=== PATIENT | male | born 1960 | race Hispanic/Latino ===

== ENCOUNTER 2016-11-04 19:52 | Inpatient (IN) | payer MEDICARE, MEDICAID ==
[2016-11-04 19:52] VITALS: PULSE 90
[2016-11-04 20:15] VITALS: BMI 55.3
[2016-11-04] MEDS ORDERED: Morphine 4 mg/ml ISec IVP STA (20:30)
--- NOTE | 2016-11-04 20:41 | ED PDOC ---
Arrival/HPI - General Historian: Patient - General Time Seen by Provider: 11/04/16 20:09 - History of Present Illness Narrative History of Present Illness (Text): 11/04/16 20:38 [facility] w/ PMHx of HTN, DM, morbid obesity, COPD, CHF, urosepsis multiple times, chronic Montague and infections, reports one day h/o pain to the penile area, suprapubic area, chills, tactile fever with difficulty urinating despite having a montague catheter, states that his leg bag only had 25 ml of urine in it this morning and right now is empty. Patient also reports feeling SOB with no chest pain this afternoon around 1 pm, which lasted a few minutes and resolved. At this time, the patient denies any SOB, dyspnea or chest pain. Otherwise: (+) cough, (-) sore throat, (-) URI symptoms, (-) chest pain, (-) N/V/D, (-) flank pain, (-) other complaints. Uro : Rodney Ly PMD : Neela Colindres PA-C) Past Medical History - Provider Review Nursing Documentation Reviewed: Yes - Infectious Disease Hx of Infectious Diseases: None - Cardiac Hx Congestive Heart Failure: Yes Hx Hypertension: Yes - Pulmonary Hx Chronic Obstructive Pulmonary Disease (COPD): Yes - Neurological Other/Comment: Paraplegic / spinal tumor - HEENT Hx HEENT Disorder: No - Renal Hx Renal Disorder: No - Endocrine/Metabolic Hx Diabetes Mellitus Type 2: Yes - Hematological/Oncological Hx Anemia: Yes - Integumentary Hx Dermatological Disorder: No - Musculoskeletal/Rheumatological Hx Falls: No Other/Comment: paraplygia - Gastrointestinal Other/Comment: Morbid obesity, incontinent - Genitourinary/Gynecological Hx Genitourinary Disorders: Yes Hx Urinary Tract Infection: Yes - Psychiatric Hx Substance Use: No - Surgical History Other/Comment: laminectomy - Anesthesia Hx Anesthesia: Yes Hx Anesthesia Reactions: No Hx Malignant Hyperthermia: No Family/Social History - Physician Review Nursing Documentation Reviewed: Yes Family/Social History: No Known Family HX Smoking Status: Never Smoked Hx Alcohol Use: No Hx Substance Use: No Allergies/Home Meds Allergies/Adverse Reactions: Allergies Penicillins Allergy (Verified 11/04/16 19:57) ANAPHYLAXIS Home Medications: Home Meds Medication Instructions Recorded Confirmed Famotidine [Pepcid] 20 mg PO BID 09/17/15 11/04/16 Levalbuterol HCl [Xopenex] 1.25 mg IH Q6 PRN 09/17/15 11/04/16 Aspirin [Aspirin Chewable] 81 mg PO DAILY 07/11/16 11/04/16 Review of Systems - Review of Systems Constitutional: Normal, Fevers (tactile). absent: Fatigue, Weight Change Respiratory: Normal, SOB (this afternoon at 1pm, which has resolved), Cough. absent: Sputum, Wheezing Cardiovascular: Normal. absent: Chest Pain, Palpitations, Edema Gastrointestinal: Normal, Abdominal Pain. absent: Stool Changes, Appetite Changes Genitourinary Male: Normal, Dysuria, Urinary Output Changes (decrease in urine output). absent: Frequency, Hematuria Musculoskeletal: Normal. absent: Arthralgias, Back Pain, Neck Pain Skin: Normal. absent: Rash, Pruritis, Skin Lesions Neurological: Normal. absent: Headache, Dizziness, Focal Weakness Physical Exam - Physical Exam Narrative Physical Exam (Text): 11/04/16 20:43 GENERAL APPEARANCE: Patient is awake, alert, oriented x 3, in no mild painful distress. Patient is morbidly obese. SKIN: Warm, dry; (-) cyanosis, (-) rash. (-) Decubitus Ulcer EYES: (-) conjunctival pallor, (-) scleral icterus, (-) conjunctival hemorrhage. ENMT: Mucous membranes moist. Airway patent: (-) stridor. Pharynx: (-) erythema, (-) exudate. NECK: (-) tenderness, (-) stiffness, (-) meningismus, (-) lymphadenopathy. CHEST AND RESPIRATORY: (-) accessory muscle use. Lungs: (-) rales, (-) rhonchi, (-) wheezes, (-) rub; breath sounds equal bilaterally. HEART AND CARDIOVASCULAR: (-) irregularity; (-) murmur, (-) gallop, (-) rub. ABDOMEN AND GI: Soft; (+) suprapubic tenderness, (-) guarding; (-) organomegaly ; (-) mass; (-) CVA tenderness. : due to patient's body habitus, penis is not well visualized, (+) montague catheter with (+) yellow purulent discharge noted, (+) erythema to the scrotum with no tenderness and no edema. 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 EXTREMITIES: (-) deformity; (-) cellulitis, (-) lymphangitis; (-) subungual hemorrhage; (-) edema. NEURO AND PSYCH: Mental status as above; (-) focal findings. (Jorge KHAN, Neela Leggett) Vital Signs Temp Pulse Resp BP Pulse Ox 11/05/16 00:14 93 H 16 98 11/04/16 19:52 98.6 F 90 16 138/94 H 94 L Medical Decision Making ED Course and Treatment: I was available for consultation during PA evaluation. The chart was reviewed by me, and I agree with disposition. The documented history was done by the physician television tube inspector. The documented physical exam was done by the physician television tube inspector. The documented procedures were done by the physician television tube inspector. ( Riaz Tapia) 11/04/16 20:45 55 yo morbidly obese M presents with tactile fever, chills, cough, dysuria and decrease in urine output despite montague catheter. Plan: -- Labs -- IV fluids -- Urinalysis -- Wound, blood and urine culture -- CXR -- Morphine / Zofran -- Reassess and disposition Call placed to Dr. Rodney Ly. Case d/w Dr. Ly, recommends to flush and montague and not the remove at this time. CXR: NAD, as read by PA EKG: NSR at 100 bpm, (-) acute ST changes, as read by PA Labs reviewed, patient noted to have a WBC of 18, lactate wnl. Unable to obtain urine at this time. On reevaluation, patient is lying in bed comfortably in no acute distress, denies any shortness of breath, chest pain, nausea, abdominal pain, fever. Vital signs are stable physical exam is unchanged. Prior medical records reviewed. Patient has had a urine culture in the past 08/12 which showed gram (-) rods but no sensitivity was done due to colony count < 10K and another urine culture on 07/12/16 showed providencia stuatii, which is sensitive to rocephin. Of note, patient does not have a true pcn allergy, states that he "turns brown" in color when he takes pcn, denies any redness, rash, itchiness, facial / tongue / throat swelling or SOB when taking pcn. Rocephin 1 g IV ordered. Call placed to Dr. Rodney Ly and Dr. Frazier. Case d/w Dr. Frazier, arrangements made to admit the patient, she agrees with current plan of care. Case discussed with Dr. Ly and he recommends that the ER staff attempt to change the patient's Montague catheter. PATIENT AMBASSADOR and PA was able to successfully remove the old catheter and replace it with a new Montague catheter. The leg bag had drained of 350 mL of yellow purulent material mixed with urine from the new Montague catheter inserted by PATIENT AMBASSADOR. (Jorge KHAN,Neela Leggett) - Lab Interpretations Lab Results: 11/04/16 21:10 11/04/16 21:10 Lab Results 11/04/16 21:10: pO2 28 L, VBG pH 7.38, VBG pCO2 57.0, VBG HCO3 33.7 H, VBG Total CO2 35.4 H, VBG O2 Sat (Calc) 59.8, VBG Base Excess 6.8 H, VBG Potassium 4.6, Sodium 136.0, Chloride 98.0, Glucose 144 H, Lactate 1.8, FiO2 21.0, Venous Blood Potassium 4.6 11/04/16 21:10: Sodium 134, Chloride 97 L, Potassium 4.3, Carbon Dioxide 31, Anion Gap 10, BUN 24 H, Creatinine 1.2, Est GFR ( Amer) > 60, Est GFR ( Non-Af Amer) > 60, Random Glucose 136 H, Calcium 9.4, Total Bilirubin 0.5, AST 30, ALT 47, Alkaline Phosphatase 85, Total Protein 7.7, Albumin 3.9, Globulin 3.8, Albumin/Globulin Ratio 1.0 L 11/04/16 21:10: WBC 18.4 H D, RBC 6.11 H, Hgb 17.5, Hct 50.4, MCV 82.5, MCH 28.6 , MCHC 34.7, RDW 14.1, Plt Count 246, MPV 10.6, Neutrophils % (Manual) 83 H, Band Neutrophils % 4 H, Lymphocytes % (Manual) 8 L, Monocytes % (Manual) 4, Eosinophils % (Manual) 1, Platelet Evaluation Normal - RAD Interpretation Radiology Orders: 11/04/16 20:31 CHEST TWO VIEWS (PA/LAT) [RAD] Stat - Medication Orders Current Medication Orders: Discontinued Medications Ceftriaxone Sodium (Rocephin 1 Gram Ivpb) 1 gm in 100 mls @ 200 mls/hr IVPB STAT STA PRN Reason: Protocol Stop: 11/04/16 22:38 Last Admin: 11/04/16 23:04 Dose: 200 mls/hr Morphine Sulfate (Morphine) 4 mg IVP STAT STA Stop: 11/04/16 20:31 Last Admin: 11/04/16 21:08 Dose: 4 mg Ondansetron HCl (Zofran Inj) 4 mg IVP STAT STA Stop: 11/04/16 20:31 Last Admin: 11/04/16 21:08 Dose: 4 mg - PA / TELETYPE MECHANIC / Resident Statement /DO has reviewed & agrees with the documentation as recorded. Disposition/Present on Arrival - Present on Arrival Any Indicators Present on Arrival: Yes History of DVT/PE: No History of Uncontrolled Diabetes: No Urinary Catheter: Yes History of Decub. Ulcer: No History Surgical Site Infection Following: None - Disposition Have Diagnosis and Disposition been Completed?: Yes Disposition Time: 22:25 Patient Plan: Admission - Disposition Diagnosis: Urinary retention, Urinary catheter infection Disposition: HOSPITALIZED Patient Problems: Current Active Problems Problem Status Onset Urinary catheter infection Acute Urinary retention Acute Condition: STABLE
[2016-11-04 21:25] LABS: VENOUS BLOOD GAS BASE EXCESS 6.8 mmol/L (0.0-2.0); VENOUS BLOOD PH 7.38 (7.32-7.43)
[2016-11-04 21:30] LABS: ADD MANUAL DIFF? YES; HEMATOCRIT 50.4 % (42.0-52.0); MEAN CELL VOLUME 82.5 fL (80.0-105.0); MEAN CORPUSCULAR HEMOGLOBIN 28.6 pg (25.0-35.0); MEAN CORPUSCULAR HGB CONC 34.7 g/dl (31.0-37.0); MEAN PLATELET VOLUME 10.6 fl (7.0-11.0); PLATELET COUNT 246 10^3/uL (120.0-450.0); RED CELL DISTRIBUTION WIDTH 14.1 % (11.5-14.5); WHITE BLOOD COUNT 18.4 10^3/ul (4.5-11.0)
[2016-11-04 21:34] LABS: ALKALINE PHOSPHATASE 85 U/L (38-133); ALT/SGPT 47 U/L (7-56); AST/SGOT 30 U/L (15-59); BILIRUBIN,TOTAL 0.5 mg/dL (0.2-1.3); BLOOD UREA NITROGEN 24 mg/dL (7-21); CALCIUM 9.4 mg/dL (8.4-10.5); CARBON DIOXIDE 31 mmol/L (21-33); CHLORIDE 97 mmol/L (98-107); GFR AFRICAN-AMERICAN > 60; GLUCOSE,RANDOM 136 mg/dL (70-110); POTASSIUM 4.3 mmol/L (3.6-5.0); SODIUM 134 mmol/L (132-148); TOTAL PROTEIN 7.7 g/dL (5.8-8.3)
[2016-11-04] MEDS ORDERED: cefTRIAXone 1 gm 1 GM/100 ML BAG IVPB STA (22:09)
[2016-11-04 23:22] LABS: NEUTROPHIL 83 % (50.0-70.0)
[2016-11-04 23:23] LABS: BAND 4 % (0-2); EOSINOPHIL 1 % (0.0-3.0); PLATELET ESTIMATE NORMAL (NORMAL)
[2016-11-05 01:13] LABS: URINE BILIRUBIN NEGATIVE (NEGATIVE); URINE BLOOD LARGE (NEGATIVE); URINE GLUCOSE (UA) NEGATIVE (NEGATIVE); URINE KETONE NEGATIVE (NEGATIVE); URINE LEUKOCYTE ESTERASE MODERATE Leu/uL (NEGATIVE); URINE PROTEIN 100 mg/dL (<30 mg/dL); URINE UROBILINOGEN 0.2 E.U./dL (<1 E.U./dL)
[2016-11-05 01:15] LABS: URINE APPEARANCE TURBID (CLEAR); URINE COLOR YELLOW (YELLOW)
[2016-11-05 01:22] LABS: URINE WBC TNTC /hpf (0-6)
[2016-11-05] MEDS ORDERED: Oxycodone/Acetaminophen 10/325 mg Tab PO STA (05:48)
--- NOTE | 2016-11-05 05:49 | CP.PCM.PN ---
Subjective - Date & Time of Evaluation Date of Evaluation: 11/05/16 Time of Evaluation: 05:48 - Subjective Subjective: This 55 year old white male with history of DM, HTN, morbid obesity, CHF, COPD, urosepsis, chronic Ceron , and urinary infections, is admitted for urinary retention and urinary tract infection. He was seen at bedside because he complained of pain in lower back, right leg, pain is mild ,not associated with paraesthesia, weakness. Objective - Vital Signs/Intake and Output Vital Signs (last 24 hours): Temp Pulse Resp BP Pulse Ox 97.9 F 92 H 20 123/77 96 11/05/16 01:05 11/05/16 01:05 11/05/16 01:11/05/16 01:11/05/16 00:30 - Medications Medications: Current Medications Oxycodone/Acetaminophen (Percocet 10/325 Mg Tab) 1 tab PO STAT STA Stop: 11/05/16 05:49 - Constitutional Appears: Well, No Acute Distress - Head Exam Head Exam: ATRAUMATIC, NORMOCEPHALIC - Eye Exam Eye Exam: Normal appearance - ENT Exam ENT Exam: Normal External Ear Exam - Neck Exam Neck Exam: Normal Inspection - Respiratory Exam Respiratory Exam: NORMAL BREATHING PATTERN - Cardiovascular Exam Cardiovascular Exam: absent: JVD - GI/Abdominal Exam GI & Abdominal Exam: absent: Distended - Rectal Exam Rectal Exam: Deferred - Extremities Exam Extremities Exam: Normal Inspection - Back Exam Back Exam: NORMAL INSPECTION - Neurological Exam Neurological Exam: Alert, Oriented x3 - Psychiatric Exam Psychiatric exam: Normal Affect, Normal Mood - Skin Skin Exam: Normal Color Assessment and Plan - Assessment and Plan (Free Text) Assessment: Low back pain. Righ leg pain. Obesity. Urinary tract infection. Urinary retention. DM II. HTN. CHF. COPD. Plan: Percocet 325/10 one dose stat. Continue present management.
[2016-11-05] MEDS ORDERED: Levalbuterol 1.25 MG/3 ML Inhal Soln UD IH PRN (06:41)
[2016-11-05] MEDS: Insulin Reg-LOW-Coverage SC SCH ×4 (08:09→22:03)
[2016-11-05] MEDS: Nystatin 100,000 Units/gm Topical Pow(15 gm) TOP SCH ×2 (09:43→18:21)
--- NOTE | 2016-11-05 10:02 | RAD ---
HISTORY: cough COMPARISON: No prior. TECHNIQUE: Chest PA and lateral FINDINGS: LUNGS: No active pulmonary disease. PLEURA: No significant pleural effusion identified. No pneumothorax apparent. CARDIOVASCULAR: Normal. OSSEOUS STRUCTURES: No significant abnormalities. VISUALIZED UPPER ABDOMEN: Normal. OTHER FINDINGS: None. IMPRESSION: No active disease.
--- NOTE | 2016-11-05 15:49 | CARD ---
APPROVED REPORT EKG Measurement Heart [id number] <Conclusion> Normal sinus rhythm Possible Left atrial enlargement Borderline ECG
[2016-11-05] MEDS: Oxycodone/Acetaminophen 5/325 mg Tab PO PRN (20:06)
[2016-11-06] MEDS: Oxycodone/Acetaminophen 5/325 mg Tab PO PRN ×3 (02:47→23:21)
--- NOTE | 2016-11-06 08:05 | HP ---
The patient is a 55-year-old male. CHIEF COMPLAINT: Lower abdominal pain, burning. HISTORY OF PRESENT ILLNESS: The patient with past medical history of hypertension, diabetes mellitus, morbid obesity, COPD, congestive heart failure , urosepsis multiple times, chronic Ceron catheter and multiple infections. Complained about pain in the penile area, suprapubic area, chills, just started fever, difficulty urinating despite having Ceron catheter. States that his bag only had of urine in bag this morning and right now is empty. The patient also reports feeling shortness of breath with no chest pain in this afternoon around 1 p.m. Then actually, staff called me and I told them to transfer the patient to the Emergency Room. The patient was seen and examined in his room, looks comfortable, positive coughing. PAST MEDICAL HISTORY: Hypertension, diabetes mellitus, morbid obesity, COPD, congestive heart failure, urosepsis multiple times, chronic Ceron catheter and infection, anemia, paraplegia, penectomy, multiple times urinary tract infection, laminectomy, history of a back tumor. FAMILY HISTORY: Father and mother noncontributory. HABITS: Never smoking, no drugs, no ethanol. ALLERGIES: THE PATIENT IS ALLERGIC TO PENICILLIN. HOME MEDICATIONS: Pepcid, Xopenex, aspirin. REVIEW OF SYSTEMS: The patient seen and examined on the bedside, looks comfortable. No nausea, vomiting, diarrhea. No hematuria, no hematochezia. No swelling of the leg. No chest pain, no palpitation, but sometimes coughing, having shortness of breath. Pain during urination, penile area has irritation, has penectomy. PHYSICAL EXAMINATION: VITAL SIGNS: Temperature 98.6, pulse 60, respiratory rate 18, blood pressure 120/80. HEENT: Head normocephalic, atraumatic. Eyes: PERRLA. Extraocular muscles intact. Conjunctivae clear. Nose patent. Mucous membranes moist. NECK: Supple. No carotid bruit, no JVD, no thyromegaly. CHEST: Bilaterally symmetrical. HEART: S1, S2 positive. LUNGS: Clear to auscultation. ABDOMEN: Soft, no organomegaly. EXTREMITIES: No edema, no cyanosis. NEUROLOGIC: The patient is awake, alert, moving all 4 extremities. No focal deficits. LABORATORIES: White blood cells is 18.4, hemoglobin 17.5, hematocrit 50.4, platelets 246. Sodium 134, potassium 4.3, BUN 24, creatinine 1.2, glucose 136. ASSESSMENT AND PLAN: The patient is a 55-year-old male with leukocytosis, hyperglycemia, hypochloremia, increased BUN, has urinary tract infection, urinary retention. The patient is admitted. Consult called with Dr. Ly, urologist, and infectious disease, Dr. Madden. The patient failed treatment as outpatient, has history of hypertension, diabetes mellitus, morbid obesity, chronic obstructive pulmonary disease, congestive heart failure, urosepsis multiple times, chronic Ceron catheter. Started antibiotics. Now, he is complaining about constipation. Will give him MiraLax. We will follow up. Thalia Frazier MD cc: [id number] TT: 11/06/2016 08:05:06 en MTDD
[2016-11-06] MEDS: Insulin Reg-LOW-Coverage SC SCH ×3 (08:12→17:25)
[2016-11-06] MEDS: POLYETHYLENE GLYCOL 3350 17 GM/Dose PACKET PO SCH (09:53)
[2016-11-06] MEDS: Nystatin 100,000 Units/gm Topical Pow(15 gm) TOP SCH ×3 (09:57→18:45)
[2016-11-06] MEDS: Aztreonam 1 Gm in NS 100mL 100 ML IVPB SCH ×2 (17:33→21:42)
--- NOTE | 2016-11-06 18:12 | CON ---
DATE: 11/06/2016 REFERRING PHYSICIAN: Dr. Frazier. REASON FOR CONSULT: Chronic lung disease, paraplegic, obesity, may have sleep apnea syndrome. HISTORY OF PRESENT ILLNESS: This is a 55-year-old gentleman with multiple medical issues, he is a pa raplegic with hypertension, diabetes, chronic lung disease, heart failure, recurrent urosepsis, who s tarted having fever, chills, pain in the suprapubic area. Urine output was decreased, urine bag was empty when he came to ER. Ceron catheter was changed and placed new one with some relieving of the d iscomfort. Never had study for sleep apnea, mild shortness of breath with exertion. No hemoptysis o r hematemesis, no hematuria, no diarrhea. PAST MEDICAL HISTORY: Paraplegia, chronic lung disease, hypertension, diabetes, morbid obesity, hear t failure, catheter dependent for urination. FAMILY HISTORY: No significant cardiopulmonary disease reported. SOCIAL HISTORY: Nonsmoker, nondrinker. ALLERGIES: PENICILLIN. MEDICATIONS: He is on aspirin 81 mg daily, doxycycline 100 mg twice a day, heparin 5000 units subQ q . 8 hours, insulin coverage, metoprolol tartrate 25 mg twice a day, MiraLax 17 grams daily, nystatin 1 gram twice a day, Pepcid 20 mg twice a day, Percocet 5/325 one tab q. 4 hours p.r.n. and Xopenex 1 .25 mg q. 6 hours. REVIEW OF SYSTEMS: No headache, no rhinitis. Admits to have snoring, daytime sleepy and tired. No chest pain, no nausea, no vomiting. Short of breath with exertion. He feels better after replacing the Ceron catheter, trace leg swelling. PHYSICAL EXAMINATION: GENERAL: Lying in the bed in no acute distress. VITAL SIGNS: Temp is 98, heart rate is 65, respiratory rate is 20, blood pressure 149/97, pulse ox 9 6% on nasal cannula. HEENT: Moist mucous membranes. Crowded airway. Mallampati score is 4. NECK: Short, thick neck. LUNGS: Has a few scattered rhonchi. HEART: S1 and S2. ABDOMEN: Soft, nontender. No organomegaly. EXTREMITIES: Does have trace edema, does not have a penis, has a hole with catheter in. NEUROLOGIC: Awake, alert, follows simple commands. He is a paraplegic. LABORATORY DATA: Shows hemoglobin 17.5, hematocrit 50.4, WBC 18,000, platelet is 246. PTT is 55. V BG show pH 7.38, pCO2 of 57, O2 of 28. Blood sugar is 120. Sodium 134, potassium 4.3, chloride 97, bicarbonate 31, BUN 24, creatinine 1.2, glucose 136, calcium 9.4, AST 30, ALT 47, alkaline phosphatas e is 85, albumin is 3.9. Urine culture has gram-negative rods. Blood culture: There is no growth. IMPRESSION AND PLAN: Recurrent urinary tract infection, obstruction of Ceron catheter with urinary r etention, paraplegic, sleep apnea syndrome, diabetes, morbid obesity, chronic lung disease. We will discontinue doxycycline, place him on Zosyn 2 g IV q. 8 hours, pending urine culture report. Replac ement BiPAP 03/10 with 35% oxygen while sleeping. Gastric prophylaxis, deep venous thrombosis prophyl axis. Thank you and will follow with you. Yosef Dunbar MD cc: [id number] TT: 11/06/2016 18:11:22 Confirmation # [id number] Dictation # [id number] jn
--- NOTE | 2016-11-06 18:24 | PN ---
DATE: 11/06/2016 SUBJECTIVE: The patient was seen and examined on the bedside. Still complaining about lower abdominal pain. No nausea, vomiting, or diarrhea. No hematuria or hematochezia. No headache, no dizziness. No fever, no chills. No shortness of breath. PHYSICAL EXAMINATION: VITAL SIGNS: Temperature is 99.1, pulse 60, blood pressure 144/80, respiratory rate 19. HEENT: Head normocephalic, atraumatic. Eyes: PERRLA. Extraocular muscles intact. Conjunctivae clear. Nose patent. Mucous membranes moist. NECK: Supple. No carotid bruit or thyromegaly. CHEST: Bilaterally symmetrical. HEART: S1, S2 positive. LUNGS: Clear to auscultation. ABDOMEN: Soft. Bowel sounds present. No organomegaly. EXTREMITIES: No edema, no cyanosis. NEUROLOGIC: The patient is awake, alert, moving all 4 extremities. No focal deficits. MEDICATIONS: Aspirin, Azactam, heparin, insulin, Lopressor, MiraLax, Pepcid, oxycodone and Xopenex. LABORATORY DATA: White blood cells 18.4, hemoglobin 17.5, hematocrit 50.4, and platelets 246. Glucose 120, 112, 145, 144, 122 and 115. ASSESSMENT AND PLAN: The patient has a history of hypertension, diabetes mellitus, morbid obesity, chronic obstructive pulmonary disease, congestive heart failure, urosepsis multiple times, a chronic Ceron catheter and a genitourinary infection, anemia, paraplegia, penectomy, multiple times urinary tract infection, laminectomy, and history of a back tumor, who came with another type of a urinary tract infection. Has leukocytosis, hyperglycemia, hyperchloremia and came with urinary retention also. The patient was admitted Dr. Ankit Ly, Urologist and infectious disease, Dr. Madden consult was called. the antibiotics the patient is improving. We will continue aspirin, aztreonam, and heparin subcutaneously 5000 for DVT prophylaxis, metoprolol for blood pressure, MiraLax for constipation, Pepcid for GI prophylaxis, oxycodone once in a while for severe pain. The patient is on Xopenex will follow up. Thalia Frazier MD cc: [id number] TT: 11/06/2016 18:23:59 Confirmation # [id number] Dictation # [id number] UGARTE
[2016-11-06] MEDS ORDERED: Levalbuterol 1.25 MG/3 ML Inhal Soln UD IH PRN (18:33)
[2016-11-07] MEDS: Insulin Reg-MEDIUM-Coverage SC SCH ×4 (00:11→16:14)
[2016-11-07 07:37] LABS: HEMATOCRIT 42.2 % (42.0-52.0); MEAN CELL VOLUME 84.1 fL (80.0-105.0); MEAN CORPUSCULAR HEMOGLOBIN 27.9 pg (25.0-35.0); MEAN CORPUSCULAR HGB CONC 33.2 g/dl (31.0-37.0); MEAN PLATELET VOLUME 10.7 fl (7.0-11.0); RED CELL DISTRIBUTION WIDTH 14.3 % (11.5-14.5); WHITE BLOOD COUNT 8.8 10^3/ul (4.5-11.0)
[2016-11-07 07:52] LABS: ALKALINE PHOSPHATASE 68 U/L (38-133); ALT/SGPT 37 U/L (7-56); AST/SGOT 17 U/L (15-59); BILIRUBIN,TOTAL 0.6 mg/dL (0.2-1.3); BLOOD UREA NITROGEN 19 mg/dL (7-21); CALCIUM 8.4 mg/dL (8.4-10.5); CARBON DIOXIDE 31 mmol/L (21-33); CHLORIDE 100 mmol/L (98-107); GFR AFRICAN-AMERICAN > 60; GLUCOSE,RANDOM 102 mg/dL (70-110); SODIUM 135 mmol/L (132-148); TOTAL PROTEIN 6.9 g/dL (5.8-8.3)
[2016-11-07 08:21] LABS: CHOLESTEROL 191 mg/dL (130-200)
[2016-11-07 08:25] LABS: INR 2.41 (0.93-1.08)
--- NOTE | 2016-11-07 08:25 | PN ---
DATE: 11/07/2016 The patient is a 55-year-old male. The patient was seen and examined on the bedside, having BiPAP, l ooks relaxed. No fever, no chills. No nausea, vomiting, diarrhea. No hematuria, no hematochezia. No headache, no dizziness. PHYSICAL EXAMINATION: VITAL SIGNS: Temperature 99.1, pulse 80, blood pressure 144/80, respiratory rate 19. HEENT: Head normocephalic, atraumatic. Eyes closed. Nose patent. Mucous membranes moist. NECK: Supple. No carotid bruit, no JVD, no thyromegaly. CHEST: Bilaterally symmetrical. HEART: S1, S2 positive. LUNGS: Clear to auscultation. ABDOMEN: Soft. Bowel sounds positive. EXTREMITIES: No edema, no cyanosis. NEUROLOGIC: The patient is sleepy, arousable, moving all 4 extremities. MEDICATIONS: Aspirin, Coumadin, heparin, insulin, Lopressor, MiraLax, nystatin powder, famotidine, P ercocet, Xopenex. LABORATORIES: White blood cells 18.4, hemoglobin 17.5, hematocrit 50.4, platelets 246. Glucose 139, 110, 120, 112, 145, 144. ASSESSMENT AND PLAN: The patient is a 55-year-old male with leukocytosis, uncontrolled diabetes fabrizio itus, has proteinuria, hematuria, urinary tract infection, comorbid obesity, had splenectomy, in dwel ling Ceron catheter. Recurrent urinary tract infection, obstructive uropathy with Ceron catheter, ur inary retention, paraplegia, sleep apnea syndrome, history of benign tumor of the back, diabetes fabrizio itus, morbid obesity, chronic obstructive lung disease. Dr. Dunbar discontinued the doxycycline, put the patient on Zosyn, pending on the urine culture. Replacement BiPAP 10/ with 35 oxygen while slee ping. Gastric prophylaxis, deep venous thrombosis prophylaxis. Will repeat labs. The patient has h istory of atrial fibrillation with deep venous thrombosis, was on Coumadin. Restarted Coumadin and h eparin. Will follow up. Thalia Frazier MD cc: [id number] TT: 11/07/2016 08:24:50 Confirmation # [id number] Dictation # [id number]
[2016-11-07] MEDS: POLYETHYLENE GLYCOL 3350 17 GM/Dose PACKET PO SCH (09:11)
[2016-11-07] MEDS: Nystatin 100,000 Units/gm Topical Pow(15 gm) TOP SCH ×2 (09:13→17:31)
[2016-11-07] MEDS ORDERED: levoFLOXacin 500 MG TAB PO SCH (12:15)
[2016-11-07] MEDS: Oxycodone/Acetaminophen 5/325 mg Tab PO PRN (13:49)
[2016-11-07 17:08] VITALS: BP 170/94; PULSE 60; RESP 18; TEMP 98.4; O2SAT 94
--- NOTE | 2016-11-07 18:41 | CP.PCM.CON ---
History of Present Illness - History of Present Illness History of Present Illness: Infectious Disease Consultation: November 07, 2016 54 yo male with morbid obesity [place] [facility] [place], fevers, and chills. Upper thigh pain. Leukocytosis of 18.4 on admission. Patient appears awake and alert. Supportive care. No fevers documented during this hospitalization. Wood cultures taken. Patient with suprapubic site discomfort and difficulty urinating. PMHx: Congestive Heart Failure, Chronic Obstructive Pulmonary Disease, Morbid Obesity , Benign Neoplasm of Spine, Paraplegia, history of multiple UTIs, left eye blindness. PSHx: Laminectomy 03/2015, Catheter placement 02/2015 Allergies: PCN Social Hx: no tobacco, EtOH, or illicit drug use. [place] resident Active Medications Aspirin (Aspirin Chewable) 81 mg PO DAILY [facility] Last Admin: 11/07/16 09:09 Dose: 81 mg Famotidine (Pepcid) 20 mg PO 1000,2200 [facility] Last Admin: 11/07/16 09:11 Dose: 20 mg Heparin Sodium (Porcine) (Heparin) 5,000 units SC Q8 [facility] PRN Reason: Protocol Last Admin: 11/07/16 13:46 Dose: 5,000 units Insulin Human Regular (Humulin R Med) 0 units SC ACHS [facility] PRN Reason: Protocol Last Admin: 11/07/16 16:14 Dose: Not Given Levalbuterol HCl (Xopenex) 1.25 mg IH Q6 PRN PRN Reason: Shortness of Breath Levofloxacin (Levaquin) 500 mg PO DAILY [facility] Stop: 11/14/16 00:01 Last Admin: 11/07/16 12:21 Dose: 500 mg Metoprolol Tartrate (Lopressor) 25 mg PO BID [facility] Last Admin: 11/07/16 17:31 Dose: 25 mg Nystatin (Nystop Topical Powder) 1 gm TOP BID [facility] Last Admin: 11/07/16 17:31 Dose: 1 applic Oxycodone/Acetaminophen (Percocet 5/325 Mg Tab) 1 tab PO Q4 PRN PRN Reason: Pain, moderate (4-7) Stop: 11/09/16 18:34 Last Admin: 11/07/16 13:49 Dose: 1 tab Polyethylene Glycol (Miralax) 17 gm PO DAILY [facility] Last Admin: 11/07/16 09:11 Dose: 17 gm Warfarin Sodium (Coumadin) 2.5 mg PO 1800 [facility] PRN Reason: Protocol Last Admin: 11/07/16 17:30 Dose: 2.5 mg Family Hx: none given ROS: No fevers, chills, nausea, vomiting, diarrhea, headaches, dizziness, chest pain , melena, hematuria, hematemesis, hematochezia, depression, anxiety, vision loss , hearing loss, loss of consciousness, chest pain, abdominal pain. Past Patient History - Infectious Disease Hx of Infectious Diseases: None - Past Medical History & Family History Past Medical History?: Yes - Past Social History Smoking Status: Former Smoker - CARDIAC Hx Congestive Heart Failure: Yes Hx Hypertension: Yes - PULMONARY Hx Chronic Obstructive Pulmonary Disease (COPD): Yes - NEUROLOGICAL Other/Comment: Paraplegic / spinal tumor - HEENT Hx HEENT Problems: No - RENAL Hx Chronic Kidney Disease: No - ENDOCRINE/METABOLIC Hx Diabetes Mellitus Type 2: Yes - HEMATOLOGICAL/ONCOLOGICAL Hx Anemia: Yes - INTEGUMENTARY Hx Dermatological Problems: No - MUSCULOSKELETAL/RHEUMATOLOGICAL Hx Falls: No - GASTROINTESTINAL Other/Comment: Morbid obesity, incontinent - GENITOURINARY/GYNECOLOGICAL Hx Genitourinary Disorders: Yes Hx Urinary Tract Infection: Yes - PSYCHIATRIC Hx Substance Use: No - SURGICAL HISTORY Other/Comment: laminectomy - ANESTHESIA Hx Anesthesia: Yes Hx Anesthesia Reactions: No Hx Malignant Hyperthermia: No Meds Home Medications: Home Medication List Medication Instructions Recorded Confirmed Type Polyethylene Glycol 3350 [Miralax] 17 gm PO DAILY packet 11/07/16 Rx Warfarin [Coumadin] 2.5 mg PO 1800 tab 11/07/16 Rx levoFLOXacin [Levaquin] 500 mg PO DAILY tab 11/07/16 Rx Allergies/Adverse Reactions: Allergies Allergy/AdvReac Type Severity Reaction Status Date / Time Penicillins Allergy ANAPHYLAXIS Verified 11/04/16 19:57 - Medications Medications: Current Medications Aspirin (Aspirin Chewable) 81 mg PO DAILY [facility] Last Admin: 11/07/16 09:09 Dose: 81 mg Famotidine (Pepcid) 20 mg PO 1000,2200 [facility] Last Admin: 11/07/16 09:11 Dose: 20 mg Heparin Sodium (Porcine) (Heparin) 5,000 units SC Q8 [facility] PRN Reason: Protocol Last Admin: 11/07/16 13:46 Dose: 5,000 units Insulin Human Regular (Humulin R Med) 0 units SC ACHS [facility] PRN Reason: Protocol Last Admin: 11/07/16 16:14 Dose: Not Given Levalbuterol HCl (Xopenex) 1.25 mg IH Q6 PRN PRN Reason: Shortness of Breath Levofloxacin (Levaquin) 500 mg PO DAILY [facility] Stop: 11/14/16 00:01 Last Admin: 11/07/16 12:21 Dose: 500 mg Metoprolol Tartrate (Lopressor) 25 mg PO BID [facility] Last Admin: 11/07/16 17:31 Dose: 25 mg Nystatin (Nystop Topical Powder) 1 gm TOP BID [facility] Last Admin: 11/07/16 17:31 Dose: 1 applic Oxycodone/Acetaminophen (Percocet 5/325 Mg Tab) 1 tab PO Q4 PRN PRN Reason: Pain, moderate (4-7) Stop: 11/09/16 18:34 Last Admin: 11/07/16 13:49 Dose: 1 tab Polyethylene Glycol (Miralax) 17 gm PO DAILY [facility] Last Admin: 11/07/16 09:11 Dose: 17 gm Warfarin Sodium (Coumadin) 2.5 mg PO 1800 [facility] PRN Reason: Protocol Last Admin: 11/07/16 17:30 Dose: 2.5 mg Physical Exam - Constitutional Appears: Non-toxic, No Acute Distress, Chronically Ill Additional comments: morbidly obese - Head Exam Head Exam: ATRAUMATIC, NORMOCEPHALIC - Eye Exam Eye Exam: EOMI, PERRL Pupil Exam: NORMAL ACCOMODATION, PERRL - ENT Exam ENT Exam: Mucous Membranes Moist, Normal External Ear Exam, TM's Normal Bilaterally - Neck Exam Neck exam: Positive for: Full Rom, Normal Inspection - Respiratory Exam Respiratory Exam: Clear to Auscultation Bilateral, NORMAL BREATHING PATTERN. absent: Rales, Rhonchi, Wheezes - Cardiovascular Exam Cardiovascular Exam: REGULAR RHYTHM, RRR, +S1, +S2 - GI/Abdominal Exam GI & Abdominal Exam: Normal Bowel Sounds, Soft. absent: Distended, Tenderness - Extremities Exam Extremities exam: Positive for: joint swelling, pedal edema Additional comments: +1-2 edema of the lower extremities bilaterally. - Neurological Exam Neurological exam: Alert, CN II-XII Intact, Oriented x3 - Psychiatric Exam Psychiatric exam: Normal Affect, Normal Mood Results - Vital Signs Recent Vital Signs: Last Vital Signs Temp 98.4 F 06/05/17 16:00 Pulse 60 11/07/16 16:00 Resp 18 11/07/16 16:00 BP 170/94 H 11/07/16 17:31 Pulse Ox 94 L 11/07/16 16:00 - Labs Result Diagrams: 11/07/16 07:00 11/07/16 07:00 Labs: Laboratory Results - last 24 hr 11/06/16 11/06/16 11/07/16 16:31 21:46 07:00 WBC 8.8 D RBC 5.02 Hgb 14.0 Hct 42.2 MCV 84.1 MCH 27.9 MCHC 33.2 RDW 14.3 Plt Count 218 MPV 10.7 PT INR Sodium Potassium Chloride Carbon Dioxide Anion Gap BUN Creatinine Est GFR ( Amer) Est GFR (Non-Af Amer) POC Glucose (mg/dL) 110 139 H Random Glucose Hemoglobin A1c Calcium Total Bilirubin AST ALT Alkaline Phosphatase Total Protein Albumin Globulin Albumin/Globulin Ratio Triglycerides Cholesterol LDL Cholesterol Direct HDL Cholesterol TSH 3rd Generation 11/07/16 11/07/16 11/07/16 07:00 07:15 08:00 WBC RBC Hgb Hct MCV MCH MCHC RDW Plt Count MPV PT INR Sodium 135 Potassium 4.0 Chloride 100 Carbon Dioxide 31 Anion Gap 8 L BUN 19 Creatinine 0.8 Est GFR ( Amer) > 60 Est GFR (Non-Af Amer) > 60 POC Glucose (mg/dL) 103 Random Glucose 102 Hemoglobin A1c Calcium 8.4 Total Bilirubin 0.6 AST 17 ALT 37 Alkaline Phosphatase 68 Total Protein 6.9 Albumin 3.4 Globulin 3.5 Albumin/Globulin Ratio 1.0 L Triglycerides 192 H Cholesterol 191 LDL Cholesterol Direct 128 HDL Cholesterol 29 TSH 3rd Generation 11/07/16 11/07/16 11/07/16 08:00 08:00 10:50 WBC RBC Hgb Hct MCV MCH MCHC RDW Plt Count MPV PT 26.0 H INR 2.41 H Sodium Potassium Chloride Carbon Dioxide Anion Gap BUN Creatinine Est GFR ( Amer) Est GFR (Non-Af Amer) POC Glucose (mg/dL) Random Glucose Hemoglobin A1c 6.2 Calcium Total Bilirubin AST ALT Alkaline Phosphatase Total Protein Albumin Globulin Albumin/Globulin Ratio Triglycerides Cholesterol LDL Cholesterol Direct HDL Cholesterol TSH 3rd Generation 1.99 11/07/16 11/07/16 11:44 16:08 WBC RBC Hgb Hct MCV MCH MCHC RDW Plt Count MPV PT INR Sodium Potassium Chloride Carbon Dioxide Anion Gap BUN Creatinine Est GFR ( Amer) Est GFR (Non-Af Amer) POC Glucose (mg/dL) 170 H 117 H Random Glucose Hemoglobin A1c Calcium Total Bilirubin AST ALT Alkaline Phosphatase Total Protein Albumin Globulin Albumin/Globulin Ratio Triglycerides Cholesterol LDL Cholesterol Direct HDL Cholesterol TSH 3rd Generation Assessment & Plan - Assessment and Plan (Free Text) Assessment: 55 yo male who is morbidly obese presenting with groin pain, fevers, and chills. Proteus grew from wound cultures although urine cultures are still pending. The patient is on Levaquin now and was on Aztreonam for a day or so. The patient states that he feels better currently. Supportive care. Proteus growth sensitive to Aztreonam but the gram negative in the urine is still pending identification. Continue on Levaquin for now. Thank you for allowing me to participate in the care of the patient, we will follow with you.
--- NOTE | 2016-11-08 07:37 | PN ---
DATE: 11/07/2016 REFERRING PHYSICIAN: Dr. Frazier. SUBJECTIVE: He is lying in the bed, head at 45 degree, night was unremarkable. Tolerated BiPAP well . No headache, no rhinitis, no cough, no shortness of breath, no nausea, no vomiting, draining good urine in the Ceron in, no significant leg swelling. OBJECTIVE: GENERAL: No acute distress. VITAL SIGNS: Temperature is 98, heart rate is 60, respiratory rate is 18, blood pressure 170/94, pul se ox 94% on supplemental oxygen. HEENT: Moist mucous membranes. Crowded airway. Mallampati score is 4. NECK: Supple. No JVD. LUNGS: Has a fair airflow with few rhonchi. HEART: S1 and S2. ABDOMEN: Soft, obese, nontender. Ceron catheter is draining well. EXTREMITIES: There is not much edema. NEUROLOGIC: Awake, alert, follows simple commands. MEDICATIONS: He is on aspirin 81 mg daily, Coumadin 2.5 mg daily, heparin 5000 units subQ q. 8 hour s, insulin coverage, Levaquin 500 mg daily, metoprolol tartrate 25 mg twice a day, MiraLax 17 grams d aily, Pepcid 20 mg twice a day, Percocet 5/325 one tab q. 4 hours p.r.n., Xopenex inhaled q. 6 hours p.r.n. LABORATORY DATA: Shows hemoglobin 14.____, hematocrit 42.2, WBC 8.8, platelet count is 218. INR tod ay 2.41, blood sugar 117, ____ 192, TSH 1.9. Sodium 137, potassium 4.0, chloride 100, bicarbonate 31 , BUN 19, creatinine 0.8, glucose 102, calcium is 8.4. Total bili 0.6, AST 37, ALT 37, alkaline phos phatase is 68, albumin is 3.5. Microbiology: Urine culture has gram-negative cordell, penile area cultu re has proteus mirabilis, which is sensitive to aztreonam as well as Levaquin. The patient IS ALLERGIC TO PENICILLIN. IMPRESSION AND PLAN: Recurrent urinary tract infection, obstructive uropathy, paraplegic, sleep apne a syndrome, diabetes, morbid obesity, chronic lung disease. Continue antibiotics as per infectious d iseases. Continue BiPAP while sleeping. Careful with sedation. Gastric prophylaxis. Deep venous t hrombosis prophylaxis. We will discontinue subQ heparin. INR in the morning. Thank you and will f manuel with you. Yosef Dunbar MD cc: [id number] TT: 11/07/2016 20:21:12 Confirmation # [id number] Dictation # [id number] jn
--- NOTE | 2016-11-11 18:02 | PQF GENQUE ---
11/11/16 Dr. Frazier, Per data processing auditor, ED notes state patient had a urinary catheter infection. Was patient's UTI due to the catheter, or not? Thank you. YES Clarification of your documentation is requested to better reflect the severity of illness and intensity of treatment of your patient. Indicators present [] Specify: [] [] Specify: [] [] Specify: [] [] Specify: [] Location in the medical record that reflects the above clinical findings: [] Treatment Provided: [x] PHYSICIAN'S RESPONSE Based on your medical judgment of the clinical indicators outlined above please clarify the following: [] Practitioner response [] If unable to determine, please check the box, sign and date. Present On Admission (POA) Indicator: []x Present at the time of admission [] Not present at the time of admission [] Clinically Undetermined In responding to this query, please exercise your independent professional judgment. The fact that a question is asked does not imply that any particular answer is desired or expected. Thank you for your clarification on this documentation. If you have any questions please call:[ ] * Thank you, [ ] senior corporate recruiter TORITO
--- NOTE | 2016-12-21 08:19 | DS ---
DATE OF ADMISSION: 11/04/2016 DATE OF DISCHARGE and dictation summery : 11/07/2016 CHIEF COMPLAINT: Lower abdominal pain and burning. HISTORY OF PRESENT ILLNESS: The patient is a 55-year-old male with past medical history of hypertension, diabetes mellitus, morbid obesity, COPD, congestive heart failure, urosepsis, multiple times with a chronic Ceron catheter, multiple infections, came with pain in the penile area, suprapubic area, chills, fever and difficulty in urinating despite having Ceron catheter. Ceron catheter bag is empty. The patient had some obstruction, having pain. We admitted the patient, seen by Dr. Nci Vigil. Urology consult was called, antibiotics were given, got better, [place] back [place] PAST MEDICAL HISTORY: Hypertension, diabetes mellitus, morbid obesity, COPD, congestive heart failure, urosepsis, multiple times; chronic positive catheter and the infections, anemia, paraplegia, bunionectomy multiple times, urinary tract infections, laminectomy and history of back tumor. FAMILY HISTORY: Father, mother are noncontributory. HABITS: Never smoked. No drugs or ethanol as per the patient ALLERGIES: THE PATIENT IS ALLERGIC TO PENICILLIN. HOME MEDICATIONS: Reviewed by me. For more details, see my progress note of 11/07/2016. Thalia Frazier MD cc: [email or web address]
== END 2016-11-07 21:51 | DRG 699 ==
LOC: ED 19:52 → ERH 23:02 → 3RSO 11-05 00:43
PROVIDERS: ADMIT Internal Medicine; ATTEND Internal Medicine
DX: T83.518A Infection and inflammatory reaction due to other urinary catheter, initial encounter (principal); N39.0 Urinary tract infection, site not specified; I11.0 Hypertensive heart disease with heart failure; G82.20 Paraplegia, unspecified; E87.8 Other disorders of electrolyte and fluid balance, not elsewhere classified; I50.9 Heart failure, unspecified; Z68.43 Body mass index [BMI] 50.0-59.9, adult; N13.9 Obstructive and reflux uropathy, unspecified; E11.65 Type 2 diabetes mellitus with hyperglycemia; G47.30 Sleep apnea, unspecified; E66.01 Morbid (severe) obesity due to excess calories; R33.9 Retention of urine, unspecified; H54.42 Blindness, left eye, normal vision right eye; I48.91 Unspecified atrial fibrillation; J44.9 Chronic obstructive pulmonary disease, unspecified; K59.00 Constipation, unspecified; T83.091A Other mechanical complication of indwelling urethral catheter, initial encounter; Y73.2 Prosthetic and other implants, materials and accessory gastroenterology and urology devices associated with adverse incidents; Z79.01 Long term (current) use of anticoagulants; Z87.440 Personal history of urinary (tract) infections; Z87.891 Personal history of nicotine dependence; Z90.81 Acquired absence of spleen; D64.9 Anemia, unspecified; R32 Unspecified urinary incontinence; Z88.0 Allergy status to penicillin; Z87.892 Personal history of anaphylaxis; B96.4 Proteus (mirabilis) (morganii) as the cause of diseases classified elsewhere; M54.5 Low back pain; M79.604 Pain in right leg

== ENCOUNTER 2017-01-15 23:33 | Inpatient (IN) | payer MEDICARE, MEDICAID ==
[2017-01-15 23:33] VITALS: PULSE 90
[2017-01-15 23:40] VITALS: BMI 52.5
--- NOTE | 2017-01-16 00:20 | ED PDOC ---
Arrival/HPI - General Chief Complaint: Back Pain Time Seen by Provider: 01/16/17 00:14 Historian: Patient, Assisted - History of Present Illness Narrative History of Present Illness (Text): 01/16/17 00:20 Marcus Valdovinos is a 55 year old male, whose past medical history includes hypertension, diabetes, morbid obesity, urosepsis multiple times, chronic Montague , COPD, CHF, atrial fibrillation, and quadriplegia due to CVA, who presents to the Emergency department transferred from custodial for right flank pain. Patient states he began experiencing gradually worsening right flank pain since 12:00 yesterday. Patient also complaining of pain at Montague site for the past week. Patient denies any chest pain, shortness of breath, nausea, vomiting, diarrhea, neck pain, headache, dizziness, or any other complaints. PMD: Dr. Stephanie Frazier Symptom Onset: Gradual Symptom Course: Unchanged Activities at Onset: Rest, Light Context: Home ([facility]) Past Medical History - Provider Review Nursing Documentation Reviewed: Yes - Infectious Disease Hx of Infectious Diseases: None - Cardiac Hx Congestive Heart Failure: Yes Hx Hypertension: Yes - Pulmonary Hx Asthma: Yes Hx Chronic Obstructive Pulmonary Disease (COPD): Yes - Neurological Other/Comment: Paraplegic / spinal tumor - HEENT Hx HEENT Disorder: No Hx Blind: Yes (left eye) - Renal Hx Renal Disorder: No - Endocrine/Metabolic Hx Diabetes Mellitus Type 2: Yes - Hematological/Oncological Hx Anemia: Yes - Integumentary Hx Dermatological Disorder: No - Musculoskeletal/Rheumatological Hx Falls: No - Gastrointestinal Other/Comment: Morbid obesity, incontinent - Genitourinary/Gynecological Hx Genitourinary Disorders: Yes Hx Urinary Tract Infection: Yes - Psychiatric Hx Psychophysiologic Disorder: No Hx Substance Use: No - Surgical History Other/Comment: laminectomy - Anesthesia Hx Anesthesia: Yes Hx Anesthesia Reactions: No Hx Malignant Hyperthermia: No Family/Social History - Physician Review Nursing Documentation Reviewed: Yes Family/Social History: Unknown Family HX Smoking Status: Former Smoker Hx Alcohol Use: No Hx Substance Use: No Allergies/Home Meds Allergies/Adverse Reactions: Allergies Penicillins Allergy (Verified 01/15/17 23:50) ANAPHYLAXIS Home Medications: Home Meds Medication Instructions Recorded Confirmed Famotidine [Pepcid] 20 mg PO BID 09/17/15 11/04/16 Levalbuterol HCl [Xopenex] 1.25 mg IH Q6 PRN 09/17/15 11/04/16 Aspirin [Aspirin Chewable] 81 mg PO DAILY 07/11/16 11/04/16 Review of Systems - Physician Review All systems were reviewed & negative as marked: Yes - Review of Systems Constitutional: Normal. absent: Fevers Eyes: Normal ENT: Normal Respiratory: Normal. absent: SOB, Cough Cardiovascular: Normal. absent: Chest Pain Gastrointestinal: Normal. absent: Abdominal Pain, Diarrhea, Nausea, Vomiting Genitourinary Male: Other (+pain at Montague site) Musculoskeletal: Back Pain (+right flank pain). absent: Neck Pain Skin: Normal. absent: Rash Neurological: Normal. absent: Headache, Dizziness Endocrine: Normal Hemo/Lymphatic: Normal Psychiatric: Normal Physical Exam Vital Signs Reviewed: Yes Vital Signs Temp Pulse Resp BP Pulse Ox 01/16/17 03:37 115 H 16 163/103 H 96 01/16/17 02:32 114 H 16 151/75 H 94 L 01/16/17 01:41 135 H 16 129/88 92 L 01/15/17 23:45 98.8 F 128 H 16 139/66 95 Temperature: Afebrile Blood Pressure: Normal Pulse: Regular Respiratory Rate: Normal Appearance: Positive for: Well-Appearing, Non-Toxic, Other (Obese, bed-ridden) Pain Distress: None Mental Status: Positive for: Alert and Oriented X 3 - Systems Exam Head: Present: Atraumatic, Normocephalic Conjunctiva: Present: Normal Mouth: Present: Moist Mucous Membranes Neck: Present: Normal Range of Motion Respiratory/Chest: Present: Clear to Auscultation, Good Air Exchange. No: Respiratory Distress, Accessory Muscle Use Cardiovascular: Present: Regular Rate and Rhythm, Normal S1, S2. No: Murmurs Abdomen: Present: Normal Bowel Sounds. No: Tenderness, Distention, Peritoneal Signs Genitourinary Male: Present: Other (Purulent discharge around Montague catheter site) Upper Extremity: Present: Normal Inspection. No: Cyanosis, Edema Lower Extremity: Present: Normal Inspection. No: Edema Neurological: Present: GCS=15, CN II-XII Intact, Speech Normal Skin: Present: Warm, Dry, Normal Color. No: Rashes Psychiatric: Present: Alert, Oriented x 3, Normal Insight, Normal Concentration Medical Decision Making ED Course and Treatment: 01/16/17 00:20 Impression: 56 year old male complaining of right flank pain since 12:00 and pain at montague site for 1 week. Differential Diagnosis included but are not limited to: sepsis vs. UTI vs. urosepsis Plan: -- EKG -- Chest X-ray -- Labs, VBG, blood cultures -- Urinalysis, urine cultures -- IV fluids -- Reassess and disposition Prior Visits: Notes and results from previous visits were reviewed. On 11/04/2016, pt was seen in the Emergency department for suprapubic/penile pain, fever, chills, and difficulty urinating. Pt was admitted to the hospital for further evaluation. Progress Notes: Montague catheter placed by without complications. Draining urine. 01/16/17 01:42 reviewed radiology, Chest X-ray shows no acute processes. 01/16/17 01:50 Pt tachycardic with WBC: 25.6 and lactate: 2.8. Code Sepsis called. 01/16/17 03:[address] Andrade, ribbon hand, who agrees to evaluate pt. 01/16/17 04:[address] Andrade, states pt can go to Telemetry. 01/16/17 04:[address] Frazier, who is aware and agrees with plan. Accepts pt in to her service. Pt will be admitted to Telemetry for sepsis. Requests Dr. Vigil on consult. - Critical Care Critical Care Minutes: 30 minutes - Lab Interpretations Lab Results: 01/16/17 01:10 01/16/17 01:10 Lab Results 01/16/17 01:30: Urine Color Yellow, Urine Appearance Cloudy, Urine pH 6.0, Ur Specific [place] 1.020, Urine Protein 100 H, Urine Glucose (UA) Negative, Urine Ketones Negative, Urine Blood Large H, Urine Nitrate Negative, Urine Bilirubin Negative, Urine Urobilinogen 0.2, Ur Leukocyte Esterase Large H, Urine RBC 0 - 2 , Urine WBC Tntc, Ur Epithelial Cells 0 - 2, Urine Bacteria Many 01/16/17 01:10: Sodium 134, Chloride 94 L, Potassium 4.9, Carbon Dioxide 28, Anion Gap 17, BUN 22 H, Creatinine 1.6 H, Est GFR ( Amer) 54, Est GFR ( Non-Af Amer) 45, Random Glucose 172 H, Calcium 9.6, Total Bilirubin 0.8, AST 31 , ALT 54, Alkaline Phosphatase 98, Total Protein 8.2, Albumin 4.1, Globulin 4.1 , Albumin/Globulin Ratio 1.0 L 01/16/17 01:10: pO2 27 L, VBG pH 7.38, VBG pCO2 54.0, VBG HCO3 31.9 H, VBG Total CO2 33.6 H, VBG O2 Sat (Calc) 61.4, VBG Base Excess 5.3 H, VBG Potassium 5.3 H, Sodium 135.0, Chloride 94.0 L, Glucose 181 H, Lactate 2.8 H, FiO2 21.0, Venous Blood Potassium 5.3 H 01/16/17 01:10: PT 44.8 H*, INR 4.15 H*, APTT 49.2 H 01/16/17 01:10: WBC 25.6 H* D, RBC 6.14 H, Hgb 18.2 H*, Hct 51.8, MCV 84.4, MCH 29.6, MCHC 35.1, RDW 13.8, Plt Count 237, MPV 10.2, Neutrophils % (Manual) 81 H , Band Neutrophils % 6 H, Lymphocytes % (Manual) 3 L, Monocytes % (Manual) 9 H, Eosinophils % (Manual) 1, Platelet Evaluation Normal I have reviewed the lab results: Yes - RAD Interpretation Radiology Orders: 01/16/17 00:56 CHEST PORTABLE [RAD] Stat Supervisor Power Reactor: ED Physician - EKG Interpretation Interpreted by ED Physician: Yes Type: 12 lead EKG - Medication Orders Current Medication Orders: Sodium Chloride (Sodium Chloride 0.9%) 1,000 mls @ 150 mls/hr IV .Q6H40M [facility] Last Admin: 01/16/17 03:46 Dose: 150 mls/hr Discontinued Medications Sodium Chloride 3,000 ml/ IV (SUPPLIES) 3,000 mls @ 9,688.74 mls/hr IV ONCE ONE PRN Reason: 60 ML/KG/HR Stop: 01/16/17 01:55 Last Admin: 01/16/17 02:02 Dose: 9,688.74 mls/hr Aztreonam (Azactam 1 Gm) 100 mls @ 100 mls/hr IVPB STAT STA PRN Reason: Protocol Stop: 01/16/17 02:56 Last Admin: 01/16/17 02:30 Dose: 100 mls/hr Vancomycin HCl (Vancomycin 1gm) 1 gm in 250 mls @ 167 mls/hr IVPB STAT STA PRN Reason: Protocol Stop: 01/16/17 03:30 Last Admin: 01/16/17 03:42 Dose: 167 mls/hr Sodium Chloride (Sodium Chloride 0.9%) 1,000 mls @ 999 mls/hr IV .Q1H1M STA Stop: 01/16/17 04:11 Morphine Sulfate (Morphine) 4 mg IVP STAT STA Stop: 01/16/17 01:37 Last Admin: 01/16/17 01:42 Dose: Morphine Sulfate (Morphine) Confirm Administered Dose 4 mg .ROUTE .STK-MED ONE Stop: 01/16/17 01:39 Last Admin: 01/16/17 01:40 Dose: 4 mg Ondansetron HCl (Zofran Inj) 4 mg IVP ONCE ONE Stop: 01/16/17 01:37 Last Admin: 01/16/17 01:39 Dose: 4 mg - Scribe Statement The provider has reviewed the documentation as recorded by the Francois Nogueira Provider Scribe Attestation: All medical record entries made by the Francois were at my direction and personally dictated by me. I have reviewed the chart and agree that the record accurately reflects my personal performance of the history, physical exam, medical decision making, and the department course for this patient. I have also personally directed, reviewed, and agree with the discharge instructions and disposition. Disposition/Present on Arrival - Present on Arrival Any Indicators Present on Arrival: No History of DVT/PE: No History of Uncontrolled Diabetes: Yes Urinary Catheter: Yes History of Decub. Ulcer: Yes History Surgical Site Infection Following: None - Disposition Have Diagnosis and Disposition been Completed?: Yes Diagnosis: Sepsis, UTI (urinary tract infection) Disposition: HOSPITALIZED Disposition Time: 04:15 Patient Plan: Admission Condition: STABLE Discharge Instructions (ExitCare): Sepsis (ED) Forms: [employer] ([place]izen [place])
[2017-01-16 01:28] LABS: VENOUS BLOOD GAS BASE EXCESS 5.3 mmol/L (0.0-2.0); VENOUS BLOOD GAS PO2 27 mm/Hg (30-55); VENOUS BLOOD PH 7.38 (7.32-7.43)
[2017-01-16 01:32] LABS: MEAN CELL VOLUME 84.4 fl (80.0-105.0); MEAN CORPUSCULAR HEMOGLOBIN 29.6 pg (25.0-35.0); MEAN CORPUSCULAR HGB CONC 35.1 g/dl (31.0-37.0); MEAN PLATELET VOLUME 10.2 fl (7.0-11.0); PLATELET COUNT 237 10^3/uL (120.0-450.0); RBC 6.14 10^6/uL (3.5-6.1); RED CELL DISTRIBUTION WIDTH 13.8 % (11.5-14.5)
[2017-01-16 01:35] LABS: ALBUMIN 4.1 g/dL (3.0-4.8); CALCIUM 9.6 mg/dL (8.4-10.5)
[2017-01-16] MEDS ORDERED: Morphine 4 mg/ml ISec IVP STA (01:36)
[2017-01-16] MEDS ORDERED: Morphine 4 mg/ml ISec ONE (01:38)
[2017-01-16] MEDS: Sodium Chloride 0.9% 1,000 ML IV SCH ×3 (01:41→16:14)
[2017-01-16 01:43] LABS: PARTIAL THROMBOPLASTIN TIME 49.2 Seconds (23.7-30.8); PROTHROMBIN TIME 44.8 Seconds (9.9-11.8)
[2017-01-16 01:46] LABS: URINE BILIRUBIN NEGATIVE (NEGATIVE); URINE BLOOD LARGE (NEGATIVE); URINE GLUCOSE (UA) NEGATIVE (NEGATIVE); URINE LEUKOCYTE ESTERASE LARGE Leu/uL (NEGATIVE); URINE NITRATE NEGATIVE (NEGATIVE); URINE PROTEIN 100 mg/dL (<30 mg/dL); URINE UROBILINOGEN 0.2 E.U./dL (<1 E.U./dL)
[2017-01-16 01:47] LABS: INR 4.15 (0.93-1.08)
[2017-01-16 01:48] LABS: WHITE BLOOD COUNT 25.6 10^3/ul (4.5-11.0)
[2017-01-16 01:49] LABS: HEMOGLOBIN 18.2 g/dL (14.0-18.0)
[2017-01-16 01:50] LABS: URINE APPEARANCE CLOUDY (CLEAR); URINE COLOR YELLOW (YELLOW)
[2017-01-16] MEDS ORDERED: Aztreonam 1 Gm in NS 100mL 100 ML IVPB STA (01:57)
[2017-01-16 02:01] LABS: BAND 6 % (0-2); EOSINOPHIL 1 % (0.0-3.0); LYMPHOCYTE 3 % (22.0-35.0); MONOCYTE 9 % (1.0-6.0); NEUTROPHIL 81 % (50.0-70.0); PLATELET ESTIMATE NORMAL (NORMAL)
[2017-01-16] MEDS ORDERED: Vancomycin 1gm in NS 250ml 1 GM/250 ML BAG IVPB STA (02:01)
[2017-01-16 02:05] LABS: URINE BACTERIA MANY (NEG); URINE EPITHELIAL CELLS 0 - 2 /hpf (0-5); URINE RBC 0 - 2 /hpf (0-2); URINE WBC TNTC /hpf (0-6)
[2017-01-16] MEDS ORDERED: Sodium Chloride 0.9% 2,000 ML IV STA (03:08)
[2017-01-16] MEDS ORDERED: Sodium Chloride 0.9% 1,000 ML IV STA (03:11)
--- NOTE | 2017-01-16 04:28 | CP.PCM.CON ---
<Lee Chaves - Last Filed: 01/16/17 04:10> History of Present Illness - History of Present Illness History of Present Illness: CC: Back pain and pain with urination HPI: Patient is a 56 year old male with past medical history of hypertension, diabetes mellitus, morbid obesity, COPD, CHF, Atrial fibrillation, chronic montague catheter placement and history of multiple episodes of urinary tract infections who presents to the [facility] from [facility] complaining of 2 day history of lower back pain and 2 week history of pain with urination. Patient reports chronic indwelling catheter for urinary retention that is managed by his urologist Dr. Ly. Patient reports last time his montague was changed was 6 weeks prior to admission. He reports daily upkeep from his aids at the [facility] facility. In the past two weeks he denies noticing any hematuria, cloudiness, or foul odor of the urine. He reports receiving only Tylenol for the pain with minimal relief. He denies fever, chills, nausea, vomiting. Associated symptoms include mid-epigastric tenderness and diaphoresis for the past 24-48 hours. He denies chest pain, shortness of breath, diarrhea, nausea, and vomiting. PMH: As stated in HPI PSH: Tumor removal of lumbar spine, Right knee surgery, Carpal tunnel surgery bilateral FMH: Non-contributory SocHx: Tobacco: denies, ETOH: Denies, Drugs: Denies Allergies: PCN Meds: See AUG PMD: Dr. Campbell Review of Systems - Constitutional Constitutional: Excessive Sweating. absent: Chills, Fever, Night Sweats - EENT Eyes: absent: Blurred Vision, Change in Vision, Spots in Vision Nose/Mouth/Throat: absent: Nasal Congestion, Nasal Discharge, Post Nasal Drip - Cardiovascular Cardiovascular: absent: Chest Pain, Dyspnea, Edema, Irregular Heart Rhythm - Respiratory Respiratory: absent: Cough, Dyspnea, Hemoptysis - Gastrointestinal Gastrointestinal: Abdominal Pain (mid epigastric ). absent: Dysphagia, Heartburn, Nausea, Vomiting - Genitourinary Genitourinary: Dysuria, Other (chronic indwelling montague catheter ). absent: Hematuria, Pyuria, Urinary Incontinence - Musculoskeletal Musculoskeletal: Back Pain, Limited Range of Motion - Integumentary Integumentary: As Per HPI - Neurological Neurological: absent: Abnormal Movements, Focal Weakness, Syncope, Weakness - Psychiatric Psychiatric: absent: Anxiety, Depression - Endocrine Endocrine: Excessive Sweating (24-48 hour history) Past Patient History - Infectious Disease Hx of Infectious Diseases: None - Past Medical History & Family History Past Medical History?: Yes - Past Social History Smoking Status: Former Smoker Alcohol: None Drugs: Denies - CARDIAC Hx Congestive Heart Failure: Yes Hx Hypertension: Yes - PULMONARY Hx Asthma: Yes Hx Chronic Obstructive Pulmonary Disease (COPD): Yes - NEUROLOGICAL Other/Comment: Paraplegic / spinal tumor - HEENT Hx HEENT Problems: No Hx Blind: Yes (left eye) - RENAL Hx Chronic Kidney Disease: No - ENDOCRINE/METABOLIC Hx Diabetes Mellitus Type 2: Yes - HEMATOLOGICAL/ONCOLOGICAL Hx Anemia: Yes - INTEGUMENTARY Hx Dermatological Problems: No - MUSCULOSKELETAL/RHEUMATOLOGICAL Hx Falls: No - GASTROINTESTINAL Other/Comment: Morbid obesity, incontinent - GENITOURINARY/GYNECOLOGICAL Hx Genitourinary Disorders: Yes Hx Urinary Tract Infection: Yes - PSYCHIATRIC Hx Psychophysiologic Disorder: No Hx Substance Use: No - SURGICAL HISTORY Other/Comment: laminectomy - ANESTHESIA Hx Anesthesia: Yes Hx Anesthesia Reactions: No Hx Malignant Hyperthermia: No Meds Allergies/Adverse Reactions: Allergies Allergy/AdvReac Type Severity Reaction Status Date / Time Penicillins Allergy ANAPHYLAXIS Verified 01/15/17 23:50 - Medications Medications: Current Medications Sodium Chloride (Sodium Chloride 0.9%) 1,000 mls @ 150 mls/hr IV .Q6H40M [facility] Last Admin: 01/16/17 03:46 Dose: 150 mls/hr Sodium Chloride (Sodium Chloride 0.9%) 1,000 mls @ 999 mls/hr IV .Q1H1M STA Stop: 01/16/17 04:11 Physical Exam - Head Exam Head Exam: ATRAUMATIC, NORMAL INSPECTION, NORMOCEPHALIC - Eye Exam Eye Exam: EOMI, PERRL Additional comments: left eye deviation - ENT Exam ENT Exam: Mucous Membranes Dry - Neck Exam Neck exam: Positive for: Full Rom. Negative for: Lymphadenopathy - Respiratory Exam Respiratory Exam: Clear to Auscultation Bilateral, NORMAL BREATHING PATTERN - Cardiovascular Exam Cardiovascular Exam: Tachycardia, REGULAR RHYTHM, +S1, +S2 - GI/Abdominal Exam GI & Abdominal Exam: Normal Bowel Sounds, Soft, Tenderness (mid-epigastric) Additional comments: protuberant, morbid obesity making for challenging exam - Exam Exam: absent: Scrotal Swelling, Uretheral Discharge External exam: absent: Erythema Additional comments: indwelling montague catheter - Extremities Exam Additional comments: lower extremities noted to be primarily dorsiflexed with outward bow legging b/ l - Back Exam Back exam: paraspinal tenderness, tenderness (lumbar region) - Neurological Exam Neurological exam: Alert, CN II-XII Intact, Oriented x3, Reflexes Normal Additional comments: moving all four extremities, resting tremor of left upper extremity - Psychiatric Exam Psychiatric exam: Normal Affect, Normal Mood - Skin Skin Exam: Dry, Intact, Normal Color, Warm Additional comments: hemostasis noted on anterior lower extremities bilateral Results - Vital Signs Recent Vital Signs: Last Vital Signs Temp 98.8 F 01/15/17 23:45 Pulse 115 H 01/16/17 03:37 Resp 16 01/16/17 03:37 BP 163/103 H 01/16/17 03:37 Pulse Ox 96 01/16/17 03:37 - Labs Result Diagrams: 01/16/17 01:10 01/16/17 01:10 Labs: Laboratory Results - last 24 hr 01/16/17 01/16/17 01/16/17 01:10 01:10 01:10 WBC 25.6 H* D RBC 6.14 H Hgb 18.2 H* Hct 51.8 MCV 84.4 MCH 29.6 MCHC 35.1 RDW 13.8 Plt Count 237 MPV 10.2 Neutrophils % (Manual) 81 H Band Neutrophils % 6 H Lymphocytes % (Manual) 3 L Monocytes % (Manual) 9 H Eosinophils % (Manual) 1 Platelet Evaluation Normal PT 44.8 H* INR 4.15 H* APTT 49.2 H pO2 27 L VBG pH 7.38 VBG pCO2 54.0 VBG HCO3 31.9 H VBG Total CO2 33.6 H VBG O2 Sat (Calc) 61.4 VBG Base Excess 5.3 H VBG Potassium 5.3 H Sodium 135.0 Chloride 94.0 L Glucose 181 H Lactate 2.8 H FiO2 21.0 Potassium Carbon Dioxide Anion Gap BUN Creatinine Est GFR ( Amer) Est GFR (Non-Af Amer) Random Glucose Calcium Total Bilirubin AST ALT Alkaline Phosphatase Total Protein Albumin Globulin Albumin/Globulin Ratio Venous Blood Potassium 5.3 H Urine Color Urine Appearance Urine pH Ur Specific [place] Urine Protein Urine Glucose (UA) Urine Ketones Urine Blood Urine Nitrate Urine Bilirubin Urine Urobilinogen Ur Leukocyte Esterase Urine RBC Urine WBC Ur Epithelial Cells Urine Bacteria 01/16/17 01/16/17 01:10 01:30 WBC RBC Hgb Hct MCV MCH MCHC RDW Plt Count MPV Neutrophils % (Manual) Band Neutrophils % Lymphocytes % (Manual) Monocytes % (Manual) Eosinophils % (Manual) Platelet Evaluation PT INR APTT pO2 VBG pH VBG pCO2 VBG HCO3 VBG Total CO2 VBG O2 Sat (Calc) VBG Base Excess VBG Potassium Sodium 134 Chloride 94 L Glucose Lactate FiO2 Potassium 4.9 Carbon Dioxide 28 Anion Gap 17 BUN 22 H Creatinine 1.6 H Est GFR ( Amer) 54 Est GFR (Non-Af Amer) 45 Random Glucose 172 H Calcium 9.6 Total Bilirubin 0.8 AST 31 ALT 54 Alkaline Phosphatase 98 Total Protein 8.2 Albumin 4.1 Globulin 4.1 Albumin/Globulin Ratio 1.0 L Venous Blood Potassium Urine Color Yellow Urine Appearance Cloudy Urine pH 6.0 Ur Specific [place] 1.020 Urine Protein 100 H Urine Glucose (UA) Negative Urine Ketones Negative Urine Blood Large H Urine Nitrate Negative Urine Bilirubin Negative Urine Urobilinogen 0.2 Ur Leukocyte Esterase Large H Urine RBC 0 - 2 Urine WBC Tntc Ur Epithelial Cells 0 - 2 Urine Bacteria Many Assessment & Plan - Assessment and Plan (Free Text) Assessment: Mr. Marcus Valdovinos is a 56 year old male with past medical history of morbid obesity, HTN, DM, COPD, CHF, Afib, hx of back tumor, chronic indwelling montague catheter and history of multiple urinary tract infections who presents to emergency department from [facility] complaining of 1 day history of diaphoresis and 2 week history of dysuria. The patient was evaluated in ED and found to have acute cystitis with UA showing large leukocyte esterase, WBC of 25.6, Lactate of 2.8, Cr of 1.6, hypertensive and tachycardic. A code sepsis was called and patient was evaluated by ICU. The patient was found to be hemodynamically stable and will be admitted to the general medical floor of the hospital for treatment of acute cystitis with sepsis. - Date & Time Date: 01/16/17 Time: 04:00 <Vipin Andrade Q - Last Filed: 01/16/17 05:51> Meds - Medications Medications: Current Medications Sodium Chloride (Sodium Chloride 0.9%) 1,000 mls @ 150 mls/hr IV .Q6H40M [facility] Last Admin: 01/16/17 03:46 Dose: 150 mls/hr Results - Vital Signs Recent Vital Signs: Last Vital Signs Temp 98.8 F 01/15/17 23:45 Pulse 113 H 01/16/17 05:31 Resp 16 01/16/17 05:31 BP 148/81 01/16/17 05:31 Pulse Ox 97 01/16/17 05:31 - Labs Result Diagrams: 01/16/17 01:10 01/16/17 01:10 Labs: Laboratory Results - last 24 hr 01/16/17 04:45 pO2 224 H VBG pH 7.41 VBG pCO2 36.0 L VBG HCO3 22.8 VBG Total CO2 23.9 VBG O2 Sat (Calc) 99.6 H VBG Base Excess -1.4 L VBG Potassium 5.0 Sodium 135.0 Chloride 101.0 Glucose 180 H Lactate 3.6 H FiO2 21.0 Venous Blood Potassium 5.0 Attending/Attestation - Attestation I have personally seen and examined this patient.: Yes I have fully participated in the care of the patient.: Yes I have reviewed all pertinent clinical information: Yes Notes (Text): 01/16/17 05:47 I agree with the above note and exam by the resident with the addition/ exception of the followin56 y/o male with multiple comorbidities as listed above was evaluated in the ED by myself as well as the residents after a code sepsis was called. Patient presented from the snf with back pain, diaphoresis and tachycardia; appears likely to be acute on chronic cystitis with urosepsis. Medical record was reviewed and patient appears to have been admitted in the past for similar illness as well. Initially he only received 2L of IVF in the ED, I asked to give him an additional 2 liters and continue on IV maintenance fluid. Patient' s SBP is well, in fact hypertensive at times; still with sinus tachycardia, likely some level of dehydration along with pain at this time. The patient does not require aggressive ICU level care at this time and can be admitted to the telemetry floor. In the event that the patient's condition worsens or changes, he can be evaluated again for placement in the ICU.
[2017-01-16 05:11] LABS: VENOUS BLOOD GAS BASE EXCESS -1.4 mmol/L (0.0-2.0); VENOUS BLOOD GAS PO2 224 mm/Hg (30-55); VENOUS BLOOD PH 7.41 (7.32-7.43)
--- NOTE | 2017-01-16 08:01 | RAD ---
HISTORY: Sepsis Patient portable study 01:23. COMPARISON: 11/04/2016. FINDINGS: LUNGS: No active pulmonary disease. PLEURA: No significant pleural effusion identified, no pneumothorax apparent. CARDIOVASCULAR: Cardiomegaly. No evidence of acute, significant cardiovascular disease. OSSEOUS STRUCTURES: No significant abnormalities. VISUALIZED UPPER ABDOMEN: Normal. OTHER FINDINGS: None. IMPRESSION: No active disease. No significant interval change compared to the prior examination(s).
[2017-01-16] MEDS: HYDROmorphone 0.5 mg/0.5 ml ISec IVP PRN ×2 (10:16→21:21)
[2017-01-16] MEDS: Insulin Reg-LOW-Coverage SC SCH ×3 (12:51→21:09)
[2017-01-16] MEDS: Aztreonam 1 Gm in NS 100mL 100 ML IVPB SCH ×2 (13:15→21:20)
[2017-01-16] MEDS: Albuterol-Ipratrop 3 mg / 0.5 (3 ml) UD IH SCH ×2 (14:16→19:58)
--- NOTE | 2017-01-16 14:34 | CP.PCM.CON ---
History of Present Illness - History of Present Illness History of Present Illness: 56 year old male with PMH of HTN, DM, morbid obesity with BMI 53, chronic montague catheter use typically changed every month, chronic atrial fibrillation, S/P laminectomy in 2014 came in to [facility] because of subjective fever and chills associated with pain on urination and suprapubic pain since 2 days ago. The patient was also complaining of some low back pain which is better today. He denies nausea or vomiting, no chest pain, no SOB, no headache or dizziness, no blurring of vision, no diarrhea, no cough or colds. As per patient, the last time his Montague was changed was about 6 weeks ago. He noted his urine to be cloudy. Infectious Diseases consult is requested to further evaluate and manage. Review of Systems - Review of Systems All systems: reviewed and no additional remarkable complaints except (as per HPI ) Past Patient History - Infectious Disease Hx of Infectious Diseases: None - Past Medical History & Family History Past Medical History?: Yes - Past Social History Smoking Status: Former Smoker Alcohol: None Drugs: Denies - CARDIAC Hx Congestive Heart Failure: Yes Hx Hypertension: Yes - PULMONARY Hx Asthma: Yes Hx Chronic Obstructive Pulmonary Disease (COPD): Yes - NEUROLOGICAL Other/Comment: Paraplegic / spinal tumor - HEENT Hx HEENT Problems: No Hx Blind: Yes (left eye) - RENAL Hx Chronic Kidney Disease: No - ENDOCRINE/METABOLIC Hx Diabetes Mellitus Type 2: Yes - HEMATOLOGICAL/ONCOLOGICAL Hx Anemia: Yes - INTEGUMENTARY Hx Dermatological Problems: No - MUSCULOSKELETAL/RHEUMATOLOGICAL Hx Falls: No - GASTROINTESTINAL Other/Comment: Morbid obesity, incontinent - GENITOURINARY/GYNECOLOGICAL Hx Genitourinary Disorders: Yes Hx Urinary Tract Infection: Yes - PSYCHIATRIC Hx Psychophysiologic Disorder: No Hx Substance Use: No - SURGICAL HISTORY Other/Comment: laminectomy - ANESTHESIA Hx Anesthesia: Yes Hx Anesthesia Reactions: No Hx Malignant Hyperthermia: No Meds Allergies/Adverse Reactions: Allergies Allergy/AdvReac Type Severity Reaction Status Date / Time Penicillins Allergy ANAPHYLAXIS Verified 01/15/17 23:50 - Medications Medications: Current Medications Sodium Chloride (Sodium Chloride 0.9%) 1,000 mls @ 150 mls/hr IV .Q6H40M [facility] Last Admin: 01/16/17 03:46 Dose: 150 mls/hr Physical Exam - Constitutional Appears: Non-toxic, No Acute Distress - Head Exam Head Exam: NORMAL INSPECTION - ENT Exam ENT Exam: Mucous Membranes Moist - Neck Exam Neck exam: Negative for: Lymphadenopathy, Meningismus - Respiratory Exam Respiratory Exam: Decreased Breath Sounds - Cardiovascular Exam Cardiovascular Exam: +S1, +S2 - GI/Abdominal Exam GI & Abdominal Exam: Soft, Tenderness (some tenderness in the suprapubic area, no rebound tenderness, no rigidity, no guarding) Results - Vital Signs Recent Vital Signs: Last Vital Signs Temp 98.8 F 01/15/17 23:45 Pulse 113 H 01/16/17 05:31 Resp 16 01/16/17 05:31 BP 148/81 01/16/17 05:31 Pulse Ox 97 01/16/17 05:31 - Labs Result Diagrams: 01/16/17 01:10 01/16/17 01:10 Labs: Laboratory Results - last 24 hr 01/16/17 04:45 pO2 224 H VBG pH 7.41 VBG pCO2 36.0 L VBG HCO3 22.8 VBG Total CO2 23.9 VBG O2 Sat (Calc) 99.6 H VBG Base Excess -1.4 L VBG Potassium 5.0 Sodium 135.0 Chloride 101.0 Glucose 180 H Lactate 3.6 H FiO2 21.0 Venous Blood Potassium 5.0 Assessment & Plan - Assessment and Plan (Free Text) Plan: Assessment Severe sepsis with acute renal failure due to probable complicated UTI associated with indwelling montague catheter HTN DM morbid obesity with BMI 53 chronic montague catheter use typically changed every month chronic atrial fibrillation S/P laminectomy in 2014 Plan Started patient on Azactam pending blood and urine cx; follow up renal ultrasound Montague has been changed in the ED Trend WBC count and monitor for fever
--- NOTE | 2017-01-16 16:00 | CARD ---
APPROVED REPORT EKG Measurement Heart [id number] <Conclusion> Sinus tachycardia Possible Left atrial enlargement Borderline ECG
--- NOTE | 2017-01-16 19:09 | US ---
PROCEDURE: Ultrasound of the Kidneys HISTORY: rule out hydronephrosis COMPARISON: Ultrasound abdomen 07/31/2015. TECHNIQUE: Sonogram of the kidneys. FINDINGS: RIGHT KIDNEY: Measures: 14.8 cm. Unremarkable in echogenicity. No shadowing renal stone, cyst, or hydronephrosis is identified. LEFT KIDNEY: Measures: 13.5 cm. Unremarkable in echogenicity. No shadowing renal stone, cyst, or hydronephrosis is identified. OTHER FINDINGS: None IMPRESSION: Unremarkable renal sonogram.
--- NOTE | 2017-01-16 23:10 | CP.PCM.HP ---
History of Present Illness - History of Present Illness History of Present Illness: 01/16/17 Marcus Valdovinos is a 55 year old male, whose past medical history includes hypertension, diabetes, morbid obesity, urosepsis multiple times, chronic Montague , COPD, CHF, atrial fibrillation, and quadriplegia due to CVA, who [facility]. Patient states he began experiencing gradually worsening right flank pain since 12:00 yesterday. Patient also complaining of pain at Montague site for the past week. Patient denies any chest pain, shortness of breath, nausea, vomiting, diarrhea, neck pain, headache, dizziness, or any other complaints. Present on Admission - Present on Admission Any Indicators Present on Admission: No Urinary Catheter: Yes Review of Systems - Constitutional Constitutional: As Per HPI - EENT Eyes: As Per HPI Ears: As Per HPI Nose/Mouth/Throat: As Per HPI - Respiratory Respiratory: As Per HPI - Gastrointestinal Gastrointestinal: As Per HPI - Genitourinary Genitourinary: Difficulty Urinating, Dysuria, Freq UTI Additional comments: penectomy Past Patient History - Infectious Disease Hx of Infectious Diseases: None - Past Medical History & Family History Past Medical History?: Yes - Past Social History Smoking Status: Former Smoker Alcohol: None Drugs: Denies - CARDIAC Hx Congestive Heart Failure: Yes Hx Hypertension: Yes - PULMONARY Hx Asthma: Yes Hx Chronic Obstructive Pulmonary Disease (COPD): Yes - NEUROLOGICAL Other/Comment: Paraplegic / spinal tumor - HEENT Hx HEENT Problems: No Hx Blind: Yes (left eye) - RENAL Hx Chronic Kidney Disease: No - ENDOCRINE/METABOLIC Hx Diabetes Mellitus Type 2: Yes - HEMATOLOGICAL/ONCOLOGICAL Hx Anemia: Yes - INTEGUMENTARY Hx Dermatological Problems: No - MUSCULOSKELETAL/RHEUMATOLOGICAL Hx Falls: No - GASTROINTESTINAL Other/Comment: Morbid obesity, incontinent - GENITOURINARY/GYNECOLOGICAL Hx Genitourinary Disorders: Yes Hx Urinary Tract Infection: Yes - PSYCHIATRIC Hx Psychophysiologic Disorder: No Hx Substance Use: No - SURGICAL HISTORY Other/Comment: laminectomy - ANESTHESIA Hx Anesthesia: Yes Hx Anesthesia Reactions: No Hx Malignant Hyperthermia: No Meds Allergies/Adverse Reactions: Allergies Allergy/AdvReac Type Severity Reaction Status Date / Time Penicillins Allergy ANAPHYLAXIS Verified 01/15/17 23:50 Physical Exam - Constitutional Appears: Well - Head Exam Head Exam: ATRAUMATIC, NORMAL INSPECTION, NORMOCEPHALIC - Eye Exam Eye Exam: EOMI, Normal appearance, PERRL Pupil Exam: NORMAL ACCOMODATION, PERRL - ENT Exam ENT Exam: Mucous Membranes Moist, Normal Exam - Neck Exam Neck exam: Positive for: Normal Inspection - Respiratory Exam Respiratory Exam: Clear to Auscultation Bilateral, NORMAL BREATHING PATTERN - Cardiovascular Exam Cardiovascular Exam: REGULAR RHYTHM - GI/Abdominal Exam GI & Abdominal Exam: Normal Bowel Sounds, Soft. absent: Tenderness - Rectal Exam Rectal Exam: NORMAL INSPECTION - Exam Additional comments: penectomy - Extremities Exam Extremities exam: Positive for: normal inspection - Back Exam Back exam: NORMAL INSPECTION - Neurological Exam Neurological exam: Alert, CN II-XII Intact, Normal Gait, Oriented x3, Reflexes Normal - Psychiatric Exam Psychiatric exam: Normal Affect, Normal Mood - Skin Skin Exam: Dry, Intact, Normal Color, Warm Results - Vital Signs Recent Vital Signs: Last Vital Signs Temp 99 F 01/16/17 16:53 Pulse 89 01/16/17 18:00 Resp 19 01/16/17 16:53 BP 123/78 01/16/17 16:53 Pulse Ox 96 01/16/17 07:00 - Labs Result Diagrams: 01/16/17 01:10 01/16/17 01:10 Labs: Laboratory Results - last 24 hr 01/16/17 01/16/17 01/16/17 04:45 07:33 10:53 pO2 224 H VBG pH 7.41 VBG pCO2 36.0 L VBG HCO3 22.8 VBG Total CO2 23.9 VBG O2 Sat (Calc) 99.6 H VBG Base Excess -1.4 L VBG Potassium 5.0 Sodium 135.0 Chloride 101.0 Glucose 180 H Lactate 3.6 H FiO2 21.0 POC Glucose (mg/dL) 190 H 154 H Venous Blood Potassium 5.0 01/16/17 01/16/17 11:08 15:59 pO2 VBG pH VBG pCO2 VBG HCO3 VBG Total CO2 VBG O2 Sat (Calc) VBG Base Excess VBG Potassium Sodium Chloride Glucose Lactate FiO2 POC Glucose (mg/dL) 153 H 116 H Venous Blood Potassium Assessment & Plan - Assessment and Plan (Free Text) Assessment: 56 year old male with PMH of HTN, DM, morbid obesity with BMI 53, chronic montague catheter use typically changed every month, chronic atrial fibrillation, S/P laminectomy in 2014 came in to [facility] because of subjective fever and chills associated with pain on urination and suprapubic pain since 2 days ago. The patient was also complaining of some low back pain which is better today. He denies nausea or vomiting, no chest pain, no SOB, no headache or dizziness, no blurring of vision, no diarrhea, no cough or colds. As per patient, the last time his Montague was changed was about 6 weeks ago. He noted his urine to be cloudy. Infectious Diseases consult is requested to further evaluate and manage. Plan: Assessment Severe sepsis with acute renal failure due to probable complicated UTI associated with indwelling montague catheter HTN DM morbid obesity with BMI 53 chronic montague catheter use typically changed every month chronic atrial fibrillation S/P laminectomy in 2014 Plan Started patient on Azactam pending blood and urine cx; follow up renal ultrasound. that is unremarkable Montague has been changed in the ED Trend WBC count and monitor for fever
[2017-01-17] MEDS: Albuterol-Ipratrop 3 mg / 0.5 (3 ml) UD IH SCH ×4 (02:00→20:30)
[2017-01-17] MEDS: Aztreonam 1 Gm in NS 100mL 100 ML IVPB SCH ×3 (05:22→21:46)
[2017-01-17] MEDS: Sodium Chloride 0.9% 1,000 ML IV SCH (05:29)
--- NOTE | 2017-01-17 05:50 | CON ---
DATE: 01/16/2017 REFERRING PHYSICIAN: Dr. Frazier. REASON FOR CONSULTATION: Obesity, sleep apnea syndrome. HISTORY OF PRESENT ILLNESS: This is a 56 years old obese male who was basically bedridden with history of quadriplegia, hypertension, diabetes, morbid obesity, chronic lung disease, atrial fibrillation, indwelling Ceron catheter, recurrent UTI's comes in with increased back pain, dysuria. Last time, Ceron was changed about 6 weeks or so. Has short of breath with minimal exertion, does not have CPAP at assisted. No fever or chills. No hemoptysis or emesis. No hematuria. No diarrhea reported. PAST MEDICAL HISTORY: As per history of present illness. SOCIAL HISTORY: No history of smoking or alcohol use. FAMILY HISTORY: No significant cardiopulmonary disease reported. ALLERGIES: ALLERGIC TO PENICILLIN. MEDICATIONS: He is on Azactam 1 g IV q. 8 hours, Dilaudid 0.5 mg q. 4 hours p.r.n., DuoNeb q. 3 hours p.r.n., insulin coverage, Pepcid 40 mg daily and IV fluid normal saline 150 mL per hour. REVIEW OF SYSTEMS: No headache, no rhinitis. No cough or short of breath with exertion. No chest pain. Admits to have snoring, daytime sleepy and tired. Has a back pain, some pelvic area discomfort, trace leg swelling. PHYSICAL EXAMINATION: GENERAL: Lying in the bed. No acute distress. VITAL SIGNS: Temperature is 100, heart rate is 80, respiratory rate is 18, blood pressure 118/68 and pulse oximetry 96% on nasal cannula. HEENT: Moist mucous membrane. Crowded airway. NECK: Short and thick neck. LUNGS: Has fair airflow with few rhonchi. HEART: S1 and S2. ABDOMEN: Soft and nontender. No organomegaly. EXTREMITIES: Has a trace edema. NEUROLOGIC: Awake, alert and follows simple commands. LABORATORY DATA: Shows hemoglobin 18.2, hematocrit 51.8, WBC 25,000 and platelet count is 237. INR 4.15 and PTT is 49. Blood gases which is a VBG shows pH 7.41, pCO2 of 36, O2 of 224 that is on supplemental oxygen. Sodium 134, potassium 4.9, chloride 94, bicarbonate 28, BUN 22, creatinine 1.6, glucose 172, calcium 9.6, AST 31, ALT 54, alk phos is 98 and albumin is 4.1. Urinalysis shows WBCs too numerous to count, RBC 0 to 2. Chest x-ray shows no infiltrate or effusion reported. IMPRESSION AND PLAN: Recurrent urinary tract infection has indwelling catheter, quadriplegic, sleep apnea syndrome, diabetes, morbid obesity, chronic lung disease, bedridden. The patient has penicillin allergy, started on Azactam. Pulmonary point view doing okay. We will place her on continuous positive airway pressure 10 cm with 30% oxygen while sleeping. We will speak to Dr. Frazier if we able to get continuous positive airway pressure for him while he is in assisted. Thank you and we will follow with you. Yosef Dunbar MD
[2017-01-17 10:22] LABS: INR 2.3 (0.93-1.08); PROTHROMBIN TIME 24.8 Seconds (9.9-11.8)
[2017-01-17 10:23] LABS: ALT/SGPT 35 U/L (7-56); AST/SGOT 14 U/L (15-59); BLOOD UREA NITROGEN 18 mg/dL (7-21); CALCIUM 8.2 mg/dL (8.4-10.5); GFR AFRICAN-AMERICAN > 60; GFR NON-AFRICAN AMERICAN > 60
[2017-01-17] MEDS: Insulin Reg-LOW-Coverage SC SCH ×4 (11:53→21:42)
[2017-01-17 12:37] LABS: BASO # 0.01 K/mm3 (0.0-2.0); BASO % 0.1 % (0.0-3.0); EOS # 0.2 (0.0-0.7); EOS % 1.5 % (1.5-5.0); GRAN # 10.17 (1.4-6.5); GRAN % 82.6 % (50.0-68.0); HEMOGLOBIN 13.7 g/dL (14.0-18.0); LYMPH # 1.1 (1.2-3.4); LYMPH % 9.3 % (22.0-35.0); MEAN CELL VOLUME 88.7 fl (80.0-105.0); MEAN CORPUSCULAR HEMOGLOBIN 28.7 pg (25.0-35.0); MEAN CORPUSCULAR HGB CONC 32.4 g/dl (31.0-37.0); MEAN PLATELET VOLUME 9.7 fl (7.0-11.0); MONO # 0.8 (0.1-0.6); MONO % 6.5 % (1.0-6.0); PLATELET COUNT 170 10^3/uL (120.0-450.0); RBC 4.77 10^6/uL (3.5-6.1); RED CELL DISTRIBUTION WIDTH 14.3 % (11.5-14.5); WHITE BLOOD COUNT 12.3 10^3/ul (4.5-11.0)
[2017-01-17] MEDS: HYDROmorphone 0.5 mg/0.5 ml ISec IVP PRN ×2 (12:46→22:40)
--- NOTE | 2017-01-17 15:36 | CP.PCM.PN ---
Subjective - Date & Time of Evaluation Date of Evaluation: 01/17/17 Time of Evaluation: 10:30 - Subjective Subjective: Patient is feeling a little better, no fevers overnight (low grade temperatures but not outright fever). Objective - Vital Signs/Intake and Output Vital Signs (last 24 hours): Temp Pulse Resp BP Pulse Ox 98.7 F 90 22 135/76 98 01/17/17 06:00 01/17/17 06:00 01/17/17 00:01 01/17/17 06:00 01/17/17 06:00 Intake and Output: 01/17/17 01/17/17 06:59 18:59 Intake Total 2040 Output Total 1400 Balance 640 - Medications Medications: Current Medications Albuterol/Ipratropium (Duoneb 3 Mg/0.5 Mg (3 Ml) Ud) 3 ml IH [id number] GREG Last Admin: 01/17/17 07:55 Dose: 3 ml Famotidine (Pepcid) 40 mg PO HS GREG Last Admin: 01/16/17 21:20 Dose: 40 mg Hydromorphone HCl (Dilaudid) 0.5 mg IVP Q4H PRN PRN Reason: Pain, Mild (1-3) Last Admin: 01/16/17 21:21 Dose: 0.5 mg Sodium Chloride (Sodium Chloride 0.9%) 1,000 mls @ 150 mls/hr IV .Q6H40M GREG Last Admin: 01/17/17 05:29 Dose: 150 mls/hr Aztreonam (Azactam 1 Gm) 100 mls @ 100 mls/hr IVPB Q8 GREG PRN Reason: Protocol Stop: 01/23/17 14:01 Last Admin: 01/17/17 05:22 Dose: 100 mls/hr Insulin Human Regular (Humulin R Low) 0 units SC ACHS GREG PRN Reason: Protocol Last Admin: 01/16/17 21:09 Dose: Not Given - Labs Labs: PT 44.8 Seconds (9.9-11.8) H* 01/16/17 01:10 INR 4.15 (0.93-1.08) H* 01/16/17 01:10 APTT 49.2 Seconds (23.7-30.8) H 01/16/17 01:10 - Constitutional Appears: Non-toxic, No Acute Distress - Head Exam Head Exam: NORMAL INSPECTION - Respiratory Exam Respiratory Exam: Decreased Breath Sounds - Cardiovascular Exam Cardiovascular Exam: +S1, +S2 - GI/Abdominal Exam GI & Abdominal Exam: Soft. absent: Tenderness Assessment and Plan - Assessment and Plan (Free Text) Plan: Assessment Severe sepsis with acute renal failure due to probable complicated UTI associated with indwelling montague catheter, growing gram negative bacilli HTN DM morbid obesity with BMI 53 chronic montague catheter use typically changed every month chronic atrial fibrillation S/P laminectomy in 2014 Plan continue Azactam day 2 pending identification and sensitvities of the gram negative bacilli in the urine cx; renal ultrasound does not show hydronephrosis Montague has been changed in the ED continue to trend WBC count and monitor for fever
[2017-01-17] MEDS ORDERED: Levalbuterol 1.25 MG/3 ML Inhal Soln UD IH PRN (22:59)
--- NOTE | 2017-01-17 22:59 | CP.PCM.PN ---
Subjective - Date & Time of Evaluation Date of Evaluation: 01/17/17 Time of Evaluation: 09:00 - Subjective Subjective: Patient is feeling a little better, no fevers overnight (low grade temperatures but not outright fever).c/o feet pain . no n.v.d . no che . dizzynaess , no chest pain or sob Objective - Vital Signs/Intake and Output Vital Signs (last 24 hours): Temp Pulse Resp BP Pulse Ox 97.8 F 93 H 20 142/76 98 01/17/17 17:32 01/17/17 18:00 01/17/17 17:32 01/17/17 17:32 01/17/17 06:00 Intake and Output: 01/17/17 01/18/17 18:59 06:59 Intake Total 480 360 Output Total 900 700 Balance -420 -340 - Medications Medications: Current Medications Albuterol/Ipratropium (Duoneb 3 Mg/0.5 Mg (3 Ml) Ud) 3 ml IH [id number] GREG Last Admin: 01/17/17 20:30 Dose: 3 ml Famotidine (Pepcid) 40 mg PO HS GREG Last Admin: 01/17/17 21:46 Dose: 40 mg Hydromorphone HCl (Dilaudid) 0.5 mg IVP Q4H PRN PRN Reason: Pain, Mild (1-3) Last Admin: 01/17/17 22:40 Dose: 0.5 mg Sodium Chloride (Sodium Chloride 0.9%) 1,000 mls @ 150 mls/hr IV .Q6H40M GREG Last Admin: 01/17/17 05:29 Dose: 150 mls/hr Aztreonam (Azactam 1 Gm) 100 mls @ 100 mls/hr IVPB Q8 GREG PRN Reason: Protocol Stop: 01/23/17 14:01 Last Admin: 01/17/17 21:46 Dose: 100 mls/hr Insulin Human Regular (Humulin R Low) 0 units SC ACHS GREG PRN Reason: Protocol Last Admin: 01/17/17 21:42 Dose: Not Given - Labs Labs: 01/17/17 12:29 01/17/17 08:46 PT 24.8 Seconds (9.9-11.8) H 01/17/17 10:00 INR 2.30 (0.93-1.08) H 01/17/17 10:00 APTT 49.2 Seconds (23.7-30.8) H 01/16/17 01:10 - Constitutional Appears: Well - Head Exam Head Exam: ATRAUMATIC, NORMAL INSPECTION, NORMOCEPHALIC - Eye Exam Eye Exam: EOMI, Normal appearance, PERRL Pupil Exam: NORMAL ACCOMODATION, PERRL - ENT Exam ENT Exam: Mucous Membranes Moist, Normal Exam - Neck Exam Neck Exam: Full ROM, Normal Inspection. absent: Lymphadenopathy - Respiratory Exam Respiratory Exam: Decreased Breath Sounds, Prolonged Expiratory Phase, Wheezes - Cardiovascular Exam Cardiovascular Exam: REGULAR RHYTHM, +S1, +S2. absent: Murmur - GI/Abdominal Exam GI & Abdominal Exam: Soft, Normal Bowel Sounds. absent: Tenderness - Rectal Exam Rectal Exam: NORMAL INSPECTION - Exam Exam: Circumcision, NORMAL INSPECTION External exam: NORMAL EXTERNAL EXAM Speculum exam: NORMAL SPECULUM EXAM Bimanual exam: NORMAL BIMANUAL EXAM - Extremities Exam Extremities Exam: Full ROM, Normal Capillary Refill, Normal Inspection. absent : Joint Swelling, Pedal Edema - Back Exam Back Exam: NORMAL INSPECTION - Neurological Exam Neurological Exam: Alert, Awake, CN II-XII Intact, Normal Gait, Oriented x3 - Psychiatric Exam Psychiatric exam: Normal Affect, Normal Mood - Skin Skin Exam: Dry, Intact, Normal Color, Warm Assessment and Plan - Assessment and Plan (Free Text) Assessment: Severe sepsis with acute renal failure due to probable complicated UTI associated with indwelling montague catheter, growing gram negative bacilli HTN DM morbid obesity with BMI 53 chronic montague catheter use typically changed every month chronic atrial fibrillation S/P laminectomy in 2014 Plan continue Azactam day 2 pending identification and sensitvities of the gram negative bacilli in the urine cx; renal ultrasound does not show hydronephrosis Montague has been changed in the ED continue to trend WBC count and monitor for fever podietry consultcalled
[2017-01-18] MEDS: Sodium Chloride 0.9% 1,000 ML IV SCH ×2 (01:42→21:39)
--- NOTE | 2017-01-18 01:52 | PN ---
DATE: 01/17/2017 PULMONARY PROGRESS NOTE REFERRING PHYSICIAN: Dr. Frazier. SUBJECTIVE: He is lying in the bed, head at 45 degrees. Night was unremarkable, tolerated the CPAP well. No headache, no rhinitis, no nausea, no vomiting, no abdominal pain and no dysuria. Has a Ceron catheter. OBJECTIVE GENERAL: No acute distress. VITAL SIGNS: Temp is 98, heart rate 83, respiratory rate is 20, blood pressure 142/76 and pulse ox 98% on 2 L nasal cannula. HEENT: Moist mucous membrane. Crowded airway. NECK: Short, thick neck. LUNGS: Fair airflow with few rhonchi. HEART: S1 and S2. ABDOMEN: Soft and nontender. No organomegaly. He has a Ceron catheter. EXTREMITIES: Trace edema. NEUROLOGIC: Awake, alert and follows simple commands. LABORATORY DATA: Show hemoglobin 13.7, hematocrit 42.3, WBC 12.3 and platelets are 170. INR 2.30. Sodium 135, potassium 4.3, chloride 102, bicarbonate 26, BUN 18, creatinine 0.8, glucose 148, lactic acid 0.9, calcium is 8.2, phosphorus 2.4, magnesium 2.0, AST 14, ALT 35, alk phos is 15 and albumin is 3.0. Urine culture has gram negative and blood culture has been negative. MEDICATIONS: He is on aspirin 81 mg daily, Azactam 1 g IV q. 8 hours, Coumadin 3 mg daily, Dilaudid 0.5 mg IV q. 4 hours p.r.n., DuoNeb q. 6 hours, insulin coverage, metoprolol tartrate 25 mg twice a day, MiraLax 17 g daily, Pepcid 20 mg daily, IV fluid normal saline 150 mL per hour and Xopenex 1.25 mg q. 6 hours p.r.n. IMPRESSION AND PLAN: Recurrent urinary tract infection, has indwelling catheter, quadriplegic, sleep apnea syndrome, diabetes, morbid obesity, chronic lung disease and bedridden. Encourage BiPAP use, keep head at 45 degrees Continue antibiotics. Gastric prophylaxis, anticoagulation. Thank you for this follow up. Yosef Dunbar MD [facility] # [id number]
[2017-01-18] MEDS: Albuterol-Ipratrop 3 mg / 0.5 (3 ml) UD IH SCH ×4 (02:35→20:15)
[2017-01-18] MEDS: Aztreonam 1 Gm in NS 100mL 100 ML IVPB SCH (05:15)
[2017-01-18 06:00] VITALS: O2SAT 99
[2017-01-18] MEDS: Insulin Reg-LOW-Coverage SC SCH ×4 (08:34→21:56)
[2017-01-18] MEDS: POLYETHYLENE GLYCOL 3350 17 GM/Dose PACKET PO SCH (09:33)
[2017-01-18] MEDS: HYDROmorphone 0.5 mg/0.5 ml ISec IVP PRN ×3 (09:33→23:00)
[2017-01-18] MEDS: Nystatin 100,000 Units/gm Topical Pow(15 gm) TOP SCH ×2 (09:38→18:28)
[2017-01-18 10:09] LABS: BASO # 0.01 K/mm3 (0.0-2.0); BASO % 0.1 % (0.0-3.0); EOS # 0.2 (0.0-0.7); EOS % 2.9 % (1.5-5.0); GRAN # 5.42 (1.4-6.5); GRAN % 75.6 % (50.0-68.0); HEMOGLOBIN 12.7 g/dL (14.0-18.0); LYMPH # 0.9 (1.2-3.4); LYMPH % 11.8 % (22.0-35.0); MEAN CELL VOLUME 88.3 fl (80.0-105.0); MEAN CORPUSCULAR HEMOGLOBIN 28.5 pg (25.0-35.0); MEAN CORPUSCULAR HGB CONC 32.2 g/dl (31.0-37.0); MEAN PLATELET VOLUME 9.9 fl (7.0-11.0); MONO # 0.7 (0.1-0.6); MONO % 9.6 % (1.0-6.0); PLATELET COUNT 159 10^3/uL (120.0-450.0); RBC 4.46 10^6/uL (3.5-6.1); WHITE BLOOD COUNT 7.2 10^3/ul (4.5-11.0)
[2017-01-18 10:16] LABS: BLOOD UREA NITROGEN 12 mg/dL (7-21); CALCIUM 8.2 mg/dL (8.4-10.5); GFR AFRICAN-AMERICAN > 60; GFR NON-AFRICAN AMERICAN > 60
[2017-01-18 10:28] LABS: INR 1.56 (0.93-1.08); PROTHROMBIN TIME 16.8 Seconds (9.9-11.8)
[2017-01-18] MEDS: AMIKACIN IVPB SCH ×2 (10:41→21:59)
[2017-01-18] MEDS: WATER IVPB SCH ×2 (10:41→21:59)
[2017-01-18] MEDS: DEXTROSE 5% IVPB SCH ×2 (10:41→21:59)
--- NOTE | 2017-01-18 15:45 | CP.PCM.PN ---
Subjective - Date & Time of Evaluation Date of Evaluation: 01/18/17 Time of Evaluation: 10:20 - Subjective Subjective: Comfortable, still having low grade temperatures, not in distress. Objective - Vital Signs/Intake and Output Vital Signs (last 24 hours): Temp Pulse Resp BP Pulse Ox 99.0 F 81 20 155/91 H 99 01/18/17 05:58 01/18/17 05:58 01/18/17 05:58 01/18/17 05:58 01/18/17 05:58 Intake and Output: 01/18/17 01/18/17 06:59 18:59 Intake Total 2600 Output Total 1700 Balance 900 - Medications Medications: Current Medications Albuterol/Ipratropium (Duoneb 3 Mg/0.5 Mg (3 Ml) Ud) 3 ml IH [id number] [facility] Last Admin: 01/18/17 07:38 Dose: 3 ml Aspirin (Aspirin Chewable) 81 mg PO DAILY GREG Famotidine (Pepcid) 40 mg PO HS [facility] Last Admin: 01/17/17 21:46 Dose: 40 mg Famotidine (Pepcid) 20 mg PO BID GREG Hydromorphone HCl (Dilaudid) 0.5 mg IVP Q4H PRN PRN Reason: Pain, Mild (1-3) Last Admin: 01/17/17 22:40 Dose: 0.5 mg Sodium Chloride (Sodium Chloride 0.9%) 1,000 mls @ 150 mls/hr IV .Q6H40M [facility] Last Admin: 01/18/17 01:42 Dose: 150 mls/hr Amikacin Sulfate 250 mg/ (Dextrose) 101 mls @ 204 mls/hr IVPB Q12 GREG PRN Reason: Protocol Insulin Human Regular (Humulin R Low) 0 units SC ACHS GREG PRN Reason: Protocol Last Admin: 01/18/17 08:34 Dose: Not Given Levalbuterol HCl (Xopenex) 1.25 mg IH Q6 PRN PRN Reason: Shortness of Breath Metoprolol Tartrate (Lopressor) 25 mg PO BID GREG Nystatin (Nystop Topical Powder) 0 gm TOP BID GREG Polyethylene Glycol (Miralax) 17 gm PO DAILY GREG Warfarin Sodium (Coumadin) 3 mg PO 1800 GREG PRN Reason: Protocol - Labs Labs: 01/17/17 12:29 01/17/17 08:46 PT 24.8 Seconds (9.9-11.8) H 01/17/17 10:00 INR 2.30 (0.93-1.08) H 01/17/17 10:00 APTT 49.2 Seconds (23.7-30.8) H 01/16/17 01:10 - Constitutional Appears: Non-toxic, No Acute Distress - Head Exam Head Exam: NORMAL INSPECTION - ENT Exam ENT Exam: Mucous Membranes Moist - Neck Exam Neck Exam: absent: Meningismus - Respiratory Exam Respiratory Exam: Decreased Breath Sounds - Cardiovascular Exam Cardiovascular Exam: +S1, +S2 - GI/Abdominal Exam GI & Abdominal Exam: Soft. absent: Tenderness Assessment and Plan - Assessment and Plan (Free Text) Plan: Assessment Severe sepsis with acute renal failure due to probable complicated UTI associated with indwelling montague catheter, growing ESBL-producing E. coli HTN DM morbid obesity with BMI 53 chronic montague catheter use typically changed every month chronic atrial fibrillation S/P laminectomy in 2014 Plan change Azactam to Amikacin (reluctant to use Merrem because of PCN allergy with lip and neck swelling); renal ultrasound does not show hydronephrosis - should target about 7 days of antibiotics Montague has been changed in the ED continue to trend WBC count and monitor for fever
--- NOTE | 2017-01-18 18:24 | PCM.URO ---
Urology Progress Note - Subjective Abdominal Pain: Yes (retention) - Objective Lab Studies: Reviewed Lab Results Last 24 Hours: Laboratory Results - last 24 hr 01/17/17 01/18/17 01/18/17 21:32 09:55 09:55 WBC 7.2 D RBC 4.46 Hgb 12.7 L Hct 39.4 L MCV 88.3 MCH 28.5 MCHC 32.2 RDW 14.0 Plt Count 159 MPV 9.9 Gran % 75.6 H Lymph % (Auto) 11.8 L [place] % (Auto) 9.6 H Eos % (Auto) 2.9 Baso % (Auto) 0.1 Gran # 5.42 Lymph # 0.9 L [place] # 0.7 H Eos # 0.2 Baso # 0.01 PT 16.8 H INR 1.56 H Sodium Potassium Chloride Carbon Dioxide Anion Gap BUN Creatinine Est GFR ( Amer) Est GFR (Non-Af Amer) POC Glucose (mg/dL) 165 H Random Glucose Calcium 01/18/17 01/18/17 09:55 12:19 WBC RBC Hgb Hct MCV MCH MCHC RDW Plt Count MPV Gran % Lymph % (Auto) [place] % (Auto) Eos % (Auto) Baso % (Auto) Gran # Lymph # [place] # Eos # Baso # PT INR Sodium 137 Potassium 4.4 Chloride 100 Carbon Dioxide 31 Anion Gap 10 BUN 12 Creatinine 0.8 Est GFR ( Amer) > 60 Est GFR (Non-Af Amer) > 60 POC Glucose (mg/dL) 117 H Random Glucose 146 H Calcium 8.2 L Intake & Output: Intake & Output 01/17/17 01/18/17 01/18/17 18:59 06:59 18:59 Intake Total 480 2600 960 Output Total 900 1700 1800 Balance -420 900 -840 Weight 414 lb 7.504 oz Intake: IV 2000 Right Antecubital 2000 Oral 480 600 960 Output: Urine 900 1700 1800 Urine, Voided 900 1700 1800 Other: # Bowel Movements 0 1 0 Vital Signs: Vital Signs - 24 hr 01/17/17 01/17/17 01/18/17 22:00 23:00 00:01 Temperature 99.8 F H Pulse Rate 100 H 83 103 H Respiratory 20 Rate Blood Pressure 133/70 O2 Sat by Pulse Oximetry 01/18/17 01/18/1717 02:00 05:58 09:33 Temperature 99.0 F Pulse Rate 83 66 77 Respiratory 20 Rate Blood Pressure 155/91 H 163/87 H O2 Sat by Pulse 99 Oximetry 01/18/17 01/18/17 10:00 17:03 Temperature 97.9 F Pulse Rate 77 71 Respiratory 19 Rate Blood Pressure 146/71 O2 Sat by Pulse Oximetry
--- NOTE | 2017-01-18 19:17 | PN ---
DATE: 01/18/2017 REFERRING PHYSICIAN: Dr. Frazier. SUBJECTIVE: The patient is lying in the bed, head at 45 degrees, status post PICC line. No headache, no rhinitis, tolerated the BiPAP well, no nausea, no vomiting. Has a Ceron catheter. Trace leg swelling. OBJECTIVE: GENERAL: No acute distress. VITAL SIGNS: Temp is 99, heart rate is 66, respiratory rate is 20, blood pressure 163/87, pulse ox 99% on nasal cannula. HEENT: Moist mucous membrane. Crowded airway. Mallampati class 4. NECK: Supple. No JVD. LUNGS: Fair airflow with few rhonchi. HEART: S1 and S2. ABDOMEN: Obese, soft. EXTREMITIES: There is a chronic changes of the lower extremity. NEUROLOGIC: Awake, alert and follows simple commands. MEDICATIONS: He is on amikacin 250 mg q. 12 hours; aspirin 81 mg daily, Coumadin 3 mg, mainly given tonight; Dilaudid 0.5 mg q. 4 hours p.r.n., DuoNeb q. 6 hours, insulin coverage, metoprolol tartrate 25 mg twice a day, MiraLax 17 g daily, nystatin to affected area twice a day, Pepcid 40 mg at bedtime, Pepcid 20 mg b.i.d., and Xopenex inhaler q. 6 hours p.r.n. LABORATORY DATA: Show hemoglobin 12.7, hematocrit 39.4, WBC is 7.2, platelet count is 159, INR 1.56. Sodium 137, potassium 4.4, chloride 100, bicarbonate 31, BUN is 12, creatinine 0.8, glucose 146, calcium is 8.2. Microbiology; blood culture has been negative. Urine culture has E. coli. IMPRESSION AND PLAN: Recurrent urinary tract infection, has indwelling catheter; also has some area of cellulitis, quadriplegia, sleep apnea syndrome, diabetes, morbid obesity, chronic lung disease. He is bedridden. *------*. Continue bronchodilator, BiPAP while sleeping, antibiotics, gastric prophylaxis, high risk for pressure ulcer. Thank you and we will follow with you. Yosef Dunbar MD
--- NOTE | 2017-01-19 01:36 | CP.PCM.PN ---
Subjective - Date & Time of Evaluation Date of Evaluation: 01/18/17 Time of Evaluation: 10:00 - Subjective Subjective: Comfortable, still having low grade temperatures, not in distress.getting anb . seen by urologist Objective - Vital Signs/Intake and Output Vital Signs (last 24 hours): Temp Pulse Resp BP Pulse Ox 98.9 F 74 20 143/76 99 01/19/17 00:01 01/19/17 00:01 01/19/17 00:01 01/19/17 00:01 01/18/17 05:58 Intake and Output: 01/18/17 01/19/17 18:59 06:59 Intake Total 960 Output Total 1800 Balance -840 - Medications Medications: Current Medications Albuterol/Ipratropium (Duoneb 3 Mg/0.5 Mg (3 Ml) Ud) 3 ml IH [id number] [facility] Last Admin: 01/18/17 20:15 Dose: 3 ml Aspirin (Aspirin Chewable) 81 mg PO DAILY [facility] Last Admin: 01/18/17 09:33 Dose: 81 mg Famotidine (Pepcid) 40 mg PO HS [facility] Last Admin: 01/18/17 23:31 Dose: Not Given Famotidine (Pepcid) 20 mg PO BID [facility] Last Admin: 01/18/17 18:28 Dose: 20 mg Hydromorphone HCl (Dilaudid) 0.5 mg IVP Q4H PRN PRN Reason: Pain, Mild (1-3) Last Admin: 01/18/17 23:00 Dose: 0.5 mg Amikacin Sulfate 250 mg/ (Dextrose) 101 mls @ 204 mls/hr IVPB Q12 GREG PRN Reason: Protocol Last Admin: 01/18/17 21:59 Dose: 204 mls/hr Insulin Human Regular (Humulin R Low) 0 units SC ACHS GREG PRN Reason: Protocol Last Admin: 01/18/17 21:56 Dose: Not Given Levalbuterol HCl (Xopenex) 1.25 mg IH Q6 PRN PRN Reason: Shortness of Breath Metoprolol Tartrate (Lopressor) 25 mg PO BID [facility] Last Admin: 01/18/17 18:27 Dose: 25 mg Nystatin (Nystop Topical Powder) 0 gm TOP BID [facility] Last Admin: 01/18/17 18:28 Dose: 1 applic Polyethylene Glycol (Miralax) 17 gm PO DAILY [facility] Last Admin: 01/18/17 09:33 Dose: 17 gm Warfarin Sodium (Coumadin) 3 mg PO 1800 GREG PRN Reason: Protocol Last Admin: 01/18/17 18:27 Dose: 3 mg - Labs Labs: 01/18/17 09:55 01/18/17 09:55 PT 16.8 Seconds (9.9-11.8) H 01/18/17 09:55 INR 1.56 (0.93-1.08) H 01/18/17 09:55 APTT 49.2 Seconds (23.7-30.8) H 01/16/17 01:10 - Constitutional Appears: Well - Head Exam Head Exam: ATRAUMATIC, NORMAL INSPECTION, NORMOCEPHALIC - Eye Exam Eye Exam: EOMI, Normal appearance, PERRL Pupil Exam: NORMAL ACCOMODATION, PERRL - ENT Exam ENT Exam: Mucous Membranes Moist, Normal Exam - Neck Exam Neck Exam: Full ROM, Normal Inspection. absent: Lymphadenopathy - Respiratory Exam Respiratory Exam: Clear to Ausculation Bilateral, NORMAL BREATHING PATTERN - Cardiovascular Exam Cardiovascular Exam: REGULAR RHYTHM, +S1, +S2. absent: Murmur - GI/Abdominal Exam GI & Abdominal Exam: Soft, Normal Bowel Sounds. absent: Tenderness - Rectal Exam Rectal Exam: NORMAL INSPECTION - Exam Exam: Circumcision, NORMAL INSPECTION External exam: NORMAL EXTERNAL EXAM Speculum exam: NORMAL SPECULUM EXAM Bimanual exam: NORMAL BIMANUAL EXAM - Extremities Exam Extremities Exam: Full ROM, Normal Capillary Refill, Normal Inspection. absent : Joint Swelling, Pedal Edema - Back Exam Back Exam: NORMAL INSPECTION - Neurological Exam Neurological Exam: Alert, Awake, CN II-XII Intact, Normal Gait, Oriented x3 - Psychiatric Exam Psychiatric exam: Normal Affect, Normal Mood - Skin Skin Exam: Dry, Intact, Normal Color, Warm Assessment and Plan - Assessment and Plan (Free Text) Assessment: Severe sepsis with acute renal failure due to probable complicated UTI associated with indwelling mont[place] catheter, growing ESBL-producing E. coli HTN DM morbid obesity with BMI 53 chronic montague catheter use typically changed every month chronic atrial fibrillation S/P laminectomy in 2014 Plan change Azactam to Amikacin (reluctant to use Merrem because of PCN allergy with lip and neck swelling); renal ultrasound does not show hydronephrosis - should target about 7 days of antibiotics Montague has been changed in the ED continue to trend WBC count and monitor for fever
[2017-01-19] MEDS: Albuterol-Ipratrop 3 mg / 0.5 (3 ml) UD IH SCH ×4 (02:35→19:52)
[2017-01-19] MEDS: DEXTROSE 5% IVPB SCH ×2 (09:40→21:06)
[2017-01-19] MEDS: AMIKACIN IVPB SCH ×2 (09:40→21:06)
[2017-01-19] MEDS: WATER IVPB SCH ×2 (09:40→21:06)
[2017-01-19] MEDS: POLYETHYLENE GLYCOL 3350 17 GM/Dose PACKET PO SCH (09:41)
[2017-01-19] MEDS: Nystatin 100,000 Units/gm Topical Pow(15 gm) TOP SCH ×2 (09:51→18:26)
[2017-01-19] MEDS: HYDROmorphone 0.5 mg/0.5 ml ISec IVP PRN (12:18)
--- NOTE | 2017-01-19 15:31 | CP.PCM.PN ---
Subjective - Date & Time of Evaluation Date of Evaluation: 01/19/17 Time of Evaluation: 09:50 - Subjective Subjective: Still with some suprapubic pain but better compared to during admission, no fevers overnight, no nausea, no diarrhea. Objective - Vital Signs/Intake and Output Vital Signs (last 24 hours): Temp Pulse Resp BP Pulse Ox 98.9 F 69 20 135/72 99 01/19/17 05:37 01/19/17 05:37 01/19/17 05:37 01/19/17 05:37 01/19/17 05:37 Intake and Output: 01/18/17 01/19/17 18:59 06:59 Intake Total 960 340 Output Total 1800 3800 Balance -840 -3460 - Medications Medications: Current Medications Albuterol/Ipratropium (Duoneb 3 Mg/0.5 Mg (3 Ml) Ud) 3 ml IH [id number] [facility] Last Admin: 01/19/17 02:35 Dose: 3 ml Aspirin (Aspirin Chewable) 81 mg PO DAILY [facility] Last Admin: 01/18/17 09:33 Dose: 81 mg Famotidine (Pepcid) 40 mg PO HS [facility] Last Admin: 01/18/17 23:31 Dose: Not Given Famotidine (Pepcid) 20 mg PO BID [facility] Last Admin: 01/18/17 18:28 Dose: 20 mg Hydromorphone HCl (Dilaudid) 0.5 mg IVP Q4H PRN PRN Reason: Pain, Mild (1-3) Last Admin: 01/18/17 23:00 Dose: 0.5 mg Amikacin Sulfate 250 mg/ (Dextrose) 101 mls @ 204 mls/hr IVPB Q12 GREG PRN Reason: Protocol Last Admin: 01/18/17 21:59 Dose: 204 mls/hr Insulin Human Regular (Humulin R Low) 0 units SC ACHS GREG PRN Reason: Protocol Last Admin: 01/18/17 21:56 Dose: Not Given Levalbuterol HCl (Xopenex) 1.25 mg IH Q6 PRN PRN Reason: Shortness of Breath Metoprolol Tartrate (Lopressor) 25 mg PO BID [facility] Last Admin: 01/18/17 18:27 Dose: 25 mg Nystatin (Nystop Topical Powder) 0 gm TOP BID [facility] Last Admin: 01/18/17 18:28 Dose: 1 applic Polyethylene Glycol (Miralax) 17 gm PO DAILY [facility] Last Admin: 01/18/17 09:33 Dose: 17 gm Warfarin Sodium (Coumadin) 3 mg PO 1800 GREG PRN Reason: Protocol Last Admin: 01/18/17 18:27 Dose: 3 mg - Labs Labs: 01/18/17 09:55 01/18/17 09:55 PT 16.8 Seconds (9.9-11.8) H 01/18/17 09:55 INR 1.56 (0.93-1.08) H 01/18/17 09:55 APTT 49.2 Seconds (23.7-30.8) H 01/16/17 01:10 - Constitutional Appears: Non-toxic, No Acute Distress - Head Exam Head Exam: NORMAL INSPECTION - ENT Exam ENT Exam: Mucous Membranes Moist - Neck Exam Neck Exam: absent: Lymphadenopathy, Meningismus - Respiratory Exam Respiratory Exam: Decreased Breath Sounds - Cardiovascular Exam Cardiovascular Exam: +S1, +S2 - GI/Abdominal Exam GI & Abdominal Exam: Soft. absent: Tenderness Assessment and Plan - Assessment and Plan (Free Text) Plan: Assessment Severe sepsis with acute renal failure due to probable complicated UTI associated with indwelling [place] catheter, growing ESBL-producing E. coli HTN DM morbid obesity with BMI 53 chronic montague catheter use typically changed every month chronic atrial fibrillation S/P laminectomy in 2014 Plan continue Amikacin day 2 (reluctant to use Merrem because of PCN allergy with lip and neck swelling); renal ultrasound does not show hydronephrosis - should target about 7 days of antibiotics Montague has been changed in the ED continue to trend WBC count and monitor for fever follow up repeat urine cx results
[2017-01-19] MEDS: Insulin Reg-LOW-Coverage SC SCH ×2 (18:25→22:32)
--- NOTE | 2017-01-19 20:51 | PN ---
DATE: 01/19/2017 REFERRING PHYSICIAN: Dr. Frazier. SUBJECTIVE: The patient is lying in the bed, head at 45 degrees. Night was unremarkable. Tolerated BiPAP well. No nausea, no vomiting, no diarrhea. Had Ceron catheter. No leg pain or leg swelling. The neck pain has improved. OBJECTIVE: GENERAL: In no acute distress. VITAL SIGNS: Temperature is 98, heart rate is 64, respiratory rate is 18, blood pressure 141/71, and pulse ox 99% on nasal cannula. HEENT: Moist mucous membranes. Crowded airway. Mallampati score is IV. NECK: Supple. No JVD. LUNGS: Had a fair airflow with few rhonchi. HEART: S1 and S2. ABDOMEN: Soft, nontender, no organomegaly. EXTREMITIES: There is not much edema. NEUROLOGICAL: Awake and alert, follows simple commands. MEDICATIONS: He is on amikacin 250 mg q.12 hour, aspirin 81 mg daily, Coumadin 3 mg at bedtime, Dilaudid 0.5 mg q.4 hour p.r.n., DuoNeb q.6 hour, insulin coverage, metoprolol tartrate 25 mg twice a day, Miralax 17 g daily, Pepcid 40 mg at bedtime, Xopenex inhale q.6 hour p.r.n. LABORATORY DATA: Hemoglobin 12.7, hematocrit 39.4 that is from yesterday. Blood sugar is 102. Urine has E. coli. Blood culture has been negative. IMPRESSION AND PLAN: Recurrent urinary tract infection, indwelling catheter is in place; quadriplegic; sleep apnea syndrome; diabetes; morbid obesity; chronic lung disease; bedridden. Continue bronchodilator. Keep head at 45 degrees. Continue BiPAP while sleeping, antibiotics. The patient was seen by urology. Thank you and we will follow with you. Yosef Dunbar MD
[2017-01-20] MEDS: Albuterol-Ipratrop 3 mg / 0.5 (3 ml) UD IH SCH ×2 (01:13→08:04)
[2017-01-20] MEDS: Insulin Reg-LOW-Coverage SC SCH ×2 (07:55→11:56)
--- NOTE | 2017-01-20 09:43 | PN ---
DATE: SUBJECTIVE: The patient is a 56-year-old male. The patient is seen and examined at the bedside, looking comfortable. No nausea, vomiting, or diarrhea. No hematuria or hematochezia. No swelling of the leg. No chest pain. No palpitations. No headache or dizziness. PHYSICAL EXAMINATION: VITAL SIGNS: Temperature 98, heart rate 64, respiratory rate 18, blood pressure 140/70, and pulse oximetry 99% on nasal cannula. HEENT: Head is normocephalic and atraumatic. Eyes; PERRLA. Extraocular muscles intact. Conjunctivae clear. Nose is patent. Mucous membrane moist. NECK: Supple. No carotid bruits or thyromegaly. CHEST: Bilaterally symmetrical. HEART: S1 and S2 positive. LUNGS: Clear to auscultation. ABDOMEN: Soft and nontender. No organomegaly. EXTREMITIES: No edema. No cyanosis. NEUROLOGICAL: The patient is awake, alert, and follows simple commands. MEDICATIONS: Amikacin, aspirin, Coumadin, Dilaudid, DuoNeb, metoprolol, MiraLax, Pepcid, and Xopenex. LABORATORY DATA: Hemoglobin 12.7, hematocrit 39.4, and sugar 102. Blood cultures have been negative. ASSESSMENT AND PLAN: Mr. Marcus Valdovinos is a 56-year-old male with repeated urinary tract infection, indwelling catheter replaced, venectomy with an accident, quadriplegia, sleep apnea syndrome, diabetes mellitus, morbid obesity, chronic obstructive lung disease, bedridden, obstructive sleep apnea syndrome, getting antibiotics, and put peripherally inserted central catheter line. Urologist and Infectious Disease is on the case. According to Dr. Talib Cisneros, severe sepsis with acute renal failure due to probably complicated urinary tract infection associated with indwelling Ceron catheter; growing extended-spectrum beta-lactamases producing Escherichia coli; hypertension; chronic atrial fibrillation, he is on Coumadin; had laminectomy in 2015; and amikacin day 2. His ultrasound is reviewed by me. The patient needs at least 7 days of antibiotics. Ceron has been changed. Continue trending the temperature and white blood cell. Follow up with repeat urine culture test and we will follow up. Thalia Frazier MD
[2017-01-20 09:51] LABS: HEMOGLOBIN 13.4 g/dL (14.0-18.0); MEAN CORPUSCULAR HEMOGLOBIN 28.8 pg (25.0-35.0); MEAN CORPUSCULAR HGB CONC 32.8 g/dl (31.0-37.0); MEAN PLATELET VOLUME 9.5 fl (7.0-11.0); RBC 4.65 10^6/uL (3.5-6.1); RED CELL DISTRIBUTION WIDTH 13.5 % (11.5-14.5); WHITE BLOOD COUNT 6.9 10^3/ul (4.5-11.0)
[2017-01-20 10:00] LABS: BLOOD UREA NITROGEN 11 mg/dL (7-21); CALCIUM 8.6 mg/dL (8.4-10.5); GFR AFRICAN-AMERICAN > 60; GFR NON-AFRICAN AMERICAN > 60; INR 1.22 (0.93-1.08); PROTHROMBIN TIME 13.2 Seconds (9.9-11.8)
[2017-01-20] MEDS: DEXTROSE 5% IVPB SCH (10:19)
[2017-01-20] MEDS: AMIKACIN IVPB SCH (10:19)
[2017-01-20] MEDS: POLYETHYLENE GLYCOL 3350 17 GM/Dose PACKET PO SCH (10:19)
[2017-01-20] MEDS: WATER IVPB SCH (10:19)
[2017-01-20] MEDS: Nystatin 100,000 Units/gm Topical Pow(15 gm) TOP SCH (10:26)
[2017-01-20 12:29] VITALS: BP 169/86; RESP 16; TEMP 98
[2017-01-20 12:32] VITALS: PULSE 72
--- NOTE | 2017-01-20 17:56 | CP.PCM.PN ---
Subjective - Date & Time of Evaluation Date of Evaluation: 01/20/17 Time of Evaluation: 09:55 - Subjective Subjective: Comfortable, less suprapubic pain, no fevers overnight. Objective - Vital Signs/Intake and Output Vital Signs (last 24 hours): Temp Pulse Resp BP Pulse Ox 98.8 F 63 20 173/93 H 99 01/20/17 00:01 01/20/17 02:00 01/20/17 00:01 01/20/17 00:01 01/20/17 00:01 Intake and Output: 01/19/17 01/20/17 18:59 06:59 Intake Total 420 Output Total 1900 Balance -1480 - Medications Medications: Current Medications Albuterol/Ipratropium (Duoneb 3 Mg/0.5 Mg (3 Ml) Ud) 3 ml IH [id number] [facility] Last Admin: 01/20/17 01:13 Dose: 3 ml Aspirin (Aspirin Chewable) 81 mg PO DAILY [facility] Last Admin: 01/19/17 09:41 Dose: 81 mg Famotidine (Pepcid) 40 mg PO HS [facility] Last Admin: 01/19/17 22:33 Dose: Not Given Famotidine (Pepcid) 20 mg PO BID [facility] Last Admin: 01/19/17 18:23 Dose: 20 mg Hydromorphone HCl (Dilaudid) 0.5 mg IVP Q4H PRN PRN Reason: Pain, Mild (1-3) Last Admin: 01/19/17 12:18 Dose: 0.5 mg Amikacin Sulfate 250 mg/ (Dextrose) 101 mls @ 204 mls/hr IVPB Q12 GREG PRN Reason: Protocol Last Admin: 01/19/17 21:06 Dose: 204 mls/hr Insulin Human Regular (Humulin R Low) 0 units SC ACHS [facility] PRN Reason: Protocol Last Admin: 01/19/17 22:32 Dose: Not Given Levalbuterol HCl (Xopenex) 1.25 mg IH Q6 PRN PRN Reason: Shortness of Breath Metoprolol Tartrate (Lopressor) 25 mg PO BID [facility] Last Admin: 01/19/17 18:23 Dose: 25 mg Nystatin (Nystop Topical Powder) 0 gm TOP BID [facility] Last Admin: 01/19/17 18:26 Dose: 1 applic Polyethylene Glycol (Miralax) 17 gm PO DAILY GREG Last Admin: 01/19/17 09:41 Dose: 17 gm Warfarin Sodium (Coumadin) 3 mg PO 1800 GREG PRN Reason: Protocol Last Admin: 01/19/17 18:23 Dose: 3 mg - Labs Labs: 01/18/17 09:55 01/18/17 09:55 PT 16.8 Seconds (9.9-11.8) H 01/18/17 09:55 INR 1.56 (0.93-1.08) H 01/18/17 09:55 APTT 49.2 Seconds (23.7-30.8) H 01/16/17 01:10 - Constitutional Appears: Non-toxic, No Acute Distress - Head Exam Head Exam: NORMAL INSPECTION - Neck Exam Neck Exam: absent: Meningismus - Respiratory Exam Respiratory Exam: Decreased Breath Sounds - Cardiovascular Exam Cardiovascular Exam: +S1, +S2 - GI/Abdominal Exam GI & Abdominal Exam: Soft. absent: Tenderness Assessment and Plan - Assessment and Plan (Free Text) Plan: Assessment Severe sepsis with acute renal failure due to probable complicated UTI associated with indwelling mont[place] catheter, growing ESBL-producing E. coli HTN DM morbid obesity with BMI 53 chronic montague catheter use typically changed every month chronic atrial fibrillation S/P laminectomy in 2014 Plan continue Amikacin day 3 (reluctant to use Merrem because of PCN allergy with lip and neck swelling); renal ultrasound does not show hydronephrosis - should target about 7 days of antibiotics Montague has been changed in the ED
--- NOTE | 2017-01-21 10:48 | CP.PCM.DIS ---
Provider - Provider Date of Admission: 01/16/17 04:08 Attending physician: Thalia Frazier MD Primary care physician: olimpia sanders dc of 01/20/17 Consults: Marcus Valdovinos is a 55 year old male, whose past medical history includes hypertension, diabetes, morbid obesity, urosepsis multiple times, chronic [place] , COPD, CHF, atrial fibrillation, and quadriplegia due to CVA, who presents to the Emergency department transferred from residential for right flank pain. Patient states he began experiencing gradually worsening right flank pain since 12:00 yesterday. Patient also complaining of pain at [place] site for the past week. Patient denies any chest pain, shortness of breath, nausea, vomiting, diarrhea, neck pain, headache, dizziness, or any other complaints Time Spent in preparation of Discharge (in minutes): 60 Hospital Course - Lab Results Lab Results: Micro Results 01/18/17 16:25 Urine,[place] Urine Culture - Final No Growth (<1,000 CFU/ML) Most Recent Lab Values WBC 6.9 10^3/ul (4.5-11.0) 01/20/17 09:47 RBC 4.65 10^6/uL (3.5-6.1) 01/20/17 09:47 Hgb 13.4 g/dL (14.0-18.0) L 01/20/17 09:47 Hct 40.9 % (42.0-52.0) L 01/20/17 09:47 MCV 88.0 fl (80.0-105.0) 01/20/17 09:47 MCH 28.8 pg (25.0-35.0) 01/20/17 09:47 MCHC 32.8 g/dl (31.0-37.0) 01/20/17 09:47 RDW 13.5 % (11.5-14.5) 01/20/17 09:47 Plt Count 179 10^3/uL (120.0-450.0) 01/20/17 09:47 MPV 9.5 fl (7.0-11.0) 01/20/17 09:47 Gran % 75.6 % (50.0-68.0) H 01/18/17 09:55 Lymph % (Auto) 11.8 % (22.0-35.0) L 01/18/17 09:55 [place] % (Auto) 9.6 % (1.0-6.0) H 01/18/17 09:55 Eos % (Auto) 2.9 % (1.5-5.0) 01/18/17 09:55 Baso % (Auto) 0.1 % (0.0-3.0) 01/18/17 09:55 Gran # 5.42 (1.4-6.5) 01/18/17 09:55 Lymph # 0.9 (1.2-3.4) L 01/18/17 09:55 [place] # 0.7 (0.1-0.6) H 01/18/17 09:55 Eos # 0.2 (0.0-0.7) 01/18/17 09:55 Baso # 0.01 K/mm3 (0.0-2.0) 01/18/17 09:55 Neutrophils % (Manual) 81 % (50.0-70.0) H 01/16/17 01:10 Band Neutrophils % 6 % (0-2) H 01/16/17 01:10 Lymphocytes % (Manual) 3 % (22.0-35.0) L 01/16/17 01:10 Monocytes % (Manual) 9 % (1.0-6.0) H 01/16/17 01:10 Eosinophils % (Manual) 1 % (0.0-3.0) 01/16/17 01:10 Platelet Evaluation Normal (NORMAL) 01/16/17 01:10 PT 13.2 Seconds (9.9-11.8) H 01/20/17 09:47 INR 1.22 (0.93-1.08) H 01/20/17 09:47 APTT 49.2 Seconds (23.7-30.8) H 01/16/17 01:10 pO2 224 mm/Hg (30-55) H 01/16/17 04:45 VBG pH 7.41 (7.32-7.43) 01/16/17 04:45 VBG pCO2 36.0 (40-60) L 01/16/17 04:45 VBG HCO3 22.8 mmol/l (21-28) 01/16/17 04:45 VBG Total CO2 23.9 mmol.L (22-28) 01/16/17 04:45 VBG O2 Sat (Calc) 99.6 % (40-65) H 01/16/17 04:45 VBG Base Excess -1.4 mmol/L (0.0-2.0) L 01/16/17 04:45 VBG Potassium 5.0 mmol/L (3.6-5.2) 01/16/17 04:45 Sodium 135.0 mmol/L (132-148) 01/16/17 04:45 Chloride 101.0 mmol/L (98-107) 01/16/17 04:45 Glucose 180 mg/dl (75-110) H 01/16/17 04:45 Lactate 3.6 mmol/L (0.7-2.1) H 01/16/17 04:45 FiO2 21.0 % 01/16/17 04:45 Sodium 136 mmol/L (132-148) 01/20/17 09:47 Potassium 4.2 mmol/L (3.6-5.0) 01/20/17 09:47 Chloride 95 mmol/L (95-110) 01/20/17 09:47 Carbon Dioxide 34 mmol/L (21-33) H 01/20/17 09:47 Anion Gap 11 (10-20) 01/20/17 09:47 BUN 11 mg/dL (7-21) 01/20/17 09:47 Creatinine 0.7 mg/dL (0.5-1.4) 01/20/17 09:47 Est GFR ( Amer) > 60 01/20/17 09:47 Est GFR (Non-Af Amer) > 60 01/20/17 09:47 POC Glucose (mg/dL) 133 mg/dL (65-110) H 01/20/17 11:24 Random Glucose 162 mg/dL (70-110) H 01/20/17 09:47 Lactic Acid 0.9 mmol/L (0.7-2.1) 01/17/17 10:00 Calcium 8.6 mg/dL (8.4-10.5) 01/20/17 09:47 Phosphorus 2.4 mg/dL (2.5-4.5) L 01/17/17 08:46 Magnesium 2.0 mg/dL (1.7-2.2) 01/17/17 08:46 Total Bilirubin 0.7 mg/dL (0.2-1.3) 01/17/17 08:46 AST 14 U/L (15-59) L 01/17/17 08:46 ALT 35 U/L (7-56) 01/17/17 08:46 Alkaline Phosphatase 59 U/L (38-133) 01/17/17 08:46 Total Protein 6.0 g/dL (5.8-8.3) 01/17/17 08:46 Albumin 3.0 g/dL (3.0-4.8) 01/17/17 08:46 Globulin 3.0 gm/dL 01/17/17 08:46 Albumin/Globulin Ratio 1.0 (1.1-1.8) L 01/17/17 08:46 Venous Blood Potassium 5.0 mmol/L (3.6-5.2) 01/16/17 04:45 Urine Color Yellow (YELLOW) 01/16/17 01:30 Urine Appearance Cloudy (CLEAR) 01/16/17 01:30 Urine pH 6.0 (4.7-8.0) 01/16/17 01:30 Ur Specific [place] 1.020 (1.005-1.035) 01/16/17 01:30 Urine Protein 100 mg/dL (<30 mg/dL) H 01/16/17 01:30 Urine Glucose (UA) Negative mg/dL (NEGATIVE) 01/16/17 01:30 Urine Ketones Negative mg/dL (NEGATIVE) 01/16/17 01:30 Urine Blood Large (NEGATIVE) H 01/16/17 01:30 Urine Nitrate Negative (NEGATIVE) 01/16/17 01:30 Urine Bilirubin Negative (NEGATIVE) 01/16/17 01:30 Urine Urobilinogen 0.2 E.U./dL (<1 E.U./dL) 01/16/17 01:30 Ur Leukocyte Esterase Large [place]/uL (NEGATIVE) H 01/16/17 01:30 Urine RBC 0 - 2 /hpf (0-2) 01/16/17 01:30 Urine WBC Tntc /hpf (0-6) 01/16/17 01:30 Ur Epithelial Cells 0 - 2 /hpf (0-5) 01/16/17 01:30 Urine Bacteria Many (NEG) 01/16/17 01:30 - Hospital Course Hospital Course: Marcus Valdovinos is a 55 year old male, whose past medical history includes hypertension, diabetes, morbid obesity, urosepsis multiple times, chronic [place] , COPD, CHF, atrial fibrillation, and quadriplegia due to CVA, who presents to the Emergency department transferred from residential for right flank pain. Patient states he began experiencing gradually worsening right flank pain since 12:00 yesterday. Patient also complaining of pain at [place] site for the past week. Patient denies any chest pain, shortness of breath, nausea, vomiting, diarrhea, neck pain, headache, dizziness, or any other complaints.admitted pt in the hospital . id consult called, Severe sepsis with acute renal failure due to probable complicated UTI associated with indwelling mont[place] catheter, growing ESBL-producing E. coli HTN DM morbid obesity with BMI 53 chronic mont[place] catheter use typically changed every month chronic atrial fibrillation S/P laminectomy in 2014 Plan continue Amikacin day 3 (reluctant to use Merrem because of PCN allergy with lip and neck swelling); renal ultrasound does not show hydronephrosis - should target about 7 days of antibiotics Mont[place] has been changed in the ED, dc to rehab after id and urology cl. Discharge Exam - Head Exam Head Exam: NORMAL INSPECTION - Eye Exam Eye Exam: EOMI, Normal appearance, PERRL Pupil Exam: NORMAL ACCOMODATION, PERRL - GI/Abdominal Exam GI & Abdominal Exam: Normal Bowel Sounds - Rectal Exam Rectal Exam: NORMAL INSPECTION - Exam Exam: Circumcision, NORMAL INSPECTION External exam: NORMAL EXTERNAL EXAM Speculum exam: NORMAL SPECULUM EXAM Bimanual exam: NORMAL BIMANUAL EXAM - Neurological Exam Neurological exam: Alert, CN II-XII Intact, Normal Gait, Oriented x3, Reflexes Normal - Psychiatric Exam Psychiatric exam: Normal Affect, Normal Mood - Skin Skin Exam: Dry, Intact, Normal Color, Warm Discharge Plan - Follow Up Plan Condition: STABLE Disposition: TRANSF TO SNF Instructions: Sepsis (GEN) Additional Instructions: Pt is to continue Amikacin q12h x7days, d/c on 01/26. needs a food trades assistants consult. for bmp 2ce weekly x2.
== END 2017-01-20 13:33 | DRG 698 ==
LOC: ED 23:33 → ERH 01-16 04:08 → 2RSO 01-16 06:34
PROVIDERS: ADMIT Internal Medicine; ATTEND Internal Medicine
PROC: 5A09357 Assistance with Respiratory Ventilation, Less than 24 Consecutive Hours, Continuous Positive Airway Pressure (ICD-10-PCS; principal; 2017-01-16)
PROC: 0T2BX0Z Change Drainage Device in Bladder, External Approach (ICD-10-PCS; 2017-01-16)
DX: T83.511A Infection and inflammatory reaction due to indwelling urethral catheter, initial encounter (principal); A41.9 Sepsis, unspecified organism; R65.20 Severe sepsis without septic shock; G82.50 Quadriplegia, unspecified; N30.00 Acute cystitis without hematuria; N17.9 Acute kidney failure, unspecified; Z68.43 Body mass index [BMI] 50.0-59.9, adult; I11.0 Hypertensive heart disease with heart failure; I50.9 Heart failure, unspecified; E66.01 Morbid (severe) obesity due to excess calories; I48.2 Chronic atrial fibrillation; J44.9 Chronic obstructive pulmonary disease, unspecified; E11.9 Type 2 diabetes mellitus without complications; Y84.6 Urinary catheterization as the cause of abnormal reaction of the patient, or of later complication, without mention of misadventure at the time of the procedure; R33.9 Retention of urine, unspecified; B96.20 Unspecified Escherichia coli [E. coli] as the cause of diseases classified elsewhere; G47.33 Obstructive sleep apnea (adult) (pediatric); Z16.12 Extended spectrum beta lactamase (ESBL) resistance; Z87.891 Personal history of nicotine dependence; Z74.01 Bed confinement status; I69.365 Other paralytic syndrome following cerebral infarction, bilateral; Z88.0 Allergy status to penicillin; Z79.82 Long term (current) use of aspirin; Z79.4 Long term (current) use of insulin; Z79.01 Long term (current) use of anticoagulants

== ENCOUNTER 2017-03-17 13:49 | Inpatient (IN) | payer MEDICARE, MEDICAID ==
[2017-03-17 13:49] VITALS: PULSE 90
[2017-03-17] MEDS ORDERED: Sodium Chloride 0.9% 500 ML IV STA (14:09)
--- NOTE | 2017-03-17 14:12 | ED PDOC ---
Arrival/HPI - General Chief Complaint: Male Genitourinary Time Seen by Provider: 03/17/17 13:51 - History of Present Illness Narrative History of Present Illness (Text): 03/17/17 14:10 Patient is a 56 y/o M with hx of hypertension, diabetes, morbid obesity, urosepsis multiple times, chronic [place], COPD, CHF, atrial fibrillation, and quadriplegia due to CVA, who presents to the Emergency department transferred from long term for hematuria. Montague last changed February 15. Patient was admitted in 01/2017 for severe sepsis with acute renal failure due to probable complicated UTI associated with indwelling montague catheter, growing ESBL-producing E. coli. Renal ultrasound was negative. Started on amikacin. PMD: Freddie Past Medical History - Infectious Disease Hx of Infectious Diseases: None - Cardiac Hx Cardiac Disorders: Yes Hx Congestive Heart Failure: Yes Hx Hypertension: Yes - Pulmonary Hx Respiratory Disorders: Yes Hx Asthma: Yes Hx Chronic Obstructive Pulmonary Disease (COPD): Yes - Neurological Other/Comment: Paraplegia/ spinal tumor - HEENT Hx HEENT Disorder: Yes Hx Blind: Yes (left eye) - Renal Hx Renal Disorder: No - Endocrine/Metabolic Hx Endocrine Disorders: Yes Hx Diabetes Mellitus Type 2: Yes - Hematological/Oncological Hx Blood Disorders: Yes Hx Anemia: Yes - Integumentary Hx Dermatological Disorder: No - Musculoskeletal/Rheumatological Hx Musculoskeletal Disorders: No Hx Falls: No - Gastrointestinal Hx Gastrointestinal Disorders: Yes Other/Comment: Morbid obesity, incontinent - Genitourinary/Gynecological Hx Genitourinary Disorders: Yes Hx Urinary Tract Infection: Yes - Psychiatric Hx Psychophysiologic Disorder: No Hx Substance Use: No - Surgical History Other/Comment: laminectomy - Anesthesia Hx Anesthesia: Yes Hx Anesthesia Reactions: No Hx Malignant Hyperthermia: No Family/Social History Family/Social History: No Known Family HX Smoking Status: Former Smoker Hx Alcohol Use: No Hx Substance Use: No Allergies/Home Meds Allergies/Adverse Reactions: Allergies Penicillins Allergy (Verified 03/17/17 13:51) ANAPHYLAXIS Home Medications: Home Meds Medication Instructions Recorded Confirmed Famotidine [Pepcid] 20 mg PO BID 09/17/15 03/17/17 Levalbuterol HCl [Xopenex] 1.25 mg IH Q6 PRN 09/17/15 03/17/17 Aspirin [Aspirin Chewable] 81 mg PO DAILY 07/11/16 03/17/17 Insulin Aspart, Recombinant 0 units SC BID 03/17/17 03/17/17 [Novolog] Insulin Detemir [Levemir] 10 units SC HS 03/17/17 03/17/17 Melatonin [Melatonin] 5 mg PO DAILY 03/17/17 03/17/17 Warfarin [Coumadin] 6 mg PO 1800 03/17/17 03/17/17 Review of Systems - Review of Systems Constitutional: absent: Fatigue, Weight Change, Fevers Respiratory: absent: SOB, Cough, Sputum, Wheezing Cardiovascular: absent: Chest Pain, Palpitations, Edema, Calf Pain, ARREOLA, Orthopnea Gastrointestinal: absent: Abdominal Pain, Constipation, Diarrhea, Nausea, Vomiting Genitourinary Male: Hematuria. absent: Urinary Output Changes Skin: absent: Rash Physical Exam Vital Signs Temp Pulse Resp BP Pulse Ox 03/17/17 13:50 99.2 F 67 18 165/96 H 96 Temperature: Afebrile Blood Pressure: Normal Pulse: Regular Respiratory Rate: Normal Appearance: Positive for: Well-Appearing, Non-Toxic, Comfortable Pain Distress: None Mental Status: Positive for: Alert and Oriented X 3 - Systems Exam Head: Present: Atraumatic, Normocephalic Pupils: Present: PERRL Extroacular Muscles: Present: EOMI Conjunctiva: Present: Normal Mouth: Present: Moist Mucous Membranes Neck: Present: Normal Range of Motion Respiratory/Chest: Present: Clear to Auscultation, Good Air Exchange. No: Respiratory Distress Cardiovascular: Present: Regular Rate and Rhythm, Normal S1, S2. No: Murmurs Abdomen: Present: Other (mont[place] catheter with scant blood around meatus, draining blood tinged urine). No: Tenderness, Distention Neurological: Present: GCS=15 Medical Decision Making ED Course and Treatment: 03/17/17 14:38 -labs, ivf, ua and blood and urine cultures -consult Dr. Ly 03/17/17 14:47 Patient has uti with hx of MDR uti's. WBC elevated. Will need admission with urology and ID consult. 03/17/17 14:[address] Ly and he agrees with changing catheter. 03/17/17 14:[address] Frazier and requesting ID consult with Dr. Vigil, as well as Dr. Ly consult, with antibiotic coverage as previously (amikacin) until ID evaluate. - Lab Interpretations Lab Results: 03/17/17 14:20 03/17/17 14:20 Lab Results 03/17/17 14:20: PT 23.3 H, INR 2.16 H, APTT 39.0 H 03/17/17 14:20: Sodium 136, Potassium 4.1, Chloride 99, Carbon Dioxide 29, Anion Gap 12, BUN 15, Creatinine 0.7 L, Est GFR ( Amer) > 60, Est GFR ( Non-Af Amer) > 60, Random Glucose 167 H, Calcium 8.8, Total Bilirubin 0.5, AST 22, ALT 42, Alkaline Phosphatase 81, Total Protein 7.0, Albumin 3.7, Globulin 3.4, Albumin/Globulin Ratio 1.1 03/17/17 14:20: Urine Color Yellow, Urine Appearance Turbid, Urine pH 6.5, Ur Specific [place] 1.020, Urine Protein 100 H, Urine Glucose (UA) Negative, Urine Ketones Negative, Urine Blood Large H, Urine Nitrate Positive H, Urine Bilirubin Negative, Urine Urobilinogen 0.2, Ur Leukocyte Esterase Large H, Urine RBC Tntc, Urine WBC Tntc, Urine Bacteria Many 03/17/17 14:20: WBC 11.8 H D, RBC 5.78, Hgb 16.7 D, Hct 49.1, MCV 84.9 D, MCH 28.9, MCHC 34.0, RDW 13.6, Plt Count 210, MPV 10.2, Gran % 76.3 H, Lymph % (Auto ) 14.7 L, [place] % (Auto) 6.3 H, Eos % (Auto) 2.5, Baso % (Auto) 0.2, Gran # 9.03 H, Lymph # 1.7, [place] # 0.7 H, Eos # 0.3, Baso # 0.02 - Medication Orders Current Medication Orders: Amikacin Sulfate 500 mg/ (Sodium Chloride) 102 mls @ 204 mls/hr IVPB STAT STA PRN Reason: Protocol Stop: 03/17/17 15:27 Discontinued Medications Sodium Chloride (Sodium Chloride 0.9%) 500 mls @ 999 mls/hr IV .Q31M STA Stop: 03/17/17 14:39 Last Admin: 03/17/17 14:36 Dose: 999 mls/hr eMAR Start Stop Document 03/17/17 14:36 AD (Rec: 03/17/17 14:36 AD [facility] [id number]) Intravenous Solution Start Date 03/17/17 Start Time 14:36 Disposition/Present on Arrival - Present on Arrival Any Indicators Present on Arrival: No History of DVT/PE: No History of Uncontrolled Diabetes: No Urinary Catheter: Yes History of Decub. Ulcer: Yes History Surgical Site Infection Following: None - Disposition Have Diagnosis and Disposition been Completed?: Yes Diagnosis: Urinary catheter infection Disposition: HOSPITALIZED Disposition Time: 14:47 Patient Plan: Admission Patient Problems: Current Active Problems Problem Status Onset Urinary catheter infection Acute Condition: FAIR
[2017-03-17 14:42] LABS: BASO # 0.02 K/mm3 (0.0-2.0); BASO % 0.2 % (0.0-3.0); EOS # 0.3 (0.0-0.7); EOS % 2.5 % (1.5-5.0); GRAN # 9.03 (1.4-6.5); GRAN % 76.3 % (50.0-68.0); HEMATOCRIT 49.1 % (42.0-52.0); LYMPH # 1.7 (1.2-3.4); LYMPH % 14.7 % (22.0-35.0); MEAN CELL VOLUME 84.9 fl (80.0-105.0); MEAN CORPUSCULAR HEMOGLOBIN 28.9 pg (25.0-35.0); MEAN PLATELET VOLUME 10.2 fl (7.0-11.0); MONO # 0.7 (0.1-0.6); MONO % 6.3 % (1.0-6.0); PH,URINE 6.5 (4.7-8.0); RED CELL DISTRIBUTION WIDTH 13.6 % (11.5-14.5); URINE BILIRUBIN NEGATIVE (NEGATIVE); URINE BLOOD LARGE (NEGATIVE); URINE GLUCOSE (UA) NEGATIVE (NEGATIVE); URINE KETONE NEGATIVE (NEGATIVE); URINE LEUKOCYTE ESTERASE LARGE Leu/uL (NEGATIVE); URINE PROTEIN 100 mg/dL (<30 mg/dL); URINE UROBILINOGEN 0.2 E.U./dL (<1 E.U./dL); WHITE BLOOD COUNT 11.8 10^3/ul (4.5-11.0)
[2017-03-17 14:44] LABS: URINE APPEARANCE TURBID (CLEAR); URINE COLOR YELLOW (YELLOW)
[2017-03-17 14:45] LABS: URINE BACTERIA MANY (NEG); URINE RBC TNTC /hpf (0-2); URINE WBC TNTC /hpf (0-6)
[2017-03-17 14:50] LABS: ALB/GLOB RATIO 1.1 (1.1-1.8); ALKALINE PHOSPHATASE 81 U/L (38-126); ALT/SGPT 42 U/L (7-56); AST/SGOT 22 U/L (17-59); BILIRUBIN,TOTAL 0.5 mg/dL (0.2-1.3); BLOOD UREA NITROGEN 15 mg/dL (7-21); CALCIUM 8.8 mg/dL (8.4-10.5); CARBON DIOXIDE 29 mmol/L (21-33); CHLORIDE 99 mmol/L (98-107); GFR AFRICAN-AMERICAN > 60; GLUCOSE,RANDOM 167 mg/dL (70-110); POTASSIUM 4.1 mmol/L (3.6-5.0); SODIUM 136 mmol/L (132-148)
[2017-03-17 15:11] LABS: INR 2.16 (0.93-1.08)
[2017-03-17] MEDS ORDERED: Levalbuterol 1.25 MG/3 ML Inhal Soln UD IH PRN (16:53)
--- NOTE | 2017-03-17 17:22 | CP.PCM.CON ---
History of Present Illness - History of Present Illness History of Present Illness: Infectious Disease Consultation: March 17, 2017 56 yo male with morbid obesity [place] [facility] [place] seen several times in the detention over the course of 24 hours. The patient denies fevers, chills, nausea, vomiting, diarrhea, headaches, dizziness, chest pain, abdominal pain, melena, hematuria, hematemesis, hematochezia. The patient was admitted in January for sepsis at that time. PMHx: Congestive Heart Failure, Chronic Obstructive Pulmonary Disease, Morbid Obesity , Benign Neoplasm of Spine, Paraplegia, history of multiple UTIs, left eye blindness. PSHx: Laminectomy 03/2015, Catheter placement 02/2015 Allergies: PCN Social Hx: no tobacco, EtOH, or illicit drug use. [place] resident Active Medications Aspirin (Aspirin Chewable) 81 mg PO DAILY [facility] Famotidine (Pepcid) 20 mg PO BID [facility] Azithromycin (Zithromax 500mg In Ns) 500 mg in 250 mls @ 167 mls/hr IVPB DAILY [facility] Insulin Detemir (Levemir) 10 unit SC HS [facility] Levalbuterol HCl (Xopenex) 1.25 mg IH Q6 PRN PRN Reason: Shortness of Breath Metoprolol Tartrate (Lopressor) 25 mg PO BID [facility] Non-Formulary Medication (Melatonin [Melatonin]) 5 mg PO HS [facility] Warfarin Sodium (Coumadin) 6 mg PO 1800 [facility] PRN Reason: Protocol Family Hx: none given ROS: No fevers, chills, nausea, vomiting, diarrhea, headaches, dizziness, chest pain , melena, hematuria, hematemesis, hematochezia, depression, anxiety, vision loss , hearing loss, loss of consciousness, chest pain, abdominal pain. Past Patient History - Infectious Disease Hx of Infectious Diseases: None - Past Medical History & Family History Past Medical History?: Yes - Past Social History Smoking Status: Former Smoker - CARDIAC Hx Cardiac Disorders: Yes Hx Congestive Heart Failure: Yes Hx Hypertension: Yes - PULMONARY Hx Respiratory Disorders: Yes Hx Asthma: Yes Hx Chronic Obstructive Pulmonary Disease (COPD): Yes - NEUROLOGICAL Other/Comment: Paraplegia/ spinal tumor - HEENT Hx HEENT Problems: Yes Hx Blind: Yes (left eye) - RENAL Hx Chronic Kidney Disease: No - ENDOCRINE/METABOLIC Hx Endocrine Disorders: Yes Hx Diabetes Mellitus Type 2: Yes - HEMATOLOGICAL/ONCOLOGICAL Hx Blood Disorders: Yes Hx Anemia: Yes - INTEGUMENTARY Hx Dermatological Problems: No - MUSCULOSKELETAL/RHEUMATOLOGICAL Hx Musculoskeletal Disorders: No Hx Falls: No - GASTROINTESTINAL Hx Gastrointestinal Disorders: Yes Other/Comment: Morbid obesity, incontinent - GENITOURINARY/GYNECOLOGICAL Hx Genitourinary Disorders: Yes Hx Urinary Tract Infection: Yes - PSYCHIATRIC Hx Psychophysiologic Disorder: No Hx Substance Use: No - SURGICAL HISTORY Other/Comment: laminectomy - ANESTHESIA Hx Anesthesia: Yes Hx Anesthesia Reactions: No Hx Malignant Hyperthermia: No Meds Allergies/Adverse Reactions: Allergies Allergy/AdvReac Type Severity Reaction Status Date / Time Penicillins Allergy ANAPHYLAXIS Verified 03/17/17 13:51 - Medications Medications: Current Medications Aspirin (Aspirin Chewable) 81 mg PO DAILY [facility] Famotidine (Pepcid) 20 mg PO BID [facility] Insulin Detemir (Levemir) 10 unit SC HS [facility] Levalbuterol HCl (Xopenex) 1.25 mg IH Q6 PRN PRN Reason: Shortness of Breath Metoprolol Tartrate (Lopressor) 25 mg PO BID [facility] Non-Formulary Medication (Melatonin [Melatonin]) 5 mg PO HS [facility] Warfarin Sodium (Coumadin) 6 mg PO 1800 [facility] PRN Reason: Protocol Physical Exam - Constitutional Appears: Non-toxic, No Acute Distress, Chronically Ill - Head Exam Head Exam: ATRAUMATIC, NORMOCEPHALIC - Eye Exam Eye Exam: EOMI, PERRL Pupil Exam: NORMAL ACCOMODATION, PERRL - ENT Exam ENT Exam: Mucous Membranes Moist, Normal External Ear Exam, TM's Normal Bilaterally - Neck Exam Neck exam: Positive for: Full Rom, Normal Inspection - Respiratory Exam Respiratory Exam: Clear to Auscultation Bilateral, NORMAL BREATHING PATTERN. absent: Rales, Rhonchi, Wheezes - Cardiovascular Exam Cardiovascular Exam: REGULAR RHYTHM, RRR, +S1, +S2 - GI/Abdominal Exam GI & Abdominal Exam: Normal Bowel Sounds, Soft. absent: Distended, Tenderness - Extremities Exam Extremities exam: Positive for: joint swelling, pedal edema - Neurological Exam Neurological exam: Alert, CN II-XII Intact, Oriented x3 - Psychiatric Exam Psychiatric exam: Normal Affect, Normal Mood - Skin Skin Exam: Intact, Normal Color Results - Vital Signs Recent Vital Signs: Last Vital Signs Temp 99.2 F 03/17/17 13:50 Pulse 67 03/17/17 13:50 Resp 18 10/13/17 13:50 BP 165/96 H 03/17/17 13:50 Pulse Ox 96 03/17/17 13:50 - Labs Result Diagrams: 03/17/17 14:20 03/17/17 14:20 Assessment & Plan - Assessment and Plan (Free Text) Assessment: 56 yo male with morbid obesity, COPD, CHF, history of UTIs, left eye blindness, Paraplegia, and Benign Neoplasm of the spine presented with blood in the urine. The patient has mild leukocytosis. The patient's urine was turbid appearing with positive nitrates and large leukocyte esterase. Last hospitalization, the patient grew E. coli that was ESBL+. The patient also have a severe allergy to PCN. Supportive care. Give one dose of Gentamicin and start nitrofuratoin. Await final culture results. Thank you for allowing me to participate in the care of the patient, we will follow with you.
[2017-03-17 20:04] VITALS: BMI 60.8
[2017-03-17] MEDS ORDERED: Influenza Vaccine 60 mcg/0.5 mL SYR (4YR UP) IM ONE (20:04)
[2017-03-17] MEDS ORDERED: Pneumococcal 23-Valent Vaccine IM ONE (20:04)
[2017-03-17] MEDS: Insulin Reg-LOW-Coverage SC SCH (21:20)
[2017-03-17] MEDS: Insulin Detemir 100 units/ml Vial (Levemir) SC SCH (21:36)
[2017-03-18] MEDS: Insulin Reg-LOW-Coverage SC SCH ×4 (08:18→22:04)
[2017-03-18] MEDS ORDERED: Azithromycin 500 MG in Sodium Chloride 0.9% 250 ML IVPB SCH (10:00)
[2017-03-18] MEDS ORDERED: Azithromycin 500MG/NS 250ml 500 MG/250 ML BAG IVPB SCH (10:00)
--- NOTE | 2017-03-18 16:53 | HP ---
CHIEF COMPLAINT: Bleeding from the genitalia, painful area. HISTORY OF PRESENT ILLNESS: The patient is 56 years old, my private patient, resident of [facility], history of hypertension, diabetes mellitus, morbid obesity, urosepsis multiple times with chronic Ceron catheter, COPD, congestive heart failure, atrial fibrillation, paraplegia due to CVA, came to the emergency department for hematuria, Ceron was last changed in 02/[address] Ankit Ly. The patient was admitted 2 months ago for severe sepsis with acute renal failure due to probably complicated UTI associated with indwelling Ceron catheter, E. coli. Renal ultrasound was negative that moment. Now, readmitted the patient, IV antibiotics started, IV consult called. PAST MEDICAL HISTORY: Congestive heart failure, hypertension, asthma, COPD, left eye blindness, diabetes mellitus type 2, anemia, obesity, laminectomy. FAMILY HISTORY: Father and mother noncontributory. HABITS: Former smoker, no smoking, no drugs, no ethanol. ALLERGIES: THE PATIENT IS ALLERGIC TO PENICILLIN. HOME MEDICATIONS: Pepcid, Xopenex, aspirin, NovoLog, Levemir, melatonin, and Coumadin. REVIEW OF SYSTEMS: The patient was seen and examined at the bedside, looking comfortable. No nausea, vomiting, or diarrhea. No headache, no dizziness. No swelling of the legs. No abdominal pain. No constipation. Actually urinary output change. No rash. No fatigue. No weight change. No fever. PHYSICAL EXAMINATION: VITAL SIGNS: Temperature is 99.2, pulse 67, respiratory rate 18, blood pressure 165/96, and pulse oximetry 96%. HEENT: Head normocephalic and atraumatic. Eyes: PERRLA. Extraocular muscles are intact. Conjunctivae clear. Nose is patent. Mucous membrane is moist. NECK: Supple. No carotid bruit, JVD or thyromegaly. CHEST: Bilaterally symmetrical. HEART: S1 and S2 positive. LUNGS: Clear to auscultation. ABDOMEN: Soft. Bowel sounds positive. No organomegaly. EXTREMITIES: No edema. No cyanosis. NEUROLOGIC: The patient is awake and alert. Moving all 4 extremities. No focal deficit. LABORATORY DATA: White blood cells 11.8, hemoglobin 16.7, hematocrit 49.1, and platelets 210. Sodium 136, potassium 4.1, BUN 16, creatinine 0.7, and glucose 157. 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 The patient had penectomy, now Ceron catheter is from the hole. The patient is going once a month in Dr. Ly's office for changing of the Ceron catheter. We called again Dr. Ly, ID, and we will continue further treatment. Thalia Frazier MD MTDD
--- NOTE | 2017-03-18 17:57 | CP.PCM.PN ---
Subjective - Date & Time of Evaluation Date of Evaluation: 03/18/17 Time of Evaluation: 17:00 - Subjective Subjective: Infectious Disease Follow Up: March 18, 2017 56 yo male with morbid obesity sent to [facility] [place] for blood in urine seen several times in the shelter over the course of 24 hours. The patient denies fevers, chills, nausea, vomiting, diarrhea, headaches, dizziness, chest pain, abdominal pain, melena, hematuria, hematemesis, hematochezia. The patient was admitted in January for sepsis at that time. Urine culture is showing gram negative rods and Staph Aureus. Sensitivities pending. Objective - Vital Signs/Intake and Output Vital Signs (last 24 hours): Temp Pulse Resp BP Pulse Ox 97.5 F L 58 L 20 159/85 H 96 03/18/17 16:00 03/18/17 16:00 03/18/17 16:00 03/18/17 17:16 03/18/17 16:00 Intake and Output: 03/18/17 03/18/17 06:59 18:59 Intake Total 780 480 Output Total 850 Balance -70 480 - Medications Medications: Current Medications Aspirin (Aspirin Chewable) 81 mg PO DAILY [facility] Last Admin: 03/18/17 09:11 Dose: 81 mg Diphenhydramine HCl (Benadryl) 25 mg PO BID [facility] Last Admin: 03/18/17 17:17 Dose: 25 mg Famotidine (Pepcid) 20 mg PO BID [facility] Last Admin: 03/18/17 17:17 Dose: 20 mg Insulin Detemir (Levemir) 10 unit SC HS [facility] Last Admin: 03/17/17 21:36 Dose: Not Given Insulin Human Regular (Humulin R Low) 0 units SC ACHS [facility] PRN Reason: Protocol Last Admin: 03/18/17 16:46 Dose: Not Given Levalbuterol HCl (Xopenex) 1.25 mg IH Q6 PRN PRN Reason: Shortness of Breath Lisinopril (Zestril) 20 mg PO BID [facility] Last Admin: 03/18/17 17:15 Dose: 20 mg Metoprolol Tartrate (Lopressor) 25 mg PO BID [facility] Last Admin: 03/18/17 17:16 Dose: 25 mg Montelukast Sodium (Singulair) 10 mg PO DAILY [facility] Last Admin: 03/18/17 15:46 Dose: 10 mg Nitrofurantoin Macrocrystals (Macrobid) 100 mg PO Q12 [facility] Last Admin: 03/18/17 09:11 Dose: 100 mg Non-Formulary Medication (Melatonin [Melatonin]) 5 mg PO HS [facility] Warfarin Sodium (Coumadin) 6 mg PO 1800 [facility] PRN Reason: Protocol Last Admin: 03/18/17 17:16 Dose: 6 mg - Labs Labs: PT 23.3 Seconds (9.9-11.8) H 03/17/17 14:20 INR 2.16 (0.93-1.08) H 03/17/17 14:20 APTT 39.0 Seconds (23.7-30.8) H 03/17/17 14:20 - Constitutional Appears: Non-toxic, No Acute Distress, Chronically Ill - Head Exam Head Exam: ATRAUMATIC, NORMOCEPHALIC - Eye Exam Eye Exam: EOMI, PERRL Pupil Exam: NORMAL ACCOMODATION, PERRL - ENT Exam ENT Exam: Mucous Membranes Moist, Normal Exam - Neck Exam Neck Exam: Full ROM, Normal Inspection - Respiratory Exam Respiratory Exam: Clear to Ausculation Bilateral, NORMAL BREATHING PATTERN. absent: Rales, Rhonchi, Wheezes - Cardiovascular Exam Cardiovascular Exam: REGULAR RHYTHM, RRR, +S1, +S2 - GI/Abdominal Exam GI & Abdominal Exam: Soft, Normal Bowel Sounds. absent: Distended, Tenderness - Extremities Exam Extremities Exam: Full ROM, Normal Inspection - Neurological Exam Neurological Exam: Alert, Awake, CN II-XII Intact, Oriented x3 - Psychiatric Exam Psychiatric exam: Normal Affect, Normal Mood - Skin Skin Exam: Rash, Urticaria Additional comments: diffuse rash on entire body and facial flushing Assessment and Plan - Assessment and Plan (Free Text) Assessment: 56 yo male with morbid obesity, COPD, CHF, history of UTIs, left eye blindness, Paraplegia, and Benign Neoplasm of the spine presented with blood in the urine. The patient has mild leukocytosis. The patient's urine was turbid appearing with positive nitrates and large leukocyte esterase. Last hospitalization, the patient grew E. coli that was ESBL+. The patient also have a severe allergy to PCN. Supportive care. The patient with diffuse rash on the body with facial flushing (facial flushing was around on 03/17/2017). Azithromycin and Gentamicin stopped. Possible allergic reaction to Azithromycin? On nitrofuratoin. Urine cultures showing Staph Aureus and Gram negative rods. Await final culture results. Thank you for allowing me to participate in the care of the patient, we will follow with you.
[2017-03-18 18:28] LABS: URINE BILIRUBIN NEGATIVE (NEGATIVE); URINE BLOOD MODERATE (NEGATIVE); URINE GLUCOSE (UA) NEGATIVE (NEGATIVE); URINE KETONE NEGATIVE (NEGATIVE); URINE LEUKOCYTE ESTERASE LARGE Leu/uL (NEGATIVE); URINE PROTEIN NEGATIVE mg/dL (<30 mg/dL); URINE UROBILINOGEN 0.2 E.U./dL (<1 E.U./dL)
[2017-03-18 18:31] LABS: URINE APPEARANCE CLOUDY (CLEAR); URINE COLOR YELLOW (YELLOW)
[2017-03-18] MEDS: Vancomycin 1gm in NS 250ml 1 GM/250 ML BAG IVPB SCH (18:47)
[2017-03-18 19:08] LABS: URINE BACTERIA MOD (NEG); URINE EPITHELIAL CELLS 0 - 2 /hpf (0-5)
--- NOTE | 2017-03-18 20:16 | PN ---
SUBJECTIVE: The patient was seen and examined by the bedside, looking comfortable, having some petechial rash on the body. No nausea or vomiting. Fatigue is getting better. Cough is better. Shortness of breath is better. No headache. No dizziness. PHYSICAL EXAMINATION: VITAL SIGNS: Temperature 97.4, pulse 63, blood pressure 136/80 and respiratory rate 20. HEENT: Head is normocephalic and atraumatic. Eyes: PERRLA. Extraocular muscles are intact. Conjunctivae are clear. Nose is patent. Mucous membranes are moist. NECK: Supple. No carotid bruits. No JVD. No thyromegaly. CHEST: Bilaterally symmetrical. HEART: S1 and S2 positive. LUNGS: Clear to auscultation. ABDOMEN: Soft. Bowel sounds positive. No organomegaly. EXTREMITIES: No edema. No cyanosis. NEUROLOGIC: The patient is awake and alert, moving all 4 extremities. No focal deficit. MEDICATIONS: Amikacin, aspirin, Benadryl, Coumadin, insulin Levemir, Lopressor, Macrobid, melatonin, Singulair, Xopenex, Zestril, azithromycin. LABORATORY DATA: White blood cells is 11.8, hemoglobin 15.7, hematocrit 49.1, platelets 210. Sodium 136, potassium 4.1, BUN 15, and creatinine 0.7, glucose 142, 133, and 157. ASSESSMENT AND PLAN: The patient is 56 years old male with leukocytosis and urinary tract infection, antibiotics given. Today, looks like he has allergic reaction. We will hold antibiotics and we will call ID for that. Singulair and Benadryl given. Insulin-dependent diabetes mellitus, proteinuria, hematuria, morbid obesity, history of paraplegia, history of accident back tumor and surgery, severe congestive heart failure, chronic obstructive pulmonary disease, and benign neoplasm of the spine. We will continue antibiotics. 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 We will follow. Thalia Frazier MD [facility]ITAL[facility]ima
[2017-03-18] MEDS: Insulin Detemir 100 units/ml Vial (Levemir) SC SCH (22:06)
--- NOTE | 2017-03-18 22:49 | CP.PCM.PN ---
Subjective - Date & Time of Evaluation Date of Evaluation: 03/18/17 Time of Evaluation: 22:47 - Subjective Subjective: S:Requests something for sleep. Has no other complaints now. Medical record was reviewed. O: Last Vital Signs 3 Temp 97.5 F L 03/18/17 16:00 Pulse 58 L 03/18/17 16:00 Resp 20 03/18/17 16:00 BP 159/85 H 03/18/17 17:16 Pulse Ox 96 03/18/17 16:00 Awake ,alert , not in distress. LUNGS:Normal breathing pattern. A:Adjustment insomnia. P: Benadryl 25 mg PO stat. Objective - Vital Signs/Intake and Output Vital Signs (last 24 hours): Temp Pulse Resp BP Pulse Ox 97.5 F L 58 L 20 159/85 H 96 03/18/17 16:00 03/18/17 16:00 03/18/17 16:00 03/18/17 17:16 03/18/17 16:00 Intake and Output: 03/18/17 03/19/17 18:59 06:59 Intake Total 1200 Balance 1200 - Medications Medications: Current Medications Aspirin (Aspirin Chewable) 81 mg PO DAILY [facility] Last Admin: 03/18/17 09:11 Dose: 81 mg Diphenhydramine HCl (Benadryl) 25 mg PO BID [facility] Last Admin: 03/18/17 17:17 Dose: 25 mg Diphenhydramine HCl (Benadryl) 25 mg PO STAT [facility] Stop: 03/18/17 22:46 Famotidine (Pepcid) 20 mg PO BID [facility] Last Admin: 03/18/17 17:17 Dose: 20 mg Vancomycin HCl (Vancomycin 1gm) 1 gm in 250 mls @ 167 mls/hr IVPB Q12H [facility] PRN Reason: Protocol Last Admin: 03/18/17 18:47 Dose: 167 mls/hr Insulin Detemir (Levemir) 10 unit SC HS [facility] Last Admin: 03/18/17 22:06 Dose: Not Given Insulin Human Regular (Humulin R Low) 0 units SC ACHS [facility] PRN Reason: Protocol Last Admin: 03/18/17 22:04 Dose: Not Given Levalbuterol HCl (Xopenex) 1.25 mg IH Q6 PRN PRN Reason: Shortness of Breath Lisinopril (Zestril) 20 mg PO BID [facility] Last Admin: 03/18/17 17:15 Dose: 20 mg Metoprolol Tartrate (Lopressor) 25 mg PO BID [facility] Last Admin: 03/18/17 17:16 Dose: 25 mg Montelukast Sodium (Singulair) 10 mg PO DAILY [facility] Last Admin: 03/18/17 15:46 Dose: 10 mg Nitrofurantoin Macrocrystals (Macrobid) 100 mg PO Q12 [facility] Last Admin: 03/18/17 22:03 Dose: 100 mg Non-Formulary Medication (Melatonin [Melatonin]) 5 mg PO HS [facility] Warfarin Sodium (Coumadin) 6 mg PO 1800 [facility] PRN Reason: Protocol Last Admin: 03/18/17 17:16 Dose: 6 mg - Labs Labs: PT 23.3 Seconds (9.9-11.8) H 03/17/17 14:20 INR 2.16 (0.93-1.08) H 03/17/17 14:20 APTT 39.0 Seconds (23.7-30.8) H 03/17/17 14:20
--- NOTE | 2017-03-19 04:33 | CON ---
DATE: 03/18/2017 PULMONARY CONSULTATION REFERRING PHYSICIAN: Dr. Frazier. REASON FOR CONSULTATION: Chronic lung disease, may have obstructive sleep apnea syndrome, paraplegic. HISTORY OF PRESENT ILLNESS: This is a 56-year-old gentleman with past medical history significant for hypertension, chronic obstructive lung disease, diabetes, anemia, obesity, history of laminectomy, indwelling catheter, apparently has urethral bleed. In the emergency room, his Ceron catheter was changed by, I believe, Dr. Ankit Ly. In the past, he had recurrent UTI, last time had ESBL E. coli, presently admitted to the medical/surgical floor, lying on the bed, feels better, has a loud snoring, daytime sleepy and tired. No cough. No sputum production. No hemoptysis. PAST MEDICAL HISTORY: As per history of present illness. FAMILY HISTORY: No significant cardiopulmonary disease is reported. SOCIAL HISTORY: Stopped smoking many years ago. Denies any alcohol use. ALLERGIES: PENICILLIN. MEDICATIONS: He is on aspirin 81 mg daily, Benadryl 25 mg twice a day, Coumadin 6 mg will be given tonight, insulin coverage, Levemir 10 unit subcu at bedtime, metoprolol titrate 25 mg twice a day, nitrofurantoin 100 mg twice a day, melatonin 5 mg daily, Pepcid 20 mg twice a day, Singulair 10 mg daily, Xopenex inhaled q. 6 hours p.r.n., Zestril 20 mg twice a day, also received Amikacin 500 mg. REVIEW OF SYSTEMS: No headache. No rhinitis. Admitted to have snoring, daytime sleepy, and tired. No chest pain. No abdominal pain. He has hematuria. No leg pain. No leg swelling. PHYSICAL EXAMINATION: GENERAL: Lying on the bed, no acute distress. VITAL SIGNS: Temperature 98, heart rate is 58, respiratory rate is 20, blood pressure 159/85, pulse oximetry 96% on room air. HEENT: Moist mucous membrane. Crowed airway. Mallampati score is IV. NECK: Short and thick. LUNGS: Fair airflow with a few rhonchi. HEART: S1 and S2. ABDOMEN: Soft and nontender. No organomegaly. EXTREMITIES: There is no edema. Has a Ceron catheter. NEUROLOGIC: Awake, alert, and follows simple commands. LABORATORY DATA: Shows hemoglobin 16.7, hematocrit 49.1, WBC 11.8, platelet is 210. INR is 2.16, PTT 39. Sodium 136, potassium 4.1, chloride 99, bicarbonate 29, BUN 15, creatinine 0.7, glucose 167, calcium 8.8. AST 22, ALT 42, alkaline phosphatase 81, albumin is 3.7. Microbiology, blood cultures negative. Urine has gram-negative and gram-positive organisms. IMPRESSION AND PLAN: Chronic obstructive lung disease, may have sleep apnea syndrome, obesity, paraplegic, bladder outlet obstruction, has indwelling catheter, recurrent urinary tract infections, last infection was extended-spectrum beta-lactamases Escherichia coli, hypertension, congestive heart failure, diabetes, anemia, obesity. Agree with Dr. Frazier with present management. Continue bronchodilators. Keep head at [address] him on BiPAP 12/8 with 30% oxygen while sleeping. Careful with sedation. Gastric prophylaxis, anticoagulation. Thank you and we will follow with you. Yosef Dunbar MD
[2017-03-19] MEDS: Vancomycin 1gm in NS 250ml 1 GM/250 ML BAG IVPB SCH ×2 (06:02→17:30)
[2017-03-19 07:49] LABS: BASO # 0.03 K/mm3 (0.0-2.0); BASO % 0.3 % (0.0-3.0); EOS # 0.4 (0.0-0.7); EOS % 3.3 % (1.5-5.0); GRAN # 8.31 (1.4-6.5); GRAN % 71.7 % (50.0-68.0); HEMATOCRIT 47.3 % (42.0-52.0); LYMPH % 17.4 % (22.0-35.0); MEAN CELL VOLUME 86.3 fl (80.0-105.0); MEAN CORPUSCULAR HEMOGLOBIN 27.7 pg (25.0-35.0); MEAN CORPUSCULAR HGB CONC 32.1 g/dl (31.0-37.0); MEAN PLATELET VOLUME 10.8 fl (7.0-11.0); MONO # 0.8 (0.1-0.6); MONO % 7.3 % (1.0-6.0); RED CELL DISTRIBUTION WIDTH 13.6 % (11.5-14.5); WHITE BLOOD COUNT 11.6 10^3/ul (4.5-11.0)
[2017-03-19 07:59] LABS: INR 2.17 (0.93-1.08)
[2017-03-19 08:06] LABS: ALB/GLOB RATIO 1.1 (1.1-1.8); ALKALINE PHOSPHATASE 80 U/L (38-126); ALT/SGPT 41 U/L (7-56); AST/SGOT 30 U/L (17-59); BILIRUBIN,TOTAL 0.7 mg/dL (0.2-1.3); BLOOD UREA NITROGEN 14 mg/dL (7-21); CALCIUM 8.6 mg/dL (8.4-10.5); CARBON DIOXIDE 30 mmol/L (21-33); CHLORIDE 99 mmol/L (98-107); GFR AFRICAN-AMERICAN > 60; GLUCOSE,RANDOM 110 mg/dL (70-110); POTASSIUM 3.8 mmol/L (3.6-5.0); SODIUM 138 mmol/L (132-148); TOTAL PROTEIN 6.8 g/dL (5.8-8.3)
[2017-03-19] MEDS: Insulin Reg-LOW-Coverage SC SCH ×4 (08:46→21:18)
--- NOTE | 2017-03-19 17:35 | CP.PCM.PN ---
Subjective - Date & Time of Evaluation Date of Evaluation: 03/19/17 Time of Evaluation: 15:00 - Subjective Subjective: Infectious Disease Follow Up: March 19, 2017 56 yo male with morbid obesity sent to [facility] [place] for blood in urine seen several times in the [facility] over the course of 24 hours. The patient denies fevers, chills, nausea, vomiting, diarrhea, headaches, dizziness, chest pain, abdominal pain, melena, hematuria, hematemesis, hematochezia. The patient was admitted in January for sepsis at that time. Urine culture is showing gram negative rods and Staph Aureus. Sensitivities pending. Rash has resolved in the body... still present to a lesser degree on the face. Reaction to Azithromycin? The facial skin is now peeling as the facial rash is improving. Patient with no complaints at this time. Objective - Vital Signs/Intake and Output Vital Signs (last 24 hours): Temp Pulse Resp BP Pulse Ox 97.8 F 64 18 163/97 H 96 03/19/17 16:00 03/19/17 16:00 03/19/17 16:00 03/19/17 16:00 03/19/17 16:00 Intake and Output: 03/19/17 03/19/17 06:59 18:59 Intake Total 860 660 Output Total 1500 900 Balance -640 -240 - Medications Medications: Current Medications Aspirin (Aspirin Chewable) 81 mg PO DAILY [facility] Last Admin: 03/19/17 09:34 Dose: 81 mg Diphenhydramine HCl (Benadryl) 25 mg PO BID [facility] Last Admin: 03/19/17 09:34 Dose: Not Given Famotidine (Pepcid) 20 mg PO BID [facility] Last Admin: 03/19/17 09:33 Dose: 20 mg Vancomycin HCl (Vancomycin 1gm) 1 gm in 250 mls @ 167 mls/hr IVPB Q12H [facility] PRN Reason: Protocol Last Admin: 03/19/17 06:02 Dose: 167 mls/hr Insulin Detemir (Levemir) 10 unit SC HS [facility] Last Admin: 03/18/17 22:06 Dose: Not Given Insulin Human Regular (Humulin R Low) 0 units SC ACHS [facility] PRN Reason: Protocol Last Admin: 03/19/17 16:14 Dose: Not Given Levalbuterol HCl (Xopenex) 1.25 mg IH Q6 PRN PRN Reason: Shortness of Breath Lisinopril (Zestril) 20 mg PO BID [facility] Last Admin: 03/19/17 09:33 Dose: 20 mg Metoprolol Tartrate (Lopressor) 25 mg PO BID [facility] Last Admin: 03/19/17 09:33 Dose: 25 mg Montelukast Sodium (Singulair) 10 mg PO DAILY [facility] Last Admin: 03/19/17 09:33 Dose: 10 mg Nitrofurantoin Macrocrystals (Macrobid) 100 mg PO Q12 [facility] Last Admin: 03/19/17 09:34 Dose: 100 mg Non-Formulary Medication (Melatonin [Melatonin]) 5 mg PO HS [facility] Last Admin: 03/18/17 22:00 Dose: Not Given Warfarin Sodium (Coumadin) 6 mg PO 1800 [facility] PRN Reason: Protocol Last Admin: 03/18/17 17:16 Dose: 6 mg - Labs Labs: 03/19/17 07:41 03/19/17 07:41 PT 23.4 Seconds (9.9-11.8) H 03/19/17 07:41 INR 2.17 (0.93-1.08) H 03/19/17 07:41 APTT 39.0 Seconds (23.7-30.8) H 03/17/17 14:20 - Constitutional Appears: Non-toxic, No Acute Distress, Chronically Ill - Head Exam Head Exam: ATRAUMATIC, NORMOCEPHALIC Additional comments: facial erythema improving... skin peeling on face. - Eye Exam Eye Exam: EOMI, PERRL Pupil Exam: NORMAL ACCOMODATION, PERRL - ENT Exam ENT Exam: Mucous Membranes Moist, Normal External Ear Exam, TM's Normal Bilaterally - Neck Exam Neck Exam: Full ROM, Normal Inspection - Respiratory Exam Respiratory Exam: Clear to Ausculation Bilateral, NORMAL BREATHING PATTERN. absent: Rales, Rhonchi, Wheezes - Cardiovascular Exam Cardiovascular Exam: REGULAR RHYTHM, RRR, +S1, +S2 - GI/Abdominal Exam GI & Abdominal Exam: Soft, Normal Bowel Sounds. absent: Distended, Tenderness - Extremities Exam Extremities Exam: Full ROM, Normal Inspection - Neurological Exam Neurological Exam: Alert, Awake, CN II-XII Intact, Oriented x3 - Psychiatric Exam Psychiatric exam: Normal Affect, Normal Mood - Skin Skin Exam: Intact, Normal Color Assessment and Plan - Assessment and Plan (Free Text) Assessment: 56 yo male with morbid obesity, COPD, CHF, history of UTIs, left eye blindness, Paraplegia, and Benign Neoplasm of the spine presented with blood in the urine. The patient has mild leukocytosis. The patient's urine was turbid appearing with positive nitrates and large leukocyte esterase. Last hospitalization, the patient grew E. coli that was ESBL+. The patient also have a severe allergy to PCN. Supportive care. The patient with diffuse rash on the body with facial flushing (facial flushing was around on 03/17/2017). Azithromycin and Gentamicin stopped. Possible allergic reaction to Azithromycin? On nitrofuratoin. Urine cultures showing Staph Aureus and Gram negative rods. Full identification showing MRSA and Proteus. On Vancomycin IV and will start Cipro. Stop Nitrofuratoin. Thank you for allowing me to participate in the care of the patient, we will follow with you.
--- NOTE | 2017-03-19 19:33 | PN ---
SUBJECTIVE: The patient seen and examined at the bedside, looking comfortable. No nausea, vomiting, or diarrhea. No hematuria or hematochezia. No swelling of the legs. No chest pain or palpitation. No headache. No dizziness. No shortness of breath. PHYSICAL EXAMINATION: VITAL SIGNS: Temperature 97.6, pulse 81, blood pressure 151/81, and respiratory rate 18. HEENT: Head: Normocephalic and atraumatic. Eyes: PERRLA. Extraocular muscles are intact. Conjunctivae are clear. Nose is patent. Mucous membranes are moist. NECK: Supple. No carotid bruits. No JVD or thyromegaly. CHEST: Bilaterally symmetrical. HEART: S1 and S2 positive. LUNGS: Clear to auscultation. ABDOMEN: Soft. Bowel sounds are positive. No organomegaly. EXTREMITIES: No edema. No cyanosis. NEUROLOGIC: The patient is awake and alert. Moving all 4 extremities. No focal deficits. MEDICATIONS: Aspirin, Benadryl, Coumadin, insulin Levemir, Lopressor, Cardizem, melatonin, Pepcid, Singulair, vancomycin, Xopenex, Zestril. LABORATORY DATA: White blood 11.6, hemoglobin 15.2, hematocrit 47.3, platelets 212. Sodium 138, potassium 3.8, BUN 14, creatinine 0.9, glucose 115 and 108. ASSESSMENT AND PLAN: The patient is a 56-year-old male with leukocytosis, hyperglycemia, history of hypertension, chronic obstructive lung disease, diabetes mellitus, obesity, history of laminectomy, indwelling catheter, came for urethral bleed. Ceron catheter was changed in the ER. ID is on the case, giving antibiotics, bladder outlet obstruction, recurrent urinary tract infection, continue bronchodilators, that is why I put the patient on BiPAP 05/12 with 30% oxygen while sleeping. GI prophylaxis, repeat labs. We will follow. Thalia Frazier MD
[2017-03-19] MEDS: Ciprofloxacin 400mg/200ml D5W 400 MG/200 ML BAG IVPB SCH (21:15)
[2017-03-19] MEDS: Insulin Detemir 100 units/ml Vial (Levemir) SC SCH (21:22)
--- NOTE | 2017-03-19 22:56 | CP.PCM.PN ---
Subjective - Date & Time of Evaluation Date of Evaluation: 03/19/17 Time of Evaluation: 22:55 - Subjective Subjective: S:Patient had complained of itching around IV site. He requested benadry. Benadryl was ordered. When I went to see patient he was sleeping. O: Last Vital Signs 3 Temp 97.8 F 03/19/17 16:00 Pulse 62 03/19/17 23:00 Resp 18 03/19/17 16:00 BP 151/85 H 03/19/17 17:29 Pulse Ox 96 03/19/17 16:00 Asleep. LUNGS:Normal breathing pattern. A:Itching. P:Benadryl 25 mg PO x 1. Objective - Vital Signs/Intake and Output Vital Signs (last 24 hours): Temp Pulse Resp BP Pulse Ox 97.8 F 64 18 151/85 H 96 03/19/17 16:00 03/19/17 16:00 03/19/17 16:00 03/19/17 17:29 03/19/17 16:00 Intake and Output: 03/19/17 03/20/17 18:59 06:59 Intake Total 660 Output Total 900 Balance -240 - Medications Medications: Current Medications Aspirin (Aspirin Chewable) 81 mg PO DAILY [facility] Last Admin: 03/19/17 09:34 Dose: 81 mg Diphenhydramine HCl (Benadryl) 25 mg PO BID [facility] Last Admin: 03/19/17 17:29 Dose: 25 mg Famotidine (Pepcid) 20 mg PO BID [facility] Last Admin: 03/19/17 17:28 Dose: 20 mg Vancomycin HCl (Vancomycin 1gm) 1 gm in 250 mls @ 167 mls/hr IVPB Q12H [facility] PRN Reason: Protocol Last Admin: 03/19/17 17:30 Dose: 167 mls/hr Ciprofloxacin (Cipro 400mg/200ml Dsw) 400 mg in 200 mls @ 133.3 mls/hr IVPB Q12 [facility] PRN Reason: Protocol Last Admin: 03/19/17 21:15 Dose: 133.3 mls/hr Insulin Detemir (Levemir) 10 unit SC HS [facility] Last Admin: 03/19/17 21:22 Dose: 10 unit Insulin Human Regular (Humulin R Low) 0 units SC ACHS [facility] PRN Reason: Protocol Last Admin: 03/19/17 21:18 Dose: Not Given Levalbuterol HCl (Xopenex) 1.25 mg IH Q6 PRN PRN Reason: Shortness of Breath Lisinopril (Zestril) 20 mg PO BID [facility] Last Admin: 03/19/17 17:29 Dose: 20 mg Metoprolol Tartrate (Lopressor) 25 mg PO BID [facility] Last Admin: 03/19/17 17:29 Dose: 25 mg Montelukast Sodium (Singulair) 10 mg PO DAILY [facility] Last Admin: 03/19/17 09:33 Dose: 10 mg Non-Formulary Medication (Melatonin [Melatonin]) 5 mg PO HS [facility] Last Admin: 03/19/17 21:15 Dose: Not Given Warfarin Sodium (Coumadin) 6 mg PO 1800 [facility] PRN Reason: Protocol Last Admin: 03/19/17 17:29 Dose: 6 mg - Labs Labs: 03/19/17 07:41 03/19/17 07:41 PT 23.4 Seconds (9.9-11.8) H 03/19/17 07:41 INR 2.17 (0.93-1.08) H 03/19/17 07:41 APTT 39.0 Seconds (23.7-30.8) H 03/17/17 14:20
--- NOTE | 2017-03-19 23:19 | PN ---
PULMONARY PROGRESS NOTE REFERRING PHYSICIAN: Dr. Frazier. SUBJECTIVE: The patient is lying in the bed, head at 45 degrees. Night was unremarkable. Tolerated BIPAP well. No headache, no rhinitis. No nausea, no vomiting, no diarrhea, no more hematuria. No leg swelling. OBJECTIVE: GENERAL: In no acute distress. VITAL SIGNS: Temperature is 98, heart rate is 64, respiratory rate is 18, blood pressure 151/85, and pulse ox 96% on room air. HEENT: Moist mucous membrane. Crowded airway. Mallampati score is IV. NECK: Supple. No JVD. LUNGS: Fair airflow with few rhonchi. HEART: S1 and S2. ABDOMEN: Soft, nontender. No organomegaly. He has a Ceron catheter draining clear urine. EXTREMITIES: There is no edema. NEUROLOGIC: Awake and alert. Follow simple commands. MEDICATIONS: He is on aspirin 81 mg daily, Benadryl 25 mg twice a day, Cipro 400 mg IV twice a day, Coumadin 6 mg was given today, insulin coverage, Levemir 10 units subcu at bedtime, metoprolol tartrate 25 mg twice a day, melatonin 5 mg at bedtime, Pepcid 20 mg twice a day, Singulair 10 mg daily, vancomycin 1 g IV q.12 hours, Xopenex inhaled q.6 hours and Zestril 20 mg twice a day. LABORATORY DATA: Hemoglobin is 15.2, hematocrit 47.3, WBC 11.6, platelet is 212. INR is 2.17. Sodium 138, potassium 3.8, chloride 99, bicarbonate 30, BUN 14, creatinine 0.9, glucose 110, calcium 8.6. AST 30, ALT 41, alkaline phosphatase is 80, albumin is 3.5. Urine has Proteus mirabilis and MRSA. Blood culture, there is no growth. IMPRESSION AND PLAN: Chronic obstructive lung disease, may have sleep apnea syndrome; obesity; paraplegic; bladder outlet obstruction, has an indwelling catheter; urinary tract infections, status post hematuria; hypertension; congestive heart failure; diabetes and anemia. From pulmonary point of view, doing okay. Keep head at 45 degrees. Aspiration precaution, sleep apnea precaution. Encourage BiPAP use. Careful with sedation. Gastric prophylaxis, anticoagulation. Thank you and we will follow with you. Yosef Dunbar MD
[2017-03-20] MEDS: Vancomycin 1gm in NS 250ml 1 GM/250 ML BAG IVPB SCH ×2 (05:34→18:07)
[2017-03-20 07:04] LABS: INR 2.36 (0.93-1.08)
[2017-03-20] MEDS: Insulin Reg-LOW-Coverage SC SCH ×4 (08:18→21:46)
[2017-03-20 08:21] VITALS: RESP 20
[2017-03-20 10:44] LABS: MEAN CORPUSCULAR HEMOGLOBIN 28.5 pg (25.0-35.0); MEAN CORPUSCULAR HGB CONC 32.8 g/dl (31.0-37.0); MEAN PLATELET VOLUME 11.2 fl (7.0-11.0); RED CELL DISTRIBUTION WIDTH 13.7 % (11.5-14.5); WHITE BLOOD COUNT 12.1 10^3/ul (4.5-11.0)
[2017-03-20] MEDS: Ciprofloxacin 400mg/200ml D5W 400 MG/200 ML BAG IVPB SCH ×2 (11:02→21:46)
--- NOTE | 2017-03-20 18:15 | CP.PCM.PN ---
Subjective - Date & Time of Evaluation Date of Evaluation: 03/20/17 Time of Evaluation: 17:00 - Subjective Subjective: Infectious Disease Follow Up: March 20, 2017 56 yo male with morbid obesity sent [place] [facility] [place] for blood in urine seen several times in the skilled nursing over the course of 24 hours. The patient denies fevers, chills, nausea, vomiting, diarrhea, headaches, dizziness, chest pain, abdominal pain, melena, hematuria, hematemesis, hematochezia. The patient was admitted in January for sepsis at that time. Urine culture is showing gram negative rods and Staph Aureus. Sensitivities pending. Rash has resolved in the body... still present to a lesser degree on the face. Reaction to Azithromycin? The facial skin is now peeling as the facial rash is improving. The patient did have itching at the IV site last night. Patient with no other complaints at this time. Objective - Vital Signs/Intake and Output Vital Signs (last 24 hours): Temp Pulse Resp BP Pulse Ox 98.7 F 70 20 132/81 98 03/20/17 16:00 03/20/17 17:56 03/20/17 16:00 03/20/17 17:56 03/20/17 16:00 Intake and Output: 03/20/17 03/20/17 06:59 18:59 Intake Total 790 Output Total 700 Balance 90 - Medications Medications: Current Medications Aspirin (Aspirin Chewable) 81 mg PO DAILY [facility] Last Admin: 03/20/17 09:06 Dose: 81 mg Diphenhydramine HCl (Benadryl) 25 mg PO BID [facility] Last Admin: 03/20/17 17:55 Dose: 25 mg Famotidine (Pepcid) 20 mg PO BID [facility] Last Admin: 03/20/17 17:55 Dose: 20 mg Vancomycin HCl (Vancomycin 1gm) 1 gm in 250 mls @ 167 mls/hr IVPB Q12H [facility] PRN Reason: Protocol Last Admin: 03/20/17 05:34 Dose: 167 mls/hr Ciprofloxacin (Cipro 400mg/200ml Dsw) 400 mg in 200 mls @ 133.3 mls/hr IVPB Q12 [facility] PRN Reason: Protocol Last Admin: 03/20/17 11:02 Dose: 133.3 mls/hr Insulin Detemir (Levemir) 10 unit SC HS [facility] Last Admin: 03/19/17 21:22 Dose: 10 unit Insulin Human Regular (Humulin R Low) 0 units SC ACHS [facility] PRN Reason: Protocol Last Admin: 03/20/17 17:47 Dose: Not Given Levalbuterol HCl (Xopenex) 1.25 mg IH Q6 PRN PRN Reason: Shortness of Breath Lisinopril (Zestril) 20 mg PO BID [facility] Last Admin: 03/20/17 17:55 Dose: 20 mg Metoprolol Tartrate (Lopressor) 25 mg PO BID [facility] Last Admin: 03/20/17 17:56 Dose: 25 mg Montelukast Sodium (Singulair) 10 mg PO DAILY [facility] Last Admin: 03/20/17 09:06 Dose: 10 mg Non-Formulary Medication (Melatonin [Melatonin]) 5 mg PO HS [facility] Last Admin: 03/19/17 21:15 Dose: Not Given Warfarin Sodium (Coumadin) 6 mg PO 1800 [facility] PRN Reason: Protocol Last Admin: 03/20/17 17:55 Dose: 6 mg - Labs Labs: 03/20/17 10:15 03/19/17 07:41 PT 25.5 Seconds (9.9-11.8) H 03/20/17 06:51 INR 2.36 (0.93-1.08) H 03/20/17 06:51 APTT 39.0 Seconds (23.7-30.8) H 03/17/17 14:20 - Constitutional Appears: Non-toxic, No Acute Distress, Chronically Ill - Head Exam Head Exam: ATRAUMATIC, NORMOCEPHALIC Additional comments: facial erythema improving... skin peeling on face. - Eye Exam Eye Exam: EOMI, PERRL Pupil Exam: NORMAL ACCOMODATION, PERRL - ENT Exam ENT Exam: Mucous Membranes Moist, Normal External Ear Exam, TM's Normal Bilaterally - Neck Exam Neck Exam: Full ROM, Normal Inspection - Respiratory Exam Respiratory Exam: Clear to Ausculation Bilateral, NORMAL BREATHING PATTERN. absent: Rales, Rhonchi, Wheezes - Cardiovascular Exam Cardiovascular Exam: REGULAR RHYTHM, RRR, +S1, +S2 - GI/Abdominal Exam GI & Abdominal Exam: Soft, Normal Bowel Sounds. absent: Distended, Tenderness - Extremities Exam Extremities Exam: Full ROM, Normal Inspection - Neurological Exam Neurological Exam: Alert, Awake, CN II-XII Intact, Oriented x3 - Psychiatric Exam Psychiatric exam: Normal Affect, Normal Mood - Skin Skin Exam: Intact, Normal Color Assessment and Plan - Assessment and Plan (Free Text) Assessment: 56 yo male with morbid obesity, COPD, CHF, history of UTIs, left eye blindness, Paraplegia, and Benign Neoplasm of the spine presented with blood in the urine. The patient has mild leukocytosis. The patient's urine was turbid appearing with positive nitrates and large leukocyte esterase. Last hospitalization, the patient grew E. coli that was ESBL+. The patient also have a severe allergy to PCN. Supportive care. The patient with diffuse rash on the body with facial flushing (facial flushing was around on 03/17/2017). Azithromycin and Gentamicin stopped. Possible allergic reaction to Azithromycin? On nitrofuratoin. Urine cultures showing Staph Aureus and Gram negative rods. Full identification showing MRSA and Proteus. On Vancomycin IV and Cipro at this time for the UTI with MSSA and Proteus infection. Consider 7-10 day course of treatment. Thank you for allowing me to participate in the care of the patient, we will follow with you.
[2017-03-20] MEDS: Insulin Detemir 100 units/ml Vial (Levemir) SC SCH (21:47)
--- NOTE | 2017-03-20 21:55 | PCM.URO ---
Urology Progress Note - Subjective Abdominal Pain: Yes Hematuria: Yes (uti) - Objective Lab Studies: Reviewed (gu plans: antibiotics will discuss possible cystoscopy / / full note dictated #[id number]) Lab Results Last 24 Hours: Laboratory Results - last 24 hr 03/20/17 03/20/17 03/20/17 06:51 07:21 10:15 WBC 12.1 H RBC 5.29 Hgb 15.1 Hct 46.0 MCV 87.0 MCH 28.5 MCHC 32.8 RDW 13.7 Plt Count 194 MPV 11.2 H PT 25.5 H INR 2.36 H POC Glucose (mg/dL) 110 03/20/17 03/20/17 03/20/17 11:17 17:30 21:02 WBC RBC Hgb Hct MCV MCH MCHC RDW Plt Count MPV PT INR POC Glucose (mg/dL) 181 H 98 132 H Intake & Output: Intake & Output 03/20/17 03/20/17 03/21/17 06:59 18:59 06:59 Intake Total 790 720 Output Total 700 1100 Balance 90 -380 Intake: IV 550 Right Hand 550 Oral 240 720 Output: Urine 700 1100 Urethral (Ceron) 700 1100 Other: # Bowel Movements 1 1 Vital Signs: Vital Signs - 24 hr 03/19/17 03/20/17 03/20/17 23:00 08:21 09:05 Temperature 97.4 F L Pulse Rate 62 66 86 Respiratory 20 Rate Blood Pressure 152/86 H 152/86 H O2 Sat by Pulse 96 Oximetry 03/20/17 03/20/17 03/20/17 16:00 17:55 17:56 Temperature 98.7 F Pulse Rate 70 70 70 Respiratory 20 Rate Blood Pressure 134/81 132/81 132/81 O2 Sat by Pulse 98 Oximetry
--- NOTE | 2017-03-21 00:33 | PN ---
PULMONARY PROGRESS NOTE REFERRING PHYSICIAN: Thalia Frazier MD SUBJECTIVE: The patient is lying in the bed, head at 45 degrees. Night was unremarkable. Tolerated BIPAP well. No headache, no rhinitis. No nausea, no vomiting, no diarrhea, no leg swelling reported. OBJECTIVE: GENERAL: In no acute distress. VITAL SIGNS: Temperature is 98, heart rate is 70, respiratory rate is 20, blood pressure 132/81, and pulse ox 98% on room air. HEENT: Moist mucous membrane. Crowded airway. Mallampati score is IV. NECK: Supple. No JVD. LUNGS: Fair airflow with few rhonchi. HEART: S1 and S2. ABDOMEN: Soft, nontender. No organomegaly. EXTREMITIES: No edema. NEUROLOGIC: Awake and alert. Follow simple commands. MEDICATIONS: He is on aspirin 81 mg daily, Benadryl 25 mg twice a day, Cipro 400 mg IV twice a day, Coumadin 6 mg will be given tonight, insulin coverage, Levemir 10 units subcu at bedtime, metoprolol tartrate 25 mg twice a day, melatonin 5 mg at bedtime, Pepcid 20 mg twice a day, Singulair 10 mg daily, vancomycin 1 g IV q. 12 hours, Xopenex inhaled q. 6 hours p.r.n. and Zestril 20 mg twice a day. LABORATORY DATA: Shows hemoglobin is 15.1, hematocrit 46.0, WBC 12.1, platelet count is 194. INR is 2.36. Blood sugar is 98. IMPRESSION AND PLAN: Chronic obstructive lung disease, may have sleep apnea syndrome; obesity; paraplegic; bladder outlet obstruction, has an indwelling catheter, admitted with urinary tract infections, hematuria, seen by urology; hypertension; congestive heart failure; diabetes and anemia. We will continue CPAP while sleeping, keep head at 45 degrees. Careful with sedation. Antibiotic as per infectious disease. If possible get him out of bed to chair. Thank you and we will follow with you. Yosef Dunbar MD
--- NOTE | 2017-03-21 02:58 | PN ---
DATE: SUBJECTIVE: The patient is a 56-year-old male. The patient was seen and examined on the bedside, looking comfortable. No nausea, vomiting, or diarrhea. No hematuria or hematochezia. No swelling of the legs. No chest pain. No palpitation. No headache, no dizziness. PHYSICAL EXAMINATION VITAL SIGNS: Temperature 98.7, pulse 70, blood pressure 132/81 and respiratory rate 20. HEENT: Head is normocephalic and atraumatic. Eyes; PERRLA. Extraocular muscles intact. Conjunctivae are clear. Nose patent. Mucous membrane moist. NECK: Supple. No carotid bruit. No JVD or thyromegaly. CHEST: Bilaterally symmetrical. CARDIOPULMONARY: S1, S2 positive. LUNGS: Clear to auscultation. ABDOMEN: Soft. Bowel sounds present. No organomegaly. EXTREMITIES: No edema, no cyanosis. NEUROLOGIC: The patient is awake, alert. MEDICATIONS: Aspirin, Benadryl, Cipro, Coumadin, insulin, Levemir, Lopressor, melatonin, Pepcid, Singulair, vancomycin, Xopenex, and Zestril. LABORATORY DATA: White blood cell is 12.1, hemoglobin 15.1, hematocrit 46.0, platelets 194. Sugar 132 and 98. ASSESSMENT AND PLAN: Mr. Marcus Valdovinos is a 56-year-old male with urinary tract infection. Antibiotics given. Started rash, now rash is resolved, still present lesser degree on the face. Reaction to the erythromycin. The facial skin is now peeling, facial rash is improving. Getting Benadryl, Singulair. The patient has history of comorbid obesity, chronic obstructive pulmonary disease, congestive heart failure, left eye blindness, paraplegia, history of neoplasm of the spine. The patient also has severe ALLERGY TO PENICILLIN, now on nitrofurantoin. Urine culture shows staphylococcus aureus and gram-negative rods. Full identification showing methicillin-resistant Staphylococcus aureus and Proteus, on vancomycin and Cipro at this time for urinary tract infection with methicillin-resistant Staphylococcus aureus and Proteus infection. Consider 7 days of treatment. Gastrointestinal and deep venous thrombosis prophylaxis, repeat labs. We will follow up. Thalia Frazier MD [facility] # [id number]
--- NOTE | 2017-03-21 05:47 | CON ---
UROLOGY CONSULTATION DATE: 03/20/2017 REASON FOR CONSULTATION: Urinary retention. HISTORY OF PRESENT ILLNESS: This is a pleasant gentleman, 56-year-old lives in a shelter at [facility], I know the patient quite well. Periodically, he comes to the office and we changed his catheter on a monthly basis. I got a phone call on 03/17/2017 and advised the shelter if that the catheter was not working well, we sent the patient to emergency room. I then spoke to emergency room doctor who then inserted Ceron catheter. This urology consult regarding further recommendations. See the plans listed below. All on the chart, we note the presence of the Infectious Disease consultation, he is also under the care Dr. Frazier. PAST MEDICAL AND SURGICAL HISTORY: As listed on the chart. Otherwise unremarkable, nothing changed from the urology standpoint. MEDICATIONS: See chart. ALLERGIES: HE IS ALLERGIC PENICILLIN. PHYSICAL EXAMINATION GENERAL: A well-nourished male, he is currently resting comfortably. VITAL SIGNS: Within normal limits, . ABDOMEN: Soft. Catheter is in place, draining. LABORATORY DATA: Noted. DIAGNOSES: Urinary retention, voiding dysfunction, recurrent urinary tract infection. PLAN: For now maintain this Ceron catheter, it is a new Ceron catheter. We will discuss with and Dr. Frazier, possibility for cystoscopy and further evaluation and then further plans will follow. So in the meantime, maintain Ceron catheter. Continue the antibiotic regimen and then further plans will follow Thank you for the urology consultation. Ankit Ly MD
[2017-03-21] MEDS: Vancomycin 1gm in NS 250ml 1 GM/250 ML BAG IVPB SCH (06:18)
[2017-03-21 07:33] LABS: MEAN CELL VOLUME 86.3 fl (80.0-105.0); MEAN CORPUSCULAR HGB CONC 32.4 g/dl (31.0-37.0); MEAN PLATELET VOLUME 10.4 fl (7.0-11.0); RED CELL DISTRIBUTION WIDTH 13.6 % (11.5-14.5); WHITE BLOOD COUNT 9.9 10^3/ul (4.5-11.0)
[2017-03-21 07:42] LABS: INR 2.42 (0.93-1.08)
[2017-03-21 07:47] LABS: BLOOD UREA NITROGEN 14 mg/dL (7-21); CALCIUM 8.5 mg/dL (8.4-10.5); CARBON DIOXIDE 32 mmol/L (21-33); CHLORIDE 100 mmol/L (95-110); GFR AFRICAN-AMERICAN > 60; GLUCOSE,RANDOM 105 mg/dL (70-110); POTASSIUM 3.8 mmol/L (3.6-5.0); SODIUM 137 mmol/L (132-148)
[2017-03-21 08:06] VITALS: PULSE 82; TEMP 97.9; O2SAT 96
[2017-03-21] MEDS: Insulin Reg-LOW-Coverage SC SCH ×2 (08:15→12:11)
[2017-03-21] MEDS: Ciprofloxacin 400mg/200ml D5W 400 MG/200 ML BAG IVPB SCH (10:22)
[2017-03-21 10:23] VITALS: BP 148/84
--- NOTE | 2017-03-21 15:32 | CP.PCM.PN ---
Subjective - Date & Time of Evaluation Date of Evaluation: 03/21/17 Time of Evaluation: 14:00 - Subjective Subjective: Infectious Disease Follow Up: March 21, 2017 56 yo male with morbid obesity sent to [facility] for blood in urine seen several times in the snf over the course of 24 hours. The patient denies fevers, chills, nausea, vomiting, diarrhea, headaches, dizziness, chest pain, abdominal pain, melena, hematuria, hematemesis, hematochezia. The patient was admitted in January for sepsis at that time. Urine culture is showing Proteus and MRSA. Rash has resolved in the body... still present to a lesser degree on the face. Reaction to Azithromycin? The facial skin is now peeling as the facial rash is improving. The patient did have itching at the IV site a few nights ago. On Vancomycin and Cipro. Patient with no other complaints at this time. Objective - Vital Signs/Intake and Output Vital Signs (last 24 hours): Temp Pulse Resp BP Pulse Ox 97.9 F 82 20 148/84 96 03/21/17 08:05 03/21/17 10:20 03/21/17 08:05 03/21/17 10:20 03/21/17 08:05 Intake and Output: 03/21/17 03/21/17 06:59 18:59 Intake Total 1080 Output Total 1700 Balance -620 - Medications Medications: Current Medications Aspirin (Aspirin Chewable) 81 mg PO DAILY [facility] Last Admin: 03/21/17 12:11 Dose: 81 mg Diphenhydramine HCl (Benadryl) 25 mg PO BID [facility] Last Admin: 03/21/17 10:19 Dose: 25 mg Famotidine (Pepcid) 20 mg PO BID [facility] Last Admin: 03/21/17 10:19 Dose: 20 mg Vancomycin HCl (Vancomycin 1gm) 1 gm in 250 mls @ 167 mls/hr IVPB Q12H GREG PRN Reason: Protocol Last Admin: 03/21/17 06:18 Dose: 167 mls/hr Ciprofloxacin (Cipro 400mg/200ml Dsw) 400 mg in 200 mls @ 133.3 mls/hr IVPB Q12 GREG PRN Reason: Protocol Last Admin: 03/21/17 10:22 Dose: 133.3 mls/hr Insulin Detemir (Levemir) 10 unit SC HS [facility] Last Admin: 03/20/17 21:47 Dose: 10 unit Insulin Human Regular (Humulin R Low) 0 units SC ACHS [facility] PRN Reason: Protocol Last Admin: 03/21/17 12:11 Dose: 1 units Levalbuterol HCl (Xopenex) 1.25 mg IH Q6 PRN PRN Reason: Shortness of Breath Lisinopril (Zestril) 20 mg PO BID [facility] Last Admin: 03/21/17 10:19 Dose: 20 mg Metoprolol Tartrate (Lopressor) 25 mg PO BID [facility] Last Admin: 03/21/17 10:20 Dose: 25 mg Montelukast Sodium (Singulair) 10 mg PO DAILY [facility] Last Admin: 03/21/17 10:19 Dose: 10 mg Non-Formulary Medication (Melatonin [Melatonin]) 5 mg PO HS [facility] Last Admin: 03/19/17 21:15 Dose: Not Given Warfarin Sodium (Coumadin) 6 mg PO 1800 [facility] PRN Reason: Protocol Last Admin: 03/20/17 17:55 Dose: 6 mg - Labs Labs: 03/21/17 07:27 03/21/17 07:27 PT 26.1 Seconds (9.9-11.8) H 03/21/17 07:27 INR 2.42 (0.93-1.08) H 03/21/17 07:27 APTT 39.0 Seconds (23.7-30.8) H 03/17/17 14:20 - Constitutional Appears: Non-toxic, No Acute Distress, Chronically Ill - Head Exam Head Exam: ATRAUMATIC, NORMOCEPHALIC Additional comments: facial erythema improving... skin peeling on face. - Eye Exam Eye Exam: EOMI, PERRL Pupil Exam: NORMAL ACCOMODATION, PERRL - ENT Exam ENT Exam: Mucous Membranes Moist, Normal External Ear Exam, TM's Normal Bilaterally - Neck Exam Neck Exam: Full ROM, Normal Inspection - Respiratory Exam Respiratory Exam: Clear to Ausculation Bilateral, NORMAL BREATHING PATTERN. absent: Rales, Rhonchi, Wheezes - Cardiovascular Exam Cardiovascular Exam: REGULAR RHYTHM, RRR, +S1, +S2 - GI/Abdominal Exam GI & Abdominal Exam: Soft, Normal Bowel Sounds. absent: Distended, Tenderness - Neurological Exam Neurological Exam: Alert, Awake, CN II-XII Intact, Oriented x3 - Psychiatric Exam Psychiatric exam: Normal Affect, Normal Mood - Skin Skin Exam: Intact, Normal Color Assessment and Plan - Assessment and Plan (Free Text) Assessment: 56 yo male with morbid obesity, COPD, CHF, history of UTIs, left eye blindness, Paraplegia, and Benign Neoplasm of the spine presented with blood in the urine. The patient has mild leukocytosis. The patient's urine was turbid appearing with positive nitrates and large leukocyte esterase. Last hospitalization, the patient grew E. coli that was ESBL+. The patient also have a severe allergy to PCN. Supportive care. The patient with diffuse rash on the body with facial flushing (facial flushing was around on 03/17/2017). Azithromycin and Gentamicin stopped. Possible allergic reaction to Azithromycin? On nitrofuratoin. Urine cultures showing Staph Aureus and Gram negative rods. Full identification showing MRSA and Proteus. On Vancomycin IV and Cipro at this time for the UTI with MRSA and Proteus infection. Consider 10 day course of treatment. Thank you for allowing me to participate in the care of the patient, we will follow with you.
--- NOTE | 2017-03-22 13:40 | PQF GENQUE ---
This form is a permanent part of the medical record DR. LIMA, For coding purposes and accuracy. Please document if the patient's UTI due to his chronic montague catheter. Clarification of your documentation is requested to better reflect the severity of illness and intensity of treatment of your patient. Indicators present CALL ID PL? [] Specify: [] [] Specify: [] [] Specify: [] [] Specify: [] Location in the medical record that reflects the above clinical findings: [] Treatment Provided: [] PHYSICIAN'S RESPONSE Based on your medical judgment of the clinical indicators outlined above please clarify the following: [] Practitioner response [] If unable to determine, please check the box, sign and date. Present On Admission (POA) Indicator: [] Present at the time of admission [] Not present at the time of admission [] Clinically Undetermined In responding to this query, please exercise your independent professional judgment. The fact that a question is asked does not imply that any particular answer is desired or expected. Thank you for your clarification on this documentation. If you have any questions please call:[ ] * Thank you, [ X ] CHELSEA clinical exercise physiologist TORITO
--- NOTE | 2017-03-22 21:55 | DS ---
CHIEF COMPLAINT: Bleeding from the genitalia, painful area. HISTORY OF PRESENT ILLNESS: Mr. Marcus Valdovinos is a 56-year-old male. He is resident of [facility]. He has history of hypertension, diabetes mellitus, morbid obesity, urosepsis multiple times, has UTI, has indwelling Ceron catheter, COPD, congestive heart failure, atrial fibrillation, came to [facility] Room because of genitalia bleeding and in Emergency Room Ceron was changed by Dr. Bill Ly. The patient was admitted. Antibiotics were started. Consult called with Dr. Vigil, GI; Dr. Ly, urologist; and Dr. Dunbar. The patient felt better, discharged back to [facility] with IV antibiotics. To complete with that course, Dr. Vigil will see the patient in [place]. PAST MEDICAL HISTORY: As above. Congestive heart failure, hypertension, asthma, COPD, left eye blindness, diabetes mellitus type 2, obesity, and laminectomy. FAMILY HISTORY: Father and mother noncontributory. HABITS: Former smoker. No smoking. No drugs. No ethanol now. ALLERGIES; THE PATIENT IS ALLERGIC TO PENICILLIN. HOME MEDICATIONS: Reviewed by me. REVIEW OF SYSTEMS: The patient was seen and examined at the bedside, looking comfortable. No nausea, vomiting, or diarrhea. No hematuria or hematochezia. No headache or dizziness. No fever. No chills. PHYSICAL EXAMINATION: VITAL SIGNS: Temperature 97.9, pulse 52, blood pressure 114/84, and respiratory rate 20. HEENT: Head is normocephalic, atraumatic. Eyes; PERRLA. Extraocular muscles intact. Conjunctivae clear. Nose patent. NECK: Supple. No carotid bruits, JVD, or thyromegaly. CHEST: Bilaterally symmetrical. HEART: S1 and S2 positive. LUNGS: Clear to auscultation. ABDOMEN: Soft. Bowel sounds present. No organomegaly. EXTREMITIES: No edema. No cyanosis. NEUROLOGICAL: The patient is awake and alert, doing conversation. MEDICATIONS: Aspirin, Benadryl, Cipro, Coumadin, insulin, Levemir, Lopressor, melatonin, Pepcid, Singulair, vancomycin, Xopenex, and Zestril. LABORATORY DATA: White blood cell 9.9, on admission it was 11.8; hemoglobin 14.9; hematocrit 46.0; and platelets 185. Sodium 137, potassium 3.8, BUN 14, creatinine 0.8, and glucose 155. ASSESSMENT AND PLAN: Mr. Marcus Valdovinos is a 56-year-old male with proteinuria, hematuria, urinary tract infection, uncontrolled diabetes mellitus, history of leukocytosis that is now improved, urosepsis, history of obesity, chronic obstructive pulmonary disease, congestive heart failure, repeated urinary tract infection, left eye blindness, paraplegia, benign neoplasm of the spine. He presented with hematuria. The patient was given antibiotics. He is allergic to penicillin and he has rash on the body with facial flushing around 03/17/2017. Azithromycin and vancomycin stopped, possibly allergic to azithromycin. Urine culture shows Staphylococcus aureus and gram-negative rods. shows MRSA and Proteus. Now on vancomycin and Cipro IV; with MRSA and Proteus infection, I will consider 10 days of course. The patient was doing better, transferred to [facility], midline given. We will finish antibiotics there and repeat labs there. Thalia Frazier MD [place]
--- NOTE | 2017-03-24 10:23 | PQF GENQUE ---
This form is a permanent part of the medical record DR. DALLAS, For coding purposes and accuracy. Please verify if the patient's UTI is due to his chronic montague catheter. Clarification of your documentation is requested to better reflect the severity of illness and intensity of treatment of your patient. Indicators present [X] Specify: [blood in urine] [X] Specify: [positive urine cultures for proteus and MRSA] [] Specify: [] [] Specify: [] Location in the medical record that reflects the above clinical findings: [] Treatment Provided: [IV antibiotics] PHYSICIAN'S RESPONSE Based on your medical judgment of the clinical indicators outlined above please clarify the following: [X] Practitioner response [] If unable to determine, please check the box, sign and date. Present On Admission (POA) Indicator: [X] Present at the time of admission [] Not present at the time of admission [] Clinically Undetermined In responding to this query, please exercise your independent professional judgment. The fact that a question is asked does not imply that any particular answer is desired or expected. Thank you for your clarification on this documentation. If you have any questions please call:[ ] * Thank you, [X ] CHELSEA research chemical engineer TORITO
== END 2017-03-21 15:57 | DRG 690 ==
LOC: ED 13:49 → ERH 14:57 → 5RNO 16:32
PROVIDERS: ADMIT Internal Medicine; ATTEND Internal Medicine
DX: N39.0 Urinary tract infection, site not specified (principal); I11.0 Hypertensive heart disease with heart failure; I50.9 Heart failure, unspecified; G82.20 Paraplegia, unspecified; B95.62 Methicillin resistant Staphylococcus aureus infection as the cause of diseases classified elsewhere; B96.4 Proteus (mirabilis) (morganii) as the cause of diseases classified elsewhere; J44.9 Chronic obstructive pulmonary disease, unspecified; I48.91 Unspecified atrial fibrillation; E66.01 Morbid (severe) obesity due to excess calories; E11.65 Type 2 diabetes mellitus with hyperglycemia; R31.9 Hematuria, unspecified; H54.62 Unqualified visual loss, left eye, normal vision right eye; D64.9 Anemia, unspecified; N32.0 Bladder-neck obstruction; R80.9 Proteinuria, unspecified; F51.02 Adjustment insomnia; L29.9 Pruritus, unspecified; R21 Rash and other nonspecific skin eruption; Z79.4 Long term (current) use of insulin; Z87.440 Personal history of urinary (tract) infections; Z79.01 Long term (current) use of anticoagulants; Z87.891 Personal history of nicotine dependence; Z88.0 Allergy status to penicillin

== ENCOUNTER 2017-05-26 14:08 | Inpatient (IN) | payer MEDICARE, MEDICAID ==
[2017-05-26 14:08] VITALS: PULSE 90
[2017-05-26 14:12] VITALS: BMI 55.3
[2017-05-26] MEDS ORDERED: Ciprofloxacin 400mg/200ml D5W 400 MG/200 ML BAG IVPB STA (16:27)
[2017-05-26 16:29] LABS: VENOUS BLOOD GAS BASE EXCESS 5.8 mmol/L (0.0-2.0); VENOUS BLOOD GAS PO2 100 mm/Hg (30-55); VENOUS BLOOD PH 7.43 (7.32-7.43)
[2017-05-26 16:31] LABS: BASO # 0.02 K/mm3 (0.0-2.0); BASO % 0.1 % (0.0-3.0); EOS # 0.3 (0.0-0.7); EOS % 2.2 % (1.5-5.0); GRAN # 11.47 (1.4-6.5); GRAN % 77.9 % (50.0-68.0); HEMOGLOBIN 16.6 g/dL (14.0-18.0); LYMPH # 1.9 (1.2-3.4); MEAN CELL VOLUME 85.5 fl (80.0-105.0); MEAN CORPUSCULAR HEMOGLOBIN 28.7 pg (25.0-35.0); MEAN CORPUSCULAR HGB CONC 33.5 g/dl (31.0-37.0); MEAN PLATELET VOLUME 11.2 fl (7.0-11.0); MONO % 6.8 % (1.0-6.0); RBC 5.79 10^6/uL (3.5-6.1); RED CELL DISTRIBUTION WIDTH 13.9 % (11.5-14.5); URINE BILIRUBIN NEGATIVE (NEGATIVE); URINE BLOOD LARGE (NEGATIVE); URINE GLUCOSE (UA) NEGATIVE (NEGATIVE); URINE LEUKOCYTE ESTERASE LARGE Leu/uL (NEGATIVE); URINE NITRATE POSITIVE (NEGATIVE); URINE PROTEIN NEGATIVE mg/dL (<30 mg/dL); URINE UROBILINOGEN 0.2 E.U./dL (<1 E.U./dL); WHITE BLOOD COUNT 14.8 10^3/ul (4.5-11.0)
--- NOTE | 2017-05-26 16:33 | ED PDOC ---
Arrival/HPI - General Chief Complaint: Male Genitourinary Time Seen by Provider: 05/26/17 15:26 Historian: Patient - History of Present Illness Narrative History of Present Illness (Text): 05/26/17 16:30 Patient is a 56 yo male, from [facility], hx of paraplegia, hx of copd , hx of chf, hx of chronic indwelling mccauley, hx of UTI in past, presents to ED for evaluation for mccauley catheter change as well as for pain around perineum. Patient also reports that during the past week they have been noting blood in his bowel movements. He denies chest pain or shortness of breath. Denies nausea. Denies abdominal pain. Time/Duration: Prior to Arrival Symptom Onset: Gradual Past Medical History - Infectious Disease Hx of Infectious Diseases: None - Cardiac Hx Pacemaker: No - Pulmonary Hx Respiratory Disorders: Yes (USED TO SMOKE CIGARETTES 1 PK LASTS 3 WEEKS.) Hx Asthma: Yes Hx Chronic Obstructive Pulmonary Disease (COPD): Yes - Neurological Hx Neurological Disorder: Yes (SYNCOPE) HX Cerebrovascular Accident: Yes Other/Comment: Paraplegia/ spinal tumor-WITH SX - HEENT Hx HEENT Disorder: Yes Hx Blind: Yes (left eye) - Renal Hx Renal Disorder: Yes (UROSEPSIS MULTIPLE TIMES. MCCAULEY CATH. NEUROPATHIC BLADDER) - Endocrine/Metabolic Hx Endocrine Disorders: Yes Hx Diabetes Mellitus Type 2: Yes - Hematological/Oncological Hx Cancer: No - Integumentary Hx Dermatological Disorder: Yes Other/Comment: ABDOMINAL FOLDS MASD,BILATERAL LE SKIN DRYNESS,LARGE THIN FLAKES, LIGHT BROWN SKIN DISCOLORATION,RIGHT BIG TOE WITH FLUSHED SKIN,SWELLING.STATES NAIL WAS CLIPPED AND NEVER HEALED. - Musculoskeletal/Rheumatological Hx Falls: No - Gastrointestinal Hx Gastrointestinal Disorders: Yes Other/Comment: Morbid obesity, incONTINENT - Genitourinary/Gynecological Hx Genitourinary Disorders: Yes Hx Incontinence: Yes Hx Urinary Tract Infection: Yes Other/Comment: chronic Urinary catheter - Psychiatric Hx Psychophysiologic Disorder: No Hx Substance Use: No - Surgical History Hx Mastectomy: No - Anesthesia Hx Anesthesia: Yes Hx Anesthesia Reactions: No Hx Malignant Hyperthermia: No Family/Social History Family/Social History: Unknown Family HX Smoking Status: Former Smoker Hx Alcohol Use: Yes (OCCASIONALLY) Hx Substance Use: No Allergies/Home Meds Allergies/Adverse Reactions: Allergies Penicillins Allergy (Verified 03/17/17 17:15) ANAPHYLAXIS Home Medications: Home Meds Medication Instructions Recorded Confirmed Famotidine [Pepcid] 20 mg PO BID 09/17/15 05/26/17 Levalbuterol HCl [Xopenex] 1.25 mg IH Q6 PRN 09/17/15 05/26/17 Aspirin [Aspirin Chewable] 81 mg PO DAILY 07/11/16 05/26/17 Insulin Detemir [Levemir] 10 units SC HS 03/17/17 05/26/17 Melatonin 5 mg PO DAILY 03/17/17 05/26/17 Warfarin [Coumadin] 6 mg PO 1800 03/17/17 05/26/17 Acetaminophen [Tylenol 325mg tab] 650 mg PO Q4H PRN 05/26/17 05/26/17 Review of Systems - Review of Systems Constitutional: Fatigue. absent: Fevers Eyes: Vision Changes (chronic) ENT: absent: Hearing Changes Respiratory: absent: SOB Cardiovascular: absent: Chest Pain Gastrointestinal: Abdominal Pain Genitourinary Male: Urinary Output Changes, Other (has pain around catheter site , has chronic mccauley) Musculoskeletal: Back Pain. absent: Neck Pain Skin: absent: Rash Neurological: absent: Headache, Dizziness Endocrine: absent: Polyuria Psychiatric: absent: Depression Physical Exam Vital Signs Reviewed: Yes Vital Signs Temp Pulse Resp BP Pulse Ox 05/26/17 16:25 99.0 F 67 18 128/89 95 05/26/17 14:08 98.8 F 69 18 130/91 H 94 L Temperature: Afebrile Appearance: Positive for: Uncomfortable Pain Distress: Mild Mental Status: Positive for: Alert and Oriented X 3 Finger Stick Blood Glucose: 116 - Systems Exam Head: Present: Atraumatic Pupils: Present: Other (blind left eye) Conjunctiva: No: Injected Mouth: Present: Moist Mucous Membranes Pharnyx: No: ERYTHEMA Neck: Present: Normal Range of Motion. No: Meningeal Signs Respiratory/Chest: Present: Clear to Auscultation. No: Respiratory Distress Cardiovascular: Present: Regular Rate and Rhythm, Murmurs Abdomen: Present: Distention (obese). No: Tenderness, Peritoneal Signs Rectal: No: Gross Blood Genitourinary Male: Present: Other (patient with mccauley catheter in place that is draining with couldy urine, unable to visualize head of penis there is edema surrounding perimeum and testicle, but no testicular pain) Upper Extremity: No: Cyanosis Lower Extremity: Present: Edema Neurological: Present: Other (paraplegia) Skin: Present: Warm Psychiatric: Present: Alert, Normal Concentration Medical Decision Making ED Course and Treatment: Patient's prior visits were assessed and reviewed. Patient's case reviewed with Олег Mcclain. Patient with indwelling mccauley which is draining, although unable to visualized the patient's meatus, there is some edema around mccauley insertion site although no pus or erythema noted. Patient on Coumadin, there is hx of rectal bleeding for past week. No active bleeding noted on exam, CT ordered for lower abdominal pain noted on re-exam. 05/26/17 18:12 CT of Abdomen/Pelvis reviewed by radiologist, shows: FINDINGS: LOWER THORAX: Cardiomegaly. Bibasilar dependent atelectasis. 4 millimeter left lower lobe pulmonary nodule (series 3, image 21). LIVER: Unremarkable. No gross lesion or ductal dilatation. GALLBLADDER AND BILE DUCTS: Unremarkable. PANCREAS: Unremarkable. No gross lesion or ductal dilatation. SPLEEN: Unremarkable. ADRENALS: Unremarkable. No mass. KIDNEYS AND URETERS: Ptosis of the right kidney. No hydronephrosis. No solid mass. VASCULATURE: Unremarkable. No aortic aneurysm. BOWEL: Markedly limited evaluation due to suboptimal technique. Questionable hazy change surrounding the sigmoid colon. APPENDIX: Unremarkable. Normal appendix. PERITONEUM: Markedly limited evaluation due to suboptimal technique. Bilateral fat containing inguinal hernias. No free fluid. No free air. LYMPH NODES: No enlarged lymph nodes. A few nonspecific prominent pericolonic lymph nodes are (series 3, images 154 and 165). BLADDER: Unremarkable. REPRODUCTIVE: Unremarkable. BONES: Spinal and pelvic degenerative changes. OTHER FINDINGS: None. IMPRESSION: Markedly limited evaluation due to suboptimal technique. Questionable hazy change surrounding the sigmoid colon raises the possibility of sigmoid colitis. 05/26/17 18:20 Patient will be admitted for hx of gi bleeding on Coumadin. Currently no active bleeding, and cv stable, will admit to remote tele. Patient placed on abx. Will consult Dr. Ly to assess mccauley. Case d/w Dr. Frazier in ED at 1800, accepts admission. - Lab Interpretations Lab Results: 05/26/17 16:11 05/26/17 16:11 Lab Results 05/26/17 16:40: Blood Type Confirm A POSITIVE 05/26/17 16:11: Blood Type A POSITIVE, Antibody Screen Negative, BBK History Checked No verified bt 05/26/17 16:11: pO2 100 H, VBG pH 7.43, VBG pCO2 47.0, VBG HCO3 31.2 H, VBG Total CO2 32.6 H, VBG O2 Sat (Calc) 98.8 H, VBG Base Excess 5.8 H, VBG Potassium 4.1, Sodium 134.0, Chloride 100.0, Glucose 127 H, Lactate 1.1, FiO2 21.0, Venous Blood Potassium 4.1 05/26/17 16:11: Urine Color Yellow, Urine Appearance Sl cloudy, Urine pH 6.0, Ur Specific [place] <= 1.005, Urine Protein Negative, Urine Glucose (UA) Negative, Urine Ketones Negative, Urine Blood Large H, Urine Nitrate Positive H , Urine Bilirubin Negative, Urine Urobilinogen 0.2, Ur Leukocyte Esterase Large H, Urine RBC 1 - 3, Urine WBC 20 - 25, Ur Epithelial Cells 0 - 2, Urine Bacteria Mod 05/26/17 16:11: Sodium 135, Chloride 100, Potassium 4.0, Carbon Dioxide 27, Anion Gap 12, BUN 14, Creatinine 0.8, Est GFR ( Amer) > 60, Est GFR (Non- Af Amer) > 60, Random Glucose 124 H, Calcium 8.6, Total Bilirubin 0.4, AST 20, ALT 27, Alkaline Phosphatase 78, Total Protein 6.9, Albumin 3.5, Globulin 3.5, Albumin/Globulin Ratio 1.0 L 05/26/17 16:11: PT 36.4 H, INR 3.26 H, APTT 45.2 H 05/26/17 16:11: WBC 14.8 H D, RBC 5.79, Hgb 16.6, Hct 49.5, MCV 85.5, MCH 28.7, MCHC 33.5, RDW 13.9, Plt Count 191, MPV 11.2 H, Gran % 77.9 H, Lymph % (Auto) 13.0 L, [place] % (Auto) 6.8 H, Eos % (Auto) 2.2, Baso % (Auto) 0.1, Gran # 11.47 H , Lymph # 1.9, [place] # 1.0 H, Eos # 0.3, Baso # 0.02 05/26/17 16:06: POC Glucose (mg/dL) 116 H - RAD Interpretation Radiology Orders: 05/26/17 15:41 ABD & PELVIS W/O PO OR IV CONT [CT] Stat - Medication Orders Current Medication Orders: Metronidazole (Flagyl) 500 mg in 100 mls @ 100 mls/hr IVPB STAT STA PRN Reason: Protocol Stop: 05/26/17 19:06 Discontinued Medications Ciprofloxacin (Cipro 400mg/200ml Dsw) 400 mg in 200 mls @ 133.3 mls/hr IVPB STAT STA PRN Reason: Protocol Stop: 05/26/17 17:57 Last Admin: 05/26/17 17:11 Dose: 133.3 mls/hr eMAR Start Stop Document 05/26/17 17:11 [email or web address] (Rec: 05/26/17 17:11 [email or web address] [id number] Intravenous Solution Start Date 05/26/17 Start Time 17:11 End Date 05/26/17 Disposition/Present on Arrival - Present on Arrival Any Indicators Present on Arrival: Yes History of DVT/PE: No History of Uncontrolled Diabetes: No Urinary Catheter: Yes History of Decub. Ulcer: No History Surgical Site Infection Following: None - Disposition Have Diagnosis and Disposition been Completed?: Yes Diagnosis: UTI (urinary tract infection), Elevated INR, Colitis, GI bleeding Disposition: HOSPITALIZED Disposition Time: 18:28 Patient Plan: Admission Patient Problems: Current Active Problems Problem Status Onset Colitis Acute Elevated INR Acute GI bleeding Acute UTI (urinary tract infection) Acute Condition: FAIR Forms: [employer] (Belizean)
[2017-05-26 16:39] LABS: ALBUMIN 3.5 g/dL (3.0-4.8); ALT/SGPT 27 U/L (7-56); AST/SGOT 20 U/L (17-59); BLOOD UREA NITROGEN 14 mg/dL (7-21); CALCIUM 8.6 mg/dL (8.4-10.5); GFR AFRICAN-AMERICAN > 60; GFR NON-AFRICAN AMERICAN > 60; INR 3.26 (0.93-1.08); PARTIAL THROMBOPLASTIN TIME 45.2 Seconds (25.1-36.5); PROTHROMBIN TIME 36.4 SECONDS (9.4-12.5)
[2017-05-26 16:41] LABS: URINE APPEARANCE SL CLOUDY (CLEAR); URINE COLOR YELLOW (YELLOW)
[2017-05-26 16:44] LABS: URINE BACTERIA MOD (NEG); URINE EPITHELIAL CELLS 0 - 2 /hpf (0-5); URINE WBC 20 - 25 /hpf (0-6)
--- NOTE | 2017-05-26 17:03 | CT ---
PROCEDURE: CT Abdomen and Pelvis without intravenous contrast HISTORY: pelvic/rectal pain, abdominal wall erythema and pa COMPARISON: None. TECHNIQUE: Contiguous images were obtained from the domes of the diaphragms to upper thighs without the administration intravenous contrast. Oral contrast was not administered. Radiation dose: Total exam DLP = 1749.7 mGy-cm. This CT exam was performed using one or more of the following dose reduction techniques: Automated exposure control, adjustment of the mA and/or kV according to patient size, and/or use of iterative reconstruction technique. FINDINGS: LOWER THORAX: Cardiomegaly. Bibasilar dependent atelectasis. 4 millimeter left lower lobe pulmonary nodule (series 3, image 21). LIVER: Unremarkable. No gross lesion or ductal dilatation. GALLBLADDER AND BILE DUCTS: Unremarkable. PANCREAS: Unremarkable. No gross lesion or ductal dilatation. SPLEEN: Unremarkable. ADRENALS: Unremarkable. No mass. KIDNEYS AND URETERS: Ptosis of the right kidney. No hydronephrosis. No solid mass. VASCULATURE: Unremarkable. No aortic aneurysm. BOWEL: Markedly limited evaluation due to suboptimal technique. Questionable hazy change surrounding the sigmoid colon. APPENDIX: Unremarkable. Normal appendix. PERITONEUM: Markedly limited evaluation due to suboptimal technique. Bilateral fat containing inguinal hernias. No free fluid. No free air. LYMPH NODES: No enlarged lymph nodes. A few nonspecific prominent pericolonic lymph nodes are (series 3, images 154 and 165). BLADDER: Unremarkable. REPRODUCTIVE: Unremarkable. BONES: Spinal and pelvic degenerative changes. OTHER FINDINGS: None. IMPRESSION: Markedly limited evaluation due to suboptimal technique. Questionable hazy change surrounding the sigmoid colon raises the possibility of sigmoid colitis.
[2017-05-26] MEDS ORDERED: metroNIDAZOLE IV 500 mg/100 ml 500 MG/100 ML BAG IVPB STA (18:07)
[2017-05-26] MEDS: Insulin Detemir 100 units/ml Vial (Levemir) SC SCH (22:30)
[2017-05-26 23:07] LABS: INR 3.01 (0.93-1.08); PROTHROMBIN TIME 33.6 SECONDS (9.4-12.5)
[2017-05-27] MEDS: Albuterol-Ipratrop 3 mg / 0.5 (3 ml) UD IH SCH ×4 (01:37→20:05)
--- NOTE | 2017-05-27 03:58 | HP ---
CHIEF COMPLAINT: GI bleeding. HISTORY OF PRESENT ILLNESS: Mr. Marcus Valdovinos is a 56-year-old male from [facility], history of paraplegia, history of COPD, congestive heart failure, chronic indwelling Ceron catheter, history of bunionectomy, and history of UTI in the past, came to the Emergency Room for evaluation of Ceron catheter change as well as pain around the perineum and blood from the rectum as per [facility]. Actually, [facility] called me for blood in the rectum then I told them to stat PT/INR, but meanwhile, the patient came to the Emergency Room. Denies chest pain. No nausea, vomiting, or diarrhea. No abdominal pain. PAST MEDICAL HISTORY: Asthma, COPD, syncope, paraplegia, spinal tumor, blind from the left eye, multiple times urosepsis, Ceron catheter, neuropathic bladder, diabetes mellitus type 2, history of urinary incontinence. FAMILY HISTORY: Father, mother noncontributory. HABITS: Former smoker, now no smoking. Alcohol;yes occasionally, substance abuse, no. ALLERGIES: THE PATIENT IS ALLERGIC WITH PENICILLIN. HOME MEDICATIONS: Pepcid, Xopenex, aspirin, Levemir, melatonin, Coumadin, acetaminophen. REVIEW OF SYSTEMS: The patient seen and examined at the bedside in ER, looking comfortable, complaining about pain in the genitalia. No nausea, vomiting. No headache. No dizziness. No fever. No chills. History of GI bleeding and . No vision change. No hearing change. Complaining of shortness of breath. No chest pain. No abdominal pain. No back pain, neck pain. No rash. No depression or polyuria. PHYSICAL EXAMINATION VITAL SIGNS: Temperature 99, pulse 67, respiratory rate 18, blood pressure 128/89; and pulse oximetry 95%. HEENT: Head is normocephalic and atraumatic. Eyes; PERRLA. Extraocular muscles are intact. Conjunctivae clear. Nose patent. NECK: Supple. No carotid bruit, JVD or thyromegaly. CHEST: Bilaterally symmetrical. HEART: S1 and S2 positive. LUNGS: Clear to auscultation. ABDOMEN: Soft. Bowel sounds present. No organomegaly. EXTREMITIES: No edema. No cyanosis. NEUROLOGIC: The patient is awake and alert. Moving all 4 extremities. No focal deficits. LABORATORY DATA: White blood cells 14.8, hemoglobin 16.6, hematocrit 49.5, and platelets 191. Sodium 135, potassium 4.0, BUN 14, creatinine 1.8, and glucose 124. ASSESSMENT AND PLAN: Mr. Marcus Valdovinos is a 56-year-old male with leukocytosis, hyperglycemia, came with gastrointestinal bleeding, history of bunionectomy, urinary tract infection, elevated INR, coagulopathy, colitis. CAT scan shows gastrointestinal bleeding. We will call and consult with ALBINA Plummer. We will start antibiotics. Hold Coumadin. The patient has history of paraplegia, chronic obstructive pulmonary disease, congestive heart failure, chronic indwelling Ceron catheter. Urology consult called with Dr. Ly. He will change the Ceron. We will followup. Thalia Frazier MD
[2017-05-27] MEDS: metroNIDAZOLE IV 500 mg/100 ml 500 MG/100 ML BAG IVPB SCH ×3 (05:41→22:11)
[2017-05-27 07:25] LABS: HEMOGLOBIN 15.6 g/dL (14.0-18.0); MEAN CELL VOLUME 85.7 fl (80.0-105.0); MEAN CORPUSCULAR HEMOGLOBIN 27.9 pg (25.0-35.0); MEAN CORPUSCULAR HGB CONC 32.5 g/dl (31.0-37.0); MEAN PLATELET VOLUME 11.4 fl (7.0-11.0); RBC 5.6 10^6/uL (3.5-6.1); WHITE BLOOD COUNT 12.9 10^3/ul (4.5-11.0)
[2017-05-27 07:36] LABS: BLOOD UREA NITROGEN 13 mg/dL (7-21); CALCIUM 8.6 mg/dL (8.4-10.5); GFR AFRICAN-AMERICAN > 60; GFR NON-AFRICAN AMERICAN > 60
[2017-05-27] MEDS: Insulin Reg-LOW-Coverage SC SCH ×4 (08:25→22:00)
--- NOTE | 2017-05-27 09:29 | CARD ---
APPROVED REPORT EKG Measurement Heart [id number] <Conclusion> Normal sinus rhythm PRWP V 1 - 6, could be lead placement. Artifact present.
[2017-05-27] MEDS ORDERED: Ciprofloxacin 200mg/100ml D5W 100 ML IVPB SCH (10:00)
[2017-05-27] MEDS: Insulin Detemir 100 units/ml Vial (Levemir) SC SCH (22:11)
--- NOTE | 2017-05-27 23:58 | PN ---
DATE: SUBJECTIVE: Patient is examined at the bedside, looking comfortable, no more blood in the stool. No headache, still complaining about pain, generalized abdomen. No headache, no dizziness, no fever, no chills. PHYSICAL EXAMINATION: VITAL SIGNS: Temperature 98.8, pulse 96, blood pressure 110/82, respiratory rate 19. HEENT: Head is normocephalic and atraumatic. Eyes; PERRLA. Extraocular muscles intact. Conjunctivae clear. Nose patent. NECK: Supple. No carotid bruits, JVD or thyromegaly. CHEST: Bilaterally symmetrical. HEART: S1 and S2 positive. LUNGS: Clear to auscultation. ABDOMEN: Soft. Bowel sounds positive. No organomegaly. EXTREMITIES: No edema. No cyanosis. NEUROLOGICAL: The patient is awake and alert. Moving all 4 extremities. No focal deficit. MEDICATIONS: Albuterol, Flagyl, insulin, Levemir, Lopressor, melatonin, Pepcid, Singulair, Tylenol, Zestril. LABORATORY DATA: White blood cell 12.9, on admission it was 14.8, hemoglobin 15.6, hematocrit 48.0 and platelets 206. Sodium 137, potassium 3.6, BUN 13, creatinine 0.8 and glucose 154, calcium 8.6. ASSESSMENT AND PLAN: Mr. Bonifacio Velazquez is a 56-year-old male with leucocytosis, diabetes mellitus, uncontrolled, hematuria, UTI, came with a lower GI bleeding. CAT scan of abdomen and pelvis was done showed marked limited evaluation due to suboptimal technique, questionable hazy changes on the sigmoid colon which raises the possibility of sigmoid hiatus. Patient is getting antibiotics, GI is on the case, urologist is on the case and waiting for the input of GI and urologist. Patient has comorbid obesity,COPD, obstructive sleep apnea syndrome, history of bunionectomy, getting change of Ceron catheter every month by Dr. Ly, has a chronic indwelling Ceron catheter, multiple UTIs, history of syncope, history paraplegia, spinal tumor status post accident. Continue antibiotic. Gastrointestinal and deep venous thrombosis prophylaxis, repeat labs. We will follow up. Thalia Frazier MD [facility] # [id number] MTDD
[2017-05-28] MEDS: Albuterol-Ipratrop 3 mg / 0.5 (3 ml) UD IH SCH ×4 (01:29→20:57)
--- NOTE | 2017-05-28 01:58 | CON ---
DATE: 05/27/2017 REASON FOR CONSULTATION: Bleeding per rectum. HISTORY OF PRESENT ILLNESS: This is a 56-year-old patient with paraplegia, snf resident with a history of COPD, congestive heart failure, urinary incontinence and has chronic indwelling catheter, has recurrent UTIs, has noticed one-week history of bleeding per rectum and slightly loose bowel movements. The patient is also complaining of some lower abdominal discomfort. The patient has been on Coumadin, INR level on admission was 3.26. Denies any similar problems in the past. Never had colonoscopies done in the past. PAST MEDICAL HISTORY: His other past medical history significant for asthma, COPD, syncope, history of spinal tumor removed, left eye blindness, and diabetes mellitus. FAMILY HISTORY: Noncontributory except father has history of prostate cancer. SOCIAL HISTORY: Ex-smoker. Alcohol socially and occasionally. ALLERGIES: ALLERGIC TO PENICILLIN. REVIEW OF SYSTEMS: Positive as above. Other systems reviewed. PHYSICAL EXAMINATION GENERAL: The patient is lying on the bed, not in acute distress. VITAL SIGNS: Temperature is afebrile, blood pressure 132/92, pulse 95, and respirations 18. HEENT: Atraumatic, anicteric. NECK: Supple. HEART: S1 and S2 heard. LUNGS: Bilateral air entry present. ABDOMEN: Soft. Mild tenderness on deep palpation in the left lower quadrant. No rebound or guarding. EXTREMITIES: No cyanosis. No clubbing. NEUROLOGIC: The patient has weakness of the lower extremity. LABORATORY DATA: Hemoglobin 15.6, hematocrit 48, WBC 12.9, and platelets 206. Chemistry is essentially unremarkable except blood glucose 124. Repeat INR is 3.[address] scan of the abdomen and pelvis done was reviewed. Limited evaluation, the patient has some thickening of the sigmoid colon and some haziness noticed, it is extending up to the rectum clinically. IMPRESSION: This 56-year-old patient with a paraplegia, recurrent urinary tract infection admitted with bleeding per rectum. CT showed some thickening of the sigmoid with some haziness. Suggestive of proctosigmoiditis. Rule out Clostridium difficile. Rule out infectious or inflammatory colitis. The patient is presently on Cipro and Flagyl, antibiotics. RECOMMENDATIONS: Would recommend: 1. Stool culture and also Clostridium difficile. 2. The patient may benefit from flexible sigmoidoscopic evaluation if he continues remain symptomatic. His other comorbidities include asthma, COPD, diabetes mellitus, and neuropathic bladder. Thank you very much for allowing us to participate in the care of the patient. We will continue to closely follow up with his care and suggest further management based on the clinical course. Bandar Bateman MD [facility]
--- NOTE | 2017-05-28 03:39 | CON ---
DATE: 05/27/2017 PULMONARY PROGRESS NOTE REFERRING PHYSICIAN: Thalia Frazier MD REASON FOR CONSULTATION: Chronic obstructive lung disease, sleep apnea syndrome. HISTORY OF PRESENT ILLNESS: This is a 56-year-old gentleman with known history of quadriplegia, chronic obstructive lung disease, history of spinal cord tumor, obstructive uropathy requiring Ceron catheter, diabetes, and recurrent UTI, came in because of the rectal bleed. Presently lying in the bed. No headache, no rhinitis, no nausea. There is no bowel movement this morning. PAST MEDICAL HISTORY: As per history of present illness. FAMILY HISTORY: No significant cardiopulmonary disease reported. ALLERGIES: PENICILLIN. SOCIAL HISTORY: Former smoker. Denies any alcohol use. MEDICATIONS: He is on DuoNeb q.6 hours, Flagyl 500 mg q.8 hours, insulin coverage, Levemir 10 units subcu at bedtime, metoprolol tartrate 25 mg twice a day, melatonin 5 mg daily, Pepcid 20 mg twice a day, Singulair 10 mg at bedtime, Tylenol p.r.n., and Zestril 20 mg twice a day. REVIEW OF SYSTEMS: No headache, no rhinitis. Mild short of breath with exertion and cough. No nausea, no vomiting. No diarrhea. Mild abdominal discomfort, has rectal bleed, Ceron catheter. No leg swelling. PHYSICAL EXAMINATION: GENERAL: Lying in the bed, no acute distress. VITAL SIGNS: Temperature is 98, heart rate 92, respiratory rate is 18, blood pressure /95, pulse of 95% on nasal cannula. HEENT: Moist mucous membranes. Crowded airway. Short thick neck. LUNGS: Have fair airflow with rhonchi. HEART: S1 and S2. ABDOMEN: Obese, soft, nontender. EXTREMITIES: There is no edema. Has a Ceron catheter. NEUROLOGIC: Awake and alert, follows simple commands. LABORATORY DATA: Shows hemoglobin 15.6, hematocrit 48.0, WBC 12.9, and platelet is 206. INR today is 3.01. VBG showed pH 7.43, pCO2 of 47, O2 of 100, this is on room air. Sodium 137, potassium 3.6, chloride 100, bicarbonate 28, BUN 13, creatinine 0.8, glucose 126, calcium 8.6. Urinalysis shows nitrites positive, large blood, wbc's 1-3. Urine has a gram-negative cordell. Blood culture has been negative. Had a CT scan of the abdomen and pelvis done in ER, which shows marked limited evaluation due to suboptimal technique, questionable hazy changes surrounding the sigmoid colon, raises the possibility of colitis. IMPRESSION: Lower gastrointestinal bleed, on anticoagulation. History of chronic obstructive lung disease, may have sleep apnea syndrome, obesity, paraplegic, bladder outlet obstruction indwelling catheter, recurrent urinary tract infection, history of hematuria in the past, hypertension, congestive heart failure, diabetes, and anemia. PLAN: Agree with the present management. Continue Flagyl. Send stool for C. diff. We will place him on CPAP, bronchodilator. High risk for pressure ulcers. Thank you, and we will follow with you. Yosef Dunbar MD
[2017-05-28] MEDS: metroNIDAZOLE IV 500 mg/100 ml 500 MG/100 ML BAG IVPB SCH ×3 (05:24→21:20)
[2017-05-28 07:49] LABS: HEMOGLOBIN 15.4 g/dL (14.0-18.0); MEAN CELL VOLUME 85.5 fl (80.0-105.0); MEAN CORPUSCULAR HEMOGLOBIN 27.5 pg (25.0-35.0); MEAN CORPUSCULAR HGB CONC 32.2 g/dl (31.0-37.0); MEAN PLATELET VOLUME 11.4 fl (7.0-11.0); RBC 5.6 10^6/uL (3.5-6.1); RED CELL DISTRIBUTION WIDTH 14.2 % (11.5-14.5); WHITE BLOOD COUNT 12.2 10^3/ul (4.5-11.0)
[2017-05-28 07:55] LABS: INR 2.93 (0.93-1.08); PROTHROMBIN TIME 32.9 SECONDS (9.4-12.5)
[2017-05-28] MEDS: Insulin Reg-LOW-Coverage SC SCH ×4 (08:00→21:23)
[2017-05-28] MEDS: Insulin Detemir 100 units/ml Vial (Levemir) SC SCH (21:21)
--- NOTE | 2017-05-28 22:50 | PN ---
DATE: 05/28/2017 PULMONARY PROGRESS NOTE REFERRING PHYSICIAN: Thalia Frazier MD SUBJECTIVE: He is lying in the bed, head at 45 degrees. The night was unremarkable. Tolerated CPAP well. No cough, no sputum production. No nausea. No vomiting. Has had one bowel movement, no blood reported. No leg swelling. OBJECTIVE: GENERAL: In no acute distress. VITAL SIGNS: Temperature is 99, heart rate is 89, respiratory rate is 20, and blood pressure is 133/76, pulse ox 94% on room air. HEENT: Moist mucous membranes. Crowded airway. NECK: Short thick neck. LUNGS: Has a fair airflow with rhonchi. HEART: S1 and S2. ABDOMEN: Soft and nontender. No organomegaly. EXTREMITIES: No edema. NEUROLOGIC: Awake, alert, and follow simple commands. LABORATORY DATA: Hemoglobin 15.4, hematocrit 47.9, WBC 12.2, platelet is 223, INR is 2.93, blood sugar 143. Urine has E. coli and Enterococcus faecalis. Blood culture has been negative. MEDICATIONS: He is on DuoNeb q.6 hours, Flagyl 500 mg q. 8 hours, insulin coverage, Levemir 10 units subcutaneously at bedtime, metoprolol tartarate 25 mg twice a day, melatonin 5 mg daily, Pepcid 20 mg twice a day, Singulair 10 mg daily, Tylenol p.r.n., Zestril 20 mg twice a day. IMPRESSION AND PLAN: GI bleeding, on anticoagulation; chronic obstructive lung disease; sleep apnea syndrome; obesity; paraplegic; bladder outlet obstruction, recurrent urinary tract infection in the past, extended spectrum beta-lactamase urinary tract infection, had been treated, probably colonized at this level; hypertension, congestive heart failure; diabetes; anemia; high risk for pressure ulcer. Continue present care. Encourage CPAP use, bronchodilator. Keep head at 45 degrees. Follow up H and [facility]. Care for high risk pressure ulcer. Thank you and we will follow with you. Yosef Dunbar MD
--- NOTE | 2017-05-29 01:19 | PN ---
DATE: SUBJECTIVE: The patient is a 56-year-old male. The patient is seen and examined at bedside, complains about diarrhea, soft stool, but no blood. No headache. No dizziness. No chest pain. No palpitation. No fever. No chills. No nausea or vomiting. PHYSICAL EXAMINATION: VITAL SIGNS: Temperature 99.5, pulse 87, blood pressure 130/76, and respiratory rate 20. HEENT: Head normocephalic and atraumatic. Eyes: PERRLA. Extraocular muscles intact. Conjunctivae clear. Nose patent. Mucous membranes moist. NECK: Supple. No carotid bruits or thyromegaly. CHEST: Bilaterally symmetrical. HEART: S1 and S2 positive. LUNGS: Clear to auscultation. ABDOMEN: Soft. Bowel sounds positive. No organomegaly. EXTREMITIES: No edema. No cyanosis. NEUROLOGICAL: The patient is awake and alert. Moving all four extremities. No focal deficit. LABORATORY DATA: White blood cell 12.2, hemoglobin 15.4, hematocrit 37.5, platelets 223,000. Glucose 143, 150, 119. MEDICATIONS: DuoNeb, Flagyl, insulin, Levemir, Lopressor, melatonin, Pepcid, Singulair, Tylenol, Zestril. ASSESSMENT AND PLAN: The patient is a 56-year-old male with multiple medical problems, history of paraplegia, chronic obstructive lung disease, history of spinal cord tumor, obstructive uropathy, had Ceron catheter, diabetes mellitus uncontrolled, recurrent urinary tract infection. This time, came for rectal bleeding, now he has diarrhea, rule out colitis. Anticoagulation is on hold. Sleep apnea syndrome, comorbid obesity, history of hypertension, congestive heart failure. We will continue Flagyl and antibiotics. Placed the patient on continuous positive airway pressure as per Dr. Dunbar, bronchodilator. Gastrointestinal is on the case. Seen by Dr. Bandar Bateman, rule out Clostridium difficile, rule infectious/inflammatory colitis. Stool culture sent, waiting for the result. According to Gastrointestinal, the patient will get benefit of flexible sigmoidoscopy evaluation if continue to remain symptomatic. The patient has neuropathic bladder, asthma, gastrointestinal and deep venous thrombosis prophylaxis. Repeat labs. Thalia Frazier MD
--- NOTE | 2017-05-29 01:35 | PN ---
DATE: 05/28/2017 SUBJECTIVE: This patient was seen and evaluated earlier. Patient has no further episodes of bleeding. No complaints of any abdominal pain. PHYSICAL EXAMINATION VITAL SIGNS: Temperature 99.5, pulse 89, blood pressure 133/76, respirations 20, and O2 saturation 94%. HEENT: Atraumatic. Anicteric. NECK: Supple. HEART: S1 and S2 heard. LUNGS: Bilateral air entry present. ABDOMEN: Soft. There is no tenderness now. EXTREMITIES: No cyanosis. No clubbing. NEUROLOGIC: Alert and oriented. Patient has paraparesis/paraplegia. LABORATORY DATA: WBC is 12.2, hemoglobin 15.4, hematocrit 47.9, platelets 223. Coagulation, INR is 2.93. IMPRESSION: 1. This 56-year-old patient with paraplegia, recurrent urinary tract infections, senior care resident, patient has a chronic indwelling catheter. 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 No further episodes of bleeding. Waiting for the stool studies. 2. Continue the antibiotics. Followup of the hemoglobin and hematocrit. If the patient has active recurrence of the bleeding or abdominal worsening of the symptoms, then we will consider flexible sigmoidoscopy evaluation; otherwise, the patient would benefit from elective colonoscopic evaluation after switching over to Lovenox bridge. Thank you very much for allowing us to participate in the care of the patient. Bandar Bateman MD MTDD
[2017-05-29] MEDS: Albuterol-Ipratrop 3 mg / 0.5 (3 ml) UD IH SCH ×4 (03:00→21:30)
[2017-05-29] MEDS: metroNIDAZOLE IV 500 mg/100 ml 500 MG/100 ML BAG IVPB SCH ×3 (05:21→21:38)
[2017-05-29 06:55] LABS: HEMOGLOBIN 15.3 g/dL (14.0-18.0); MEAN CORPUSCULAR HEMOGLOBIN 27.5 pg (25.0-35.0); MEAN CORPUSCULAR HGB CONC 31.9 g/dl (31.0-37.0); MEAN PLATELET VOLUME 11.4 fl (7.0-11.0); RBC 5.57 10^6/uL (3.5-6.1); RED CELL DISTRIBUTION WIDTH 14.1 % (11.5-14.5); WHITE BLOOD COUNT 11.2 10^3/ul (4.5-11.0)
[2017-05-29 06:57] LABS: INR 2.16 (0.93-1.08); PROTHROMBIN TIME 24.1 SECONDS (9.4-12.5)
[2017-05-29 07:37] LABS: ALBUMIN 3.4 g/dL (3.0-4.8); ALT/SGPT 35 U/L (7-56); AST/SGOT 24 U/L (17-59); BLOOD UREA NITROGEN 12 mg/dL (7-21); CALCIUM 8.8 mg/dL (8.4-10.5); GFR AFRICAN-AMERICAN > 60; GFR NON-AFRICAN AMERICAN > 60
[2017-05-29] MEDS: Insulin Reg-LOW-Coverage SC SCH ×4 (07:58→21:39)
[2017-05-29] MEDS ORDERED: Nystatin 100,000 Units/gm Topical Pow(15 gm) TOP PRN (11:51)
--- NOTE | 2017-05-29 19:29 | PN ---
DATE:05/29/2017 SUBJECTIVE: This patient was seen and evaluated today. Urine culture shows ESBL and also E. Coli. The patient is only on ceftriaxone now. No bleeding per rectum. Had some loose bowel movement. PHYSICAL EXAMINATION VITAL SIGNS: Temperature is 98.6, pulse 90 and blood pressure 168/92. HEENT: Atraumatic. Anicteric. NECK: Supple. HEART: S1 and S2 heard. LUNGS: Bilateral air entry present. ABDOMEN: Soft. There is no tenderness. LABORATORY DATA: Hemoglobin 15.3, hematocrit 47.9, WBC 11.2, and platelets 212. BUN 12 and creatinine 0.8. IMPRESSION: This 56-year-old patient morbidly obese, paraplegic, has long-term indwelling Ceron catheter, presented with diarrhea and bleeding per rectum. The patient has been on Coumadin. Now, no further episode of bleeding; however, the urine cultures grow extended-spectrum beta-lactamase and Escherichia coli. RECOMMENDATIONS: Would recommend: 1. Follow up of the stool for C. diff. 2. ID evaluation in view of the ESBL and urine culture and E. coli. The patient was on Cipro; at the present time, only on Flagyl. Would need to restart the patient on antibiotics, which would be based on the ID recommendations. I will discuss with Dr. Frazier regarding this. Thank you very much for allowing me to participate in the care of this patient. Bandar Bateman MD [facility]
--- NOTE | 2017-05-29 20:44 | PN ---
DATE: SUBJECTIVE: The patient is a 56-year-old male. The patient is seen and examined at bedside, looking comfortable. No nausea, vomiting, diarrhea. No hematuria or hematochezia. No swelling of the legs. No chest pain. No palpitation. Skin has rash in the groin area and in the back. PHYSICAL EXAMINATION: VITAL SIGNS: Temperature 98.9, pulse 90, blood pressure 168/92, and respiratory rate 20. HEENT: Head normocephalic and atraumatic. Eyes: PERRLA. Extraocular muscles intact. Conjunctivae clear. Nose patent. Mucous membranes moist. NECK: Supple. No carotid bruits or thyromegaly. CHEST: Bilaterally symmetrical. HEART: S1 and S2 positive. LUNGS: Clear to auscultation. ABDOMEN: Soft. Bowel sounds positive. No organomegaly. EXTREMITIES: No edema. No cyanosis. NEUROLOGICAL: The patient is awake and alert. Moving upper 2 extremities. Obeying some more orders. SKIN: Has rash in the groin area and the back. MEDICATIONS: DuoNeb, Flagyl, insulin, Levemir, Lopressor, melatonin, Nystop topical powder, famotidine, Singulair, Tylenol, and Zestril. LABORATORY DATA: White blood cell 11.2, hemoglobin 15.3, hematocrit 47.9 and platelets 212. Sodium 137, potassium 3.9, BUN 12, creatinine 0.8 and glucose 157. ASSESSMENT AND PLAN: Mr. Marcus Valdovinos is a 56-year-old male with leukocytosis improving, insulin-dependent diabetes mellitus uncontrolled, tinea groin, hematuria, and urinary tract infection, sigmoid colitis, getting antibiotics, history of paraplegia, recurrent urinary tract infection, has pannectomy, chronic indwelling Ceron catheter, came with gastrointestinal bleeding. No further episodes of bleeding, waiting for stool studies. Continue antibiotics. Give nystatin powder for the groin area and the back. May be the patient will need flexible sigmoidoscopy as per gastrointestinal. The patient was on Coumadin, Dr. Bateman changed into Lovenox for bridge. Gastrointestinal and deep vein thrombosis prophylaxis. Repeat labs. We will follow up. Thalia Frazier MD
[2017-05-29] MEDS: Insulin Detemir 100 units/ml Vial (Levemir) SC SCH (21:40)
--- NOTE | 2017-05-29 23:15 | PN ---
PULMONARY PROGRESS NOTE DATE: 05/29/2017 REFERRING PHYSICIAN: Thalia Frazier MD SUBJECTIVE: The patient is lying in the bed, head at 45 degree, watching TV. Night was unremarkable. Tolerating CPAP well. Not much cough or sputum production. He does have some abdominal discomfort. No more melena or hematochezia. No GI bleed. No leg swelling. OBJECTIVE: GENERAL: In no acute distress. VITAL SIGNS: Temperature is 98.9, heart rate is 96, respiratory rate is 20, blood pressure 150/81 and pulse ox is 95% on nasal cannula. HEENT: Moist mucous membranes. Crowded airway. Mallampati score is IV. NECK: Supple. No JVD. LUNGS: Have fair airflow with few rhonchi. HEART: S1 and S2. ABDOMEN: Soft, nontender and nondistended. EXTREMITIES: No edema. NEUROLOGICALLY: Awake and alert. Follow simple commands. MEDICATIONS: He is on DuoNeb q. 6 hours round clock, Flagyl 500 mg q. 8 hours, insulin coverage, Levemir 10 units subcutaneously at bedtime, metoprolol tartarate 25 mg twice a day, melatonin 5 mg daily at bedtime, nystatin powder to affected area q. 4 hours, Pepcid 20 mg twice a day, Singulair 10 mg daily, Tylenol p.r.n. and Zestril 20 gm twice a day. LABORATORY DATA: Shows hemoglobin 15.3, hematocrit 47.9, WBC 11.2 and platelets 212. Blood sugar is 166. Sodium 137, potassium 3.9, chloride 100, bicarbonate 27, BUN 12, and creatinine 0.8 and calcium 8.8. AST 24, ALT 35, alkaline phosphatase is 87, and albumin is 3.4. Urine has E. coli and Enterococcus faecalis. IMPRESSION AND PLAN: Admitted with gastrointestinal bleed, been on anticoagulation; chronic obstructive lung disease; may have sleep apnea syndrome; obesity; paraplegic; bladder outlet obstruction requiring Ceron catheter; recurrent urinary tract infection colonized with extended-spectrum beta-lactamase, gram-negative organism. Pulmonary point of view, doing okay. Continue bronchodilator. Keep head at 45 degree. Encourage bilevel positive airway pressure use at night time. Other issue he has is hypertension and congestive heart failure with diabetes. Thank you and we will follow with you. Yosef Dunbar MD [facility] # [id number]
[2017-05-30] MEDS: Albuterol-Ipratrop 3 mg / 0.5 (3 ml) UD IH SCH ×4 (03:00→19:16)
[2017-05-30] MEDS: metroNIDAZOLE IV 500 mg/100 ml 500 MG/100 ML BAG IVPB SCH ×3 (05:34→21:24)
[2017-05-30 07:11] LABS: HEMOGLOBIN 14.9 g/dL (14.0-18.0); MEAN CELL VOLUME 86.1 fl (80.0-105.0); MEAN CORPUSCULAR HEMOGLOBIN 27.6 pg (25.0-35.0); MEAN CORPUSCULAR HGB CONC 32.1 g/dl (31.0-37.0); RBC 5.39 10^6/uL (3.5-6.1); RED CELL DISTRIBUTION WIDTH 14.2 % (11.5-14.5); WHITE BLOOD COUNT 9.4 10^3/ul (4.5-11.0)
[2017-05-30 07:26] LABS: INR 1.81 (0.93-1.08); PROTHROMBIN TIME 20.2 SECONDS (9.4-12.5)
[2017-05-30] MEDS: Insulin Reg-LOW-Coverage SC SCH ×4 (08:51→21:17)
--- NOTE | 2017-05-30 17:21 | CP.PCM.CON ---
History of Present Illness - History of Present Illness History of Present Illness: Infectious Disease Consultation: May 30, 2017 56 yo male with morbid obesity sent to [facility] for change of montague catheter and pain around catheter site. The patient is also claiming blood in his bowel movements. The patient denies fevers, chills, nausea, vomiting, diarrhea, headaches, dizziness, chest pain, abdominal pain, melena, hematuria, hematemesis, hematochezia. Patient was originally admitted for possible GI bleed. The patient was found to have positive urine cultures for ESBL+ E. Coli and Enterococcus. PMHx: Congestive Heart Failure, Chronic Obstructive Pulmonary Disease, Morbid Obesity , Benign Neoplasm of Spine, Paraplegia, history of multiple UTIs, left eye blindness. PSHx: Laminectomy 03/2015, Catheter placement 02/2015 Allergies: PCN - facial rash and lip swelling. Social Hx: no tobacco, EtOH, or illicit drug use. [place] resident Active Medications Acetaminophen (Tylenol 325mg Tab) 650 mg PO Q4H PRN PRN Reason: Temperature Last Admin: 05/29/17 17:50 Dose: 650 mg Albuterol/Ipratropium (Duoneb 3 Mg/0.5 Mg (3 Ml) Ud) 3 ml IH [id number] [facility] Last Admin: 05/30/17 14:45 Dose: 3 ml Famotidine (Pepcid) 20 mg PO BID [facility] Last Admin: 05/30/17 11:06 Dose: 20 mg Metronidazole (Flagyl) 500 mg in 100 mls @ 100 mls/hr IVPB Q8 [facility] PRN Reason: Protocol Last Admin: 05/30/17 14:24 Dose: 100 mls/hr Insulin Detemir (Levemir) 10 unit SC [facility] Last Admin: 05/29/17 21:40 Dose: 10 unit Insulin Human Regular (Humulin R Low) 0 units SC ACHS [facility] PRN Reason: Protocol Last Admin: 05/30/17 12:56 Dose: 1 units Lisinopril (Zestril) 20 mg PO BID [facility] Last Admin: 05/30/17 11:05 Dose: 20 mg Metoprolol Tartrate (Lopressor) 25 mg PO BID [facility] Last Admin: 05/30/17 11:05 Dose: 25 mg Montelukast Sodium (Singulair) 10 mg PO [facility] Last Admin: 05/29/17 21:40 Dose: 10 mg Non-Formulary Medication (Melatonin [Melatonin]) 5 mg PO DAILY [facility] Last Admin: 05/30/17 11:01 Dose: Not Given Nystatin (Nystop Topical Powder) 1 gm TOP Q4H PRN PRN Reason: Rash Family Hx: none given ROS: No fevers, chills, nausea, vomiting, diarrhea, headaches, dizziness, chest pain , melena, hematuria, hematemesis, hematochezia, depression, anxiety, vision loss , hearing loss, loss of consciousness, chest pain, abdominal pain. Past Patient History - Infectious Disease Hx of Infectious Diseases: None - Past Medical History & Family History Past Medical History?: Yes - Past Social History Smoking Status: Former Smoker - CARDIAC Hx Pacemaker: No - PULMONARY Hx Respiratory Disorders: Yes (USED TO SMOKE CIGARETTES 1 PK LASTS 3 WEEKS.) Hx Asthma: Yes Hx Chronic Obstructive Pulmonary Disease (COPD): Yes - NEUROLOGICAL Hx Neurological Disorder: Yes (SYNCOPE) HX Cerebrovascular Accident: Yes Other/Comment: Paraplegia/ spinal tumor-WITH SX - HEENT Hx HEENT Problems: Yes Hx Blind: Yes (left eye) - RENAL Hx Chronic Kidney Disease: Yes (UROSEPSIS MULTIPLE TIMES. MONTAGUE CATH. NEUROPATHIC BLADDER) - ENDOCRINE/METABOLIC Hx Endocrine Disorders: Yes Hx Diabetes Mellitus Type 2: Yes - HEMATOLOGICAL/ONCOLOGICAL Hx Cancer: No - INTEGUMENTARY Hx Dermatological Problems: Yes Other/Comment: ABDOMINAL FOLDS MASD,BILATERAL LE SKIN DRYNESS,LARGE THIN FLAKES, LIGHT BROWN SKIN DISCOLORATION,RIGHT BIG TOE WITH FLUSHED SKIN,SWELLING.STATES NAIL WAS CLIPPED AND NEVER HEALED. - MUSCULOSKELETAL/RHEUMATOLOGICAL Hx Falls: No - GASTROINTESTINAL Hx Gastrointestinal Disorders: Yes Other/Comment: Morbid obesity, incONTINENT - GENITOURINARY/GYNECOLOGICAL Hx Genitourinary Disorders: Yes Hx Incontinence: Yes Hx Urinary Tract Infection: Yes Other/Comment: chronic Urinary catheter - PSYCHIATRIC Hx Psychophysiologic Disorder: No Hx Substance Use: No - SURGICAL HISTORY Hx Mastectomy: No - ANESTHESIA Hx Anesthesia: Yes Hx Anesthesia Reactions: No Hx Malignant Hyperthermia: No Meds Allergies/Adverse Reactions: Allergies Allergy/AdvReac Type Severity Reaction Status Date / Time Penicillins Allergy ANAPHYLAXIS Verified 03/17/17 17:15 - Medications Medications: Current Medications Acetaminophen (Tylenol 325mg Tab) 650 mg PO Q4H PRN PRN Reason: Temperature Last Admin: 05/29/17 17:50 Dose: 650 mg Albuterol/Ipratropium (Duoneb 3 Mg/0.5 Mg (3 Ml) Ud) 3 ml IH [id number] [facility] Last Admin: 05/30/17 14:45 Dose: 3 ml Famotidine (Pepcid) 20 mg PO BID [facility] Last Admin: 05/30/17 11:06 Dose: 20 mg Metronidazole (Flagyl) 500 mg in 100 mls @ 100 mls/hr IVPB Q8 [facility] PRN Reason: Protocol Last Admin: 05/30/17 14:24 Dose: 100 mls/hr Insulin Detemir (Levemir) 10 unit SC HS [facility] Last Admin: 05/29/17 21:40 Dose: 10 unit Insulin Human Regular (Humulin R Low) 0 units SC ACHS [facility] PRN Reason: Protocol Last Admin: 05/30/17 12:56 Dose: 1 units Lisinopril (Zestril) 20 mg PO BID [facility] Last Admin: 05/30/17 11:05 Dose: 20 mg Metoprolol Tartrate (Lopressor) 25 mg PO BID [facility] Last Admin: 05/30/17 11:05 Dose: 25 mg Montelukast Sodium (Singulair) 10 mg PO HS [facility] Last Admin: 05/29/17 21:40 Dose: 10 mg Non-Formulary Medication (Melatonin [Melatonin]) 5 mg PO DAILY [facility] Last Admin: 05/30/17 11:01 Dose: Not Given Nystatin (Nystop Topical Powder) 1 gm TOP Q4H PRN PRN Reason: Rash Physical Exam - Constitutional Appears: Non-toxic, No Acute Distress, Chronically Ill - Head Exam Head Exam: ATRAUMATIC, NORMOCEPHALIC Additional comments: dryness of facial skin. - Eye Exam Eye Exam: EOMI, PERRL Pupil Exam: NORMAL ACCOMODATION, PERRL - ENT Exam ENT Exam: Mucous Membranes Moist, Normal External Ear Exam, TM's Normal Bilaterally - Neck Exam Neck exam: Positive for: Full Rom, Normal Inspection - Respiratory Exam Respiratory Exam: Clear to Auscultation Bilateral, NORMAL BREATHING PATTERN. absent: Rales, Rhonchi, Wheezes - Cardiovascular Exam Cardiovascular Exam: REGULAR RHYTHM, RRR, +S1, +S2 - GI/Abdominal Exam GI & Abdominal Exam: Normal Bowel Sounds, Soft. absent: Distended, Tenderness Additional comments: patient is morbidly obese - Extremities Exam Additional comments: paraplegic. - Neurological Exam Neurological exam: Alert, CN II-XII Intact, Oriented x3 - Psychiatric Exam Psychiatric exam: Normal Affect, Normal Mood - Skin Skin Exam: Intact, Normal Color Results - Vital Signs Recent Vital Signs: Last Vital Signs Temp 98.8 F 05/30/17 08:12 Pulse 77 05/30/17 08:12 Resp 17 05/30/17 08:12 BP 154/101 H 05/30/17 08:12 Pulse Ox 94 L 05/30/17 08:12 - Labs Result Diagrams: 05/30/17 06:45 05/29/17 06:00 Labs: Laboratory Results - last 24 hr 05/29/17 05/29/17 05/30/17 16:54 21:15 06:45 WBC RBC Hgb Hct MCV MCH MCHC RDW Plt Count MPV PT 20.2 H INR 1.81 H POC Glucose (mg/dL) 166 H 163 H Stool Occult Blood 05/30/17 05/30/17 05/30/17 06:45 07:33 11:13 WBC 9.4 RBC 5.39 Hgb 14.9 Hct 46.4 MCV 86.1 MCH 27.6 MCHC 32.1 RDW 14.2 Plt Count 211 MPV 11.0 PT INR POC Glucose (mg/dL) 114 H 167 H Stool Occult Blood 05/30/17 05/30/17 14:00 15:52 WBC RBC Hgb Hct MCV MCH MCHC RDW Plt Count MPV PT INR POC Glucose (mg/dL) 153 H Stool Occult Blood Negative Assessment & Plan - Assessment and Plan (Free Text) Assessment: 56 yo male with reports of blood in stool. The patient has multiple medical issues including obesity, paraplegia, CHF, COPD, blindness in left eye, and history of multiple UTIs. The patient has PCN allergies where he develops facial swelling and lip swelling. The patient was found to have positive urine cultures with ESBL + E. coli and Enterococcus. Start Vancomycin and Aminoglycoside for antibiotic treatment while monitoring renal function. Supportive care. Thank you for allowing me to participate in the care of the patient, we will follow with you.
[2017-05-30] MEDS ORDERED: Gentamicin 80 mg/2mL Inj. IVPB SCH ×2 (17:30→22:00)
[2017-05-30] MEDS ORDERED: Vancomycin 1gm in NS 250ml 1 GM/250 ML BAG IVPB SCH (17:30)
[2017-05-30] MEDS ORDERED: Gentamicin 180 MG in Sodium Chloride 0.9% 100 ML IVPB SCH (18:00)
[2017-05-30] MEDS: Insulin Detemir 100 units/ml Vial (Levemir) SC SCH (21:24)
--- NOTE | 2017-05-30 21:40 | PN ---
PULMONARY PROGRESS NOTE DATE: 05/30/2017 REFERRING PHYSICIAN: Thalia Frazier MD SUBJECTIVE: He is lying in the bed, head at 45 degrees. Tolerating the BiPAP well. No headaches. No rhinitis. No nausea. Abdominal pain is better. No leg pain or leg swelling. OBJECTIVE: GENERAL: In no acute distress. VITAL SIGNS: Temperature is 98, heart rate is 85, respiratory rate is 18, blood pressure is 130/75, and pulse oximetry is 95% on room air. HEENT: Moist mucous membranes. Crowded airway. Mallampati score is IV. NECK: Short thick neck. LUNGS: Has a fair airflow with rhonchi. HEART: S1 and S2. ABDOMEN: Soft and nontender. No organomegaly. EXTREMITIES: There is not much edema. NEUROLOGIC: Awake and alert. Follow simple commands. LABORATORY DATA: Shows hemoglobin 14.9, hematocrit 46.4, WBC 9.4, and platelet is 211. INR 1.81. Blood sugar 153. MEDICATIONS: He is on DuoNeb q.6 hours,Flagyl 500 mg q.8 hours, gentamicin 180 mg q.8 hours, insulin coverage, Levemir 10 units subcutaneously at bedtime, metoprolol tartarate 25 mg twice a day, melatonin 5 mg daily, Pepcid 20 mg twice a day, Singulair 10 mg daily, Tylenol p.r.n. basis, vancomycin 1 g IV q.12 hours, and Zestril 20 mg twice a day. IMPRESSION AND PLAN: Status post gastrointestinal bleed, urinary tract infection, chronic obstructive lung disease, sleep apnea syndrome, obesity, paraplegia, and bladder outlet obstruction, requiring Ceron catheter. Pulmonary point of view, doing okay. Keep head at 45 degrees. Bronchodilator. Encourage CPAP use, antibiotics as per infectious disease, being followed by GI and Infectious Disease, and follow up labs in the morning. Thank you and we will follow with you. Yosef Dunbar MD
--- NOTE | 2017-05-30 21:44 | CP.PCM.PN ---
<Nataliia Gold - Last Filed: 05/30/17 22:51> Subjective - Date & Time of Evaluation Date of Evaluation: 05/30/17 Time of Evaluation: 09:40 - Subjective Subjective: 56yr male w/ history of morbid obesity, paraplegia, COPD, CHF, chronic indwelling montague catheter, spinal tumor, laminectomy in 2015, L eye blindness, urosepsis, DM II, HTN, and neuropathic bladder. He is comfortable in bed and denies any discomfort with his newly changed montague catheter. Reports an occasional cough. Denies any headaches, SOB, N/V, fevers, constipation, diarrhea , urinary changes or distress. Objective - Vital Signs/Intake and Output Vital Signs (last 24 hours): Temp Pulse Resp BP Pulse Ox 98.5 F 85 18 130/75 95 05/30/17 16:00 05/30/17 16:00 05/30/17 16:00 05/30/17 16:00 05/30/17 16:00 Intake and Output: 05/30/17 05/31/17 18:59 06:59 Intake Total 720 360 Output Total 1250 475 Balance -530 -115 - Medications Medications: Current Medications Acetaminophen (Tylenol 325mg Tab) 650 mg PO Q4H PRN PRN Reason: Temperature Last Admin: 05/29/17 17:50 Dose: 650 mg Albuterol/Ipratropium (Duoneb 3 Mg/0.5 Mg (3 Ml) Ud) 3 ml IH [id number] [facility] Last Admin: 05/30/17 19:16 Dose: 3 ml Famotidine (Pepcid) 20 mg PO BID [facility] Last Admin: 05/30/17 17:56 Dose: 20 mg Metronidazole (Flagyl) 500 mg in 100 mls @ 100 mls/hr IVPB Q8 [facility] PRN Reason: Protocol Last Admin: 05/30/17 21:24 Dose: 100 mls/hr Vancomycin HCl (Vancomycin 1gm) 1 gm in 250 mls @ 167 mls/hr IVPB 1000,2200 [facility] PRN Reason: Protocol Gentamicin Sulfate 180 mg/ (Sodium Chloride) 104.5 mls @ 100 mls/hr IVPB Q8 [facility] Insulin Detemir (Levemir) 10 unit SC HS [facility] Last Admin: 05/30/17 21:24 Dose: 10 unit Insulin Human Regular (Humulin R Low) 0 units SC ACHS [facility] PRN Reason: Protocol Last Admin: 05/30/17 21:17 Dose: Not Given Lisinopril (Zestril) 20 mg PO BID [facility] Last Admin: 05/30/17 17:56 Dose: 20 mg Metoprolol Tartrate (Lopressor) 25 mg PO BID [facility] Last Admin: 05/30/17 17:56 Dose: 25 mg Montelukast Sodium (Singulair) 10 mg PO HS [facility] Last Admin: 05/30/17 21:24 Dose: 10 mg Non-Formulary Medication (Melatonin [Melatonin]) 5 mg PO DAILY [facility] Last Admin: 05/30/17 11:01 Dose: Not Given Nystatin (Nystop Topical Powder) 1 gm TOP Q4H PRN PRN Reason: Rash - Labs Labs: 05/30/17 06:45 05/29/17 06:00 PT 20.2 SECONDS (9.4-12.5) H 05/30/17 06:45 INR 1.81 (0.93-1.08) H 05/30/17 06:45 APTT 45.2 Seconds (25.1-36.5) H 05/26/17 16:11 - Constitutional Appears: Well, No Acute Distress - Head Exam Head Exam: ATRAUMATIC, NORMAL INSPECTION, NORMOCEPHALIC - Eye Exam Eye Exam: Normal appearance Pupil Exam: NORMAL ACCOMODATION - ENT Exam ENT Exam: Mucous Membranes Moist, Normal Exam - Neck Exam Neck Exam: Full ROM, Normal Inspection. absent: Lymphadenopathy - Respiratory Exam Respiratory Exam: Clear to Ausculation Bilateral, NORMAL BREATHING PATTERN - Cardiovascular Exam Cardiovascular Exam: +S1, +S2. absent: Murmur - GI/Abdominal Exam GI & Abdominal Exam: Soft, Normal Bowel Sounds. absent: Tenderness Additional comments: morbidly obese - Exam Exam: NORMAL INSPECTION (montague catheter draining clear yellow urine ) - Extremities Exam Extremities Exam: Full ROM, Normal Capillary Refill, Normal Inspection. absent : Joint Swelling, Pedal Edema Additional comments: paraplegia - Back Exam Back Exam: NORMAL INSPECTION - Neurological Exam Neurological Exam: Alert, Awake, Oriented x3 - Psychiatric Exam Psychiatric exam: Normal Affect, Normal Mood - Skin Skin Exam: Dry, Intact, Normal Color, Warm Assessment and Plan (1) GI bleeding Status: Acute (2) UTI (urinary tract infection) Status: Acute (3) Leukocytosis Status: Acute (4) Hyperglycemia Status: Acute (5) Colitis Status: Acute (6) Elevated INR Status: Acute - Assessment and Plan (Free Text) Plan: IV vanco/gentamicin/metronidazole. Cpap. Agree with current plan of care. Consults: Pulmonary - = continue brochodilator, HOB 45 degress, Cpap I.D. - Dr. Vigil = ESBL/E. coli (+) urine tx vancomycin & amnioglycoside, monitor renal function GI - Dr. Bateman = C. diff stool culture ordered, ID for abx Urology - Dr. Ly = ? Reviewed: CT abd & pelvis - Cardiomegaly, atelectasis, spinal/pelvic DJD, possible sigmoid colitis ECG = NSR, PRWP v1-v6, artifact present. <Thalia Frazier - Last Filed: 05/31/17 17:18> Objective - Vital Signs/Intake and Output Vital Signs (last 24 hours): Temp Pulse Resp BP Pulse Ox 98.7 F 94 H 20 151/95 H 97 05/31/17 07:46 05/31/17 07:46 05/31/17 07:46 05/31/17 07:46 05/31/17 07:46 Intake and Output: 05/31/17 05/31/17 06:59 18:59 Intake Total 360 Output Total 875 Balance -515 - Medications Medications: Current Medications Acetaminophen (Tylenol 325mg Tab) 650 mg PO Q4H PRN PRN Reason: Temperature Last Admin: 05/29/17 17:50 Dose: 650 mg Albuterol/Ipratropium (Duoneb 3 Mg/0.5 Mg (3 Ml) Ud) 3 ml IH [id number] Last Admin: 05/31/17 13:55 Dose: 3 ml Famotidine (Pepcid) 20 mg PO BID [facility] Last Admin: 05/31/17 11:09 Dose: 20 mg Vancomycin HCl (Vancomycin 1gm) 1 gm in 250 mls @ 167 mls/hr IVPB 1000,2200 [facility] PRN Reason: Protocol Last Admin: 05/31/17 11:13 Dose: 167 mls/hr Gentamicin Sulfate 180 mg/ (Sodium Chloride) 104.5 mls @ 100 mls/hr IVPB Q8 [facility] Last Admin: 05/31/17 13:58 Dose: 100 mls/hr Insulin Detemir (Levemir) 10 unit SC [facility] Last Admin: 05/30/17 21:24 Dose: 10 unit Insulin Human Regular (Humulin R Low) 0 units SC ACHS [facility] PRN Reason: Protocol Last Admin: 05/31/17 12:40 Dose: 1 units Lisinopril (Zestril) 20 mg PO BID [facility] Last Admin: 05/31/17 11:08 Dose: 20 mg Metoprolol Tartrate (Lopressor) 25 mg PO BID [facility] Last Admin: 05/31/17 11:09 Dose: 25 mg Metronidazole (Flagyl) 500 mg PO Q8 [facility] Last Admin: 05/31/17 15:53 Dose: 500 mg Montelukast Sodium (Singulair) 10 mg PO HS [facility] Last Admin: 05/30/17 21:24 Dose: 10 mg Non-Formulary Medication (Melatonin [Melatonin]) 5 mg PO DAILY [facility] Last Admin: 05/31/17 11:15 Dose: Not Given Nystatin (Nystop Topical Powder) 1 gm TOP Q4H PRN PRN Reason: Rash - Labs Labs: 05/30/17 06:45 05/30/17 23:50 PT 19.7 SECONDS (9.4-12.5) H 05/31/17 06:50 INR 1.77 (0.93-1.08) H 05/31/17 06:50 APTT 45.2 Seconds (25.1-36.5) H 05/26/17 16:11 Assessment and Plan - Assessment and Plan (Free Text) Plan: pt is seen and examined at bed side , looking comfortable , no change of status . chart , meds and labs noted , no n,v,d , che or chest pain , sob and abdominal pain cont. same treatment , will f/u . agreed all above .
[2017-05-30] MEDS: Gentamicin 180 MG in Sodium Chloride 0.9% 100 ML IVPB SCH (22:40)
[2017-05-31] MEDS: Vancomycin 1gm in NS 250ml 1 GM/250 ML BAG IVPB SCH ×3 (00:01→23:36)
[2017-05-31 00:42] LABS: ALBUMIN 3.3 g/dL (3.0-4.8); ALT/SGPT 37 U/L (7-56); AST/SGOT 26 U/L (17-59); BLOOD UREA NITROGEN 11 mg/dL (7-21); CALCIUM 8.5 mg/dL (8.4-10.5); GFR AFRICAN-AMERICAN > 60; GFR NON-AFRICAN AMERICAN > 60
[2017-05-31] MEDS: Albuterol-Ipratrop 3 mg / 0.5 (3 ml) UD IH SCH ×4 (01:04→19:50)
[2017-05-31] MEDS: metroNIDAZOLE IV 500 mg/100 ml 500 MG/100 ML BAG IVPB SCH (05:08)
[2017-05-31] MEDS: Gentamicin 180 MG in Sodium Chloride 0.9% 100 ML IVPB SCH ×3 (06:24→22:16)
[2017-05-31 07:24] LABS: INR 1.77 (0.93-1.08); PROTHROMBIN TIME 19.7 SECONDS (9.4-12.5)
[2017-05-31] MEDS: Insulin Reg-LOW-Coverage SC SCH ×4 (07:47→22:17)
--- NOTE | 2017-05-31 08:40 | PQF GENQUE ---
This form is a permanent part of the medical record Clarification of your documentation is requested to better reflect the severity of illness and intensity of treatment of your patient. Indicators present Pt w/ chronic montague , presents w/ + UTI- Escherichia Coli, Enterococcus Faecalis. Please make correlation of UTI dt indwelling catheter in your documentation [] Specify: [] + urine culture [] Specify: [] [] Specify: [] [] Specify: [] Location in the medical record that reflects the above clinical findings: [x] ID consult Treatment Provided: []IV Abx PHYSICIAN'S RESPONSE Based on your medical judgment of the clinical indicators outlined above please clarify the following: [] Practitioner response [] If unable to determine, please check the box, sign and date. Present On Admission (POA) Indicator: [] Present at the time of admission [] Not present at the time of admission [] Clinically Undetermined In responding to this query, please exercise your independent professional judgment. The fact that a question is asked does not imply that any particular answer is desired or expected. Thank you for your clarification on this documentation. If you have any questions please call:[ ][phone] * Thank you, [ ]Lydia Vyas RN CDS scientologist [facility]
--- NOTE | 2017-05-31 11:10 | PCM.URO ---
Urology Progress Note - Objective Lab Studies: Reviewed (from a gu standpoint , pt clear for discharge on antibiotics to cover infection) Lab Results Last 24 Hours: Laboratory Results - last 24 hr 05/30/17 05/30/17 05/30/17 11:13 14:00 15:52 PT INR Sodium Potassium Chloride Carbon Dioxide Anion Gap BUN Creatinine Est GFR ( Amer) Est GFR (Non-Af Amer) POC Glucose (mg/dL) 167 H 153 H Random Glucose Calcium Total Bilirubin AST ALT Alkaline Phosphatase Total Protein Albumin Globulin Albumin/Globulin Ratio Stool Occult Blood Negative 05/30/17 05/30/17 05/31/17 21:14 23:50 06:50 PT 19.7 H INR 1.77 H Sodium 136 Potassium 3.7 Chloride 101 Carbon Dioxide 28 Anion Gap 12 BUN 11 Creatinine 0.8 Est GFR ( Amer) > 60 Est GFR (Non-Af Amer) > 60 POC Glucose (mg/dL) 142 H Random Glucose 135 H Calcium 8.5 Total Bilirubin 0.4 AST 26 ALT 37 Alkaline Phosphatase 64 Total Protein 6.7 Albumin 3.3 Globulin 3.3 Albumin/Globulin Ratio 1.0 L Stool Occult Blood 05/31/17 07:19 PT INR Sodium Potassium Chloride Carbon Dioxide Anion Gap BUN Creatinine Est GFR ( Amer) Est GFR (Non-Af Amer) POC Glucose (mg/dL) 114 H Random Glucose Calcium Total Bilirubin AST ALT Alkaline Phosphatase Total Protein Albumin Globulin Albumin/Globulin Ratio Stool Occult Blood Intake & Output: Intake & Output 05/30/17 05/31/17 05/31/17 18:59 06:59 18:59 Intake Total 720 360 Output Total 1250 875 Balance -530 -515 Intake: Oral 720 360 Output: Urine 1250 875 Urethral (Ceron) 1250 875 Other: # Bowel Movements 2 1 Vital Signs: Vital Signs - 24 hr 05/30/17 05/31/17 05/31/17 16:00 01:52 07:46 Temperature 98.5 F 98.7 F Pulse Rate 85 85 94 H Respiratory 18 20 Rate Blood Pressure 130/75 151/95 H O2 Sat by Pulse 95 97 Oximetry
--- NOTE | 2017-05-31 15:34 | CP.PCM.PN ---
Subjective - Date & Time of Evaluation Date of Evaluation: 05/31/17 Time of Evaluation: 14:30 - Subjective Subjective: Infectious Disease Follow Up: May 31, 2017 56 yo male with morbid obesity sent to [facility] for change of montague catheter and pain around catheter site. The patient is also claiming blood in his bowel movements. The patient denies fevers, chills, nausea, vomiting, diarrhea, headaches, dizziness, chest pain, abdominal pain, melena, hematuria, hematemesis, hematochezia. Patient was originally admitted for possible GI bleed. The patient was found to have positive urine cultures for ESBL+ E. Coli and Enterococcus. Started on IV Vancomycin and Gentamicin for antibiotic coverage. Looking for 7 days of coverage. No significant complaints. Objective - Vital Signs/Intake and Output Vital Signs (last 24 hours): Temp Pulse Resp BP Pulse Ox 98.7 F 94 H 20 151/95 H 97 05/31/17 07:46 05/31/17 07:46 05/31/17 07:46 05/31/17 07:46 05/31/17 07:46 Intake and Output: 05/31/17 05/31/17 06:59 18:59 Intake Total 360 Output Total 875 Balance -515 - Medications Medications: Current Medications Acetaminophen (Tylenol 325mg Tab) 650 mg PO Q4H PRN PRN Reason: Temperature Last Admin: 05/29/17 17:50 Dose: 650 mg Albuterol/Ipratropium (Duoneb 3 Mg/0.5 Mg (3 Ml) Ud) 3 ml IH [id number] [facility] Last Admin: 05/31/17 13:55 Dose: 3 ml Famotidine (Pepcid) 20 mg PO BID [facility] Last Admin: 05/31/17 11:09 Dose: 20 mg Vancomycin HCl (Vancomycin 1gm) 1 gm in 250 mls @ 167 mls/hr IVPB 1000,2200 GREG PRN Reason: Protocol Last Admin: 05/31/17 11:13 Dose: 167 mls/hr Gentamicin Sulfate 180 mg/ (Sodium Chloride) 104.5 mls @ 100 mls/hr IVPB Q8 [facility] Last Admin: 05/31/17 13:58 Dose: 100 mls/hr Insulin Detemir (Levemir) 10 unit SC HS [facility] Last Admin: 05/30/17 21:24 Dose: 10 unit Insulin Human Regular (Humulin R Low) 0 units SC ACHS [facility] PRN Reason: Protocol Last Admin: 05/31/17 12:40 Dose: 1 units Lisinopril (Zestril) 20 mg PO BID [facility] Last Admin: 05/31/17 11:08 Dose: 20 mg Metoprolol Tartrate (Lopressor) 25 mg PO BID [facility] Last Admin: 05/31/17 11:09 Dose: 25 mg Metronidazole (Flagyl) 500 mg PO Q8 [facility] Montelukast Sodium (Singulair) 10 mg PO HS [facility] Last Admin: 05/30/17 21:24 Dose: 10 mg Non-Formulary Medication (Melatonin [Melatonin]) 5 mg PO DAILY [facility] Last Admin: 05/31/17 11:15 Dose: Not Given Nystatin (Nystop Topical Powder) 1 gm TOP Q4H PRN PRN Reason: Rash - Labs Labs: 05/30/17 06:45 05/30/17 23:50 PT 19.7 SECONDS (9.4-12.5) H 05/31/17 06:50 INR 1.77 (0.93-1.08) H 05/31/17 06:50 APTT 45.2 Seconds (25.1-36.5) H 05/26/17 16:11 - Constitutional Appears: Non-toxic, No Acute Distress, Chronically Ill - Head Exam Head Exam: ATRAUMATIC, NORMOCEPHALIC Additional comments: dryness of facial skin - Eye Exam Eye Exam: EOMI, PERRL Pupil Exam: NORMAL ACCOMODATION, PERRL - ENT Exam ENT Exam: Mucous Membranes Moist, Normal External Ear Exam, TM's Normal Bilaterally - Neck Exam Neck Exam: Full ROM, Normal Inspection - Respiratory Exam Respiratory Exam: Clear to Ausculation Bilateral, NORMAL BREATHING PATTERN. absent: Rales, Rhonchi, Wheezes - Cardiovascular Exam Cardiovascular Exam: REGULAR RHYTHM, RRR, +S1, +S2 - GI/Abdominal Exam GI & Abdominal Exam: Soft, Normal Bowel Sounds. absent: Distended, Tenderness Additional comments: patient is morbidly obese - Extremities Exam Additional comments: paraplegic - Neurological Exam Neurological Exam: Alert, Awake, CN II-XII Intact, Oriented x3 - Psychiatric Exam Psychiatric exam: Normal Affect, Normal Mood - Skin Skin Exam: Intact, Normal Color Assessment and Plan - Assessment and Plan (Free Text) Assessment: 56 yo male with reports of blood in stool. The patient has multiple medical issues including obesity, paraplegia, CHF, COPD, blindness in left eye, and history of multiple UTIs. The patient has PCN allergies where he develops facial swelling and lip swelling. The patient was found to have positive urine cultures with ESBL + E. coli and Enterococcus. Start Vancomycin and Aminoglycoside for antibiotic treatment while monitoring renal function. Supportive care. He will need 7 days of care. Thank you for allowing me to participate in the care of the patient, we will follow with you.
--- NOTE | 2017-05-31 20:14 | PN ---
DATE: SUBJECTIVE: The patient is a 56-year-old male. The patient is seen and examined early in the morning at the bedside, looking comfortable. Seen by urologist cleared for discharge. Seen by the ID, need IV antibiotics for 7 to 10 days or putting peripheral line, midline. No nausea, vomiting, or diarrhea. No hematuria or hematochezia. Abdominal pain is better. No headache or dizziness. No fever. No chills. PHYSICAL EXAMINATION: VITAL SIGNS: Temperature 98.7, pulse 94, blood pressure 150/95, and respiratory rate 20. HEENT: Head normocephalic and atraumatic. Eyes: PERRLA. Extraocular muscles intact. Conjunctivae clear. Nose patent. Mucous membranes moist. NECK: Supple. No carotid bruits, no JVD, or thyromegaly. CHEST: Bilaterally symmetrical. HEART: S1 and S2 positive. LUNGS: Clear to auscultation. ABDOMEN: Soft. Bowel sounds positive. No organomegaly. EXTREMITIES: No edema. No cyanosis. NEUROLOGICAL: The patient is awake and alert. Moving all 4 extremities. No focal deficits. MEDICATIONS: DuoNeb, Flagyl, gentamicin, insulin, Levemir, Lopressor, nystatin topical powder, Pepcid, Singulair, Tylenol, vancomycin and Zestril. LABORATORY DATA: White blood cell 9.4, hemoglobin 14.9, hematocrit 46.4 and platelets 211. Sodium 136, potassium 3.7, BUN 11, creatinine 0.8, and glucose 145. ASSESSMENT AND PLAN: Mr. Marcus Valdovinos is a 56-year-old male with leukocytosis improved, hyperglycemia, hematuria, urinary tract infection, stool occult is negative, comorbid obesity, pannectomy, having chronic Ceron catheter, repeat urinary tract infection, came with lower gastrointestinal bleeding, paraplegia, congestive heart failure, chronic obstructive pulmonary disease, blindness in the left eye. THE PATIENT IS ALLERGIC WITH PENICILLIN. The patient was found to have positive urine culture with extended-spectrum beta-lactamases plus Escherichia coli and Enterococcus. Getting vancomycin, aminoglycoside for antibiotic treatment while monitoring renal function, supportive care. We will need 7 days of more care. Put midline. We will send back to for the completion of antibiotics. Dr. Vigil will see the patient there. GI/DVT prophylaxis. Repeat labs. We will follow. Thalia Frazier MD [facility] # [id number] [place]
--- NOTE | 2017-05-31 20:32 | PN ---
DATE: 05/31/2017 SUBJECTIVE: This patient was seen and evaluated earlier today. Patient has been on antibiotics as per ID for ESBL and E. coli in the urine. Has loose bowel movements. No bleeding. PHYSICAL EXAMINATION VITAL SIGNS: Temperature is 98.7, blood pressure is 151/95, pulse 94. HEENT: Atraumatic. Anicteric. NECK: Supple. HEART: S1 and S2 heard. LUNGS: Bilateral air entry present. ABDOMEN: Soft. No tenderness. Patient has indwelling Ceron catheter. LABORATORY DATA: Hemoglobin is stable 14.9, done yesterday. IMPRESSION: This 56-year-old patient initially admitted with bleeding per rectum. CAT scan shows questionable thickening/possible inflammatory changes of the sigmoid and rectal area,, but patient has no further episodes of bleeding and no pain or tenderness. Patient has an extended-spectrum beta-lactamases in the urine and the patient has been on antibiotics. Patient has loose bowel movements. Clostridium difficile done in the past was negative. We would continue to followup. Continue antibiotics as per Infectious Disease. Patient would benefit from elective colonoscopic evaluation. At the present time, we will defer it in view of this antibiotic therapy and hemoglobin has been stable and with no further episodes of bleeding. Bandar Bateman MD [facility]
[2017-05-31] MEDS: Insulin Detemir 100 units/ml Vial (Levemir) SC SCH (22:18)
[2017-06-01] MEDS: Albuterol-Ipratrop 3 mg / 0.5 (3 ml) UD IH SCH ×3 (02:05→13:37)
[2017-06-01] MEDS: Gentamicin 180 MG in Sodium Chloride 0.9% 100 ML IVPB SCH (05:56)
[2017-06-01 07:53] VITALS: BP 163/90; PULSE 73; RESP 19; TEMP 99.1; O2SAT 94
[2017-06-01] MEDS: Insulin Reg-LOW-Coverage SC SCH ×2 (08:13→12:22)
--- NOTE | 2017-06-01 08:20 | PN ---
DATE: 05/31/2017 REFERRING PHYSICIAN: Thalia Frazier MD. SUBJECTIVE: The patient is lying in the bed, head at 45 degrees. Night was unremarkable. Tolerates CPAP/BiPAP well. No headache. No rhinitis. No cough. No nausea. Still has a vague abdominal discomfort. No leg swelling. OBJECTIVE: GENERAL: In no acute distress. VITAL SIGNS: Temperature is 98, heart rate 74, respiratory rate is 20, blood pressure 151/95, pulse ox 95% on 35% oxygen. HEENT: Moist mucous membranes. Crowded airway. NECK: Supple. No JVD. LUNGS: Fair airflow with rhonchi. HEART: S1 and S2. ABDOMEN: Positive bowel sounds. Mild tenderness. EXTREMITIES: There is no edema. NEUROLOGIC: Awake, alert, follows simple commands. MEDICATIONS: He is on DuoNeb q. 6 hours, Flagyl 500 mg q. 8 hours, gentamicin 180 mg q. 8 hours, Levemir 10 units subcutaneously at bedtime, metoprolol tartrate 25 mg twice a day. He is on melatonin 5 mg daily. Pepcid 20 mg twice a day, Singulair 10 mg daily, Tylenol p.r.n. basis, vancomycin 1 g IV q. 12 hours, and Zestril 20 mg twice a day. LABORATORY DATA: Shows INR 1.77. Blood sugar 181. Stool occult blood yesterday was negative. Urine has E. coli. IMPRESSION AND PLAN: Bladder outlet obstruction with recurrent urinary tract infection, has extended-spectrum beta-lactamases; chronic obstructive lung disease; obstructive sleep apnea syndrome; obesity; paraplegia. Pulmonary point of view, doing okay. Keep head at 45 degrees. Continue bronchodilator, BiPAP while sleeping, being followed by GI, on antibiotics, and we will follow with you. Yosef Dunbar MD
[2017-06-01] MEDS: Vancomycin 1gm in NS 250ml 1 GM/250 ML BAG IVPB SCH (09:34)
--- NOTE | 2017-06-01 16:57 | CP.PCM.PN ---
Subjective - Date & Time of Evaluation Date of Evaluation: 06/01/17 Time of Evaluation: 13:45 - Subjective Subjective: Infectious Disease Follow Up: June 01, 2017 56 yo male with morbid obesity sent to [facility] for change of montague catheter and pain around catheter site. The patient is also claiming blood in his bowel movements. The patient denies fevers, chills, nausea, vomiting, diarrhea, headaches, dizziness, chest pain, abdominal pain, melena, hematuria, hematemesis, hematochezia. Patient was originally admitted for possible GI bleed. The patient was found to have positive urine cultures for ESBL+ E. Coli and Enterococcus. Continued on IV Vancomycin and Gentamicin for antibiotic coverage. Looking for 7 days of coverage. No significant complaints. Objective - Vital Signs/Intake and Output Vital Signs (last 24 hours): Temp Pulse Resp BP Pulse Ox 99.1 F 73 19 163/90 H 94 L 06/01/17 07:53 06/01/17 09:33 06/01/17 07:53 06/01/17 09:33 06/01/17 07:53 Intake and Output: 06/01/17 06/01/17 06:59 18:59 Intake Total 840 Output Total 1450 Balance -610 - Labs Labs: 05/30/17 06:45 05/30/17 23:50 PT 19.7 SECONDS (9.4-12.5) H 05/31/17 06:50 INR 1.77 (0.93-1.08) H 05/31/17 06:50 APTT 45.2 Seconds (25.1-36.5) H 05/26/17 16:11 - Constitutional Appears: Non-toxic, No Acute Distress, Chronically Ill - Head Exam Head Exam: ATRAUMATIC, NORMOCEPHALIC Additional comments: dryness of facial skin - Eye Exam Eye Exam: EOMI, PERRL Pupil Exam: NORMAL ACCOMODATION, PERRL - ENT Exam ENT Exam: Mucous Membranes Moist, Normal External Ear Exam, TM's Normal Bilaterally - Neck Exam Neck Exam: Full ROM, Normal Inspection - Respiratory Exam Respiratory Exam: Clear to Ausculation Bilateral, NORMAL BREATHING PATTERN. absent: Rales, Rhonchi, Wheezes - Cardiovascular Exam Cardiovascular Exam: REGULAR RHYTHM, RRR, +S1, +S2 - GI/Abdominal Exam GI & Abdominal Exam: Soft, Normal Bowel Sounds. absent: Distended, Tenderness - Extremities Exam Additional comments: paraplegia - Neurological Exam Neurological Exam: Alert, Awake, CN II-XII Intact, Oriented x3 - Psychiatric Exam Psychiatric exam: Normal Affect, Normal Mood - Skin Skin Exam: Intact (p), Normal Color Assessment and Plan - Assessment and Plan (Free Text) Assessment: 56 yo male with reports of blood in stool. The patient has multiple medical issues including obesity, paraplegia, CHF, COPD, blindness in left eye, and history of multiple UTIs. The patient has PCN allergies where he develops facial swelling and lip swelling. The patient was found to have positive urine cultures with ESBL + E. coli and Enterococcus. Start Vancomycin and Aminoglycoside for antibiotic treatment while monitoring renal function. Supportive care. He will need 7 days of antibiotic care. Vancomycin 1gm q12hrs and Gentamicin 180 mg q8hrs. Thank you for allowing me to participate in the care of the patient, we will follow with you.
--- NOTE | 2017-06-01 21:16 | PN ---
DATE: 05/31/2017 See the previously dictated consultation note. SUBJECTIVE: The patient is now here, resting comfortably, and being treated with his antibiotics. PAST MEDICAL AND SURGICAL HISTORY: No other changes. REVIEW OF SYSTEM: As listed above. PHYSICAL EXAMINATION GENERAL: The Ceron catheter is draining well. DIAGNOSES: 1. Recurrent urinary tract infections. 2. Urinary retention. 3. Difficult catheter change. PLAN: As follows, Ceron catheter drainage and antibiotic therapy here or in the [facility] as per medical team. Urology outpatient followup. Ankit Ly MD
--- NOTE | 2017-06-02 01:37 | OP ---
PROCEDURE DATE: BEDSIDE PROCEDURE PROCEDURE: A complicated removal and insertion of Ceron catheter. DESCRIPTION OF PROCEDURE: Under sterile technique, the Ceron catheter was removed with difficulty and with skilled nursing case manager. I could not do it by myself. I prepped the patient in sterile fashion. I inserted Ceron catheter. It took a tremendous effort to grab the shaft of the penis to provide catheter traction mode. But with some difficulty, we were able to do so, may be somewhat uncomfortable for the patient, but we able to it. When we tried just to insert the catheter, this was too difficult, that would be expected. Overall, the patient tolerated the procedure well without complications. Ankit Ly MD
--- NOTE | 2017-06-02 06:19 | PN ---
DATE: 06/01/2017 SUBJECTIVE: This patient was seen and evaluated earlier today. No bleeding per rectum. No abdominal pain, had some loose bowel movements before, now he is improving. PHYSICAL EXAMINATION: VITAL SIGNS: Temperature 99.1, blood pressure 163/90, pulse 73, respirations 19, and O2 saturations 94%. HEENT: Atraumatic, anicteric. NECK: Supple. HEART: S1 and S2 heard. LUNGS: Bilateral air entry present. ABDOMEN: Soft. There is no tenderness. EXTREMITIES: Bilateral edema present. LABORATORY DATA: Blood sugar 139.. IMPRESSION: This is a 56-year-old patient with paraplegia, has an indwelling Ceron catheter, admitted with bleeding per rectum. The CAT scan done showed questionable hazy changes surrounding the sigmoid colon suggestive of possible sigmoid colitis. Clinically, no further episodes of bleeding noticed. The patient is being on anticoagulation. Stool for Clostridium difficile is negative. The patient has ESBL and also enterococcus in the urine. On antibiotics as per Infectious Disease. Planned to be discharged home. I would strongly recommend the elective colonoscopic evaluation. Thank you very much for allowing us to participate in the care of the patient. Bandar Bateman MD MTDD
--- NOTE | 2017-06-02 06:59 | CON ---
DATE: 05/26/2017 UROLOGY CONSULTATION REASON FOR CONSULTATION: Urinary retention and difficult catheter change. HISTORY OF PRESENT ILLNESS: This is a very pleasant gentlemen who is currently in [facility] under the care of Dr. Frazier. He lives in a [place]. Catheter has stopped working and he is here now and Urology is consulted. See below plans. PAST MEDICAL AND SURGICAL HISTORY: As listed on the chart. The patient is essentially bed bound and lives in [place]. REVIEW OF SYSTEMS: As listed above, otherwise, noncontributory. MEDICATIONS: See chart. ALLERGIES: SEE CHART. PHYSICAL EXAMINATION GENERAL: A well-nourished male, he is resting comfortably in his bed. VITAL SIGNS: Within normal limits. ABDOMEN: Soft. Relatively difficulty to evaluate for distention. Ceron catheter is in place and now draining better after irrigation. DIAGNOSES: Urinary retention and faulty catheter. PLAN: It is time to change the catheter. See the physical exam as described. Because of the patient's hidden penis, nobody was very comfortable to changing the catheter. See my separate procedure note, it was done at the bedside procedure note, even I had tremendous difficulty inserting a Ceron catheter, but a new catheter has been inserted and the Ceron is draining clear yellow urine. FINAL DIAGNOSES: Urinary retention, voiding dysfunction, and a positive urine culture with a resistant bacteria, as mentioned above. PLAN: As follows; the antibiotic therapy as per the medical team. From a Urology standpoint, the patient will have a new Ceron. Ankit Ly MD
--- NOTE | 2017-06-02 18:30 | DS ---
CHIEF COMPLAINT: Gastrointestinal bleeding. HISTORY OF PRESENT ILLNESS: Mr. Marcus Valdovinos is a 56-year-old male, resident of [facility], history of paraplegia, COPD, congestive heart failure, chronic indwelling Ceron catheter, history of bunionectomy, and history of UTI in the past, came to the emergency room for evaluation of Ceron catheter change and having bleeding with the stool. Actually, rehab called me, we were trying to do stat PT/INR because the patient has been on Coumadin, meanwhile the patient decided to go to the hospital, called 911 and came to the hospital. We did CAT scan of abdomen and pelvis. Seen by Dr. Ankit Ly, urologist and he changed the catheter, seen by Dr. Nic Vigil for UTI. saw the patient for GI bleeding. The patient improved, no more GI bleeding. According to Dr. Vigil, we have to keep IV antibiotics, put midline and sent the patient home with IV antibiotics. 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 FAMILY HISTORY: Father and mother, noncontributory. HABITS: Former smoker. No smoking, no drug, no ethanol now. ALLERGIES: THE PATIENT IS ALLERGIC TO PENICILLIN. HOME MEDICATIONS: Reviewed by me. REVIEW OF SYSTEMS: The patient seen and examined at the bedside, looking comfortable. No nausea, vomiting or diarrhea. No hematuria or hematochezia. No swelling of the legs. No chest pain, no palpitation, no headache, no dizziness. No fever, no chills. PHYSICAL EXAMINATION: VITAL SIGNS: Temperature 99.9, pulse is 72, blood pressure 163/90, respiratory rate 19. HEENT: Head normocephalic and atraumatic. Eyes, PERRLA. Extraocular movements are intact. Conjunctivae clear. Nose patent. Mucous membranes moist. NECK: Supple. No carotid bruit or thyromegaly. CHEST: Bilaterally symmetrical. HEART: S1 and S2 positive. LUNGS: Clear to auscultation. ABDOMEN: Soft. Bowel sounds present. No organomegaly. EXTREMITIES: Witnessed edema. NEUROLOGIC: The patient is awake and alert, obeying simple orders. LABORATORY DATA: White blood cell 9.4, on admission it was 14.8; hemoglobin 14.9; hematocrit 46.4; platelets 211,000. Sodium 136, potassium 3.4, BUN 11, creatinine 0.8; glucose 176, 145 and 135. ASSESSMENT AND PLAN: Mr. Marcus Valdovinos is a 56-year-old male with leukocytosis, diabetes mellitus, hematuria, urinary tract infection, came with gastrointestinal bleeding and change of Ceron catheter, Dr. Ankit Ly changed the Ceron catheter. The patient had multiple medical issues including obesity, paraplegia, congestive heart failure, chronic obstructive pulmonary disease, blindness of the left eye, history of multiple urinary tract infections. THE PATIENT IS ALLERGIC TO PENICILLIN. The patient has positive urine culture with extended-spectrum beta-lactamase plus Escherichia coli and Enterococcus, started vancomycin and aminoglycoside for antibiotic treatment while monitoring the renal function. He will need 7 days antibiotics, vancomycin 1 g q. 12 hours and gentamicin 180 mg q. 8 hours. Today, we put the midline and sent the patient back to [facility] with the continuity of antibiotics 7 more days. We will follow up there. Thalia Frazier MD MTDFátima
== END 2017-06-01 14:54 | DRG 699 ==
LOC: ED 14:08 → ERH 18:19 → 3RNO 21:22
PROVIDERS: ADMIT Internal Medicine; ATTEND Internal Medicine
DX: T83.511A Infection and inflammatory reaction due to indwelling urethral catheter, initial encounter (principal); I13.0 Hypertensive heart and chronic kidney disease with heart failure and stage 1 through stage 4 chronic kidney disease, or unspecified chronic kidney disease; E11.22 Type 2 diabetes mellitus with diabetic chronic kidney disease; N31.9 Neuromuscular dysfunction of bladder, unspecified; E11.65 Type 2 diabetes mellitus with hyperglycemia; I50.9 Heart failure, unspecified; B35.9 Dermatophytosis, unspecified; Z68.43 Body mass index [BMI] 50.0-59.9, adult; N39.0 Urinary tract infection, site not specified; N32.0 Bladder-neck obstruction; R79.1 Abnormal coagulation profile; Z16.12 Extended spectrum beta lactamase (ESBL) resistance; B96.20 Unspecified Escherichia coli [E. coli] as the cause of diseases classified elsewhere; E66.01 Morbid (severe) obesity due to excess calories; G47.33 Obstructive sleep apnea (adult) (pediatric); H54.62 Unqualified visual loss, left eye, normal vision right eye; J44.9 Chronic obstructive pulmonary disease, unspecified; K52.9 Noninfective gastroenteritis and colitis, unspecified; N18.9 Chronic kidney disease, unspecified; Z79.01 Long term (current) use of anticoagulants; Z79.4 Long term (current) use of insulin; Z86.73 Personal history of transient ischemic attack (TIA), and cerebral infarction without residual deficits; Z87.440 Personal history of urinary (tract) infections; Z87.891 Personal history of nicotine dependence; Z88.0 Allergy status to penicillin; Z87.892 Personal history of anaphylaxis; R32 Unspecified urinary incontinence; Z86.69 Personal history of other diseases of the nervous system and sense organs

== ENCOUNTER 2017-07-09 21:22 | Inpatient (IN) | payer MEDICARE, MEDICAID ==
[2017-07-09 21:23] VITALS: PULSE 90; BMI 55.3
--- NOTE | 2017-07-09 21:38 | ED PDOC ---
Arrival/HPI - General Chief Complaint: Male Genitourinary Time Seen by Provider: 07/09/17 21:31 Historian: Patient, [facility] - History of Present Illness Narrative History of Present Illness (Text): 07/09/17 21:38 Marcus Valdovinos is a 56 year old male, whose past medical history includes paraplegia, COPD, CHF, chronic indwelling Mccauley catheter, multiple UTIs, asthma , spinal tumor, and diabetes, who presents to the Emergency department sent from [facility] complaining of pain at Mccauley catheter site today. Patient also complaining of diarrhea. Patient denies any fever, chest pain, shortness of breath, nausea, vomiting, neck pain, headache, dizziness, or any other complaints. Symptom Onset: Gradual Symptom Course: Unchanged Activities at Onset: Light Context: Home Past Medical History - Provider Review Nursing Documentation Reviewed: Yes - Infectious Disease Hx of Infectious Diseases: None - Cardiac Hx Pacemaker: No - Pulmonary Hx Respiratory Disorders: Yes (USED TO SMOKE CIGARETTES 1 PK LASTS 3 WEEKS.) Hx Asthma: Yes Hx Chronic Obstructive Pulmonary Disease (COPD): Yes - Neurological Hx Neurological Disorder: Yes (SYNCOPE) HX Cerebrovascular Accident: Yes Other/Comment: Paraplegia/ spinal tumor-WITH SX - HEENT Hx HEENT Disorder: Yes Hx Blind: Yes (left eye) - Renal Hx Renal Disorder: Yes (UROSEPSIS MULTIPLE TIMES. MCCAULEY CATH. NEUROPATHIC BLADDER) - Endocrine/Metabolic Hx Endocrine Disorders: Yes Hx Diabetes Mellitus Type 2: Yes - Hematological/Oncological Hx Cancer: No - Integumentary Hx Dermatological Disorder: Yes Other/Comment: ABDOMINAL FOLDS MASD,BILATERAL LE SKIN DRYNESS,LARGE THIN FLAKES, LIGHT BROWN SKIN DISCOLORATION,RIGHT BIG TOE WITH FLUSHED SKIN,SWELLING.STATES NAIL WAS CLIPPED AND NEVER HEALED. - Musculoskeletal/Rheumatological Hx Falls: No - Gastrointestinal Hx Gastrointestinal Disorders: Yes Other/Comment: Morbid obesity, incONTINENT - Genitourinary/Gynecological Hx Genitourinary Disorders: Yes Hx Incontinence: Yes Hx Urinary Tract Infection: Yes Other/Comment: chronic Urinary catheter - Psychiatric Hx Psychophysiologic Disorder: No Hx Substance Use: No - Surgical History Hx Mastectomy: No - Anesthesia Hx Anesthesia: Yes Hx Anesthesia Reactions: No Hx Malignant Hyperthermia: No Family/Social History - Physician Review Nursing Documentation Reviewed: Yes Family/Social History: Unknown Family HX Smoking Status: Former Smoker Hx Alcohol Use: Yes (OCCASIONALLY) Hx Substance Use: No Allergies/Home Meds Allergies/Adverse Reactions: Allergies Penicillins Allergy (Verified 03/17/17 17:15) ANAPHYLAXIS Home Medications: Home Meds Medication Instructions Recorded Confirmed Aspirin [Ecotrin] 81 mg PO DAILY 07/10/17 07/10/17 Famotidine [Pepcid] 20 mg PO HS 07/10/17 07/10/17 Insulin Detemir [Levemir] 10 units SC HS 07/10/17 07/10/17 Levalbuterol [Xopenex] 1.25 ml NEB Q6 07/10/17 07/10/17 Lisinopril [Zestril] 20 mg PO BID 07/10/17 07/10/17 Metoprolol Tartrate [Lopressor] 25 mg PO BID 07/10/17 07/10/17 Singulair 10 mg PO HS 07/10/17 07/10/17 Warfarin [Coumadin] 6 mg PO QD5 07/10/17 07/10/17 Warfarin [Coumadin] 7 mg PO SUN 07/10/17 07/10/17 Review of Systems - Physician Review All systems were reviewed & negative as marked: Yes - Review of Systems Constitutional: Normal. absent: Fevers Eyes: Normal ENT: Normal Respiratory: Normal. absent: SOB, Cough Cardiovascular: Normal. absent: Chest Pain Gastrointestinal: Diarrhea. absent: Abdominal Pain, Vomiting Genitourinary Male: Other (+pain at Mccauley site) Musculoskeletal: Normal. absent: Back Pain Skin: Normal. absent: Rash Neurological: Normal Endocrine: Normal Hemo/Lymphatic: Normal Psychiatric: Normal Physical Exam Vital Signs Reviewed: Yes Vital Signs Temp Pulse Resp BP Pulse Ox 07/10/17 00:45 104 H 20 143/71 95 07/09/17 22:57 107 H 18 117/98 H 95 07/09/17 21:44 97.6 F 112 H 18 121/76 95 Temperature: Afebrile Blood Pressure: Normal Pulse: Tachycardic Respiratory Rate: Normal Appearance: Positive for: Well-Appearing, Non-Toxic, Comfortable Pain Distress: None Mental Status: Positive for: Alert and Oriented X 3 - Systems Exam Head: Present: Atraumatic, Normocephalic Pupils: Present: PERRL Extroacular Muscles: Present: EOMI Conjunctiva: Present: Normal Mouth: Present: Moist Mucous Membranes Neck: Present: Normal Range of Motion Respiratory/Chest: Present: Clear to Auscultation, Good Air Exchange. No: Respiratory Distress, Accessory Muscle Use Cardiovascular: Present: Regular Rate and Rhythm, Normal S1, S2. No: Murmurs Abdomen: Present: Normal Bowel Sounds. No: Tenderness, Distention, Peritoneal Signs Genitourinary Male: Present: Other (Mccauley catheter in place) Back: Present: Normal Inspection Upper Extremity: Present: Normal Inspection. No: Cyanosis, Edema Lower Extremity: No: Edema Neurological: Present: GCS=15, CN II-XII Intact, Speech Normal Skin: Present: Warm, Dry, Normal Color. No: Rashes Psychiatric: Present: Alert, Oriented x 3, Normal Insight, Normal Concentration Medical Decision Making ED Course and Treatment: 07/09/17 21:38 Impression: 56 year old male complaining of pain at Mccauley catheter site and diarrhea. Differential Diagnosis included but are not limited to: UTI Plan: -- Labs, blood cultures -- Urinalysis, urine cultures -- Reassess and disposition Prior Visits: Notes and results from previous visits were reviewed. On 05/26/2017, pt was seen in the Emergency department for mccauley catheter change , pain around perineum, and hematochezia. Pt was admitted to the hospital for further evaluation. Progress Notes: Bladder Scan performed by RN. 220 cc of urine noted in bladder. 07/09/17 23:[address] Frazier, who is aware and agrees with plan. Accepts pt in to her service. Pt admitted to [facility] for UTI. 07/10/17 00:46 Chest X-ray reviewed, shows no acute processes. - Lab Interpretations Lab Results: 07/09/17 22:20 07/09/17 22:20 Lab Results 07/09/17 23:00: Urine Color Light yellow, Urine Appearance Turbid, Urine pH 7.0 , Ur Specific [place] 1.015, Urine Protein 30 H, Urine Glucose (UA) Negative, Urine Ketones Negative, Urine Blood Large H, Urine Nitrate Positive H, Urine Bilirubin Negative, Urine Urobilinogen 0.2, Ur Leukocyte Esterase Large H, Urine RBC Tntc, Urine WBC Tntc, Urine Bacteria Many 07/09/17 22:20: Sodium 136, Potassium 5.1 H, Chloride 97 L, Carbon Dioxide 26, Anion Gap 18, BUN 26 H, Creatinine 1.1, Est GFR ( Amer) > 60, Est GFR ( Non-Af Amer) > 60, Random Glucose 196 H, Calcium 9.8, Total Bilirubin 0.8, AST 40, ALT 31, Alkaline Phosphatase 73, Total Protein 7.9, Albumin 3.8, Globulin 4.1, Albumin/Globulin Ratio 0.9 L 07/09/17 22:20: WBC 22.6 H D, RBC 6.26 H, Hgb 17.6 D, Hct 52.6 H, MCV 84.0, MCH 28.1, MCHC 33.5, RDW 14.4, Plt Count 303, MPV 11.3 H, Gran % 85.4 H, Lymph % (Auto) 6.2 L, [place] % (Auto) 7.8 H, Eos % (Auto) 0.5 L, Baso % (Auto) 0.1, Gran # 19.25 H, Lymph # (Auto) 1.4, [place] # (Auto) 1.8 H, Eos # (Auto) 0.1, Baso # (Auto) 0.03 I have reviewed the lab results: Yes - RAD Interpretation Doctor Of Osteopathy: ED Physician - Medication Orders Current Medication Orders: Acetaminophen (Tylenol 325mg Tab) 650 mg PO Q4H PRN PRN Reason: Fever >100.5 F Aspirin (Ecotrin) 81 mg PO DAILY GREG Famotidine (Pepcid) 20 mg PO HS GREG Hydromorphone HCl (Dilaudid) 0.5 mg IVP Q6H PRN PRN Reason: Pain, moderate (4-7) Last Admin: 07/10/17 15:54 Dose: 0.5 mg LAYO Pain Assessment Document 07/10/17 15:54 SD (Rec: 07/10/17 15:55 SD [id number] Pain Reassessment Is this a pain reassessment? No Presence of Pain Presence of Pain Yes Pain Scale Used Pain Scale Used Numeric Location Left, Right or Bilateral Left Upper or Lower Lower Pain Location Body Site Back Lumbar Description Description Intermittent Intensity of Pain at present 7 IVP Administration Document 07/10/17 15:54 SD (Rec: 07/10/17 15:55 SD [id number] Charges for Administration # of IVP Administrations 1 Re-Assess: LAYO Pain Assessment Document 07/10/17 16:54 SD (Rec: 07/10/17 17:10 SD [id number]) Pain Reassessment Is this a pain reassessment? Yes Sleep Is patient sleeping during reassessment? Yes Aztreonam (Azactam 1 Gm) 100 mls @ 100 mls/hr IVPB Q8 GREG PRN Reason: Protocol Stop: 07/17/17 06:31 Last Admin: 07/10/17 13:12 Dose: 100 mls/hr eMAR Start Stop Document 07/10/17 13:12 SD (Rec: 07/10/17 13:13 SD [id number]) Intravenous Solution Start Date 07/10/17 Start Time 13:12 End Date 07/10/17 End time 14:13 Total Infusion Time 61 Insulin Detemir (Levemir) 10 unit SC HS [facility] Insulin Human Lispro (Humalog Low) 0 units SC ACHS GREG PRN Reason: Protocol Last Admin: 07/10/17 17:10 Dose: Not Given Non-Admin Reason: Blood Sugar Parameter Levalbuterol HCl (Xopenex) 1.25 mg IH [id number] PRN PRN Reason: Shortness of Breath Lisinopril (Zestril) 20 mg PO BID [facility] Last Admin: 07/10/17 17:20 Dose: 20 mg [facility] Pulse and Blood Pressure Document 07/10/17 17:20 SD (Rec: 07/10/17 17:20 SD [id number]) Pulse Pulse Rate (60-90) 82 Blood Pressure Blood Pressure (100/60-150/90) 121/77 Metoprolol Tartrate (Lopressor) 25 mg PO BRKDIN [facility] Last Admin: 07/10/17 17:20 Dose: 25 mg MAR Pulse and Blood Pressure Document 07/10/17 17:20 SD (Rec: 07/10/17 17:20 SD [id number]) Pulse Pulse Rate (60-90) 82 Blood Pressure Blood Pressure (100/60-150/90) 121/77 Montelukast Sodium (Singulair) 10 mg PO HS GREG Discontinued Medications Aztreonam (Azactam 1 Gm) 100 mls @ 100 mls/hr IVPB STAT STA PRN Reason: Protocol Stop: 07/10/17 00:09 Last Admin: 07/10/17 00:11 Dose: 100 mls/hr eMAR Start Stop Document 07/10/17 00:11 AD (Rec: 07/10/17 00:12 AD [id number]) Intravenous Solution Start Date 07/10/17 Start Time 00:12 Vancomycin HCl (Vancomycin 1gm) 1 gm in 250 mls @ 167 mls/hr IVPB STAT STA PRN Reason: Protocol Stop: 07/10/17 00:39 Last Admin: 07/10/17 01:15 Dose: 167 mls/hr eMAR Start Stop Document 07/10/17 01:15 CNR (Rec: 07/10/17 01:16 CNR [id number]) Intravenous Solution Start Date 07/10/17 Start Time 01:15 Sodium Chloride (Sodium Chloride 0.9%) 1,000 mls @ 100 mls/hr IV .Q10H STA Stop: 07/10/17 09:45 Last Admin: 07/10/17 00:12 Dose: 100 mls/hr eMAR Start Stop Document 07/10/17 00:12 AD (Rec: 07/10/17 00:12 AD [id number]) Intravenous Solution Start Date 07/10/17 Start Time 00:12 - Scribe Statement The provider has reviewed the documentation as recorded by the Francois Nogueira Provider Scribe Attestation: All medical record entries made by the Scribe were at my direction and personally dictated by me. I have reviewed the chart and agree that the record accurately reflects my personal performance of the history, physical exam, medical decision making, and the department course for this patient. I have also personally directed, reviewed, and agree with the discharge instructions and disposition. Disposition/Present on Arrival - Present on Arrival Any Indicators Present on Arrival: No History of DVT/PE: No History of Uncontrolled Diabetes: Yes Urinary Catheter: Yes History of Decub. Ulcer: No History Surgical Site Infection Following: None - Disposition Have Diagnosis and Disposition been Completed?: Yes Diagnosis: UTI (urinary tract infection) Disposition: HOSPITALIZED Disposition Time: 23:10 Patient Problems: Current Active Problems Problem Status Onset Coagulopathy Acute Hematuria Acute Hyperkalemia Acute Proteinuria Acute Condition: FAIR
[2017-07-09 22:38] LABS: BASO # 0.03 K/mm3 (0.0-2.0); BASO % 0.1 % (0.0-3.0); EOS # 0.1 (0.0-0.7); EOS % 0.5 % (1.5-5.0); GRAN # 19.25 (1.4-6.5); GRAN % 85.4 % (50.0-68.0); HEMOGLOBIN 17.6 g/dL (14.0-18.0); LYMPH # 1.4 (1.2-3.4); LYMPH % 6.2 % (22.0-35.0); MEAN CORPUSCULAR HEMOGLOBIN 28.1 pg (25.0-35.0); MEAN CORPUSCULAR HGB CONC 33.5 g/dl (31.0-37.0); MEAN PLATELET VOLUME 11.3 fl (7.0-11.0); MONO # 1.8 (0.1-0.6); MONO % 7.8 % (1.0-6.0); RBC 6.26 10^6/uL (3.5-6.1); RED CELL DISTRIBUTION WIDTH 14.4 % (11.5-14.5); WHITE BLOOD COUNT 22.6 10^3/ul (4.5-11.0)
[2017-07-09 22:44] LABS: CALCIUM 9.8 mg/dL (8.4-10.5); GFR AFRICAN-AMERICAN > 60; GFR NON-AFRICAN AMERICAN > 60
[2017-07-09 23:05] LABS: ALB/GLOB RATIO 0.9 (1.1-1.8); ALBUMIN 3.8 g/dL (3.0-4.8); ALT/SGPT 31 U/L (7-56); AST/SGOT 40 U/L (17-59); BLOOD UREA NITROGEN 26 mg/dL (7-21)
[2017-07-09] MEDS ORDERED: Aztreonam 1 Gm in NS 100mL 100 ML IVPB STA (23:10)
[2017-07-09] MEDS ORDERED: Vancomycin 1gm in NS 250ml 1 GM/250 ML BAG IVPB STA (23:10)
[2017-07-09 23:39] LABS: URINE BILIRUBIN NEGATIVE (NEGATIVE); URINE BLOOD LARGE (NEGATIVE); URINE GLUCOSE (UA) NEGATIVE (NEGATIVE); URINE LEUKOCYTE ESTERASE LARGE Leu/uL (NEGATIVE); URINE NITRATE POSITIVE (NEGATIVE); URINE PROTEIN 30 mg/dL (<30 mg/dL); URINE UROBILINOGEN 0.2 E.U./dL (<1 E.U./dL)
[2017-07-09 23:43] LABS: URINE APPEARANCE TURBID (CLEAR); URINE COLOR LIGHT YELLOW (YELLOW)
[2017-07-09] MEDS ORDERED: Sodium Chloride 0.9% 1,000 ML IV STA (23:46)
[2017-07-09 23:57] LABS: URINE BACTERIA MANY (NEG); URINE RBC TNTC /hpf (0-2); URINE WBC TNTC /hpf (0-6)
[2017-07-10] MEDS: Aztreonam 1 Gm in NS 100mL 100 ML IVPB SCH ×3 (07:08→21:52)
--- NOTE | 2017-07-10 10:18 | RAD ---
HISTORY: cp COMPARISON: 01/16/2017 FINDINGS: LUNGS: No active pulmonary disease. PLEURA: No significant pleural effusion identified, no pneumothorax apparent. CARDIOVASCULAR: Mild cardiomegaly and mild vascular congestion OSSEOUS STRUCTURES: No significant abnormalities. VISUALIZED UPPER ABDOMEN: Normal. OTHER FINDINGS: None. IMPRESSION: No active disease.
[2017-07-10] MEDS ORDERED: Levalbuterol 1.25 MG/3 ML Inhal Soln UD IH PRN (12:38)
[2017-07-10 13:40] LABS: PARTIAL THROMBOPLASTIN TIME 43.5 Seconds (25.1-36.5)
--- NOTE | 2017-07-10 13:51 | CP.PCM.CON ---
History of Present Illness - History of Present Illness History of Present Illness: 56 year old male with PMH of HTN, DM, morbid obesity with BMI 53, chronic montague catheter use typically changed every month, chronic atrial fibrillation, S/P laminectomy in 2015, morbid obesity with BMI [address] [facility] from the senior living because he was complaining of pain along the Montague catheter. The patient denies abdominal pain, no flank pain, on hematuria, no fevers or chills, no nausea or vomiting, no chest pain, no SOB, no headache or dizziness, no cough or colds, no sore throat, no rhinorrhea, no chest pain. Urinalysis showed pyuria. Infectious diseases consult is requested to further evaluate and manage. Review of Systems - Review of Systems All systems: reviewed and no additional remarkable complaints except (as per HPI ) Past Patient History - Infectious Disease Hx of Infectious Diseases: None - Past Medical History & Family History Past Medical History?: Yes - Past Social History Smoking Status: Smoker Currrent Status Unknown - CARDIAC Hx Cardiac Disorders: Yes Hx Cardia Arrhythmia: Yes (Afib) Hx Congestive Heart Failure: Yes Hx Pacemaker: No - PULMONARY Hx Respiratory Disorders: Yes (USED TO SMOKE CIGARETTES 1 PK LASTS 3 WEEKS.) Hx Asthma: Yes Hx Chronic Obstructive Pulmonary Disease (COPD): Yes - NEUROLOGICAL Hx Neurological Disorder: Yes (SYNCOPE) HX Cerebrovascular Accident: Yes Other/Comment: Paraplegia/ spinal tumor-WITH SX - HEENT Hx HEENT Problems: Yes Hx Blind: Yes (left eye) - RENAL Hx Chronic Kidney Disease: Yes (UROSEPSIS MULTIPLE TIMES. MONTAGUE CATH. NEUROPATHIC BLADDER) - ENDOCRINE/METABOLIC Hx Endocrine Disorders: Yes Hx Adrenal Cancer: No Hx Diabetes Mellitus Type 2: Yes - HEMATOLOGICAL/ONCOLOGICAL Hx Cancer: No - INTEGUMENTARY Hx Dermatological Problems: Yes Other/Comment: ABDOMINAL FOLDS MASD,BILATERAL LE SKIN DRYNESS,LARGE THIN FLAKES, LIGHT BROWN SKIN DISCOLORATION,RIGHT BIG TOE WITH FLUSHED SKIN,SWELLING.STATES NAIL WAS CLIPPED AND NEVER HEALED. - MUSCULOSKELETAL/RHEUMATOLOGICAL Hx Falls: No - GASTROINTESTINAL Hx Gastrointestinal Disorders: Yes Other/Comment: Morbid obesity, incontinent - GENITOURINARY/GYNECOLOGICAL Hx Genitourinary Disorders: Yes Hx Incontinence: Yes Hx Urinary Tract Infection: Yes Other/Comment: chronic Urinary catheter - PSYCHIATRIC Hx Psychophysiologic Disorder: No Hx Substance Use: No - SURGICAL HISTORY Hx Surgeries: Yes - ANESTHESIA Hx Anesthesia: Yes Hx Anesthesia Reactions: No Hx Malignant Hyperthermia: No Meds Allergies/Adverse Reactions: Allergies Allergy/AdvReac Type Severity Reaction Status Date / Time Penicillins Allergy ANAPHYLAXIS Verified 03/17/17 17:15 - Medications Medications: Current Medications Acetaminophen (Tylenol 325mg Tab) 650 mg PO Q4H PRN PRN Reason: Fever >100.5 F Sodium Chloride (Sodium Chloride 0.9%) 1,000 mls @ 100 mls/hr IV .Q10H STA Stop: 07/10/17 09:45 Last Admin: 07/10/17 00:12 Dose: 100 mls/hr Physical Exam - Constitutional Appears: Non-toxic, Chronically Ill - Head Exam Head Exam: NORMAL INSPECTION - ENT Exam ENT Exam: Mucous Membranes Moist - Neck Exam Neck exam: Negative for: Lymphadenopathy, Meningismus - Respiratory Exam Respiratory Exam: Decreased Breath Sounds - Cardiovascular Exam Cardiovascular Exam: +S1, +S2 - GI/Abdominal Exam GI & Abdominal Exam: Soft. absent: Tenderness Additional comments: montague catheter changed, draining clear yellow urine Results - Vital Signs Recent Vital Signs: Last Vital Signs Temp 98.2 F 07/10/17 03:01 Pulse 99 H 07/10/17 03:01 Resp 18 07/10/17 03:01 BP 118/71 07/10/17 03:01 Pulse Ox 95 07/10/17 00:45 - Labs Result Diagrams: 07/09/17 22:20 07/10/17 13:20 Labs: Laboratory Results - last 24 hr 07/10/17 02:14 POC Glucose (mg/dL) 247 H Assessment & Plan - Assessment and Plan (Free Text) Plan: Assessment consider sepsis due to complicated UTI associated with indwelling montague catheter history of severe sepsis with acute renal failure due to probable complicated UTI associated with indwelling montague catheter, grew ESBL-producing E. coli HTN DM morbid obesity with BMI 53 chronic montague catheter use typically changed every month chronic atrial fibrillation S/P laminectomy in 2014 Plan gave a dose of IV Vancomycin and started Azactam pending urine and blood cx; Montague catheter should be changed will monitor clinically
[2017-07-10 14:07] LABS: PROTHROMBIN TIME 45.6 SECONDS (9.4-12.5)
[2017-07-10 14:09] LABS: INR 3.86 (0.93-1.08)
[2017-07-10] MEDS: HYDROmorphone 0.5 mg/0.5 ml ISec IVP PRN (15:54)
[2017-07-10] MEDS: Insulin Lispro (humaLOG) LOW Coverage SC SCH ×2 (17:10→22:09)
--- NOTE | 2017-07-10 17:34 | CP.PCM.HP ---
<Nataliia Gold - Last Filed: 07/10/17 17:31> History of Present Illness - History of Present Illness History of Present Illness: Chief complaint: Hematuria, Catheter pain 56 yr male resident of [facility] w/ history paraplegia, COPD, CHF, chronic indwelling mccauley catheter, multiple UTIs, asthma , spinal tumor, DM, morbid obesity, & L eye blindness. Pt was c/o hematuria and indwelling catheter pain. He states that he had very little relief of pain with senior living interventions and decided to call 911 himself. He was brought into [facility] where his catheter was changed by hospital staff. Pt denies any fever, chills, nausea, vomiting, abdominal pain, shortness of breath, weakness, numbness, tingling, diarrhea, constipation or urinary changes. Present on Admission - Present on Admission Any Indicators Present on Admission: No History of DVT/PE: No History of Uncontrolled Diabetes: No Urinary Catheter: Yes Decubitus Ulcer Present: No Review of Systems - Constitutional Constitutional: As Per HPI - EENT Eyes: As Per HPI Ears: As Per HPI Nose/Mouth/Throat: As Per HPI - Cardiovascular Cardiovascular: As Per HPI - Respiratory Respiratory: As Per HPI - Gastrointestinal Gastrointestinal: As Per HPI - Genitourinary Genitourinary: As Per HPI - Reproductive: Male Reproductive:Male: As Per HPI - Musculoskeletal Musculoskeletal: As Per HPI - Integumentary Integumentary: As Per HPI - Neurological Neurological: As Per HPI - Psychiatric Psychiatric: As Per HPI - Endocrine Endocrine: As Per HPI - Hematologic/Lymphatic Hematologic: As Per HPI Past Patient History - Infectious Disease Hx of Infectious Diseases: None - Past Medical History & Family History Past Medical History?: Yes - Past Social History Smoking Status: Smoker Currrent Status Unknown - CARDIAC Hx Cardiac Disorders: Yes Hx Cardia Arrhythmia: Yes (Afib) Hx Congestive Heart Failure: Yes Hx Pacemaker: No - PULMONARY Hx Respiratory Disorders: Yes (USED TO SMOKE CIGARETTES 1 PK LASTS 3 WEEKS.) Hx Asthma: Yes Hx Chronic Obstructive Pulmonary Disease (COPD): Yes - NEUROLOGICAL Hx Neurological Disorder: Yes (SYNCOPE) HX Cerebrovascular Accident: Yes Other/Comment: Paraplegia/ spinal tumor-WITH SX - HEENT Hx HEENT Problems: Yes Hx Blind: Yes (left eye) - RENAL Hx Chronic Kidney Disease: Yes (UROSEPSIS MULTIPLE TIMES. MCCAULEY CATH. NEUROPATHIC BLADDER) - ENDOCRINE/METABOLIC Hx Endocrine Disorders: Yes Hx Adrenal Cancer: No Hx Diabetes Mellitus Type 2: Yes - HEMATOLOGICAL/ONCOLOGICAL Hx Cancer: No - INTEGUMENTARY Hx Dermatological Problems: Yes Other/Comment: ABDOMINAL FOLDS MASD,BILATERAL LE SKIN DRYNESS,LARGE THIN FLAKES, LIGHT BROWN SKIN DISCOLORATION,RIGHT BIG TOE WITH FLUSHED SKIN,SWELLING.STATES NAIL WAS CLIPPED AND NEVER HEALED. - MUSCULOSKELETAL/RHEUMATOLOGICAL Hx Falls: No - GASTROINTESTINAL Hx Gastrointestinal Disorders: Yes Other/Comment: Morbid obesity, incontinent - GENITOURINARY/GYNECOLOGICAL Hx Genitourinary Disorders: Yes Hx Incontinence: Yes Hx Urinary Tract Infection: Yes Other/Comment: chronic Urinary catheter - PSYCHIATRIC Hx Psychophysiologic Disorder: No Hx Substance Use: No - SURGICAL HISTORY Hx Surgeries: Yes - ANESTHESIA Hx Anesthesia: Yes Hx Anesthesia Reactions: No Hx Malignant Hyperthermia: No Meds Allergies/Adverse Reactions: Allergies Allergy/AdvReac Type Severity Reaction Status Date / Time Penicillins Allergy ANAPHYLAXIS Verified 03/17/17 17:15 Physical Exam - Constitutional Appears: Chronically Ill - Head Exam Head Exam: ATRAUMATIC, NORMAL INSPECTION, NORMOCEPHALIC - Eye Exam Eye Exam: EOMI, Normal appearance, PERRL Pupil Exam: NORMAL ACCOMODATION, PERRL - ENT Exam ENT Exam: Mucous Membranes Moist, Normal Exam - Neck Exam Neck exam: Positive for: Normal Inspection - Respiratory Exam Respiratory Exam: Clear to Auscultation Bilateral, NORMAL BREATHING PATTERN - Cardiovascular Exam Cardiovascular Exam: REGULAR RHYTHM - GI/Abdominal Exam GI & Abdominal Exam: Normal Bowel Sounds, Soft. absent: Tenderness - Exam Additional comments: mccauley catheter draining, cloudy yellow urine - Extremities Exam Additional comments: discolored BLE - Neurological Exam Neurological exam: Alert, Oriented x3 - Psychiatric Exam Psychiatric exam: Normal Affect, Normal Mood - Skin Skin Exam: Dry, Normal Color, Rash, Warm Results - Vital Signs Recent Vital Signs: Last Vital Signs Temp 97.4 F L 07/10/17 17:15 Pulse 82 07/10/17 17:20 Resp 18 07/10/17 17:15 BP 121/77 07/10/17 17:20 Pulse Ox 95 07/10/17 17:15 - Labs Result Diagrams: 07/09/17 22:20 07/10/17 13:20 Labs: Laboratory Results - last 24 hr 07/10/17 07/10/17 07/10/17 02:14 07:16 11:42 PT INR APTT Potassium POC Glucose (mg/dL) 247 H 219 H 156 H 07/10/17 07/10/17 07/10/17 13:20 13:20 16:48 PT 45.6 H INR 3.86 H* APTT 43.5 H Potassium 4.3 POC Glucose (mg/dL) 129 H Assessment & Plan (1) Coagulopathy Status: Acute (2) Proteinuria Status: Acute (3) Hematuria Status: Acute (4) Hyperkalemia Status: Acute (5) Elevated INR Status: Acute (6) Leukocytosis Status: Acute (7) UTI (urinary tract infection) Status: Acute (8) Urinary catheter infection Status: Acute - Assessment and Plan (Free Text) Plan: Labs ordered. Urine culture/ blood cultures pending. IV vanco & azactam. Bipap HS. GI/VTE prophylaxis. Consult: ID - Dr. Madden Urology - Dr. Ly GI - Dr. Bateman Reviewed: CXR = WNL - Date & Time Date: 07/10/17 Time: 10:40 <Thalia Frazier - Last Filed: 07/10/17 18:58> Results - Vital Signs Recent Vital Signs: Last Vital Signs Temp 97.4 F L 07/10/17 17:15 Pulse 82 07/10/17 17:20 Resp 18 07/10/17 17:15 BP 121/77 07/10/17 17:20 Pulse Ox 95 07/10/17 17:15 - Labs Result Diagrams: 07/09/17 22:20 07/10/17 13:20 Labs: Laboratory Results - last 24 hr 07/10/17 07/10/17 07/10/17 02:14 07:16 11:42 PT INR APTT Potassium POC Glucose (mg/dL) 247 H 219 H 156 H 07/10/17 07/10/17 07/10/17 13:20 13:20 16:48 PT 45.6 H INR 3.86 H* APTT 43.5 H Potassium 4.3 POC Glucose (mg/dL) 129 H Assessment & Plan - Assessment and Plan (Free Text) Plan: 56 yr male resident of [facility] w/ history paraplegia, COPD, CHF, chronic indwelling mccauley catheter, multiple UTIs, asthma , spinal tumor, DM, morbid obesity, & L eye blindness. Pt was c/o hematuria and indwelling catheter pain. He states that he had very little relief of pain with senior living interventions and decided to call 911 himself. He was brought into [facility] where his catheter was changed by hospital staff. Pt denies any fever, chills, nausea, vomiting, abdominal pain, shortness of breath, weakness, numbness, tingling, diarrhea, constipation or urinary changes.pt is seen and examined at bed side , looking comfortable , no change of status , will f/u , agreed all above . will f/u
[2017-07-10] MEDS: Insulin Detemir 100 units/ml Vial (Levemir) SC SCH (21:53)
[2017-07-11] MEDS: Aztreonam 1 Gm in NS 100mL 100 ML IVPB SCH ×3 (06:13→21:39)
[2017-07-11 06:41] LABS: BASO # 0.02 K/mm3 (0.0-2.0); BASO % 0.2 % (0.0-3.0); EOS # 0.4 (0.0-0.7); EOS % 3.7 % (1.5-5.0); GRAN # 7.25 (1.4-6.5); LYMPH # 2.3 (1.2-3.4); LYMPH % 21.2 % (22.0-35.0); MEAN CELL VOLUME 85.6 fl (80.0-105.0); MEAN CORPUSCULAR HEMOGLOBIN 27.6 pg (25.0-35.0); MEAN CORPUSCULAR HGB CONC 32.2 g/dl (31.0-37.0); MEAN PLATELET VOLUME 10.9 fl (7.0-11.0); MONO % 8.9 % (1.0-6.0); RBC 5.08 10^6/uL (3.5-6.1); RED CELL DISTRIBUTION WIDTH 14.8 % (11.5-14.5)
[2017-07-11 07:06] LABS: ALB/GLOB RATIO 0.9 (1.1-1.8); ALBUMIN 2.9 g/dL (3.0-4.8); ALT/SGPT 33 U/L (7-56); AST/SGOT 16 U/L (17-59); BLOOD UREA NITROGEN 23 mg/dL (7-21); CALCIUM 9.1 mg/dL (8.4-10.5); GFR AFRICAN-AMERICAN > 60; GFR NON-AFRICAN AMERICAN > 60
[2017-07-11 07:30] LABS: INR 3.03 (0.93-1.08); PROTHROMBIN TIME 35.7 SECONDS (9.4-12.5)
[2017-07-11 07:41] VITALS: RESP 20
[2017-07-11] MEDS: Insulin Lispro (humaLOG) LOW Coverage SC SCH ×4 (07:50→23:06)
--- NOTE | 2017-07-11 09:43 | CON ---
DATE: REASON FOR CONSULTATION: GI bleeding, mucus in stool. HISTORY OF PRESENT ILLNESS: This is a 56-year-old patient with past medical history of hypertension, diabetes mellitus, morbid obesity, had chronic Ceron catheter placement, history of atrial fibrillation, status post laminectomy in 2014, was recently discharged from the hospital following the treatment for multidrug resistant ESBL UTI, and Enterococcus infection. The patient also was found to have a small amount of blood-tinged mucus on cleaning noticed today. GI consult was requested to evaluate. The patient has a history of bleeding per rectum during the last admission also. The CAT scan showed possible sigmoid thickening. The patient subsequently improved, to have an elective colonoscopy as an outpatient. The patient has been on Coumadin for atrial fibrillation, other past medical history. The patient denies any abdominal pain. No vomiting of blood. No significant large amount of blood. The patient noticed to have only a small amount of blood in the tissue. The patient has history of paraplegia and status post laminectomy. OTHER PAST MEDICAL HISTORY: Significant as above, prison resident, morbid obesity. FAMILY HISTORY: Noncontributory except father has history of prostate cancer. SOCIAL HISTORY: Ex-smoker. Alcohol socially. ALLERGIES: ALLERGIC TO PENICILLIN. REVIEW OF SYSTEMS: Positive as above. Other systems reviewed and negative. PHYSICAL EXAMINATION VITAL SIGNS: Temperature is 97.4, pulse 75, blood pressure is 130/66, respirations 18, O2 saturation is 95%. HEENT: Atraumatic. Anicteric. NECK: Supple. HEART: S1 and S2 heard. LUNGS: Bilateral air entry present. ABDOMEN: Soft. No obvious tenderness. EXTREMITIES: Mild edema bilaterally present. The patient has a chronic indwelling Ceron catheter. NEUROLOGIC: Alert and oriented. Moves all extremities. Morbidly obese. The patient has paraplegia. LABORATORY DATA: WBC count is 22.7, hemoglobin 17.6, hematocrit 52.6, and platelets 303,000. BUN is 26 and creatinine 1.1. IMPRESSION: This 56-year-old morbidly obese patient, prison resident with indwelling Ceron catheter, recurrent urinary tract infection, recently has been treated for extended-spectrum beta-lactamase urinary tract infection, and Enterococcus infection, admitted with and pain along the Ceron catheter. That is the reason for the admission. The patient also noticed to have small amount of blood with mucus per rectal area. The previous CT scan reviewed showed some thickening of the sigmoid colon, some perisigmoid haziness. CT scan was not repeated this admission. Clinically, the patient has leukocytosis, possibility of Clostridium difficile also to be considered. Would recommend; 1. Repeat stool for Clostridium difficile. 2. The patient is on antibiotics, Azactam. We will continue that as per the ID. 3. Other comorbidities include diabetes mellitus. The patient had stool for Clostridium difficile. Continue the antibiotics as per ID, Azactam. We will wait for the repeat stools for Clostridium difficile, then consider repeating the CAT scan. Thank you very much for allowing us to participate in the care of the patient. Bandar Bateman MD
[2017-07-11] MEDS ORDERED: Barium Sulfate Susp 2.1% w/v, 2.0% w/w 450 mL Bottle PO ONE (11:10)
--- NOTE | 2017-07-11 12:17 | CP.PCM.PN ---
<Melissa Cuellar - Last Filed: 07/11/17 12:16> Subjective - Date & Time of Evaluation Date of Evaluation: 07/11/17 Time of Evaluation: 10:45 - Subjective Subjective: Seen and examined at the bedside earlier today, chart review. Patient has had no further episodes of diarrhea or mucoid bloody stool. Patient denies nausea, vomiting, or abdominal pain. No acute overnight events reported. Denies any fever or chills. Objective - Vital Signs/Intake and Output Vital Signs (last 24 hours): Temp Pulse Resp BP Pulse Ox 97.7 F 78 20 133/70 97 07/11/17 07:30 07/11/17 10:24 07/11/17 07:30 07/11/17 10:24 07/11/17 07:30 Intake and Output: 07/11/17 07/11/17 06:59 18:59 Intake Total 690 Output Total 1500 Balance -810 - Medications Medications: Current Medications Acetaminophen (Tylenol 325mg Tab) 650 mg PO Q4H PRN PRN Reason: Fever >100.5 F Aspirin (Ecotrin) 81 mg PO DAILY [facility] Last Admin: 07/11/17 10:24 Dose: 81 mg Famotidine (Pepcid) 20 mg PO HS [facility] Last Admin: 07/10/17 21:52 Dose: 20 mg Hydromorphone HCl (Dilaudid) 0.5 mg IVP Q6H PRN PRN Reason: Pain, moderate (4-7) Last Admin: 07/10/17 15:54 Dose: 0.5 mg Aztreonam (Azactam 1 Gm) 100 mls @ 100 mls/hr IVPB Q8 [facility] PRN Reason: Protocol Stop: 07/17/17 06:31 Last Admin: 07/11/17 06:13 Dose: 100 mls/hr Insulin Detemir (Levemir) 10 unit SC HS [facility] Last Admin: 07/10/17 21:53 Dose: 10 unit Insulin Human Lispro (Humalog Low) 0 units SC ACHS [facility] PRN Reason: Protocol Last Admin: 07/11/17 07:50 Dose: Not Given Levalbuterol HCl (Xopenex) 1.25 mg IH [id number] PRN PRN Reason: Shortness of Breath Lisinopril (Zestril) 20 mg PO BID [facility] Last Admin: 07/11/17 10:24 Dose: 20 mg Metoprolol Tartrate (Lopressor) 25 mg PO BRKDIN [facility] Last Admin: 07/11/17 08:22 Dose: 25 mg Montelukast Sodium (Singulair) 10 mg PO HS [facility] Last Admin: 07/10/17 21:52 Dose: 10 mg - Labs Labs: 07/11/17 06:15 07/11/17 06:15 PT 35.7 SECONDS (9.4-12.5) H 07/11/17 06:15 INR 3.03 (0.93-1.08) H 07/11/17 06:15 APTT 43.5 Seconds (25.1-36.5) H 07/10/17 13:20 - Constitutional Appears: No Acute Distress - Eye Exam Eye Exam: Normal appearance. absent: Scleral icterus - ENT Exam ENT Exam: Mucous Membranes Moist - Respiratory Exam Respiratory Exam: Decreased Breath Sounds, NORMAL BREATHING PATTERN. absent: Respiratory Distress - Cardiovascular Exam Cardiovascular Exam: +S1, +S2 - GI/Abdominal Exam GI & Abdominal Exam: Soft, Normal Bowel Sounds. absent: Guarding, Tenderness, Rebound Additional comments: obese - Rectal Exam Rectal Exam: Hemorrhoids. absent: Black Stool, Bloody Stool - Extremities Exam Extremities Exam: absent: Calf Tenderness - Neurological Exam Neurological Exam: Alert, Awake, Oriented x3 Assessment and Plan - Assessment and Plan (Free Text) Assessment: Assessment: UTI GI Bleed: bldy mucoid stool Morbid Obesity DM H/O thickening of colon previous ct scan. PLAN: Stool for C. difficile Request CT scan of abdomen and pelvis with only oral contrast On IV antibiotics Diet as tolerated monitor H/H and for overt GIB Seen and discussed with Dr. Bateman <Bandar Bateman V - Last Filed: 07/11/17 20:05> Objective - Vital Signs/Intake and Output Vital Signs (last 24 hours): Temp Pulse Resp BP Pulse Ox 97.6 F 69 20 156/78 H 94 L 07/11/17 16:00 07/11/17 16:59 07/11/17 16:00 07/11/17 16:59 07/11/17 16:00 Intake and Output: 07/11/17 07/12/17 18:59 06:59 Intake Total 600 Balance 600 - Medications Medications: Current Medications Acetaminophen (Tylenol 325mg Tab) 650 mg PO Q4H PRN PRN Reason: Fever >100.5 F Aspirin (Ecotrin) 81 mg PO DAILY [facility] Last Admin: 07/11/17 10:24 Dose: 81 mg Famotidine (Pepcid) 20 mg PO [facility] Last Admin: 07/10/17 21:52 Dose: 20 mg Hydromorphone HCl (Dilaudid) 0.5 mg IVP Q6H PRN PRN Reason: Pain, moderate (4-7) Last Admin: 07/11/17 16:59 Dose: 0.5 mg Aztreonam (Azactam 1 Gm) 100 mls @ 100 mls/hr IVPB Q8 [facility] PRN Reason: Protocol Stop: 07/17/17 06:31 Last Admin: 07/11/17 13:50 Dose: 100 mls/hr Insulin Detemir (Levemir) 10 unit SC [facility] Last Admin: 07/10/17 21:53 Dose: 10 unit Insulin Human Lispro (Humalog Low) 0 units SC [facility] PRN Reason: Protocol Last Admin: 07/11/17 16:17 Dose: Not Given Levalbuterol HCl (Xopenex) 1.25 mg IH [id number] PRN PRN Reason: Shortness of Breath Lisinopril (Zestril) 20 mg PO BID [facility] Last Admin: 07/11/17 16:59 Dose: 20 mg Metoprolol Tartrate (Lopressor) 25 mg PO BRKDIN [facility] Last Admin: 07/11/17 16:59 Dose: 25 mg Montelukast Sodium (Singulair) 10 mg PO [facility] Last Admin: 07/10/17 21:52 Dose: 10 mg - Labs Labs: 07/11/17 06:15 07/11/17 06:15 PT 35.7 SECONDS (9.4-12.5) H 07/11/17 06:15 INR 3.03 (0.93-1.08) H 07/11/17 06:15 APTT 43.5 Seconds (25.1-36.5) H 07/10/17 13:20 Attending/Attestation - Attestation I have personally seen and examined this patient.: Yes I have fully participated in the care of the patient.: Yes I have reviewed all pertinent clinical information, including history, physical exam and plan: Yes Notes (Text): This is an addendum to GI progress report dictated by Melissa Cuellar APN.The patient was seen and examined earlier. Medical records, lab studies, imagings were reviewed. Last 24 hours events reviewed. Agreed with the above treatment plan as outlined in Melissa Cuellar APN's notes the with the addition of the following abdomen soft Follow up of the hemoglobin and hematocrit Stool for C. difficile consider flexible sigmoidoscopy to fair bleeding per rectum continues after review of CT Continue antibiotics as per ID 07/11/17 20:01 07/11/17 20:04
--- NOTE | 2017-07-11 14:57 | CT ---
PROCEDURE: CT Abdomen and Pelvis without intravenous contrast HISTORY: diarrhea/bldy mucoid stool, h/o sigmoid inlfammati COMPARISON: None. TECHNIQUE: Without contrast. Contrast Dose: Radiation dose: Total exam DLP = 1073 mGy-cm. This CT exam was performed using one or more of the following dose reduction techniques: Automated exposure control, adjustment of the mA and/or kV according to patient size, and/or use of iterative reconstruction technique. FINDINGS: LOWER THORAX: Unremarkable. LIVER: Unremarkable. No gross lesion or ductal dilatation. GALLBLADDER AND BILE DUCTS: Unremarkable. PANCREAS: Unremarkable. No gross lesion or ductal dilatation. SPLEEN: Unremarkable. ADRENALS: Unremarkable. No mass. KIDNEYS AND URETERS: Unremarkable. No hydronephrosis. No solid mass. VASCULATURE: Unremarkable. No aortic aneurysm. BOWEL: Unremarkable. No obstruction. No gross mural thickening. APPENDIX: Unremarkable. Normal appendix. PERITONEUM: Unremarkable. No free fluid. No free air. LYMPH NODES: Unremarkable. No enlarged lymph nodes. BLADDER: There is dense material in the bladder suspicious for hematuria. A Ceron catheter is seen in place REPRODUCTIVE: Unremarkable. BONES: No acute fracture. OTHER FINDINGS: None. IMPRESSION: No acute intra-abdominal findings. No evidence of colitis or diverticulitis
[2017-07-11 16:42] VITALS: TEMP 97.6
[2017-07-11] MEDS: HYDROmorphone 0.5 mg/0.5 ml ISec IVP PRN (16:59)
--- NOTE | 2017-07-11 17:09 | CP.PCM.PN ---
Subjective - Date & Time of Evaluation Date of Evaluation: 07/11/17 Time of Evaluation: 12:15 - Subjective Subjective: Comfortable in bed, no fevers. Objective - Vital Signs/Intake and Output Vital Signs (last 24 hours): Temp Pulse Resp BP Pulse Ox 97.7 F 78 20 133/70 97 07/11/17 07:30 07/11/17 08:22 07/11/17 07:30 07/11/17 08:22 07/11/17 07:30 Intake and Output: 07/11/17 07/11/17 06:59 18:59 Intake Total 690 Output Total 1500 Balance -810 - Medications Medications: Current Medications Acetaminophen (Tylenol 325mg Tab) 650 mg PO Q4H PRN PRN Reason: Fever >100.5 F Aspirin (Ecotrin) 81 mg PO DAILY [facility] Famotidine (Pepcid) 20 mg PO [facility] Last Admin: 07/10/17 21:52 Dose: 20 mg Hydromorphone HCl (Dilaudid) 0.5 mg IVP Q6H PRN PRN Reason: Pain, moderate (4-7) Last Admin: 07/10/17 15:54 Dose: 0.5 mg Aztreonam (Azactam 1 Gm) 100 mls @ 100 mls/hr IVPB Q8 [facility] PRN Reason: Protocol Stop: 07/17/17 06:31 Last Admin: 07/11/17 06:13 Dose: 100 mls/hr Insulin Detemir (Levemir) 10 unit SC [facility] Last Admin: 07/10/17 21:53 Dose: 10 unit Insulin Human Lispro (Humalog Low) 0 units SC [facility] PRN Reason: Protocol Last Admin: 07/11/17 07:50 Dose: Not Given Levalbuterol HCl (Xopenex) 1.25 mg IH [id number] PRN PRN Reason: Shortness of Breath Lisinopril (Zestril) 20 mg PO BID [facility] Last Admin: 07/10/17 17:20 Dose: 20 mg Metoprolol Tartrate (Lopressor) 25 mg PO BRKDIN [facility] Last Admin: 07/11/17 08:22 Dose: 25 mg Montelukast Sodium (Singulair) 10 mg PO [facility] Last Admin: 07/10/17 21:52 Dose: 10 mg - Labs Labs: 07/11/17 06:15 07/11/17 06:15 PT 35.7 SECONDS (9.4-12.5) H 07/11/17 06:15 INR 3.03 (0.93-1.08) H 07/11/17 06:15 APTT 43.5 Seconds (25.1-36.5) H 07/10/17 13:20 - Constitutional Appears: Chronically Ill - Head Exam Head Exam: NORMAL INSPECTION - ENT Exam ENT Exam: Mucous Membranes Moist - Neck Exam Neck Exam: absent: Meningismus - Respiratory Exam Respiratory Exam: Decreased Breath Sounds - Cardiovascular Exam Cardiovascular Exam: +S1, +S2 - GI/Abdominal Exam GI & Abdominal Exam: Soft. absent: Tenderness Assessment and Plan - Assessment and Plan (Free Text) Plan: Assessment consider sepsis due to complicated UTI associated with indwelling montague catheter , with urine growing gram negative bacilli history of severe sepsis with acute renal failure due to probable complicated UTI associated with indwelling montague catheter, grew ESBL-producing E. coli HTN DM morbid obesity with BMI 53 chronic montague catheter use typically changed every month chronic atrial fibrillation S/P laminectomy in 2014 Plan continue Azactam day 2 pending identification and sensitivities of the gram negative bacilli in the urine; Montague should be changed will continue to monitor clinically
[2017-07-11] MEDS: Insulin Detemir 100 units/ml Vial (Levemir) SC SCH (21:40)
[2017-07-12] MEDS: Aztreonam 1 Gm in NS 100mL 100 ML IVPB SCH ×2 (06:38→14:30)
[2017-07-12] MEDS: Insulin Lispro (humaLOG) LOW Coverage SC SCH ×3 (07:53→16:59)
[2017-07-12 08:16] VITALS: O2SAT 95
--- NOTE | 2017-07-12 09:19 | PN ---
DATE: 07/11/2017 SUBJECTIVE: Patient is a 56-year-old male. Patient was seen and examined on the bedside, looking comfortable, still having pain in his perineal area, but according to him, pain is getting better. No nausea, vomiting, or diarrhea. No hematuria or hematochezia. No headache, no dizziness. No fever. No chills. As per patient, he has blood in his bowel movement; we called GI consult, they are on the case. CAT scan of the abdomen and pelvis reviewed by me. PHYSICAL EXAMINATION: VITAL SIGNS: Temperature is 97.7, pulse 78, respiratory rate 20, blood pressure 133/90, pulse oximetry 97. HEENT: Head normocephalic, atraumatic. Eyes, PERRLA. Extraocular muscles intact. Conjunctivae clear. Nose patent. NECK: Supple. No carotid bruit. No JVD or thyromegaly. CHEST: Bilaterally symmetrical. HEART: S1 and S2 positive. LUNGS: Clear to auscultation. ABDOMEN: Soft. Bowel sounds positive. No organomegaly. EXTREMITIES: No edema. No cyanosis. NEUROLOGIC: The patient is awake and alert. Moving all 4 extremities. No focal deficits. MEDICATIONS: Ecotrin, Pepcid, Dilaudid, Azactam, Levemir insulin, Xopenex, Zestril, Lopressor, Singulair. LABORATORY DATA: White blood cells 11.0, hemoglobin 14.0, hematocrit 43.5, platelets 257. Sodium 138, potassium 4.1, BUN 23, creatinine 0.9, glucose 132. ASSESSMENT AND PLAN: The patient with hyperglycemia, has sepsis due to complicated urinary tract infection, associated with indwelling Ceron catheter with urine growing Gram-negative bacilli; history of severe sepsis with acute renal failure due to probably complicated urinary tract infection associated with indwelling catheters, grew extended spectrum [id number] Escherichia coli; hypertension, diabetes mellitus, morbid obesity, BMI is 53, chronic Ceron catheter use, typically changed every month by Dr. Ly. Patient had a history of penectomy, chronic atrial fibrillation, he is on Coumadin, continue Azactam. Ceron's will be changed, we will consult with Dr. Ly. History of gastrointestinal bleeding, seen by Dr. Fransico Dos Santos's nurse practitioner. Patient is a resident of [facility]. History of thickening of the colon on previous CAT scan, history of bloody mucoid stool as per patient; stable hemoglobin and hematocrit. GI and deep venous thrombosis prophylaxis. Repeat labs. We will follow. Thalia Frazier MD [place]
[2017-07-12 09:43] LABS: BLOOD UREA NITROGEN 15 mg/dL (7-21); GFR AFRICAN-AMERICAN > 60; GFR NON-AFRICAN AMERICAN > 60
[2017-07-12 09:57] LABS: HEMOGLOBIN 14.9 g/dL (14.0-18.0); MEAN CELL VOLUME 85.4 fl (80.0-105.0); MEAN CORPUSCULAR HEMOGLOBIN 27.5 pg (25.0-35.0); MEAN CORPUSCULAR HGB CONC 32.2 g/dl (31.0-37.0); RBC 5.42 10^6/uL (3.5-6.1); RED CELL DISTRIBUTION WIDTH 14.3 % (11.5-14.5); WHITE BLOOD COUNT 9.9 10^3/ul (4.5-11.0)
[2017-07-12 10:06] LABS: INR 1.94 (0.93-1.08); PROTHROMBIN TIME 22.6 SECONDS (9.4-12.5)
[2017-07-12] MEDS: HYDROmorphone 0.5 mg/0.5 ml ISec IVP PRN (10:58)
--- NOTE | 2017-07-12 11:53 | CP.PCM.PN ---
<Melissa Cuellar - Last Filed: 07/12/17 11:50> Subjective - Date & Time of Evaluation Date of Evaluation: 07/12/17 Time of Evaluation: 10:35 - Subjective Subjective: Seen and examined at the bedside earlier today, chart review. No acute overnight events reported. Patient reported to have BM with streaks of mucus, no blood was seen. The patient denies nausea, vomiting, or abdominal pain. Appetite still remains decrease. Patient sent for CT scan of abdomen and pelvis , no acute intra-abdominal findings noted [facility] for full report. Objective - Vital Signs/Intake and Output Vital Signs (last 24 hours): Temp Pulse Resp BP Pulse Ox 97.6 F 68 20 153/82 H 95 07/12/17 08:15 07/12/17 10:38 07/12/17 08:15 07/12/17 10:38 07/12/17 08:15 Intake and Output: 07/12/17 07/12/17 06:59 18:59 Intake Total 1120 Output Total 2900 Balance -1780 - Medications Medications: Current Medications Acetaminophen (Tylenol 325mg Tab) 650 mg PO Q4H PRN PRN Reason: Fever >100.5 F Aspirin (Ecotrin) 81 mg PO DAILY [facility] Last Admin: 07/12/17 10:38 Dose: 81 mg Famotidine (Pepcid) 20 mg PO HS [facility] Last Admin: 07/11/17 21:40 Dose: 20 mg Hydromorphone HCl (Dilaudid) 0.5 mg IVP Q6H PRN PRN Reason: Pain, moderate (4-7) Last Admin: 07/12/17 10:58 Dose: 0.5 mg Aztreonam (Azactam 1 Gm) 100 mls @ 100 mls/hr IVPB Q8 [facility] PRN Reason: Protocol Stop: 07/17/17 06:31 Last Admin: 07/12/17 06:38 Dose: 100 mls/hr Insulin Detemir (Levemir) 10 unit SC HS [facility] Last Admin: 07/11/17 21:40 Dose: 10 unit Insulin Human Lispro (Humalog Low) 0 units SC ACHS [facility] PRN Reason: Protocol Last Admin: 07/11/17 23:06 Dose: Not Given Levalbuterol HCl (Xopenex) 1.25 mg IH [id number] PRN PRN Reason: Shortness of Breath Lisinopril (Zestril) 20 mg PO BID [facility] Last Admin: 07/12/17 10:38 Dose: 20 mg Metoprolol Tartrate (Lopressor) 25 mg PO BRKDIN [facility] Last Admin: 07/12/17 08:28 Dose: 25 mg Montelukast Sodium (Singulair) 10 mg PO HS [facility] Last Admin: 07/11/17 21:40 Dose: 10 mg - Labs Labs: 07/12/17 09:20 07/12/17 09:20 PT 22.6 SECONDS (9.4-12.5) H 07/12/17 09:20 INR 1.94 (0.93-1.08) H 07/12/17 09:20 APTT 43.5 Seconds (25.1-36.5) H 07/10/17 13:20 - Constitutional Appears: No Acute Distress - Eye Exam Eye Exam: Normal appearance. absent: Scleral icterus - ENT Exam ENT Exam: Mucous Membranes Moist - Neck Exam Neck Exam: Normal Inspection - Respiratory Exam Respiratory Exam: NORMAL BREATHING PATTERN. absent: Respiratory Distress - Cardiovascular Exam Cardiovascular Exam: +S1, +S2 - GI/Abdominal Exam GI & Abdominal Exam: Soft, Normal Bowel Sounds. absent: Guarding, Tenderness, Rebound Additional comments: obese abdomen - Extremities Exam Extremities Exam: absent: Calf Tenderness - Neurological Exam Neurological Exam: Alert, Awake, Oriented x3 - Skin Skin Exam: Dry, Warm Assessment and Plan - Assessment and Plan (Free Text) Assessment: Assessment: UTI,(+) E coli GI Bleed: bldy mucoid stool Morbid Obesity DM H/O thickening of colon previous ct scan., repeat ct scan no acute intrabdominal findings PLAN: Stool for C. difficile, results pending On IV antibiotics Diet as tolerated monitor H/H and for overt GIB discussed w/ patient he would benefit from colonoscopy, consider after urosepsis has resolved and follow-up stool for C. difficile. Consider flexsig if continue diarrhea and bleeding. Will continue to monitor. Seen and discussed with Dr. Bateman <Bandar Bateman V - Last Filed: 07/12/17 23:59> Objective - Vital Signs/Intake and Output Vital Signs (last 24 hours): Temp Pulse Resp BP Pulse Ox 97.6 F 64 20 148/75 95 02/07/18 08:15 07/12/17 17:31 07/12/17 08:15 07/12/17 17:31 07/12/17 08:15 - Labs Labs: 07/12/17 09:20 07/12/17 09:20 PT 22.6 SECONDS (9.4-12.5) H 07/12/17 09:20 INR 1.94 (0.93-1.08) H 07/12/17 09:20 APTT 43.5 Seconds (25.1-36.5) H 07/10/17 13:20 Attending/Attestation - Attestation Notes (Text): This is an addendum to GI progress report dictated by Melissa Cuellar APN.The patient was seen and examined earlier. Medical records, lab studies, imagings were reviewed. Last 24 hours events reviewed. Agreed with the above treatment plan as outlined in Melissa Cuellar APN's notes the with the addition of the following On examination abdomen soft minimal tenderness suprapubic. After oriented area on deep palpation No melena no bright red BRPR Patient would benefit from elective colonoscopic evaluation Complete antibiotics as per ID 07/12/17 23:58 07/12/17 23:59
--- NOTE | 2017-07-12 12:27 | CP.PCM.PN ---
Subjective - Date & Time of Evaluation Date of Evaluation: 07/12/17 Time of Evaluation: 11:45 - Subjective Subjective: Comfortable in bed, no fevers. Objective - Vital Signs/Intake and Output Vital Signs (last 24 hours): Temp Pulse Resp BP Pulse Ox 97.6 F 76 20 171/99 H 95 07/12/17 08:15 07/12/17 08:28 07/12/17 08:15 07/12/17 08:28 07/12/17 08:15 Intake and Output: 07/12/17 07/12/17 06:59 18:59 Intake Total 1120 Output Total 2900 Balance -1780 - Medications Medications: Current Medications Acetaminophen (Tylenol 325mg Tab) 650 mg PO Q4H PRN PRN Reason: Fever >100.5 F Aspirin (Ecotrin) 81 mg PO DAILY [facility] Last Admin: 07/11/17 10:24 Dose: 81 mg Famotidine (Pepcid) 20 mg PO [facility] Last Admin: 07/11/17 21:40 Dose: 20 mg Hydromorphone HCl (Dilaudid) 0.5 mg IVP Q6H PRN PRN Reason: Pain, moderate (4-7) Last Admin: 07/11/17 16:59 Dose: 0.5 mg Aztreonam (Azactam 1 Gm) 100 mls @ 100 mls/hr IVPB Q8 [facility] PRN Reason: Protocol Stop: 07/17/17 06:31 Last Admin: 07/12/17 06:38 Dose: 100 mls/hr Insulin Detemir (Levemir) 10 unit SC [facility] Last Admin: 07/11/17 21:40 Dose: 10 unit Insulin Human Lispro (Humalog Low) 0 units SC [facility] PRN Reason: Protocol Last Admin: 07/11/17 23:06 Dose: Not Given Levalbuterol HCl (Xopenex) 1.25 mg IH [id number] PRN PRN Reason: Shortness of Breath Lisinopril (Zestril) 20 mg PO BID [facility] Last Admin: 07/11/17 16:59 Dose: 20 mg Metoprolol Tartrate (Lopressor) 25 mg PO BRKDIN [facility] Last Admin: 07/12/17 08:28 Dose: 25 mg Montelukast Sodium (Singulair) 10 mg PO [facility] Last Admin: 07/11/17 21:40 Dose: 10 mg - Labs Labs: 07/11/17 06:15 07/11/17 06:15 PT 35.7 SECONDS (9.4-12.5) H 07/11/17 06:15 INR 3.03 (0.93-1.08) H 07/11/17 06:15 APTT 43.5 Seconds (25.1-36.5) H 07/10/17 13:20 - Constitutional Appears: Non-toxic, Chronically Ill - Head Exam Head Exam: NORMAL INSPECTION - Neck Exam Neck Exam: absent: Meningismus - Respiratory Exam Respiratory Exam: Decreased Breath Sounds - Cardiovascular Exam Cardiovascular Exam: +S1, +S2 - GI/Abdominal Exam GI & Abdominal Exam: Soft. absent: Tenderness Assessment and Plan - Assessment and Plan (Free Text) Plan: Assessment consider sepsis due to complicated UTI associated with indwelling montague catheter , with urine growing E. coli history of severe sepsis with acute renal failure due to probable complicated UTI associated with indwelling montague catheter, grew ESBL-producing E. coli HTN DM morbid obesity with BMI 53 chronic montague catheter use typically changed every month chronic atrial fibrillation S/P laminectomy in 2014 Plan continue Azactam day 3 pending susceptibility pattern; Montague should be changed will continue to monitor clinically
--- NOTE | 2017-07-12 13:34 | CP.PCM.PN ---
<Nataliia Gold - Last Filed: 07/12/17 13:31> Subjective - Date & Time of Evaluation Date of Evaluation: 07/12/17 Time of Evaluation: 10:40 - Subjective Subjective: Chief complaint: Catheter pain 56 yr male resident of [facility] w/ history paraplegia, COPD, CHF, chronic indwelling montague catheter, multiple UTIs, asthma , spinal tumor, DM, morbid obesity, & L eye blindness. Pt was c/o hematuria and indwelling catheter pain. He states that he had very little relief of pain with [facility] interventions and decided to call 911 himself. He was brought into [facility] ED where his catheter was changed by hospital staff. Today, pt feels 6/10 pain in his catheter area only mildly relieved by dilaudid. Pt denies any headache, fever, chills, nausea, vomiting, abdominal pain, shortness of breath, chest pain, weakness, numbness, tingling, diarrhea, constipation or urinary changes. Objective - Vital Signs/Intake and Output Vital Signs (last 24 hours): Temp Pulse Resp BP Pulse Ox 97.6 F 68 20 153/82 H 95 07/12/17 08:15 07/12/17 10:38 07/12/17 08:15 07/12/17 10:38 07/12/17 08:15 Intake and Output: 07/12/17 07/12/17 06:59 18:59 Intake Total 1120 Output Total 2900 Balance -1780 - Medications Medications: Current Medications Acetaminophen (Tylenol 325mg Tab) 650 mg PO Q4H PRN PRN Reason: Fever >100.5 F Aspirin (Ecotrin) 81 mg PO DAILY [facility] Last Admin: 07/12/17 10:38 Dose: 81 mg Famotidine (Pepcid) 20 mg PO HS [facility] Last Admin: 07/11/17 21:40 Dose: 20 mg Hydromorphone HCl (Dilaudid) 0.5 mg IVP Q6H PRN PRN Reason: Pain, moderate (4-7) Last Admin: 07/12/17 10:58 Dose: 0.5 mg Aztreonam (Azactam 1 Gm) 100 mls @ 100 mls/hr IVPB Q8 GREG PRN Reason: Protocol Stop: 07/17/17 06:31 Last Admin: 07/12/17 06:38 Dose: 100 mls/hr Insulin Detemir (Levemir) 10 unit SC [facility] Last Admin: 07/11/17 21:40 Dose: 10 unit Insulin Human Lispro (Humalog Low) 0 units SC [facility] PRN Reason: Protocol Last Admin: 07/12/17 11:52 Dose: 1 units Levalbuterol HCl (Xopenex) 1.25 mg IH [id number] PRN PRN Reason: Shortness of Breath Lisinopril (Zestril) 20 mg PO BID [facility] Last Admin: 07/12/17 10:38 Dose: 20 mg Metoprolol Tartrate (Lopressor) 25 mg PO BRKDIN [facility] Last Admin: 07/12/17 08:28 Dose: 25 mg Montelukast Sodium (Singulair) 10 mg PO [facility] Last Admin: 07/11/17 21:40 Dose: 10 mg - Labs Labs: 07/12/17 09:20 07/12/17 09:20 PT 22.6 SECONDS (9.4-12.5) H 07/12/17 09:20 INR 1.94 (0.93-1.08) H 07/12/17 09:20 APTT 43.5 Seconds (25.1-36.5) H 07/10/17 13:20 - Constitutional Appears: No Acute Distress - Head Exam Head Exam: ATRAUMATIC, NORMAL INSPECTION, NORMOCEPHALIC - Eye Exam Eye Exam: EOMI, Normal appearance, PERRL Pupil Exam: NORMAL ACCOMODATION, PERRL - ENT Exam ENT Exam: Mucous Membranes Moist, Normal Exam - Neck Exam Neck Exam: Full ROM, Normal Inspection. absent: Lymphadenopathy - Respiratory Exam Respiratory Exam: Clear to Ausculation Bilateral, NORMAL BREATHING PATTERN - Cardiovascular Exam Cardiovascular Exam: REGULAR RHYTHM, +S1, +S2. absent: Murmur - GI/Abdominal Exam GI & Abdominal Exam: Soft, Normal Bowel Sounds. absent: Tenderness - Exam Additional comments: montague catheter draining, cloudy yellow urine - Extremities Exam Extremities Exam: Normal Capillary Refill Additional comments: discolored BLE - Neurological Exam Neurological Exam: Alert, Awake Additional comments: non-ambulatory - Psychiatric Exam Psychiatric exam: Normal Affect, Normal Mood - Skin Skin Exam: Dry, Normal Color, Warm Assessment and Plan (1) Coagulopathy Status: Acute (2) Proteinuria Status: Acute (3) Hematuria Status: Acute (4) Hyperkalemia Status: Acute (5) Elevated INR Status: Acute (6) Leukocytosis Status: Acute (7) UTI (urinary tract infection) Status: Acute (8) Urinary catheter infection Status: Acute - Assessment and Plan (Free Text) Plan: Hold Coumadin. PICC line insertion pending. IV azactam. Urine culture (+) e.coli. Blood cultures NEGATIVE. Labs ordered. Bipap HS. GI/VTE prophylaxis. Possible colonscopy/flexsig after urosepsis resolves per GI. Pain management for catheter site pain per Urology. Pain management plan: tylenol, dilaudid Consult: ID - Dr. Madden Urology - Dr. Ly GI - Dr. Bateman Reviewed: CT abd/pelvis = WNL CXR = WNL <Thalia Frazier - Last Filed: 07/12/17 15:39> Objective - Vital Signs/Intake and Output Vital Signs (last 24 hours): Temp Pulse Resp BP Pulse Ox 97.6 F 68 20 153/82 H 95 07/12/17 08:15 07/12/17 10:38 07/12/17 08:15 07/12/17 10:38 07/12/17 08:15 Intake and Output: 07/12/17 07/12/17 06:59 18:59 Intake Total 1120 Output Total 2900 Balance -1780 - Medications Medications: Current Medications Acetaminophen (Tylenol 325mg Tab) 650 mg PO Q4H PRN PRN Reason: Fever >100.5 F Aspirin (Ecotrin) 81 mg PO DAILY [facility] Last Admin: 07/12/17 10:38 Dose: 81 mg Famotidine (Pepcid) 20 mg PO HS [facility] Last Admin: 07/11/17 21:40 Dose: 20 mg Hydromorphone HCl (Dilaudid) 0.5 mg IVP Q6H PRN PRN Reason: Pain, moderate (4-7) Last Admin: 07/12/17 10:58 Dose: 0.5 mg Aztreonam (Azactam 1 Gm) 100 mls @ 100 mls/hr IVPB Q8 GREG PRN Reason: Protocol Stop: 07/17/17 06:31 Last Admin: 07/12/17 14:30 Dose: Not Given Insulin Detemir (Levemir) 10 unit SC [facility] Last Admin: 07/11/17 21:40 Dose: 10 unit Insulin Human Lispro (Humalog Low) 0 units SC [facility] PRN Reason: Protocol Last Admin: 07/12/17 11:52 Dose: 1 units Levalbuterol HCl (Xopenex) 1.25 mg IH [id number] PRN PRN Reason: Shortness of Breath Lisinopril (Zestril) 20 mg PO BID [facility] Last Admin: 07/12/17 10:38 Dose: 20 mg Metoprolol Tartrate (Lopressor) 25 mg PO BRKDIN [facility] Last Admin: 07/12/17 08:28 Dose: 25 mg Montelukast Sodium (Singulair) 10 mg PO [facility] Last Admin: 07/11/17 21:40 Dose: 10 mg - Labs Labs: 07/12/17 09:20 07/12/17 09:20 PT 22.6 SECONDS (9.4-12.5) H 07/12/17 09:20 INR 1.94 (0.93-1.08) H 07/12/17 09:20 APTT 43.5 Seconds (25.1-36.5) H 07/10/17 13:20 Assessment and Plan - Assessment and Plan (Free Text) Plan: 56 yr male resident of [facility] w/ history paraplegia, COPD, CHF, chronic indwelling montague catheter, multiple UTIs, asthma , spinal tumor, DM, morbid obesity, & L eye blindness. Pt was c/o hematuria and indwelling catheter pain. He states that he had very little relief of pain with [facility] interventions and decided to call 911 himself. He was brought into [facility] ED where his catheter was changed by hospital staff. Today, pt feels 6/10 pain in his catheter area only mildly relieved by dilaudid. Pt denies any headache, fever, chills, nausea, vomiting, abdominal pain, shortness of breath, chest pain, weakness, numbness, tingling, diarrhea, constipation or urinary changes.pt is seen and examined at bed side , looking comfortable , agreed all above . chart ,meds and labs noted . will f/u
[2017-07-12 17:33] VITALS: BP 148/75; PULSE 64
== END 2017-07-12 20:35 | DRG 699 ==
LOC: ED 21:22 → ERH 23:43 → 5RNO 07-10 01:42
PROVIDERS: ADMIT Internal Medicine; ATTEND Internal Medicine
PROC: 05HY33Z Insertion of Infusion Device into Upper Vein, Percutaneous Approach (ICD-10-PCS; principal; 2017-07-12)
DX: T83.511A Infection and inflammatory reaction due to indwelling urethral catheter, initial encounter (principal); N39.0 Urinary tract infection, site not specified; G82.20 Paraplegia, unspecified; I50.9 Heart failure, unspecified; I11.0 Hypertensive heart disease with heart failure; E11.65 Type 2 diabetes mellitus with hyperglycemia; Z68.43 Body mass index [BMI] 50.0-59.9, adult; E66.01 Morbid (severe) obesity due to excess calories; J44.9 Chronic obstructive pulmonary disease, unspecified; E87.5 Hyperkalemia; R80.9 Proteinuria, unspecified; I48.2 Chronic atrial fibrillation; Z79.01 Long term (current) use of anticoagulants; B96.20 Unspecified Escherichia coli [E. coli] as the cause of diseases classified elsewhere; N31.9 Neuromuscular dysfunction of bladder, unspecified; H54.62 Unqualified visual loss, left eye, normal vision right eye; Y84.6 Urinary catheterization as the cause of abnormal reaction of the patient, or of later complication, without mention of misadventure at the time of the procedure; Z87.440 Personal history of urinary (tract) infections; Z87.891 Personal history of nicotine dependence; Z88.0 Allergy status to penicillin

== ENCOUNTER 2017-10-20 08:34 | Inpatient (IN) | payer MEDICARE, MEDICAID ==
[2017-10-20 08:34] VITALS: PULSE 90
[2017-10-20] MEDS ORDERED: Sodium Chloride 0.9% 1,000 ML IV STA ×2 (09:00→18:36)
[2017-10-20] MEDS ORDERED: Morphine 4 mg/ml ISec IVP STA ×2 (09:00→17:26)
--- NOTE | 2017-10-20 09:03 | ED PDOC ---
Arrival/HPI - General Chief Complaint: Male Genitourinary Time Seen by Provider: 10/20/17 08:58 Historian: Patient, Snf - History of Present Illness Narrative History of Present Illness (Text): 10/20/17 09:00 56 year old male, whose PMH includes CHF, COPD, diabetes, and paralysis, who presents to the emergency department complaining of inability to pass urine through catheter since yesterday. He is a resident at [facility]. Patient states he has has the catheter since July 2017, and is not sure why it was not changed monthly. Patient complains of progressive lower abdominal pain and cramping with subjective fever, nausea, and sweats x few days, worse over the last 24hours. pt states the catheter malfunctioned and was not producing any urine since 1 day ago. Patient denies shortness of breath, chest pain, vomiting, or other complaints. He is bed bound and not mobile. pt denied fall/trauma/sick contact, no traveling freight agent is here for further eval. PMD: Dr. Campbell urology: Dr. Ly Time/Duration: 24 hours Symptom Onset: Sudden Symptom Course: Unchanged Activities at Onset: Rest Context: Home (intermediate) Past Medical History - Provider Review Nursing Documentation Reviewed: Yes - Travel History Have you recently traveled outside [place] w/in the past 3 mons?: No - Past History Past History: No Previous - Infectious Disease Hx of Infectious Diseases: None - Cardiac Hx Cardiac Disorders: No Hx Congestive Heart Failure: Yes - Pulmonary Hx Respiratory Disorders: Yes (USED TO SMOKE CIGARETTES 1 PK LASTS 3 WEEKS.) Hx Asthma: Yes Hx Chronic Obstructive Pulmonary Disease (COPD): Yes - Neurological Hx Paralysis: Yes - HEENT Hx HEENT Disorder: Yes Hx Blind: Yes (left eye) - Renal Hx Renal Disorder: Yes (UROSEPSIS MULTIPLE TIMES. MCCAULEY CATH. NEUROPATHIC BLADDER) - Endocrine/Metabolic Hx Endocrine Disorders: Yes Hx Diabetes Mellitus Type 2: Yes - Hematological/Oncological Hx Blood Transfusions: No - Integumentary Hx Dermatological Disorder: Yes Other/Comment: ABDOMINAL FOLDS MASD,BILATERAL LE SKIN DRYNESS,LARGE THIN FLAKES, LIGHT BROWN SKIN DISCOLORATION,RIGHT BIG TOE WITH FLUSHED SKIN,SWELLING.STATES NAIL WAS CLIPPED AND NEVER HEALED. - Musculoskeletal/Rheumatological Hx Musculoskeletal Disorders: Yes (CARPAL TUNNEL; ARTHRITIS BACK & LEGS) - Gastrointestinal Hx Gastrointestinal Disorders: Yes Other/Comment: Morbid obesity, incONTINENT - Genitourinary/Gynecological Hx Genitourinary Disorders: Yes Hx Incontinence: Yes Hx Urinary Tract Infection: Yes Other/Comment: chronic Urinary catheter - Psychiatric Hx Psychophysiologic Disorder: No Hx Substance Use: No - Surgical History Hx Mastectomy: No - Anesthesia Hx Anesthesia Reactions: No Hx Malignant Hyperthermia: No - Suicidal Assessment Feels Threatened In Home Enviroment: No Family/Social History - Physician Review Nursing Documentation Reviewed: Yes Family/Social History: Unknown Family HX Smoking Status: Former Smoker Hx Alcohol Use: Yes (OCCASIONALLY) Hx Substance Use: No Hx Substance Use Treatment: No Allergies/Home Meds Allergies/Adverse Reactions: Allergies Penicillins Allergy (Severe, Verified 10/20/17 08:50) ANAPHYLAXIS Home Medications: Home Meds Medication Instructions Recorded Confirmed Aspirin [Ecotrin] 81 mg PO DAILY 07/10/17 10/20/17 Insulin Detemir [Levemir] 10 units SC HS 07/10/17 10/20/17 Warfarin [Coumadin] 6 mg PO DAILY 07/10/17 10/20/17 Cholecalciferol (Vitamin D3) 50,000 unit PO SUN 09/12/17 10/20/17 [Vitamin D3] Insulin Lispro-LOW [humALOG LOW] 2 - 8 units SC ACHS 09/12/17 10/20/17 Melatonin 3 mg PO HS 09/12/17 10/20/17 Acetaminophen [Non-Aspirin Pain 2 tab PO PRN PRN 10/20/17 10/20/17 Relief] Metoprolol Tartrate [Lopressor] 25 mg PO BID 10/20/17 10/20/17 Review of Systems - Physician Review All systems were reviewed & negative as marked: Yes - Review of Systems Constitutional: Fevers Eyes: Normal ENT: Normal Respiratory: absent: SOB Cardiovascular: absent: Chest Pain Gastrointestinal: Abdominal Pain (lower abdominal pain ) Genitourinary Male: Urinary Output Changes Musculoskeletal: Normal Skin: Normal Neurological: Dizziness. absent: Headache Endocrine: Normal Hemo/Lymphatic: Normal Psychiatric: Normal Physical Exam - Physical Exam Narrative Physical Exam (Text): 10/20/17 General: alert/awake, GCS = 15, oriented x 3, resting in bed, uncomfortable, cooperative, interactive Head: NC/AT EYE: PERRLA, EOMI, sclera anicteric, no nystagmus, no photophobia Facial: WNL Oral: uvula/tongue are midline, no exudate/lesions, no drooling/stridor, no dysphonia; dry oral mucosa, poor dentitions NECK: intact ROM, no midline tenderness, no nuchal rigidity, no meningeal signs Chest: CTA b/l, no w/r/r; no tachypenia, no accessory muscle use noted Cardiac: +S1, +S2, no m/r/r; + tachy Abdominal: +BS, soft/nd, well nourished/morbid obese patient; no masses/rebound/ guarding/rigidity; no capellan's sign, no mcburney's point tenderness, + diffuse lower mid abd tenderness, no gross distentions noted : + mccauley cath noted from penile site, + malodorous, no expressible discharge noted ext: decr ROM to b/l lower ext, strength 4-/5 grossly intact b/l lower limbs, neurovasc intact b/l; strength 5/5 grossly intact upper ext b/l SKIN: cap refill ~ 1 sec, no ulcerations, no petechiae, no rashes NEURO: CNII-XII WNL, no facial asymmetries, no slurr speech, oriented x 3 Psych: normal insight, normal affect Vital Signs Reviewed: Yes Vital Signs Temp Pulse Resp BP Pulse Ox 10/20/17 10:34 100 H 18 153/96 H 99 10/20/17 08:42 97.7 F 103 H 22 156/126 H 94 L Temperature: Afebrile Blood Pressure: Hypertensive Pulse: Tachycardic Respiratory Rate: Normal Appearance: Positive for: Well-Appearing, Non-Toxic, Uncomfortable Pain Distress: Mild Mental Status: Positive for: Alert and Oriented X 3 - Systems Exam Head: Present: Atraumatic, Normocephalic Medical Decision Making ED Course and Treatment: 10/20/17 Impression: urinary retention, r/o infection 56 year old male, with lower abdominal pain and urinary output changes since yesterday. Plan: -- Labs -- Morphine and Sodium Chloride -- Urinalysis -- Reassess and disposition Progress Notes: pt currently awaiting Dr Ly's arrival pt is uncomfortable 10/20/[address] Ly is currently at bedside; placing mccauley catheter 10/20/17 09:10 Dr. Ly was able to placed catheter for the patient, and noted cloudy/ malodorous urine, concern for infection; Dr Ly will continue to monitor patient 10/20/17 09:[address] Campbell who is aware of case and would like to consult Dr. Vigil and Dr. Ly. 10/20/17 09:58 CODE SEPSIS WAS CALLED AT 09:58. pt is currently comfortable pt is not in acute distress pt is made aware of his medical results agrees with admission Re-evaluation Time: 09:15 Reassessment Condition: Improved - Critical Care Critical Care Minutes: 45 minutes Critical Care Time: Excluding Proc Time Narrative Critical Care (Text): 10/20/17 18:34 critical care time: 45min, excluding procedure time, excluding time teaching residents/students/mid-level providers; including initial eval/diagnosis, diagnostic interpretation, re-eval, consultations, final disposition - Lab Interpretations Lab Results: 10/20/17 08:30 10/20/17 08:30 Lab Results 10/20/17 09:24: POC Glucose (mg/dL) 151 H 10/20/17 08:30: Sodium 138, Chloride 100, Potassium 4.5, Carbon Dioxide 25, Anion Gap 18, BUN 22 H, Creatinine 1.1, Est GFR ( Amer) > 60, Est GFR ( Non-Af Amer) > 60, Random Glucose 304 H* D, Calcium 9.4, Magnesium 2.0, Total Bilirubin 0.7, AST 24, ALT 27, Alkaline Phosphatase 110, Total Protein 8.0, Albumin 4.1, Globulin 3.9, Albumin/Globulin Ratio 1.1, Lipase 38 10/20/17 08:30: pO2 96 H, VBG pH 7.39, VBG pCO2 44.0, VBG HCO3 26.6, VBG Total CO2 28.0, VBG O2 Sat (Calc) 98.2 H, VBG Base Excess 1.2, VBG Potassium 4.5, Sodium 132.0, Chloride 96.0 L, Glucose 312 H, Lactate 2.2 H, FiO2 21.0, Venous Blood Potassium 4.5 10/20/17 08:30: Urine Color Yellow, Urine Appearance Turbid, Urine pH 8.5, Ur Specific [place] 1.015, Urine Protein >=300 H, Urine Glucose (UA) 250 H, Urine Ketones Negative, Urine Blood Small H, Urine Nitrate Positive H, Urine Bilirubin Negative, Urine Urobilinogen 0.2, Ur Leukocyte Esterase Small H, Urine RBC 5 - 10, Urine WBC Tntc, Urine Bacteria Many 10/20/17 08:30: PT 25.7 H, INR 2.20 H, APTT 40.2 H 10/20/17 08:30: WBC 26.8 H* D, RBC 6.69 H, Hgb 18.1 H* D, Hct 53.7 H, MCV 80.3 D, MCH 27.1, MCHC 33.7, RDW 14.2, Plt Count 267, MPV 10.9, Gran % 90.8 H, Lymph % (Auto) 3.5 L, Gilliam % (Auto) 5.6, Eos % (Auto) 0.0 L, Baso % (Auto) 0.1, Gran # 24.35 H, Lymph # (Auto) 0.9 L, Gilliam # (Auto) 1.5 H, Eos # (Auto) 0.0, Baso # ( Auto) 0.02, Neutrophils % (Manual) 93 H, Lymphocytes % (Manual) 5 L, Monocytes % (Manual) 2, Platelet Evaluation Normal I have reviewed the lab results: Yes Interpretation: Abnormal lab values (elevated WBCs; elevated GLUC, elevated lactic acid, ABNL U/A) - EKG Interpretation EKG Interpretation (Text): 10/20/17 18:33 NSR at 95 bpm, normal axis, no ectopy, diffuse low voltage inf leads, poor baseline, non specific st-t changes, ABNL EKG; unchanged compare with old ekg Interpreted by ED Physician: Yes Type: 12 lead EKG Comparison: Similar to previous EKG - Medication Orders Current Medication Orders: Acetaminophen (Tylenol 325mg Tab) 2 mg PO PRN PRN PRN Reason: Pain, Mild (1-3) Aspirin (Ecotrin) 81 mg PO DAILY GREG Ergocalciferol (Drisdol 50,000 Intl Units Cap) 1 cap PO SUN GREG Famotidine (Pepcid) 20 mg PO HS [facility] Sodium Chloride (Sodium Chloride 0.9%) 1,000 mls @ 100 mls/hr IV .Q10H STA Stop: 10/20/17 18:59 Last Admin: 10/20/17 09:44 Dose: 100 mls/hr eMAR Start Stop Document 10/20/17 09:44 [facility] (Rec: 10/20/17 09:44 [facility]-[id number]) Intravenous Solution Start Date 10/20/17 Start Time 09:44 Aztreonam (Azactam 1 Gm) 100 mls @ 100 mls/hr IVPB Q8 GREG PRN Reason: Protocol Last Admin: 10/20/17 18:26 Dose: 100 mls/hr eMAR Start Stop Document 10/20/17 18:26 MDU (Rec: 10/20/17 18:27 MDU [id number]) Intravenous Solution Start Date 10/20/17 Start Time 18:27 End Date 10/20/17 End time 19:27 Total Infusion Time 60 Insulin Detemir (Levemir) 10 unit SC HS [facility] Insulin Human Regular (Humulin R Low) 0 units SC ACHS GREG PRN Reason: Protocol Levalbuterol HCl (Xopenex) 1.25 mg IH [id number] PRN PRN Reason: Shortness of Breath Lisinopril (Zestril) 20 mg PO BID [facility] Last Admin: 10/20/17 17:34 Dose: 20 mg MAR Pulse and Blood Pressure Document 10/20/17 17:34 MDU (Rec: 10/20/17 17:35 MDU [id number]) Pulse Pulse Rate (60-90) 115 Blood Pressure Blood Pressure (100/60-150/90) 171/110 Metoprolol Tartrate (Lopressor) 25 mg PO BID [facility] Last Admin: 10/20/17 17:35 Dose: 25 mg MAR Pulse and Blood Pressure Document 10/20/17 17:35 MDU (Rec: 10/20/17 17:35 MDU [id number]) Pulse Pulse Rate (60-90) 111 Blood Pressure Blood Pressure (100/60-150/90) 171/110 Montelukast Sodium (Singulair) 10 mg PO HS [facility] Non-Formulary Medication (Melatonin [Melatonin]) 3 mg PO HS [facility] Discontinued Medications Gentamicin Sulfate 570 mg/ (Sodium Chloride) 264.25 mls @ 132.125 mls/hr IVPB ONCE ONE Stop: 10/20/17 11:29 Last Admin: 10/20/17 09:43 Dose: 132.125 mls/hr eMAR Start Stop Document 10/20/17 09:43 [facility] (Rec: 10/20/17 09:44 [id number] Intravenous Solution Start Date 10/20/17 Start Time 09:44 End Date 10/20/17 End time 11:44 Total Infusion Time 120 Linezolid (Zyvox 600mg/300ml D5w) 600 mg in 300 mls @ 200 mls/hr IVPB ONCE ONE PRN Reason: Protocol Stop: 10/20/17 12:16 Last Admin: 10/20/17 14:44 Dose: 200 mls/hr eMAR Start Stop Document 10/20/17 14:44 MDU (Rec: 10/20/17 14:44 MDU [id number]) Intravenous Solution Start Date 10/20/17 Start Time 14:44 End Date 10/20/17 End time 16:14 Total Infusion Time 90 Morphine Sulfate (Morphine) 4 mg IVP STAT STA Stop: 10/20/17 09:01 Last Admin: 10/20/17 09:43 Dose: 4 mg MAR Pain Assessment Document 10/20/17 09:43 [facility] (Rec: 10/20/17 09:43 [id number] Pain Reassessment Is this a pain reassessment? No Sleep Is patient sleeping during reassessment? Yes Pain Scale Used Pain Scale Used Numeric Location Upper or Lower Lower Pain Location Body Site Abdomen Description Description Pressure Intensity of Pain at present 7 Pain Behavior Guarding IVP Administration Document 10/20/17 09:43 [facility] (Rec: 10/20/17 09:43 [facility]-[id number]) Charges for Administration # of IVP Administrations 1 Morphine Sulfate (Morphine) 2 mg IVP STAT STA Stop: 10/20/17 17:27 Last Admin: 10/20/17 17:34 Dose: 2 mg MAR Pain Assessment Document 10/20/17 17:34 MDU (Rec: 10/20/17 17:34 MDU [id number]) Pain Reassessment Is this a pain reassessment? No Sleep Is patient sleeping during reassessment? No Presence of Pain Presence of Pain Yes Pain Scale Used Pain Scale Used Numeric Location Pain Location Body Site Groin Description Description Constant Intensity of Pain at present 10 Acceptable Level of Pain 0 Pain Behavior Restlessness Facial Grimacing Aggravating Factors None Alleviating Factors/Management Medication Techniques IVP Administration Document 10/20/17 17:34 MDU (Rec: 10/20/17 17:34 MDU [id number]) Charges for Administration # of IVP Administrations 1 Ondansetron HCl (Zofran Inj) 4 mg IVP STAT STA Stop: 10/20/17 09:54 Last Admin: 10/20/17 10:04 Dose: - Scribe Statement The provider has reviewed the documentation as recorded by the Scribe Nadya Foster Provider Scribe Attestation: All medical record entries made by the Scribe were at my direction and personally dictated by me. I have reviewed the chart and agree that the record accurately reflects my personal performance of the history, physical exam, medical decision making, and the department course for this patient. I have also personally directed, reviewed, and agree with the discharge instructions and disposition. Disposition/Present on Arrival - Present on Arrival Any Indicators Present on Arrival: No History of DVT/PE: No History of Uncontrolled Diabetes: Yes Urinary Catheter: Yes History of Decub. Ulcer: No History Surgical Site Infection Following: None - Disposition Have Diagnosis and Disposition been Completed?: Yes Diagnosis: UTI (urinary tract infection), Sepsis, Malfunction of Mccauley catheter, Elevated blood pressure reading Disposition: HOSPITALIZED Disposition Time: 10:00 Patient Plan: Admission, Telemetry Condition: STABLE
[2017-10-20] MEDS ORDERED: Gentamicin 80 mg/2mL Inj. IVPB ONE (09:15)
[2017-10-20] MEDS ORDERED: GENTAMICIN IVPB ONE (09:30)
[2017-10-20] MEDS ORDERED: SODIUM CHLORIDE 0.9% IVPB ONE (09:30)
[2017-10-20 09:46] LABS: BASO # 0.02 K/mm3 (0.0-2.0); BASO % 0.1 % (0.0-3.0); GRAN # 24.35 (1.4-6.5); GRAN % 90.8 % (50.0-68.0); LYMPH # 0.9 (1.2-3.4); LYMPH % 3.5 % (22.0-35.0); MEAN CELL VOLUME 80.3 fl (80.0-105.0); MEAN CORPUSCULAR HEMOGLOBIN 27.1 pg (25.0-35.0); MEAN CORPUSCULAR HGB CONC 33.7 g/dl (31.0-37.0); MEAN PLATELET VOLUME 10.9 fl (7.0-11.0); MONO # 1.5 (0.1-0.6); MONO % 5.6 % (1.0-6.0); PLATELET COUNT 267 10^3/uL (120.0-450.0); RBC 6.69 10^6/uL (3.5-6.1); RED CELL DISTRIBUTION WIDTH 14.2 % (11.5-14.5)
[2017-10-20 09:47] LABS: VENOUS BLOOD GAS BASE EXCESS 1.2 mmol/L (0.0-2.0); VENOUS BLOOD GAS PO2 96 mm/Hg (30-55); VENOUS BLOOD PH 7.39 (7.32-7.43)
[2017-10-20 09:48] LABS: PH,URINE 8.5 (4.7-8.0); URINE BILIRUBIN NEGATIVE (NEGATIVE); URINE BLOOD SMALL (NEGATIVE); URINE GLUCOSE (UA) 250 mg/dL (NEGATIVE); URINE LEUKOCYTE ESTERASE SMALL Leu/uL (NEGATIVE); URINE PROTEIN >=300 mg/dL (<30 mg/dL); URINE UROBILINOGEN 0.2 E.U./dL (<1 E.U./dL)
[2017-10-20 09:49] LABS: URINE APPEARANCE TURBID (CLEAR); URINE COLOR YELLOW (YELLOW)
[2017-10-20 09:51] LABS: HEMOGLOBIN 18.1 g/dL (14.0-18.0); WHITE BLOOD COUNT 26.8 10^3/ul (4.5-11.0)
[2017-10-20 09:58] LABS: URINE BACTERIA MANY (NEG); URINE WBC TNTC /hpf (0-6)
[2017-10-20 10:05] LABS: ALB/GLOB RATIO 1.1 (1.1-1.8); ALBUMIN 4.1 g/dL (3.0-4.8); ALT/SGPT 27 U/L (7-56); AST/SGOT 24 U/L (17-59); BLOOD UREA NITROGEN 22 mg/dL (7-21); CALCIUM 9.4 mg/dL (8.4-10.5); GFR AFRICAN-AMERICAN > 60; GFR NON-AFRICAN AMERICAN > 60; LIPASE 38 U/L (23-300)
[2017-10-20 10:06] LABS: INR 2.2 (0.93-1.08); PARTIAL THROMBOPLASTIN TIME 40.2 Seconds (25.1-36.5); PROTHROMBIN TIME 25.7 SECONDS (9.4-12.5)
[2017-10-20 10:30] LABS: LYMPHOCYTE 5 % (22.0-35.0); MONOCYTE 2 % (1.0-6.0); NEUTROPHIL 93 % (50.0-70.0)
[2017-10-20 10:31] LABS: PLATELET ESTIMATE NORMAL (NORMAL)
[2017-10-20] MEDS ORDERED: Linezolid 600 mg in D5W 300 ml 600 MG/300 ML BAG IVPB ONE (10:47)
[2017-10-20 12:22] LABS: VENOUS BLOOD GAS BASE EXCESS 1.7 mmol/L (0.0-2.0); VENOUS BLOOD GAS PO2 103 mm/Hg (30-55); VENOUS BLOOD PH 7.35 (7.32-7.43)
[2017-10-20 14:29] VITALS: BMI 58.7
[2017-10-20] MEDS ORDERED: Pneumococcal 23-Valent Vaccine IM ONE (14:31)
--- NOTE | 2017-10-20 16:52 | CARD ---
APPROVED REPORT EKG Measurement Heart [id number] <Conclusion> Normal sinus rhythm Possible Left atrial enlargement Borderline ECG
[2017-10-20] MEDS ORDERED: Morphine 2 mg/ml ISec IVP STA (17:16)
--- NOTE | 2017-10-20 17:36 | PCM.URO ---
Urology Progress Note - Objective Lab Studies: Reviewed (gu dx: montague catheter failure gu plans: today i inserted a new montague catheter thanks for consult full note dictated) Lab Results Last 24 Hours: Laboratory Results - last 24 hr 10/20/17 12:10 pO2 103 H VBG pH 7.35 VBG pCO2 51.0 VBG HCO3 28.2 H VBG Total CO2 29.8 H VBG O2 Sat (Calc) 98.7 H VBG Base Excess 1.7 VBG Potassium 4.5 Sodium 131.0 L Chloride 98.0 Glucose 297 H Lactate 1.9 FiO2 21.0 Venous Blood Potassium 4.5 Intake & Output: Intake & Output 10/19/17 10/20/17 10/20/17 18:59 06:59 18:59 Weight 398 lb Other: Voiding Method Indwelling Catheter Vital Signs: Vital Signs - 24 hr 10/20/17 10/20/17 10/20/17 10:34 12:15 13:59 Temperature 98.6 F 97.7 F Pulse Rate 100 H 102 H 103 H Pulse Rate [ 103 H Apical] Respiratory 18 18 22 Rate Blood Pressure 153/96 H 160/97 H 156/126 H O2 Sat by Pulse 99 96 Oximetry
--- NOTE | 2017-10-20 17:47 | CP.PCM.CON ---
History of Present Illness - History of Present Illness History of Present Illness: Infectious Disease Consultation: October 20, 2017 56 yo male with morbid obesity sent to [facility] from [facility] for change of montague catheter and pain around catheter site. The patient states abdominal pain and subjective fevers and chills. Urinalysis suggestive of UTI. The patient also has leukocytosis of 26.8. Urine cultures pending. On prior hospitalizations, the patient had Enterococcus and E. coli PMHx: Congestive Heart Failure, Chronic Obstructive Pulmonary Disease, Morbid Obesity , Benign Neoplasm of Spine, Paraplegia, history of multiple UTIs, left eye blindness. PSHx: Laminectomy 03/2015, Catheter placement 02/2015 Allergies: PCN - facial rash and lip swelling. Social Hx: no tobacco, EtOH, or illicit drug use. [place] resident Active Medications Sodium Chloride (Sodium Chloride 0.9%) 1,000 mls @ 100 mls/hr IV .Q10H STA Stop: 10/20/17 18:59 Last Admin: 10/20/17 09:44 Dose: 100 mls/hr Aztreonam (Azactam 1 Gm) 100 mls @ 100 mls/hr IVPB Q8 GREG PRN Reason: Protocol Lisinopril (Zestril) 20 mg PO BID GREG Metoprolol Tartrate (Lopressor) 25 mg PO BID [facility] Family Hx: none given ROS: No nausea, vomiting, diarrhea, headaches, dizziness, chest pain, melena, hematuria, hematemesis, hematochezia, depression, anxiety, vision loss, hearing loss, loss of consciousness, chest pain. Complains of subjective fevers, chills, and abdominal pain. Past Patient History - Infectious Disease Hx of Infectious Diseases: None - Past Medical History & Family History Past Medical History?: Yes - Past Social History Smoking Status: Former Smoker - CARDIAC Hx Congestive Heart Failure: Yes Hx Hypertension: Yes - PULMONARY Hx Respiratory Disorders: Yes (USED TO SMOKE CIGARETTES 1 PK LASTS 3 WEEKS.) Hx Asthma: Yes Hx Chronic Obstructive Pulmonary Disease (COPD): Yes - NEUROLOGICAL Hx Neurological Disorder: Yes (SYNCOPE) HX Cerebrovascular Accident: (pt denies cva) Other/Comment: Paraplegia/ spinal tumor-WITH SX 2014 unable to ambulated since , weakness ble and weak hand grasps, cold b/l ankles and feet - HEENT Hx HEENT Problems: Yes Hx Blind: Yes (left eye) - RENAL Hx Chronic Kidney Disease: Yes (UROSEPSIS MULTIPLE TIMES. MONTAGUE CATH. NEUROPATHIC BLADDER) - ENDOCRINE/METABOLIC Hx Endocrine Disorders: Yes Hx Diabetes Mellitus Type 2: Yes - HEMATOLOGICAL/ONCOLOGICAL Hx Blood Disorders: Yes (sepsis) Hx Anemia: Yes - INTEGUMENTARY Hx Dermatological Problems: Yes Other/Comment: ble dry skin and light brown skin discolorations, long thick toenails both feet,, right great toe dry reddis brown wound nail clipped never healed, facial flushing, red rash to chest shoulders denies pain/itch, - MUSCULOSKELETAL/RHEUMATOLOGICAL Hx Falls: Yes (past) - GASTROINTESTINAL Hx Gastrointestinal Disorders: Yes (mobidly obese) Other/Comment: incontinent, gi bleed - GENITOURINARY/GYNECOLOGICAL Hx Genitourinary Disorders: Yes Hx Incontinence: Yes Hx Urinary Tract Infection: Yes (multiple) Other/Comment: indwelling catheter, neuropathic bladder - PSYCHIATRIC Hx Substance Use: No - SURGICAL HISTORY Hx Surgeries: Yes (b/l carpal shayna sx) Hx Mastectomy: No Hx Open Heart Surgery: Yes (r knee sx "bone on bone") Other/Comment: 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, "nicked spinal cord" pt stated has not been able to ambulate since - ANESTHESIA Hx Anesthesia Reactions: No Hx Malignant Hyperthermia: No Meds Allergies/Adverse Reactions: Allergies Allergy/AdvReac Type Severity Reaction Status Date / Time Penicillins Allergy Severe ANAPHYLAXIS Verified 10/20/17 08:50 - Medications Medications: Current Medications Sodium Chloride (Sodium Chloride 0.9%) 1,000 mls @ 100 mls/hr IV .Q10H STA Stop: 10/20/17 18:59 Last Admin: 10/20/17 09:44 Dose: 100 mls/hr Aztreonam (Azactam 1 Gm) 100 mls @ 100 mls/hr IVPB Q8 GREG PRN Reason: Protocol Lisinopril (Zestril) 20 mg PO BID GREG Metoprolol Tartrate (Lopressor) 25 mg PO BID GREG Morphine Sulfate (Morphine) 2 mg IVP STAT STA Stop: 10/20/17 17:27 Physical Exam - Constitutional Appears: Non-toxic, No Acute Distress, Chronically Ill Additional comments: Morbidly Obese - Head Exam Head Exam: ATRAUMATIC, NORMOCEPHALIC - Eye Exam Eye Exam: EOMI, PERRL Pupil Exam: NORMAL ACCOMODATION, PERRL - ENT Exam ENT Exam: Mucous Membranes Moist, Normal External Ear Exam, TM's Normal Bilaterally - Neck Exam Neck exam: Positive for: Full Rom, Normal Inspection - Respiratory Exam Respiratory Exam: Clear to Auscultation Bilateral, NORMAL BREATHING PATTERN. absent: Rales, Rhonchi, Wheezes - Cardiovascular Exam Cardiovascular Exam: REGULAR RHYTHM, RRR, +S1, +S2 - GI/Abdominal Exam GI & Abdominal Exam: Normal Bowel Sounds, Soft. absent: Distended, Tenderness - Extremities Exam Extremities exam: Positive for: full ROM, normal inspection - Neurological Exam Neurological exam: Alert, CN II-XII Intact, Oriented x3 Additional comments: bedridden - Psychiatric Exam Psychiatric exam: Normal Affect, Normal Mood - Skin Skin Exam: Intact, Normal Color Results - Vital Signs Recent Vital Signs: Last Vital Signs Temp 97.7 F 10/20/17 13:59 Pulse 103 H 10/20/17 13:59 Resp 22 10/20/17 13:59 BP 156/126 H 10/20/17 13:59 Pulse Ox 96 10/20/17 12:15 - Labs Result Diagrams: 10/20/17 08:30 10/20/17 08:30 Labs: Laboratory Results - last 24 hr 10/20/17 12:10 pO2 103 H VBG pH 7.35 VBG pCO2 51.0 VBG HCO3 28.2 H VBG Total CO2 29.8 H VBG O2 Sat (Calc) 98.7 H VBG Base Excess 1.7 VBG Potassium 4.5 Sodium 131.0 L Chloride 98.0 Glucose 297 H Lactate 1.9 FiO2 21.0 Venous Blood Potassium 4.5 Assessment & Plan - Assessment and Plan (Free Text) Assessment: 56 yo male with abdominal pain and complaints of subjective fevers and chills. The patient was found to have leukocytosis. Given Gentamicin and Zyvox in the ER. History of E. coli and Enterococcus in the past hospitalizations. Supportive care. Continue with Aztreonam for now. Awaiting urine cultures. For suprapubic catheter exchange. Thank you for allowing me to participate in the care of the patient, we will follow with you.
[2017-10-20] MEDS: Aztreonam 1 Gm in NS 100mL 100 ML IVPB SCH ×2 (18:26→23:23)
[2017-10-20] MEDS: Insulin Reg-LOW-Coverage SC SCH (23:15)
[2017-10-20] MEDS: Insulin Detemir 100 units/ml Vial (Levemir) SC SCH (23:23)
[2017-10-21 02:30] LABS: PH,URINE 6.5 (4.7-8.0); URINE BILIRUBIN NEGATIVE (NEGATIVE); URINE BLOOD LARGE (NEGATIVE); URINE GLUCOSE (UA) 250 mg/dL (NEGATIVE); URINE LEUKOCYTE ESTERASE MODERATE Leu/uL (NEGATIVE); URINE PROTEIN 100 mg/dL (<30 mg/dL); URINE UROBILINOGEN 0.2 E.U./dL (<1 E.U./dL)
[2017-10-21 02:42] LABS: URINE COLOR YELLOW (YELLOW)
[2017-10-21 02:43] LABS: URINE APPEARANCE TURBID (CLEAR)
[2017-10-21 03:06] LABS: URINE BACTERIA MANY (NEG); URINE EPITHELIAL CELLS 0 - 2 /hpf (0-5)
[2017-10-21 03:10] LABS: URINE RBC TNTC /hpf (0-2); URINE WBC TNTC /hpf (0-6)
--- NOTE | 2017-10-21 05:32 | HP ---
DATE OF EXAM: 10/20/2017 CHIEF COMPLAINT: Urinary problem. HISTORY OF PRESENT ILLNESS: Mr. Marcus Valdovinos is a 56-year-old male, resident of [facility], with past medical history of congestive heart failure, COPD, diabetes mellitus, came to the emergency department complaining of inability to pass the urine though catheter was there since yesterday, he is a resident at [facility]. The patient said he has the catheter since 07/2017, and is not sure why it was not changed monthly, actually it should be changed monthly but mainly appointment problem and it was not done. The patient is complaining of progressive lower abdominal pain and complaining of subjective fever, nausea and sweats for few days, worse in the last 24 hours. The patient states the catheter malfunctioned and were not producing any urine since one day ago. The patient denies shortness of breath. No nausea, vomiting or diarrhea. No hematuria or hematochezia. No headache. No dizziness. No sick contact. No travel. PAST MEDICAL HISTORY: As above. History of smoking, asthma, COPD, history of paralysis, left eye blind, urosepsis multiple times, penectomy, diabetes mellitus, morbid obesity, and urinary incontinence. FAMILY HISTORY: Father and mother noncontributory. HABITS: Alcohol use, yes. History of substance abuse, no. Smoking, former smoker, not smoking now. ALLERGIES: THE PATIENT IS ALLERGIC TO PENICILLIN. HOME MEDICATIONS: Aspirin, Levemir, Coumadin, vitamin D, insulin, melatonin, Lopressor. REVIEW OF SYSTEMS: The patient seen and examined at the bedside in the room, looking comfortable. No nausea, vomiting or diarrhea. No hematuria or hematochezia. No swelling of the legs. No chest pain. No palpitation. No headache. No dizziness. PHYSICAL EXAMINATION: VITAL SIGNS: Temperature 97.7, pulse 103, respiratory 22, blood pressure and repeat is 153/96. HEENT: Head is normocephalic, atraumatic. Eyes, PERRLA. Extraocular muscles intact. Conjunctivae clear. Nose patent. Mucous membranes moist. NECK: Supple. No carotid bruits. No JVD or thyromegaly. CHEST: Bilaterally symmetrical. HEART: S1 and S2 positive. LUNGS: Clear to auscultation. ABDOMEN: Soft. Bowel sounds present. No organomegaly. EXTREMITIES: No edema. No cyanosis. NEUROLOGICAL: The patient is awake and alert, moving all four extremities. No focal deficits. LABORATORY DATA: White blood cell 26.8, hemoglobin 18.1, hematocrit 53.7, platelets 267. Sodium 138, potassium 4.5, BUN 22, creatinine 1.1, glucose 304. ASSESSMENT PLAN: Mr. Marcus Valdovinos is a 56-year-old male with leukocytosis, anemia, hyperglycemia, uncontrolled diabetes mellitus, has urosepsis, malfunctioning Ceron catheter, elevated blood sugar reading, history of comorbid obesity, congestive heart failure, chronic obstructive pulmonary disease, paralysis, penectomy, has chronic Ceron catheter, now seen by Dr. Nic Vigil for sepsis. Dr. Ankit Ly changed the Ceron catheter, now urine is flowing. Waiting for Dr. Dunbar's input for chronic obstructive pulmonary and asthma. The patient is feeling subjective fevers and chills. Given gentamicin and Zyvox in the ER. History of Escherichia coli and Enterococcal in the past hospitalization, supportive care, continue aztreonam for now. Awaiting for urine culture from suprapubic catheter exchange. History of chronic obstructive pulmonary disease and asthma, obstructive sleep apnea. Repeat labs. We will follow up. Thalia Frazier MD
[2017-10-21] MEDS: Aztreonam 1 Gm in NS 100mL 100 ML IVPB SCH ×3 (05:45→22:06)
[2017-10-21 07:02] LABS: HEMOGLOBIN 14.9 g/dL (14.0-18.0); MEAN CELL VOLUME 81.9 fl (80.0-105.0); MEAN CORPUSCULAR HEMOGLOBIN 26.5 pg (25.0-35.0); MEAN CORPUSCULAR HGB CONC 32.4 g/dl (31.0-37.0); MEAN PLATELET VOLUME 10.8 fl (7.0-11.0); RBC 5.62 10^6/uL (3.5-6.1); RED CELL DISTRIBUTION WIDTH 14.7 % (11.5-14.5)
[2017-10-21 07:17] LABS: TOTAL IRON BINDING CAPACITY 244 ug/dL (261-462)
[2017-10-21 07:23] LABS: % IRON SATURATION 17 % (20-55); BLOOD UREA NITROGEN 29 mg/dL (7-21); CALCIUM 8.5 mg/dL (8.4-10.5); GFR AFRICAN-AMERICAN > 60; GFR NON-AFRICAN AMERICAN > 60; IRON 43 ug/dL (45-180)
[2017-10-21] MEDS: Insulin Reg-LOW-Coverage SC SCH ×4 (08:10→22:07)
[2017-10-21 10:08] LABS: HDL CHOLESTEROL 26 mg/dL (29-60)
[2017-10-21 10:19] LABS: LDL CHOLESTEROL 132 mg/dL (0-129)
--- NOTE | 2017-10-21 17:32 | CP.PCM.PN ---
Subjective - Date & Time of Evaluation Date of Evaluation: 10/21/17 Time of Evaluation: 15:00 - Subjective Subjective: Infectious Disease Follow Up: October 21, 2017 56 yo male with morbid obesity sent to [facility] from [facility] for change of montague catheter and pain around catheter site. The patient states abdominal pain and subjective fevers and chills. Urinalysis suggestive of UTI. The patient also has leukocytosis of 26.8 on admission and now at 19.0. Urine cultures pending. Blood cultures showing coagulase negative staph... likely contamination. On prior hospitalizations, the patient had Enterococcus and E. coli. Objective - Vital Signs/Intake and Output Vital Signs (last 24 hours): Temp Pulse Resp BP Pulse Ox 98.4 F 77 20 129/74 95 10/21/17 16:59 10/21/17 17:22 10/21/17 16:59 10/21/17 17:22 10/21/17 06:00 Intake and Output: 10/21/17 10/21/17 06:59 18:59 Intake Total 1200 Balance 1200 - Medications Medications: Current Medications Acetaminophen (Tylenol 325mg Tab) 2 mg PO PRN PRN PRN Reason: Pain, Mild (1-3) Acetaminophen (Tylenol 325mg Tab) 650 mg PO Q4H PRN PRN Reason: Pain, moderate (4-7) Last Admin: 10/21/17 16:14 Dose: 650 mg Aspirin (Ecotrin) 81 mg PO DAILY [facility] Last Admin: 10/21/17 09:31 Dose: 81 mg Ergocalciferol (Drisdol 50,000 Intl Units Cap) 1 cap PO [facility] Famotidine (Pepcid) 20 mg PO [facility] Last Admin: 10/20/17 23:22 Dose: 20 mg Aztreonam (Azactam 1 Gm) 100 mls @ 100 mls/hr IVPB Q8 GREG PRN Reason: Protocol Last Admin: 10/21/17 13:23 Dose: 100 mls/hr Insulin Detemir (Levemir) 10 unit SC [facility] Last Admin: 10/20/17 23:23 Dose: 10 unit Insulin Human Regular (Humulin R Low) 0 units SC ACHS [facility] PRN Reason: Protocol Last Admin: 10/21/17 17:23 Dose: 2 units Levalbuterol HCl (Xopenex) 1.25 mg IH [id number] PRN PRN Reason: Shortness of Breath Lisinopril (Zestril) 20 mg PO BID [facility] Last Admin: 10/21/17 17:23 Dose: 20 mg Metoprolol Tartrate (Lopressor) 25 mg PO BID [facility] Last Admin: 10/21/17 17:22 Dose: 25 mg Montelukast Sodium (Singulair) 10 mg PO HS [facility] Last Admin: 10/20/17 23:23 Dose: 10 mg Non-Formulary Medication (Melatonin [Melatonin]) 3 mg PO HS [facility] Warfarin Sodium (Coumadin) 6 mg PO 1800 [facility] PRN Reason: Protocol Last Admin: 10/21/17 17:22 Dose: 6 mg - Labs Labs: 10/21/17 06:00 10/21/17 06:00 PT 25.7 SECONDS (9.4-12.5) H 10/20/17 08:30 INR 2.20 (0.93-1.08) H 10/20/17 08:30 APTT 40.2 Seconds (25.1-36.5) H 10/20/17 08:30 - Constitutional Appears: Non-toxic, No Acute Distress - Head Exam Head Exam: ATRAUMATIC, NORMOCEPHALIC - Eye Exam Eye Exam: EOMI, PERRL Pupil Exam: NORMAL ACCOMODATION, PERRL - ENT Exam ENT Exam: Mucous Membranes Moist, Normal External Ear Exam, TM's Normal Bilaterally - Neck Exam Neck Exam: Full ROM, Normal Inspection - Respiratory Exam Respiratory Exam: Clear to Ausculation Bilateral, NORMAL BREATHING PATTERN. absent: Rales, Rhonchi, Wheezes - Cardiovascular Exam Cardiovascular Exam: REGULAR RHYTHM, RRR, +S1, +S2 - GI/Abdominal Exam GI & Abdominal Exam: Soft, Normal Bowel Sounds. absent: Distended, Tenderness - Extremities Exam Extremities Exam: Full ROM, Normal Inspection - Neurological Exam Neurological Exam: Alert, Awake, CN II-XII Intact, Oriented x3 Additional comments: bedridden - Psychiatric Exam Psychiatric exam: Normal Affect, Normal Mood - Skin Skin Exam: Intact, Normal Color Assessment and Plan - Assessment and Plan (Free Text) Assessment: 56 yo male with abdominal pain and complaints of subjective fevers and chills. The patient was found to have leukocytosis. Given Gentamicin and Zyvox in the ER. History of E. coli and Enterococcus in the past hospitalizations. Supportive care. Continue with Aztreonam for now. Awaiting urine cultures. Blood cultures with coagulase negative staph. Suprapubic catheter exchange done yesterday. Thank you for allowing me to participate in the care of the patient, we will follow with you.
[2017-10-21] MEDS: Insulin Detemir 100 units/ml Vial (Levemir) SC SCH (22:06)
[2017-10-21] MEDS: MELATONIN 3 MG PO SCH (22:20)
--- NOTE | 2017-10-21 23:24 | PN ---
DATE: 10/21/2017 SUBJECTIVE: Patient is a 56-year-old male. Patient was seen and examined at the bedside, still complaining about lower abdominal pain. No nausea, vomiting, or diarrhea. No headache or dizziness. No chest pain, no palpitation. Urine culture is pending. Blood culture is showing coagulase-negative Staph, likely contamination as per Dr. Vigil. PHYSICAL EXAMINATION: VITAL SIGNS: Temperature 98.4, pulse 77, respiratory rate 20, blood pressure 120/74, pulse oximetry 95. HEENT: Head is normocephalic, atraumatic. Eyes, PERRLA. Nose patent. Mucous membranes moist. NECK: Supple. No carotid bruits. No JVD or thyromegaly. CHEST: Bilaterally symmetrical. HEART: S1 and S2 positive. LUNGS: Clear to auscultation. ABDOMEN: Soft. Bowel sounds present. No organomegaly. EXTREMITIES: No edema. No cyanosis. NEUROLOGICAL: Patient is awake and alert, moving all four extremities. No focal deficits. MEDICATIONS: Tylenol, acetaminophen, Ecotrin, vitamin D, Pepcid, Azactam, Levemir insulin, Xopenex, Zestril, Lopressor, Singulair, Coumadin. LABORATORY DATA: White blood cell is 19, hemoglobin 14.9, hematocrit 46, platelets 270. Sodium 137, potassium 4.3, BUN noted , creatinine 1.1, glucose 209. ASSESSMENT AND PLAN: Mr. Marcus Valdovinos is a 56-year-old male with leukocytosis, hyperglycemia, came with abdominal pain, subjective fever and chills. The patient was found to have leukocytosis, given gentamicin, Zyvox in the emergency room. History of Escherichia coli and Enterococcus in the past hospitalization. Continue aztreonam. Waiting for urine culture. Blood culture is with coagulase-negative Staphylococcus. Suprapubic catheter exchange done yesterday. I appreciate Dr. Vigil's input for antibiotics. Patient has history of comorbid obesity, chronic obstructive pulmonary disease, asthma, history of paralysis, left eye blind, history of multiple times urosepsis, penectomy. We will continue present treatment. Gastrointestinal and deep vein thrombosis prophylaxis. Repeat labs. We will follow up. Thalia Frazier MD MTDD
[2017-10-21] MEDS: Levalbuterol 1.25 MG/3 ML Inhal Soln UD IH PRN (23:34)
[2017-10-22] MEDS: Albuterol-Ipratrop 3 mg / 0.5 (3 ml) UD IH SCH ×4 (01:32→20:00)
--- NOTE | 2017-10-22 02:31 | CON ---
DATE: 10/21/2017 REFFERRING PHYSICIAN: Dr. Thalia Frazier. REASON FOR CONSULT: Quadriparesis, sleep apnea syndrome, cough with blood-tinged sputum. HISTORY OF PRESENT ILLNESS: This is a 56-year gentleman known to me from previous admission, history of some cervical surgery with laminectomy, quadriparesis, bedridden, bladder outlet obstruction, had indwelling catheter, suspected sleep apnea syndrome, history of decubiti ulcer, brought into emergency room with abdominal pain, found to have leukocytosis with UTI, was admitted. Ceron catheter was changed, had some bloody secretion, seen by Infectious Disease, started on antibiotics, chcf, usually does not use CPAP. This morning had some cough with blood-tinged sputum production. No nausea, no vomiting. No diarrhea reported. PAST MEDICAL HISTORY: Quadriparesis, history of laminectomy, chronic obstructive lung disease, morbid obesity, recurrent UTI, bladder outlet obstruction requiring Ceron catheter. ALLERGIES: ALLERGIC TO PENICILLIN. SOCIAL HISTORY Nonsmoker, nondrinker. FAMILY HISTORY No significant cardiopulmonary disease reported. MEDICATIONS: He is on Azactam 1 g IV every 8 hours, Coumadin 6 mg will be given, vitamin D 50,000 units weekly, Ecotrin 81 mg daily, Levemir 10 units at bedtime, metoprolol tartrate 25 mg b.i.d., melatonin 3 mg at bedtime, Pepcid 20 mg at bedtime, Singulair 10 mg daily, Tylenol p.r.n., Xopenex inhaler every 6 hours., Zestril 20 mg twice a day. REVIEW OF SYSTEMS: No headache, no rhinitis, cough with blood-tinged sputum. No chest pain, nausea, no vomiting. No diarrhea. No leg pain, has decubiti ulcer. PHYSICAL EXAMINATION: GENERAL: Lying in the bed, no acute distress. VITAL SIGNS: Temperature is 98, heart rate 77, respiratory rate is 20, blood pressure 129/74, pulse ox is 95% on room air. HEENT: Moist mucous membranes. Crowded airway. Mallampati score is 4. NECK: Supple. No JVD. LUNGS: Has fair airflow with few rhonchi. HEART: S1, S2. ABDOMEN: Soft, nontender, no organomegaly, has a Ceron catheter. EXTREMITIES: No edema. NEUROLOGIC: Awake, alert, follows simple commands. LABORATORY DATA: Shows hemoglobin is 14.9, hematocrit 46, WBC 19,000, platelet is 270. INR 2.20. Has a VBG done which showed pH 7.35, pCO2 of 51, O2 of 103, that is on supplemental oxygen. Sodium 137, potassium 4.3, chloride 100, bicarbonate 27, BUN 29, creatinine 1.1, glucose 209, calcium is 8.5. Iron is 43, TIBC 244, triglyceride is 126. Cholesterol is 191. Vitamin B12 of 540. Folate 9. TSH 0.87. Urinalysis shows WBC too numerous to count, RBC too numerous to count. Microbiology, blood culture has gram-positive cocci, 1/2 and urine culture has gram-negative rods. IMPRESSION AND PLAN: Recurrent urinary tract infection, bladder outlet obstruction requiring Ceron catheter. May also have a bacteremia, hemoptysis, chronic obstructive lung disease, may have sleep apnea syndrome, has quadriparesis. We will add inhaled bronchodilator, get chest x-ray. If bleeding does not stop, may need CT. We will place on BiPaP 03/11 with 30% oxygen while sleeping. The patient is already on antibiotics. Thank you and we will follow with you. Yosef Dunbar MD
[2017-10-22] MEDS: Aztreonam 1 Gm in NS 100mL 100 ML IVPB SCH ×3 (05:50→21:42)
[2017-10-22] MEDS: Acetylcysteine 20% Inhal Soln (4ml) IH SCH ×2 (07:50→20:00)
[2017-10-22] MEDS: Budesonide 0.5 mg/2 ml Inhal Susp UD IH SCH ×2 (07:50→20:00)
[2017-10-22] MEDS: Insulin Reg-LOW-Coverage SC SCH ×4 (08:25→21:13)
--- NOTE | 2017-10-22 09:28 | RAD ---
HISTORY: Hemoptysis COMPARISON: 07/10/2017 FINDINGS: LUNGS: No active pulmonary disease. PLEURA: No significant pleural effusion identified, no pneumothorax apparent. CARDIOVASCULAR: Cardiomegaly. No evidence of acute, significant cardiovascular disease. OSSEOUS STRUCTURES: No significant abnormalities. VISUALIZED UPPER ABDOMEN: Normal. OTHER FINDINGS: None. IMPRESSION: No active disease.
[2017-10-22] MEDS ORDERED: Ergocalciferol 50,000 Intl Units Cap PO SCH (10:00)
[2017-10-22] MEDS ORDERED: Non Formulary Medication (Cholecalciferol (Vitamin D3) [Vitamin D3] 50,000 UNIT) PO SCH (10:00)
--- NOTE | 2017-10-22 16:08 | PN ---
DATE: 10/22/2017 PULMONARY PROGRESS NOTE REFERRING PHYSICIAN: Thalia Frazier MD SUBJECTIVE: He is lying in the bed, head at 45 degrees. Night was unremarkable, tolerated CPAP well. No more hemoptysis. Still have some cough. No nausea. No vomiting. No diarrhea. There is Ceron catheter. No leg pain or leg swelling. OBJECTIVE: GENERAL: In no acute distress. VITAL SIGNS: Temperature is 98, heart rate is 105, respiratory rate is 20, blood pressure 119/59, pulse ox 91% on room air. HEENT: Moist mucous membrane. Crowded airway. NECK: Supple. No JVD. LUNGS: Has a scattered rhonchi, overall fair airflow. HEART: S1 and S2. ABDOMEN: Soft, nontender. No organomegaly. EXTREMITIES: No edema. NEUROLOGICAL: Awake and alert. Follows simple command. MEDICATIONS: He is on Mucomyst 20% inhaled twice a day, Azactam 100 mg every 8 hours, Coumadin 6 mg will be given tonight, vitamin D 1 capsule weekly, DuoNeb every 6 hours, Ecotrin 81 mg daily, insulin coverage, Levemir 10 units subcu at bedtime, metoprolol tartrate 25 mg twice a day, Pepcid 20 mg at bedtime, Pulmicort 0.5 mg inhaled twice a day, Tylenol p.r.n., Xopenex inhaled every 6 hours, Zestril 20 mg twice a day. LABORATORY DATA: Reviewed. No new lab is available. Blood culture has Staphylococcus coagulase-negative. Urine culture has Proteus mirabilis and E. coli. Chest x-ray done today show there is no infiltrate or effusion reported. IMPRESSION AND PLAN: Sepsis with bacteremia, recurrent urinary tract infection, bladder outlet obstruction with indwelling catheter, chronic obstructive lung disease with hemoptysis, sleep apnea syndrome, quadriparesis, decubiti ulcer. Feels better. No more hemoptysis. Still have a cough. Source of bacteremia (?). Is this from decubiti ulcer (?). Continue antibiotics as per Infectious Diseases. Keep head at 45 degrees. Encourage CPAP use. Bronchodilator. Thank you and we will follow with you. Yosef Dunbar MD
[2017-10-22] MEDS ORDERED: Gentamicin 80 mg/2mL Inj. IVPB SCH (17:30)
--- NOTE | 2017-10-22 17:32 | CP.PCM.PN ---
Subjective - Date & Time of Evaluation Date of Evaluation: 10/22/17 Time of Evaluation: 15:00 - Subjective Subjective: Infectious Disease Follow Up: October 22, 2017 56 yo male with morbid obesity [place] [facility] [place] [facility] for change of montague catheter and pain around catheter site. The patient states abdominal pain and subjective fevers and chills. Urinalysis suggestive of UTI. The patient also has leukocytosis of 26.8 on admission and now at 19.0. Urine cultures pending. Blood cultures showing coagulase negative staph... likely contamination. On prior hospitalizations, the patient had Enterococcus and E. coli. For this hospitalization, the patient has Proteus and ESBL+ E. coli. Will give Gentamicin for antibiotic treatment. Objective - Vital Signs/Intake and Output Vital Signs (last 24 hours): Temp Pulse Resp BP Pulse Ox 98 F 105 H 91 H 119/59 L 96 10/22/17 12:00 10/22/17 12:00 10/22/17 12:00 10/22/17 12:00 10/22/17 06:00 Intake and Output: 10/22/17 10/22/17 06:59 18:59 Intake Total 620 Output Total 1200 Balance -580 - Medications Medications: Current Medications Acetaminophen (Tylenol 325mg Tab) 2 mg PO PRN PRN PRN Reason: Pain, Mild (1-3) Acetaminophen (Tylenol 325mg Tab) 650 mg PO Q4H PRN PRN Reason: Pain, moderate (4-7) Last Admin: 10/22/17 15:28 Dose: 650 mg Acetylcysteine (Acetylcysteine 20%) 3 ml IH BID [facility] Last Admin: 10/22/17 07:50 Dose: Not Given Albuterol/Ipratropium (Duoneb 3 Mg/0.5 Mg (3 Ml) Ud) 3 ml IH [id number] [facility] Last Admin: 10/22/17 14:20 Dose: 3 ml Aspirin (Ecotrin) 81 mg PO DAILY [facility] Last Admin: 10/22/17 10:22 Dose: 81 mg Budesonide (Pulmicort Respules) 0.5 mg IH [id number] [facility] Last Admin: 10/22/17 07:50 Dose: 0.5 mg Ergocalciferol (Drisdol 50,000 Intl Units Cap) 1 cap PO SUN [facility] Last Admin: 10/22/17 10:22 Dose: 1 cap Famotidine (Pepcid) 20 mg PO [facility] Last Admin: 10/21/17 22:07 Dose: 20 mg Gentamicin Sulfate (Gentamicin) 720 mg 4 mg/kg (720 mg) IVPB Q24H [facility] PRN Reason: Protocol Stop: 10/24/17 23:59 Aztreonam (Azactam 1 Gm) 100 mls @ 100 mls/hr IVPB Q8 [facility] PRN Reason: Protocol Last Admin: 10/22/17 15:24 Dose: 100 mls/hr Insulin Detemir (Levemir) 10 unit SC [facility] Last Admin: 10/21/17 22:06 Dose: 10 unit Insulin Human Regular (Humulin R Low) 0 units SC [facility] PRN Reason: Protocol Last Admin: 10/22/17 12:34 Dose: 2 units Levalbuterol HCl (Xopenex) 1.25 mg IH [id number] PRN PRN Reason: Shortness of Breath Last Admin: 10/21/17 23:34 Dose: 1.25 mg Lisinopril (Zestril) 20 mg PO BID [facility] Last Admin: 10/22/17 10:22 Dose: 20 mg Metoprolol Tartrate (Lopressor) 25 mg PO BID [facility] Last Admin: 10/22/17 10:22 Dose: 25 mg Montelukast Sodium (Singulair) 10 mg PO [facility] Last Admin: 10/21/17 22:07 Dose: 10 mg Melatonin [Melatonin (] 3 Mg (Home Med)) 3 mg PO [facility] Warfarin Sodium (Coumadin) 6 mg PO 1800 [facility] PRN Reason: Protocol Last Admin: 10/21/17 17:22 Dose: 6 mg - Labs Labs: 10/21/17 06:00 10/21/17 06:00 PT 25.7 SECONDS (9.4-12.5) H 10/20/17 08:30 INR 2.20 (0.93-1.08) H 10/20/17 08:30 APTT 40.2 Seconds (25.1-36.5) H 10/20/17 08:30 - Constitutional Appears: Non-toxic, No Acute Distress, Chronically Ill - Head Exam Head Exam: ATRAUMATIC, NORMOCEPHALIC - Eye Exam Eye Exam: EOMI, PERRL Pupil Exam: NORMAL ACCOMODATION, PERRL - ENT Exam ENT Exam: Mucous Membranes Moist, Normal External Ear Exam, TM's Normal Bilaterally - Neck Exam Neck Exam: Full ROM, Normal Inspection - Respiratory Exam Respiratory Exam: Clear to Ausculation Bilateral, NORMAL BREATHING PATTERN. absent: Rales, Rhonchi, Wheezes - Cardiovascular Exam Cardiovascular Exam: REGULAR RHYTHM, RRR, +S1, +S2 - GI/Abdominal Exam GI & Abdominal Exam: Soft, Normal Bowel Sounds. absent: Distended, Tenderness - Extremities Exam Extremities Exam: Full ROM, Normal Inspection - Neurological Exam Neurological Exam: Alert, Awake, CN II-XII Intact, Oriented x3 Additional comments: bedridden. legally blind. - Psychiatric Exam Psychiatric exam: Normal Affect, Normal Mood - Skin Skin Exam: Intact, Normal Color Assessment and Plan - Assessment and Plan (Free Text) Assessment: 56 yo male with abdominal pain and complaints of subjective fevers and chills. The patient was found to have leukocytosis. Given Gentamicin and Zyvox in the ER. History of E. coli and Enterococcus in the past hospitalizations. Supportive care. Continue with Aztreonam. Awaiting urine cultures. Blood cultures with coagulase negative staph. Urine cultures showing Proteus and ESBL+ E. Coli. Will add 3 days of daily Gentamicin at 4 mg/kg/day. (approximately 720 mg for this patient). Suprapubic catheter exchange done. Thank you for allowing me to participate in the care of the patient, we will follow with you.
[2017-10-22] MEDS: Gentamicin 500 MG in Sodium Chloride 0.9% 250 ML IVPB SCH (19:19)
[2017-10-22] MEDS: MELATONIN 3 MG PO SCH ×2 (21:14→21:42)
[2017-10-22] MEDS: Insulin Detemir 100 units/ml Vial (Levemir) SC SCH (21:42)
[2017-10-23] MEDS: Levalbuterol 1.25 MG/3 ML Inhal Soln UD IH PRN (00:26)
[2017-10-23] MEDS: Albuterol-Ipratrop 3 mg / 0.5 (3 ml) UD IH SCH ×4 (01:47→19:50)
--- NOTE | 2017-10-23 02:59 | PN ---
DATE: 10/22/2017 SUBJECTIVE: Patient is a 56-year-old male. Patient was seen and examined on 10/22/2017 at the bedside, looking comfortable, still complaining about lower abdominal pain. No nausea, vomiting, or diarrhea. No hematuria or hematochezia. No headache or dizziness. No fever. No chills. There is a Ceron catheter. Getting IV antibiotics. PHYSICAL EXAMINATION: VITAL SIGNS: Temperature 98, heart rate 105, respiratory rate 20, blood pressure 119/59, pulse oximetry 91% on room air. HEENT: Head is normocephalic, atraumatic. Eyes, PERRLA. Extraocular muscles intact. Conjunctivae clear. Nose patent. Mucous membranes moist. NECK: Supple. No carotid bruits. No JVD or thyromegaly. CHEST: Bilaterally symmetrical. HEART: S1 and S2 positive. LUNGS: Clear to auscultation. ABDOMEN: Soft. Bowel sounds present. No organomegaly. EXTREMITIES: No edema. No cyanosis. NEUROLOGICAL: Patient is awake and alert, follows simple commands. MEDICATIONS: Mucomyst, Azactam, Coumadin, vitamin B1, DuoNeb, insulin coverage, Levemir, metoprolol, Pepcid, Pulmicort, Tylenol, Xopenex, Zestril. LABORATORY DATA: We do not have recent labs today, but I reviewed old labs. ASSESSMENT AND PLAN: Mr. Marcus Valdovinos is a 56-year-old male came with sepsis with bacteremia, recurrent urinary tract infection, bladder outlet obstruction with indwelling catheter, chronic obstructive lung disease with hemoptysis, sleep apnea syndrome, quadriparesis, decubitus ulcer. No more hemoptysis, still have cough. Source of bacteremia looks like urinary tract infection. Continue antibiotics as per Infectious Disease. Keep head elevated at about 45 degrees. Encourage CPAP. The patient has comorbid obesity, has history of paraplegia. Gastrointestinal and deep vein thrombosis prophylaxis. Repeat labs. We will follow up. Thalia Frazier MD
[2017-10-23] MEDS: Aztreonam 1 Gm in NS 100mL 100 ML IVPB SCH ×3 (05:00→22:05)
[2017-10-23] MEDS: Acetylcysteine 20% Inhal Soln (4ml) IH SCH ×2 (08:45→19:50)
[2017-10-23] MEDS: Budesonide 0.5 mg/2 ml Inhal Susp UD IH SCH ×2 (08:45→19:50)
[2017-10-23 08:58] LABS: INR 2.17 (0.93-1.08); PROTHROMBIN TIME 25.4 SECONDS (9.4-12.5)
[2017-10-23 10:03] LABS: HEMOGLOBIN 14.7 g/dL (14.0-18.0); MEAN CELL VOLUME 82.4 fl (80.0-105.0); MEAN CORPUSCULAR HEMOGLOBIN 26.7 pg (25.0-35.0); MEAN CORPUSCULAR HGB CONC 32.5 g/dl (31.0-37.0); MEAN PLATELET VOLUME 11.5 fl (7.0-11.0); RBC 5.5 10^6/uL (3.5-6.1); RED CELL DISTRIBUTION WIDTH 14.7 % (11.5-14.5); WHITE BLOOD COUNT 10.5 10^3/ul (4.5-11.0)
[2017-10-23] MEDS: Insulin Reg-LOW-Coverage SC SCH ×4 (10:04→22:06)
--- NOTE | 2017-10-23 16:29 | CP.PCM.PN ---
Subjective - Date & Time of Evaluation Date of Evaluation: 10/23/17 Time of Evaluation: 13:00 - Subjective Subjective: Infectious Disease Follow Up: October 23, 2017 56 yo male with morbid obesity [place] [facility] [place] [facility] for change of montague catheter and pain around catheter site. The patient states abdominal pain and subjective fevers and chills. Urinalysis suggestive of UTI. The patient also has leukocytosis of 26.8 on admission and now at 19.0. Urine cultures pending. Blood cultures showing coagulase negative staph... likely contamination. On prior hospitalizations, the patient had Enterococcus and E. coli. For this hospitalization, the patient has Proteus and ESBL+ E. coli. Will give Gentamicin for antibiotic treatment for 3 days. On day 2 of Gentamicin today. Objective - Vital Signs/Intake and Output Vital Signs (last 24 hours): Temp Pulse Resp BP Pulse Ox 98.4 F 76 20 146/92 H 94 L 10/23/17 12:00 10/23/17 12:00 10/23/17 12:00 10/23/17 12:00 10/23/17 05:28 Intake and Output: 10/23/17 10/23/17 06:59 18:59 Intake Total 1230 Output Total 1300 Balance -70 - Medications Medications: Current Medications Acetaminophen (Tylenol 325mg Tab) 2 mg PO PRN PRN PRN Reason: Pain, Mild (1-3) Acetaminophen (Tylenol 325mg Tab) 650 mg PO Q4H PRN PRN Reason: Pain, moderate (4-7) Last Admin: 10/23/17 11:30 Dose: 650 mg Acetylcysteine (Acetylcysteine 20%) 3 ml IH BID [facility] Last Admin: 10/23/17 08:45 Dose: 3 ml Albuterol/Ipratropium (Duoneb 3 Mg/0.5 Mg (3 Ml) Ud) 3 ml IH [id number] [facility] Last Admin: 10/23/17 14:14 Dose: 3 ml Aspirin (Ecotrin) 81 mg PO DAILY [facility] Last Admin: 10/23/17 10:04 Dose: 81 mg Budesonide (Pulmicort Respules) 0.5 mg IH [id number] [facility] Last Admin: 10/23/17 08:45 Dose: 0.5 mg Ergocalciferol (Drisdol 50,000 Intl Units Cap) 1 cap PO SUN [facility] Last Admin: 10/22/17 10:22 Dose: 1 cap Famotidine (Pepcid) 20 mg PO [facility] Last Admin: 10/22/17 21:42 Dose: 20 mg Aztreonam (Azactam 1 Gm) 100 mls @ 100 mls/hr IVPB Q8 [facility] PRN Reason: Protocol Last Admin: 10/23/17 13:12 Dose: 100 mls/hr Gentamicin Sulfate 500 mg/ (Sodium Chloride) 262.5 mls @ 100 mls/hr IVPB Q24H [facility] Last Admin: 10/22/17 19:19 Dose: 100 mls/hr Insulin Detemir (Levemir) 10 unit SC [facility] Last Admin: 10/22/17 21:42 Dose: 10 unit Insulin Human Regular (Humulin R Low) 0 units SC [facility] PRN Reason: Protocol Last Admin: 10/23/17 13:12 Dose: 2 units Levalbuterol HCl (Xopenex) 1.25 mg IH [id number] PRN PRN Reason: Shortness of Breath Last Admin: 10/23/17 00:26 Dose: 1.25 mg Lisinopril (Zestril) 20 mg PO BID [facility] Last Admin: 10/23/17 10:05 Dose: 20 mg Metoprolol Tartrate (Lopressor) 25 mg PO BID [facility] Last Admin: 10/23/17 10:05 Dose: 25 mg Montelukast Sodium (Singulair) 10 mg PO [facility] Last Admin: 10/22/17 21:42 Dose: 10 mg Melatonin [Melatonin (] 3 Mg (Home Med)) 3 mg PO [facility] Last Admin: 10/22/17 21:42 Dose: Not Given Warfarin Sodium (Coumadin) 6 mg PO 1800 [facility] PRN Reason: Protocol Last Admin: 10/22/17 19:18 Dose: 6 mg - Labs Labs: 10/23/17 08:30 10/21/17 06:00 PT 25.4 SECONDS (9.4-12.5) H 10/23/17 08:30 INR 2.17 (0.93-1.08) H 10/23/17 08:30 APTT 40.2 Seconds (25.1-36.5) H 10/20/17 08:30 - Constitutional Appears: Non-toxic, No Acute Distress, Chronically Ill - Head Exam Head Exam: ATRAUMATIC, NORMOCEPHALIC - Eye Exam Eye Exam: EOMI, PERRL Pupil Exam: NORMAL ACCOMODATION, PERRL - ENT Exam ENT Exam: Mucous Membranes Moist, Normal External Ear Exam, TM's Normal Bilaterally - Neck Exam Neck Exam: Full ROM, Normal Inspection - Respiratory Exam Respiratory Exam: Clear to Ausculation Bilateral, NORMAL BREATHING PATTERN. absent: Rales, Rhonchi, Wheezes - Cardiovascular Exam Cardiovascular Exam: REGULAR RHYTHM, RRR, +S1, +S2 - GI/Abdominal Exam GI & Abdominal Exam: Soft, Normal Bowel Sounds. absent: Distended, Tenderness - Extremities Exam Extremities Exam: Full ROM, Normal Inspection - Neurological Exam Neurological Exam: Alert, Awake, Oriented x3 Additional comments: bedridden. legally blind. - Psychiatric Exam Psychiatric exam: Normal Affect, Normal Mood - Skin Skin Exam: Intact, Normal Color Assessment and Plan - Assessment and Plan (Free Text) Assessment: 56 yo male with abdominal pain and complaints of subjective fevers and chills. The patient was found to have leukocytosis. Given Gentamicin and Zyvox in the ER. History of E. coli and Enterococcus in the past hospitalizations. Supportive care. Continue with Aztreonam. Awaiting urine cultures. Blood cultures with coagulase negative staph. Urine cultures showing Proteus and ESBL+ E. Coli. Will add 3 days of daily Gentamicin at 4 mg/kg/day. (approximately 500 mg for this patient at ideal body weight). On day 2 of Gentamicin. Suprapubic catheter exchange done. Thank you for allowing me to participate in the care of the patient, we will follow with you.
[2017-10-23] MEDS: Gentamicin 500 MG in Sodium Chloride 0.9% 250 ML IVPB SCH (17:24)
[2017-10-23] MEDS: Insulin Detemir 100 units/ml Vial (Levemir) SC SCH (22:06)
--- NOTE | 2017-10-23 22:29 | PCM.URO ---
Urology Progress Note - Objective Lab Studies: Reviewed (gu dx:nonworking catheter now working gu plans: montague to sd and antibiotics) Lab Results Last 24 Hours: Laboratory Results - last 24 hr 10/20/17 10/21/17 10/21/17 23:14 07:27 11:34 WBC RBC Hgb Hct MCV MCH MCHC RDW Plt Count MPV PT INR POC Glucose (mg/dL) 246 H 176 H 257 H 10/21/17 10/21/17 10/22/17 16:22 21:29 08:03 WBC RBC Hgb Hct MCV MCH MCHC RDW Plt Count MPV PT INR POC Glucose (mg/dL) 217 H 222 H 171 H 10/22/17 10/22/17 10/22/17 12:01 17:16 21:08 WBC RBC Hgb Hct MCV MCH MCHC RDW Plt Count MPV PT INR POC Glucose (mg/dL) 207 H 211 H 220 H 10/23/17 10/23/17 10/23/17 07:12 08:30 08:30 WBC 10.5 D RBC 5.50 Hgb 14.7 Hct 45.3 MCV 82.4 MCH 26.7 MCHC 32.5 RDW 14.7 H Plt Count 232 MPV 11.5 H PT 25.4 H INR 2.17 H POC Glucose (mg/dL) 163 H 10/23/17 10/23/17 10/23/17 11:36 16:23 21:25 WBC RBC Hgb Hct MCV MCH MCHC RDW Plt Count MPV PT INR POC Glucose (mg/dL) 232 H 213 H 186 H Intake & Output: Intake & Output 10/23/17 10/23/17 10/24/17 06:59 18:59 06:59 Intake Total 1230 Output Total 1300 Balance -70 Weight 393 lb Intake: IV 450 Left Hand 450 Oral 780 Output: Urine 1300 Urethral (Montague) 1300 Other: # Bowel Movements 0 Vital Signs: Vital Signs - 24 hr 10/23/17 10/23/17 10/23/17 00:01 00:27 01:49 Temperature 99.5 F Pulse Rate 71 71 75 Respiratory 20 Rate Blood Pressure 126/68 O2 Sat by Pulse 96 Oximetry 10/23/17 10/23/17 10/23/17 05:28 10:05 12:00 Temperature 98.0 F 98.4 F Pulse Rate 68 81 76 Respiratory 20 20 Rate Blood Pressure 155/95 H 142/77 146/92 H O2 Sat by Pulse 94 L Oximetry 10/23/17 17:25 Temperature 98 F Pulse Rate 72 Respiratory 18 Rate Blood Pressure 176/97 H O2 Sat by Pulse Oximetry
[2017-10-24] MEDS: MELATONIN 3 MG PO SCH (00:52)
[2017-10-24] MEDS: Albuterol-Ipratrop 3 mg / 0.5 (3 ml) UD IH SCH ×3 (02:08→13:25)
--- NOTE | 2017-10-24 02:24 | PN ---
DATE: 10/23/2017 SUBJECTIVE: Patient is a 56-year-old male. Patient was seen and examined on the bedside, looking comfortable. No nausea, vomiting, or diarrhea. No hematuria or hematochezia. No swelling of the legs. No chest pain. No palpitation. No headache or dizziness. Lower abdominal pain is getting better. No fever. No chills. PHYSICAL EXAMINATION: VITAL SIGNS: Temperature 98.4, pulse 76, respiratory rate 20, blood pressure , pulse oximetry 94%. HEENT: Head is normocephalic, atraumatic. Eyes, PERRLA. Extraocular muscles intact. Conjunctivae clear. Nose patent. Mucous membranes moist. NECK: Supple. No carotid bruits. No JVD or thyromegaly. CHEST: Bilaterally symmetrical. HEART: S1 and S2 positive. LUNGS: Clear to auscultation. ABDOMEN: Soft. Bowel sounds present. No organomegaly. EXTREMITIES: No edema. No cyanosis. NEUROLOGICAL: Patient is awake and alert. Moving all four extremities. No focal deficits. MEDICATIONS: Tylenol, acetaminophen, DuoNeb, Ecotrin, Pulmicort, vitamin D, Pepcid, Azactam, gentamicin, Levemir, insulin, Xopenex, Zestril, Lopressor, Singulair, melatonin, Coumadin. LABORATORY DATA: White blood cell 10.5, hemoglobin 14.7, hematocrit 45.3, platelets 232. Sodium 137, potassium 4.3, BUN 13, creatinine 1.1. Glucose 209. ASSESSMENT AND PLAN: Mr. Marcus Valdovinos is a 56-year-old male with multiple medical problems, came with feverish and chills feeling; the patient was found to have leukocytosis, given acetaminophen and Zosyn in the ER; history of Escherichia coli and Enterococcus in the past hospitalization. Continue Azactam, waiting for urine cultures. Blood cultures with coagulase-negative Staph. Urine cultures are showing proteus and extended-spectrum beta-lactamase plus Escherichia coli. We will add three days of daily gentamicin for 4 mg per kg per day, approximately 500 of this patient at ideal body weight, on day #2 of gentamicin. History of obesity, chronic obstructive pulmonary disease, obstructive sleep apnea syndrome, pannectomy, has indwelling Ceron catheter, decubitus ulcer. We will continue antibiotics, repeat labs. We will follow up. Thalia Frazier MD
[2017-10-24] MEDS: Aztreonam 1 Gm in NS 100mL 100 ML IVPB SCH ×2 (07:14→13:34)
[2017-10-24 07:22] LABS: HEMOGLOBIN 14.4 g/dL (14.0-18.0); MEAN CORPUSCULAR HEMOGLOBIN 26.7 pg (25.0-35.0); MEAN CORPUSCULAR HGB CONC 32.5 g/dl (31.0-37.0); MEAN PLATELET VOLUME 10.5 fl (7.0-11.0); RBC 5.4 10^6/uL (3.5-6.1); RED CELL DISTRIBUTION WIDTH 14.6 % (11.5-14.5); WHITE BLOOD COUNT 11.2 10^3/ul (4.5-11.0)
[2017-10-24] MEDS: Acetylcysteine 20% Inhal Soln (4ml) IH SCH (07:25)
[2017-10-24] MEDS: Budesonide 0.5 mg/2 ml Inhal Susp UD IH SCH (07:25)
[2017-10-24 07:40] LABS: BLOOD UREA NITROGEN 11 mg/dL (7-21); CALCIUM 8.7 mg/dL (8.4-10.5); GFR AFRICAN-AMERICAN > 60; GFR NON-AFRICAN AMERICAN > 60
[2017-10-24] MEDS: Insulin Reg-LOW-Coverage SC SCH ×3 (07:55→16:53)
[2017-10-24 08:28] VITALS: BP 104/89; PULSE 74; RESP 19; TEMP 98.1; O2SAT 97
--- NOTE | 2017-10-24 08:47 | PN ---
DATE: 10/23/2017 PULMONARY PROGRESS NOTE REFERRING PHYSICIAN: Thalia Frazier MD. SUBJECTIVE: Patient is lying in the bed, head at 45 degrees. Night was unremarkable. Tolerated CPAP well. Still has some cough. No hemoptysis. No chest pain. No nausea, no vomiting, no diarrhea. Great toe has some pain. OBJECTIVE GENERAL: In no acute distress. VITAL SIGNS: Temp is 98, heart rate is 81, respiratory rate is 20, blood pressure 146/92, pulse ox 94% on room air. HEENT: Moist mucous membrane. Crowded airway. NECK: Supple. No JVD. LUNGS: Scattered rhonchi. HEART: S1 and S2. ABDOMEN: Soft and nontender. No organomegaly. EXTREMITIES: No edema. NEUROLOGICAL: Awake and alert. Follows simple command. MEDICATIONS: He is on Mucomyst inhaled twice a day, Azactam 1 g IV every 8 hours, Coumadin 6 mg daily, vitamin D 50,000 units weekly, DuoNeb every 6 hours, Ecotrin 81 mg daily, gentamicin 500 mg every 24 hours, insulin coverage, Levemir 10 units subcu at bedtime, metoprolol tartrate 25 mg twice a day, Pepcid 20 mg daily, inhaled twice a day, Singulair 10 mg daily, Tylenol p.r.n., Xopenex inhaled every 6 hours p.r.n., Zestril 20 mg twice a day. LABORATORY DATA: Shows hemoglobin 14.7, hematocrit 45.3, WBC 10.5, platelet count is 232. INR 2.17. Blood sugar 232. Microbiology: Blood culture has staph coag negative, and urine has Proteus mirabilis and E. coli. IMPRESSION AND PLAN: Sepsis and bacteremia, also has recurrent urinary tract infection, bladder outlet obstruction requiring indwelling catheter, chronic obstructive lung disease status post hemoptysis, sleep apnea syndrome, paresis, decubitus ulcer, has ulcer on the great toe. Spoke to nursing staff. Will get Podiatry to see the patient. Continue bronchodilator. Keep head at 45 degrees, continuous positive airway pressure, also being followed by Infectious Diseases. Thank you and we will follow with you. Yosef Dunbar MD [facility] # [id number]
--- NOTE | 2017-10-24 12:29 | PN ---
DATE: 10/23/2017 SUBJECTIVE: See the previously dictated note and procedure note from 10/20/2017. At that time, we inserted a new Ceron catheter. On 10/23/2017, the patient has , catheter is draining well. No new urinary complaints. Physical examination is unchanged. Urine is relatively clear. The diagnoses are urinary retention, voiding dysfunction and Ceron catheter. At this point, we have the catheter that is working improving clinically. ID notes were noted. Previous Urology notes and the medical notes were noted. The patient remained stable. The plan will be to maintain a Ceron catheter and then, further plans to follow. We are going to make arrangements for followup of removal and insertion of the Ceron on a more regular basis. Ankit Ly MD
--- NOTE | 2017-10-24 16:01 | PN ---
DATE: 10/24/2017 UROLOGY PROGRESS NOTE SUBJECTIVE: The patient is resting comfortably. . He is currently resting comfortably. Eating, no problems. Ceron catheter is in place, draining well. So, diagnoses are catheter, urinary retention, voiding dysfunction. Plans as follows, we may change his Ceron catheter and we will make sure we . I explained to the patient the importance of routine followup. . We spoke to the long term previously. We will try to emphasize the importance to the catheter care, irrigation and routine maintenance and changes. Ankit Ly MD
[2017-10-24] MEDS: Gentamicin 500 MG in Sodium Chloride 0.9% 250 ML IVPB SCH (17:00)
--- NOTE | 2017-10-24 19:25 | CP.PCM.PN ---
Subjective - Date & Time of Evaluation Date of Evaluation: 10/24/17 Time of Evaluation: 13:30 - Subjective Subjective: Infectious Disease Follow Up: October 24, 2017 56 yo male with morbid obesity [place] [facility] [place] [facility] for change of montague catheter and pain around catheter site. The patient states abdominal pain and subjective fevers and chills. Urinalysis suggestive of UTI. The patient also has leukocytosis of 26.8 on admission and now at 19.0. Urine cultures pending. Blood cultures showing coagulase negative staph... likely contamination. On prior hospitalizations, the patient had Enterococcus and E. coli. For this hospitalization, the patient has Proteus and ESBL+ E. coli. Will give Gentamicin for antibiotic treatment for 3 days. On day 3 of Gentamicin today. Patient having no new complaints. Objective - Vital Signs/Intake and Output Vital Signs (last 24 hours): Temp Pulse Resp BP Pulse Ox 98.1 F 74 19 104/89 97 10/24/17 08:28 10/24/17 08:28 10/24/17 08:28 10/24/17 08:28 10/24/17 08:28 Intake and Output: 10/24/17 10/25/17 18:59 06:59 Intake Total 600 Balance 600 - Labs Labs: 10/24/17 06:45 10/24/17 06:45 PT 25.4 SECONDS (9.4-12.5) H 10/23/17 08:30 INR 2.17 (0.93-1.08) H 10/23/17 08:30 APTT 40.2 Seconds (25.1-36.5) H 10/20/17 08:30 - Constitutional Appears: Non-toxic, No Acute Distress, Chronically Ill - Head Exam Head Exam: ATRAUMATIC, NORMOCEPHALIC - Eye Exam Eye Exam: EOMI, PERRL Pupil Exam: NORMAL ACCOMODATION, PERRL - ENT Exam ENT Exam: Mucous Membranes Moist, Normal External Ear Exam, TM's Normal Bilaterally - Neck Exam Neck Exam: Full ROM, Normal Inspection - Respiratory Exam Respiratory Exam: Clear to Ausculation Bilateral, NORMAL BREATHING PATTERN. absent: Rales, Rhonchi - Cardiovascular Exam Cardiovascular Exam: REGULAR RHYTHM, RRR, +S1, +S2 - GI/Abdominal Exam GI & Abdominal Exam: Soft, Normal Bowel Sounds. absent: Distended, Tenderness - Extremities Exam Extremities Exam: Full ROM, Normal Inspection - Neurological Exam Neurological Exam: Alert, Awake, CN II-XII Intact, Oriented x3 Additional comments: bedridden. legally blind. - Psychiatric Exam Psychiatric exam: Normal Affect, Normal Mood - Skin Skin Exam: Intact, Normal Color Assessment and Plan - Assessment and Plan (Free Text) Assessment: 56 yo male with abdominal pain and complaints of subjective fevers and chills. The patient was found to have leukocytosis. Given Gentamicin and Zyvox in the ER. History of E. coli and Enterococcus in the past hospitalizations. Supportive care. Continue with Aztreonam. Awaiting urine cultures. Blood cultures with coagulase negative staph. Urine cultures showing Proteus and ESBL+ E. Coli. Will add 3 days of daily Gentamicin at 4 mg/kg/day. (approximately 500 mg for this patient at ideal body weight). On day 3 of Gentamicin. Suprapubic catheter exchange done. Overall, the patient is feeling much better. Thank you for allowing me to participate in the care of the patient, we will follow with you.
--- NOTE | 2017-10-24 19:43 | CON ---
DATE: 10/20/2017 UROLOGY CONSULTATION REASON FOR CONSULTATION: Nonfunctioning catheter. HISTORY OF PRESENT ILLNESS: This is a 56-year-old gentleman quite well. went to the office. We initially changed his catheter in the office on a 4-6 week basis. Apparently, there have been no followup appointment. Looking in the computer actually and investigating, there is no appointment. I will cancel today although he tells that looking in my office records, he comes and usually gets the catheter changed and then leaves the . I think the long term is not able to . Right now, he comes in because he has not good urine output for the last couple of days and needs the catheter changed. He is in the emergency room. See the below procedure note and the assessment and plan. PAST MEDICAL AND SURGICAL HISTORY: As listed on the chart. The patient long term on a social note. REVIEW OF SYSTEMS: As above. MEDICATIONS: As listed on the chart. ALLERGIES: As listed on the chart. PHYSICAL EXAMINATION: GENERAL: A well-nourished male, and body habitus is noted. The Ceron catheter is there, but it is not draining well. on the outside . Subsequently, we took out the catheter and put a new one, a separately dictated procedure note, and it drained a lot of cloudy purulent urine. See the plan listed below. DIAGNOSES: Urinary tract infection and voiding dysfunction. We changed the catheter today and inserted a new one. PLAN: Antibiotics and Ceron catheter and then more routine changes. Thank you for the urology consult. ADDENDUM: See the procedure note. catheter has to be changed on a regular basis and routine catheter care is what would be important. Ankit Ly MD
--- NOTE | 2017-10-25 11:30 | PROCN ---
PROCEDURE DATE: 10/20/2017 PREOPERATIVE DIAGNOSES: The catheter is not working, faulty catheter, urinary retention. POSTOPERATIVE DIAGNOSES: The catheter is not working, faulty catheter, urinary retention. PROCEDURE: Removal and insertion of new catheter under sterile technique. SURGEON: Ankit Ly MD BLOOD LOSS: There is no blood loss. COMPLICATIONS: There are no complications. new catheter. Of note, the catheter that we removed is still encrusted. Explaining the patient general symptoms. DESCRIPTION OF PROCEDURE: After explaining to the patient, what I was going to do, he agreed in the consent. We removed the old catheter and inserted a new one without difficulty. We gained fury of urine in the order of greater than 400-500 mL. There were no complications. ADDENDUM: We just need routine followups to change the catheter on a regular basis. Ankit Ly MD
== END 2017-10-24 18:37 | DRG 698 ==
LOC: ED 08:34 → ERH 09:54 → 2RNO 12:20 → 5RSO 10-23 23:33
PROVIDERS: ADMIT Internal Medicine; ATTEND Internal Medicine
PROC: 0T2BX0Z Change Drainage Device in Bladder, External Approach (ICD-10-PCS; principal; 2017-10-20)
PROC: 5A09357 Assistance with Respiratory Ventilation, Less than 24 Consecutive Hours, Continuous Positive Airway Pressure (ICD-10-PCS; 2017-10-21)
PROC: 05H633Z Insertion of Infusion Device into Left Subclavian Vein, Percutaneous Approach (ICD-10-PCS; 2017-10-24)
PROC: B54NZZA Ultrasonography of Left Upper Extremity Veins, Guidance (ICD-10-PCS; 2017-10-24)
DX: T83.091A Other mechanical complication of indwelling urethral catheter, initial encounter (principal); A41.9 Sepsis, unspecified organism; G82.50 Quadriplegia, unspecified; T83.84XA Pain due to genitourinary prosthetic devices, implants and grafts, initial encounter; N39.0 Urinary tract infection, site not specified; I13.0 Hypertensive heart and chronic kidney disease with heart failure and stage 1 through stage 4 chronic kidney disease, or unspecified chronic kidney disease; R04.2 Hemoptysis; Z68.43 Body mass index [BMI] 50.0-59.9, adult; E11.65 Type 2 diabetes mellitus with hyperglycemia; I50.9 Heart failure, unspecified; H54.62 Unqualified visual loss, left eye, normal vision right eye; B96.20 Unspecified Escherichia coli [E. coli] as the cause of diseases classified elsewhere; B96.4 Proteus (mirabilis) (morganii) as the cause of diseases classified elsewhere; J44.9 Chronic obstructive pulmonary disease, unspecified; N32.0 Bladder-neck obstruction; E66.01 Morbid (severe) obesity due to excess calories; G47.33 Obstructive sleep apnea (adult) (pediatric); L89.899 Pressure ulcer of other site, unspecified stage; E11.22 Type 2 diabetes mellitus with diabetic chronic kidney disease; N18.9 Chronic kidney disease, unspecified; N31.9 Neuromuscular dysfunction of bladder, unspecified; D64.9 Anemia, unspecified; Y84.6 Urinary catheterization as the cause of abnormal reaction of the patient, or of later complication, without mention of misadventure at the time of the procedure; Z74.01 Bed confinement status; Z87.891 Personal history of nicotine dependence; Z79.01 Long term (current) use of anticoagulants; Z79.4 Long term (current) use of insulin; Z79.82 Long term (current) use of aspirin; Z88.0 Allergy status to penicillin; Z86.018 Personal history of other benign neoplasm

== ENCOUNTER 2017-12-06 17:04 | Observation (INO) | payer MEDICARE, MEDICAID ==
[2017-12-06 17:05] VITALS: PULSE 90
[2017-12-06 17:25] VITALS: BMI 55.2
--- NOTE | 2017-12-06 19:05 | ED PDOC ---
Arrival/HPI - General Chief Complaint: Male Genitourinary Time Seen by Provider: 12/06/17 17:22 Historian: Patient - History of Present Illness Narrative History of Present Illness (Text): 12/06/17 19:00 Pt is a 57 yr old male with PMH of DMII, and indwelling Mccauley catheter that presents with leaking at the site x 5 days. Pt says he had the Mccauley placed by Dr Ly on Monday which then began to leak over the course of 5 days. Pt called urology office who instructed him to go to the ED to have it replaced. Denies shortness of breath, chest pain, fever, chills, nausea, vomiting, diarrhea or any other complaints. Urethral/bladder pain rated 6/10. PMD: Dr Frazier Pt is on Coumadin 6mg every other day tapering to 5mg Time/Duration: 1 week Symptom Onset: Gradual Symptom Course: Worsening Quality: Pressure Severity Level: 5 Activities at Onset: Rest Context: Home Past Medical History - Provider Review Nursing Documentation Reviewed: Yes - Travel History Have you recently traveled outside [place] w/in the past 3 mons?: No - Past History Past History: No Previous - Infectious Disease Hx of Infectious Diseases: None - Cardiac Hx Pacemaker: No - Pulmonary Hx Respiratory Disorders: Yes (USED TO SMOKE CIGARETTES 1 PK LASTS 3 WEEKS.) Hx Asthma: Yes Hx Chronic Obstructive Pulmonary Disease (COPD): Yes - Neurological Hx Paralysis: Yes - HEENT Hx HEENT Disorder: Yes Hx Blind: Yes (left eye) - Renal Hx Renal Disorder: Yes (UROSEPSIS MULTIPLE TIMES. MCCAULEY CATH. NEUROPATHIC BLADDER) - Endocrine/Metabolic Hx Endocrine Disorders: Yes Hx Diabetes Mellitus Type 2: Yes - Hematological/Oncological Hx Cancer: No - Integumentary Hx Dermatological Disorder: Yes Other/Comment: ABDOMINAL FOLDS MASD,BILATERAL LE SKIN DRYNESS,LARGE THIN FLAKES, LIGHT BROWN SKIN DISCOLORATION,RIGHT BIG TOE WITH FLUSHED SKIN,SWELLING.STATES NAIL WAS CLIPPED AND NEVER HEALED. - Musculoskeletal/Rheumatological Hx Musculoskeletal Disorders: Yes (CARPAL TUNNEL; ARTHRITIS BACK & LEGS) - Gastrointestinal Hx Gastrointestinal Disorders: Yes Other/Comment: Morbid obesity, incONTINENT - Genitourinary/Gynecological Hx Genitourinary Disorders: Yes Hx Incontinence: Yes Hx Urinary Tract Infection: Yes Other/Comment: chronic Urinary catheter - Psychiatric Hx Psychophysiologic Disorder: No Hx Substance Use: No - Surgical History Hx Mastectomy: No - Anesthesia Hx Anesthesia Reactions: No Hx Malignant Hyperthermia: No - Suicidal Assessment Feels Threatened In Home Enviroment: No Family/Social History - Physician Review Nursing Documentation Reviewed: Yes Family/Social History: Unknown Family HX Smoking Status: Former Smoker Hx Alcohol Use: Yes (OCCASIONALLY) Hx Substance Use: No Hx Substance Use Treatment: No Allergies/Home Meds Allergies/Adverse Reactions: Allergies Penicillins Allergy (Severe, Verified 10/20/17 08:50) ANAPHYLAXIS Home Medications: Home Meds Medication Instructions Recorded Confirmed Aspirin [Ecotrin] 81 mg PO DAILY 07/10/17 10/20/17 Insulin Detemir [Levemir] 10 units SC HS 07/10/17 10/20/17 Warfarin [Coumadin] 6 mg PO DAILY 07/10/17 10/20/17 Cholecalciferol (Vitamin D3) 50,000 unit PO SUN 09/12/17 10/20/17 [Vitamin D3] Melatonin 3 mg PO HS 09/12/17 10/20/17 Acetaminophen [Non-Aspirin Pain 2 tab PO PRN PRN 10/20/17 10/20/17 Relief] Metoprolol Tartrate [Lopressor] 25 mg PO BID 10/20/17 10/20/17 Review of Systems - Review of Systems Constitutional: Normal. absent: Fatigue, Fevers Eyes: Normal. absent: Vision Changes ENT: Normal Respiratory: Normal. absent: SOB, Cough Cardiovascular: Normal. absent: Chest Pain, Palpitations Gastrointestinal: Normal. absent: Abdominal Pain, Stool Changes, Constipation, Diarrhea, Nausea, Vomiting, Appetite Changes Genitourinary Male: Normal, Dysuria, Urinary Output Changes, Other (suprapubic mccauley site leaking ). absent: Hematuria Musculoskeletal: Normal. absent: Arthralgias, Back Pain Skin: Normal. absent: Rash, Pruritis Neurological: Normal. absent: Headache Endocrine: Normal. absent: Diaphoresis Hemo/Lymphatic: Normal Psychiatric: Normal Physical Exam Vital Signs Reviewed: Yes Vital Signs Temp Pulse Resp BP Pulse Ox 12/06/17 17:33 98.1 F 74 18 165/100 H 95 Temperature: Afebrile Blood Pressure: Hypertensive Pulse: Regular Respiratory Rate: Normal Appearance: Positive for: Non-Toxic, Unkept, Uncomfortable Pain Distress: Moderate Mental Status: Positive for: Alert and Oriented X 3 - Systems Exam Head: Present: Atraumatic, Normocephalic Pupils: Present: PERRL Extroacular Muscles: Present: EOMI Conjunctiva: Present: Normal Mouth: Present: Moist Mucous Membranes Neck: Present: Normal Range of Motion Respiratory/Chest: Present: Clear to Auscultation, Good Air Exchange. No: Respiratory Distress, Accessory Muscle Use Cardiovascular: Present: Regular Rate and Rhythm, Normal S1, S2. No: Murmurs Abdomen: Present: Normal Bowel Sounds. No: Tenderness, Distention, Peritoneal Signs Genitourinary Male: Present: Normal External Genitalia, Other (indwelling Mccauley catheter 16 guage). No: Circumcised Penis, Penile Discharge, Testicle Tenderness, Penile Swelling, Erythema, Testicle Swelling Back: Present: Normal Inspection. No: CVA Tenderness Upper Extremity: Present: Normal Inspection. No: Cyanosis, Edema Lower Extremity: Present: Normal Inspection. No: Edema Neurological: Present: GCS=15, CN II-XII Intact, Speech Normal, Motor Func Grossly Intact Skin: Present: Warm, Dry, Normal Color. No: Rashes Psychiatric: Present: Alert, Oriented x 3, Normal Insight, Normal Concentration , Agitated Medical Decision Making ED Course and Treatment: 12/06/17 19:05 Impression Pt is a 57 yr old male with PMH of DMII, and Indwelling Mccauley catheter that presents with leaking at the Mccauley site x 5 days. Plan Replace Mccauley Pain management assess and dispo Progress note Mccauley site assessed by Dr Valencia; will replace with 16 mccauley bedside New Mccauley placed but continues to drain UA positive for UTI with leuk esterase, nitrate and WBC positive Serum WBC: 13.[address] Ly contacted-->advised to admit to med/surg for indwelling mccauley catheter leakage and UTI; admitted under Dr Frazier's service 12/06/17 21:19 pts pain was monitored; morphine 4mg with zofran 4 mg given Pt hemodynamically stable - Lab Interpretations Lab Results: 12/06/17 19:50 12/06/17 19:50 Lab Results 12/06/17 20:20: Urine Color Yellow, Urine Appearance Cloudy, Urine pH 6.0, Ur Specific [place] >= 1.030, Urine Protein >=300 H, Urine Glucose (UA) 250 H, Urine Ketones Trace H, Urine Blood Large H, Urine Nitrate Positive H, Urine Bilirubin Negative, Urine Urobilinogen 1.0 H, Ur Leukocyte Esterase Moderate H, Urine RBC Tntc, Urine WBC Tntc, Ur Epithelial Cells 3 - 4, Urine Bacteria Many 12/06/17 19:50: Sodium 135, Potassium 4.3, Chloride 97 L, Carbon Dioxide 28, Anion Gap 14, BUN 13, Creatinine 0.6 L, Est GFR ( Amer) > 60, Est GFR ( Non-Af Amer) > 60, Random Glucose 276 H, Calcium 8.8, Total Bilirubin 0.3, AST 19, ALT 28, Alkaline Phosphatase 79, Total Protein 7.1, Albumin 3.6, Globulin 3.5, Albumin/Globulin Ratio 1.0 L 12/06/17 19:50: WBC 13.8 H D, RBC 5.98, Hgb 16.2, Hct 48.0, MCV 80.3, MCH 27.1, MCHC 33.8, RDW 14.3, Plt Count 232, MPV 11.3 H, Gran % 74.5 H, Lymph % (Auto) 14.7 L, [place] % (Auto) 8.1 H, Eos % (Auto) 2.5, Baso % (Auto) 0.2, Gran # 10.25 H , Lymph # (Auto) 2.0, [place] # (Auto) 1.1 H, Eos # (Auto) 0.3, Baso # (Auto) 0.03 Interpretation: Abnormal lab values - Medication Orders Current Medication Orders: Acetaminophen (Tylenol 325mg Tab) 650 mg PO Q6H PRN PRN Reason: Pain, Mild (1-3) Last Admin: 12/07/17 11:42 Dose: 650 mg MAR Pain/Vitals Document 12/07/17 11:42 SOUSV (Rec: 12/07/17 11:43 SOUSV [id number]) Pain Reassessment Is This A Pain ReAssessment? No Presence of Pain Presence of Pain Yes Pain Scale Used Pain Scale Used Numeric Location Pain Location Body Site groin Description Intermittent Scale Used Numeric Pain Behavior Irritability Alleviating Factors Medication Albuterol/Ipratropium (Duoneb 3 Mg/0.5 Mg (3 Ml) Ud) 3 ml IH [id number] [facility] Aspirin (Ecotrin) 81 mg PO DAILY [facility] Last Admin: 12/07/17 10:04 Dose: 81 mg Budesonide (Pulmicort Respules) 0.5 mg IH [id number] [facility] Famotidine (Pepcid) 20 mg PO HS [facility] Heparin Sodium (Porcine) (Heparin) 5,000 units SC Q12 [facility] PRN Reason: Protocol Last Admin: 12/07/17 10:04 Dose: 5,000 units Subcutaneous Administrations Document 12/07/17 10:04 SOUSV (Rec: 12/07/17 10:04 SOUSV [id number]) Injection Site MAR Injection Site Left Arm Charges for Administration # of Subcutaneous Administrations 1 Aztreonam (Azactam 1 Gm) 100 mls @ 100 mls/hr IVPB Q8 [facility] PRN Reason: Protocol Stop: 12/07/17 22:59 Insulin Detemir (Levemir) 10 unit SC HS [facility] Insulin Human Regular (Humulin R Low) 0 units SC ACHS [facility] PRN Reason: Protocol Last Admin: 12/07/17 08:35 Dose: 2 units MAR Blood Glucose Document 12/07/17 08:35 SOUSV (Rec: 12/07/17 08:35 SOUSV [id number]) Blood Glucose Finger Stick Blood Glucose (70-120) 217 Subcutaneous Administrations Document 12/07/17 08:35 SOUSV (Rec: 12/07/17 08:35 SOUSV [id number]) Injection Site MAR Injection Site Left Arm Charges for Administration # of Subcutaneous Administrations 1 Lisinopril (Zestril) 20 mg PO BID [facility] Last Admin: 12/07/17 10:03 Dose: 20 mg MAR Pulse and Blood Pressure Document 12/07/17 10:03 SOUSV (Rec: 12/07/17 10:04 SOUSV [id number]) Pulse Pulse Rate (60-90) 83 Blood Pressure Blood Pressure (100/60-150/90) 133/94 Metoprolol Tartrate (Lopressor) 25 mg PO BID [facility] Last Admin: 12/07/17 10:04 Dose: 25 mg MAR Pulse and Blood Pressure Document 12/07/17 10:04 SOUSV (Rec: 12/07/17 10:04 SOUSV [id number]) Pulse Pulse Rate (60-90) 83 Blood Pressure Blood Pressure (100/60-150/90) 133/94 Montelukast Sodium (Singulair) 10 mg PO HS GREG Non-Formulary Medication (Melatonin [Melatonin]) 3 mg PO HS GREG Ondansetron HCl (Zofran Inj) 4 mg IVP Q6H PRN PRN Reason: Nausea/Vomiting Warfarin Sodium (Coumadin) 5 mg PO 1800 GREG PRN Reason: Protocol Discontinued Medications Acetaminophen (Tylenol 325mg Tab) 650 mg PO STAT STA Stop: 12/06/17 19:11 Last Admin: 12/06/17 19:50 Dose: 650 mg MAR Pain/Vitals Document 12/06/17 19:50 AD (Rec: 12/06/17 19:50 AD [id number] Pain Reassessment Is This A Pain ReAssessment? No Presence of Pain Presence of Pain Yes Location Intensity 5 Sodium Chloride (Sodium Chloride 0.9%) 1,000 mls @ 100 mls/hr IV .Q10H STA Stop: 12/07/17 08:16 Last Admin: 12/06/17 22:55 Dose: 100 mls/hr eMAR Start Stop Document 12/06/17 22:55 AD (Rec: 12/06/17 22:55 AD [id number] Intravenous Solution Start Date 12/06/17 Start Time 22:55 Morphine Sulfate (Morphine) 4 mg IM STAT STA Stop: 12/06/17 21:26 Last Admin: 12/06/17 22:15 Dose: 4 mg MAR Pain Assessment Document 12/06/17 22:15 AD (Rec: 12/06/17 22:27 AD [id number] Pain Reassessment Is this a pain reassessment? No Presence of Pain Presence of Pain Yes Pain Scale Used Pain Scale Used Numeric IM Administration Charges Document 12/06/17 22:15 AD (Rec: 12/06/17 22:27 AD [id number] Injection Site MAR Injection Site Right Deltoid Charges for Administration # of IM Administrations 1 Ondansetron HCl (Zofran Tab) 4 mg PO STAT STA Stop: 12/06/17 21:27 Last Admin: 12/06/17 22:26 Dose: 4 mg Disposition/Present on Arrival - Present on Arrival Any Indicators Present on Arrival: Yes History of DVT/PE: No History of Uncontrolled Diabetes: Yes Urinary Catheter: Yes History of Decub. Ulcer: No History Surgical Site Infection Following: None - Disposition Have Diagnosis and Disposition been Completed?: Yes Diagnosis: UTI (urinary tract infection) due to urinary indwelling Mccauley catheter, Leakage of indwelling urinary catheter Disposition: HOSPITALIZED Disposition Time: 21:21 Patient Plan: Admission Patient Problems: Current Active Problems Problem Status Onset UTI (urinary tract infection) due to urinary indwelling Mccauley catheter Acute Leakage of indwelling urinary catheter Acute Condition: STABLE
[2017-12-06 19:55] LABS: BASO # 0.03 K/mm3 (0.0-2.0); BASO % 0.2 % (0.0-3.0); EOS # 0.3 (0.0-0.7); EOS % 2.5 % (1.5-5.0); GRAN # 10.25 (1.4-6.5); GRAN % 74.5 % (50.0-68.0); HEMOGLOBIN 16.2 g/dL (14.0-18.0); LYMPH % 14.7 % (22.0-35.0); MEAN CELL VOLUME 80.3 fl (80.0-105.0); MEAN CORPUSCULAR HEMOGLOBIN 27.1 pg (25.0-35.0); MEAN CORPUSCULAR HGB CONC 33.8 g/dl (31.0-37.0); MEAN PLATELET VOLUME 11.3 fl (7.0-11.0); MONO # 1.1 (0.1-0.6); MONO % 8.1 % (1.0-6.0); RBC 5.98 10^6/uL (3.5-6.1); RED CELL DISTRIBUTION WIDTH 14.3 % (11.5-14.5); WHITE BLOOD COUNT 13.8 10^3/ul (4.5-11.0)
[2017-12-06 20:07] LABS: ALBUMIN 3.6 g/dL (3.0-4.8); ALT/SGPT 28 U/L (7-56); AST/SGOT 19 U/L (17-59); BLOOD UREA NITROGEN 13 mg/dL (7-21); CALCIUM 8.8 mg/dL (8.4-10.5); GFR AFRICAN-AMERICAN > 60; GFR NON-AFRICAN AMERICAN > 60
[2017-12-06 20:30] LABS: URINE APPEARANCE CLOUDY (CLEAR); URINE BILIRUBIN NEGATIVE (NEGATIVE); URINE BLOOD LARGE (NEGATIVE); URINE COLOR YELLOW (YELLOW); URINE GLUCOSE (UA) 250 mg/dL (NEGATIVE); URINE LEUKOCYTE ESTERASE MODERATE Leu/uL (NEGATIVE); URINE PROTEIN >=300 mg/dL (<30 mg/dL)
[2017-12-06 20:35] LABS: URINE RBC TNTC /hpf (0-2); URINE WBC TNTC /hpf (0-6)
[2017-12-06 20:36] LABS: URINE BACTERIA MANY (NEG)
[2017-12-06] MEDS ORDERED: Morphine 4 mg/ml ISec IM STA (21:25)
[2017-12-06] MEDS ORDERED: Sodium Chloride 0.9% 1,000 ML IV STA (22:17)
[2017-12-07 00:27] VITALS: RESP 20
[2017-12-07] MEDS: Insulin Reg-LOW-Coverage SC SCH ×3 (08:35→17:23)
--- NOTE | 2017-12-07 09:02 | CP.PCM.HP ---
<Brien Rico - Last Filed: 12/07/17 12:02> History of Present Illness - History of Present Illness History of Present Illness: Medicine H&P for Dr. Jimena Rico PGY3 HPI: Patient is a 57-year old male with past medical history of hypertension, diabetes mellitus type 2, morbid obesity, COPD, CHF, paroxysmal atrial fibrillation on coumadin, chronic mccauley catheter placement and history of multiple episodes of urinary tract infections who presents from [facility] with c /o mccauley catheter leaking and suprapubic pain. He reports that he had his mccauley replaced on Monday by Dr. Ly and the day prior to presentation it began to leak at the time. He was instructed to come to the emergency room to have it replaced however it continued to leak post replacement and he was noted to have suprapubic pain with a positive urinalysis. He denied chest pain, palpitations, SOB, abdominal pain, nausea, vomiting, fever, chills, cough. 12point ROS as per above otherwise negative PMH: as stated above PSH: Tumor removal of lumbar spine, Right knee surgery, Carpal tunnel surgery bilateral Allergies: Penicillin Family Hx: Non-contributory Social Hx: Denies tobacco, alcohol and illicit drug use PMD: Dr. Campbell Present on Admission - Present on Admission Any Indicators Present on Admission: No Past Patient History - Infectious Disease Hx of Infectious Diseases: None - Past Medical History & Family History Past Medical History?: Yes - Past Social History Smoking Status: Never Smoked - CARDIAC Hx Cardiac Disorders: Yes Hx Hypertension: Yes Hx Pacemaker: No Hx Peripheral Edema: Yes - PULMONARY Hx Respiratory Disorders: Yes (USED TO SMOKE CIGARETTES 1 PK LASTS 3 WEEKS.) Hx Asthma: Yes Hx Chronic Obstructive Pulmonary Disease (COPD): Yes - NEUROLOGICAL Hx Neurological Disorder: Yes HX Cerebrovascular Accident: Yes Other/Comment: Paraplegia/ spinal tumor-WITH SX 2015 unable to ambulated since , weakness ble and weak hand grasps, cold b/l ankles and feet - HEENT Hx HEENT Problems: Yes Hx Blind: Yes (left eye) - RENAL Hx Chronic Kidney Disease: Yes (UROSEPSIS MULTIPLE TIMES.CHRONIC MCCAULEY CATH. NEUROPATHIC BLADDER) - ENDOCRINE/METABOLIC Hx Endocrine Disorders: Yes Hx Diabetes Mellitus Type 2: Yes - HEMATOLOGICAL/ONCOLOGICAL Hx Blood Disorders: No Hx Cancer: No - INTEGUMENTARY Hx Dermatological Problems: Yes Other/Comment: ABDOMINAL FOLDS MASD,BILATERAL LE SKIN DRYNESS,LARGE THIN FLAKES, LIGHT BROWN SKIN DISCOLORATION,RIGHT BIG TOE WITH FLUSHED SKIN,SWELLING.STATES NAIL WAS CLIPPED AND NEVER HEALED. - MUSCULOSKELETAL/RHEUMATOLOGICAL Hx Musculoskeletal Disorders: Yes (CARPAL TUNNEL; ARTHRITIS BACK & LEGS) - GASTROINTESTINAL Hx Gastrointestinal Disorders: Yes Other/Comment: Morbid obesity, incONTINENT - GENITOURINARY/GYNECOLOGICAL Hx Genitourinary Disorders: Yes Hx Incontinence: Yes Hx Urinary Tract Infection: Yes Other/Comment: chronic Urinary catheter - PSYCHIATRIC Hx Psychophysiologic Disorder: No - SURGICAL HISTORY Hx Surgeries: Yes (SPINAL SURGERY) Hx Cardiac Catheterization: No Hx Coronary Stent: No Hx Mastectomy: No Hx Musculoskeletal Surgery: Yes (RIGHT KNEE) Hx Orthopedic Surgery: Yes (BILATERAL WRIST CARPAL TUNNEL REPAIR) - ANESTHESIA Hx Anesthesia Reactions: No Hx Malignant Hyperthermia: No Meds Allergies/Adverse Reactions: Allergies Allergy/AdvReac Type Severity Reaction Status Date / Time Penicillins Allergy Severe ANAPHYLAXIS Verified 10/20/17 08:50 Physical Exam - Constitutional Appears: No Acute Distress, Chronically Ill - Head Exam Head Exam: ATRAUMATIC, NORMOCEPHALIC - Eye Exam Additional comments: Left eye blindness - ENT Exam ENT Exam: Mucous Membranes Moist - Neck Exam Neck exam: Positive for: Normal Inspection - Respiratory Exam Respiratory Exam: Decreased Breath Sounds. absent: Rales, Rhonchi, Wheezes - Cardiovascular Exam Cardiovascular Exam: +S1, +S2. absent: Gallop, JVD, Rubs - GI/Abdominal Exam GI & Abdominal Exam: Soft. absent: Firm, Guarding, Rigid Additional comments: suprapubic tenderness - Extremities Exam Extremities exam: Positive for: pedal pulses present. Negative for: calf tenderness - Neurological Exam Neurological exam: Alert, Oriented x3 - Psychiatric Exam Psychiatric exam: Normal Affect, Normal Mood - Skin Skin Exam: Dry, Intact, Normal Color, Warm Results - Vital Signs Recent Vital Signs: Last Vital Signs Temp 98 F 12/07/17 08:10 Pulse 83 12/07/17 08:10 Resp 20 12/07/17 08:10 BP 133/94 H 12/07/17 08:10 Pulse Ox 93 L 12/07/17 08:10 - Labs Result Diagrams: 12/06/17 19:50 12/06/17 19:50 Labs: Laboratory Results - last 24 hr 12/07/17 08:09 POC Glucose (mg/dL) 217 H Assessment & Plan - Assessment and Plan (Free Text) Plan: 57yo male with history of hypertension, diabetes mellitus type 2, morbid obesity , COPD, CHF, paroxysmal atrial fibrillation on coumadin, chronic mccauley catheter placement and history of multiple episodes of urinary tract infections who presents from [facility] with c/o mccauley catheter leaking and suprapubic pain 1. Indwelling mccauley malfunction 2. UTI 3. Hypertension 4. Diabetes mellitus type 2 5. Hx of paroxysmal afib on coumadin 6. Morbid obesity 7. CHF, compensated 8. Hx of COPD -Mccauley catheter was exchanged in the ED however continues to leak, urology consulted for evaluation (Dr. Ly) -Urinalysis notable for moderate leukocyte esterase, bacteria and nitrates with history of ESBL; will start patient on Azactam pending ID recommendations -Consistent carb diet for his diabetes with insulin coverage as ordered -He is on duoneb, pulmicort and singulair for his COPD -He is on lisinopril and metoprolol for CHF and for hypertension -Cultures are pending at this time -DVT prophylaxis with heparin Patient seen and case discussed/reviewed with attending, Dr. Hess <Tirso Hess S - Last Filed: 12/07/17 21:11> Results - Vital Signs Recent Vital Signs: Last Vital Signs Temp 98.8 F 12/07/17 18:00 Pulse 75 12/07/17 18:00 Resp 20 12/07/17 18:00 BP 173/91 H 12/07/17 18:00 Pulse Ox 94 L 12/07/17 18:00 - Labs Result Diagrams: 12/07/17 18:13 12/06/17 19:50 Labs: Laboratory Results - last 24 hr 12/07/17 12/07/17 12/07/17 08:09 11:34 12:20 WBC RBC Hgb Hct MCV MCH MCHC RDW Plt Count MPV PT 25.1 H INR 2.15 H POC Glucose (mg/dL) 217 H 265 H Urine Color Urine Appearance Urine pH Ur Specific [place] Urine Protein Urine Glucose (UA) Urine Ketones Urine Blood Urine Nitrate Urine Bilirubin Urine Urobilinogen Ur Leukocyte Esterase Urine RBC Urine WBC Urine Bacteria 12/07/17 12/07/1712/07/18 16:11 17:00 18:13 WBC 13.2 H RBC 5.78 Hgb 15.7 Hct 47.1 MCV 81.5 MCH 27.2 MCHC 33.3 RDW 14.7 H Plt Count 243 MPV 11.0 PT INR POC Glucose (mg/dL) 307 H Urine Color Yellow Urine Appearance Turbid Urine pH 5.5 Ur Specific [place] 1.025 Urine Protein 30 H Urine Glucose (UA) >=1000 Urine Ketones Negative Urine Blood Large H Urine Nitrate Positive H Urine Bilirubin Negative Urine Urobilinogen 0.2 Ur Leukocyte Esterase Small H Urine RBC 15 - 20 Urine WBC Tntc Urine Bacteria Few Assessment & Plan - Assessment and Plan (Free Text) Plan: Pt seen and examined. I have reviewed the note of the medical records analyst and agree with it. I have discussed the assessment and plan with the resident. I have reviewed the patient's labs and medications. His mccauley was changed. Urologist cleared pt for discharge. No pain. [facility] Most likely not a UTI as mccauley was changed.
[2017-12-07 12:47] LABS: INR 2.15 (0.93-1.08); PROTHROMBIN TIME 25.1 SECONDS (9.4-12.5)
[2017-12-07] MEDS: Albuterol-Ipratrop 3 mg / 0.5 (3 ml) UD IH SCH ×2 (13:19→19:41)
[2017-12-07] MEDS ORDERED: Aztreonam 1 Gm in NS 100mL 100 ML IVPB SCH (14:00)
[2017-12-07] MEDS ORDERED: Meropenem IV 1 gm in NS 50 ML IVPB SCH (16:56)
[2017-12-07 17:25] VITALS: BP 173/91; PULSE 75
[2017-12-07 18:02] LABS: PH,URINE 5.5 (4.7-8.0); URINE BILIRUBIN NEGATIVE (NEGATIVE); URINE BLOOD LARGE (NEGATIVE); URINE GLUCOSE (UA) >=1000 mg/dL (NEGATIVE); URINE LEUKOCYTE ESTERASE SMALL Leu/uL (NEGATIVE); URINE PROTEIN 30 mg/dL (<30 mg/dL); URINE UROBILINOGEN 0.2 E.U./dL (<1 E.U./dL)
[2017-12-07 18:04] LABS: URINE APPEARANCE TURBID (CLEAR); URINE COLOR YELLOW (YELLOW)
[2017-12-07 18:06] LABS: URINE BACTERIA FEW (NEG); URINE RBC 15 - 20 /hpf (0-2); URINE WBC TNTC /hpf (0-6)
[2017-12-07 18:28] LABS: HEMOGLOBIN 15.7 g/dL (14.0-18.0); MEAN CELL VOLUME 81.5 fl (80.0-105.0); MEAN CORPUSCULAR HEMOGLOBIN 27.2 pg (25.0-35.0); MEAN CORPUSCULAR HGB CONC 33.3 g/dl (31.0-37.0); RBC 5.78 10^6/uL (3.5-6.1); RED CELL DISTRIBUTION WIDTH 14.7 % (11.5-14.5); WHITE BLOOD COUNT 13.2 10^3/ul (4.5-11.0)
[2017-12-07 19:31] VITALS: TEMP 98.8; O2SAT 94
[2017-12-07] MEDS ORDERED: Budesonide 0.5 mg/2 ml Inhal Susp UD IH SCH (20:00)
[2017-12-07] MEDS ORDERED: MELATONIN 3 MG PO SCH (22:00)
[2017-12-07] MEDS ORDERED: Insulin Detemir 100 units/ml Vial (Levemir) SC SCH (22:00)
--- NOTE | 2017-12-08 03:36 | CON ---
DATE: 12/07/2017 LOCATION: The patient is seen in bed 364, bed 2 earlier today. CHIEF COMPLAINT: leaking urinary and questionable dysuria. 00:22HISTORY OF PRESENT ILLNESS: This is a 57-year-old with super morbid obesity, BMI of 55; diabetes; hypertension; chronic Ceron catheter; atrial fibrillation; chronic obstructive lung disease; laminectomy in 2014; allergy to penicillin; who was admitted now with a leaking Ceron catheter. He states that he had some pain with the Ceron catheter also. He denies any fevers, any chills. No nausea or vomiting. REVIEW OF SYSTEMS: Reveals a 12-point review of systems is performed. No abdominal pain, diarrhea or constipation. PAST MEDICAL HISTORY: Significant for diabetes; hypertension; super morbid obesity, BMI of 55; chronic Ceron catheter; atrial fibrillation; chronic obstructive lung disease. PAST SURGICAL HISTORY: Significant for laminectomy in 2014. ALLERGIES: THE PATIENT IS ALLERGIC TO PENICILLIN. MEDICATIONS AT HOME: Reveals Coumadin, Singulair, Lopressor, melatonin, Zestril, insulin. PHYSICAL EXAMINATION: GENERAL: The patient is in bed, answering questions. VITAL SIGNS: Temperature of 98, blood pressure is 130/90, respiratory rate of 20, heart rate of 71. HEENT: Examination of HEENT is unremarkable. NECK: Supple. LUNGS: Have decreased breath sounds. HEART: Normal S1 and S2. ABDOMEN: Soft, nontender. LABORATORY DATA: Laboratory examination reveals the patient's urinalysis is significant for too numerous to count wbc's and bacteria. Ceron catheter was changed. The patient has a history of ESBL E. coli. The patient's white count is reported to be 13,800, hemoglobin of 16, platelets of 232. Chemistries reveals the creatinine is normal, glucose is elevated. Urinalysis is noted. Repeat urinalysis shows too numerous to count wbc's, bacteria. History and physical examination is reviewed. ER chart is reviewed. ASSESSMENT AND PLAN: This is a 57-year-old male with super morbid obesity with body mass index of 53, chronic, Ceron catheter, atrial fibrillation, chronic obstructive lung disease, diabetes, hypertension. Admitted with leukocytosis, malfunctioning Ceron catheter, significant urinalysis, history of extended-spectrum beta-lactamase Escherichia coli. #1 is symptomatic urinary tract infection with leukocytosis. We will treat with meropenem 1 g IV every 8, 5 days. Waiting for blood culture, urine culture and empirically start meropenem with a history of extended-spectrum beta-lactamase. Noam Madden MD [facility] # [id number]
== END 2017-12-07 21:33 ==
LOC: ED 17:04 → INTOOBSV 21:15 → ERH 21:15 → 3RNO 12-07 02:53
PROVIDERS: ADMIT Internal Medicine; ATTEND Internal Medicine
DX: T83.511A Infection and inflammatory reaction due to indwelling urethral catheter, initial encounter (principal); T83.031A Leakage of indwelling urethral catheter, initial encounter; Y84.6 Urinary catheterization as the cause of abnormal reaction of the patient, or of later complication, without mention of misadventure at the time of the procedure; J44.9 Chronic obstructive pulmonary disease, unspecified; I48.0 Paroxysmal atrial fibrillation; I50.9 Heart failure, unspecified; I11.0 Hypertensive heart disease with heart failure; E11.22 Type 2 diabetes mellitus with diabetic chronic kidney disease; N39.0 Urinary tract infection, site not specified; E66.01 Morbid (severe) obesity due to excess calories; Z68.43 Body mass index [BMI] 50.0-59.9, adult; Z79.01 Long term (current) use of anticoagulants; Z87.891 Personal history of nicotine dependence; Z88.0 Allergy status to penicillin
CPT/HCPCS: 36415; 80053; 81001; 82948; 85025; 85027; 85610; 87040; 87086; 87181; 94640; 94760; 96365; 96367; 96372; 99285; G0378; J1644; J2185; J2270; J7030

== ENCOUNTER 2018-02-01 18:46 | Inpatient (IN) | payer MEDICARE, MEDICAID ==
[2018-02-01 18:46] VITALS: PULSE 90
[2018-02-01 18:48] VITALS: BMI 55.3
[2018-02-01] MEDS ORDERED: Morphine 4 mg/ml ISec IVP STA (19:51)
--- NOTE | 2018-02-01 19:59 | ED PDOC ---
Arrival/HPI - General Chief Complaint: Male Genitourinary Time Seen by Provider: 02/01/18 19:11 Historian: Patient - History of Present Illness Narrative History of Present Illness (Text): 02/01/18 19:47 A 57 year old male, whose past medical history includes diabetes type 2 and indwelling mccauley catheter, presents to the emergency department complaining of lower abdominal pain and blood in mccauley catheter. Patient reports pain is severe and feels as though bladder is full. Patient denies palpitations, fever, flank pain, or any other complaints at this time. PMD: Dr. Frazier Urologist: Dr. Ly Past Medical History - Provider Review Nursing Documentation Reviewed: Yes - Past History Past History: No Previous - Infectious Disease Hx of Infectious Diseases: None - Cardiac Hx Pacemaker: No - Pulmonary Hx Respiratory Disorders: Yes (USED TO SMOKE CIGARETTES 1 PK LASTS 3 WEEKS.) Hx Asthma: Yes Hx Chronic Obstructive Pulmonary Disease (COPD): Yes - Neurological Hx Paralysis: Yes - HEENT Hx HEENT Disorder: Yes Hx Blind: Yes (left eye) - Renal Hx Renal Disorder: Yes (UROSEPSIS MULTIPLE TIMES. MCCAULEY CATH. NEUROPATHIC BLADDER) - Endocrine/Metabolic Hx Endocrine Disorders: Yes Hx Diabetes Mellitus Type 2: Yes - Hematological/Oncological Hx Cancer: No - Integumentary Hx Dermatological Disorder: Yes Other/Comment: ABDOMINAL FOLDS MASD,BILATERAL LE SKIN DRYNESS,LARGE THIN FLAKES, LIGHT BROWN SKIN DISCOLORATION,RIGHT BIG TOE WITH FLUSHED SKIN,SWELLING.STATES NAIL WAS CLIPPED AND NEVER HEALED. - Musculoskeletal/Rheumatological Hx Musculoskeletal Disorders: Yes (CARPAL TUNNEL; ARTHRITIS BACK & LEGS) - Gastrointestinal Hx Gastrointestinal Disorders: Yes Other/Comment: Morbid obesity, incONTINENT - Genitourinary/Gynecological Hx Genitourinary Disorders: Yes Hx Incontinence: Yes Hx Urinary Tract Infection: Yes Other/Comment: chronic Urinary catheter - Psychiatric Hx Psychophysiologic Disorder: No Hx Substance Use: No - Surgical History Hx Mastectomy: No - Anesthesia Hx Anesthesia: Yes Hx Anesthesia Reactions: No Hx Malignant Hyperthermia: No - Suicidal Assessment Feels Threatened In Home Enviroment: No Family/Social History - Physician Review Nursing Documentation Reviewed: Yes Family/Social History: No Known Family HX Smoking Status: Former Smoker Hx Alcohol Use: Yes (OCCASIONALLY) Hx Substance Use: No Hx Substance Use Treatment: No Allergies/Home Meds Allergies/Adverse Reactions: Allergies Penicillins Allergy (Severe, Verified 02/01/18 19:11) ANAPHYLAXIS Home Medications: Home Meds Medication Instructions Recorded Confirmed Aspirin [Ecotrin] 81 mg PO DAILY 07/10/17 02/01/18 Insulin Detemir [Levemir] 10 units SC HS 07/10/17 02/01/18 Warfarin [Coumadin] 6 mg PO DAILY 07/10/17 02/01/18 Cholecalciferol (Vitamin D3) 50,000 unit PO SUN 09/12/17 02/01/18 [Vitamin D3] Melatonin 3 mg PO HS 09/12/17 02/01/18 Acetaminophen [Non-Aspirin Pain 2 tab PO PRN PRN 10/20/17 02/01/18 Relief] Metoprolol Tartrate [Lopressor] 25 mg PO BID 10/20/17 02/01/18 Insulin Glargine,Hum.rec.anlog 10 unit SC HS 02/01/18 02/01/18 [Basaglar Kwikpen U-100] Magnesium Hydroxide [Milk Of 30 ml PO HS PRN 02/01/18 02/01/18 Magnesia] Review of Systems - Physician Review All systems were reviewed & negative as marked: Yes - Review of Systems Constitutional: absent: Fevers Cardiovascular: absent: Palpitations Gastrointestinal: Abdominal Pain (lower region) Musculoskeletal: absent: Back Pain (no flank pain) Physical Exam - Physical Exam Narrative Physical Exam (Text): Gen: VS reviewed, alert, well developed, well nourished, nontoxic, mild distress. ENT: normal pharynx Eye: EOMI, PERRL Neck: no JVD, supple, no adenopathy CV: regular rate, tachycardic, no rubs, no murmur, no gallops, S1, S2, pulses equal and strong Pulm: no distress, clear to auscultation, no wheeze, no rhonchi, breath sounds equal, no rales Abd: mild to moderate lower abdominal tenderness, no guarding, no rebound, no rigidity, normal bowel sounds Ext: lower extremity bilateral edema Skin: good color, no rash, no cyanosis Psych: responds appropriately to questions, normal affect Neuro: oriented x 3, CN2-12 intact grossly, motor intact, sensation intact Genitourinary: mccauley catheter in place with dry blood in the tubing Vital Signs Reviewed: Yes Vital Signs Temp Pulse Resp BP Pulse Ox 02/01/18 23:37 98.5 F 123 H 18 130/84 94 L 02/01/18 22:28 98.5 F 125 H 20 158/97 H 93 L 02/01/18 19:43 125 H 22 154/110 H 94 L 02/01/18 19:01 98.4 F 120 H 20 131/105 H 95 Temperature: Afebrile Blood Pressure: Normal Pulse: Regular Respiratory Rate: Normal Appearance: Positive for: Well-Appearing, Non-Toxic, Comfortable Pain Distress: None Mental Status: Positive for: Alert and Oriented X 3 Finger Stick Blood Glucose: 352 Medical Decision Making ED Course and Treatment: 02/01/18 19:50 Impression: 57 year old male with lower abdominal pain and blood in mccauley catheter. Physical exam shows mild to moderate lower abdominal tenderness; heart regular rate, however is tachycardic; mccauley catheter in place with dry blood in the tubing; bilateral lower extremity edema. Plan: -- EKG -- Chest X-ray -- Labs -- Venous Blood Gas -- Morphine -- Urine Culture -- Urinalysis -- Reassess and disposition Prior Visits: Notes and results from previous visits were reviewed. Patient was last seen here in the emergency department on 12/06/2017 for leaking at the site mccauley catheter. Patient was admitted. Progress Notes: 02/01/18 23:05 admit accepted by , patient to be admitted for clot hematuria with retention, suprapubic catheter that was in place was removed and replaced with 18g three way catheter hooked to CBI. patient has been comfortable, hematuria has cleared and continued. consult to dr. bro and dr. ly. - Lab Interpretations Lab Results: 02/01/18 20:05 02/01/18 20:05 Lab Results 02/01/18 20:50: Blood Type A POSITIVE, Antibody Screen Negative, BBK History Checked Patient has bt 02/01/18 20:10: pO2 42, VBG pH 7.36, VBG pCO2 46.0, VBG HCO3 26.0, VBG Total CO2 27.4, VBG O2 Sat (Calc) 87.9 H, VBG Base Excess 0.1, VBG Potassium 4.7, Glucose 455 H* D, Lactate 2.6 H, FiO2 21.0, Sodium 136.0, Chloride 95.0 L, Venous Blood Potassium 4.7 02/01/18 20:05: Sodium 136, Potassium 4.5, Chloride 99, Carbon Dioxide 24, Anion Gap 18, BUN 17, Creatinine 1.1, Est GFR ( Amer) > 60, Est GFR (Non- Af Amer) > 60, Random Glucose 446 H* D, Calcium 9.2, Total Bilirubin 0.7, AST 27 , ALT 26, Alkaline Phosphatase 107, NT-Pro-B Natriuret Pep 458 H, Total Protein 7.9, Albumin 4.0, Globulin 3.9, Albumin/Globulin Ratio 1.0 L 02/01/18 20:05: PT 26.4 H, INR 2.28, APTT 41.0 H 02/01/18 20:05: WBC 29.7 H* D, RBC 6.85 H, Hgb 18.9 H* D, Hct 54.5 H, MCV 79.6 L , MCH 27.6, MCHC 34.7, RDW 14.0, Plt Count 267, MPV 11.3 H, Gran % 87.8 H, Lymph % (Auto) 5.6 L, Granite % (Auto) 6.3 H, Eos % (Auto) 0.2 L, Baso % (Auto) 0.1 , Gran # 26.99 H, Lymph # (Auto) 1.7, Granite # (Auto) 1.9 H, Eos # (Auto) 0.1, Baso # (Auto) 0.02 02/01/18 19:36: POC Glucose (mg/dL) 352 H - RAD Interpretation Radiology Orders: 02/01/18 19:50 CHEST PORTABLE [RAD] Stat - EKG Interpretation EKG Interpretation (Text): 02/01/18 23:09 4: sinus tach at 126 bpm, nml qrs, nml axis, nonspecific lateral t wave abn Interpreted by ED Physician: Yes - Medication Orders Current Medication Orders: Acetaminophen (Tylenol 325mg Tab) 650 mg PO Q6H PRN PRN Reason: Pain, Mild (1-3) Last Admin: 02/02/18 18:29 Dose: 650 mg MAR Pain/Vitals Document 02/02/18 18:29 (Rec: 02/02/18 18:29 [id number]) Pain Reassessment Is This A Pain ReAssessment? Yes Presence of Pain Presence of Pain Yes Pain Scale Used Pain Scale Used Numeric Location Left, Right or Bilateral Right Pain Location Body Site Knee Albuterol/Ipratropium (Duoneb 3 Mg/0.5 Mg (3 Ml) Ud) 3 ml IH [id number] [facility] Last Admin: 02/02/18 21:00 Dose: 3 ml Aspirin (Ecotrin) 81 mg PO DAILY [facility] Last Admin: 02/02/18 09:00 Dose: 81 mg Budesonide (Pulmicort Respules) 0.5 mg IH [id number] [facility] Last Admin: 02/02/18 21:00 Dose: 0.5 mg Famotidine (Pepcid) 20 mg PO [facility] Last Admin: 02/02/18 22:06 Dose: 20 mg Sodium Chloride (Sodium Chloride 0.9%) 1,000 mls @ 100 mls/hr IV .Q10H [facility] Last Admin: 02/02/18 22:06 Dose: 100 mls/hr eMAR Start Stop Document 02/02/18 22:06 LOPEMAR (Rec: 02/02/18 22:06 LOPEMAR [id number]) Intravenous Solution Start Date 02/02/18 Start Time 22:06 Aztreonam (Azactam 1 Gm) 100 mls @ 100 mls/hr IVPB Q8 [facility] PRN Reason: Protocol Last Admin: 02/02/18 22:22 Dose: 100 mls/hr eMAR Start Stop Document 02/02/18 22:22 LOPEMAR (Rec: 02/02/18 22:23 LOPEMAR [id number]) Intravenous Solution Start Date 02/02/18 Start Time 22:23 Insulin Detemir (Levemir) 10 unit SC [facility] Last Admin: 02/02/18 22:06 Dose: 10 units MAR Blood Glucose Document 02/02/18 22:06 LOPEMAR (Rec: 02/02/18 22:07 LOPEMAR [id number]) Blood Glucose Finger Stick Blood Glucose (70-120) 255 Subcutaneous Administrations Document 02/02/18 22:06 LOPEMAR (Rec: 02/02/18 22:07 LOPEMAR [id number]) Injection Site MAR Injection Site Left Gluteus Clifford Charges for Administration # of Subcutaneous Administrations 1 Insulin Human Regular (Humulin R High) 0 units SC ACHS [facility] PRN Reason: Protocol Last Admin: 02/02/18 22:29 Dose: Not Given Non-Admin Reason: Blood Sugar Parameter MAR Blood Glucose Document 02/02/18 22:29 LOPEMAR (Rec: 02/02/18 22:29 LOPEMAR [id number]) Blood Glucose Finger Stick Blood Glucose (70-120) 255 Levalbuterol HCl (Xopenex) 1.25 mg IH [id number] PRN PRN Reason: Shortness of Breath Lisinopril (Zestril) 20 mg PO BID [facility] Last Admin: 02/02/18 17:45 Dose: 20 mg [facility] Pulse and Blood Pressure Document 02/02/18 17:45 VM (Rec: 02/02/18 17:45 [id number]) Pulse Pulse Rate (60-90) 81 Blood Pressure Blood Pressure (100/60-150/90) 148/73 Magnesium Hydroxide (Milk Of Magnesia) 30 ml PO PRN PRN Reason: Constipation Metoprolol Tartrate (Lopressor) 25 mg PO BID [facility] Last Admin: 02/02/18 17:45 Dose: 25 mg [facility] Pulse and Blood Pressure Document 02/02/18 17:45 VM (Rec: 02/02/18 17:[address] [id number] Pulse Pulse Rate (60-90) 81 Blood Pressure Blood Pressure (100/60-150/90) 148/73 Montelukast Sodium (Singulair) 10 mg PO [facility] Last Admin: 02/02/18 22:06 Dose: 10 mg Non-Formulary Medication (Cholecalciferol (Vitamin D3) [Vitamin D3]) 50,000 unit PO SUN [facility] Melatonin [Melatonin (] 3 Mg (Home Med)) 3 mg PO [facility] Last Admin: 02/02/18 22:30 Dose: Warfarin Sodium (Coumadin) 6 mg PO DAILY [facility] PRN Reason: Protocol Last Admin: 02/02/18 09:08 Dose: 6 mg Discontinued Medications Aztreonam (Azactam 1 Gm) 100 mls @ 100 mls/hr IVPB STAT STA PRN Reason: Protocol Stop: 02/01/18 21:50 Last Admin: 02/01/18 21:03 Dose: 100 mls/hr eMAR Start Stop Document 02/01/18 21:03 RG (Rec: 02/01/18 21:03 RG [id number]) Intravenous Solution Start Date 02/01/18 Start Time 21:03 Aztreonam (Azactam 2 Gm) 100 mls @ 100 mls/hr IVPB Q8 [facility] PRN Reason: Protocol Stop: 02/02/18 14:59 Last Admin: 02/02/18 13:06 Dose: 100 mls/hr eMAR Start Stop Document 02/02/18 13:06 (Rec: 02/02/18 13:06 [id number]) Intravenous Solution Start Date 02/02/18 Start Time 13:06 End Date 02/02/18 End time 14:06 Total Infusion Time 60 Insulin Human Regular (Humulin R) 10 units IVP STAT STA Stop: 02/01/18 20:52 Last Admin: 02/01/18 21:00 Dose: 10 u MAR Blood Glucose Document 02/01/18 21:00 RG (Rec: 02/01/18 21:02 RG [id number]) Blood Glucose Finger Stick Blood Glucose (70-120) 352 IVP Administration Document 02/01/18 21:00 RG (Rec: 02/01/18 21:02 RG [id number]) Charges for Administration # of IVP Administrations 1 Insulin Human Regular (Humulin R Low) 0 units SC ACHS [facility] PRN Reason: Protocol Insulin Human Regular (Humulin R Low) 0 units SC ACHS [facility] PRN Reason: Protocol Last Admin: 02/02/18 02:13 Dose: 4 unit MAR Blood Glucose Document 02/02/18 02:13 IVY (Rec: 02/02/18 02:13 IVY [id number]) Blood Glucose Finger Stick Blood Glucose (70-120) 442 Subcutaneous Administrations Document 02/02/18 02:13 IVY (Rec: 02/02/18 02:13 IVY [id number]) Charges for Administration # of Subcutaneous Administrations 1 Insulin Human Regular (Humulin R High) 0 units SC ACHS ONE PRN Reason: Protocol Stop: 02/02/18 03:14 Insulin Human Regular (Humulin R High) 0 units SC STAT STA PRN Reason: Protocol Stop: 02/02/18 03:24 Insulin Human Regular (Humulin R High) 15 units SC STAT STA PRN Reason: Protocol Stop: 02/02/18 03:26 Last Admin: 02/02/18 03:36 Dose: 15 unit MAR Blood Glucose Document 02/02/18 03:36 BK (Rec: 02/02/18 03:36 BK [id number]) Blood Glucose Finger Stick Blood Glucose (70-120) 462 Subcutaneous Administrations Document 02/02/18 03:36 BK (Rec: 02/02/18 03:36 BK [id number]) Charges for Administration # of Subcutaneous Administrations 1 Morphine Sulfate (Morphine) 6 mg IVP STAT STA Stop: 02/01/18 19:52 Last Admin: 02/01/18 20:11 Dose: 6 mg MAR Pain Assessment Document 02/01/18 20:11 RG (Rec: 02/01/18 20:12 RG [id number]) Pain Reassessment Is this a pain reassessment? Yes IVP Administration Document 02/01/18 20:11 RG (Rec: 02/01/18 20:12 RG [id number]) Charges for Administration # of IVP Administrations 1 - Scribe Statement The provider has reviewed the documentation as recorded by the Francois Cool Provider Scribe Provider Scribe Attestation: All medical record entries made by the Scribe were at my direction and personally dictated by me. I have reviewed the chart and agree that the record accurately reflects my personal performance of the history, physical exam, medical decision making, and the department course for this patient. I have also personally directed, reviewed, and agree with the discharge instructions and disposition. Disposition/Present on Arrival - Present on Arrival Any Indicators Present on Arrival: No History of DVT/PE: No History of Uncontrolled Diabetes: Yes Urinary Catheter: Yes History of Decub. Ulcer: No History Surgical Site Infection Following: None - Disposition Have Diagnosis and Disposition been Completed?: Yes Diagnosis: Sepsis, Hematuria Disposition: HOSPITALIZED Disposition Time: 23:08 Patient Plan: Admission Patient Problems: Current Active Problems Problem Status Onset Hematuria Acute Sepsis Acute Condition: STABLE
[2018-02-01 20:15] LABS: VENOUS BLOOD GAS BASE EXCESS 0.1 mmol/L (0.0-2.0); VENOUS BLOOD GAS PO2 42 mm/Hg (30-55); VENOUS BLOOD PH 7.36 (7.32-7.43)
[2018-02-01 20:26] LABS: BASO # 0.02 K/mm3 (0.0-2.0); BASO % 0.1 % (0.0-3.0); EOS # 0.1 (0.0-0.7); EOS % 0.2 % (1.5-5.0); GRAN # 26.99 (1.4-6.5); GRAN % 87.8 % (50.0-68.0); LYMPH # 1.7 (1.2-3.4); LYMPH % 5.6 % (22.0-35.0); MEAN CELL VOLUME 79.6 fl (80.0-105.0); MEAN CORPUSCULAR HEMOGLOBIN 27.6 pg (25.0-35.0); MEAN CORPUSCULAR HGB CONC 34.7 g/dl (31.0-37.0); MEAN PLATELET VOLUME 11.3 fl (7.0-11.0); MONO # 1.9 (0.1-0.6); MONO % 6.3 % (1.0-6.0); RBC 6.85 10^6/uL (3.5-6.1)
[2018-02-01 20:27] LABS: HEMOGLOBIN 18.9 g/dL (14.0-18.0)
[2018-02-01 20:28] LABS: INR 2.28; PROTHROMBIN TIME 26.4 SECONDS (9.4-12.5)
[2018-02-01 20:29] LABS: WHITE BLOOD COUNT 29.7 10^3/ul (4.5-11.0)
[2018-02-01] MEDS: Sodium Chloride 0.9% 1,000 ML IV SCH (20:46)
[2018-02-01 20:48] LABS: B-TYPE NATRIURETIC PEPTIDE 458 pg/mL (0-450)
[2018-02-01 20:49] LABS: ALT/SGPT 26 U/L (7-56); AST/SGOT 27 U/L (17-59); BLOOD UREA NITROGEN 17 mg/dL (7-21); CALCIUM 9.2 mg/dL (8.4-10.5); GFR NON-AFRICAN AMERICAN > 60
[2018-02-01] MEDS ORDERED: Insulin Regular 1 UNITS/0.01 ML ML IVP STA (20:51)
[2018-02-01] MEDS ORDERED: Aztreonam 1 Gm in NS 100mL 100 ML IVPB STA (20:51)
[2018-02-01 23:33] LABS: VENOUS BLOOD GAS BASE EXCESS -1.1 mmol/L (0.0-2.0); VENOUS BLOOD GAS PO2 72 mm/Hg (30-55); VENOUS BLOOD PH 7.35 (7.32-7.43)
[2018-02-02] MEDS ORDERED: Levalbuterol 1.25 MG/3 ML Inhal Soln UD IH PRN (00:25)
[2018-02-02] MEDS ORDERED: Magnesium Hydroxide Susp 30 ml UD PO PRN (00:25)
[2018-02-02] MEDS: Albuterol-Ipratrop 3 mg / 0.5 (3 ml) UD IH SCH ×4 (02:00→21:00)
[2018-02-02] MEDS ORDERED: Insulin Reg-LOW-Coverage SC SCH ×2 (02:15→07:30)
[2018-02-02] MEDS ORDERED: Insulin Reg-HIGH-Coverage SC ONE (03:13)
[2018-02-02] MEDS ORDERED: Insulin Reg-HIGH-Coverage SC STA ×2 (03:23→03:25)
[2018-02-02] MEDS: Aztreonam 2 Gm in NS 100mL 100 ML IVPB SCH ×2 (05:12→13:06)
[2018-02-02 07:41] LABS: URINE BILIRUBIN NEGATIVE (NEGATIVE); URINE BLOOD LARGE (NEGATIVE); URINE GLUCOSE (UA) >=1000 mg/dL (NEGATIVE); URINE LEUKOCYTE ESTERASE MODERATE Leu/uL (NEGATIVE); URINE PROTEIN NEGATIVE mg/dL (<30 mg/dL); URINE UROBILINOGEN 0.2 E.U./dL (<1 E.U./dL)
[2018-02-02 07:50] LABS: URINE APPEARANCE CLEAR (CLEAR); URINE COLOR YELLOW (YELLOW)
[2018-02-02 08:07] LABS: URINE AMORPHOUS SEDIMENT FEW; URINE BACTERIA MANY (NEG); URINE EPITHELIAL CELLS 0 - 2 /hpf (0-5); URINE RBC 25 - 30 /hpf (0-2); URINE WBC 20 - 25 /hpf (0-6)
[2018-02-02] MEDS: Budesonide 0.5 mg/2 ml Inhal Susp UD IH SCH ×2 (08:26→21:00)
[2018-02-02] MEDS: Insulin Reg-HIGH-Coverage SC SCH ×4 (08:30→22:29)
--- NOTE | 2018-02-02 09:19 | RAD ---
Date of service: 02/01/2018 HISTORY: chf COMPARISON: 10/22/2017 FINDINGS: LUNGS: No active pulmonary disease. PLEURA: No significant pleural effusion identified, no pneumothorax apparent. CARDIOVASCULAR: Normal. OSSEOUS STRUCTURES: No significant abnormalities. VISUALIZED UPPER ABDOMEN: Normal. OTHER FINDINGS: None. IMPRESSION: No active disease.
--- NOTE | 2018-02-02 09:46 | CARD ---
APPROVED REPORT Date of service: 02/01/2018 EKG Measurement Heart [id number] <Conclusion> Sinus tachycardia Possible Left atrial enlargement PRWP ST and T wave abnormality, new
[2018-02-02] MEDS ORDERED: Insulin Detemir 100 units/ml Vial (Levemir) SC SCH (10:00)
--- NOTE | 2018-02-02 10:27 | PCM.URO ---
Urology Progress Note - Objective Lab Studies: Reviewed (gu plans: cystoscopy next week if urine remains clear , from gu standpoint pt can be managed as an out pt) Lab Results Last 24 Hours: Laboratory Results - last 24 hr 02/01/18 02/01/18 02/02/18 23:15 23:25 01:34 pO2 72 H VBG pH 7.35 VBG pCO2 45.0 VBG HCO3 24.8 VBG Total CO2 26.2 VBG O2 Sat (Calc) 96.7 H VBG Base Excess -1.1 L VBG Potassium 4.5 Sodium 134.0 Chloride 97.0 L Glucose 458 H* Lactate 2.8 H FiO2 21.0 POC Glucose (mg/dL) 423 H* 442 H* Venous Blood Potassium 4.5 Urine Color Urine Appearance Urine pH Ur Specific [place] Urine Protein Urine Glucose (UA) Urine Ketones Urine Blood Urine Nitrate Urine Bilirubin Urine Urobilinogen Ur Leukocyte Esterase Urine RBC Urine WBC Ur Epithelial Cells Amorphous Sediment Urine Bacteria 02/02/18 02/02/18 02/02/18 02:54 05:14 07:19 pO2 VBG pH VBG pCO2 VBG HCO3 VBG Total CO2 VBG O2 Sat (Calc) VBG Base Excess VBG Potassium Sodium Chloride Glucose Lactate FiO2 POC Glucose (mg/dL) 462 H* 445 H* 392 H Venous Blood Potassium Urine Color Urine Appearance Urine pH Ur Specific [place] Urine Protein Urine Glucose (UA) Urine Ketones Urine Blood Urine Nitrate Urine Bilirubin Urine Urobilinogen Ur Leukocyte Esterase Urine RBC Urine WBC Ur Epithelial Cells Amorphous Sediment Urine Bacteria 02/02/18 07:30 pO2 VBG pH VBG pCO2 VBG HCO3 VBG Total CO2 VBG O2 Sat (Calc) VBG Base Excess VBG Potassium Sodium Chloride Glucose Lactate FiO2 POC Glucose (mg/dL) Venous Blood Potassium Urine Color Yellow Urine Appearance Clear Urine pH 6.0 Ur Specific [place] 1.010 Urine Protein Negative Urine Glucose (UA) >=1000 Urine Ketones Negative Urine Blood Large H Urine Nitrate Negative Urine Bilirubin Negative Urine Urobilinogen 0.2 Ur Leukocyte Esterase Moderate H Urine RBC 25 - 30 Urine WBC 20 - 25 Ur Epithelial Cells 0 - 2 Amorphous Sediment Few Urine Bacteria Many Intake & Output: Intake & Output 02/01/18 02/02/18 02/02/18 18:59 06:59 18:59 Intake Total 8015 Output Total 9000 Balance -985 Weight 392 lb Intake: IV 600 Left Hand 600 Oral 540 Other 6875 Output: Urine 9000 3-way Urethral 9000 Other: Voiding Method 3-way Ceron with CBI Vital Signs: Vital Signs - 24 hr 02/01/18 02/02/18 02/02/18 23:37 03:52 06:00 Temperature 98.5 F 97.8 F 98.0 F Pulse Rate 123 H 113 H 97 H Respiratory 18 20 20 Rate Blood Pressure 130/84 121/85 130/90 O2 Sat by Pulse 94 L 96 Oximetry 02/02/18 02/02/18 09:01 09:07 Temperature Pulse Rate 98 H 98 H Respiratory Rate Blood Pressure 132/79 132/79 O2 Sat by Pulse Oximetry
[2018-02-02] MEDS: Sodium Chloride 0.9% 1,000 ML IV SCH ×2 (11:10→22:06)
--- NOTE | 2018-02-02 14:41 | CP.PCM.CON ---
History of Present Illness - History of Present Illness History of Present Illness: Infectious Disease Consultation: February 02, 2018 57 yo male with morbid obesity sent [place] [facility] for pain around catheter site and blood in the urine. The patient states abdominal pain and subjective fevers and chills. Urinalysis suggestive of UTI. The patient also has leukocytosis of 29.7. Urine cultures pending. On prior hospitalizations, the patient had Enterococcus and E. coli. PCN allergies. PMHx: Congestive Heart Failure, Chronic Obstructive Pulmonary Disease, Morbid Obesity , Benign Neoplasm of Spine, Paraplegia, history of multiple UTIs, left eye blindness. PSHx: Laminectomy 03/2015, Catheter placement 02/2015 Allergies: PCN - facial rash and lip swelling. Social Hx: no tobacco, EtOH, or illicit drug use. [place] resident Active Medications Acetaminophen (Tylenol 325mg Tab) 2 mg PO PRN PRN PRN Reason: Pain, Mild (1-3) Albuterol/Ipratropium (Duoneb 3 Mg/0.5 Mg (3 Ml) Ud) 3 ml IH [id number] [facility] Last Admin: 02/02/18 13:48 Dose: 3 ml Aspirin (Ecotrin) 81 mg PO DAILY [facility] Last Admin: 02/02/18 09:00 Dose: 81 mg Budesonide (Pulmicort Respules) 0.5 mg IH [id number] [facility] Last Admin: 02/02/18 08:26 Dose: 0.5 mg Famotidine (Pepcid) 20 mg PO HS [facility] Sodium Chloride (Sodium Chloride 0.9%) 1,000 mls @ 100 mls/hr IV .Q10H [facility] Last Admin: 02/02/18 11:10 Dose: 100 mls/hr Aztreonam (Azactam 1 Gm) 100 mls @ 100 mls/hr IVPB Q8 [facility] PRN Reason: Protocol Insulin Detemir (Levemir) 10 unit SC HS [facility] Insulin Human Regular (Humulin R High) 0 units SC ACHS [facility] PRN Reason: Protocol Last Admin: 02/02/18 12:45 Dose: 12 u Levalbuterol HCl (Xopenex) 1.25 mg IH [id number] PRN PRN Reason: Shortness of Breath Lisinopril (Zestril) 20 mg PO BID [facility] Last Admin: 02/02/18 09:01 Dose: 20 mg Magnesium Hydroxide (Milk Of Magnesia) 30 ml PO HS PRN PRN Reason: Constipation Metoprolol Tartrate (Lopressor) 25 mg PO BID [facility] Last Admin: 02/02/18 09:07 Dose: 25 mg Montelukast Sodium (Singulair) 10 mg PO HS [facility] Non-Formulary Medication (Cholecalciferol (Vitamin D3) [Vitamin D3]) 50,000 unit PO SUN [facility] Melatonin [Melatonin (] 3 Mg (Home Med)) 3 mg PO HS [facility] Warfarin Sodium (Coumadin) 6 mg PO DAILY [facility] PRN Reason: Protocol Last Admin: 02/02/18 09:08 Dose: 6 mg Family Hx: none given ROS: No nausea, vomiting, diarrhea, headaches, dizziness, chest pain, melena, hematuria, hematemesis, hematochezia, depression, anxiety, vision loss, hearing loss, loss of consciousness, chest pain. Complains of subjective fevers, chills, and abdominal pain. Past Patient History - Infectious Disease Hx of Infectious Diseases: None - Past Medical History & Family History Past Medical History?: Yes - Past Social History Smoking Status: Former Smoker - CARDIAC Hx Cardiac Disorders: Yes Hx Congestive Heart Failure: Yes Hx Hypercholesterolemia: Yes Hx Hypertension: Yes - PULMONARY Hx Respiratory Disorders: Yes Hx Asthma: Yes Hx Chronic Obstructive Pulmonary Disease (COPD): Yes - NEUROLOGICAL Hx Neurological Disorder: No - HEENT Hx HEENT Problems: No - RENAL Hx Chronic Kidney Disease: No - ENDOCRINE/METABOLIC Hx Endocrine Disorders: Yes Hx Diabetes Mellitus Type 2: Yes - HEMATOLOGICAL/ONCOLOGICAL Hx Blood Disorders: No - INTEGUMENTARY Hx Dermatological Problems: No - MUSCULOSKELETAL/RHEUMATOLOGICAL Hx Musculoskeletal Disorders: Yes Hx Arthritis: Yes Hx Back Pain: Yes Hx Falls: No - GASTROINTESTINAL Hx Gastrointestinal Disorders: No - GENITOURINARY/GYNECOLOGICAL Hx Genitourinary Disorders: Yes - PSYCHIATRIC Hx Psychophysiologic Disorder: No Hx Substance Use: No - SURGICAL HISTORY Hx Surgeries: Yes Other/Comment: spinal sx - ANESTHESIA Hx Anesthesia: Yes Hx Anesthesia Reactions: No Hx Malignant Hyperthermia: No Meds Allergies/Adverse Reactions: Allergies Allergy/AdvReac Type Severity Reaction Status Date / Time Penicillins Allergy Severe ANAPHYLAXIS Verified 02/01/18 19:11 - Medications Medications: Current Medications Acetaminophen (Tylenol 325mg Tab) 2 mg PO PRN PRN PRN Reason: Pain, Mild (1-3) Albuterol/Ipratropium (Duoneb 3 Mg/0.5 Mg (3 Ml) Ud) 3 ml IH [id number] [facility] Last Admin: 02/02/18 13:48 Dose: 3 ml Aspirin (Ecotrin) 81 mg PO DAILY [facility] Last Admin: 02/02/18 09:00 Dose: 81 mg Budesonide (Pulmicort Respules) 0.5 mg IH [id number] [facility] Last Admin: 02/02/18 08:26 Dose: 0.5 mg Famotidine (Pepcid) 20 mg PO HS [facility] Sodium Chloride (Sodium Chloride 0.9%) 1,000 mls @ 100 mls/hr IV .Q10H [facility] Last Admin: 02/02/18 11:10 Dose: 100 mls/hr Aztreonam (Azactam 1 Gm) 100 mls @ 100 mls/hr IVPB Q8 [facility] PRN Reason: Protocol Insulin Detemir (Levemir) 10 unit SC HS [facility] Insulin Human Regular (Humulin R High) 0 units SC ACHS [facility] PRN Reason: Protocol Last Admin: 02/02/18 12:45 Dose: 12 u Levalbuterol HCl (Xopenex) 1.25 mg IH [id number] PRN PRN Reason: Shortness of Breath Lisinopril (Zestril) 20 mg PO BID [facility] Last Admin: 02/02/18 09:01 Dose: 20 mg Magnesium Hydroxide (Milk Of Magnesia) 30 ml PO HS PRN PRN Reason: Constipation Metoprolol Tartrate (Lopressor) 25 mg PO BID [facility] Last Admin: 02/02/18 09:07 Dose: 25 mg Montelukast Sodium (Singulair) 10 mg PO [facility] Non-Formulary Medication (Cholecalciferol (Vitamin D3) [Vitamin D3]) 50,000 unit PO SUN [facility] Melatonin [Melatonin (] 3 Mg (Home Med)) 3 mg PO [facility] Warfarin Sodium (Coumadin) 6 mg PO DAILY [facility] PRN Reason: Protocol Last Admin: 02/02/18 09:08 Dose: 6 mg Physical Exam - Constitutional Appears: Non-toxic, Chronically Ill Additional comments: Obesity - Head Exam Head Exam: ATRAUMATIC, NORMOCEPHALIC - Eye Exam Eye Exam: EOMI, PERRL Pupil Exam: NORMAL ACCOMODATION, PERRL - ENT Exam ENT Exam: Mucous Membranes Moist, Normal External Ear Exam, TM's Normal Bilaterally - Neck Exam Neck exam: Positive for: Full Rom, Normal Inspection - Respiratory Exam Respiratory Exam: Clear to Auscultation Bilateral, NORMAL BREATHING PATTERN. absent: Rales, Rhonchi, Wheezes - Cardiovascular Exam Cardiovascular Exam: REGULAR RHYTHM, RRR, +S1, +S2 - GI/Abdominal Exam GI & Abdominal Exam: Normal Bowel Sounds, Soft. absent: Distended, Tenderness - Extremities Exam Extremities exam: Negative for: joint swelling, pedal edema - Neurological Exam Neurological exam: Alert, CN II-XII Intact, Oriented x3 - Psychiatric Exam Psychiatric exam: Normal Affect, Normal Mood - Skin Skin Exam: Intact, Normal Color Results - Vital Signs Recent Vital Signs: Last Vital Signs Temp 97.8 F 02/02/18 12:00 Pulse 78 02/02/18 12:00 Resp 18 02/02/18 12:00 BP 135/88 02/02/18 12:00 Pulse Ox 96 02/02/18 06:00 - Labs Result Diagrams: 02/01/18 20:05 02/01/18 20:05 Labs: Laboratory Results - last 24 hr 02/01/18 02/01/18 02/02/18 23:15 23:25 01:34 pO2 72 H VBG pH 7.35 VBG pCO2 45.0 VBG HCO3 24.8 VBG Total CO2 26.2 VBG O2 Sat (Calc) 96.7 H VBG Base Excess -1.1 L VBG Potassium 4.5 Sodium 134.0 Chloride 97.0 L Glucose 458 H* Lactate 2.8 H FiO2 21.0 POC Glucose (mg/dL) 423 H* 442 H* Venous Blood Potassium 4.5 Urine Color Urine Appearance Urine pH Ur Specific [place] Urine Protein Urine Glucose (UA) Urine Ketones Urine Blood Urine Nitrate Urine Bilirubin Urine Urobilinogen Ur Leukocyte Esterase Urine RBC Urine WBC Ur Epithelial Cells Amorphous Sediment Urine Bacteria 02/02/18 02/02/18 02/02/18 02:54 05:14 07:19 pO2 VBG pH VBG pCO2 VBG HCO3 VBG Total CO2 VBG O2 Sat (Calc) VBG Base Excess VBG Potassium Sodium Chloride Glucose Lactate FiO2 POC Glucose (mg/dL) 462 H* 445 H* 392 H Venous Blood Potassium Urine Color Urine Appearance Urine pH Ur Specific [place] Urine Protein Urine Glucose (UA) Urine Ketones Urine Blood Urine Nitrate Urine Bilirubin Urine Urobilinogen Ur Leukocyte Esterase Urine RBC Urine WBC Ur Epithelial Cells Amorphous Sediment Urine Bacteria 02/02/18 02/02/18 07:30 11:37 pO2 VBG pH VBG pCO2 VBG HCO3 VBG Total CO2 VBG O2 Sat (Calc) VBG Base Excess VBG Potassium Sodium Chloride Glucose Lactate FiO2 POC Glucose (mg/dL) 381 H Venous Blood Potassium Urine Color Yellow Urine Appearance Clear Urine pH 6.0 Ur Specific [place] 1.010 Urine Protein Negative Urine Glucose (UA) >=1000 Urine Ketones Negative Urine Blood Large H Urine Nitrate Negative Urine Bilirubin Negative Urine Urobilinogen 0.2 Ur Leukocyte Esterase Moderate H Urine RBC 25 - 30 Urine WBC 20 - 25 Ur Epithelial Cells 0 - 2 Amorphous Sediment Few Urine Bacteria Many Assessment & Plan - Assessment and Plan (Free Text) Assessment: The patient with groin pain and blood in the urine. The patient with PCN allergy. Started patient on Aztreonam. Supportive care. Urine cultures pending. Leukocytosis. Monitor WBC. Thank you for allowing me to participate in the care of this patient, we will follow with you.
[2018-02-02] MEDS: Insulin Detemir 100 units/ml Vial (Levemir) SC SCH (22:06)
[2018-02-02] MEDS: Aztreonam 1 Gm in NS 100mL 100 ML IVPB SCH (22:22)
[2018-02-02] MEDS: MELATONIN 3 MG PO SCH (22:30)
--- NOTE | 2018-02-03 00:07 | HP ---
02/02/18 Copied To: Thalia Frazier MD Attending MD: Thalia Frazier MD CHIEF COMPLAINTS: Pain in the perineal area and blood in the urine. HISTORY OF PRESENT ILLNESS: Mr. Marcus Valdvoinos, 57-year-old male, who has past medical history of diabetes mellitus type 2, indwelling Ceron catheter, obesity. Came to the emergency room complaining of lower abdominal pain and blood in the Ceron catheter. The patient reports that pain is severe and feels as though bladder is full. The patient denies palpitation, fever, back pain, chills. The patient is feeling shortness of breath also. The patient is bedridden. PAST MEDICAL HISTORY: As above, history of asthma, COPD, obstructive sleep apnea syndrome, history of paralysis, left eye blindness, urosepsis multiple time, history of penectomy, diabetes mellitus type 2, carpal tunnel syndrome, urine incontinent, has chronic urinary indwelling catheter. FAMILY HISTORY: Father and mother, noncontributory. HABITS: Has history of smoking. No alcohol. No substance abuse. ALLERGIES: THE PATIENT IS ALLERGIC WITH PENICILLIN. HOME MEDICATIONS: Aspirin, insulin, Coumadin, multivitamin, melatonin, acetaminophen, Lopressor, insulin. REVIEW OF SYSTEMS: The patient is seen and examined on the bedside, looking comfortable. At this moment, no fever. No chills. No headache. No dizziness. No palpitation. Still complaining lower abdominal pain. PHYSICAL EXAMINATION: VITAL SIGNS: Temperature 98.5, pulse 125, respiratory rate 20, blood pressure 158/97. HEENT: Head normocephalic, atraumatic. Eyes PERRLA. Extraocular muscles intact. Conjunctivae clear. Nose patent. Mucous membrane moist. NECK: Supple. No carotid bruit. No JVD or thyromegaly. CHEST: Bilaterally symmetrical. HEART: S1 and S2 positive. LUNGS: Clear to auscultation. ABDOMEN: Soft. Bowel sounds positive. No organomegaly. EXTREMITIES: No edema. No cyanosis. NEUROLOGICAL: The patient is awake and alert. Follows simple commands. EXTREMITIES: No edema. No cyanosis. LABORATORY DATA: White blood cells 29.7, hemoglobin 18.9, hematocrit 54.5, platelets 267. Glucose 284, 381. Sodium 136, potassium 4.5, BUN 17, creatinine 1.1, BNP 458. ASSESSMENT AND PLAN: Mr. Marcus Valdovinos, 57-year-old male with leukocytosis, polycythemia, looks like dehydrated, hemoconcentration, glucose 442, BNP 458, hematuria. Came with urinary obstruction. Ceron was changed, irrigation was done. Seen by Dr. Ankit Ly. Removed clots. The patient has history of congestive heart failure, chronic obstructive pulmonary disease, morbid obesity, benign neoplasm of the spine, paraplegia, penectomy, history of multiple urinary tract infections, left eye blindness. Seen by Infectious Disease and Urology. Repeat labs. We will follow up. Thalia Frazier MD MTDD
[2018-02-03] MEDS: Albuterol-Ipratrop 3 mg / 0.5 (3 ml) UD IH SCH ×4 (02:35→20:08)
[2018-02-03 07:27] LABS: HEMOGLOBIN 14.2 g/dL (14.0-18.0); MEAN CELL VOLUME 82.6 fl (80.0-105.0); MEAN CORPUSCULAR HEMOGLOBIN 26.6 pg (25.0-35.0); MEAN CORPUSCULAR HGB CONC 32.2 g/dl (31.0-37.0); MEAN PLATELET VOLUME 10.9 fl (7.0-11.0); RBC 5.34 10^6/uL (3.5-6.1); RED CELL DISTRIBUTION WIDTH 14.6 % (11.5-14.5); WHITE BLOOD COUNT 12.3 10^3/ul (4.5-11.0)
[2018-02-03 07:49] LABS: IRON 53 ug/dL (45-180)
[2018-02-03] MEDS: Budesonide 0.5 mg/2 ml Inhal Susp UD IH SCH ×2 (07:49→20:08)
[2018-02-03 07:50] LABS: BLOOD UREA NITROGEN 24 mg/dL (7-21); GFR NON-AFRICAN AMERICAN > 60
[2018-02-03 07:51] LABS: ALBUMIN 3.2 g/dL (3.0-4.8); ALT/SGPT 17 U/L (7-56); AST/SGOT 12 U/L (17-59); CALCIUM 8.5 mg/dL (8.4-10.5); HDL CHOLESTEROL 27 mg/dL (29-60)
[2018-02-03 07:54] LABS: LDL CHOLESTEROL 120 mg/dL (0-129)
[2018-02-03 07:56] LABS: TOTAL IRON BINDING CAPACITY 225 ug/dL (261-462)
[2018-02-03] MEDS: Insulin Reg-HIGH-Coverage SC SCH ×4 (07:57→21:47)
[2018-02-03 07:58] LABS: % IRON SATURATION 23 % (20-55)
[2018-02-03 11:40] LABS: FOLATE 9.4 ng/mL
[2018-02-03] MEDS: Aztreonam 1 Gm in NS 100mL 100 ML IVPB SCH ×2 (13:36→21:45)
--- NOTE | 2018-02-03 16:22 | CON ---
Copied To: Yosef Dunbar MD Attending MD: Yosef Dunbar MD DATE: 02/03/2018 PULMONARY CONSULT REFERRING PHYSICIAN: Thalia Frazier MD. REASON FOR CONSULT: Chronic lung disease, may have sleep apnea syndrome, mild cough. HISTORY OF PRESENT ILLNESS: This is a 57-year-old gentleman, known to me from previous admission, morbidly obese, paraplegia, history of spinal tumor removed in the remote past, diabetes, left eye blindness, has an indwelling catheter with recurrent urosepsis. Does not have a penis, just has a stoma. Comes in with pelvic pain with obstructive uropathy, apparently has some hematuria. Seen by Urology. Ceron catheter was changed, irrigation had been done. Some of the clots were removed. Presently, feels better. Also yesterday morning had some episode of vomiting. Has some cough related to it at present. No nausea. No abdominal pain. No dysuria. Has a decubitus ulcer. PAST MEDICAL HISTORY: As per history of present illness. ALLERGIES: TO PENICILLIN. SOCIAL HISTORY: Nonsmoker, nondrinker. FAMILY HISTORY: No significant cardiopulmonary disease reported. MEDICATIONS: He is on Azactam 1 g IV every 8 hours, getting vitamin D3 of 50,000 units weekly, Coumadin is 6 mg daily, DuoNeb every 6 hours, Ecotrin 81 mg daily, insulin coverage, Levemir 10 units subcu at bedtime, metoprolol tartrate 25 mg twice a day, melatonin 3 mg at bedtime, Pepcid 20 mg at bedtime, Pulmicort inhaled twice a day, Singulair 10 mg daily, Tylenol p.r.n., Xopenex inhaled every 6 hours p.r.n., Zestril 20 mg twice a day. REVIEW OF SYSTEMS: No headache. No rhinitis. Mild cough, short of breath with exertion. Admits to have snoring, daytime sleepy and tired. No chest pain. No abdominal pain. Had a pelvic discomfort, which is better since the change of Ceron catheter. Not much leg swelling. Has a decubitus ulcer. PHYSICAL EXAMINATION: GENERAL: No acute distress. VITAL SIGNS: Temp is 98, heart rate is 83, respiratory rate is 20, blood pressure 127/73, pulse ox 98% on nasal cannula. HEENT: Moist mucous membranes. Crowded airway. Mallampati score is 4. NECK: Short thick neck. LUNGS: Have a fair airflow with rhonchi. HEART: S1 and S2. ABDOMEN: Soft, nontender, nondistended. Has some inguinal area from the rash. EXTREMITIES: Not much edema. NEUROLOGICAL: Awake and alert. Follows simple command. LABORATORY DATA: Shows hemoglobin 14.2, hematocrit 44.1, WBC 12.3, platelet count is 192. INR 2 days ago 2.28, PTT 41. VBG on admission showed pH 7.35, pCO2 is 45, O2 is 72. Sodium 135, potassium 4.4, chloride 98, bicarbonate 29, BUN 24, creatinine 0.9, glucose 263, calcium is 8.5, iron is 53, AST 12, ALT 17, alk phos is 72, albumin 3.2, cholesterol 181, TSH 0.78. Urinalysis shows wbc 20-25. Microbiology: Urine culture has gram-negative rods. Had a chest x-ray done on admission, which shows no infiltrate or effusion. IMPRESSION AND PLAN: Obstructive uropathy with probably bladder bleeding probably secondary to chronic indwelling catheter, also on anticoagulation though. Seen by Urology. Irrigation of bladder is being done. Presently had a clear urine in the Ceron. 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 I agree with the present management. Continue antibiotics until the sensitivity organism is back. We will place him on continuous positive airway pressure 8 cm with 30% oxygen while sleeping. Continue nebulizer treatment. Infectious diseases and urology followup. Thank you and we will follow with you. Yosef Dunbar MD
--- NOTE | 2018-02-03 16:27 | CP.PCM.PN ---
Subjective - Date & Time of Evaluation Date of Evaluation: 02/03/18 Time of Evaluation: 14:00 - Subjective Subjective: Infectious Disease Follow Up: February 03, 2018 57 yo male with morbid obesity sent [place] [facility] for pain around catheter site and blood in the urine. The patient states abdominal pain and subjective fevers and chills. Urinalysis suggestive of UTI. The patient also has leukocytosis of 29.7. WBC down to 12.3 now. Urine cultures pending. On prior hospitalizations, the patient had Enterococcus and E. coli. PCN allergies. Objective - Vital Signs/Intake and Output Vital Signs (last 24 hours): Temp Pulse Resp BP Pulse Ox 97.8 F 74 20 127/73 98 02/03/18 12:00 02/03/18 14:00 02/03/18 12:00 02/03/18 12:00 02/03/18 06:00 Intake and Output: 02/03/18 02/03/18 06:59 18:59 Intake Total 2100 Output Total 24167 Balance -8150 - Medications Medications: Current Medications Acetaminophen (Tylenol 325mg Tab) 650 mg PO Q6H PRN PRN Reason: Pain, Mild (1-3) Last Admin: 02/02/18 18:29 Dose: 650 mg Albuterol/Ipratropium (Duoneb 3 Mg/0.5 Mg (3 Ml) Ud) [id number] [facility] Last Admin: 02/03/18 14:23 Dose: 3 ml Aspirin (Ecotrin) [address] [facility] Last Admin: 02/03/18 09:56 Dose: 81 mg Budesonide (Pulmicort Respules) 0.[id number] [facility] Last Admin: 02/03/18 07:49 Dose: 0.5 mg Famotidine (Pepcid) [address] [facility] Last Admin: 02/02/18 22:06 Dose: 20 mg Aztreonam (Azactam 1 Gm) 100 mls @ 100 mls/hr IVPB Q8 [facility] PRN Reason: Protocol Last Admin: 02/03/18 13:36 Dose: 100 mls/hr Insulin Detemir (Levemir) [address] [facility] Last Admin: 02/02/18 22:06 Dose: 10 units Insulin Human Regular (Humulin R High) [address] [facility] PRN Reason: Protocol Last Admin: 02/03/18 12:16 Dose: 7 u Levalbuterol HCl (Xopenex) 1.25 mg IH [id number] PRN PRN Reason: Shortness of Breath Lisinopril (Zestril) [address] [facility] Last Admin: 02/03/18 09:59 Dose: 20 mg Magnesium Hydroxide (Milk Of Magnesia) 30 ml PO HS PRN PRN Reason: Constipation Metoprolol Tartrate (Lopressor) [address] [facility] Last Admin: 02/03/18 09:56 Dose: 25 mg Montelukast Sodium (Singulair) [address] [facility] Last Admin: 02/02/18 22:06 Dose: 10 mg Non-Formulary Medication (Cholecalciferol (Vitamin D3) [Vitamin D3]) 50,[address] [facility] Melatonin [Melatonin (] 3 Mg (Home Med)) 3 mg PO [facility] Last Admin: 02/02/18 22:30 Dose: Not Given Warfarin Sodium (Coumadin) [address] [facility] PRN Reason: Protocol Last Admin: 02/03/18 09:56 Dose: 6 mg - Labs Labs: 02/03/18 06:30 02/03/18 06:30 PT 26.4 SECONDS (9.4-12.5) H 02/01/18 20:05 INR 2.28 02/01/18 20:05 APTT 41.0 Seconds (25.1-36.5) H 02/01/18 20:05 - Constitutional Appears: Non-toxic, No Acute Distress, Chronically Ill - Head Exam Head Exam: ATRAUMATIC, NORMOCEPHALIC - Eye Exam Eye Exam: EOMI, PERRL Pupil Exam: NORMAL ACCOMODATION, PERRL - ENT Exam ENT Exam: Mucous Membranes Moist, Normal External Ear Exam, TM's Normal Bilaterally - Neck Exam Neck Exam: Full ROM, Normal Inspection - Respiratory Exam Respiratory Exam: Clear to Ausculation Bilateral, NORMAL BREATHING PATTERN. absent: Rales, Rhonchi, Wheezes - Cardiovascular Exam Cardiovascular Exam: REGULAR RHYTHM, RRR, +S1, +S2 - GI/Abdominal Exam GI & Abdominal Exam: Soft, Normal Bowel Sounds. absent: Distended, Tenderness - Extremities Exam Extremities Exam: Full ROM, Normal Inspection - Neurological Exam Neurological Exam: Alert, Awake, CN II-XII Intact, Oriented x3 - Psychiatric Exam Psychiatric exam: Normal Affect, Normal Mood - Skin Skin Exam: Intact, Normal Color Assessment and Plan - Assessment and Plan (Free Text) Assessment: The patient with groin pain and blood in the urine. The patient with PCN allergy. Started patient on Aztreonam. Supportive care. Urine cultures pending but showing gram negative rods. Leukocytosis that has downtrended significantly. Monitor WBC. Awaiting identification and sensitivities from urine cultures. Thank you for allowing me to participate in the care of this patient, we will follow with you.
[2018-02-03] MEDS: Insulin Detemir 100 units/ml Vial (Levemir) SC SCH (21:46)
[2018-02-03] MEDS: MELATONIN 3 MG PO SCH (22:32)
[2018-02-04] MEDS: Albuterol-Ipratrop 3 mg / 0.5 (3 ml) UD IH SCH ×4 (01:27→20:20)
[2018-02-04] MEDS: Budesonide 0.5 mg/2 ml Inhal Susp UD IH SCH ×2 (08:24→20:20)
[2018-02-04 08:36] LABS: INR 2.41; PROTHROMBIN TIME 28.2 SECONDS (9.4-12.5)
[2018-02-04] MEDS: Insulin Reg-HIGH-Coverage SC SCH ×4 (08:36→23:07)
[2018-02-04] MEDS ORDERED: Non Formulary Medication (Cholecalciferol (Vitamin D3) [Vitamin D3] 50,000 UNIT) PO SCH (10:00)
[2018-02-04] MEDS: Aztreonam 1 Gm in NS 100mL 100 ML IVPB SCH ×2 (13:00→21:46)
--- NOTE | 2018-02-04 16:29 | CP.PCM.PN ---
Subjective - Date & Time of Evaluation Date of Evaluation: 02/04/18 Time of Evaluation: 15:15 - Subjective Subjective: Infectious Disease Follow Up: February 04, 2018 57 yo male with morbid obesity sent to [facility] from [facility] for pain around catheter site and blood in the urine. The patient states abdominal pain and subjective fevers and chills. Urinalysis suggestive of UTI. The patient also has leukocytosis of 29.7. WBC down to 12.3 now. Urine cultures pending. On prior hospitalizations, the patient had Enterococcus and E. coli. PCN allergies. ESBL+ E. Coli on urine cultures now. Objective - Vital Signs/Intake and Output Vital Signs (last 24 hours): Temp Pulse Resp BP Pulse Ox 97.9 F 74 20 143/83 99 02/04/18 12:00 02/04/18 14:00 02/04/18 12:00 02/04/18 12:00 02/04/18 06:00 Intake and Output: 02/04/18 02/04/18 06:59 18:59 Intake Total 1900 Output Total 2600 Balance -700 - Medications Medications: Current Medications Acetaminophen (Tylenol 325mg Tab) 650 mg PO Q6H PRN PRN Reason: Pain, Mild (1-3) Last Admin: 02/04/18 13:00 Dose: 650 mg Albuterol/Ipratropium (Duoneb 3 Mg/0.5 Mg (3 Ml) Ud) 3 ml IH [id number] [facility] Last Admin: 02/04/18 14:07 Dose: 3 ml Aspirin (Ecotrin) 81 mg PO DAILY [facility] Last Admin: 02/04/18 09:55 Dose: 81 mg Budesonide (Pulmicort Respules) 0.5 mg IH [id number] [facility] Last Admin: 02/04/18 08:24 Dose: 0.5 mg Famotidine (Pepcid) 20 mg PO HS [facility] Last Admin: 02/03/18 21:46 Dose: 20 mg Gentamicin Sulfate (Gentamicin) 150 mg IVPB Q8H GREG PRN Reason: Protocol Stop: 02/07/18 16:31 Aztreonam (Azactam 1 Gm) 100 mls @ 100 mls/hr IVPB Q8 GREG PRN Reason: Protocol Last Admin: 02/04/18 13:00 Dose: 100 mls/hr Insulin Detemir (Levemir) 10 unit SC [facility] Last Admin: 02/03/18 21:46 Dose: 10 units Insulin Human Regular (Humulin R High) 0 units SC [facility] PRN Reason: Protocol Last Admin: 02/04/18 12:11 Dose: 7 u Levalbuterol HCl (Xopenex) 1.25 mg IH [id number] PRN PRN Reason: Shortness of Breath Last Admin: 02/03/18 20:08 Dose: 1.25 mg Lisinopril (Zestril) 20 mg PO BID [facility] Last Admin: 02/04/18 09:54 Dose: 20 mg Magnesium Hydroxide (Milk Of Magnesia) 30 ml PO HS PRN PRN Reason: Constipation Metoprolol Tartrate (Lopressor) 25 mg PO BID [facility] Last Admin: 02/04/18 09:55 Dose: 25 mg Montelukast Sodium (Singulair) 10 mg PO [facility] Last Admin: 02/03/18 21:46 Dose: 10 mg Non-Formulary Medication (Cholecalciferol (Vitamin D3) [Vitamin D3]) 50,000 unit PO [facility] Melatonin [Melatonin (] 3 Mg (Home Med)) 3 mg PO [facility] Last Admin: 02/03/18 22:32 Dose: Not Given Warfarin Sodium (Coumadin) 6 mg PO DAILY [facility] PRN Reason: Protocol Last Admin: 02/04/18 09:55 Dose: 6 mg - Labs Labs: 02/03/18 06:30 02/03/18 06:30 PT 28.2 SECONDS (9.4-12.5) H 02/04/18 08:00 INR 2.41 02/04/18 08:00 APTT 41.0 Seconds (25.1-36.5) H 02/01/18 20:05 - Constitutional Appears: Non-toxic, No Acute Distress, Chronically Ill - Head Exam Head Exam: ATRAUMATIC, NORMOCEPHALIC - Eye Exam Eye Exam: EOMI, PERRL Pupil Exam: NORMAL ACCOMODATION, PERRL - ENT Exam ENT Exam: Mucous Membranes Moist, Normal External Ear Exam, TM's Normal Bilaterally - Neck Exam Neck Exam: Full ROM, Normal Inspection - Respiratory Exam Respiratory Exam: Clear to Ausculation Bilateral, NORMAL BREATHING PATTERN. absent: Rales, Rhonchi, Wheezes - Cardiovascular Exam Cardiovascular Exam: REGULAR RHYTHM, RRR, +S1, +S2 - GI/Abdominal Exam GI & Abdominal Exam: Soft, Normal Bowel Sounds. absent: Distended, Tenderness - Extremities Exam Extremities Exam: Full ROM, Normal Inspection - Neurological Exam Neurological Exam: Alert, Awake, CN II-XII Intact, Oriented x3 - Psychiatric Exam Psychiatric exam: Normal Affect, Normal Mood - Skin Skin Exam: Intact, Normal Color Assessment and Plan - Assessment and Plan (Free Text) Assessment: The patient with groin pain and blood in the urine. The patient with PCN allergy. Started patient on Aztreonam. Supportive care. Urine cultures pending but showing gram negative rods. Leukocytosis that has downtrended significantly. Monitor WBC. Awaiting identification and sensitivities from urine cultures. ESBL+ E. coli from urine cultures. Add Gentamicin 150mg IV q8hrs for 3 days of treatment. Thank you for allowing me to participate in the care of this patient, we will follow with you.
[2018-02-04] MEDS ORDERED: Gentamicin 80 mg/2mL Inj. IVPB SCH (16:30)
[2018-02-04] MEDS: Insulin Detemir 100 units/ml Vial (Levemir) SC SCH (21:45)
[2018-02-04] MEDS: MELATONIN 3 MG PO SCH (22:30)
--- NOTE | 2018-02-04 23:22 | PN ---
Copied To: Yosef Dunbar MD Attending MD: Yosef Dunbar MD DATE: 02/04/2018 PULMONARY PROGRESS NOTE REFERRING PHYSICIAN: Thalia Frazier MD SUBJECTIVE: The patient is lying in the bed. Night was unremarkable. Feels okay. Mild nausea. Also, complaining some constipation. Pelvic pain is better. Has a clear urine. OBJECTIVE: GENERAL: In no acute distress. VITAL SIGNS: Temperature is 98, heart rate is 74, respiratory rate is 20, blood pressure 143/83, pulse ox 97% on 2 liters nasal cannula. HEENT: Moist mucous membrane. Crowded airway. Mallampati score is 4. NECK: Supple. No JVD. LUNGS: Have a fair airflow with rhonchi. HEART: S1 and S2. ABDOMEN: Soft, nontender, and nondistended. EXTREMITIES: No edema. NEUROLOGICAL: Awake and alert. Follows simple command. MEDICATIONS: He is on Azactam 1 g IV every 8 hours, vitamin D3 50,000 units weekly, Coumadin 6 mg daily, DuoNeb every 6 hours, Ecotrin 81 mg daily, gentamicin 150 mg IV daily, insulin coverage, Levemir 10 units subcu at bedtime, metoprolol tartrate 25 mg twice a day, melatonin 3 mg at bedtime, milk of magnesia p.r.n. basis, Pepcid 20 mg at bedtime, Pulmicort inhaled twice a day, Singulair 10 mg daily, Tylenol p.r.n., Xopenex inhaled every 6 hours, and Zestril 20 mg twice a day. LABORATORY DATA: Shows INR today 2.41. Microbiology has E. coli in the urine, which is ESBL. IMPRESSION AND PLAN: Recurrent urinary tract infection with extended-spectrum beta-lactamases organism. THE PATIENT IS ALLERGIC TO PENICILLIN. Gentamicin is being given the rectum. Other issue is chronic obstructive lung disease, obstructive sleep apnea syndrome, paraplegia, history of spine tumor, decubiti ulcer. We will continue bronchodilator. Keep head at 45 degrees. Stool softener. Gastric prophylaxis. Anticoagulation. Thank you and we will follow with you. Yosef Dunbar MD
[2018-02-05] MEDS: Albuterol-Ipratrop 3 mg / 0.5 (3 ml) UD IH SCH ×4 (02:00→19:55)
[2018-02-05] MEDS: Aztreonam 1 Gm in NS 100mL 100 ML IVPB SCH ×3 (05:16→22:00)
[2018-02-05] MEDS: Budesonide 0.5 mg/2 ml Inhal Susp UD IH SCH ×2 (07:24→19:55)
[2018-02-05 07:25] LABS: HEMOGLOBIN 13.3 g/dL (14.0-18.0); MEAN CELL VOLUME 81.7 fl (80.0-105.0); MEAN CORPUSCULAR HEMOGLOBIN 26.7 pg (25.0-35.0); MEAN CORPUSCULAR HGB CONC 32.7 g/dl (31.0-37.0); MEAN PLATELET VOLUME 11.1 fl (7.0-11.0); RBC 4.98 10^6/uL (3.5-6.1); RED CELL DISTRIBUTION WIDTH 14.2 % (11.5-14.5); WHITE BLOOD COUNT 8.4 10^3/ul (4.5-11.0)
[2018-02-05 08:07] LABS: BLOOD UREA NITROGEN 11 mg/dL (7-21); CALCIUM 8.5 mg/dL (8.4-10.5); GFR NON-AFRICAN AMERICAN > 60
[2018-02-05] MEDS: Insulin Reg-HIGH-Coverage SC SCH ×4 (08:14→23:38)
[2018-02-05] MEDS ORDERED: Ergocalciferol 50,000 Intl Units Cap PO ONE (12:45)
--- NOTE | 2018-02-05 15:48 | CP.PCM.PN ---
Subjective - Date & Time of Evaluation Date of Evaluation: 02/05/18 Time of Evaluation: 14:30 - Subjective Subjective: Infectious Disease Follow Up: February 05, 2018 57 yo male with morbid obesity sent to [facility] from [facility] for pain around catheter site and blood in the urine. The patient states abdominal pain and subjective fevers and chills. Urinalysis suggestive of UTI. The patient also has leukocytosis of 29.7. WBC down to 12.3 now. Urine cultures pending. On prior hospitalizations, the patient had Enterococcus and E. coli. PCN allergies. ESBL+ E. Coli on urine cultures now. Currently on Aztreonam and Gentamicin. Objective - Vital Signs/Intake and Output Vital Signs (last 24 hours): Temp Pulse Resp BP Pulse Ox 98 F 71 18 164/85 H 100 02/05/18 12:00 02/05/18 12:00 02/05/18 12:00 02/05/18 12:00 02/05/18 05:44 Intake and Output: 02/05/18 02/05/18 06:59 18:59 Intake Total 2340 Output Total 5350 Balance -3010 - Medications Medications: Current Medications Acetaminophen (Tylenol 325mg Tab) 650 mg PO Q6H PRN PRN Reason: Pain, Mild (1-3) Last Admin: 02/04/18 13:00 Dose: 650 mg Albuterol/Ipratropium (Duoneb 3 Mg/0.5 Mg (3 Ml) Ud) 3 ml IH [id number] [facility] Last Admin: 02/05/18 13:13 Dose: 3 ml Aspirin (Ecotrin) 81 mg PO DAILY [facility] Last Admin: 02/05/18 09:28 Dose: 81 mg Budesonide (Pulmicort Respules) 0.5 mg IH [id number] [facility] Last Admin: 02/05/18 07:24 Dose: 0.5 mg Ergocalciferol (Drisdol 50,000 Intl Units Cap) 1 cap PO SUN [facility] Famotidine (Pepcid) 20 mg PO [facility] Last Admin: 02/04/18 21:45 Dose: 20 mg Aztreonam (Azactam 1 Gm) 100 mls @ 100 mls/hr IVPB Q8 GREG PRN Reason: Protocol Last Admin: 02/05/18 14:42 Dose: 100 mls/hr Gentamicin Sulfate 150 mg/ (Sodium Chloride) 103.75 mls @ 100 mls/hr IVPB Q8H [facility] Last Admin: 02/05/18 12:16 Dose: 100 mls/hr Insulin Detemir (Levemir) 10 unit SC [facility] Last Admin: 02/04/18 21:45 Dose: 10 units Insulin Human Regular (Humulin R High) 0 units SC [facility] PRN Reason: Protocol Last Admin: 02/05/18 12:16 Dose: 7 u Levalbuterol HCl (Xopenex) 1.25 mg IH [id number] PRN PRN Reason: Shortness of Breath Last Admin: 02/03/18 20:08 Dose: 1.25 mg Lisinopril (Zestril) 20 mg PO BID [facility] Last Admin: 02/05/18 09:28 Dose: 20 mg Magnesium Hydroxide (Milk Of Magnesia) 30 ml PO HS PRN PRN Reason: Constipation Metoprolol Tartrate (Lopressor) 25 mg PO BID [facility] Last Admin: 02/05/18 09:28 Dose: 25 mg Montelukast Sodium (Singulair) 10 mg PO [facility] Last Admin: 02/04/18 21:45 Dose: 10 mg Melatonin [Melatonin (] 3 Mg (Home Med)) 3 mg PO [facility] Last Admin: 02/03/18 22:32 Dose: Not Given Warfarin Sodium (Coumadin) 6 mg PO DAILY [facility] PRN Reason: Protocol Last Admin: 02/05/18 09:28 Dose: 6 mg - Labs Labs: 02/05/18 06:45 02/05/18 06:45 PT 28.2 SECONDS (9.4-12.5) H 02/04/18 08:00 INR 2.41 02/04/18 08:00 APTT 41.0 Seconds (25.1-36.5) H 02/01/18 20:05 - Constitutional Appears: Non-toxic, No Acute Distress, Chronically Ill - Head Exam Head Exam: ATRAUMATIC, NORMOCEPHALIC - Eye Exam Eye Exam: EOMI, PERRL Pupil Exam: NORMAL ACCOMODATION, PERRL - ENT Exam ENT Exam: Mucous Membranes Moist, Normal External Ear Exam, TM's Normal Bilaterally - Neck Exam Neck Exam: Full ROM, Normal Inspection - Respiratory Exam Respiratory Exam: Clear to Ausculation Bilateral, NORMAL BREATHING PATTERN. absent: Rales, Rhonchi, Wheezes - Cardiovascular Exam Cardiovascular Exam: REGULAR RHYTHM, RRR, +S1, +S2 - GI/Abdominal Exam GI & Abdominal Exam: Soft, Normal Bowel Sounds. absent: Distended, Tenderness - Extremities Exam Extremities Exam: Full ROM, Normal Inspection - Neurological Exam Neurological Exam: Alert, Awake, CN II-XII Intact, Oriented x3 - Psychiatric Exam Psychiatric exam: Normal Affect, Normal Mood - Skin Skin Exam: Intact, Normal Color Assessment and Plan - Assessment and Plan (Free Text) Assessment: The patient with groin pain and blood in the urine. The patient with PCN allergy. Started patient on Aztreonam. Supportive care. Urine cultures pending but showing gram negative rods. Leukocytosis that has downtrended significantly. Monitor WBC. Awaiting identification and sensitivities from urine cultures. ESBL+ E. coli from urine cultures. Add Gentamicin 150mg IV q8hrs for 3 days of treatment. Patient feeling better. Thank you for allowing me to participate in the care of this patient, we will follow with you.
--- NOTE | 2018-02-05 21:06 | PN ---
Copied To: Yosef Dunbar MD Attending MD: Yosef Dunbar MD DATE: 02/05/2018 PULMONARY PROGRESS NOTE REFERRING PHYSICIAN: Thalia Frazier MD. SUBJECTIVE: He is lying in the bed, watching TV. Feels okay. No cough. No sputum production. No vomiting, diarrhea. No abdominal pain. Still have some pelvic area discomfort, has a decubiti ulcer. OBJECTIVE: GENERAL: In no acute distress. VITAL SIGNS: Temperature is 98, heart 65, respiratory rate is 18, blood pressure 160/82, pulse ox 97% on 2 liters nasal cannula. HEENT: Moist mucous membrane. Crowded airway. NECK: Supple. No JVD. LUNGS: Have fair airflow with rhonchi. HEART: S1 and S2. ABDOMEN: Soft, nontender, no organomegaly. EXTREMITIES: Not much edema. NEUROLOGIC: Awake and alert, follows simple command. MEDICATIONS: He is on Azactam 1 g IV every 8 hours, Coumadin 6 mg will be given, vitamin D 50,000 units weekly, DuoNeb every 6 hours [id number], Ecotrin 81 mg daily, gentamicin 150 mg every 8 hours, Levemir 10 units subcu at bedtime, metoprolol tartrate 25 mg twice a day, melatonin 3 mg at bedtime, Pepcid 20 mg at bedtime, Pulmicort inhaled twice a day, Singulair 10 mg daily, Tylenol p.r.n., Xopenex 1.25 mg every 6 hours p.r.n., Zestril 20 mg twice a day. LABORATORY DATA: Shows hemoglobin 13.3, hematocrit 40.7, WBC 8.4, platelet is 222. Sodium 137, potassium 4, chloride 98, bicarbonate 32, BUN 11, creatinine 0.6, glucose 249, calcium is 8.5. IMPRESSION AND PLAN: Recurrent urinary tract infection with extended-spectrum beta-lactamase organisms, has an indwelling catheter, on Azactam and gentamicin, chronic obstructive lung disease, obstructive sleep apnea syndrome, paraplegia secondary to spine surgery, benign tumor, decubiti ulcer, morbid obesity. Pulmonary point of view, doing okay. Keep head at 45 degrees. Bronchodilator. Gastric prophylaxis. Anticoagulation. Follow up INR in the morning. Thank you and we will follow with you. Yosef Dunbar MD [facility] # [id number]
[2018-02-05] MEDS: Insulin Detemir 100 units/ml Vial (Levemir) SC SCH (22:00)
[2018-02-05] MEDS: MELATONIN 3 MG PO SCH (22:01)
--- NOTE | 2018-02-06 00:31 | PN ---
Copied To: Thalia Frazier MD Attending MD: Thalia Frazier MD DATE: 02/05/2018 SUBJECTIVE: The patient is a 57-year-old male. The patient is seen and examined on the bedside. Looking comfortable. Pelvic pain is better. No fever. No chills. No hematuria. No hematochezia. No swelling of the legs. No chest pain. No palpitation. PHYSICAL EXAMINATION: VITAL SIGNS: Temperature 98, pulse 79, respiratory rate 18, blood pressure 164/85. HEENT: Head: Normocephalic and atraumatic. Eyes: PERRLA. Extraocular muscles intact. Conjunctivae clear. Nose patent. Mucous membrane moist. NECK: Supple. No carotid bruit. No JVD or thyromegaly. CHEST: Bilaterally symmetrical. HEART S1, S2 positive. LUNGS: Clear to auscultation. ABDOMEN: Soft. Bowel sounds present. No organomegaly. EXTREMITIES: No edema, no cyanosis. NEUROLOGIC: The patient is awake and alert. Follows simple commands. Oriented x3. MEDICATIONS: Tylenol, DuoNeb, Ecotrin, Pulmicort, vitamin D, Azactam, gentamicin, insulin, Xopenex, Zestril, milk of magnesia, Lopressor, Singulair, Coumadin. LABORATORY DATA: White blood cells 8.4, hemoglobin 13.3, hematocrit 40.7, platelets 225. Sodium 137, potassium 4, BUN 11, creatinine 0.6. Glucose 249. ASSESSMENT AND PLAN: Mr. Marcus Valdovinos is a 57-year-old male with anemia, hyperglycemia, came with groin pain, blood in the urine, started on Azactam. Urine culture is pending, but seemed gram-negative rods. Leukocytosis , urine cultures, extended-spectrum beta-lactamase plus Escherichia coli from urine cultures. Dr. Vigil added gentamicin for three days. Patient is feeling better. Patient is having history of tumor of the spine, cervical surgery long time ago. The patient is paraplegic, has chronic obstructive pulmonary disease, obstructive sleep apnea, comorbid obesity, history of decubitus ulcer. Continue bronchodilators. Gastrointestinal and deep venous thrombosis prophylaxes. Repeat labs. We will follow up. Thalia Frazier MD [facility] # [id number] MTDFátima
[2018-02-06 07:21] LABS: INR 2.6; PROTHROMBIN TIME 30.5 SECONDS (9.4-12.5)
[2018-02-06] MEDS: Budesonide 0.5 mg/2 ml Inhal Susp UD IH SCH ×2 (07:28→20:12)
[2018-02-06] MEDS: Albuterol-Ipratrop 3 mg / 0.5 (3 ml) UD IH SCH ×3 (07:28→20:13)
[2018-02-06] MEDS: Insulin Reg-HIGH-Coverage SC SCH ×4 (08:51→22:00)
--- NOTE | 2018-02-06 09:04 | PN ---
Copied To: Thalia Frazier MD Attending MD: Thalia Frazier MD DATE: 02/04/2018 SUBJECTIVE: The patient is 57 years old male. The patient is seen and examined at bedside, having breakfast. Still having pelvic area pain especially in the perineal area. No nausea, vomiting, or diarrhea. No hematuria or hematochezia. No headache, no dizziness, no chest pain, no palpitation. PHYSICAL EXAMINATION VITAL SIGNS: Temperature 98.8, pulse 80, blood pressure 132/71, and respiratory rate 20. HEENT: Head: Normocephalic, atraumatic. Eyes: PERRLA. Extraocular muscles intact. Conjunctivae clear. Nose: Patent. Mucous membranes are moist. NECK: Supple. No carotid bruits, JVD, or thyromegaly. CHEST: Bilaterally symmetrical. HEART: S1 and S2 positive. LUNGS: Clear to auscultation. ABDOMEN: Soft. Bowel sounds present. No organomegaly. EXTREMITIES: No edema. No cyanosis. NEUROLOGIC: Patient is awake, alert, following simple commands, oriented x3. MEDICATIONS: Azactam, vitamin D, Coumadin, Ecotrin, insulin, Levemir, Lopressor, magnesium, Milk of Magnesia, Pepcid. LABORATORY DATA: While blood cell is 12.3, hemoglobin 14.2, hematocrit 44.1, and platelets 192. Glucose is 252. ASSESSMENT AND PLAN: 57 years old male with leukocytosis, improved; diabetes mellitus; comorbid obesity; paraplegia; history of spinal tumor, removed in the remote past; history of accident with left eye blindness; has indwelling catheter with recurrent urosepsis. The patient has h/o accident. Continue antibiotics until sensitivity of organism is that as per Dr. Vigil. GI and DVT prophylaxes. Repeat labs. We will follow up. Thalia Frazier MD MTDD
--- NOTE | 2018-02-06 09:07 | PN ---
Copied To: Thalia Frazier MD Attending MD: Thalia Frazier MD DATE: 02/03/2018 SUBJECTIVE: Patient is 57 years old male. Patient was seen and examined on the bedside. Looking comfortable. Sometimes coughing, shortness of breath, complaining about pain in the groin area. No chest pain. No abdominal pain. Ceron catheter is changed. PHYSICAL EXAMINATION: VITAL SIGNS: Temperature 98, heart rate 83, respiratory rate 20, blood pressure 127/70, pulse oximetry 98% on nasal cannula. HEENT: Head: Normocephalic, atraumatic. Eyes: PERRLA. Extraocular muscles intact. Conjunctivae clear. Nose patent. Mucous membrane moist. NECK: Supple. No carotid bruit. No JVD or thyromegaly. CHEST: Bilaterally symmetrical. HEART: S1 and S2 positive. LUNGS: Have fair airflow with rhonchi. ABDOMEN: Soft, nontender. No organomegaly. EXTREMITIES: No edema. No cyanosis. NEUROLOGIC: Patient is awake and alert. Follows simple commands. LABORATORY DATA: Hemoglobin 14.2, hematocrit 44.1, white blood cells 12.3, platelets 192. Sodium 135, potassium 4.4, BUN 24, glucose 263, AST 12, ALT 17. MEDICATIONS: Azactam, Coumadin, Ecotrin, insulin coverage, Levemir, metoprolol, melatonin, Pepcid, Pulmicort. ASSESSMENT AND PLAN: Mr. Valdovinos is a 57-year-old male with obstructive uropathy with probably bladder bleeding, probably secondary to chronic indwelling catheter. There was obstruction with the clot, was flushed by the urologist. Seen by Dr. Ankit Ly, irrigation of the bladder was done, here with urinary tract infection, paraplegia secondary to spinal cord tumor removed in the remote past, history of accident, morbid obesity, chronic obstructive lung disease, sleep apnea syndrome. Continue antibiotics. Gastrointestinal and deep vein thrombosis prophylaxes. Repeat labs. Reviewed Dr. Dunbar's notes. Appreciated Dr. Vigil's notes also. We will follow up. Thalia Frazier MD [facility] # [id number]
--- NOTE | 2018-02-06 18:10 | CP.PCM.PN ---
Subjective - Date & Time of Evaluation Date of Evaluation: 02/06/18 Time of Evaluation: 16:45 - Subjective Subjective: Infectious Disease Follow Up: February 06, 2018 57 yo male with morbid obesity sent to [facility] from [facility] for pain around catheter site and blood in the urine. The patient states abdominal pain and subjective fevers and chills. Urinalysis suggestive of UTI. The patient also has leukocytosis of 29.7. WBC down to 12.3 now. Urine cultures pending. On prior hospitalizations, the patient had Enterococcus and E. coli. PCN allergies. ESBL+ E. Coli on urine cultures now. Currently on Gentamicin. Objective - Vital Signs/Intake and Output Vital Signs (last 24 hours): Temp Pulse Resp BP Pulse Ox 98.7 F 61 18 145/84 97 02/06/18 11:49 02/06/18 14:06 02/06/18 11:49 02/06/18 11:49 02/06/18 06:00 Intake and Output: 02/06/18 02/06/18 06:59 18:59 Intake Total 350 Output Total 1300 Balance -950 - Medications Medications: Current Medications Acetaminophen (Tylenol 325mg Tab) 650 mg PO Q6H PRN PRN Reason: Pain, Mild (1-3) Last Admin: 02/04/18 13:00 Dose: 650 mg Albuterol/Ipratropium (Duoneb 3 Mg/0.5 Mg (3 Ml) Ud) 3 ml IH [id number] [facility] Last Admin: 02/06/18 13:21 Dose: 3 ml Aspirin (Ecotrin) 81 mg PO DAILY [facility] Last Admin: 02/06/18 09:45 Dose: 81 mg Budesonide (Pulmicort Respules) 0.5 mg IH [id number] [facility] Last Admin: 02/06/18 07:28 Dose: 0.5 mg Ergocalciferol (Drisdol 50,000 Intl Units Cap) 1 cap PO [facility] Famotidine (Pepcid) 20 mg PO [facility] Last Admin: 02/05/18 22:00 Dose: 20 mg Gentamicin Sulfate 150 mg/ (Sodium Chloride) 103.75 mls @ 100 mls/hr IVPB Q8H [facility] Last Admin: 02/06/18 16:17 Dose: 100 mls/hr Insulin Detemir (Levemir) 10 unit SC HS [facility] Last Admin: 02/05/18 22:00 Dose: 10 units Insulin Human Regular (Humulin R High) 0 units SC [facility] PRN Reason: Protocol Last Admin: 02/06/18 12:06 Dose: Not Given Levalbuterol HCl (Xopenex) 1.25 mg IH [id number] PRN PRN Reason: Shortness of Breath Last Admin: 02/03/18 20:08 Dose: 1.25 mg Lisinopril (Zestril) 20 mg PO BID [facility] Last Admin: 02/06/18 09:44 Dose: 20 mg Magnesium Hydroxide (Milk Of Magnesia) 30 ml PO HS PRN PRN Reason: Constipation Metoprolol Tartrate (Lopressor) 25 mg PO BID [facility] Last Admin: 02/06/18 09:45 Dose: 25 mg Montelukast Sodium (Singulair) 10 mg PO [facility] Last Admin: 02/05/18 22:00 Dose: 10 mg Melatonin [Melatonin (] 3 Mg (Home Med)) 3 mg PO [facility] Last Admin: 02/05/18 22:01 Dose: Not Given Warfarin Sodium (Coumadin) 6 mg PO DAILY [facility] PRN Reason: Protocol Last Admin: 02/06/18 09:56 Dose: Not Given - Labs Labs: 02/05/18 06:45 02/05/18 06:45 PT 30.5 SECONDS (9.4-12.5) H 02/06/18 07:00 INR 2.60 02/06/18 07:00 APTT 41.0 Seconds (25.1-36.5) H 02/01/18 20:05 - Constitutional Appears: Non-toxic, No Acute Distress, Chronically Ill - Head Exam Head Exam: ATRAUMATIC, NORMOCEPHALIC - Eye Exam Eye Exam: EOMI, PERRL Pupil Exam: NORMAL ACCOMODATION, PERRL - ENT Exam ENT Exam: Mucous Membranes Moist, Normal External Ear Exam, TM's Normal Bilaterally - Neck Exam Neck Exam: Full ROM, Normal Inspection - Respiratory Exam Respiratory Exam: Clear to Ausculation Bilateral, NORMAL BREATHING PATTERN. absent: Rales, Rhonchi, Wheezes - Cardiovascular Exam Cardiovascular Exam: REGULAR RHYTHM, RRR, +S1, +S2 - GI/Abdominal Exam GI & Abdominal Exam: Soft, Normal Bowel Sounds. absent: Distended, Tenderness - Extremities Exam Extremities Exam: Full ROM, Normal Inspection - Neurological Exam Neurological Exam: Alert, Awake, CN II-XII Intact, Oriented x3 - Psychiatric Exam Psychiatric exam: Normal Affect, Normal Mood - Skin Skin Exam: Intact, Normal Color Assessment and Plan - Assessment and Plan (Free Text) Assessment: The patient with groin pain and blood in the urine. The patient with PCN allergy. Started patient on Aztreonam. Supportive care. Urine cultures pending but showing gram negative rods. Leukocytosis that has downtrended significantly. Monitor WBC. Awaiting identification and sensitivities from urine cultures. ESBL+ E. coli from urine cultures. Added Gentamicin 150mg IV q8hrs for 3 days of treatment. On day 2 of antibiotic treatment with Gentamicin. Patient feeling better. Still complaining of right knee soreness/pain. Thank you for allowing me to participate in the care of this patient, we will follow with you.
[2018-02-06] MEDS: Insulin Detemir 100 units/ml Vial (Levemir) SC SCH (21:50)
[2018-02-06] MEDS: MELATONIN 3 MG PO SCH (22:30)
--- NOTE | 2018-02-06 23:55 | PN ---
Copied To: Thalia Frazier MD Attending MD: Thalia Frazier MD DATE: 02/06/2018 The patient is a 57-year-old male. SUBJECTIVE: The patient is looking comfortable. No nausea, vomiting, or diarrhea. Still having pelvic pain around 3/10 as per the patient. No fever. No chills. White blood cells trending down. Tomorrow, Dr. Ly will do cystoscopy. PHYSICAL EXAMINATION: VITAL SIGNS: Temperature 98.7, pulse 61, respiratory rate 18, blood pressure 144/84, pulse oximetry 97. HEENT: Head is normocephalic and atraumatic. Eyes: PERRLA. Extraocular muscles are intact. Conjunctivae are clear. Nose is patent. Mucous membranes are moist. NECK: Supple. No carotid bruits. No JVD or thyromegaly. CHEST: Bilaterally symmetrical. HEART: S1 and S2 positive. LUNGS: Clear to auscultation. ABDOMEN: Soft. Bowel sounds positive. No organomegaly. EXTREMITIES: No edema. No cyanosis. NEUROLOGIC: The patient is awake and alert. Follow simple orders. MEDICATIONS: Tylenol, DuoNeb, Ecotrin, Pulmicort, vitamin D, Pepcid, insulin, Xopenex, Zestril, milk of magnesia, and Lopressor. LABORATORY DATA: White blood cells 8.4, hemoglobin 13.3, hematocrit 40.7, and platelets 225. Sodium 137, potassium 4, BUN 11, creatinine 0.6, and glucose 249. ASSESSMENT AND PLAN: Mr. Marcus Valdovinos is a 57-year-old male with anemia, hyperglycemia, came with urinary tract infection. Got aztreonam. Leukocytosis is trending down. Urine culture shows extended-spectrum beta-lactamase positive Escherichia coli. Added gentamicin. Going for cystoscopy tomorrow. The patient has history of multiple times urinary tract infection. Chronic obstructive lung disease, obstructive sleep apnea syndrome, paraplegia secondary to spine surgery, benign tumor, decubitus ulcer, history of accident, penectomy, morbid obesity, indwelling Ceron catheter. Gastric prophylaxis. Deep venous thrombosis prophylaxis. Getting Coumadin. Repeat labs. We will follow up. Thalia Frazier MD
[2018-02-07] MEDS: Albuterol-Ipratrop 3 mg / 0.5 (3 ml) UD IH SCH ×4 (01:09→19:13)
--- NOTE | 2018-02-07 01:31 | PN ---
Copied To: Yosef Dunbar MD Attending MD: Yosef Dunbar MD DATE: 02/06/2018 PULMONARY PROGRESS NOTE REFERRING PHYSICIAN: Thalia Frazier MD SUBJECTIVE: The patient is lying in the bed, head at 45 degrees. Night was unremarkable. No headache, no rhinitis. Short of breath with exertion. No chest pain. No abdominal pain. No leg pain or leg swelling. Urine is clear. OBJECTIVE GENERAL: In no acute distress. VITAL SIGNS: Temperature is 98, heart rate 70, respiratory rate 18, blood pressure 149/78, pulse ox 97% on nasal cannula. HEENT: Moist mucous membrane. Crowded airway. Mallampati score is 4. NECK: Supple. No JVD. LUNGS: Have a fair airflow with rhonchi. HEART: S1 and S2. ABDOMEN: Soft, nontender, no organomegaly. EXTREMITIES: Does have some edema, decubitus ulcer. NEUROLOGIC: Awake and alert. Follows simple command. MEDICATIONS: He is on Coumadin 6 mg daily basis, vitamin D 50,000 units weekly, DuoNeb every six hour [id number], Ecotrin 81 mg daily, gentamicin 150 mg every 8 hour, insulin coverage, Levemir 10 units subcu at bedtime, metoprolol tartrate 25 mg twice a day, milk of magnesia 30 mL at bedtime p.r.n., Pepcid 20 mg at bedtime, Pulmicort inhaled twice a day, Singulair 10 mg at bedtime, Tylenol p.r.n., Xopenex inhaled every 6 hours p.r.n., Zestril 20 mg twice a day. LABORATORY DATA: Shows INR today 2.6. Blood sugar is 211. Urine culture has ESBL E-coli. 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 Continue antibiotics as per Infectious Diseases. Keep head at 45 degrees. Encourage CPAP use. Avoid sedation. Gastric prophylaxis, anticoagulation. Thank you and we will follow with you. Yosef Dunbar MD [facility] # [id number]
[2018-02-07 07:04] LABS: BASO # 0.01 K/mm3 (0.0-2.0); BASO % 0.1 % (0.0-3.0); EOS # 0.3 (0.0-0.7); EOS % 3.4 % (1.5-5.0); GRAN # 7.14 (1.4-6.5); GRAN % 74.3 % (50.0-68.0); HEMOGLOBIN 13.4 g/dL (14.0-18.0); LYMPH # 1.4 (1.2-3.4); LYMPH % 14.4 % (22.0-35.0); MEAN CELL VOLUME 82.5 fl (80.0-105.0); MEAN CORPUSCULAR HEMOGLOBIN 26.9 pg (25.0-35.0); MEAN CORPUSCULAR HGB CONC 32.6 g/dl (31.0-37.0); MEAN PLATELET VOLUME 11.2 fl (7.0-11.0); MONO # 0.8 (0.1-0.6); MONO % 7.8 % (1.0-6.0); RBC 4.98 10^6/uL (3.5-6.1); RED CELL DISTRIBUTION WIDTH 14.2 % (11.5-14.5); WHITE BLOOD COUNT 9.6 10^3/ul (4.5-11.0)
[2018-02-07 07:10] LABS: INR 2.46; PARTIAL THROMBOPLASTIN TIME 39.1 Seconds (25.1-36.5); PROTHROMBIN TIME 28.8 SECONDS (9.4-12.5)
[2018-02-07 07:22] LABS: ALBUMIN 3.1 g/dL (3.0-4.8); ALT/SGPT 39 U/L (7-56); AST/SGOT 27 U/L (17-59); BLOOD UREA NITROGEN 11 mg/dL (7-21); CALCIUM 8.4 mg/dL (8.4-10.5); GFR NON-AFRICAN AMERICAN > 60; URIC ACID 2.4 mg/dL (3.5-8.5)
[2018-02-07] MEDS: Budesonide 0.5 mg/2 ml Inhal Susp UD IH SCH ×2 (07:23→19:13)
[2018-02-07] MEDS: Insulin Reg-HIGH-Coverage SC SCH ×4 (07:30→21:31)
--- NOTE | 2018-02-07 10:14 | RAD ---
Date of service: 02/06/2018 PROCEDURE: Right Knee Radiographs. HISTORY: pain COMPARISON: None. FINDINGS: BONES: Normal. No fracture. JOINTS: Normal. No osteoarthritis. JOINT EFFUSION: None. OTHER FINDINGS: None. IMPRESSION: No acute findings
--- NOTE | 2018-02-07 15:20 | CP.PCM.PN ---
Subjective - Date & Time of Evaluation Date of Evaluation: 02/07/18 Time of Evaluation: 14:15 - Subjective Subjective: Infectious Disease Follow Up: February 07, 2018 57 yo male with morbid obesity [place] [facility] [place] [facility] for pain around catheter site and blood in the urine. The patient states abdominal pain and subjective fevers and chills. Urinalysis suggestive of UTI. The patient also has leukocytosis of 29.7. WBC down to 9.6 now. Urine cultures pending. On prior hospitalizations, the patient had Enterococcus and E. coli. PCN allergies. ESBL+ E. Coli on urine cultures now. Currently on Gentamicin. Taken to cystoscopy today. Objective - Vital Signs/Intake and Output Vital Signs (last 24 hours): Temp Pulse Resp BP Pulse Ox 98.0 F 65 15 164/82 H 97 02/07/18 11:30 02/07/18 11:30 02/07/18 11:30 02/07/18 11:30 02/07/18 11:30 Intake and Output: 02/07/18 02/07/18 06:59 18:59 Intake Total 100 Output Total 1000 Balance -900 - Medications Medications: Current Medications Acetaminophen (Tylenol 325mg Tab) 650 mg PO Q6H PRN PRN Reason: Pain, Mild (1-3) Last Admin: 02/07/18 13:21 Dose: 650 mg Albuterol/Ipratropium (Duoneb 3 Mg/0.5 Mg (3 Ml) Ud) 3 ml IH [id number] [facility] Last Admin: 02/07/18 13:35 Dose: 3 ml Aspirin (Ecotrin) 81 mg PO DAILY [facility] Last Admin: 02/06/18 09:45 Dose: 81 mg Budesonide (Pulmicort Respules) 0.5 mg IH [id number] [facility] Last Admin: 02/07/18 07:23 Dose: 0.5 mg Ergocalciferol (Drisdol 50,000 Intl Units Cap) 1 cap PO SUN [facility] Famotidine (Pepcid) 20 mg PO HS [facility] Last Admin: 02/06/18 21:50 Dose: 20 mg Gentamicin Sulfate 150 mg/ (Sodium Chloride) 103.75 mls @ 100 mls/hr IVPB Q8H [facility] Last Admin: 02/07/18 09:30 Dose: 100 mls/hr Insulin Detemir (Levemir) 10 unit SC [facility] Last Admin: 02/06/18 21:50 Dose: Not Given Insulin Human Regular (Humulin R High) 0 units SC [facility] PRN Reason: Protocol Last Admin: 02/07/18 11:30 Dose: Not Given Levalbuterol HCl (Xopenex) 1.25 mg IH [id number] PRN PRN Reason: Shortness of Breath Last Admin: 02/03/18 20:08 Dose: 1.25 mg Lisinopril (Zestril) 20 mg PO BID [facility] Last Admin: 02/07/18 10:41 Dose: 20 mg Magnesium Hydroxide (Milk Of Magnesia) 30 ml PO HS PRN PRN Reason: Constipation Metoprolol Tartrate (Lopressor) 25 mg PO BID [facility] Last Admin: 02/07/18 10:32 Dose: 25 mg Montelukast Sodium (Singulair) 10 mg PO [facility] Last Admin: 02/06/18 21:50 Dose: 10 mg Melatonin [Melatonin (] 3 Mg (Home Med)) 3 mg PO [facility] Last Admin: 02/06/18 22:30 Dose: Not Given Warfarin Sodium (Coumadin) 6 mg PO DAILY [facility] PRN Reason: Protocol Last Admin: 02/06/18 18:12 Dose: 6 mg - Labs Labs: 02/07/18 06:00 02/07/18 06:00 PT 28.8 SECONDS (9.4-12.5) H 02/07/18 06:00 INR 2.46 02/07/18 06:00 APTT 39.1 Seconds (25.1-36.5) H 02/07/18 06:00 - Constitutional Appears: Non-toxic, No Acute Distress, Chronically Ill - Head Exam Head Exam: ATRAUMATIC, NORMOCEPHALIC - Eye Exam Eye Exam: EOMI, PERRL Pupil Exam: NORMAL ACCOMODATION, PERRL - ENT Exam ENT Exam: Mucous Membranes Moist, Normal External Ear Exam, TM's Normal Bilaterally - Neck Exam Neck Exam: Full ROM, Normal Inspection - Respiratory Exam Respiratory Exam: Clear to Ausculation Bilateral, NORMAL BREATHING PATTERN. absent: Rales, Rhonchi, Wheezes - Cardiovascular Exam Cardiovascular Exam: REGULAR RHYTHM, RRR, +S1, +S2 - GI/Abdominal Exam GI & Abdominal Exam: Soft, Normal Bowel Sounds. absent: Distended, Tenderness - Extremities Exam Extremities Exam: Full ROM, Normal Inspection - Neurological Exam Neurological Exam: Alert, Awake, CN II-XII Intact, Oriented x3 - Psychiatric Exam Psychiatric exam: Normal Affect, Normal Mood - Skin Skin Exam: Intact, Normal Color Assessment and Plan - Assessment and Plan (Free Text) Assessment: The patient with groin pain and blood in the urine. The patient with PCN allergy. Started patient on Aztreonam. Supportive care. Urine cultures pending but showing gram negative rods. Leukocytosis that has downtrended significantly and now resolved. Monitor WBC. Awaiting identification and sensitivities from urine cultures. ESBL+ E. coli from urine cultures. Added Gentamicin 150mg IV q8hrs for 3 days of treatment. On day 3 of antibiotic treatment with Gentamicin. Patient feeling better. Still complaining of right knee soreness/pain. May extend Gentamicin a day or two given cystoscopy today. Thank you for allowing me to participate in the care of this patient, we will follow with you.
--- NOTE | 2018-02-07 15:41 | PN ---
Copied To: Yosef Dunbar MD Attending MD: Yosef Dunbar MD DATE: 02/07/2018 PULMONARY PROGRESS NOTE REFERRING PHYSICIAN: Thalia Frazier MD. SUBJECTIVE: The patient is lying in the bed, head at 45 degrees, n.p.o., scheduled for cystoscopy. No headache, no rhinitis. No nausea, no vomiting, no diarrhea. Has a clear urine. Has a decubiti ulcer. Trace leg swelling. PHYSICAL EXAMINATION: GENERAL: In no acute distress. VITAL SIGNS: Temperature is 98, heart rate 65, respiratory rate is 18, blood pressure 164/82, pulse ox 97% on 2 liters nasal cannula. HEENT: Moist mucous membrane. Crowded airway. NECK: Supple. No JVD. LUNGS: Have a fair airflow with few rhonchi. HEART: S1 and S2. ABDOMEN: Soft, nontender, no organomegaly. EXTREMITIES: There is not much edema, has an indwelling catheter, decubiti ulcer. NEUROLOGIC: Awake, alert, and follows simple command. MEDICATIONS: He is on Coumadin 6 mg, also on vitamin D 50,000 units weekly, DuoNeb every 6 hours, Ecotrin 81 mg daily, gentamicin 150 mg every 8 hours, insulin coverage, Levemir 10 units subcu at bedtime, metoprolol tartrate 25 mg twice a day, also on melatonin 3 mg at bedtime, milk of magnesia 30 mL at bedtime p.r.n., Pepcid is at 20 mg daily, Pulmicort inhaled twice a day, Singulair 10 mg daily, Tylenol p.r.n. basis, Xopenex inhaled every 6 hours, and Zestril 20 mg twice a day. LABORATORY DATA: Shows hemoglobin 13.4, hematocrit 41.1, WBC is 9.6, platelet count is 218. INR 2.46. Sodium 135, potassium 3.8, chloride 97, bicarbonate 33, BUN 11, creatinine 0.6, glucose 238, uric acid 2.8, calcium 8.4, phosphorus 3.3, magnesium 1.8. AST 27, ALT 39, alk phos is 69. C-reactive protein more than 15. Albumin is 3.1. Microbiology, urine culture has E. coli and also has some yeast. IMPRESSION AND PLAN: Recurrent urinary tract infection, has indwelling catheter. No penis, but has some urethral opening. Need Ceron catheter because of decubiti ulcer. Obstructive lung disease, obstructive sleep apnea syndrome, paraplegic secondary to spine surgery in the past, morbid obesity, decubiti ulcer. Case discussed with Anesthesiology. The patient's status is optimized. Of course, high risk for sleep apnea syndrome, need close cardiopulmonary monitoring while sedated. May use CPAP if any respiratory embarrassment. Thank you and we will follow with you. Yosef Dunbar MD
--- NOTE | 2018-02-07 19:31 | PCM.URO ---
Urology Progress Note - Objective Lab Studies: Reviewed (gu dx: hematuria, retention, gu plans : unfortunately two days in a row, scheduling and then clearance -- at this point no plans for future work up . The urine has cleared up . maintain [place]ague) Lab Results Last 24 Hours: Laboratory Results - last 24 hr 02/06/18 02/07/18 02/07/18 21:18 06:00 06:00 WBC 9.6 RBC 4.98 Hgb 13.4 L Hct 41.1 L MCV 82.5 MCH 26.9 MCHC 32.6 RDW 14.2 Plt Count 218 MPV 11.2 H Gran % 74.3 H Lymph % (Auto) 14.4 L [place] % (Auto) 7.8 H Eos % (Auto) 3.4 Baso % (Auto) 0.1 Gran # 7.14 H Lymph # (Auto) 1.4 [place] # (Auto) 0.8 H Eos # (Auto) 0.3 Baso # (Auto) 0.01 ESR 39 H PT INR APTT Sodium 135 Potassium 3.8 Chloride 97 L Carbon Dioxide 33 Anion Gap 10 BUN 11 Creatinine 0.6 L Est GFR ( Amer) > 60 Est GFR (Non-Af Amer) > 60 POC Glucose (mg/dL) 200 H Random Glucose 238 H Uric Acid 2.4 L Calcium 8.4 Phosphorus 3.3 Magnesium 1.8 Total Bilirubin 0.4 AST 27 ALT 39 Alkaline Phosphatase 69 C-React Prot High Sens Total Protein 6.2 Albumin 3.1 Globulin 3.1 Albumin/Globulin Ratio 1.0 L 02/07/18 02/07/18 02/07/18 06:00 06:00 07:20 WBC RBC Hgb Hct MCV MCH MCHC RDW Plt Count MPV Gran % Lymph % (Auto) [place] % (Auto) Eos % (Auto) Baso % (Auto) Gran # Lymph # (Auto) [place] # (Auto) Eos # (Auto) Baso # (Auto) ESR PT 28.8 H INR 2.46 APTT 39.1 H Sodium Potassium Chloride Carbon Dioxide Anion Gap BUN Creatinine Est GFR ( Amer) Est GFR (Non-Af Amer) POC Glucose (mg/dL) 250 H Random Glucose Uric Acid Calcium Phosphorus Magnesium Total Bilirubin AST ALT Alkaline Phosphatase C-React Prot High Sens > 15.00 H Total Protein Albumin Globulin Albumin/Globulin Ratio Intake & Output: Intake & Output 02/07/18 02/07/18 02/08/18 06:59 18:59 06:59 Intake Total 100 Output Total 1000 Balance -900 Weight 398 lb Intake: IV 100 Right Forearm 100 Oral 0 Output: Urine 1000 3-way Urethral 1000 Stool 0 Vital Signs: Vital Signs - 24 hr 02/06/18 02/07/18 02/07/18 22:00 00:01 01:34 Temperature 99.9 F H Pulse Rate 71 63 70 Respiratory 20 Rate Blood Pressure 122/74 O2 Sat by Pulse 96 Oximetry 02/07/18 02/07/18 02/07/18 02:00 06:00 10:00 Temperature 98.0 F Pulse Rate 72 67 89 Respiratory 19 Rate Blood Pressure 131/56 L O2 Sat by Pulse 96 Oximetry 02/07/18 02/07/18 02/07/18 10:32 10:41 10:57 Temperature 98.0 F Pulse Rate 89 80 72 Respiratory 16 Rate Blood Pressure 166/84 H 166/84 H 180/87 H O2 Sat by Pulse 98 Oximetry 02/07/18 02/07/18 02/07/18 11:30 14:00 18:00 Temperature 98.0 F 98.2 F Pulse Rate 65 89 68 Respiratory 15 19 Rate Blood Pressure 164/82 H 137/86 O2 Sat by Pulse 97 Oximetry 02/07/18 18:08 Temperature Pulse Rate 76 Respiratory Rate Blood Pressure 137/86 O2 Sat by Pulse Oximetry
[2018-02-07] MEDS: MELATONIN 3 MG PO SCH (21:00)
[2018-02-07] MEDS: Insulin Detemir 100 units/ml Vial (Levemir) SC SCH (21:01)
[2018-02-08] MEDS: Albuterol-Ipratrop 3 mg / 0.5 (3 ml) UD IH SCH ×3 (01:09→13:24)
--- NOTE | 2018-02-08 02:14 | PN ---
DATE: 02/07/2018 SUBJECTIVE: The patient was seen and examined on the bedside. Looking comfortable. No nausea, vomiting, diarrhea. No hematuria or hematochezia. No headache or dizziness. No chest pain. No palpitations. Status post cystoscopy by Dr. Ankit Ly. Ceron was leaking. He changed the Ceron. PHYSICAL EXAMINATION: VITAL SIGNS: Temperature 98, heart rate 65, respiratory rate 18, blood pressure 160/82, pulse oximetry 97% on 2 L nasal cannula. HEENT: Head normocephalic, atraumatic. Eyes PERRLA. Extraocular muscles intact. Conjunctivae clear. Nose patent. Mucous membrane moist. NECK: Supple. No carotid bruit. No JVD or thyromegaly. CHEST: Bilaterally symmetrical. HEART: S1 and S2 positive. LUNGS: Clear to auscultation. ABDOMEN: Soft. Bowel sounds positive. No organomegaly. EXTREMITIES: No edema. No cyanosis. NEUROLOGICAL: The patient is awake and alert. Follows simple commands. Oriented x3. MEDICATIONS: Coumadin, vitamin D, DuoNeb, Ecotrin, gentamicin, metoprolol, melatonin, Tylenol, Pepcid, Pulmicort, Xopenex. LABORATORY DATA: Hemoglobin 13.4, hematocrit 41.1, white blood cells 9.6, platelet count 218. INR 2.46. Sodium 135, potassium 3.8, AST 27, ALT 39. ASSESSMENT AND PLAN: Mr. Marcus Valdovinos has recurrent urinary tract infection, has indwelling catheter, penectomy, has some urethral opening, went for cystoscopy by Dr. Ankit Ly. He changed the Ceron catheter. 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 Getting IV antibiotics. Has indwelling Ceron catheter. Gastrointestinal, deep venous thrombosis prophylaxis. Repeat labs. We will follow up. Thalia Frazier MD [facility]
[2018-02-08 06:46] VITALS: O2SAT 95
[2018-02-08] MEDS: Insulin Reg-HIGH-Coverage SC SCH ×2 (08:00→12:26)
[2018-02-08] MEDS: Budesonide 0.5 mg/2 ml Inhal Susp UD IH SCH (08:03)
[2018-02-08 14:33] VITALS: BP 144/88; PULSE 77; RESP 18; TEMP 98.5
--- NOTE | 2018-02-08 18:36 | CP.PCM.PN ---
Subjective - Date & Time of Evaluation Date of Evaluation: 02/08/18 Time of Evaluation: 14:30 - Subjective Subjective: Infectious Disease Follow Up: February 08, 2018 57 yo male with morbid obesity sent to [facility] [place] [facility] for pain around catheter site and blood in the urine. The patient states abdominal pain and subjective fevers and chills. Urinalysis suggestive of UTI. The patient also has leukocytosis of 29.7. WBC down to 9.6 now. Urine cultures pending. On prior hospitalizations, the patient had Enterococcus and E. coli. PCN allergies. ESBL+ E. Coli on urine cultures now. Currently on Gentamicin. Taken to cystoscopy yesterday. Objective - Vital Signs/Intake and Output Vital Signs (last 24 hours): Temp Pulse Resp BP Pulse Ox 98.5 F 77 18 144/88 95 02/08/18 12:00 02/08/18 12:00 02/08/18 12:00 02/08/18 12:00 02/08/18 06:00 Intake and Output: 02/08/18 02/08/18 06:59 18:59 Intake Total 440 Output Total 1200 Balance -760 - Labs Labs: 02/07/18 06:00 02/07/18 06:00 PT 28.8 SECONDS (9.4-12.5) H 02/07/18 06:00 INR 2.46 02/07/18 06:00 APTT 39.1 Seconds (25.1-36.5) H 02/07/18 06:00 - Constitutional Appears: Non-toxic, No Acute Distress, Chronically Ill - Head Exam Head Exam: ATRAUMATIC, NORMOCEPHALIC - Eye Exam Eye Exam: EOMI, PERRL Pupil Exam: NORMAL ACCOMODATION, PERRL - ENT Exam ENT Exam: Mucous Membranes Moist, Normal External Ear Exam, TM's Normal Bilaterally - Neck Exam Neck Exam: Full ROM, Normal Inspection - Respiratory Exam Respiratory Exam: Clear to Ausculation Bilateral, NORMAL BREATHING PATTERN. absent: Rales, Rhonchi, Wheezes - Cardiovascular Exam Cardiovascular Exam: REGULAR RHYTHM, RRR, +S1, +S2 - GI/Abdominal Exam GI & Abdominal Exam: Soft, Normal Bowel Sounds. absent: Distended, Tenderness - Extremities Exam Extremities Exam: Full ROM, Normal Inspection - Neurological Exam Neurological Exam: Alert, Awake, CN II-XII Intact, Oriented x3 - Psychiatric Exam Psychiatric exam: Normal Affect, Normal Mood - Skin Skin Exam: Intact, Normal Color Assessment and Plan - Assessment and Plan (Free Text) Assessment: The patient with groin pain and blood in the urine. The patient with PCN allergy. Started patient on Aztreonam. Supportive care. Urine cultures pending but showing gram negative rods. Leukocytosis that has downtrended significantly and now resolved. Monitor WBC. Awaiting identification and sensitivities from urine cultures. ESBL+ E. coli from urine cultures. Added Gentamicin 150mg IV q8hrs for 3 days of treatment. On day 3 of antibiotic treatment with Gentamicin. Patient feeling better. Still complaining of right knee soreness/pain. May extend Gentamicin a day or two given cystoscopy today. For discharge back to [place] today. Thank you for allowing me to participate in the care of this patient, we will follow with you.
[2018-02-11] MEDS ORDERED: Ergocalciferol 50,000 Intl Units Cap PO SCH (10:00)
== END 2018-02-08 16:46 | DRG 699 ==
LOC: ED 18:46 → ERH 23:02 → 2RNO 02-02 01:58
PROVIDERS: ADMIT Internal Medicine; ATTEND Internal Medicine
DX: T83.091A Other mechanical complication of indwelling urethral catheter, initial encounter (principal); G82.20 Paraplegia, unspecified; N39.0 Urinary tract infection, site not specified; Z68.43 Body mass index [BMI] 50.0-59.9, adult; N13.9 Obstructive and reflux uropathy, unspecified; E11.65 Type 2 diabetes mellitus with hyperglycemia; E86.0 Dehydration; I11.0 Hypertensive heart disease with heart failure; I50.9 Heart failure, unspecified; D75.1 Secondary polycythemia; E78.00 Pure hypercholesterolemia, unspecified; G47.33 Obstructive sleep apnea (adult) (pediatric); H54.62 Unqualified visual loss, left eye, normal vision right eye; D64.9 Anemia, unspecified; J44.9 Chronic obstructive pulmonary disease, unspecified; E66.01 Morbid (severe) obesity due to excess calories; K59.00 Constipation, unspecified; N31.9 Neuromuscular dysfunction of bladder, unspecified; B96.20 Unspecified Escherichia coli [E. coli] as the cause of diseases classified elsewhere; Z16.12 Extended spectrum beta lactamase (ESBL) resistance; R31.9 Hematuria, unspecified; M19.90 Unspecified osteoarthritis, unspecified site; Y84.6 Urinary catheterization as the cause of abnormal reaction of the patient, or of later complication, without mention of misadventure at the time of the procedure; Z74.01 Bed confinement status; Z79.01 Long term (current) use of anticoagulants; Z79.4 Long term (current) use of insulin; Z79.82 Long term (current) use of aspirin; Z88.0 Allergy status to penicillin; Z87.891 Personal history of nicotine dependence

== ENCOUNTER 2018-04-12 17:35 | Emergency (ER) | payer MEDICARE, MEDICAID ==
[2018-04-12 17:36] VITALS: PULSE 90
[2018-04-12 17:46] VITALS: BMI 55.5
[2018-04-12 18:56] VITALS: RESP 18; O2SAT 98
--- NOTE | 2018-04-12 19:38 | ED PDOC ---
Arrival/HPI - General Chief Complaint: Male Genitourinary Time Seen by Provider: 04/12/18 17:49 Historian: Patient - History of Present Illness Narrative History of Present Illness (Text): 04/12/18 18:19 57 year old male, whose past medical history includes diabetes type 2 and indwelling Montague catheter, present to the emergency department from [facility], here for Montague change. Patient reports they attempted to clean him today in the halfway when they found puss where the Montague is inserted. Montague is draining. Last time his Montague was changed was august in this hospital by Dr. Ly. He denies fevers, chills, headache, dizziness, chest pain, shortness of breath, dyspnea on exertion, cough, abdominal pain, nausea, vomiting, diarrhea, back pain, neck pain, or any other complaint. PMD: Dr. Frazier Time/Duration: Prior to Arrival Symptom Course: Unchanged Activities at Onset: Light Context: Other (halfway) Past Medical History - Provider Review Nursing Documentation Reviewed: Yes - Past History Past History: No Previous - Infectious Disease Hx of Infectious Diseases: None - Cardiac Hx Cardiac Disorders: Yes Hx Congestive Heart Failure: Yes Hx Hypertension: Yes - Pulmonary Hx Respiratory Disorders: Yes Hx Asthma: Yes Hx Chronic Obstructive Pulmonary Disease (COPD): Yes - Neurological Hx Neurological Disorder: No - HEENT Hx HEENT Disorder: No - Renal Hx Renal Disorder: No - Endocrine/Metabolic Hx Endocrine Disorders: Yes Hx Diabetes Mellitus Type 2: Yes - Hematological/Oncological Hx Blood Disorders: No - Integumentary Hx Dermatological Disorder: No - Musculoskeletal/Rheumatological Hx Musculoskeletal Disorders: Yes Hx Arthritis: Yes Hx Back Pain: Yes Hx Falls: No - Gastrointestinal Hx Gastrointestinal Disorders: No - Genitourinary/Gynecological Hx Genitourinary Disorders: Yes - Psychiatric Hx Psychophysiologic Disorder: No Hx Substance Use: No - Surgical History Other/Comment: spinal sx - Anesthesia Hx Anesthesia: Yes Hx Anesthesia Reactions: No Hx Malignant Hyperthermia: No - Suicidal Assessment Feels Threatened In Home Enviroment: No Family/Social History - Physician Review Nursing Documentation Reviewed: Yes Family/Social History: No Known Family HX Smoking Status: Former Smoker Hx Alcohol Use: Yes (OCCASIONALLY) Hx Substance Use: No Hx Substance Use Treatment: No Allergies/Home Meds Allergies/Adverse Reactions: Allergies Penicillins Allergy (Severe, Verified 04/12/18 17:41) ANAPHYLAXIS Home Medications: Home Meds Medication Instructions Recorded Confirmed Aspirin [Ecotrin] 81 mg PO DAILY 07/10/17 02/01/18 Insulin Detemir [Levemir] 10 units SC HS 07/10/17 02/01/18 Warfarin [Coumadin] 6 mg PO DAILY 07/10/17 02/01/18 Cholecalciferol (Vitamin D3) 50,000 unit PO SUN 09/12/17 02/01/18 [Vitamin D3] Melatonin 3 mg PO HS 09/12/17 02/01/18 Acetaminophen [Non-Aspirin Pain 2 tab PO PRN PRN 10/20/17 02/01/18 Relief] Metoprolol Tartrate [Lopressor] 25 mg PO BID 10/20/17 02/01/18 Magnesium Hydroxide [Milk Of 30 ml PO HS PRN 02/01/18 02/01/18 Magnesia] Review of Systems - Physician Review All systems were reviewed & negative as marked: Yes - Review of Systems Constitutional: absent: Fevers Respiratory: absent: SOB, Cough Cardiovascular: absent: Chest Pain Gastrointestinal: absent: Abdominal Pain, Diarrhea, Nausea, Vomiting Genitourinary Male: Other (puss at the tip of folley) Musculoskeletal: absent: Back Pain, Neck Pain Neurological: absent: Headache, Dizziness Physical Exam Vital Signs Reviewed: Yes Vital Signs Temp Pulse Resp BP Pulse Ox 04/12/18 18:55 98.0 F 78 18 132/73 98 Temperature: Afebrile Blood Pressure: Normal Pulse: Regular Respiratory Rate: Normal Appearance: Positive for: Well-Appearing, Non-Toxic, Other (morbidly obese) Pain Distress: None Mental Status: Positive for: Alert and Oriented X 3 - Systems Exam Head: Present: Atraumatic, Normocephalic Pupils: Present: PERRL Extroacular Muscles: Present: EOMI Conjunctiva: Present: Normal Mouth: Present: Moist Mucous Membranes Neck: Present: Normal Range of Motion Respiratory/Chest: Present: Clear to Auscultation, Good Air Exchange. No: Respiratory Distress, Accessory Muscle Use Cardiovascular: Present: Regular Rate and Rhythm, Normal S1, S2. No: Murmurs Abdomen: No: Tenderness, Distention, Peritoneal Signs, Rebound, Guarding Genitourinary Male: Present: Penile Discharge (draining of yellow urine and noted sediments in the bag), Other (+montague in place, positive puss noted at the tip of folley where it inserts to the urethra. S[employer]PER[employer]). No: Testicle Tenderness, Testicle Swelling Back: Present: Normal Inspection Upper Extremity: Present: Normal Inspection. No: Cyanosis, Edema Lower Extremity: Present: Normal Inspection. No: Edema Neurological: Present: GCS=15, CN II-XII Intact, Speech Normal Skin: Present: Warm, Dry, Normal Color. No: Rashes Psychiatric: Present: Alert, Oriented x 3, Normal Insight, Normal Concentration Medical Decision Making ED Course and Treatment: 04/12/18 18:19 Impression: 57 year old male who presents to the emergency department for Montague change. Plan: -- Montague -- Reassess and disposition Prior Visits: Notes and results from previous visits were reviewed. Progress Notes: Case d/w Dr. Ly, he is in agreement to change the montague catheter and to place the patient on macrobid if Urinalysis is + for UTI as his urine cx in the past grew +e coli sensitive to macrobid. Old montague catheter was removed by PA. New montague inserted by SIGN BUILDER SUPERVISOR and PA at bedside, with yellow urine draining. Dr. Ly notified and agrees with plan for outpatient follow up. Urinalysis +UTI with blood/glucose/protien. Patient given macrobid. Patient is stable for d/c. - PA / LABEL REWINDER / Resident Statement MD/DO has reviewed & agrees with the documentation as recorded. - Scribe Statement The provider has reviewed the documentation as recorded by the Francois Mccormick Provider Scribe Attestation: All medical record entries made by the Francois were at my direction and personally dictated by me. I have reviewed the chart and agree that the record accurately reflects my personal performance of the history, physical exam, medical decision making, and the department course for this patient. I have also personally directed, reviewed, and agree with the discharge instructions and disposition. Disposition/Present on Arrival - Present on Arrival Any Indicators Present on Arrival: Yes History of DVT/PE: No History of Uncontrolled Diabetes: Yes Urinary Catheter: Yes History of Decub. Ulcer: No History Surgical Site Infection Following: None - Disposition Have Diagnosis and Disposition been Completed?: Yes Diagnosis: UTI (urinary tract infection) due to urinary indwelling Montague catheter Disposition: HOME/ ROUTINE Disposition Time: 22:00 Patient Plan: Discharge Condition: STABLE Discharge Instructions (ExitCare): Urinary Tract Infection, Adult (DC) Additional Instructions: Follow up with Dr. Ly in 2 days without fail. Take medications as prescribed. Return to the ER at any time for any new or worsening symptoms. Forms: [employer] (Welsh)
[2018-04-12 21:44] LABS: URINE BILIRUBIN NEGATIVE (NEGATIVE); URINE BLOOD LARGE (NEGATIVE); URINE GLUCOSE (UA) 500 mg/dL (NEGATIVE); URINE LEUKOCYTE ESTERASE MODERATE Leu/uL (NEGATIVE); URINE PROTEIN >=300 mg/dL (<30 mg/dL)
[2018-04-12 21:47] LABS: URINE APPEARANCE CLOUDY (CLEAR); URINE COLOR LIGHT RED (YELLOW)
[2018-04-12 22:02] LABS: URINE BACTERIA LARGE (NEG); URINE RBC TNTC /hpf (0-2); URINE WBC TNTC /hpf (0-6)
[2018-04-12 23:51] VITALS: BP 128/73; PULSE 72; TEMP 98
== END 2018-04-13 00:51 | disposition home or self-care (01) ==
LOC: ED 17:35
DX: T83.511A Infection and inflammatory reaction due to indwelling urethral catheter, initial encounter (principal); Y84.8 Other medical procedures as the cause of abnormal reaction of the patient, or of later complication, without mention of misadventure at the time of the procedure; Y92.89 Other specified places as the place of occurrence of the external cause

== ENCOUNTER 2018-05-19 12:28 | Inpatient (IN) | payer MEDICARE, MEDICAID ==
[2018-05-19 12:29] VITALS: PULSE 90
--- NOTE | 2018-05-19 12:45 | ED PDOC ---
Arrival/HPI - General Time Seen by Provider: 05/19/18 12:36 Historian: Patient - History of Present Illness Narrative History of Present Illness (Text): 05/19/18 12:45 57 m with pmhx of diabetes type 2 and indwelling Montague catheter presents to the ED with suprapubic pain since last night. Patient reports chronic suprapubic pain from suprapubic catheter. Patient denies any fever, urinary output changes, or any other complaints. PMD: Dr. Frazier Time/Duration: 24 hours (last night) Symptom Onset: Gradual Activities at Onset: Light Context: Other ([facility]) Past Medical History - Provider Review Nursing Documentation Reviewed: Yes - Past History Past History: No Previous - Infectious Disease Hx of Infectious Diseases: None - Cardiac Hx Cardiac Disorders: Yes Hx Cardiac Arrhythmia: Yes (Afib) Hx Circulatory Problems: Yes Hx Congestive Heart Failure: Yes Hx Hypertension: Yes Hx Peripheral Edema: Yes - Pulmonary Hx Respiratory Disorders: Yes Hx Asthma: Yes Hx Chronic Obstructive Pulmonary Disease (COPD): Yes - Neurological Hx Neurological Disorder: Yes HX Cerebrovascular Accident: Yes Hx Paralysis: Yes Other/Comment: Paraplegia/ spinal tumor-WITH SX 2015 unable to ambulated since, weakness ble and weak hand grasps, cold b/l ankles and feet - HEENT Hx HEENT Disorder: Yes Hx Blind: Yes (left eye) - Renal Hx Renal Disorder: No Other/Comment: renal insuffieciency - Endocrine/Metabolic Hx Endocrine Disorders: Yes Hx Adrenal Cancer: No Hx Diabetes Insipidus: Yes Hx Diabetes Mellitus Type 1: Yes Hx Diabetes Mellitus Type 2: Yes - Hematological/Oncological Hx Blood Disorders: No Hx Anemia: Yes Hx Blood Transfusions: No Hx Cancer: No Other/Comment: sepsis - Integumentary Hx Dermatological Disorder: No Other/Comment: ABDOMINAL FOLDS MASD,BILATERAL LE SKIN DRYNESS,LARGE THIN FLAKES,LIGHT BROWN SKIN DISCOLORATION,RIGHT BIG TOE WITH FLUSHED SKIN,SWELLING.STATES NAIL WAS CLIPPED AND NEVER HEALED. - Musculoskeletal/Rheumatological Hx Musculoskeletal Disorders: Yes Hx Arthritis: Yes Hx Back Pain: Yes Hx Falls: No Hx Spinal Stenosis: Yes Hx Unsteady Gait: Yes (bedridden hoya lift oob to chair) Other/Comment: paraplygia - Gastrointestinal Hx Gastrointestinal Disorders: No Other/Comment: Morbid obesity, incONTINENT - Genitourinary/Gynecological Hx Genitourinary Disorders: Yes Hx Incontinence: Yes Hx Urinary Tract Infection: Yes Other/Comment: chronic Urinary catheter - Psychiatric Hx Psychophysiologic Disorder: No Hx Substance Use: No - Surgical History Hx Musculoskeletal Surgery: Yes (RIGHT KNEE) Hx Orthopedic Surgery: Yes (BILATERAL WRIST CARPAL TUNNEL REPAIR) Other/Comment: spinal sx - Anesthesia Hx Anesthesia: Yes Hx Anesthesia Reactions: No Hx Malignant Hyperthermia: No - Suicidal Assessment Feels Threatened In Home Enviroment: No Family/Social History - Physician Review Nursing Documentation Reviewed: Yes Family/Social History: No Known Family HX Smoking Status: Former Smoker Hx Alcohol Use: Yes (OCCASIONALLY) Hx Substance Use: No Hx Substance Use Treatment: No Allergies/Home Meds Allergies/Adverse Reactions: Allergies Penicillins Allergy (Severe, Verified 04/12/18 17:41) ANAPHYLAXIS Home Medications: Home Meds Medication Instructions Recorded Confirmed RX: Aspirin [Ecotrin] 81 mg PO DAILY 07/10/17 05/19/18 RX: Insulin Detemir [Levemir] 10 units SC HS 07/10/17 05/19/18 RX: Warfarin [Coumadin] 6 mg PO DAILY 07/10/17 05/19/18 RX: Cholecalciferol (Vitamin D3) 50,000 unit PO SUN 09/12/17 05/19/18 [Vitamin D3] RX: Melatonin 3 mg PO HS 09/12/17 05/19/18 RX: Acetaminophen [Non-Aspirin 2 tab PO PRN PRN 10/20/17 05/19/18 Pain Relief] RX: Metoprolol Tartrate [Lopressor] 25 mg PO BID 10/20/17 05/19/18 RX: Magnesium Hydroxide [Milk Of 30 ml PO HS PRN 02/01/18 05/19/18 Magnesia] Review of Systems - Review of Systems Constitutional: absent: Fevers Gastrointestinal: Other (+suprapubic pain; suprapubic catheter in place) Genitourinary Male: absent: Urinary Output Changes Physical Exam - Physical Exam Narrative Physical Exam (Text): 05/19/18 12:50 Gen: VS reviewed, alert, well developed, well nourished, nontoxic, mild distress, very obese. ENT: normal pharynx. Eye: EOMI, PERRL. Neck: no JVD, supple, no adenopathy. CV: regular rate, regular rhythm, no rubs, no murmur, no gallops, S1, S2, pulses equal and strong. Pulm: no distress, clear to auscultation, no wheeze, no rhonchi, breath sounds equal, no rales. Abd: soft, nontender, no guarding, no rebound, no rigidity. GI: Suprapubic catheter in place with no urine in collection bag. Purulence around the catheter stoma site with a somewhat foul odor. Ext: no edema. Skin: good color, no rash, no cyanosis. Psych: responds appropriately to questions, normal affect. Neuro: oriented x 3, CN2-12 intact grossly, motor intact, sensation intact. Vital Signs Reviewed: Yes Temperature: Afebrile Blood Pressure: Hypertensive Pulse: Tachycardic Respiratory Rate: Normal Appearance: Positive for: Well-Appearing, Non-Toxic Medical Decision Making ED Course and Treatment: 05/19/18 15:36 CODE SEPSIS called. 05/19/18 15:[address] frazier, patient to be admitted for uti/sepsis stemming from urinary catheter obstruction. case was discussed with dr. madera and he has requested a CT a/p to confirm catheter placement. - EKG Interpretation EKG Interpretation (Text): 05/19/18 16:35 1306: sinus tachycardia at 121 bpm, nml qrs, nml axis, poor r wave progression, nonspecific t wave abn Interpreted by ED Physician: Yes Procedures - Additional Procedures Progress: suprapubic catheter was removed by myself. a 18g montague catheter was replaced by myself, assisted by MAGDIEL Garcia. sterile technique maintained throughout procedure, patient tolerated well. there was immediate good flow of cloudy,nonbloody urine seen. - Scribe Statement The provider has reviewed the documentation as recorded by the Marekibpb Corrales All medical record entries made by the Scribe were at my direction and personally dictated by me. I have reviewed the chart and agree that the record accurately reflects my personal performance of the history, physical exam, medical decision making, and the department course for this patient. I have also personally directed, reviewed, and agree with the discharge instructions and disposition. Disposition/Present on Arrival - Present on Arrival Any Indicators Present on Arrival: No History of DVT/PE: No History of Uncontrolled Diabetes: Yes Urinary Catheter: Yes History Surgical Site Infection Following: None - Disposition Have Diagnosis and Disposition been Completed?: Yes Diagnosis: Sepsis Disposition: HOSPITALIZED Disposition Time: 15:53 Condition: GUARDED
--- NOTE | 2018-05-19 15:12 | CARD ---
APPROVED REPORT Date of service: 05/19/2018 EKG Measurement Heart [id number] <Conclusion> Sinus tachycardia Possible Left atrial enlargement Borderline ECG
[2018-05-19 15:21] LABS: VENOUS BLOOD GAS PO2 132 mm/Hg (30-55)
[2018-05-19 15:23] LABS: BASO # 0.01 K/mm3 (0.0-2.0); GRAN # 23.39 (1.4-6.5); GRAN % 87.5 % (50.0-68.0); LYMPH # 1.9 (1.2-3.4); MEAN CELL VOLUME 80.4 fl (80.0-105.0); MEAN CORPUSCULAR HEMOGLOBIN 27.1 pg (25.0-35.0); MEAN CORPUSCULAR HGB CONC 33.6 g/dl (31.0-37.0); MEAN PLATELET VOLUME 12.1 fl (7.0-11.0); MONO # 1.5 (0.1-0.6); MONO % 5.5 % (1.0-6.0); PLATELET COUNT 237 10^3/uL (120.0-450.0); RED CELL DISTRIBUTION WIDTH 14.3 % (11.5-14.5)
[2018-05-19 15:28] LABS: URINE APPEARANCE CLOUDY (CLEAR); URINE BILIRUBIN NEGATIVE (NEGATIVE); URINE BLOOD LARGE (NEGATIVE); URINE COLOR YELLOW (YELLOW); URINE GLUCOSE (UA) >=1000 mg/dL (NEGATIVE); URINE LEUKOCYTE ESTERASE MODERATE Leu/uL (NEGATIVE); URINE PROTEIN 100 mg/dL (<30 mg/dL); URINE UROBILINOGEN 0.2 E.U./dL (<1 E.U./dL)
[2018-05-19 15:31] LABS: URINE BACTERIA LARGE (NEG); URINE EPITHELIAL CELLS 0 - 2 /hpf (0-5); URINE WBC TNTC /hpf (0-6)
[2018-05-19 15:34] LABS: WHITE BLOOD COUNT 26.8 10^3/uL (4.5-11.0)
[2018-05-19 15:35] LABS: HEMOGLOBIN 18.4 g/dL (14.0-18.0)
[2018-05-19] MEDS ORDERED: Sodium Chloride 0.9% 1,000 ML IV STA (15:45)
[2018-05-19] MEDS ORDERED: Piperacillin/Tazobact 3.375 gm 100 ML IVPB STA (15:45)
[2018-05-19] MEDS ORDERED: Vancomycin 500 mg Inj IVPB STA (15:46)
[2018-05-19] MEDS ORDERED: Aztreonam 1 Gm in NS 100mL 100 ML IVPB STA (15:50)
[2018-05-19 15:52] LABS: ATYPICAL LYMPHOCYTE 2 % (0.0-0.0); LYMPHOCYTE 3 % (22.0-35.0); MONOCYTE 8 % (1.0-6.0); NEUTROPHIL 87 % (50.0-70.0); PLATELET ESTIMATE NORMAL (NORMAL)
[2018-05-19 15:53] LABS: LARGE PLATELETS PRESENT
[2018-05-19 15:58] VITALS: BMI 54.8
[2018-05-19] MEDS ORDERED: VANCOMYCIN IV ONE (16:00)
[2018-05-19] MEDS ORDERED: DEXTROSE 5% IV ONE (16:00)
[2018-05-19] MEDS ORDERED: WATER IV ONE (16:00)
[2018-05-19 16:22] LABS: CALCIUM 9.1 mg/dL (8.4-10.5)
[2018-05-19] MEDS ORDERED: Insulin Regular 1 UNITS/0.01 ML ML IVP STA (16:28)
--- NOTE | 2018-05-19 17:43 | CT ---
PROCEDURE: CT Abdomen and Pelvis without Oral or IV contrast. HISTORY: sepsis; catheter placement COMPARISON: CT abdomen and pelvis without IV contrast performed 07/11/17 TECHNIQUE: Contiguous axial images of the abdomen and pelvis. No oral or IV contrast administered. Coronal and Sagittal reformats generated and reviewed. Radiation dose: Total exam DLP = 2232.32 mGy-cm. This CT exam was performed using one or more of the following dose reduction techniques: Automated exposure control, adjustment of the mA and/or kV according to patient size, and/or use of iterative reconstruction technique. FINDINGS: There is limited evaluation of the solid organs without the administration of IV contrast. Examination also limited by habitus. LOWER THORAX: Visualized portions of the heart appear within normal limits of size. Small pericardial effusion. There is no visible pleural effusion or pneumothorax. LIVER: Unremarkable unenhanced appearance. GALLBLADDER AND BILE DUCTS: Unremarkable unenhanced appearance. PANCREAS: Atrophy. SPLEEN: Unremarkable unenhanced appearance. ADRENALS: Unremarkable unenhanced appearance. KIDNEYS AND URETERS: No hydronephrosis or obstructing renal calculus. BLADDER: Ceron catheter within a decompressed urinary bladder which contains air. REPRODUCTIVE: Unremarkable. APPENDIX: The appendix appears within normal limits of caliber. No secondary signs of acute appendicitis. BOWEL: The stomach is nondistended. Lack of oral contrast limits evaluation for bowel pathology. The bowel loops appear within normal limits of caliber without evidence of intestinal obstruction. Thickening of the rectosigmoid colon of uncertain significance. Question rectal wall thickening. PERITONEUM: No significant free fluid. No definite free air. LYMPH NODES: Sub cm mesenteric and retroperitoneal lymph nodes, nonspecific. VASCULATURE: Atherosclerotic calcifications of the aorta. No aortic aneurysm. BONES: Degenerative changes of the spine. OTHER FINDINGS: Bilateral fat containing inguinal hernias. IMPRESSION: Decompressed urinary bladder which contains Ceron catheter and foci of air. Air may be secondary to recent instrumentation however cystitis cannot be excluded. Recommend correlation with urinalysis. Thickening of the rectosigmoid colon of uncertain significance. Question rectal wall thickening. Correlate clinically for possibility of colitis/proctitis. Follow-up as indicated. Additional incidental findings as above.
[2018-05-19 18:02] LABS: VENOUS BLOOD GAS BASE EXCESS -1.3 mmol/L (0.0-2.0); VENOUS BLOOD GAS PO2 131 mm/Hg (30-55); VENOUS BLOOD PH 7.38 (7.32-7.43)
--- NOTE | 2018-05-19 19:05 | PCM.SEPTIC ---
<Jb Smith - Last Filed: 05/19/18 19:04> Sepsis Progress Note - Reassessment Type Date of Evaluation: 05/19/18 Time of Evaluation: 18:50 Reassessment Type: Non-invasive reassessment - Non Invasive Reassessment Were the most recent vital sign reviewed: Yes Vital Sign (Latest): Temp Pulse Resp BP Pulse Ox 98 F 104 H 20 127/68 91 L 05/19/18 17:39 05/19/18 17:39 05/19/18 17:39 05/19/18 17:39 05/19/18 17:39 Cardiovascular: Yes: Chest Non Tender, Tachycardia. No: Gallop, JVD, Bradycardia Respiratory: Yes: Normal Breath Sounds, Decreased Breath Sounds. No: Accessory Muscle Use, Crackles, Rales, Rhonchi, Stridor Capillary Refill: Normal (Less than 2 sec) Skin: Normal Color <Mónica Valencia - Last Filed: 05/20/18 06:50> Sepsis Progress Note - Non Invasive Reassessment Vital Sign (Latest): Temp Pulse Resp BP Pulse Ox 98 F 84 18 109/84 97 05/20/18 06:00 05/20/18 06:00 05/20/18 06:00 05/20/18 06:00 05/20/18 06:00 Attending/Attestation - Attestation I have personally seen and examined this patient.: Yes I have fully participated in the care of the patient.: Yes I have reviewed all pertinent clinical information, including history, physical exam and plan: Yes
[2018-05-19] MEDS ORDERED: Levalbuterol 1.25 MG/3 ML Inhal Soln UD IH PRN (20:22)
[2018-05-19] MEDS ORDERED: Magnesium Hydroxide Susp 30 ml UD PO PRN (20:22)
[2018-05-19] MEDS: Insulin Reg-LOW-Coverage SC SCH (22:12)
[2018-05-19] MEDS: Insulin Detemir 100 units/ml Vial (Levemir) SC SCH (22:15)
[2018-05-19] MEDS: Aztreonam 2 Gm in NS 100mL 100 ML IVPB SCH (22:16)
--- NOTE | 2018-05-20 00:18 | CON ---
DATE OF CONSULTATION: 05/19/2018 REFERRING PHYSICIAN: Thalia Frazier MD REASON FOR CONSULTATION: Chronic lung disease, morbid obesity, sleep apnea syndrome, being admitted with urosepsis. HISTORY OF PRESENT ILLNESS: This is a 57-year-old gentleman well known to me from previous admission with multiple medical issues. He is a [facility] resident. 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 Apparently, at [facility], he had some suprapubic tenderness, brought into emergency room, found to have no urine output in the Ceron catheter. Urology consult was obtained. CT of the abdomen was done. Finally, ER physician changed the catheter with good urine flow, but seems like infected urine. Admitted for further workup. PAST MEDICAL HISTORY: As per history of present illness. FAMILY HISTORY: No significant cardiopulmonary disease reported. SOCIAL HISTORY: [facility] resident. Former smoker. Occasionally drinks alcohol. MEDICATIONS: He received Azactam 1 g IV in ER. He is also getting IV fluid, received one dose of vancomycin. ALLERGIES: PENICILLIN. REVIEW OF SYSTEMS: No headache or rhinitis. Has some shortness of breath. No chest pain. No abdominal pain. Suprapubic area is tender. Has a decubiti ulcer, leg discomfort. PHYSICAL EXAMINATION: GENERAL: No acute distress. VITAL SIGNS: Temperature is 98, heart rate is 104, respiratory rate is 20, blood pressure 127/68, pulse ox 91% on room air. HEENT: Moist mucous membranes. Crowded airway. Mallampati score is 4. NECK: Supple. No JVD. LUNGS: Have a few scattered rhonchi. HEART: S1 and S2, irregular. ABDOMEN: Obese, soft, nontender. EXTREMITIES: Trace edema. NEUROLOGIC: Awake, alert and follows simple commands. DIAGNOSTIC DATA: CT of the abdomen done in ER shows decompressed urinary bladder with spontaneous Ceron catheter, this is post catheter change. There is thickening of the rectosigmoid colon of uncertain etiology. 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 PLAN: Case discussed with nursing staff. Agree with the present treatment. We will start antibiotics. Place him on BiPAP, gastric prophylaxis, DVT prophylaxis, IV fluid, inhaled bronchodilator. May need GI consult for retrosigmoid thickening. Thank you and we will follow with you. Yosef Dunbar MD
[2018-05-20] MEDS ORDERED: Insulin Regular 1 UNITS/0.01 ML ML SC ONE (02:15)
--- NOTE | 2018-05-20 03:19 | HP ---
DATE: 05/19/2018 The patient was seen and examined at the bedside in the ER on 05/19/2018. CHIEF COMPLAINT: Lower abdominal pain, Ceron catheter problem. HISTORY OF PRESENT ILLNESS: The patient is a 57-year-old male with history of diabetes mellitus type 2, indwelling Ceron catheter, came to the emergency room with suprapubic pain from last night. The patient reports chronic suprapubic pain . The patient denies any fever or chills. No urinary output changes. No headache or dizziness. The patient is a poor historian. History of COPD and asthma and obstructive sleep apnea. Discussion done with Dr. Dunbar and ER physician. PAST MEDICAL HISTORY: Atrial fibrillation, cerebral palsy, congestive heart failure, hypertension, peripheral edema, asthma, COPD, cerebrovascular accident, paralysis, history of spinal tumor, unable to ambulate since the tumor surgery and accident, blind from the left eye, diabetes mellitus type 2, history of multiple time sepsis, COPD, asthma, arthritis, back pain, comorbid obesity, bedridden, Neil lift, out of bed to the chair, paraplegia. FAMILY HISTORY: Father and mother noncontributory. HABITS: Former smoker. Alcohol occasionally. SUBSTANCE ABUSE: None. HOME MEDICATIONS: Ecotrin, Levemir, Coumadin, vitamin D, melatonin, acetaminophen, metoprolol, Milk of Magnesia. ALLERGIES: THE PATIENT IS ALLERGIC TO PENICILLIN. REVIEW OF SYSTEMS: The patient was seen and examined at the bedside in the emergency room complaining about fatigue and tiredness. No fever or chills. No headache. No dizziness. No sinus problem. PHYSICAL EXAMINATION: VITAL SIGNS: Temperature 98, pulse 104, blood pressure 127/68, respiratory rate 20. HEENT: Head: Normocephalic, atraumatic. Eyes: PERRLA. Extraocular muscles are intact. Conjunctivae clear. Nose: Patent. NECK: Supple. No carotid bruits. No JVD or thyromegaly. CHEST: Bilaterally symmetrical. HEART: S1 and S2 positive. LUNGS: Clear to auscultation. ABDOMEN: Soft. Bowel sounds present. No organomegaly. EXTREMITIES: No edema. No cyanosis. NEUROLOGIC: The patient is awake and alert. Follows simple commands. LABORATORY DATA: White blood cells 26.8, hemoglobin 18.4, hematocrit 54.7, and platelets 237,000. Sodium 129, potassium 4.8, BUN 31, creatinine 2.3, glucose 485, BNP 802. ASSESSMENT AND PLAN: The patient is a 57-year-old male with leukocytosis, hemoconcentration, hemoglobin is high, hyponatremia, hypochloremia, renal insufficiency, hyperglycemia, proteinuria, ketonuria, urinary tract infection, hematuria, history of chronic obstructive pulmonary disease, obstructive sleep apnea syndrome. CAT scan of abdomen and pelvis done, has decompressed urinary bladder, which contains a Ceron catheter and foci of air. Air may be secondary to the recent instrumentation. However, this CAT scan is clearly recommending a correlation with urinalysis. Thickening of the rectosigmoid colon, of uncertain significance. Question of rectal wall thickening, correlate clinically with possibility of colitis and proctitis as per Dr. Malina Camargo. ID consult called with Dr. Vigil to continue antibiotics. Discussion done with Dr. Dunbar and Dr. Sumeet Moser. We will call urology consult with Dr. Ankit Ly. Repeat labs. We will continue monitoring Coumadin. We will follow up. Thalia Frazier MD MTDFátima
[2018-05-20] MEDS: Aztreonam 2 Gm in NS 100mL 100 ML IVPB SCH ×2 (06:10→21:12)
--- NOTE | 2018-05-20 06:40 | PCM.URO ---
Urology Progress Note - Objective Lab Studies: Reviewed (gu dx: urosepsis/retention gu plans : we had just changed the catheter about one-two weeks ago need to check the exact date// need to consider other options--maybe a suprapubic catheter will discuss further plans thanks for gu consult) Lab Results Last 24 Hours: Laboratory Results - last 24 hr 05/19/18 05/19/18 05/19/18 14:45 14:45 14:45 WBC 26.8 H* RBC 6.80 H Hgb 18.4 H* D Hct 54.7 H MCV 80.4 MCH 27.1 MCHC 33.6 RDW 14.3 Plt Count 237 MPV 12.1 H Gran % 87.5 H Lymph % (Auto) 7.0 L Amador % (Auto) 5.5 Eos % (Auto) 0.0 L Baso % (Auto) 0.0 Gran # 23.39 H Lymph # (Auto) 1.9 Amador # (Auto) 1.5 H Eos # (Auto) 0.0 Baso # (Auto) 0.01 Neutrophils % (Manual) 87 H Lymphocytes % (Manual) 3 L Atypical Lymphs % 2 H Monocytes % (Manual) 8 H Platelet Evaluation Normal Large Platelets Present pO2 132 H VBG pH 7.40 VBG pCO2 42.0 VBG HCO3 26.0 VBG Total CO2 27.3 VBG O2 Sat (Calc) 99.0 H VBG Base Excess 1.0 VBG Potassium 5.5 H Sodium 130.0 L Chloride 91.0 L Glucose 512 H* Lactate 2.9 H FiO2 21.0 Potassium Carbon Dioxide Anion Gap BUN Creatinine Est GFR ( Amer) Est GFR (Non-Af Amer) POC Glucose (mg/dL) Random Glucose Calcium NT-Pro-B Natriuret Pep Beta HCG, Quant Cancelled Venous Blood Potassium 5.5 H Urine Color Urine Appearance Urine pH Ur Specific Clayton Urine Protein Urine Glucose (UA) Urine Ketones Urine Blood Urine Nitrate Urine Bilirubin Urine Urobilinogen Ur Leukocyte Esterase Urine RBC Urine WBC Ur Epithelial Cells Urine Bacteria 05/19/18 05/19/18 05/19/18 15:00 15:00 15:00 WBC RBC Hgb Hct MCV MCH MCHC RDW Plt Count MPV Gran % Lymph % (Auto) Amador % (Auto) Eos % (Auto) Baso % (Auto) Gran # Lymph # (Auto) Amador # (Auto) Eos # (Auto) Baso # (Auto) Neutrophils % (Manual) Lymphocytes % (Manual) Atypical Lymphs % Monocytes % (Manual) Platelet Evaluation Large Platelets pO2 VBG pH VBG pCO2 VBG HCO3 VBG Total CO2 VBG O2 Sat (Calc) VBG Base Excess VBG Potassium Sodium 129 L Chloride 96 L Glucose Lactate FiO2 Potassium 4.8 Carbon Dioxide 24 Anion Gap 14 BUN 31 H Creatinine 2.3 H Est GFR ( Amer) 36 Est GFR (Non-Af Amer) 29 POC Glucose (mg/dL) Random Glucose 485 H* D Calcium 9.1 NT-Pro-B Natriuret Pep 802 H Beta HCG, Quant Venous Blood Potassium Urine Color Yellow Urine Appearance Cloudy Urine pH 6.0 Ur Specific Clayton 1.020 Urine Protein 100 H Urine Glucose (UA) >=1000 Urine Ketones Trace H Urine Blood Large H Urine Nitrate Negative Urine Bilirubin Negative Urine Urobilinogen 0.2 Ur Leukocyte Esterase Moderate H Urine RBC 2 - 5 Urine WBC Tntc Ur Epithelial Cells 0 - 2 Urine Bacteria Large 05/19/18 05/19/18 05/20/18 17:45 21:45 01:56 WBC RBC Hgb Hct MCV MCH MCHC RDW Plt Count MPV Gran % Lymph % (Auto) Amador % (Auto) Eos % (Auto) Baso % (Auto) Gran # Lymph # (Auto) Amador # (Auto) Eos # (Auto) Baso # (Auto) Neutrophils % (Manual) Lymphocytes % (Manual) Atypical Lymphs % Monocytes % (Manual) Platelet Evaluation Large Platelets pO2 131 H VBG pH 7.38 VBG pCO2 40.0 VBG HCO3 23.7 VBG Total CO2 24.9 VBG O2 Sat (Calc) 98.9 H VBG Base Excess -1.3 L VBG Potassium 5.3 H Sodium 128.0 L Chloride 93.0 L Glucose 505 H* Lactate 3.2 H FiO2 21.0 Potassium Carbon Dioxide Anion Gap BUN Creatinine Est GFR ( Amer) Est GFR (Non-Af Amer) POC Glucose (mg/dL) 433 H* 401 H* Random Glucose Calcium NT-Pro-B Natriuret Pep Beta HCG, Quant Venous Blood Potassium 5.3 H Urine Color Urine Appearance Urine pH Ur Specific Clayton Urine Protein Urine Glucose (UA) Urine Ketones Urine Blood Urine Nitrate Urine Bilirubin Urine Urobilinogen Ur Leukocyte Esterase Urine RBC Urine WBC Ur Epithelial Cells Urine Bacteria Intake & Output: Intake & Output 05/19/18 05/19/18 05/20/18 06:59 18:59 06:59 Weight 371 lb 371 lb Vital Signs: Vital Signs - 24 hr 05/19/18 05/19/18 05/19/18 12:29 15:29 17:39 Temperature 97.6 F 98 F Pulse Rate 123 H 107 H 104 H Pulse Rate [ Bilateral Dorsalis Pedis] Pulse Rate [ Bilateral Radial] Respiratory 20 18 20 Rate Blood Pressure 157/103 H 124/86 127/68 O2 Sat by Pulse 90 L 90 L 91 L Oximetry 05/19/18 05/19/18 05/19/18 20:20 22:00 22:12 Temperature Pulse Rate 108 H 114 H Pulse Rate [ 110 H Bilateral Dorsalis Pedis] Pulse Rate [ 112 H Bilateral Radial] Respiratory 20 Rate Blood Pressure 150/89 O2 Sat by Pulse Oximetry 05/19/18 05/20/18 05/20/18 22:47 00:01 02:00 Temperature 98.2 F Pulse Rate 82 124 H 112 H Pulse Rate [ Bilateral Dorsalis Pedis] Pulse Rate [ Bilateral Radial] Respiratory 18 Rate Blood Pressure 148/103 H O2 Sat by Pulse 97 Oximetry 05/20/18 05/20/18 05/20/18 02:04 05:34 06:00 Temperature 98 F Pulse Rate 106 H 84 Pulse Rate [ Bilateral Dorsalis Pedis] Pulse Rate [ Bilateral Radial] Respiratory 18 Rate Blood Pressure 112/62 109/84 O2 Sat by Pulse 97 Oximetry
[2018-05-20 08:10] LABS: MEAN CELL VOLUME 82.2 fl (80.0-105.0); MEAN CORPUSCULAR HGB CONC 32.9 g/dl (31.0-37.0); RBC 5.96 10^6/uL (3.5-6.1); RED CELL DISTRIBUTION WIDTH 14.4 % (11.5-14.5); WHITE BLOOD COUNT 24.4 10^3/uL (4.5-11.0)
[2018-05-20 08:15] LABS: HEMOGLOBIN 16.1 g/dL (14.0-18.0)
[2018-05-20 08:19] LABS: INR 3.25; PROTHROMBIN TIME 38.3 SECONDS (9.4-12.5)
[2018-05-20] MEDS: Insulin Reg-LOW-Coverage SC SCH ×3 (08:27→17:22)
[2018-05-20] MEDS: Arformoterol 15 mcg/2 ml Inh Sol IH SCH ×2 (08:48→20:27)
[2018-05-20] MEDS: Budesonide 0.5 mg/2 ml Inhal Susp UD IH SCH ×2 (08:48→20:27)
[2018-05-20 08:58] LABS: ALB/GLOB RATIO 0.9 (1.1-1.8); ALBUMIN 3.3 g/dL (3.0-4.8); CALCIUM 8.9 mg/dL (8.4-10.5)
[2018-05-20 09:09] LABS: TOTAL IRON BINDING CAPACITY 234 ug/dL (261-462)
[2018-05-20 09:29] LABS: % IRON SATURATION 13 % (20-55); IRON 30 ug/dL (45-180)
[2018-05-20] MEDS ORDERED: Ergocalciferol 50,000 Intl Units Cap PO SCH (10:00)
[2018-05-20] MEDS ORDERED: Aztreonam 2 Gm in NS 100mL 100 ML IVPB SCH (14:45)
--- NOTE | 2018-05-20 15:33 | PN ---
DATE: 05/20/2018 PULMONARY PROGRESS NOTE REFERRING PHYSICIAN: Dr. Frazier OBJECTIVE: The patient is lying in the bed at 45 degrees, complaining about dry mouth. No headache or rhinitis. No chest pain. Pelvic pain is better. Trace leg swelling. OBJECTIVE: GENERAL: No acute distress. VITAL SIGNS: Temperature is 98, heart rate 99, respiratory is 20, blood pressure 134/78, pulse of 97% on BiPAP. HEENT: Dry mucous membranes. Crowded airway. NECK: Supple. No JVD. LUNGS: Have a few scattered rhonchi. HEART: S1, S2. ABDOMEN: Obese, soft, nontender. EXTREMITIES: Trace edema. NEUROLOGIC: Awake, alert, follows simple command. He is a paraplegic. MEDICATIONS: He is on Brovana inhaled twice a day, Coumadin 3 mg given, vitamin D 50,000 IU weekly, Ecotrin 81 mg daily insulin coverage, Levemir 10 units subcu at bedtime., metoprolol tartrate 25 mg twice a day, melatonin 3 mg at bedtime, milk of magnesia 30 mL every 4 hours prn., Pepcid 20 mg at bedtime, Pulmicort inhaled twice a day, Singulair 10 mg daily Tylenol prn., Xopenex inhaled every 6 hours prn., Zestril 20 mg every 12 hours. LABORATORY DATA: Shows hemoglobin 16.1, hematocrit 49.0, WBC 24,000, platelet is 224. Today's INR 3.25. Blood sugar 132, potassium 4.4, chloride 97, bicarbonate is 27, BUN 36, creatinine 1.8, hemoglobin A1c 10.5, calcium 8.9. Iron is 30, AST 14, ALT 24, alk phos is 100. Cholesterol 175. B12 was 546. Folate is pending. TSH is 0.75. Urine culture has gram-negative rods more than 100,000 colonies, IV of the organism is pending. CT positive. 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 We will decrease Coumadin to 2 mg daily, add oral nystatin. Continue antibiotics covering gram-negative rods. Follow up labs in the morning. Continue BiPAP while sleeping. Gastric prophylaxis. Follow up labs the morning. Thank you, we will follow with you. Yosef Dunbar MD [facility] # [id number]
[2018-05-20] MEDS ORDERED: Gentamicin 80 mg/2mL Inj. IVPB SCH (17:15)
[2018-05-20] MEDS: Nystatin 100,000 Units/ml Oral Susp 5 ml UD PO SCH ×2 (17:27→21:10)
--- NOTE | 2018-05-20 17:27 | CP.PCM.CON ---
History of Present Illness - History of Present Illness History of Present Illness: Infectious Disease Consultation: May 20, 2018 57 yo male with morbid obesity sent to [facility] for suprapubic pain. Recently at [facility] for similar issues. Frequent hospitalizations for similar issues especially at [facility]. History of MRSA and resistant E. coli. Urine cultures pending but showing Gram negative rods. On prior hospitalizations, the patient had Enterococcus and E. coli. PCN allergies. PMHx: Congestive Heart Failure, Chronic Obstructive Pulmonary Disease, Morbid Obesity, Benign Neoplasm of Spine, Paraplegia, history of multiple UTIs, left eye blindness. PSHx: Laminectomy 03/2015, Catheter placement 02/2015 Allergies: PCN - facial rash and lip swelling. Social Hx: no tobacco, EtOH, or illicit drug use. [place] Active Medications Acetaminophen (Tylenol 325mg Tab) 650 mg PO Q4H PRN PRN Reason: Pain, moderate (4-7) Last Admin: 05/20/18 13:05 Dose: 650 mg Arformoterol Tartrate (Brovana) 15 mcg IH [id number] REPLACED BY [facility] Last Admin: 05/20/18 08:48 Dose: 15 mcg Aspirin (Ecotrin) 81 mg PO DAILY REPLACED BY [facility] Last Admin: 05/20/18 09:19 Dose: 81 mg Budesonide (Pulmicort Respules) 0.5 mg IH [id number] REPLACED BY [facility] Last Admin: 05/20/18 08:48 Dose: 0.5 mg Ergocalciferol (Drisdol 50,000 Intl Units Cap) 50,000 cap PO SUN REPLACED BY [facility] Last Admin: 05/20/18 09:19 Dose: 50,000 cap Famotidine (Pepcid) 20 mg PO HS REPLACED BY [facility] Last Admin: 05/19/18 22:12 Dose: 20 mg Gentamicin Sulfate (Gentamicin) 285 mg 1.7 mg/kg (285 mg) IVPB Q8H REPLACED BY [facility]; Protocol Aztreonam (Azactam 2 Gm) 100 mls @ 100 mls/hr IVPB Q8 REPLACED BY [facility]; Protocol Stop: 05/20/18 22:59 Last Admin: 05/20/18 15:15 Dose: 100 mls/hr Aztreonam (Azactam 2 Gm) 100 mls @ 100 mls/hr IVPB Q8 REPLACED BY [facility]; Protocol Insulin Detemir (Levemir) 10 unit SC [facility] Last Admin: 12/15/18 22:15 Dose: 10 units Insulin Human Regular (Humulin R Low) 1 units SC ACHS REPLACED BY [facility]; Protocol Last Admin: 05/20/18 12:32 Dose: 5 unit Levalbuterol HCl (Xopenex) 1.25 mg IH [id number] PRN PRN Reason: Shortness of Breath Lisinopril (Zestril) 20 mg PO Q12 REPLACED BY [facility] Last Admin: 05/20/18 09:13 Dose: 20 mg Magnesium Hydroxide (Milk Of Magnesia) 30 ml PO HS PRN PRN Reason: Constipation Metoprolol Tartrate (Lopressor) 25 mg PO Q12 REPLACED BY [facility] Last Admin: 05/20/18 09:16 Dose: 25 mg Montelukast Sodium (Singulair) 10 mg PO HS REPLACED BY [facility] Last Admin: 05/19/18 22:12 Dose: 10 mg Melatonin [Melatonin (] 3 Mg (Home Med)) 3 mg PO HS REPLACED BY [facility] Nystatin (Nystatin Oral Susp) 5 ml PO QID GREG Warfarin Sodium (Coumadin) 2 mg PO 1800 GREG; Protocol Family Hx: none given ROS: No nausea, vomiting, diarrhea, headaches, dizziness, chest pain, melena, hematuria, hematemesis, hematochezia, depression, anxiety, vision loss, hearing loss, loss of consciousness, chest pain. Complains of suprapubic and abdominal pain. Past Patient History - Infectious Disease Hx of Infectious Diseases: None - Past Medical History & Family History Past Medical History?: Yes - Past Social History Smoking Status: Former Smoker - CARDIAC Hx Cardiac Disorders: Yes Hx Cardia Arrhythmia: Yes (Afib) Hx Circulatory Problems: Yes Hx Congestive Heart Failure: Yes Hx Hypercholesterolemia: Yes Hx Hypertension: Yes Hx Peripheral Edema: Yes - PULMONARY Hx Respiratory Disorders: Yes Hx Asthma: Yes Hx Chronic Obstructive Pulmonary Disease (COPD): Yes - NEUROLOGICAL Hx Neurological Disorder: Yes HX Cerebrovascular Accident: Yes Other/Comment: Paraplegia/ spinal tumor-WITH SX 2015 unable to ambulated since, weakness ble and weak hand grasps, cold b/l ankles and feet - HEENT Hx HEENT Problems: Yes Hx Blind: Yes (left eye) - RENAL Hx Chronic Kidney Disease: Yes Other/Comment: renal insuffieciency - ENDOCRINE/METABOLIC Hx Endocrine Disorders: Yes Hx Adrenal Cancer: No Hx Diabetes Insipidus: Yes Hx Diabetes Mellitus Type 1: Yes Hx Diabetes Mellitus Type 2: Yes - HEMATOLOGICAL/ONCOLOGICAL Hx Blood Disorders: No Hx Anemia: Yes Hx Cancer: No Other/Comment: sepsis - INTEGUMENTARY Hx Dermatological Problems: No Other/Comment: ABDOMINAL FOLDS MASD,BILATERAL LE SKIN DRYNESS,LARGE THIN FLAKES,LIGHT BROWN SKIN DISCOLORATION,RIGHT BIG TOE WITH FLUSHED SKIN,SWELLING.STATES NAIL WAS CLIPPED AND NEVER HEALED. - MUSCULOSKELETAL/RHEUMATOLOGICAL Hx Musculoskeletal Disorders: Yes Hx Arthritis: Yes Hx Back Pain: Yes Hx Falls: Yes Hx Spinal Stenosis: Yes Hx Unsteady Gait: Yes (bedridden hoya lift oob to chair) Other/Comment: paraplygia - GASTROINTESTINAL Hx Gastrointestinal Disorders: No Other/Comment: Morbid obesity, incontinent - GENITOURINARY/GYNECOLOGICAL Hx Genitourinary Disorders: Yes Hx Incontinence: Yes Hx Urinary Tract Infection: Yes - PSYCHIATRIC Hx Psychophysiologic Disorder: Yes Hx Depression: Yes Hx Substance Use: No - SURGICAL HISTORY Hx Surgeries: Yes Hx Musculoskeletal Surgery: Yes (RIGHT KNEE) Hx Orthopedic Surgery: Yes (BILATERAL WRIST CARPAL TUNNEL REPAIR) Other/Comment: spinal sx - ANESTHESIA Hx Anesthesia: Yes Hx Anesthesia Reactions: No Hx Malignant Hyperthermia: No Meds Allergies/Adverse Reactions: Allergies Allergy/AdvReac Type Severity Reaction Status Date / Time Penicillins Allergy Severe ANAPHYLAXIS Verified 04/12/18 17:41 - Medications Medications: Current Medications Acetaminophen (Tylenol 325mg Tab) 650 mg PO Q4H PRN PRN Reason: Pain, moderate (4-7) Last Admin: 05/20/18 13:05 Dose: 650 mg Arformoterol Tartrate (Brovana) 15 mcg IH [id number] REPLACED BY [facility] Last Admin: 05/20/18 08:48 Dose: 15 mcg Aspirin (Ecotrin) 81 mg PO DAILY REPLACED BY [facility] Last Admin: 05/20/18 09:19 Dose: 81 mg Budesonide (Pulmicort Respules) 0.5 mg IH [id number] REPLACED BY [facility] Last Admin: 05/20/18 08:48 Dose: 0.5 mg Ergocalciferol (Drisdol 50,000 Intl Units Cap) 50,000 cap PO SUN REPLACED BY [facility] Last Admin: 05/20/18 09:19 Dose: 50,000 cap Famotidine (Pepcid) 20 mg PO HS REPLACED BY [facility] Last Admin: 05/19/18 22:12 Dose: 20 mg Gentamicin Sulfate (Gentamicin) 285 mg 1.7 mg/kg (285 mg) IVPB Q8H REPLACED BY [facility]; Protocol Aztreonam (Azactam 2 Gm) 100 mls @ 100 mls/hr IVPB Q8 REPLACED BY [facility]; Protocol Stop: 05/20/18 22:59 Last Admin: 05/20/18 15:15 Dose: 100 mls/hr Aztreonam (Azactam 2 Gm) 100 mls @ 100 mls/hr IVPB Q8 REPLACED BY [facility]; Protocol Insulin Detemir (Levemir) 10 unit SC HS REPLACED BY [facility] Last Admin: 05/19/18 22:15 Dose: 10 units Insulin Human Regular (Humulin R Low) 1 units SC ACHS REPLACED BY [facility]; Protocol Last Admin: 05/20/18 12:32 Dose: 5 unit Levalbuterol HCl (Xopenex) 1.25 mg IH [id number] PRN PRN Reason: Shortness of Breath Lisinopril (Zestril) 20 mg PO Q12 REPLACED BY [facility] Last Admin: 05/20/18 09:13 Dose: 20 mg Magnesium Hydroxide (Milk Of Magnesia) 30 ml PO HS PRN PRN Reason: Constipation Metoprolol Tartrate (Lopressor) 25 mg PO Q12 REPLACED BY [facility] Last Admin: 05/20/18 09:16 Dose: 25 mg Montelukast Sodium (Singulair) 10 mg PO HS REPLACED BY [facility] Last Admin: 05/19/18 22:12 Dose: 10 mg Melatonin [Melatonin (] 3 Mg (Home Med)) 3 mg PO HS REPLACED BY [facility] Nystatin (Nystatin Oral Susp) 5 ml PO QID GREG Warfarin Sodium (Coumadin) 2 mg PO 1800 REPLACED BY [facility]; Protocol Physical Exam - Constitutional Appears: Non-toxic, No Acute Distress, Chronically Ill Additional comments: morbidly obese. - Head Exam Head Exam: ATRAUMATIC, NORMOCEPHALIC - Eye Exam Eye Exam: EOMI, PERRL Pupil Exam: NORMAL ACCOMODATION, PERRL - ENT Exam ENT Exam: Mucous Membranes Moist, Normal External Ear Exam, TM's Normal Bilaterally - Neck Exam Neck exam: Positive for: Full Rom, Normal Inspection - Respiratory Exam Respiratory Exam: Clear to Auscultation Bilateral, NORMAL BREATHING PATTERN. absent: Rales, Rhonchi, Wheezes - Cardiovascular Exam Cardiovascular Exam: REGULAR RHYTHM, RRR, +S1, +S2 - GI/Abdominal Exam GI & Abdominal Exam: Normal Bowel Sounds, Soft. absent: Distended, Tenderness - Extremities Exam Extremities exam: Negative for: joint swelling, pedal edema - Neurological Exam Neurological exam: Alert, CN II-XII Intact, Oriented x3 - Psychiatric Exam Psychiatric exam: Normal Affect, Normal Mood - Skin Skin Exam: Intact, Normal Color Results - Vital Signs Recent Vital Signs: Last Vital Signs Temp 97.8 F 05/20/18 12:00 Pulse 99 H 05/20/18 12:00 Resp 20 05/20/18 12:00 BP 134/78 05/20/18 12:00 Pulse Ox 97 05/20/18 06:00 - Labs Result Diagrams: 05/20/18 07:30 05/20/18 07:30 Labs: Laboratory Results - last 24 hr 05/19/18 05/19/18 05/20/18 17:45 21:45 01:56 WBC RBC Hgb Hct MCV MCH MCHC RDW Plt Count MPV PT INR pO2 131 H VBG pH 7.38 VBG pCO2 40.0 VBG HCO3 23.7 VBG Total CO2 24.9 VBG O2 Sat (Calc) 98.9 H VBG Base Excess -1.3 L VBG Potassium 5.3 H Sodium 128.0 L Chloride 93.0 L Glucose 505 H* Lactate 3.2 H FiO2 21.0 Potassium Carbon Dioxide Anion Gap BUN Creatinine Est GFR ( Amer) Est GFR (Non-Af Amer) POC Glucose (mg/dL) 433 H* 401 H* Random Glucose Hemoglobin A1c Calcium Iron TIBC % Saturation Total Bilirubin AST ALT Alkaline Phosphatase Total Protein Albumin Globulin Albumin/Globulin Ratio Triglycerides Cholesterol LDL Cholesterol Direct HDL Cholesterol Vitamin B12 TSH 3rd Generation Venous Blood Potassium 5.3 H 05/20/18 05/20/18 05/20/18 07:30 07:30 07:30 WBC RBC Hgb Hct MCV MCH MCHC RDW Plt Count MPV PT INR pO2 VBG pH VBG pCO2 VBG HCO3 VBG Total CO2 VBG O2 Sat (Calc) VBG Base Excess VBG Potassium Sodium 132 Chloride 97 L Glucose Lactate FiO2 Potassium 4.4 Carbon Dioxide 27 Anion Gap 12 BUN 36 H Creatinine 1.8 H Est GFR ( Amer) 47 Est GFR (Non-Af Amer) 39 POC Glucose (mg/dL) Random Glucose 381 H* D Hemoglobin A1c 10.5 H Calcium 8.9 Iron 30 L TIBC 234 L % Saturation 13 L Total Bilirubin 0.7 AST 14 L ALT 24 Alkaline Phosphatase 100 Total Protein 6.9 Albumin 3.3 Globulin 3.6 Albumin/Globulin Ratio 0.9 L Triglycerides 184 H Cholesterol 175 LDL Cholesterol Direct 119 HDL Cholesterol 26 L Vitamin B12 546 TSH 3rd Generation Venous Blood Potassium 05/20/18 05/20/18 05/20/18 07:30 07:30 07:30 WBC 24.4 H RBC 5.96 Hgb 16.1 D Hct 49.0 MCV 82.2 MCH 27.0 MCHC 32.9 RDW 14.4 Plt Count 224 MPV 11.0 PT 38.3 H INR 3.25 pO2 VBG pH VBG pCO2 VBG HCO3 VBG Total CO2 VBG O2 Sat (Calc) VBG Base Excess VBG Potassium Sodium Chloride Glucose Lactate FiO2 Potassium Carbon Dioxide Anion Gap BUN Creatinine Est GFR ( Amer) Est GFR (Non-Af Amer) POC Glucose (mg/dL) Random Glucose Hemoglobin A1c Calcium Iron TIBC % Saturation Total Bilirubin AST ALT Alkaline Phosphatase Total Protein Albumin Globulin Albumin/Globulin Ratio Triglycerides Cholesterol LDL Cholesterol Direct HDL Cholesterol Vitamin B12 TSH 3rd Generation 0.75 Venous Blood Potassium 05/20/18 05/20/18 05/20/18 07:48 11:38 16:44 WBC RBC Hgb Hct MCV MCH MCHC RDW Plt Count MPV PT INR pO2 VBG pH VBG pCO2 VBG HCO3 VBG Total CO2 VBG O2 Sat (Calc) VBG Base Excess VBG Potassium Sodium Chloride Glucose Lactate FiO2 Potassium Carbon Dioxide Anion Gap BUN Creatinine Est GFR ( Amer) Est GFR (Non-Af Amer) POC Glucose (mg/dL) 356 H 354 H 320 H Random Glucose Hemoglobin A1c Calcium Iron TIBC % Saturation Total Bilirubin AST ALT Alkaline Phosphatase Total Protein Albumin Globulin Albumin/Globulin Ratio Triglycerides Cholesterol LDL Cholesterol Direct HDL Cholesterol Vitamin B12 TSH 3rd Generation Venous Blood Potassium Assessment & Plan - Assessment and Plan (Free Text) Assessment: 57 yo male with suprapubic pain with findings of UTI with gram negative rods. The patient with history of resistent E. coli and distant history of MRSA. Aztreonam started due to the patient's PCN allergies. The culture identification is still pending. Added Gentamicin to the regimen given previous urine cultures. Supportive care. Thank you for allowing me to participate in the care of the patient, we will follow with you.
[2018-05-20] MEDS ORDERED: SODIUM CHLORIDE 0.9% IVPB SCH (18:00)
[2018-05-20] MEDS ORDERED: GENTAMICIN IVPB SCH (18:00)
[2018-05-20] MEDS ORDERED: Dextrose 50% SYRINGE Inj (50 ml) IV PRN (18:33)
[2018-05-20] MEDS: GENTAMICIN IVPB SCH (18:55)
[2018-05-20] MEDS: SODIUM CHLORIDE 0.9% IVPB SCH (18:55)
[2018-05-20] MEDS: MELATONIN 3 MG PO SCH (21:05)
[2018-05-20] MEDS: Insulin Reg-MEDIUM-Coverage SC SCH (22:05)
[2018-05-20] MEDS: Insulin Detemir 100 units/ml Vial (Levemir) SC SCH (22:09)
--- NOTE | 2018-05-21 01:26 | PN ---
DATE: 05/20/2018 SUBJECTIVE: The patient is a 57-year-old male. The patient was seen and examined on 05/20/2018 and looking comfortable. No fever. No chills. Complaining about lower abdominal pain. No headache. No dizziness. PHYSICAL EXAMINATION VITAL SIGNS: Temperature 98, heart rate 99, respiratory rate 20, blood pressure 134/78, pulse oximetry 97% on BiPAP. HEENT: Head; normocephalic, atraumatic. Eyes; PERRLA. Extraocular muscles intact. Conjunctivae clear. Nose patent. NECK: Supple. No carotid bruit. No JVD or thyromegaly. HEART: S1 and S2 positive. LUNGS: Have few scattered rhonchi. ABDOMEN: Obese, soft and nontender. EXTREMITIES: No edema. No cyanosis. NEUROLOGICAL: The patient is awake and alert. Follows simple commands. MEDICATIONS: Brovana, Coumadin, Ecotrin, Levemir, metoprolol, melatonin, Pepcid, Pulmicort, Singulair, Tylenol, Xopenex, and Zestril. LABORATORY DATA: Hemoglobin 16.1, hematocrit 49, white blood cells 24,000, platelet count 224. INR 3.25. BUN 36, creatinine 1.8, hemoglobin A1c 10.5. AST 14, ALT 24. ASSESSMENT AND PLAN: Mr. Marcus Valdovinos is a 57-year-old male with recurrent urinary tract infection, has indwelling catheter, chronic lung disease, obstructive sleep apnea syndrome, paraplegia, comorbid obesity, spinal tumor in the past, decubitus ulcer. Getting Coumadin, oral nystatin, antibiotics covering gram-negative rods. Repeat labs. Use BiPAP. Out of bed, physical therapy. Thalia Frazier MD
[2018-05-21] MEDS: Aztreonam 2 Gm in NS 100mL 100 ML IVPB SCH ×3 (05:27→23:53)
--- NOTE | 2018-05-21 06:20 | CON ---
DATE: 05/19/2018 UROLOGY CONSULTATION REASON FOR CONSULTATION: Urosepsis. HISTORY OF PRESENT ILLNESS: Mr. Valdovinos is a very pleasant gentleman, who I know quite well. There is a note in the chart that is somewhat confusing about him having a suprapubic catheter; he does not have a suprapubic catheter. He has an indwelling Ceron catheter. He has a somewhat hidden penis, see the physical exam described below. He has been coming to the office on a regular basis for quite some time. We have changed his catheter periodically. We even did cystoscopy, we have never found any malignancy. Sometimes, he has more or less debris than other times. He came in now because his catheter was not working. The [place] [facility] me that they are sending him to the emergency room. I do want to mention from the time they called me to the time he gets to the emergency room takes some while given they had to order a special stretcher and special transportation given his general body habitus, and this would definitely alter some of his care. See below because we had a discussion about further recommendation but either way, he just saw me in the office within the last few weeks for sure where we changed his catheter without difficulty. It is a difficult catheter to change, but we did not have any complications and then it was draining well and then the nurse this morning called me back and stated since overnight it was not draining well and it could be basically potential urosepsis. Lactic acid and blood work are currently on the chart. PAST MEDICAL AND SURGICAL HISTORY: Above listed. ALLERGIES: NOTED. REVIEW OF SYSTEMS: As listed above, otherwise noncontributory. SOCIAL HISTORY: He lives in a [place] [facility]. PHYSICAL EXAMINATION: GENERAL: Well-nourished male, in no apparent distress. The patient is currently resting comfortably in bed. VITAL SIGNS: Noted. ABDOMEN: Overall soft. He has a tremendous body habitus noted. His pannus is very large. His belly button is well identified. There is no suprapubic catheter with urine output. His penis is somewhat buried and hidden by his suprapubic fat region. The Ceron catheter is currently in place. He has an indwelling Ceron catheter. The CT scan is also noted, which reports the Ceron catheter is . DIAGNOSES: Urinary retention. Catheter failure. Apparently, it is an indwelling Ceron catheter . ASSESSMENT AND PLAN: In summary, this is a very pleasant 57-year-old, I know him quite well. I have discussed with him the possibility for insertion of a suprapubic catheter. There is definitely not a suprapubic catheter now. We will have to add that may be this would be easier to care for the patient. It is difficult to know what happened that it stopped working that quickly. Previous cystoscopic evaluations and even the CT scan does not show any stones, any cause for a blockage, I do not know whether it got pulled. It is extremely . At this point, he is admitted to the hospital for infection. From the urology standpoint, we are going to recommend that he keep the Ceron, maintain the antibiotics and then further plans can follow. What we would like to suggest is the possibility to consider cystostomy tube insertion, then further plans will follow. Ankit Ly MD
[2018-05-21] MEDS: GENTAMICIN IVPB SCH ×2 (06:33→17:44)
[2018-05-21] MEDS: SODIUM CHLORIDE 0.9% IVPB SCH ×2 (06:33→17:44)
[2018-05-21 07:38] LABS: INR 2.12; PROTHROMBIN TIME 24.8 SECONDS (9.4-12.5)
[2018-05-21] MEDS: Arformoterol 15 mcg/2 ml Inh Sol IH SCH ×2 (07:56→20:11)
[2018-05-21] MEDS: Budesonide 0.5 mg/2 ml Inhal Susp UD IH SCH ×2 (07:56→20:11)
[2018-05-21] MEDS: Insulin Reg-MEDIUM-Coverage SC SCH ×4 (08:33→23:50)
[2018-05-21] MEDS: Nystatin 100,000 Units/ml Oral Susp 5 ml UD PO SCH ×4 (12:15→23:52)
--- NOTE | 2018-05-21 12:35 | PN ---
DATE: 05/21/2018 PULMONARY PROGRESS NOTE REFERRING PHYSICIAN: Thalia Frazier MD. SUBJECTIVE: The patient is lying in bed. No acute distress. The patient does report wearing CPAP last night. No headache, rhinitis, cough, shortness of breath, chest pain, nausea, vomiting, or diarrhea reported. The patient does report some pelvic pain. OBJECTIVE: GENERAL: No acute distress. VITAL SIGNS: Blood pressure 123/88, pulse 85, temperature 97.4, and oxygen saturation 94. HEENT: Moist mucous membranes. Crowded airway. NECK: Supple. No JVD. LUNGS: Scattered rhonchi, few bilaterally. CARDIOPULMONARY: S1 and S2 audible. ABDOMEN: Obese, soft, some tenderness on palpation to pelvic area. EXTREMITIES: Trace edema bilaterally. NEUROLOGIC: Awake, alert, verbal, and follows simple commands. The patient is paraplegic. LABORATORY DATA: Reviewed. PT 24.8, INR 2.12, POC 227. Urine culture final shows Citrobacter freundii. MEDICATIONS: Reviewed. Tylenol 650 mg every 4 hours p.r.n. moderate pain, Brovana 15 mcg every 12 hours, aspirin 81 mg p.o. daily, ___ 2 g every 8 hours, Pulmicort 0.5 mg inhalation every 12 hours, ergocalciferol 50,000 units daily, Pepcid 20 mg at bedtime, gentamicin 285 mg every 12 hours, Levemir 10 units subcutaneously h.s., Humulin R sliding scale, Xopenex 1.25 mg every 6 hours as necessary, lisinopril 20 mg every 12 hours, milk of magnesia 30 mL p.o. at bedtime as necessary, metoprolol tartrate 45 mg every 12 hours, Singulair 10 mg at bedtime, melatonin 3 mg at bedtime, nystatin oral suspension 5 mL p.o. four times a day, Coumadin 2 mg daily IMPRESSION AND PLAN: Recurrent urinary tract infection, has indwelling catheter, chronic lung disease, obstructive sleep apnea syndrome, paraplegia secondary to spinal tumor in the past, decubiti ulcer, morbid obesity. Pulmonary point of view, continue antibiotic therapy as per Infectious Disease. We will follow up with labs in the morning. Continue bilevel positive airway pressure use at bedtime. Sleep apnea precaution. Head of bed elevated at 45 degrees. Gastric prophylaxis. The patient is currently on anticoagulation therapy. We recommend physical therapy. This patient was seen and examined with Dr. Dunbar. Discussed assessment and plan as described above. Thank you for this consult and we will follow with you. Diego Barnes APN Yosef Dunbar MD [place]
--- NOTE | 2018-05-21 13:42 | CP.PCM.APN ---
Subjective - Date & Time of Evaluation Date of Evaluation: 05/21/18 Time of Evaluation: 09:00 - Subjective Subjective: pt in bed aeing breakfast, nurse request diet change to soft. pt in no acute distress eating breakfast Review of Systems - Review of Systems All systems: reviewed and no additional remarkable complaints except Objective - Vital Signs/Intake and Output Vital Signs (last 24 hours): Temp Pulse Resp BP Pulse Ox 98.0 F 88 20 170/106 H 94 L 05/21/18 06:00 05/21/18 06:00 05/21/18 06:00 05/21/18 06:00 05/21/18 06:00 Intake and Output: 05/21/18 05/21/18 06:59 18:59 Intake Total 720 Output Total 1200 Balance -480 - Medications Medications: Current Medications Acetaminophen (Tylenol 325mg Tab) 650 mg PO Q4H PRN PRN Reason: Pain, moderate (4-7) Last Admin: 05/20/18 21:04 Dose: 650 mg Arformoterol Tartrate (Brovana) 15 mcg IH [id number] [facility] Last Admin: 05/21/18 07:56 Dose: 15 mcg Aspirin (Ecotrin) 81 mg PO DAILY [facility] Last Admin: 05/21/18 12:15 Dose: 81 mg Budesonide (Pulmicort Respules) 0.5 mg IH [id number] [facility] Last Admin: 05/21/18 07:56 Dose: 0.5 mg Ergocalciferol (Drisdol 50,000 Intl Units Cap) 50,000 cap PO SUN [facility] Last Admin: 05/20/18 09:19 Dose: 50,000 cap Famotidine (Pepcid) 20 mg PO [facility] Last Admin: 05/20/18 21:04 Dose: 20 mg Aztreonam (Azactam 2 Gm) 100 mls @ 100 mls/hr IVPB Q8 [facility]; Protocol Last Admin: 05/21/18 05:27 Dose: 100 mls/hr Gentamicin Sulfate 285 mg/ (Sodium Chloride) 107.125 mls @ 100 mls/hr IVPB Q12H [facility] Last Admin: 05/21/18 06:33 Dose: 100 mls/hr Insulin Detemir (Levemir) 10 unit SC [facility] Last Admin: 05/20/18 22:09 Dose: 10 units Insulin Human Regular (Humulin R Med) 0 units SC ACHS [facility]; Protocol Last Admin: 05/21/18 12:15 Dose: Not Given Levalbuterol HCl (Xopenex) 1.25 mg IH [id number] PRN PRN Reason: Shortness of Breath Lisinopril (Zestril) 20 mg PO Q12 [facility] Last Admin: 05/21/18 12:15 Dose: 20 mg Magnesium Hydroxide (Milk Of Magnesia) 30 ml PO HS PRN PRN Reason: Constipation Metoprolol Tartrate (Lopressor) 25 mg PO Q12 [facility] Last Admin: 05/21/18 12:14 Dose: 25 mg Montelukast Sodium (Singulair) 10 mg PO [facility] Last Admin: 05/20/18 21:10 Dose: 10 mg Melatonin [Melatonin (] 3 Mg (Home Med)) 3 mg PO [facility] Last Admin: 05/20/18 21:05 Dose: Not Given Nystatin (Nystatin Oral Susp) 5 ml PO QID [facility] Last Admin: 05/21/18 12:15 Dose: 5 ml Warfarin Sodium (Coumadin) 2 mg PO 1800 [facility]; Protocol Last Admin: 05/20/18 17:22 Dose: 2 mg - Labs Labs: 05/20/18 07:30 05/20/18 07:30 PT 24.8 SECONDS (9.4-12.5) H 05/21/18 07:00 INR 2.12 05/21/18 07:00 - Constitutional Appears: Non-toxic - Head Exam Head Exam: NORMAL INSPECTION, NORMOCEPHALIC - Eye Exam Eye Exam: PERRL Additional comments: left eye blindness - Respiratory Exam Respiratory Exam: Decreased Breath Sounds - Cardiovascular Exam Cardiovascular Exam: +S1, +S2 - Exam Additional comments: montague catheter in place - Neurological Exam Neuro motor strength exam: Left Upper Extremity: 4, Right Upper Extremity: 4 - Psychiatric Exam Psychiatric exam: Normal Affect, Normal Mood - Skin Skin Exam: Dry, Intact, Warm Assessment and Plan - Assessment and Plan (Free Text) Plan: Impressions Abdomen/Pelvis CT 05/19/18 16:47 IMPRESSION: Decompressed urinary bladder which contains Montague catheter and foci of air. Air may be secondary to recent instrumentation however cystitis cannot be excluded. Recommend correlation with urinalysis. Thickening of the rectosigmoid colon of uncertain significance. Question rectal wall thickening. Correlate clinically for possibility of colitis/proctitis. Follow-up as indicated. Additional incidental findings as above. Laboratory Results WBC 24.4 10^3/uL (4.5-11.0) H 05/20/18 07:30 RBC 5.96 10^6/uL (3.5-6.1) 05/20/18 07:30 Hgb 16.1 g/dL (14.0-18.0) D 05/20/18 07:30 Hct 49.0 % (42.0-52.0) 05/20/18 07:30 MCV 82.2 fl (80.0-105.0) 05/20/18 07:30 MCH 27.0 pg (25.0-35.0) 05/20/18 07:30 MCHC 32.9 g/dl (31.0-37.0) 05/20/18 07:30 RDW 14.4 % (11.5-14.5) 05/20/18 07:30 Plt Count 224 10^3/uL (120.0-450.0) 05/20/18 07:30 MPV 11.0 fl (7.0-11.0) 05/20/18 07:30 Gran % 87.5 % (50.0-68.0) H 05/19/18 14:45 Lymph % (Auto) 7.0 % (22.0-35.0) L 05/19/18 14:45 [place] % (Auto) 5.5 % (1.0-6.0) 05/19/18 14:45 Eos % (Auto) 0.0 % (1.5-5.0) L 05/19/18 14:45 Baso % (Auto) 0.0 % (0.0-3.0) 05/19/18 14:45 Gran # 23.39 (1.4-6.5) H 05/19/18 14:45 Lymph # (Auto) 1.9 (1.2-3.4) 05/19/18 14:45 [place] # (Auto) 1.5 (0.1-0.6) H 05/19/18 14:45 Eos # (Auto) 0.0 (0.0-0.7) 05/19/18 14:45 Baso # (Auto) 0.01 K/mm3 (0.0-2.0) 05/19/18 14:45 Neutrophils % (Manual) 87 % (50.0-70.0) H 05/19/18 14:45 Lymphocytes % (Manual) 3 % (22.0-35.0) L 05/19/18 14:45 Atypical Lymphs % 2 % (0.0-0.0) H 05/19/18 14:45 Monocytes % (Manual) 8 % (1.0-6.0) H 05/19/18 14:45 Platelet Evaluation Normal (NORMAL) 05/19/18 14:45 Large Platelets Present 05/19/18 14:45 PT 24.8 SECONDS (9.4-12.5) H 05/21/18 07:00 INR 2.12 05/21/18 07:00 pO2 131 mm/Hg (30-55) H 05/19/18 17:45 VBG pH 7.38 (7.32-7.43) 05/19/18 17:45 VBG pCO2 40.0 (40-60) 05/19/18 17:45 VBG HCO3 23.7 mmol/l (21-28) 05/19/18 17:45 VBG Total CO2 24.9 mmol.L (22-28) 05/19/18 17:45 VBG O2 Sat (Calc) 98.9 % (40-65) H 05/19/18 17:45 VBG Base Excess -1.3 mmol/L (0.0-2.0) L 05/19/18 17:45 VBG Potassium 5.3 mmol/L (3.6-5.2) H 05/19/18 17:45 Sodium 128.0 mmol/L (132-148) L 05/19/18 17:45 Chloride 93.0 mmol/L (98-107) L 05/19/18 17:45 Glucose 505 mg/dl (75-110) H* 05/19/18 17:45 Lactate 3.2 mmol/L (0.7-2.1) H 05/19/18 17:45 FiO2 21.0 % 05/19/18 17:45 Sodium 132 mmol/L (132-148) 05/20/18 07:30 Potassium 4.4 mmol/L (3.6-5.0) 05/20/18 07:30 Chloride 97 mmol/L (98-107) L 05/20/18 07:30 Carbon Dioxide 27 mmol/L (21-33) 05/20/18 07:30 Anion Gap 12 (10-20) 05/20/18 07:30 BUN 36 mg/dL (7-21) H 05/20/18 07:30 Creatinine 1.8 mg/dl (0.8-1.5) H 05/20/18 07:30 Est GFR ( Amer) 47 05/20/18 07:30 Est GFR (Non-Af Amer) 39 05/20/18 07:30 POC Glucose (mg/dL) 227 mg/dL (65-110) H 05/21/18 07:59 Random Glucose 381 mg/dL (70-110) H* D 05/20/18 07:30 Hemoglobin A1c 10.5 % (4.2-6.5) H 05/20/18 07:30 Calcium 8.9 mg/dL (8.4-10.5) 05/20/18 07:30 Iron 30 ug/dL (45-180) L 05/20/18 07:30 TIBC 234 ug/dL (261-462) L 05/20/18 07:30 % Saturation 13 % (20-55) L 05/20/18 07:30 Total Bilirubin 0.7 mg/dL (0.2-1.3) 05/20/18 07:30 AST 14 U/L (17-59) L 05/20/18 07:30 ALT 24 U/L (7-56) 05/20/18 07:30 Alkaline Phosphatase 100 U/L (38-126) 05/20/18 07:30 NT-Pro-B Natriuret Pep 802 pg/mL (0-450) H 05/19/18 15:00 Total Protein 6.9 g/dL (5.8-8.3) 05/20/18 07:30 Albumin 3.3 g/dL (3.0-4.8) 05/20/18 07:30 Globulin 3.6 gm/dL 05/20/18 07:30 Albumin/Globulin Ratio 0.9 (1.1-1.8) L 05/20/18 07:30 Triglycerides 184 mg/dL (35-160) H 05/20/18 07:30 Cholesterol 175 mg/dL (130-200) 05/20/18 07:30 LDL Cholesterol Direct 119 mg/dL (0-129) 05/20/18 07:30 HDL Cholesterol 26 mg/dL (29-60) L 05/20/18 07:30 Vitamin B12 546 pg/mL (239-931) 05/20/18 07:30 TSH 3rd Generation 0.75 mIU/mL (0.46-4.68) 05/20/18 07:30 Beta HCG, Quant Cancelled 05/19/18 14:45 Venous Blood Potassium 5.3 mmol/L (3.6-5.2) H 05/19/18 17:45 Urine Color Yellow (YELLOW) 05/19/18 15:00 Urine Appearance Cloudy (CLEAR) 05/19/18 15:00 Urine pH 6.0 (4.7-8.0) 05/19/18 15:00 Ur Specific [place] 1.020 (1.005-1.035) 05/19/18 15:00 Urine Protein 100 mg/dL (<30 mg/dL) H 05/19/18 15:00 Urine Glucose (UA) >=1000 mg/dL (NEGATIVE) 05/19/18 15:00 Urine Ketones Trace mg/dL (NEGATIVE) H 05/19/18 15:00 Urine Blood Large (NEGATIVE) H 05/19/18 15:00 Urine Nitrate Negative (NEGATIVE) 05/19/18 15:00 Urine Bilirubin Negative (NEGATIVE) 05/19/18 15:00 Urine Urobilinogen 0.2 E.U./dL (<1 E.U./dL) 05/19/18 15:00 Ur Leukocyte Esterase Moderate Ernesto/uL (NEGATIVE) H 05/19/18 15:00 Urine RBC 2 - 5 /hpf (0-2) 05/19/18 15:00 Urine WBC Tntc /hpf (0-6) 05/19/18 15:00 Ur Epithelial Cells 0 - 2 /hpf (0-5) 05/19/18 15:00 Urine Bacteria Large (NEG) 05/19/18 15:00 Microbiology 05/19/18 15:00 Urine Culture - Final Urine,Suprapubic Citrobacter Freundii 05/19/18 16:30 Blood Culture - Preliminary Blood-Venous NO GROWTH AFTER 24 HOURS 05/19/18 16:00 Blood Culture - Preliminary Blood-Venous NO GROWTH AFTER 24 HOURS 57 y rold male with pmh for morbid obesity, chf, copd, spinal neoplasm, paraplegia admitted with suprabuic pain from chronic indwelling catheter now undergoing ID and workup for urosepsis labs and micr noted Montague catheter draning yellow, cloudy urine, will speak with Dr Ly Will follow Urine culture iD and sensitivity and speak to ID Dr Vigil Labs for am to follow leukocytosis trend BPCI/TIC - BPCIA/TIC Educated pt/family on BPCIA/CIR/Med to Bed Programs: Yes Flyers given, including CMS Beneficiary letter: Yes Pt/family verbalized understanding & agreed to program: Yes
[2018-05-21 15:38] LABS: FOLATE 8.3 ng/mL
--- NOTE | 2018-05-21 18:01 | CP.PCM.PN ---
Subjective - Date & Time of Evaluation Date of Evaluation: 05/21/18 Time of Evaluation: 17:30 - Subjective Subjective: Infectious Disease Follow Up: May 21, 2018 57 yo male with morbid obesity [place] [facility] [facility] for suprapubic pain. Recently at [facility] for similar i ssues. Frequent hospitalizations for similar issues especially [place] [facility] History of MRSA and resistant E. coli. Urine cultures pending but showing Gram negative rods. On prior hospitalizations, the patient had Enterococcus and E. coli. PCN allergies. Current cultures showing Citrobacter. Objective - Vital Signs/Intake and Output Vital Signs (last 24 hours): Temp Pulse Resp BP Pulse Ox 98.8 F 87 18 138/74 94 L 05/21/18 12:00 05/21/18 14:00 05/21/18 12:00 05/21/18 14:00 05/21/18 06:00 Intake and Output: 05/21/18 05/21/18 06:59 18:59 Intake Total 720 150 Output Total 1200 Balance -480 150 - Medications Medications: Current Medications Acetaminophen (Tylenol 325mg Tab) 650 mg PO Q4H PRN PRN Reason: Pain, moderate (4-7) Last Admin: 05/20/18 21:04 Dose: 650 mg Arformoterol Tartrate (Brovana) 15 mcg IH [id number] [facility] Last Admin: 05/21/18 07:56 Dose: 15 mcg Aspirin (Ecotrin) 81 mg PO DAILY [facility] Last Admin: 05/21/18 12:15 Dose: 81 mg Budesonide (Pulmicort Respules) 0.5 mg IH [id number] [facility] Last Admin: 05/21/18 07:56 Dose: 0.5 mg Ergocalciferol (Drisdol 50,000 Intl Units Cap) 50,000 cap PO SUN [facility] Last Admin: 05/20/18 09:19 Dose: 50,000 cap Famotidine (Pepcid) 20 mg PO HS [facility] Last Admin: 05/20/18 21:04 Dose: 20 mg Aztreonam (Azactam 2 Gm) 100 mls @ 100 mls/hr IVPB Q8 [facility]; Protocol Last Admin: 05/21/18 14:46 Dose: 100 mls/hr Gentamicin Sulfate 285 mg/ (Sodium Chloride) 107.125 mls @ 100 mls/hr IVPB Q12H [facility] Last Admin: 05/21/18 17:44 Dose: 100 mls/hr Insulin Detemir (Levemir) 10 unit SC [facility] Last Admin: 05/20/18 22:09 Dose: 10 units Insulin Human Regular (Humulin R Med) 0 units SC ACHS [facility]; Protocol Last Admin: 05/21/18 17:46 Dose: 7 units Levalbuterol HCl (Xopenex) 1.25 mg IH [id number] PRN PRN Reason: Shortness of Breath Lisinopril (Zestril) 20 mg PO Q12 [facility] Last Admin: 05/21/18 12:15 Dose: 20 mg Magnesium Hydroxide (Milk Of Magnesia) 30 ml PO HS PRN PRN Reason: Constipation Metoprolol Tartrate (Lopressor) 25 mg PO Q12 [facility] Last Admin: 05/21/18 12:14 Dose: 25 mg Montelukast Sodium (Singulair) 10 mg PO [facility] Last Admin: 05/20/18 21:10 Dose: 10 mg Melatonin [Melatonin (] 3 Mg (Home Med)) 3 mg PO [facility] Last Admin: 05/20/18 21:05 Dose: Not Given Nystatin (Nystatin Oral Susp) 5 ml PO QID [facility] Last Admin: 05/21/18 17:44 Dose: 5 ml Warfarin Sodium (Coumadin) 2 mg PO 1800 [facility]; Protocol Last Admin: 05/21/18 17:44 Dose: 2 mg - Labs Labs: 05/20/18 07:30 05/20/18 07:30 PT 24.8 SECONDS (9.4-12.5) H 05/21/18 07:00 INR 2.12 05/21/18 07:00 - Constitutional Appears: Non-toxic, No Acute Distress, Chronically Ill - Head Exam Head Exam: ATRAUMATIC, NORMOCEPHALIC - Eye Exam Eye Exam: EOMI, PERRL Pupil Exam: NORMAL ACCOMODATION, PERRL - ENT Exam ENT Exam: Mucous Membranes Moist, Normal External Ear Exam, TM's Normal Bilaterally - Neck Exam Neck Exam: Full ROM, Normal Inspection - Respiratory Exam Respiratory Exam: Clear to Ausculation Bilateral, NORMAL BREATHING PATTERN. absent: Rales, Rhonchi, Wheezes - Cardiovascular Exam Cardiovascular Exam: REGULAR RHYTHM, RRR, +S1, +S2 - GI/Abdominal Exam GI & Abdominal Exam: Soft, Normal Bowel Sounds. absent: Distended, Tenderness - Extremities Exam Extremities Exam: Full ROM, Normal Inspection - Neurological Exam Neurological Exam: Alert, Awake, CN II-XII Intact, Oriented x3 - Psychiatric Exam Psychiatric exam: Normal Affect, Normal Mood - Skin Skin Exam: Intact, Normal Color Assessment and Plan - Assessment and Plan (Free Text) Assessment: 57 yo male with suprapubic pain with findings of UTI with gram negative rods. The patient with history of resistent E. coli and distant history of MRSA. Aztreonam started due to the patient's PCN allergies. The culture identification is still pending. Added Gentamicin to the regimen given previous urine cultures. Supportive care. Leukocytosis... recheck WBC. WBC at 24.4 today. Citrobacter in urine cultures. Thank you for allowing me to participate in the care of the patient, we will follow with you.
--- NOTE | 2018-05-21 22:44 | PCM.URO ---
Urology Progress Note - Objective Lab Studies: Reviewed (keyla montague would consider an spt if medically cleared) Lab Results Last 24 Hours: Laboratory Results - last 24 hr 05/20/18 05/20/18 05/21/18 07:30 21:29 07:00 PT 24.8 H INR 2.12 POC Glucose (mg/dL) 177 H Folate 8.3 05/21/18 05/21/18 05/21/18 07:59 17:33 21:43 PT INR POC Glucose (mg/dL) 227 H 328 H 275 H Folate Intake & Output: Intake & Output 05/21/18 05/21/18 05/22/18 06:59 18:59 06:59 Intake Total 720 150 Output Total 1200 Balance -480 150 Weight 346 lb Intake: Oral 720 150 Output: Urine 1200 Urethral (Montague) 1200 Other: # Bowel Movements 0 Vital Signs: Vital Signs - 24 hr 05/20/18 05/21/18 05/21/18 22:44 00:01 01:53 Temperature 97.4 F L Pulse Rate 65 105 H 85 Respiratory 20 Rate Blood Pressure 122/88 O2 Sat by Pulse 94 L Oximetry 05/21/18 05/21/18 05/21/18 05:53 06:00 10:00 Temperature 98.0 F Pulse Rate 92 H 88 115 H Respiratory 20 Rate Blood Pressure 170/106 H O2 Sat by Pulse 94 L Oximetry 05/21/18 05/21/18 05/21/18 12:00 14:00 18:00 Temperature 98.8 F Pulse Rate 97 H 87 89 Respiratory 18 Rate Blood Pressure 153/106 H 138/74 O2 Sat by Pulse Oximetry 05/21/18 05/21/18 19:25 20:13 Temperature 97.8 F Pulse Rate 89 90 Respiratory 20 Rate Blood Pressure 156/78 H 184/113 H O2 Sat by Pulse Oximetry
[2018-05-21] MEDS: Insulin Detemir 100 units/ml Vial (Levemir) SC SCH (23:51)
[2018-05-22] MEDS: MELATONIN 3 MG PO SCH (00:38)
--- NOTE | 2018-05-22 02:38 | PN ---
DATE: 05/21/2018 SUBJECTIVE: The patient is a 57-year-old male. The patient was complaining of pain in both knees. No fever. No chills. Not in acute distress. No headache or dizziness. No shortness of breath. No coughing. PHYSICAL EXAMINATION VITAL SIGNS: Temperature 98.0, pulse 88, respiratory rate 20, blood pressure 170/106, pulse oximetry 94. HEENT: Head: Normocephalic, atraumatic. Eyes: PERRLA. Extraocular muscles are intact. Conjunctivae clear. Nose patent. Mucous membranes moist. NECK: Supple. No carotid bruit. No JVD or thyromegaly. CHEST: Bilaterally symmetrical. HEART: S1 and S2, positive. LUNGS: Clear to auscultation. ABDOMEN: Soft. Bowel sounds present. No organomegaly. EXTREMITIES: No edema. No cyanosis. NEUROLOGICAL: The patient is awake and alert. Moving all 4 extremities. No focal deficit. MEDICATIONS: Tylenol, Ecotrin, Pulmicort, Pepcid, Azactam, gentamicin, insulin, lisinopril, magnesium oxide, metoprolol, melatonin, Coumadin. LABORATORY DATA: White blood cells 24.4, hemoglobin 16.1, hematocrit 49.0, platelets 224. Sodium 132, potassium 4.4, BUN 36, creatinine 1.8, glucose 318. ASSESSMENT AND PLAN: Mr. Marcus Valdovinos is a 57-year-old male with leukocytosis; renal insufficiency; hyperglycemia; degenerative joint disease; complaining about pain in knees, I put Lidoderm patch; decompressed urinary bladder, which contains Ceron catheter and foci of air. Air may be secondary to instrumentation; however, the patient has cystitis. Urologist is on the case. Comorbid obesity; congestive heart failure; chronic obstructive pulmonary disease; spinal tumor, status post surgery; paraplegia; history of accident; having indwelling Ceron catheter. Urology and Infectious Disease are on the case. Ceron catheter is draining yellow, cloudy urine. Nurse practitioner, Robina, spoke to Dr. Ankit Ly. Culture, ID, and sensitivity pending. Chronic obstructive pulmonary disease, asthma; the patient is bedridden. Atrial fibrillation, getting Coumadin. Leukocytosis is improving. Dehydration got better. Iron is therapeutic. Repeat labs. We will follow up. Thalia Frazier MD [facility] # [id number]
[2018-05-22 06:55] LABS: HEMOGLOBIN 15.2 g/dL (14.0-18.0); MEAN CELL VOLUME 83.4 fl (80.0-105.0); MEAN CORPUSCULAR HEMOGLOBIN 26.9 pg (25.0-35.0); MEAN CORPUSCULAR HGB CONC 32.2 g/dl (31.0-37.0); MEAN PLATELET VOLUME 11.1 fl (7.0-11.0); RBC 5.66 10^6/uL (3.5-6.1); RED CELL DISTRIBUTION WIDTH 14.5 % (11.5-14.5); WHITE BLOOD COUNT 10.4 10^3/uL (4.5-11.0)
[2018-05-22] MEDS: Arformoterol 15 mcg/2 ml Inh Sol IH SCH ×2 (07:10→20:53)
[2018-05-22] MEDS: Budesonide 0.5 mg/2 ml Inhal Susp UD IH SCH ×2 (07:10→20:53)
[2018-05-22 07:30] LABS: ALB/GLOB RATIO 0.9 (1.1-1.8); ALBUMIN 3.3 g/dL (3.0-4.8); ALT/SGPT 25 U/L (7-56); AST/SGOT 15 U/L (17-59); BLOOD UREA NITROGEN 20 mg/dL (7-21); GFR NON-AFRICAN AMERICAN > 60
[2018-05-22] MEDS: Aztreonam 2 Gm in NS 100mL 100 ML IVPB SCH ×3 (07:45→21:36)
[2018-05-22] MEDS: Insulin Reg-MEDIUM-Coverage SC SCH ×4 (08:13→22:26)
[2018-05-22] MEDS: Nystatin 100,000 Units/ml Oral Susp 5 ml UD PO SCH ×4 (09:22→21:37)
--- NOTE | 2018-05-22 10:48 | PN ---
DATE: 05/22/2018 UROLOGY PROGRESS NOTE See the previously dictated consult note, previously dictated procedure note. SUBJECTIVE: The patient is well known to us. He is currently resting comfortably. Urine output is noted. The Ceron catheter is draining well. DIAGNOSIS: Urinary retention and recurrent episodes of infection and Ceron catheter is draining well. Urology as follows. We would like to consider an insertion of cystoscopy due to we can obtain some kind of medical clearance. Further plans will follow . Continue the antibiotics and then we can discuss further plans. Ankit Ly MD
[2018-05-22] MEDS: GENTAMICIN IVPB SCH ×2 (12:19→18:13)
[2018-05-22] MEDS: SODIUM CHLORIDE 0.9% IVPB SCH ×2 (12:19→18:13)
--- NOTE | 2018-05-22 12:23 | PN ---
PULMONARY PROGRESS NOTE DATE: 05/22/2018 REFERRING PHYSICIAN: Thalia Frazier MD SUBJECTIVE: The patient is sitting up in bed, reports pain to the bilateral knees, reports wearing CPAP machine last night. No headache, rhinitis, cough, shortness of breath, chest pain, abdominal pain, nausea, vomiting, diarrhea, or leg swelling reported. PHYSICAL EXAMINATION: GENERAL: No acute distress. VITAL SIGNS: Blood pressure 137/93, pulse 86 and temperature 97.8. HEENT: Moist mucous membranes. Crowded airway. NECK: Supple. No JVD. LUNGS: Scattered rhonchi's bilaterally. CARDIOVASCULAR: S1 and S2 audible. ABDOMEN: Obese and soft. No organomegaly. EXTREMITIES: No bilateral lower extremity edema, able to move all extremities. NEUROLOGICAL: Awake, alert, verbal, and the patient is able to follow simple commands. MEDICATIONS: Reviewed. Tylenol 650 mg every 4 hours p.r.n. moderate pain, Brovana 15 mcg inhalation every 12 hours, aspirin 81 mg daily, Azactam 2 grams every 8 hours, Pulmicort 0.5 mg inhalation every 12 hours, ergocalciferol 50,000 units weekly, Pepcid mg at bedtime, gentamicin 285 mg every 12 hours, Levemir 10 units at bedtime, Humulin R sliding scale, Xopenex 1.25 mg every 6 hours p.r.n., lisinopril 20 mg every 12 hours, milk of magnesia 30 mL p.o. at bedtime p.r.n., metoprolol tartrate 20 mg every 12 hours, Singulair 10 mg p.o. at bedtime, melatonin 3 mg p.o. at bedtime, nystatin 5 mL p.o. four times a day, and Coumadin 2 mg p.o. daily. LABORATORY DATA: Reviewed. WBC 7.4, RBC 5.66, hemoglobin 15.2, hematocrit 47.2, and platelets 220. Sodium 135, potassium 4.1, chloride 101, carbon dioxide 30, anion gap 8, BUN 20, creatinine 0.8, GFR greater than 60, POC glucose 222, random glucose 264, calcium 9.0, total bilirubin 0.6, AST 15, ALT 25, alkaline phosphatase 83, total protein 7, albumin 3.3, globulin 3.7, and albumin-globulin ratio 0.9. IMPRESSION AND PLAN: Recurrent urinary tract infection with urinary catheter, chronic lung disease, obstructive sleep apnea syndrome, paraplegia secondary to spinal tumor in the past, decubiti ulcer, and morbid obesity. Pulmonary point of view, continue antibiotic therapy as per Infectious Disease. Continue bilevel positive airway pressure use at bedtime. Sleep apnea precaution. Head of bed elevated at 45 degrees. Gastric prophylaxis. Currently on anticoagulation therapy, pressure ulcer precaution. Continue nystatin oral for another 4 or 5 days. We recommend that patient be sitting up when eating. The patient will benefit from physical therapy. This patient was seen and examined with Dr. Dunbar. Discussed assessment and plan as described above. Thank you for this consult and we will follow with you. Diego Barnes APN Yosef Dunbar MD [place]
--- NOTE | 2018-05-22 17:00 | CP.PCM.PN ---
Subjective - Date & Time of Evaluation Date of Evaluation: 05/22/18 Time of Evaluation: 15:00 - Subjective Subjective: Infectious Disease Follow Up: May 22, 2018 57 yo male with morbid obesity sent to [facility] [place] from Jennifer at [facility] for suprapubic pain. Recently at [facility] for similar i ssues. Frequent hospitalizations for similar issues especially at [facility] [place]. History of MRSA and resistant E. coli. Urine cultures pending but showing Gram negative rods. On prior hospitalizations, the patient had Enterococcus and E. coli. PCN allergies. Current cultures showing Citrobacter. On Aztreonam and Gentamicin for antibiotic coverage. Objective - Vital Signs/Intake and Output Vital Signs (last 24 hours): Temp Pulse Resp BP Pulse Ox 98.7 F 96 H 18 121/92 H 94 L 05/22/18 12:00 05/22/18 14:00 05/22/18 12:00 05/22/18 12:00 05/21/18 06:00 Intake and Output: 05/22/18 05/22/18 06:59 18:59 Intake Total 660 Output Total 1800 Balance -1140 - Medications Medications: Current Medications Acetaminophen (Tylenol 325mg Tab) 650 mg PO Q4H PRN PRN Reason: Pain, moderate (4-7) Last Admin: 05/22/18 08:12 Dose: 650 mg Arformoterol Tartrate (Brovana) 15 mcg IH [id number] [facility] Last Admin: 05/22/18 07:10 Dose: 15 mcg Aspirin (Ecotrin) 81 mg PO DAILY [facility] Last Admin: 05/22/18 09:22 Dose: 81 mg Budesonide (Pulmicort Respules) 0.5 mg IH [id number] [facility] Last Admin: 05/22/18 07:10 Dose: 0.5 mg Ergocalciferol (Drisdol 50,000 Intl Units Cap) 50,000 cap PO SUN [facility] Last Admin: 05/20/18 09:19 Dose: 50,000 cap Famotidine (Pepcid) 20 mg PO HS [facility] Last Admin: 05/21/18 23:52 Dose: 20 mg Aztreonam (Azactam 2 Gm) 100 mls @ 100 mls/hr IVPB Q8 [facility]; Protocol Last Admin: 05/22/18 13:05 Dose: 100 mls/hr Gentamicin Sulfate 285 mg/ (Sodium Chloride) 107.125 mls @ 100 mls/hr IVPB Q12H [facility] Last Admin: 05/22/18 12:19 Dose: 100 mls/hr Insulin Detemir (Levemir) 10 unit SC [facility] Last Admin: 05/21/18 23:51 Dose: 10 units Insulin Human Regular (Humulin R Med) 0 units SC ACHS [facility]; Protocol Last Admin: 05/22/18 12:19 Dose: 5 units Levalbuterol HCl (Xopenex) 1.25 mg IH [id number] PRN PRN Reason: Shortness of Breath Lisinopril (Zestril) 20 mg PO Q12 [facility] Last Admin: 05/22/18 09:22 Dose: 20 mg Magnesium Hydroxide (Milk Of Magnesia) 30 ml PO HS PRN PRN Reason: Constipation Metoprolol Tartrate (Lopressor) 25 mg PO Q12 [facility] Last Admin: 05/22/18 09:22 Dose: 25 mg Montelukast Sodium (Singulair) 10 mg PO [facility] Last Admin: 05/21/18 23:52 Dose: 10 mg Melatonin [Melatonin (] 3 Mg (Home Med)) 3 mg PO [facility] Last Admin: 05/22/18 00:38 Dose: Not Given Nystatin (Nystatin Oral Susp) 5 ml PO QID [facility] Last Admin: 05/22/18 13:05 Dose: 5 ml Warfarin Sodium (Coumadin) 2 mg PO 1800 [facility]; Protocol Last Admin: 05/21/18 17:44 Dose: 2 mg - Labs Labs: 05/22/18 06:00 05/22/18 06:00 PT 24.8 SECONDS (9.4-12.5) H 05/21/18 07:00 INR 2.12 05/21/18 07:00 - Constitutional Appears: Non-toxic, No Acute Distress, Chronically Ill - Head Exam Head Exam: ATRAUMATIC, NORMOCEPHALIC - Eye Exam Eye Exam: EOMI, PERRL Pupil Exam: NORMAL ACCOMODATION, PERRL - ENT Exam ENT Exam: Mucous Membranes Moist, Normal External Ear Exam, TM's Normal Bilaterally - Neck Exam Neck Exam: Full ROM, Normal Inspection - Respiratory Exam Respiratory Exam: Clear to Ausculation Bilateral, NORMAL BREATHING PATTERN. absent: Rales, Rhonchi, Wheezes - Cardiovascular Exam Cardiovascular Exam: REGULAR RHYTHM, RRR, +S1, +S2 - GI/Abdominal Exam GI & Abdominal Exam: Soft, Normal Bowel Sounds. absent: Distended, Tenderness - Extremities Exam Extremities Exam: Full ROM, Normal Inspection - Neurological Exam Neurological Exam: Alert, Awake, CN II-XII Intact, Oriented x3 - Psychiatric Exam Psychiatric exam: Normal Affect, Normal Mood - Skin Skin Exam: Intact, Normal Color Assessment and Plan - Assessment and Plan (Free Text) Assessment: 57 yo male with suprapubic pain with findings of UTI with gram negative rods. The patient with history of resistent E. coli and distant history of MRSA. Aztreonam started due to the patient's PCN allergies. The culture identification is still pending. Added Gentamicin to the regimen given previous urine cultures. Supportive care. Leukocytosis... recheck WBC. WBC down to 10.4 today. Citrobacter in urine cultures. Continuing gentamicin treatment. Thank you for allowing me to participate in the care of the patient, we will follow with you.
[2018-05-22] MEDS ORDERED: Magnesium Hydroxide Susp 30 ml UD PO PRN (17:01)
[2018-05-22] MEDS: Insulin Detemir 100 units/ml Vial (Levemir) SC SCH (22:26)
--- NOTE | 2018-05-22 22:58 | PQF ---
PROVIDER RESPONSE TEXT: Provider was unable to determine a response for this query. REVIEWER QUERY TEXT: Kidney Disease, Chronic CKD Stage Chronic Kidney Disease (CKD) is documented in the Medical Record. Please specify the disease stage ( includes probable or suspected) Such as: -- Chronic kidney disease Stage 1 -- Chronic kidney disease Stage 2 -- Chronic kidney disease Stage 3 -- Chronic kidney disease Stage 4 -- Chronic kidney disease Stage 5 -- Chronic kidney disease Stage 5, requiring dialysis -- End Stage Renal Disease -- Other, please specify Stages are defined by the National Kid[employer] as follows: CKD Stage I GFR >= 90 ml / min per 1.73 m2 and persistent albuminuria CKD Stage 2 GFR between 60 and 89 with persistent albuminuria CKD Stage 3 GFR between 30 and 59 CKD Stage 4 GFR between 15 and 29 CKD Stage 5 GFR between <15 or End Stage Renal Disease The patient's Clinical Indicators include: Patient admitted with elevated BUN/creatinine. Please specify stage of CKD. Query created by: Mary Kate Falcon on 05/21/2018 11:15 AM Electronically signed by: Thalia Frazier MD 05/22/2018 10:55 PM
--- NOTE | 2018-05-23 03:06 | PN ---
DATE: 05/22/2018 SUBJECTIVE: The patient is 57-year-old male. The patient was seen and examined at the bedside on 05/22/2018, looking comfortable, complaining about knee pain. No fever. No chills. No hematuria or hematochezia. No headache. No dizziness. PHYSICAL EXAMINATION: VITAL SIGNS: Blood pressure 157/93, pulse 89, temperature 97.8. HEENT: Head normocephalic, atraumatic. Eyes; PERRLA. Extraocular muscles are intact. Conjunctivae clear. Nose patent. NECK: Supple. No carotid bruits, JVD, or thyromegaly. LUNGS: Scattered rhonchi bilaterally. CARDIOVASCULAR: Heart S1, S2 positive. ABDOMEN: Soft. Bowel sounds positive. No organomegaly. EXTREMITIES: Bilateral extremities trace edema. NEUROLOGIC: The patient is awake and alert. Obeys simple orders. MEDICATIONS: Tylenol, Brovana, aspirin, Azactam, Pepcid, Levemir, Xopenex, metoprolol, Singulair, Coumadin. LABORATORY DATA: White blood cell 7.4, hemoglobin 15.2, hematocrit 47.2. Sodium 135, potassium 4.1, BUN 20, creatinine 0.8, glucose 222, AST 15, ALT 25. ASSESSMENT AND PLAN: Mr. Marcus Valdovinos is a 57-year-old male with multiple medical problems, comorbid obesity, chronic obstructive pulmonary disease, recurrent urinary tract infection with Ceron catheter, also sleep apnea syndrome, paraplegia, status post spinal tumor in the past and accident, decubitus ulcers, now he has degenerative joint disease, knee pain, Lidoderm patch ordered. Gastric and deep venous thrombosis prophylaxis. Continue nystatin oral solution. Out of bed, physical therapy. Repeat labs. We will follow up. Thalia Frazier MD
[2018-05-23] MEDS: MELATONIN 3 MG PO SCH (05:21)
[2018-05-23] MEDS: Aztreonam 2 Gm in NS 100mL 100 ML IVPB SCH (05:42)
[2018-05-23] MEDS: GENTAMICIN IVPB SCH ×2 (06:29→17:28)
[2018-05-23] MEDS: SODIUM CHLORIDE 0.9% IVPB SCH ×2 (06:29→17:28)
[2018-05-23] MEDS: Budesonide 0.5 mg/2 ml Inhal Susp UD IH SCH (08:09)
[2018-05-23] MEDS: Arformoterol 15 mcg/2 ml Inh Sol IH SCH (08:09)
[2018-05-23 08:13] LABS: HEMOGLOBIN 16.2 g/dL (14.0-18.0); MEAN CELL VOLUME 83.3 fl (80.0-105.0); MEAN CORPUSCULAR HEMOGLOBIN 27.1 pg (25.0-35.0); MEAN CORPUSCULAR HGB CONC 32.5 g/dl (31.0-37.0); MEAN PLATELET VOLUME 11.5 fl (7.0-11.0); RBC 5.98 10^6/uL (3.5-6.1); RED CELL DISTRIBUTION WIDTH 14.4 % (11.5-14.5)
[2018-05-23] MEDS: Insulin Reg-MEDIUM-Coverage SC SCH ×3 (08:24→17:31)
[2018-05-23] MEDS: Nystatin 100,000 Units/ml Oral Susp 5 ml UD PO SCH ×3 (09:45→17:31)
[2018-05-23] MEDS ORDERED: Lidocaine 5% Patch TD SCH (10:00)
--- NOTE | 2018-05-23 13:35 | PN ---
PULMONARY PROGRESS NOTE DATE: 05/23/2018REFERRING PHYSICIAN: Thalia Frazier MD SUBJECTIVE: The patient is sitting up in bed. No acute distress. No overnight events reported. The patient reports he has not had bowel movement in 3-4 days. No headache, rhinitis, cough, shortness of breath, chest pain, abdominal pain, nausea, vomiting, leg pain or leg swelling reported. Reports he did not use CPAP machine last night. OBJECTIVE: GENERAL: No acute distress. VITAL SIGNS: Blood pressure 146/78, pulse 108, temperature 98.4, and oxygen saturation 92. HEENT: Moist mucous membranes. Crowded airway. NECK: Supple. No JVD. LUNGS: Few scattered rhonchi bilaterally. CARDIOVASCULAR: S1 and S2 audible. ABDOMEN: Obese and soft. No distention. EXTREMITIES: No bilateral extremity edema. NEUROLOGIC: Awake, alert, verbal, and able to follow commands. MEDICATIONS: Reviewed. Tylenol 650 mg every 4 hours p.r.n., Norvasc 10 mg daily, Brovana 15 mcg inhalation every 12 hours, aspirin 81 mg daily, Azactam 2 g every 8 hours, Pulmicort 0.5 mg inhalation every 12 hours, ergocalciferol 50,000 units weekly, Pepcid 20 mg at bedtime, gentamicin 285 mg every 12 hours, Levemir 10 units at bedtime, Humulin R sliding scale, Xopenex 1.25 mg every 6 hours p.r.n., Lidoderm patch daily to affected area, lisinopril 20 mg every 12 hours, milk of magnesia 30 mL p.o. three times a day p.r.n, Lopressor 25 mg every 12 hours, Singulair 10 mg at bedtime, melatonin 3 mg at bedtime, nystatin 5 mL p.o. four times a day, Coumadin 2 mg daily. LABORATORY DATA: Reviewed. WBC 14, RBC 5.98, hemoglobin 16.2, hematocrit 49.8, and platelets 291. POC glucose 308. IMPRESSION AND PLAN: Recurrent urinary tract infection with urinary catheter, chronic lung disease, obstructive sleep apnea syndrome, paraplegia secondary to spinal tumor in the past, decubiti ulcer, morbid obesity. Pulmonary point of view, continue antibiotic therapy as per Infectious Disease. Continue bilevel positive airway pressure use at bedtime. Sleep apnea precaution. Head of bed elevated at 45 degrees. Gastric prophylaxis. The patient is on anticoagulation therapy, pressure ulcer precaution. Continue nystatin oral. We will start MiraLax daily and give one dose of Dulcolax suppository for constipation. We recommend the patient is sitting up when eating and remains with head of bed elevated for 1 hour after meals. This patient will benefit from physical therapy. This patient was seen and examined with Dr. Dunbar. Discussed assessment and plan as described above. Thank you for this consult and we will follow with you. Diego Barnes APN Yosef Dunbar MD [place]
--- NOTE | 2018-05-23 14:37 | CP.PCM.PN ---
Subjective - Date & Time of Evaluation Date of Evaluation: 05/23/18 Time of Evaluation: 13:15 - Subjective Subjective: Infectious Disease Follow Up: May 23, 2018 57 yo male with morbid obesity sent to [facility] [place] from Jennifer at [facility] for suprapubic pain. Recently at [facility] for similar i ssues. Frequent hospitalizations for similar issues especially at [facility] [place]. History of MRSA and resistant E. coli. Urine cultures pending but showing Gram negative rods. On prior hospitalizations, the patient had Enterococcus and E. coli. PCN allergies. Current cultures showing Citrobacter. On Aztreonam and Gentamicin for antibiotic coverage. Aztreonam completed. On Gentamicin alone. Objective - Vital Signs/Intake and Output Vital Signs (last 24 hours): Temp Pulse Resp BP Pulse Ox 98.3 F 98 H 19 182/102 H 92 L 05/23/18 06:00 05/23/18 13:09 05/23/18 06:00 05/23/18 13:09 05/23/18 06:00 Intake and Output: 05/23/18 05/23/18 06:59 18:59 Intake Total 2400 Output Total 1400 Balance 1000 - Medications Medications: Current Medications Acetaminophen (Tylenol 325mg Tab) 650 mg PO Q4H PRN PRN Reason: Pain, moderate (4-7) Last Admin: 05/22/18 21:47 Dose: 650 mg Amlodipine Besylate (Norvasc) 10 mg PO DAILY [facility] Arformoterol Tartrate (Brovana) 15 mcg IH [id number] [facility] Last Admin: 05/23/18 08:09 Dose: 15 mcg Aspirin (Ecotrin) 81 mg PO DAILY [facility] Last Admin: 05/23/18 09:43 Dose: 81 mg Budesonide (Pulmicort Respules) 0.5 mg IH [id number] [facility] Last Admin: 05/23/18 08:09 Dose: 0.5 mg Clonidine HCl (Catapres) 0.1 mg PO DAILY PRN PRN Reason: Systolic Blood Pressure Last Admin: 05/23/18 13:09 Dose: 0.1 mg Ergocalciferol (Drisdol 50,000 Intl Units Cap) 50,000 cap PO SUN [facility] Last Admin: 05/20/18 09:19 Dose: 50,000 cap Famotidine (Pepcid) 20 mg PO [facility] Last Admin: 05/22/18 21:37 Dose: 20 mg Aztreonam (Azactam 2 Gm) 100 mls @ 100 mls/hr IVPB Q8 [facility]; Protocol Last Admin: 05/23/18 05:42 Dose: 100 mls/hr Gentamicin Sulfate 285 mg/ (Sodium Chloride) 107.125 mls @ 100 mls/hr IVPB Q12H [facility] Last Admin: 05/23/18 06:29 Dose: 100 mls/hr Insulin Detemir (Levemir) 10 unit SC HS [facility] Last Admin: 05/22/18 22:26 Dose: 10 units Insulin Human Regular (Humulin R Med) 0 units SC ACHS [facility]; Protocol Last Admin: 05/23/18 12:19 Dose: 7 units Levalbuterol HCl (Xopenex) 1.25 mg IH [id number] PRN PRN Reason: Shortness of Breath Lidocaine (Lidoderm) 2 ea TD DAILY [facility] Last Admin: 05/23/18 09:44 Dose: 2 ea Lisinopril (Zestril) 20 mg PO Q12 [facility] Last Admin: 05/23/18 09:44 Dose: 20 mg Magnesium Hydroxide (Milk Of Magnesia) 30 ml PO TID PRN PRN Reason: Constipation Last Admin: 05/22/18 17:18 Dose: 30 ml Metoprolol Tartrate (Lopressor) 25 mg PO Q12 [facility] Last Admin: 05/23/18 09:43 Dose: 25 mg Montelukast Sodium (Singulair) 10 mg PO [facility] Last Admin: 05/22/18 21:37 Dose: 10 mg Melatonin [Melatonin (] 3 Mg (Home Med)) 3 mg PO [facility] Last Admin: 05/23/18 05:21 Dose: Not Given Nystatin (Nystatin Oral Susp) 5 ml PO QID [facility] Last Admin: 05/23/18 09:45 Dose: 5 ml Polyethylene Glycol (Miralax) 17 gm PO DAILY [facility] Warfarin Sodium (Coumadin) 2 mg PO 1800 [facility]; Protocol Last Admin: 05/22/18 17:18 Dose: 2 mg - Labs Labs: 05/23/18 07:50 05/22/18 06:00 PT 24.8 SECONDS (9.4-12.5) H 05/21/18 07:00 INR 2.12 05/21/18 07:00 - Constitutional Appears: Non-toxic, No Acute Distress, Chronically Ill - Head Exam Head Exam: ATRAUMATIC, NORMOCEPHALIC - Eye Exam Eye Exam: EOMI, PERRL Pupil Exam: NORMAL ACCOMODATION, PERRL - ENT Exam ENT Exam: Mucous Membranes Moist, Normal External Ear Exam, TM's Normal Bilaterally - Neck Exam Neck Exam: Full ROM, Normal Inspection - Respiratory Exam Respiratory Exam: Clear to Ausculation Bilateral, NORMAL BREATHING PATTERN. absent: Rales, Rhonchi, Wheezes - Cardiovascular Exam Cardiovascular Exam: REGULAR RHYTHM, RRR, +S1, +S2 - GI/Abdominal Exam GI & Abdominal Exam: Soft, Normal Bowel Sounds. absent: Distended, Tenderness - Extremities Exam Extremities Exam: Full ROM, Normal Inspection - Neurological Exam Neurological Exam: Alert, Awake, CN II-XII Intact, Oriented x3 - Psychiatric Exam Psychiatric exam: Normal Affect, Normal Mood - Skin Skin Exam: Intact, Normal Color Assessment and Plan - Assessment and Plan (Free Text) Assessment: 57 yo male with suprapubic pain with findings of UTI with gram negative rods. The patient with history of resistent E. coli and distant history of MRSA. Aztreonam started due to the patient's PCN allergies. The culture identification is still pending. Added Gentamicin to the regimen given previous urine cultures. Supportive care. Leukocytosis... recheck WBC. WBC down to 10.4 and at 14.0 today. Citrobacter in urine cultures. Continuing gentamicin treatment. Aztreonam completed. Thank you for allowing me to participate in the care of the patient, we will follow with you.
[2018-05-23 18:18] VITALS: O2SAT 94
[2018-05-23 18:25] VITALS: PULSE 95
[2018-05-23 19:47] VITALS: BP 146/79; RESP 19; TEMP 97.6
[2018-05-24] MEDS ORDERED: POLYETHYLENE GLYCOL 3350 17 GM/Dose PACKET PO SCH (10:00)
--- NOTE | 2018-05-29 23:39 | PQF ---
PROVIDER RESPONSE TEXT: Provider was unable to determine a response for this query. REVIEWER QUERY TEXT: Pressure Ulcer Type Pressure ulcer is documented in the Medical Record. Please specify the location, present on admission status and/or stage: Location and laterality of pressure ulcer(s): POA status of each pressure ulcer: -- Not present on admission -- Present on admission -- Other -- Clinically unable to determine -- Unknown Stage of each pressure ulcer (National Pressure Ulcer Advisory Panel definitions): -- Stage I: Intact skin with non-blanchable redness of a localized area -- Stage II: Partial thickness skin loss involving dermis with a shallow open ulcer or an open serum -filled blister -- Stage III: Full thickness skin loss involving damage or necrosis of subcutaneous tissue -- Stage IV: Full thickness skin loss with exposed bone, tendon or muscle -- Unstageable: Full thickness tissue loss in which the base of the ulcer is covered by slough and/o r eschar in the wound bed The patient's Clinical Indicators include: Decubitus ulcer is documented in the progress notes. Need location and stage. Query created by: Lydia Quarles on 05/24/2018 9:26 AM Electronically signed by: Thalia Frazier MD 05/29/2018 11:35 PM
== END 2018-05-23 22:16 | DRG 698 ==
LOC: ED 12:28 → ERH 15:48 → 2RSO 18:44
PROVIDERS: ADMIT Internal Medicine; ATTEND Internal Medicine
PROC: 5A09357 Assistance with Respiratory Ventilation, Less than 24 Consecutive Hours, Continuous Positive Airway Pressure (ICD-10-PCS; principal; 2018-05-19)
DX: T83.518A Infection and inflammatory reaction due to other urinary catheter, initial encounter (principal); A41.9 Sepsis, unspecified organism; G82.20 Paraplegia, unspecified; E87.1 Hypo-osmolality and hyponatremia; I13.0 Hypertensive heart and chronic kidney disease with heart failure and stage 1 through stage 4 chronic kidney disease, or unspecified chronic kidney disease; Z68.43 Body mass index [BMI] 50.0-59.9, adult; E86.0 Dehydration; N30.91 Cystitis, unspecified with hematuria; I48.91 Unspecified atrial fibrillation; E11.22 Type 2 diabetes mellitus with diabetic chronic kidney disease; N18.9 Chronic kidney disease, unspecified; E11.65 Type 2 diabetes mellitus with hyperglycemia; L89.90 Pressure ulcer of unspecified site, unspecified stage; I50.9 Heart failure, unspecified; J44.9 Chronic obstructive pulmonary disease, unspecified; E66.01 Morbid (severe) obesity due to excess calories; G47.33 Obstructive sleep apnea (adult) (pediatric); G80.9 Cerebral palsy, unspecified; H54.62 Unqualified visual loss, left eye, normal vision right eye; E78.00 Pure hypercholesterolemia, unspecified; Z87.891 Personal history of nicotine dependence; Z88.0 Allergy status to penicillin; Z79.4 Long term (current) use of insulin; Z74.01 Bed confinement status; Z86.03 Personal history of neoplasm of uncertain behavior

== ENCOUNTER 2018-06-21 10:00 | Inpatient (IN) | payer MEDICARE, MEDICAID ==
[2018-05-24 09:45] VITALS: PULSE 90
[2018-06-21 10:41] LABS: INR 1.14; PARTIAL THROMBOPLASTIN TIME 34.3 Seconds (25.1-36.5); PROTHROMBIN TIME 13.1 SECONDS (9.4-12.5)
[2018-06-21] MEDS ORDERED: Lactated Ringer's 1,000 ML IV SCH (13:15)
[2018-06-21] MEDS ORDERED: Lidocaine 1% Inj (20ml) ONE (14:40)
[2018-06-21] MEDS ORDERED: Bupivacaine 0.5% 50 ML IJ ONE (14:40)
[2018-06-21] MEDS ORDERED: Iohexol 240 (50 ml) ONE ×2 (14:42→15:19)
[2018-06-21] MEDS ORDERED: Propofol 10 mg/ml Inj (20 ML) ONE (15:06)
[2018-06-21] MEDS ORDERED: Midazolam 2 MG/2 ML VIAL ONE (15:06)
[2018-06-21] MEDS ORDERED: Sodium Chloride 0.9% 1,000 ML IV SCH (15:45)
[2018-06-21] MEDS ORDERED: Ciprofloxacin 400mg/200ml D5W 400 MG/200 ML BAG IVPB STA (16:04)
[2018-06-21] MEDS ORDERED: Ciprofloxacin 400mg/200ml D5W IVPB ONE (16:10)
[2018-06-21] MEDS ORDERED: Ciprofloxacin 400mg/200ml D5W 400 MG/200 ML BAG IVPB ONE (16:11)
[2018-06-21] MEDS: Oxycodone/Acetaminophen 5/325 mg Tab PO PRN (16:15)
[2018-06-21] MEDS ORDERED: Oxycodone/Acetaminophen 5/325 mg Tab ONE (16:21)
--- NOTE | 2018-06-21 16:31 | RAD ---
Date of service: 06/21/2018 PROCEDURE: Fluoroscopy up to 1 hr HISTORY: CYSTOGRAM COMPARISON: TECHNIQUE: Fluoroscopy was provided in the operating room. 43.4 sec of fluoro time. Cumulative dose 27.22 mGy. Four images were provided FINDINGS: The study shows a Ceron catheter in the bladder with opacification of the bladder with contrast. There are no focal abnormality seen IMPRESSION: As above
--- NOTE | 2018-06-21 18:48 | HP ---
DATE OF EXAM: 06/21/2018 UROLOGY ADMISSION NOTE REASON FOR THE ADMISSION: To insert a suprapubic catheter. HISTORY OF PRESENT ILLNESS: A very pleasant gentleman with retention. He has a hidden penis and his body habitus is such that it is becoming seemingly difficult to change his catheter and also is beginning to have an urethral erosion with hypospadias, so we have discussed options. Also, he is a good candidate for surgical repair of the hypospadias and he is not able to urinate and is not getting much better, so we are going to give it a try to insert a cystostomy tube in. I explained to the patient it is very, very difficult, but we are going to do our best with a little sedation anesthesia. PAST MEDICAL AND SURGICAL HISTORY: As listed in the chart, he is a patient of Dr. Frazier. MEDICATIONS: He is on Lovenox. He is on Lopressor. He is on albuterol, Spiriva, Zestril, Coumadin. REVIEW OF SYSTEMS: As listed above, noncontributory. PHYSICAL EXAMINATION GENERAL: Body habitus is noted. VITAL SIGNS: Noted. ABDOMEN: Noted. He has a normal male phallus and it is completely retracted underneath his skin folds. We can see the pictures, took pictures for the chart. DIAGNOSES: Retention, voiding dysfunction, and multiple medical issues. PLAN: He is off the Coumadin with planning for a cystostomy tube . I explained to the patient the risks, benefits, and treatment alternatives at length. We are going to plan to proceed. Ankit Ly MD
[2018-06-21] MEDS ORDERED: Verapamil 2 ML ONE (18:49)
[2018-06-21] MEDS ORDERED: Digoxin 500 mcg/2ml (0.5 mg/2ml) Inj ONE (18:53)
[2018-06-21] MEDS ORDERED: Digoxin 500 mcg/2ml (0.5 mg/2ml) Inj IVP ONE (18:55)
[2018-06-21] MEDS ORDERED: Metoprolol 1 mg/ml Inj ONE (19:00)
[2018-06-21] MEDS ORDERED: Metoprolol 1 mg/ml Inj IVP ONE (19:00)
[2018-06-21 19:11] LABS: PROTHROMBIN TIME 15.6 SECONDS (9.4-12.5)
[2018-06-21 19:12] LABS: INR 1.36
[2018-06-21 19:14] LABS: BASO # 0.01 K/mm3 (0.0-2.0); BASO % 0.1 % (0.0-3.0); EOS % 0.2 % (1.5-5.0); GRAN # 15.32 (1.4-6.5); GRAN % 96.8 % (50.0-68.0); HEMOGLOBIN 16.1 g/dL (14.0-18.0); LYMPH # 0.4 (1.2-3.4); LYMPH % 2.5 % (22.0-35.0); MEAN CELL VOLUME 84.4 fl (80.0-105.0); MEAN CORPUSCULAR HEMOGLOBIN 27.3 pg (25.0-35.0); MEAN CORPUSCULAR HGB CONC 32.3 g/dl (31.0-37.0); MEAN PLATELET VOLUME 11.3 fl (7.0-11.0); MONO # 0.1 (0.1-0.6); MONO % 0.4 % (1.0-6.0); PLATELET COUNT 187 10^3/uL (120.0-450.0); RED CELL DISTRIBUTION WIDTH 14.5 % (11.5-14.5); WHITE BLOOD COUNT 15.8 10^3/uL (4.5-11.0)
[2018-06-21 19:18] LABS: BAND 5 % (0-2); BASOPHIL 1 % (0.0-1.0); EOSINOPHIL 1 % (0.0-3.0); LARGE PLATELETS PRESENT; LYMPHOCYTE 4 % (22.0-35.0); METAMYELOCYTE 4 %; NEUTROPHIL 85 % (50.0-70.0); PLATELET ESTIMATE NORMAL (NORMAL)
[2018-06-21 19:41] LABS: ALB/GLOB RATIO 1.1 (1.1-1.8); ALBUMIN 3.6 g/dL (3.0-4.8); ALT/SGPT 30 U/L (7-56); AST/SGOT 31 U/L (17-59); BLOOD UREA NITROGEN 11 mg/dL (7-21); GFR NON-AFRICAN AMERICAN > 60
--- NOTE | 2018-06-21 19:41 | PCM.RRT ---
<Lacho Elizabeth - Last Filed: 06/21/18 19:49> [employer] Nurse Assessment - Situation Date: 06/21/18 Time [employer] was called: 18:15 Room Number: recovery [employer] Reason for Call: Tachycardia [employer] Called By: RN - Respiratory Oxygen Delivery Method: Nasal Cannula @L/min Was the Patient Intubated?: No Was the Patient Placed on a Ventilator?: No I.Reason for [employer] - A) Acute Change in Patient: Subjective: Pt is a 57yo male who experienced tachycardia, SVT and subsequently atrial flutter after having a procedure in the OR for cystostomy. - Neurological Status (Select all that apply): Responsive - Constitutional Appears: No Acute Distress - Head Head Exam: ATRAUMATIC, NORMOCEPHALIC - Eyes Eye Exam: EOMI - Respiratory Exam Respiratory Exam: absent: Accessory Muscle Use - Cardiovascular Exam Cardiovascular Exam: Irregular Rhythm, +S1, +S2 - GI/Abdominal Exam GI & Abdominal Exam: Soft, Normal Bowel Sounds - Neurological Exam Neurological Exam: Alert, Awake, Oriented x3 - Extremities Exam Extremities Exam: Full ROM, Pedal Edema Plan - Assessment of Findings&Treatment Plan Atrial Flutter - Dr Nunez was notified of her patient's condition - Pt was given adenosine 6, then adenosine 12 - pt was also given metoprolol, and cardizem - pt was placed on a diltiazem drip - pt had a fever of 100.2F - Dr Olvera was updated, requested a CT scan when pt is more stable - Dr Del Toro was present during the rapid - Dr Vigil, Infectious disease consulted Pt seen, examined, assessment and plan discussed with Dr Luis Eduardo Elizabeth PGY1, Internal Medicine Resident <Dexter Hoff - Last Filed: 06/22/18 11:55> Attending/Attestation - Attestation I have personally seen and examined this patient.: Yes I have fully participated in the care of the patient.: Yes I have reviewed all pertinent clinical information, including history, physical exam and plan: Yes
[2018-06-21 19:51] LABS: TROPONIN I 0.02 ng/mL
[2018-06-21] MEDS: diltiaZEM IVPB 100mg in NS 100 ML IV SCH (20:10)
[2018-06-21] MEDS: diltiaZEM IVPB 100mg in NS 100 ML IV PRN (20:10)
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
[2018-06-21] MEDS ORDERED: Levalbuterol 1.25 MG/3 ML Inhal Soln UD IH PRN (21:06)
--- NOTE | 2018-06-21 21:25 | CON ---
DATE: 06/21/2018 SERVICE: Cardiology. REASON FOR CONSULTATION: Followup SVT, atrial flutter with rapid rate, cardiac evaluation. BRIEF CLINICAL HISTORY: This is a 57-year-old male from the senior care bed bound, history of hypospadias, hidden penis, admitted here for suprapubic cystostomy. The patient went suprapubic cystostomy, in post anesthesia and recovery room the patient developed SVT, called to reevaluate the patient, heart rate was 150. The patient was little bit shivering and the blood pressure was 90. Prior to my arrival, the patient was given adenosine then I gave three doses of 2.5 of verapamil and then digoxin and 5 mg of IV and the heart rate came to 100 also cardiac was done. EKG done stat that shows atrial flutter with 2:1 conduction. Now, the patient's blood pressure came to 100/60 and the heart rate 113. The patient is being wheeled to ICU. The patient denied any chest pain, shortness of breath, any palpitations. PAST MEDICAL HISTORY: Significant for recurrent urinary tract infection, possible atrial fibrillation, cerebral palsy, congestive heart failure, hypertension, peripheral edema, asthma, cerebrovascular accident, spinal tumor, paralysis, unable to ambulate, bedridden since the patient has back surgery, blind of the left eye, diabetes, history of multiple times sepsis source being the urinary tract infection, history of COPD, history of back pain, multiple comorbidity. CURRENT MEDICATIONS: The patient is on Coumadin at home, Levemir, Ecotrin, vitamin D, melatonin, acetaminophen, milk of magnesia, and metoprolol. ALLERGIES: THE PATIENT IS ALLERGIC TO PENICILLIN. REVIEW OF SYSTEMS: As per HPI. PHYSICAL EXAMINATION: VITAL SIGNS: Height of the patient is 5 feet 9 inches, weight of the patient 345 pounds, body mass index 50 kg/m2. Rest of the vitals temperature afebrile, heart rate 150, and blood pressure 90/60. HEENT: PERRLA intact. NECK: Supple. No carotid bruit or thyromegaly. CHEST: Clear to auscultation. HEART: S1 and S2 regular. ABDOMEN: Soft. EXTREMITIES: Clubbing and cyanosis negative. LABORATORY DATA: INR 1.36. Rest of the labs are pending. IMPRESSION: A 57-year-old morbidly obese male with past medical history significant for diabetes, hypertension, hyperlipidemia, history of atrial fibrillation, bed bound, spinal surgery, chronic obstructive pulmonary disease, obstructive sleep apnea, multiple urinary tract infection, hypospadias, status post suprapubic cystostomy, postop patient went into atrial fibrillation/flutter with heart rate 150. So far, the patient got 0.25 mg digoxin, verapamil 2.5 mg times three, and Lopressor 5 mg rate is controlled to 100. The patient is going to wheel to ICU. We will start Cardizem drip. We will get echo to assess LV function, TSH, lipid profile. Further recommendations will depend on the hospital course. We will follow with you. Depending upon further blood workup, rule out sepsis, source could be the urinary tract infection may be treat underlying septic condition. Thank you Dr. Frazier for providing us this opportunity in taking care of the patient, Marcus Valdovinos. Yosef Del Toro MD
[2018-06-21] MEDS: Insulin Reg-LOW-Coverage SC SCH (21:29)
[2018-06-21] MEDS: Levalbuterol 1.25 MG/3 ML Inhal Soln UD IH SCH (22:35)
[2018-06-21] MEDS: Sodium Chloride 0.9% 1,000 ML IV SCH (23:00)
[2018-06-22] MEDS: Oxycodone/Acetaminophen 5/325 mg Tab PO PRN
[2018-06-22] MEDS ORDERED: Magnesium Sulfate 2 gm/50 ml 2 GM/50 ML BAG IVPB ONE (01:16)
[2018-06-22] MEDS: Levalbuterol 1.25 MG/3 ML Inhal Soln UD IH SCH ×4 (02:07→19:56)
[2018-06-22] MEDS: diltiaZEM IVPB 100mg in NS 100 ML IV SCH (02:53)
[2018-06-22] MEDS: diltiaZEM IVPB 100mg in NS 100 ML IV PRN ×2 (02:53→10:20)
[2018-06-22 05:22] VITALS: BMI 54.9
[2018-06-22] MEDS ORDERED: Influenza Vaccine 60 mcg/0.5 mL SYR (4YR UP) IM ONE (05:22)
[2018-06-22] MEDS ORDERED: Pneumococcal 23-Valent Vaccine IM ONE (05:22)
[2018-06-22 07:03] LABS: INR 1.31; PROTHROMBIN TIME 15.2 SECONDS (9.4-12.5)
[2018-06-22 07:07] LABS: BASO # 0.04 K/mm3 (0.0-2.0); BASO % 0.1 % (0.0-3.0); GRAN # 56.15 (1.4-6.5); GRAN % 94.9 % (50.0-68.0); HEMOGLOBIN 16.7 g/dL (14.0-18.0); LYMPH % 1.6 % (22.0-35.0); MEAN CELL VOLUME 83.9 fl (80.0-105.0); MEAN CORPUSCULAR HEMOGLOBIN 27.1 pg (25.0-35.0); MEAN CORPUSCULAR HGB CONC 32.3 g/dl (31.0-37.0); MEAN PLATELET VOLUME 12.6 fl (7.0-11.0); MONO % 3.4 % (1.0-6.0); PLATELET COUNT 154 10^3/uL (120.0-450.0); RBC 6.16 10^6/uL (3.5-6.1); RED CELL DISTRIBUTION WIDTH 14.8 % (11.5-14.5)
[2018-06-22] MEDS: Sodium Chloride 0.9% 1,000 ML IV SCH ×2 (07:33→22:30)
[2018-06-22 07:56] LABS: WHITE BLOOD COUNT 59.2 10^3/uL (4.5-11.0)
[2018-06-22 07:58] LABS: ALBUMIN 3.4 g/dL (3.0-4.8); CALCIUM 8.8 mg/dL (8.4-10.5)
[2018-06-22 08:00] LABS: TROPONIN I 0.23 ng/mL
[2018-06-22] MEDS ORDERED: Pantoprazole 40 mg EC Tab PO SCH (08:00)
--- NOTE | 2018-06-22 08:40 | RAD ---
HISTORY: baseline cxr COMPARISON: Chest x-ray performed 02/01/18 TECHNIQUE: Chest, one view. FINDINGS: Examination limited by habitus and hypoinflation. LUNGS: Medial right lower lobe opacity may reflect atelectasis/infiltrate. Please note that chest x-ray has limited sensitivity for the detection of pulmonary masses. PLEURA: No significant pleural effusion identified. No definite pneumothorax . CARDIOVASCULAR: Cardiomegaly. Atherosclerotic calcifications present. OSSEOUS STRUCTURES: Degenerative changes of the spine. VISUALIZED UPPER ABDOMEN: Unremarkable. OTHER FINDINGS: None. IMPRESSION: Cardiomegaly. Hypoinflation. Medial right lower lobe opacity may reflect atelectasis/infiltrate.
[2018-06-22] MEDS: Insulin Reg-LOW-Coverage SC SCH (08:45)
--- NOTE | 2018-06-22 09:03 | CARD ---
APPROVED REPORT Date of service: 06/21/2018 EKG Measurement Heart [id number] [id number] <Conclusion> Sinus tachycardia Marked ST abnormality, possible lateral subendocardial injury Abnormal ECG
--- NOTE | 2018-06-22 09:32 | CARD ---
APPROVED REPORT Date of service: 06/22/2018 EKG Measurement Heart [id number] <Conclusion> Sinus tachycardia Possible Anterior infarct, age undetermined Abnormal ECG
[2018-06-22 09:50] LABS: EOSINOPHIL 1 % (0.0-3.0); MONOCYTE 1 % (1.0-6.0); NEUTROPHIL 70 % (50.0-70.0)
[2018-06-22 09:51] LABS: BAND 28 % (0-2); PLATELET ESTIMATE NORMAL (NORMAL)
[2018-06-22] MEDS ORDERED: Insulin Regular 100 UNITS in Sodium Chloride 0.9% 99 ML IV PRN (09:55)
[2018-06-22] MEDS ORDERED: Dextrose 50% SYRINGE Inj (50 ml) IV PRN (09:55)
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
--- NOTE | 2018-06-22 10:12 | CP.CCUPN ---
<Apollo López - Last Filed: 06/22/18 10:12> CCU Subjective - Physician Review Subjective (Free Text): 06/22/18 10:11 Apollo López PGY1 Critical Care Progress Note Patient seen and examined at bedside this morning. HR continues to be elevated ranging from 110-130. Patient had two episodes of vomiting this AM, will keep NPO for now. Will start insulin drip due to sugars in the 300s. Denies CP, palpitations, SOB and headaches. CCU Objective - Vital Signs / Intake & Output Vital Signs (Last 4 hours): Vital Signs Pulse Resp BP Pulse Ox 06/22/18 08:30 120/66 06/22/18 08:29 114 H 30 H 93 L 06/22/18 08:20 108 H 27 H 94 L 06/22/18 08:10 108 H 28 H 96 06/22/18 08:01 112 H 30 H 92/48 L 94 L 06/22/18 08:00 111 H 28 H 95 06/22/18 07:50 111 H 29 H 96 06/22/18 07:40 114 H 29 H 92 L 06/22/18 07:32 117 H 30 H 95/62 L 92 L 06/22/18 07:30 92 L 06/22/18 07:20 92 L 06/22/18 07:10 114 H 30 H 90 L 06/22/18 07:00 114 H 28 H 93 L 06/22/18 06:50 107 H 25 H 92 L 06/22/18 06:40 110 H 32 H 94 L 06/22/18 06:30 110 H 25 H 116/70 94 L 06/22/18 06:20 106 H 22 95 Intake and Output (Last 8hrs): Intake & Output 06/21/18 06/22/18 06/22/18 22:59 06:59 14:59 Intake Total 10 2470 Output Total 220 Balance 10 2250 Weight 371 lb 14.4 oz 371 lb 14.4 oz Intake: IV 10 1470 Left Antecubital 1380 Oral 900 Tube Feeding 0 TPN/PPN 0 Blood Product 0 Lipid 0 Albumin 0 Other 100 Output: Drainage 95 Suprapubic Cystostomy 95 Tube Urine 125 Urethral ([place]) 125 Stool 0 Urine/Stool Mix 0 Emesis 0 Oral Regurgitation 0 Other 0 Other: Voiding Method Indwelling Catheter # Voids Urethral ([place]) 0 # Bowel Movements 0 - Physical Exam Head: Positive for: Atraumatic, Normocephalic Pupils: Positive for: PERRL Extroacular Muscles: Positive for: EOMI Conjunctiva: Positive for: Normal Mouth: Positive for: Moist Mucous Membranes Pharnyx: Positive for: Normal. Negative for: EXUDATE Nose (External): Positive for: Atraumatic Nose (Internal): Positive for: Normal Inspection Neck: Positive for: Normal Range of Motion Respiratory/Chest: Positive for: Clear to Auscultation. Negative for: Accessory Muscle Use, Wheezes Cardiovascular: Positive for: Normal S1, S2, Tachycardic Abdomen: Positive for: Normal Bowel Sounds, Other (globular abdomen ). Negative for: Tenderness, Guarding Upper Extremity: Positive for: Normal Inspection, Normal ROM, NORMAL PULSES. Negative for: Edema Lower Extremity: Positive for: Normal Inspection, NORMAL PULSES. Negative for: CALF TENDERNESS, Erythema Neurological: Positive for: CN II-XII Intact, Speech Normal, Motor Func Grossly Intact, Normal Sensory Function Skin: Positive for: Warm, Normal Color Psychiatric: Positive for: Alert, Oriented x 3 - Medications Active Medications: Active Medications Generic Name Dose Route Start Last Admin Trade Name Freq PRN Reason Stop Dose Admin Dextrose 0 ml 06/22/18 09:55 Dextrose 50% Inj IV STAT PRN Hypoglycemia Protocol Protocol Fentanyl 25 mcg 06/21/18 13:11 Fentanyl IV Q5M PRN Pain, moderate (4-7) Sodium Chloride 1,000 mls @ 100 mls/hr 06/21/18 23:00 06/22/18 07:33 Sodium Chloride 0.9% IV 100 mls/hr .Q10H GREG Administration Meropenem 250 mg/ Sodium 100 mls @ 100 mls/hr 06/22/18 07:30 06/22/18 08:49 Chloride IVPB 06/27/18 07:31 100 mls/hr Q12H GREG Administration Protocol diltiaZEM IVPB 100mg in NS 100 mls @ 5 mls/hr 06/21/18 22:00 06/22/18 02:53 Cardizem 100mg In Ns IV 15 mg/hr .Q20H PRN 15 mls/hr TITRATE PER MD ORDER Administration Protocol 5 MG/HR Dextrose 1,000 mls @ 0 mls/hr 06/22/18 09:55 Dextrose 5% In Water 1000 Ml IV .Q0M PRN Hypoglycemia Protocol Protocol Per Protocol Insulin Human Regular 100 100 mls @ 2 mls/hr 06/22/18 09:55 units/ Sodium Chloride IV .Q24H PRN TITRATE PER MD ORDER Protocol 2 UNITS/HR Insulin Detemir 12 unit 06/22/18 22:00 Levemir SC HS GREG Insulin Human Regular 0 units 06/21/18 22:00 06/22/18 08:45 Humulin R Low SC 5 u ACHS GREG Administration Protocol Levalbuterol HCl 1.25 mg 06/21/18 20:00 06/22/18 08:02 Xopenex IH Not Given [id number] Metoprolol Tartrate 25 mg 06/22/18 10:00 06/22/18 05:44 Lopressor PO 25 mg BID GREG Administration Oxycodone/Acetaminophen 1 tab 06/21/18 16:34 06/22/18 00:00 Percocet 5/325 Mg Tab PO 06/24/18 16:35 1 tab Q6H PRN Administration Pain, moderate (4-7) Pantoprazole Sodium 40 mg 06/22/18 10:15 Protonix Inj IVP DAILY [facility] Tiotropium [place] 18 mcg 06/22/18 10:00 Spiriva IH DAILY [facility] - Patient Studies Lab Studies: Lab Studies 06/22/18 06/22/18 06/22/18 Range/Units 07:39 06:15 06:15 WBC (4.5-11.0) 10^3/uL RBC (3.5-6.1) 10^6/uL Hgb (14.0-18.0) g/dL Hct (42.0-52.0) % MCV (80.0-105.0) fl MCH (25.0-35.0) pg MCHC (31.0-37.0) g/dl RDW (11.5-14.5) % Plt Count (120.0-450.0) 10^3/uL MPV (7.0-11.0) fl Gran % (50.0-68.0) % Lymph % (Auto) (22.0-35.0) % Hart % (Auto) (1.0-6.0) % Eos % (Auto) (1.5-5.0) % Baso % (Auto) (0.0-3.0) % Gran # (1.4-6.5) Lymph # (Auto) (1.2-3.4) Hart # (Auto) (0.1-0.6) Eos # (Auto) (0.0-0.7) Baso # (Auto) (0.0-2.0) K/mm3 Neutrophils % (Manual) (50.0-70.0) % Band Neutrophils % (0-2) % Lymphocytes % (Manual) (22.0-35.0) % Monocytes % (Manual) Eosinophils % (Manual) (0.0-3.0) % Basophils % (Manual) (0.0-1.0) % Metamyelocytes % % Platelet Evaluation (NORMAL) Large Platelets PT 15.2 H (9.4-12.5) SECONDS INR 1.31 APTT (25.1-36.5) Seconds Sodium (132-148) mmol/L Potassium (3.6-5.0) mmol/L Chloride (98-107) mmol/L Carbon Dioxide (21-33) mmol/L Anion Gap (10-20) BUN (7-21) mg/dL Creatinine (0.8-1.5) mg/dl Est GFR ( Amer) Est GFR (Non-Af Amer) POC Glucose (mg/dL) 380 H (65-110) mg/dL Random Glucose (70-110) mg/dL Calcium (8.4-10.5) mg/dL Phosphorus (2.5-4.5) mg/dL Magnesium (1.7-2.2) mg/dL Total Bilirubin (0.2-1.3) mg/dL AST (17-59) U/L ALT (7-56) U/L Alkaline Phosphatase (38-126) U/L Troponin I ng/mL Total Protein (5.8-8.3) g/dL Albumin (3.0-4.8) g/dL Globulin gm/dL Albumin/Globulin Ratio (1.1-1.8) Triglycerides (35-160) mg/dL Cholesterol (130-200) mg/dL LDL Cholesterol Direct (0-129) mg/dL HDL Cholesterol (29-60) mg/dL TSH 3rd Generation 0.79 (0.46-4.68) mIU/mL 06/22/18 06/22/18 06/21/18 Range/Units 06:15 06:15 23:35 WBC 59.2 H* D (4.5-11.0) 10^3/uL RBC 6.16 H (3.5-6.1) 10^6/uL Hgb 16.7 (14.0-18.0) g/dL Hct 51.7 (42.0-52.0) % MCV 83.9 (80.0-105.0) fl MCH 27.1 (25.0-35.0) pg MCHC 32.3 (31.0-37.0) g/dl RDW 14.8 H (11.5-14.5) % Plt Count 154 (120.0-450.0) 10^3/uL MPV 12.6 H (7.0-11.0) fl Gran % 94.9 H (50.0-68.0) % Lymph % (Auto) 1.6 L (22.0-35.0) % Hart % (Auto) 3.4 (1.0-6.0) % Eos % (Auto) 0.0 L (1.5-5.0) % Baso % (Auto) 0.1 (0.0-3.0) % Gran # 56.15 H (1.4-6.5) Lymph # (Auto) 1.0 L (1.2-3.4) Hart # (Auto) 2.0 H (0.1-0.6) Eos # (Auto) 0.0 (0.0-0.7) Baso # (Auto) 0.04 (0.0-2.0) K/mm3 Neutrophils % (Manual) 70 (50.0-70.0) % Band Neutrophils % 28 H* (0-2) % Lymphocytes % (Manual) TEST NOT PERFORMED (22.0-35.0) % Monocytes % (Manual) 1 Eosinophils % (Manual) 1 (0.0-3.0) % Basophils % (Manual) (0.0-1.0) % Metamyelocytes % % Platelet Evaluation Normal (NORMAL) Large Platelets PT (9.4-12.5) SECONDS INR APTT (25.1-36.5) Seconds Sodium 134 (132-148) mmol/L Potassium 4.5 (3.6-5.0) mmol/L Chloride 99 (98-107) mmol/L Carbon Dioxide 19 L (21-33) mmol/L Anion Gap 20 (10-20) BUN 17 (7-21) mg/dL Creatinine 2.0 H (0.8-1.5) mg/dl Est GFR ( Amer) 42 Est GFR (Non-Af Amer) 34 POC Glucose (mg/dL) (65-110) mg/dL Random Glucose 369 H* D (70-110) mg/dL Calcium 8.8 (8.4-10.5) mg/dL Phosphorus 3.4 (2.5-4.5) mg/dL Magnesium 1.9 (1.7-2.2) mg/dL Total Bilirubin 1.2 (0.2-1.3) mg/dL AST 49 (17-59) U/L ALT 34 (7-56) U/L Alkaline Phosphatase 105 (38-126) U/L Troponin I 0.23 H* D 0.12 D ng/mL Total Protein 6.7 (5.8-8.3) g/dL Albumin 3.4 (3.0-4.8) g/dL Globulin 3.3 gm/dL Albumin/Globulin Ratio 1.0 L (1.1-1.8) Triglycerides 161 H (35-160) mg/dL Cholesterol 167 (130-200) mg/dL LDL Cholesterol Direct 102 (0-129) mg/dL HDL Cholesterol 22 L (29-60) mg/dL TSH 3rd Generation (0.46-4.68) mIU/mL 06/21/18 06/21/18 06/21/18 Range/Units 21:27 19:31 18:42 WBC (4.5-11.0) 10^3/uL RBC (3.5-6.1) 10^6/uL Hgb (14.0-18.0) g/dL Hct (42.0-52.0) % MCV (80.0-105.0) fl MCH (25.0-35.0) pg MCHC (31.0-37.0) g/dl RDW (11.5-14.5) % Plt Count (120.0-450.0) 10^3/uL MPV (7.0-11.0) fl Gran % (50.0-68.0) % Lymph % (Auto) (22.0-35.0) % Hart % (Auto) (1.0-6.0) % Eos % (Auto) (1.5-5.0) % Baso % (Auto) (0.0-3.0) % Gran # (1.4-6.5) Lymph # (Auto) (1.2-3.4) Hart # (Auto) (0.1-0.6) Eos # (Auto) (0.0-0.7) Baso # (Auto) (0.0-2.0) K/mm3 Neutrophils % (Manual) (50.0-70.0) % Band Neutrophils % (0-2) % Lymphocytes % (Manual) (22.0-35.0) % Monocytes % (Manual) Eosinophils % (Manual) (0.0-3.0) % Basophils % (Manual) (0.0-1.0) % Metamyelocytes % % Platelet Evaluation (NORMAL) Large Platelets PT 15.6 H (9.4-12.5) SECONDS INR 1.36 APTT (25.1-36.5) Seconds Sodium 136 (132-148) mmol/L Potassium 3.8 (3.6-5.0) mmol/L Chloride 99 (98-107) mmol/L Carbon Dioxide 26 (21-33) mmol/L Anion Gap 14 (10-20) BUN 11 (7-21) mg/dL Creatinine 1.0 (0.8-1.5) mg/dl Est GFR ( Amer) > 60 Est GFR (Non-Af Amer) > 60 POC Glucose (mg/dL) 264 H (65-110) mg/dL Random Glucose 268 H (70-110) mg/dL Calcium 9.0 (8.4-10.5) mg/dL Phosphorus (2.5-4.5) mg/dL Magnesium 1.6 L (1.7-2.2) mg/dL Total Bilirubin 1.4 H (0.2-1.3) mg/dL AST 31 (17-59) U/L ALT 30 (7-56) U/L Alkaline Phosphatase 158 H D (38-126) U/L Troponin I 0.02 D ng/mL Total Protein 7.0 (5.8-8.3) g/dL Albumin 3.6 (3.0-4.8) g/dL Globulin 3.4 gm/dL Albumin/Globulin Ratio 1.1 (1.1-1.8) Triglycerides (35-160) mg/dL Cholesterol (130-200) mg/dL LDL Cholesterol Direct (0-129) mg/dL HDL Cholesterol (29-60) mg/dL TSH 3rd Generation (0.46-4.68) mIU/mL 06/21/18 06/21/18 06/21/18 Range/Units 18:42 10:20 10:15 WBC 15.8 H (4.5-11.0) 10^3/uL RBC 5.90 (3.5-6.1) 10^6/uL Hgb 16.1 (14.0-18.0) g/dL Hct 49.8 (42.0-52.0) % MCV 84.4 (80.0-105.0) fl MCH 27.3 (25.0-35.0) pg MCHC 32.3 (31.0-37.0) g/dl RDW 14.5 (11.5-14.5) % Plt Count 187 (120.0-450.0) 10^3/uL MPV 11.3 H (7.0-11.0) fl Gran % 96.8 H (50.0-68.0) % Lymph % (Auto) 2.5 L (22.0-35.0) % Hart % (Auto) 0.4 L (1.0-6.0) % Eos % (Auto) 0.2 L (1.5-5.0) % Baso % (Auto) 0.1 (0.0-3.0) % Gran # 15.32 H (1.4-6.5) Lymph # (Auto) 0.4 L (1.2-3.4) Hart # (Auto) 0.1 (0.1-0.6) Eos # (Auto) 0.0 (0.0-0.7) Baso # (Auto) 0.01 (0.0-2.0) K/mm3 Neutrophils % (Manual) 85 H (50.0-70.0) % Band Neutrophils % 5 H (0-2) % Lymphocytes % (Manual) 4 L (22.0-35.0) % Monocytes % (Manual) TEST NOT PERFORMED Eosinophils % (Manual) 1 (0.0-3.0) % Basophils % (Manual) 1 (0.0-1.0) % Metamyelocytes % 4 % Platelet Evaluation Normal (NORMAL) Large Platelets Present PT 13.1 H (9.4-12.5) SECONDS INR 1.14 APTT 34.3 (25.1-36.5) Seconds Sodium (132-148) mmol/L Potassium (3.6-5.0) mmol/L Chloride (98-107) mmol/L Carbon Dioxide (21-33) mmol/L Anion Gap (10-20) BUN (7-21) mg/dL Creatinine (0.8-1.5) mg/dl Est GFR ( Amer) Est GFR (Non-Af Amer) POC Glucose (mg/dL) 370 H (65-110) mg/dL Random Glucose (70-110) mg/dL Calcium (8.4-10.5) mg/dL Phosphorus (2.5-4.5) mg/dL Magnesium (1.7-2.2) mg/dL Total Bilirubin (0.2-1.3) mg/dL AST (17-59) U/L ALT (7-56) U/L Alkaline Phosphatase (38-126) U/L Troponin I ng/mL Total Protein (5.8-8.3) g/dL Albumin (3.0-4.8) g/dL Globulin gm/dL Albumin/Globulin Ratio (1.1-1.8) Triglycerides (35-160) mg/dL Cholesterol (130-200) mg/dL LDL Cholesterol Direct (0-129) mg/dL HDL Cholesterol (29-60) mg/dL TSH 3rd Generation (0.46-4.68) mIU/mL Laboratory Results - last 24 hr 06/21/18 06/21/18 06/21/18 10:15 10:20 18:42 WBC 15.8 H RBC 5.90 Hgb 16.1 Hct 49.8 MCV 84.4 MCH 27.3 MCHC 32.3 RDW 14.5 Plt Count 187 MPV 11.3 H Gran % 96.8 H Lymph % (Auto) 2.5 L Hart % (Auto) 0.4 L Eos % (Auto) 0.2 L Baso % (Auto) 0.1 Gran # 15.32 H Lymph # (Auto) 0.4 L Hart # (Auto) 0.1 Eos # (Auto) 0.0 Baso # (Auto) 0.01 Neutrophils % (Manual) 85 H Band Neutrophils % 5 H Lymphocytes % (Manual) 4 L Monocytes % (Manual) TEST NOT PERFORMED Eosinophils % (Manual) 1 Basophils % (Manual) 1 Metamyelocytes % 4 Platelet Evaluation Normal Large Platelets Present PT 13.1 H INR 1.14 APTT 34.3 Sodium Potassium Chloride Carbon Dioxide Anion Gap BUN Creatinine Est GFR ( Amer) Est GFR (Non-Af Amer) POC Glucose (mg/dL) 370 H Random Glucose Calcium Phosphorus Magnesium Total Bilirubin AST ALT Alkaline Phosphatase Troponin I Total Protein Albumin Globulin Albumin/Globulin Ratio Triglycerides Cholesterol LDL Cholesterol Direct HDL Cholesterol TSH 3rd Generation 06/21/18 06/21/18 06/21/18 18:42 19:31 21:27 WBC RBC Hgb Hct MCV MCH MCHC RDW Plt Count MPV Gran % Lymph % (Auto) Hart % (Auto) Eos % (Auto) Baso % (Auto) Gran # Lymph # (Auto) Hart # (Auto) Eos # (Auto) Baso # (Auto) Neutrophils % (Manual) Band Neutrophils % Lymphocytes % (Manual) Monocytes % (Manual) Eosinophils % (Manual) Basophils % (Manual) Metamyelocytes % Platelet Evaluation Large Platelets PT 15.6 H INR 1.36 APTT Sodium 136 Potassium 3.8 Chloride 99 Carbon Dioxide 26 Anion Gap 14 BUN 11 Creatinine 1.0 Est GFR ( Amer) > 60 Est GFR (Non-Af Amer) > 60 POC Glucose (mg/dL) 264 H Random Glucose 268 H Calcium 9.0 Phosphorus Magnesium 1.6 L Total Bilirubin 1.4 H AST 31 ALT 30 Alkaline Phosphatase 158 H D Troponin I 0.02 D Total Protein 7.0 Albumin 3.6 Globulin 3.4 Albumin/Globulin Ratio 1.1 Triglycerides Cholesterol LDL Cholesterol Direct HDL Cholesterol TSH 3rd Generation 06/21/18 06/22/18 06/22/18 23:35 06:15 06:15 WBC 59.2 H* D RBC 6.16 H Hgb 16.7 Hct 51.7 MCV 83.9 MCH 27.1 MCHC 32.3 RDW 14.8 H Plt Count 154 MPV 12.6 H Gran % 94.9 H Lymph % (Auto) 1.6 L Hart % (Auto) 3.4 Eos % (Auto) 0.0 L Baso % (Auto) 0.1 Gran # 56.15 H Lymph # (Auto) 1.0 L Hart # (Auto) 2.0 H Eos # (Auto) 0.0 Baso # (Auto) 0.04 Neutrophils % (Manual) 70 Band Neutrophils % 28 H* Lymphocytes % (Manual) TEST NOT PERFORMED Monocytes % (Manual) 1 Eosinophils % (Manual) 1 Basophils % (Manual) Metamyelocytes % Platelet Evaluation Normal Large Platelets PT INR APTT Sodium 134 Potassium 4.5 Chloride 99 Carbon Dioxide 19 L Anion Gap 20 BUN 17 Creatinine 2.0 H Est GFR ( Amer) 42 Est GFR (Non-Af Amer) 34 POC Glucose (mg/dL) Random Glucose 369 H* D Calcium 8.8 Phosphorus 3.4 Magnesium 1.9 Total Bilirubin 1.2 AST 49 ALT 34 Alkaline Phosphatase 105 Troponin I 0.12 D 0.23 H* D Total Protein 6.7 Albumin 3.4 Globulin 3.3 Albumin/Globulin Ratio 1.0 L Triglycerides 161 H Cholesterol 167 LDL Cholesterol Direct 102 HDL Cholesterol 22 L TSH 3rd Generation 06/22/18 06/22/18 06/22/18 06:15 06:15 07:39 WBC RBC Hgb Hct MCV MCH MCHC RDW Plt Count MPV Gran % Lymph % (Auto) Hart % (Auto) Eos % (Auto) Baso % (Auto) Gran # Lymph # (Auto) Hart # (Auto) Eos # (Auto) Baso # (Auto) Neutrophils % (Manual) Band Neutrophils % Lymphocytes % (Manual) Monocytes % (Manual) Eosinophils % (Manual) Basophils % (Manual) Metamyelocytes % Platelet Evaluation Large Platelets PT 15.2 H INR 1.31 APTT Sodium Potassium Chloride Carbon Dioxide Anion Gap BUN Creatinine Est GFR ( Amer) Est GFR (Non-Af Amer) POC Glucose (mg/dL) 380 H Random Glucose Calcium Phosphorus Magnesium Total Bilirubin AST ALT Alkaline Phosphatase Troponin I Total Protein Albumin Globulin Albumin/Globulin Ratio Triglycerides Cholesterol LDL Cholesterol Direct HDL Cholesterol TSH 3rd Generation 0.79 Radiology Impressions: Radiology Impressions Fluoroscopy 06/21/18 15:32 IMPRESSION: As above Chest X-Ray 06/21/18 23:35 IMPRESSION: Cardiomegaly. Hypoinflation. Medial right lower lobe opacity may reflect atelectasis/infiltrate. 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 Being monitored in the ICU for atrial flutter with RVR and sepsis 2/2 UTI. Plan: Neuro -maintain normothermia -AAO x3, moving extremities spontaneously past midline Cardiovascular Atrial flutter with RVR -Maintain MAP >65 -Continue with Cardizem drip, currently at rate of 15 mics -metoprolol 25 BID -Holding Coumadin/plavix/aspirin due to hematuria and potential bleed from cystotomy site -echo pending Genitourinary -S/P cystotomy on 06/21/18 -Maintain urine output and fluid intake Pulmonary -Keep O2 sat >95% -Continue with spiriva, xopenex Infectious disease Sepsis 2/2 UTI -WBC of 59 today -merrem day 1 -procalc pending -urine/blood culture pending -CT abdomen and pelvic once patient is stable Renal RAEANN -Cr is 2 from 1 yesterday -NS @ 100cc/hr -will monitor, likely 2/2 previous hypotensive episode Hematology/onc -Holding Coumadin/plavix/aspirin due to hematuria and potential bleed from cystotomy site -will resume heparin ppx as per urology recc's when safe GI -Protonix for GI prophylaxis -NPO due to nausea and vomiting Endocrine -insulin drip due to uncontrolled sugars Patient seen and examined with attending, Dr. Eckert <Flakito Eckert - Last Filed: 06/22/18 14:37> CCU Objective - Vital Signs / Intake & Output Vital Signs (Last 4 hours): Vital Signs Pulse Resp BP Pulse Ox 06/22/18 08:30 120/66 06/22/18 08:29 114 H 30 H 93 L 06/22/18 08:20 108 H 27 H 94 L 06/22/18 08:10 108 H 28 H 96 06/22/18 08:01 112 H 30 H 92/48 L 94 L 06/22/18 08:00 111 H 28 H 95 06/22/18 07:50 111 H 29 H 96 06/22/18 07:40 114 H 29 H 92 L 06/22/18 07:32 117 H 30 H 95/62 L 92 L 06/22/18 07:30 92 L 06/22/18 07:20 92 L Intake and Output (Last 8hrs): Intake & Output 06/21/18 06/22/18 06/22/18 22:59 06:59 14:59 Intake Total 10 2470 Output Total 220 Balance 10 2250 Weight 371 lb 14.4 oz 371 lb 14.4 oz Intake: IV 10 1470 Left Antecubital 1380 Oral 900 Tube Feeding 0 TPN/PPN 0 Blood Product 0 Lipid 0 Albumin 0 Other 100 Output: Drainage 95 Suprapubic Cystostomy 95 Tube Urine 125 Urethral ([place]) 125 Stool 0 Urine/Stool Mix 0 Emesis 0 Oral Regurgitation 0 Other 0 Other: Voiding Method Indwelling Catheter # Voids Urethral ([place]) 0 # Bowel Movements 0 - Medications Active Medications: Active Medications Generic Name Dose Route Start Last Admin Trade Name Freq PRN Reason Stop Dose Admin Dextrose 0 ml 06/22/18 09:55 Dextrose 50% Inj IV STAT PRN Hypoglycemia Protocol Protocol Fentanyl 25 mcg 06/21/18 13:11 Fentanyl IV Q5M PRN Pain, moderate (4-7) Sodium Chloride 1,000 mls @ 100 mls/hr 06/21/18 23:00 06/22/18 07:33 Sodium Chloride 0.9% IV 100 mls/hr .Q10H GREG Administration Meropenem 250 mg/ Sodium 100 mls @ 100 mls/hr 06/22/18 07:30 06/22/18 08:49 Chloride IVPB 06/27/18 07:31 100 mls/hr Q12H GREG Administration Protocol diltiaZEM IVPB 100mg in NS 100 mls @ 5 mls/hr 06/21/18 22:00 06/22/18 10:20 Cardizem 100mg In Ns IV 5 mg/hr .Q20H PRN 5 mls/hr TITRATE PER MD ORDER Administration Protocol 5 MG/HR Dextrose 1,000 mls @ 0 mls/hr 06/22/18 09:55 Dextrose 5% In Water 1000 Ml IV .Q0M PRN Hypoglycemia Protocol Protocol Per Protocol Insulin Human Regular 100 100 mls @ 2 mls/hr 06/22/18 09:55 units/ Sodium Chloride IV .Q24H PRN TITRATE PER MD ORDER Protocol 2 UNITS/HR Insulin Detemir 12 unit 06/22/18 22:00 Levemir SC [facility] Levalbuterol HCl 1.25 mg 06/21/18 20:00 06/22/18 08:02 Xopenex IH Not Given [id number] GREG Metoprolol Tartrate 25 mg 06/22/18 10:00 06/22/18 05:44 Lopressor PO 25 mg BID GREG Administration Oxycodone/Acetaminophen 1 tab 06/21/18 16:34 06/22/18 00:00 Percocet 5/325 Mg Tab PO 06/24/18 16:35 1 tab Q6H PRN Administration Pain, moderate (4-7) Pantoprazole Sodium 40 mg 06/22/18 10:15 Protonix Inj IVP DAILY [facility] Tiotropium [place] 18 mcg 06/22/18 10:00 Spiriva IH DAILY GREG - Patient Studies Lab Studies: Lab Studies 06/22/18 06/22/18 06/22/18 Range/Units 07:39 06:15 06:15 WBC (4.5-11.0) 10^3/uL RBC (3.5-6.1) 10^6/uL Hgb (14.0-18.0) g/dL Hct (42.0-52.0) % MCV (80.0-105.0) fl MCH (25.0-35.0) pg MCHC (31.0-37.0) g/dl RDW (11.5-14.5) % Plt Count (120.0-450.0) 10^3/uL MPV (7.0-11.0) fl Gran % (50.0-68.0) % Lymph % (Auto) (22.0-35.0) % Hart % (Auto) (1.0-6.0) % Eos % (Auto) (1.5-5.0) % Baso % (Auto) (0.0-3.0) % Gran # (1.4-6.5) Lymph # (Auto) (1.2-3.4) Hart # (Auto) (0.1-0.6) Eos # (Auto) (0.0-0.7) Baso # (Auto) (0.0-2.0) K/mm3 Neutrophils % (Manual) (50.0-70.0) % Band Neutrophils % (0-2) % Lymphocytes % (Manual) (22.0-35.0) % Monocytes % (Manual) Eosinophils % (Manual) (0.0-3.0) % Basophils % (Manual) (0.0-1.0) % Metamyelocytes % % Platelet Evaluation (NORMAL) Large Platelets PT 15.2 H (9.4-12.5) SECONDS INR 1.31 Sodium (132-148) mmol/L Potassium (3.6-5.0) mmol/L Chloride (98-107) mmol/L Carbon Dioxide (21-33) mmol/L Anion Gap (10-20) BUN (7-21) mg/dL Creatinine (0.8-1.5) mg/dl Est GFR ( Amer) Est GFR (Non-Af Amer) POC Glucose (mg/dL) 380 H (65-110) mg/dL Random Glucose (70-110) mg/dL Calcium (8.4-10.5) mg/dL Phosphorus (2.5-4.5) mg/dL Magnesium (1.7-2.2) mg/dL Total Bilirubin (0.2-1.3) mg/dL AST (17-59) U/L ALT (7-56) U/L Alkaline Phosphatase (38-126) U/L Troponin I ng/mL Total Protein (5.8-8.3) g/dL Albumin (3.0-4.8) g/dL Globulin gm/dL Albumin/Globulin Ratio (1.1-1.8) Triglycerides (35-160) mg/dL Cholesterol (130-200) mg/dL LDL Cholesterol Direct (0-129) mg/dL HDL Cholesterol (29-60) mg/dL TSH 3rd Generation 0.79 (0.46-4.68) mIU/mL 06/22/18 06/22/18 06/21/18 Range/Units 06:15 06:15 23:35 WBC 59.2 H* D (4.5-11.0) 10^3/uL RBC 6.16 H (3.5-6.1) 10^6/uL Hgb 16.7 (14.0-18.0) g/dL Hct 51.7 (42.0-52.0) % MCV 83.9 (80.0-105.0) fl MCH 27.1 (25.0-35.0) pg MCHC 32.3 (31.0-37.0) g/dl RDW 14.8 H (11.5-14.5) % Plt Count 154 (120.0-450.0) 10^3/uL MPV 12.6 H (7.0-11.0) fl Gran % 94.9 H (50.0-68.0) % Lymph % (Auto) 1.6 L (22.0-35.0) % Hart % (Auto) 3.4 (1.0-6.0) % Eos % (Auto) 0.0 L (1.5-5.0) % Baso % (Auto) 0.1 (0.0-3.0) % Gran # 56.15 H (1.4-6.5) Lymph # (Auto) 1.0 L (1.2-3.4) Hart # (Auto) 2.0 H (0.1-0.6) Eos # (Auto) 0.0 (0.0-0.7) Baso # (Auto) 0.04 (0.0-2.0) K/mm3 Neutrophils % (Manual) 70 (50.0-70.0) % Band Neutrophils % 28 H* (0-2) % Lymphocytes % (Manual) TEST NOT PERFORMED (22.0-35.0) % Monocytes % (Manual) 1 Eosinophils % (Manual) 1 (0.0-3.0) % Basophils % (Manual) (0.0-1.0) % Metamyelocytes % % Platelet Evaluation Normal (NORMAL) Large Platelets PT (9.4-12.5) SECONDS INR Sodium 134 (132-148) mmol/L Potassium 4.5 (3.6-5.0) mmol/L Chloride 99 (98-107) mmol/L Carbon Dioxide 19 L (21-33) mmol/L Anion Gap 20 (10-20) BUN 17 (7-21) mg/dL Creatinine 2.0 H (0.8-1.5) mg/dl Est GFR ( Amer) 42 Est GFR (Non-Af Amer) 34 POC Glucose (mg/dL) (65-110) mg/dL Random Glucose 369 H* D (70-110) mg/dL Calcium 8.8 (8.4-10.5) mg/dL Phosphorus 3.4 (2.5-4.5) mg/dL Magnesium 1.9 (1.7-2.2) mg/dL Total Bilirubin 1.2 (0.2-1.3) mg/dL AST 49 (17-59) U/L ALT 34 (7-56) U/L Alkaline Phosphatase 105 (38-126) U/L Troponin I 0.23 H* D 0.12 D ng/mL Total Protein 6.7 (5.8-8.3) g/dL Albumin 3.4 (3.0-4.8) g/dL Globulin 3.3 gm/dL Albumin/Globulin Ratio 1.0 L (1.1-1.8) Triglycerides 161 H (35-160) mg/dL Cholesterol 167 (130-200) mg/dL LDL Cholesterol Direct 102 (0-129) mg/dL HDL Cholesterol 22 L (29-60) mg/dL TSH 3rd Generation (0.46-4.68) mIU/mL 06/21/18 06/21/18 06/21/18 Range/Units 21:27 19:31 18:42 WBC (4.5-11.0) 10^3/uL RBC (3.5-6.1) 10^6/uL Hgb (14.0-18.0) g/dL Hct (42.0-52.0) % MCV (80.0-105.0) fl MCH (25.0-35.0) pg MCHC (31.0-37.0) g/dl RDW (11.5-14.5) % Plt Count (120.0-450.0) 10^3/uL MPV (7.0-11.0) fl Gran % (50.0-68.0) % Lymph % (Auto) (22.0-35.0) % Hart % (Auto) (1.0-6.0) % Eos % (Auto) (1.5-5.0) % Baso % (Auto) (0.0-3.0) % Gran # (1.4-6.5) Lymph # (Auto) (1.2-3.4) Hart # (Auto) (0.1-0.6) Eos # (Auto) (0.0-0.7) Baso # (Auto) (0.0-2.0) K/mm3 Neutrophils % (Manual) (50.0-70.0) % Band Neutrophils % (0-2) % Lymphocytes % (Manual) (22.0-35.0) % Monocytes % (Manual) Eosinophils % (Manual) (0.0-3.0) % Basophils % (Manual) (0.0-1.0) % Metamyelocytes % % Platelet Evaluation (NORMAL) Large Platelets PT 15.6 H (9.4-12.5) SECONDS INR 1.36 Sodium 136 (132-148) mmol/L Potassium 3.8 (3.6-5.0) mmol/L Chloride 99 (98-107) mmol/L Carbon Dioxide 26 (21-33) mmol/L Anion Gap 14 (10-20) BUN 11 (7-21) mg/dL Creatinine 1.0 (0.8-1.5) mg/dl Est GFR ( Amer) > 60 Est GFR (Non-Af Amer) > 60 POC Glucose (mg/dL) 264 H (65-110) mg/dL Random Glucose 268 H (70-110) mg/dL Calcium 9.0 (8.4-10.5) mg/dL Phosphorus (2.5-4.5) mg/dL Magnesium 1.6 L (1.7-2.2) mg/dL Total Bilirubin 1.4 H (0.2-1.3) mg/dL AST 31 (17-59) U/L ALT 30 (7-56) U/L Alkaline Phosphatase 158 H D (38-126) U/L Troponin I 0.02 D ng/mL Total Protein 7.0 (5.8-8.3) g/dL Albumin 3.6 (3.0-4.8) g/dL Globulin 3.4 gm/dL Albumin/Globulin Ratio 1.1 (1.1-1.8) Triglycerides (35-160) mg/dL Cholesterol (130-200) mg/dL LDL Cholesterol Direct (0-129) mg/dL HDL Cholesterol (29-60) mg/dL TSH 3rd Generation (0.46-4.68) mIU/mL 06/21/18 Range/Units 18:42 WBC 15.8 H (4.5-11.0) 10^3/uL RBC 5.90 (3.5-6.1) 10^6/uL Hgb 16.1 (14.0-18.0) g/dL Hct 49.8 (42.0-52.0) % MCV 84.4 (80.0-105.0) fl MCH 27.3 (25.0-35.0) pg MCHC 32.3 (31.0-37.0) g/dl RDW 14.5 (11.5-14.5) % Plt Count 187 (120.0-450.0) 10^3/uL MPV 11.3 H (7.0-11.0) fl Gran % 96.8 H (50.0-68.0) % Lymph % (Auto) 2.5 L (22.0-35.0) % Hart % (Auto) 0.4 L (1.0-6.0) % Eos % (Auto) 0.2 L (1.5-5.0) % Baso % (Auto) 0.1 (0.0-3.0) % Gran # 15.32 H (1.4-6.5) Lymph # (Auto) 0.4 L (1.2-3.4) Hart # (Auto) 0.1 (0.1-0.6) Eos # (Auto) 0.0 (0.0-0.7) Baso # (Auto) 0.01 (0.0-2.0) K/mm3 Neutrophils % (Manual) 85 H (50.0-70.0) % Band Neutrophils % 5 H (0-2) % Lymphocytes % (Manual) 4 L (22.0-35.0) % Monocytes % (Manual) TEST NOT PERFORMED Eosinophils % (Manual) 1 (0.0-3.0) % Basophils % (Manual) 1 (0.0-1.0) % Metamyelocytes % 4 % Platelet Evaluation Normal (NORMAL) Large Platelets Present PT (9.4-12.5) SECONDS INR Sodium (132-148) mmol/L Potassium (3.6-5.0) mmol/L Chloride (98-107) mmol/L Carbon Dioxide (21-33) mmol/L Anion Gap (10-20) BUN (7-21) mg/dL Creatinine (0.8-1.5) mg/dl Est GFR ( Amer) Est GFR (Non-Af Amer) POC Glucose (mg/dL) (65-110) mg/dL Random Glucose (70-110) mg/dL Calcium (8.4-10.5) mg/dL Phosphorus (2.5-4.5) mg/dL Magnesium (1.7-2.2) mg/dL Total Bilirubin (0.2-1.3) mg/dL AST (17-59) U/L ALT (7-56) U/L Alkaline Phosphatase (38-126) U/L Troponin I ng/mL Total Protein (5.8-8.3) g/dL Albumin (3.0-4.8) g/dL Globulin gm/dL Albumin/Globulin Ratio (1.1-1.8) Triglycerides (35-160) mg/dL Cholesterol (130-200) mg/dL LDL Cholesterol Direct (0-129) mg/dL HDL Cholesterol (29-60) mg/dL TSH 3rd Generation (0.46-4.68) mIU/mL Laboratory Results - last 24 hr 06/21/18 06/21/18 06/21/18 18:42 18:42 19:31 WBC 15.8 H RBC 5.90 Hgb 16.1 Hct 49.8 MCV 84.4 MCH 27.3 MCHC 32.3 RDW 14.5 Plt Count 187 MPV 11.3 H Gran % 96.8 H Lymph % (Auto) 2.5 L Hart % (Auto) 0.4 L Eos % (Auto) 0.2 L Baso % (Auto) 0.1 Gran # 15.32 H Lymph # (Auto) 0.4 L Hart # (Auto) 0.1 Eos # (Auto) 0.0 Baso # (Auto) 0.01 Neutrophils % (Manual) 85 H Band Neutrophils % 5 H Lymphocytes % (Manual) 4 L Monocytes % (Manual) TEST NOT PERFORMED Eosinophils % (Manual) 1 Basophils % (Manual) 1 Metamyelocytes % 4 Platelet Evaluation Normal Large Platelets Present PT 15.6 H INR 1.36 Sodium 136 Potassium 3.8 Chloride 99 Carbon Dioxide 26 Anion Gap 14 BUN 11 Creatinine 1.0 Est GFR ( Amer) > 60 Est GFR (Non-Af Amer) > 60 POC Glucose (mg/dL) Random Glucose 268 H Calcium 9.0 Phosphorus Magnesium 1.6 L Total Bilirubin 1.4 H AST 31 ALT 30 Alkaline Phosphatase 158 H D Troponin I 0.02 D Total Protein 7.0 Albumin 3.6 Globulin 3.4 Albumin/Globulin Ratio 1.1 Triglycerides Cholesterol LDL Cholesterol Direct HDL Cholesterol TSH 3rd Generation 06/21/18 06/21/18 06/22/18 21:27 23:35 06:15 WBC 59.2 H* D RBC 6.16 H Hgb 16.7 Hct 51.7 MCV 83.9 MCH 27.1 MCHC 32.3 RDW 14.8 H Plt Count 154 MPV 12.6 H Gran % 94.9 H Lymph % (Auto) 1.6 L Hart % (Auto) 3.4 Eos % (Auto) 0.0 L Baso % (Auto) 0.1 Gran # 56.15 H Lymph # (Auto) 1.0 L Hart # (Auto) 2.0 H Eos # (Auto) 0.0 Baso # (Auto) 0.04 Neutrophils % (Manual) 70 Band Neutrophils % 28 H* Lymphocytes % (Manual) TEST NOT PERFORMED Monocytes % (Manual) 1 Eosinophils % (Manual) 1 Basophils % (Manual) Metamyelocytes % Platelet Evaluation Normal Large Platelets PT INR Sodium Potassium Chloride Carbon Dioxide Anion Gap BUN Creatinine Est GFR ( Amer) Est GFR (Non-Af Amer) POC Glucose (mg/dL) 264 H Random Glucose Calcium Phosphorus Magnesium Total Bilirubin AST ALT Alkaline Phosphatase Troponin I 0.12 D Total Protein Albumin Globulin Albumin/Globulin Ratio Triglycerides Cholesterol LDL Cholesterol Direct HDL Cholesterol TSH 3rd Generation 06/22/18 06/22/18 06/22/18 06:15 06:15 06:15 WBC RBC Hgb Hct MCV MCH MCHC RDW Plt Count MPV Gran % Lymph % (Auto) Hart % (Auto) Eos % (Auto) Baso % (Auto) Gran # Lymph # (Auto) Hart # (Auto) Eos # (Auto) Baso # (Auto) Neutrophils % (Manual) Band Neutrophils % Lymphocytes % (Manual) Monocytes % (Manual) Eosinophils % (Manual) Basophils % (Manual) Metamyelocytes % Platelet Evaluation Large Platelets PT 15.2 H INR 1.31 Sodium 134 Potassium 4.5 Chloride 99 Carbon Dioxide 19 L Anion Gap 20 BUN 17 Creatinine 2.0 H Est GFR ( Amer) 42 Est GFR (Non-Af Amer) 34 POC Glucose (mg/dL) Random Glucose 369 H* D Calcium 8.8 Phosphorus 3.4 Magnesium 1.9 Total Bilirubin 1.2 AST 49 ALT 34 Alkaline Phosphatase 105 Troponin I 0.23 H* D Total Protein 6.7 Albumin 3.4 Globulin 3.3 Albumin/Globulin Ratio 1.0 L Triglycerides 161 H Cholesterol 167 LDL Cholesterol Direct 102 HDL Cholesterol 22 L TSH 3rd Generation 0.79 06/22/18 07:39 WBC RBC Hgb Hct MCV MCH MCHC RDW Plt Count MPV Gran % Lymph % (Auto) Hart % (Auto) Eos % (Auto) Baso % (Auto) Gran # Lymph # (Auto) Hart # (Auto) Eos # (Auto) Baso # (Auto) Neutrophils % (Manual) Band Neutrophils % Lymphocytes % (Manual) Monocytes % (Manual) Eosinophils % (Manual) Basophils % (Manual) Metamyelocytes % Platelet Evaluation Large Platelets PT INR Sodium Potassium Chloride Carbon Dioxide Anion Gap BUN Creatinine Est GFR ( Amer) Est GFR (Non-Af Amer) POC Glucose (mg/dL) 380 H Random Glucose Calcium Phosphorus Magnesium Total Bilirubin AST ALT Alkaline Phosphatase Troponin I Total Protein Albumin Globulin Albumin/Globulin Ratio Triglycerides Cholesterol LDL Cholesterol Direct HDL Cholesterol TSH 3rd Generation Radiology Impressions: Radiology Impressions Fluoroscopy 06/21/18 15:32 IMPRESSION: As above Chest X-Ray 06/21/18 23:35 IMPRESSION: Cardiomegaly. Hypoinflation. Medial right lower lobe opacity may reflect atelectasis/infiltrate. EKG/Cardiology Studies: Cardiology / EKG Studies 06/22/18 07:00 ELECTROCARDIOGRAM Routine Comment: Reason For Exam: svt, a flutter PRE OP:: N Does Patient Have a Pacemaker?: No Critical Care Progress Note - Nutrition Nutrition: Nutrition Category Date Time Status NPO Diet [DIET] Diets 06/22/18 Breakfast Ordered Attending/Attestation - Attestation I have personally seen and examined this patient.: Yes I have fully participated in the care of the patient.: Yes I have reviewed all pertinent clinical information: Yes Notes (Text): 06/22/18 11:11 The patient was seen and examined at the bedside. Patient care was discussed with resident Medical records, lab studies were reviewed and management issues were discussed and formulated. 

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
--- NOTE | 2018-06-22 11:43 | PCM.URO ---
Urology Progress Note - Subjective Abdominal Pain: Yes (full note dictated ) Vomiting: Yes (awaiting ct) Other: pt is s/p spt. overall he is ok. monitor closesly - Objective Lab Results Last 24 Hours: Laboratory Results - last 24 hr 06/21/18 06/21/18 06/21/18 18:42 18:42 19:31 WBC 15.8 H RBC 5.90 Hgb 16.1 Hct 49.8 MCV 84.4 MCH 27.3 MCHC 32.3 RDW 14.5 Plt Count 187 MPV 11.3 H Gran % 96.8 H Lymph % (Auto) 2.5 L [place] % (Auto) 0.4 L Eos % (Auto) 0.2 L Baso % (Auto) 0.1 Gran # 15.32 H Lymph # (Auto) 0.4 L [place] # (Auto) 0.1 Eos # (Auto) 0.0 Baso # (Auto) 0.01 Neutrophils % (Manual) 85 H Band Neutrophils % 5 H Lymphocytes % (Manual) 4 L Monocytes % (Manual) TEST NOT PERFORMED Eosinophils % (Manual) 1 Basophils % (Manual) 1 Metamyelocytes % 4 Platelet Evaluation Normal Large Platelets Present PT 15.6 H INR 1.36 Sodium 136 Potassium 3.8 Chloride 99 Carbon Dioxide 26 Anion Gap 14 BUN 11 Creatinine 1.0 Est GFR ( Amer) > 60 Est GFR (Non-Af Amer) > 60 POC Glucose (mg/dL) Random Glucose 268 H Calcium 9.0 Phosphorus Magnesium 1.6 L Total Bilirubin 1.4 H AST 31 ALT 30 Alkaline Phosphatase 158 H D Troponin I 0.02 D Total Protein 7.0 Albumin 3.6 Globulin 3.4 Albumin/Globulin Ratio 1.1 Triglycerides Cholesterol LDL Cholesterol Direct HDL Cholesterol TSH 3rd Generation 06/21/18 06/21/18 06/22/18 21:27 23:35 06:15 WBC 59.2 H* D RBC 6.16 H Hgb 16.7 Hct 51.7 MCV 83.9 MCH 27.1 MCHC 32.3 RDW 14.8 H Plt Count 154 MPV 12.6 H Gran % 94.9 H Lymph % (Auto) 1.6 L [place] % (Auto) 3.4 Eos % (Auto) 0.0 L Baso % (Auto) 0.1 Gran # 56.15 H Lymph # (Auto) 1.0 L [place] # (Auto) 2.0 H Eos # (Auto) 0.0 Baso # (Auto) 0.04 Neutrophils % (Manual) 70 Band Neutrophils % 28 H* Lymphocytes % (Manual) TEST NOT PERFORMED Monocytes % (Manual) 1 Eosinophils % (Manual) 1 Basophils % (Manual) Metamyelocytes % Platelet Evaluation Normal Large Platelets PT INR Sodium Potassium Chloride Carbon Dioxide Anion Gap BUN Creatinine Est GFR ( Amer) Est GFR (Non-Af Amer) POC Glucose (mg/dL) 264 H Random Glucose Calcium Phosphorus Magnesium Total Bilirubin AST ALT Alkaline Phosphatase Troponin I 0.12 D Total Protein Albumin Globulin Albumin/Globulin Ratio Triglycerides Cholesterol LDL Cholesterol Direct HDL Cholesterol TSH 3rd Generation 06/22/18 06/22/18 06/22/18 06:15 06:15 06:15 WBC RBC Hgb Hct MCV MCH MCHC RDW Plt Count MPV Gran % Lymph % (Auto) [place] % (Auto) Eos % (Auto) Baso % (Auto) Gran # Lymph # (Auto) [place] # (Auto) Eos # (Auto) Baso # (Auto) Neutrophils % (Manual) Band Neutrophils % Lymphocytes % (Manual) Monocytes % (Manual) Eosinophils % (Manual) Basophils % (Manual) Metamyelocytes % Platelet Evaluation Large Platelets PT 15.2 H INR 1.31 Sodium 134 Potassium 4.5 Chloride 99 Carbon Dioxide 19 L Anion Gap 20 BUN 17 Creatinine 2.0 H Est GFR ( Amer) 42 Est GFR (Non-Af Amer) 34 POC Glucose (mg/dL) Random Glucose 369 H* D Calcium 8.8 Phosphorus 3.4 Magnesium 1.9 Total Bilirubin 1.2 AST 49 ALT 34 Alkaline Phosphatase 105 Troponin I 0.23 H* D Total Protein 6.7 Albumin 3.4 Globulin 3.3 Albumin/Globulin Ratio 1.0 L Triglycerides 161 H Cholesterol 167 LDL Cholesterol Direct 102 HDL Cholesterol 22 L TSH 3rd Generation 0.79 06/22/18 07:39 WBC RBC Hgb Hct MCV MCH MCHC RDW Plt Count MPV Gran % Lymph % (Auto) [place] % (Auto) Eos % (Auto) Baso % (Auto) Gran # Lymph # (Auto) [place] # (Auto) Eos # (Auto) Baso # (Auto) Neutrophils % (Manual) Band Neutrophils % Lymphocytes % (Manual) Monocytes % (Manual) Eosinophils % (Manual) Basophils % (Manual) Metamyelocytes % Platelet Evaluation Large Platelets PT INR Sodium Potassium Chloride Carbon Dioxide Anion Gap BUN Creatinine Est GFR ( Amer) Est GFR (Non-Af Amer) POC Glucose (mg/dL) 380 H Random Glucose Calcium Phosphorus Magnesium Total Bilirubin AST ALT Alkaline Phosphatase Troponin I Total Protein Albumin Globulin Albumin/Globulin Ratio Triglycerides Cholesterol LDL Cholesterol Direct HDL Cholesterol TSH 3rd Generation Intake & Output: Intake & Output 06/21/18 06/22/18 06/22/18 18:59 06:59 18:59 Intake Total 2480 Output Total 220 Balance 2260 Weight 371 lb 14.4 oz Intake: IV 1480 Left Antecubital 1380 Oral 900 Tube Feeding 0 TPN/PPN 0 Blood Product 0 Lipid 0 Albumin 0 Other 100 Output: Drainage 95 Suprapubic Cystostomy 95 Tube Urine 125 Urethral (Ceron) 125 Stool 0 Urine/Stool Mix 0 Emesis 0 Oral Regurgitation 0 Other 0 Other: Voiding Method Indwelling Catheter # Voids Urethral (Ceron) 0 # Bowel Movements 0 Vital Signs: Vital Signs - 24 hr 06/21/18 06/21/18 06/21/18 15:37 15:52 16:06 Temperature 98.1 F 98.1 F 97.6 F Pulse Rate 109 H 108 H 118 H Pulse Rate [ Bilateral Dorsalis Pedis] Pulse Rate [ Bilateral Radial] Respiratory 20 16 19 Rate Blood Pressure 179/102 H 192/105 H 159/105 H O2 Sat by Pulse 96 97 94 L Oximetry 06/21/18 06/21/18 06/21/18 16:21 16:36 16:51 Temperature 99.0 F 100.2 F H 100.2 F H Pulse Rate 128 H 121 H 121 H Pulse Rate [ Bilateral Dorsalis Pedis] Pulse Rate [ Bilateral Radial] Respiratory 20 18 17 Rate Blood Pressure 177/93 H 146/92 H 137/91 H O2 Sat by Pulse 96 97 97 Oximetry 06/21/18 06/21/18 06/21/18 17:06 17:21 19:23 Temperature 97.6 F Pulse Rate 120 H 122 H 125 H Pulse Rate [ Bilateral Dorsalis Pedis] Pulse Rate [ Bilateral Radial] Respiratory 16 17 Rate Blood Pressure 117/75 106/64 O2 Sat by Pulse 96 97 Oximetry 06/21/18 06/21/18 06/21/18 20:00 20:09 21:38 Temperature 98.2 F Pulse Rate 139 H 140 H 127 H Pulse Rate [ 140 H Bilateral Dorsalis Pedis] Pulse Rate [ 140 H Bilateral Radial] Respiratory 24 26 H Rate Blood Pressure 121/72 121/72 103/56 L O2 Sat by Pulse 92 L 95 Oximetry 06/21/18 06/21/18 06/21/18 21:40 21:50 22:00 Temperature Pulse Rate 126 H 127 H 124 H Pulse Rate [ Bilateral Dorsalis Pedis] Pulse Rate [ Bilateral Radial] Respiratory 28 H 29 H 28 H Rate Blood Pressure 104/63 O2 Sat by Pulse 93 L 94 L 94 L Oximetry 06/21/18 06/21/18 06/21/18 22:10 22:20 22:30 Temperature Pulse Rate 126 H 125 H 129 H Pulse Rate [ Bilateral Dorsalis Pedis] Pulse Rate [ Bilateral Radial] Respiratory 29 H 28 H 31 H Rate Blood Pressure O2 Sat by Pulse 94 L 92 L 96 Oximetry 06/21/18 06/21/18 06/21/18 22:40 22:50 23:00 Temperature Pulse Rate 131 H 122 H 121 H Pulse Rate [ Bilateral Dorsalis Pedis] Pulse Rate [ Bilateral Radial] Respiratory 25 H 28 H 28 H Rate Blood Pressure O2 Sat by Pulse 92 L 93 L 92 L Oximetry 06/21/18 06/21/18 06/21/18 23:10 23:20 23:30 Temperature Pulse Rate 130 H 127 H 131 H Pulse Rate [ Bilateral Dorsalis Pedis] Pulse Rate [ Bilateral Radial] Respiratory 29 H 30 H 25 H Rate Blood Pressure O2 Sat by Pulse 92 L 91 L 92 L Oximetry 06/21/18 06/21/18 06/21/18 23:40 23:50 23:51 Temperature Pulse Rate 126 H 127 H 129 H Pulse Rate [ Bilateral Dorsalis Pedis] Pulse Rate [ Bilateral Radial] Respiratory 31 H 30 H Rate Blood Pressure 100/70 O2 Sat by Pulse 92 L 92 L 95 Oximetry 06/22/18 06/22/18 06/22/18 00:00 00:01 00:10 Temperature 97.6 F Pulse Rate 125 H 121 H 127 H Pulse Rate [ Bilateral Dorsalis Pedis] Pulse Rate [ Bilateral Radial] Respiratory 30 H 28 H 28 H Rate Blood Pressure 110/64 110/64 O2 Sat by Pulse 91 L 93 L 91 L Oximetry 06/22/18 06/22/18 06/22/18 00:20 00:30 00:40 Temperature Pulse Rate 122 H 122 H 119 H Pulse Rate [ Bilateral Dorsalis Pedis] Pulse Rate [ Bilateral Radial] Respiratory 28 H 29 H 27 H Rate Blood Pressure 113/66 O2 Sat by Pulse 92 L 91 L 94 L Oximetry 06/22/18 06/22/18 06/22/18 00:50 01:00 01:10 Temperature Pulse Rate 126 H 127 H 128 H Pulse Rate [ Bilateral Dorsalis Pedis] Pulse Rate [ Bilateral Radial] Respiratory 30 H 29 H 30 H Rate Blood Pressure 103/63 O2 Sat by Pulse 92 L 91 L 91 L Oximetry 06/22/18 06/22/18 06/22/18 01:20 01:30 01:40 Temperature Pulse Rate 129 H 121 H 128 H Pulse Rate [ Bilateral Dorsalis Pedis] Pulse Rate [ Bilateral Radial] Respiratory 30 H 28 H 30 H Rate Blood Pressure 118/68 O2 Sat by Pulse 91 L 91 L 91 L Oximetry 06/22/18 06/22/18 06/22/18 01:50 02:00 02:10 Temperature Pulse Rate 120 H 126 H 117 H Pulse Rate [ Bilateral Dorsalis Pedis] Pulse Rate [ Bilateral Radial] Respiratory 27 H 34 H 29 H Rate Blood Pressure 93/59 L O2 Sat by Pulse 90 L 93 L 95 Oximetry 06/22/18 06/22/18 06/22/18 02:20 02:30 02:40 Temperature Pulse Rate 117 H 124 H 124 H Pulse Rate [ Bilateral Dorsalis Pedis] Pulse Rate [ Bilateral Radial] Respiratory 28 H 31 H 30 H Rate Blood Pressure 92/57 L O2 Sat by Pulse 93 L 92 L 91 L Oximetry 06/22/18 06/22/18 06/22/18 02:50 03:00 03:10 Temperature Pulse Rate 127 H 121 H 117 H Pulse Rate [ Bilateral Dorsalis Pedis] Pulse Rate [ Bilateral Radial] Respiratory 31 H 27 H 27 H Rate Blood Pressure 104/49 L O2 Sat by Pulse 90 L 91 L 93 L Oximetry 06/22/18 06/22/18 06/22/18 03:20 03:30 03:40 Temperature Pulse Rate 117 H 118 H 125 H Pulse Rate [ Bilateral Dorsalis Pedis] Pulse Rate [ Bilateral Radial] Respiratory 28 H 26 H 30 H Rate Blood Pressure 103/58 L O2 Sat by Pulse 94 L 91 L 90 L Oximetry 06/22/18 06/22/1806/22/19 03:46 03:50 04:00 Temperature Pulse Rate 125 H 123 H Pulse Rate [ Bilateral Dorsalis Pedis] Pulse Rate [ Bilateral Radial] Respiratory 30 H 29 H Rate Blood Pressure 102/55 L O2 Sat by Pulse 100 90 L 91 L Oximetry 06/22/18 06/22/18 06/22/18 04:10 04:11 04:20 Temperature Pulse Rate 121 H 126 H 118 H Pulse Rate [ Bilateral Dorsalis Pedis] Pulse Rate [ Bilateral Radial] Respiratory 30 H 27 H Rate Blood Pressure O2 Sat by Pulse 91 L 91 L Oximetry 06/22/18 06/22/18 06/22/18 04:30 04:40 04:50 Temperature Pulse Rate 115 H 116 H 117 H Pulse Rate [ Bilateral Dorsalis Pedis] Pulse Rate [ Bilateral Radial] Respiratory 27 H 29 H 27 H Rate Blood Pressure 94/47 L O2 Sat by Pulse 93 L 93 L 91 L Oximetry 06/22/18 06/22/18 06/22/18 05:00 05:10 05:20 Temperature Pulse Rate 125 H 124 H 116 H Pulse Rate [ Bilateral Dorsalis Pedis] Pulse Rate [ Bilateral Radial] Respiratory 28 H 30 H 28 H Rate Blood Pressure 111/67 O2 Sat by Pulse 92 L 79 L 92 L Oximetry 06/22/18 06/22/18 06/22/18 05:30 05:33 05:38 Temperature Pulse Rate 112 H 110 H 121 H Pulse Rate [ Bilateral Dorsalis Pedis] Pulse Rate [ Bilateral Radial] Respiratory 26 H 27 H 40 H Rate Blood Pressure 73/42 L 71/46 L 70/49 L O2 Sat by Pulse 92 L 92 L 93 L Oximetry 06/22/18 06/22/18 06/22/18 05:39 05:40 05:41 Temperature Pulse Rate 113 H 116 H 109 H Pulse Rate [ Bilateral Dorsalis Pedis] Pulse Rate [ Bilateral Radial] Respiratory 28 H 29 H 26 H Rate Blood Pressure 70/44 L 103/62 O2 Sat by Pulse 93 L 92 L 92 L Oximetry 06/22/18 06/22/18 06/22/18 05:44 05:50 06:00 Temperature Pulse Rate 114 H 117 H 114 H Pulse Rate [ Bilateral Dorsalis Pedis] Pulse Rate [ Bilateral Radial] Respiratory 28 H 17 Rate Blood Pressure 103/62 103/75 O2 Sat by Pulse 92 L 96 Oximetry 06/22/18 06/22/18 06/22/18 06:10 06:20 06:30 Temperature Pulse Rate 112 H 106 H 110 H Pulse Rate [ Bilateral Dorsalis Pedis] Pulse Rate [ Bilateral Radial] Respiratory 29 H 22 25 H Rate Blood Pressure 116/70 O2 Sat by Pulse 94 L 95 94 L Oximetry 06/22/18 06/22/18 06/22/18 06:40 06:50 07:00 Temperature Pulse Rate 110 H 107 H 114 H Pulse Rate [ Bilateral Dorsalis Pedis] Pulse Rate [ Bilateral Radial] Respiratory 32 H 25 H 28 H Rate Blood Pressure O2 Sat by Pulse 94 L 92 L 93 L Oximetry 06/22/18 06/22/18 06/22/18 07:10 07:20 07:30 Temperature Pulse Rate 114 H Pulse Rate [ Bilateral Dorsalis Pedis] Pulse Rate [ Bilateral Radial] Respiratory 30 H Rate Blood Pressure O2 Sat by Pulse 90 L 92 L 92 L Oximetry 06/22/18 06/22/18 06/22/18 07:32 07:40 07:50 Temperature Pulse Rate 117 H 114 H 111 H Pulse Rate [ Bilateral Dorsalis Pedis] Pulse Rate [ Bilateral Radial] Respiratory 30 H 29 H 29 H Rate Blood Pressure 95/62 L O2 Sat by Pulse 92 L 92 L 96 Oximetry 06/22/18 06/22/18 06/22/18 08:00 08:01 08:10 Temperature Pulse Rate 111 H 112 H 108 H Pulse Rate [ Bilateral Dorsalis Pedis] Pulse Rate [ Bilateral Radial] Respiratory 28 H 30 H 28 H Rate Blood Pressure 92/48 L O2 Sat by Pulse 95 94 L 96 Oximetry 06/22/18 06/22/18 06/22/18 08:20 08:29 08:30 Temperature Pulse Rate 108 H 114 H Pulse Rate [ Bilateral Dorsalis Pedis] Pulse Rate [ Bilateral Radial] Respiratory 27 H 30 H Rate Blood Pressure 120/66 O2 Sat by Pulse 94 L 93 L Oximetry
[2018-06-22] MEDS: Tiotropium 18 mcg Cap For Inhalation IH SCH (11:52)
[2018-06-22] MEDS ORDERED: DAPTOmycin 500 mg Inj (Cubicin) IV SCH (12:15)
[2018-06-22] MEDS: MEROPENEM 500 MG in NS 500 MG/50 ML BAG IVPB SCH (14:00)
--- NOTE | 2018-06-22 14:35 | CT ---
Date of service: 06/22/2018 PROCEDURE: CT Abdomen and Pelvis without intravenous contrast HISTORY: confirm placement of spt COMPARISON: 05/19/2018 TECHNIQUE: Without contrast.. Contrast dose: Radiation dose: Total exam DLP = 1255.11 mGy-cm. This CT exam was performed using one or more of the following dose reduction techniques: Automated exposure control, adjustment of the mA and/or kV according to patient size, and/or use of iterative reconstruction technique. FINDINGS: LOWER THORAX: Unremarkable. LIVER: Unremarkable. No gross lesion or ductal dilatation. GALLBLADDER AND BILE DUCTS: Unremarkable. PANCREAS: Unremarkable. No gross lesion or ductal dilatation. SPLEEN: Unremarkable. ADRENALS: Unremarkable. No mass. KIDNEYS AND URETERS: Unremarkable. No hydronephrosis. No solid mass. VASCULATURE: Unremarkable. No aortic aneurysm. Aortic calcifications are seen BOWEL: Unremarkable. No obstruction. No gross mural thickening. There is a fluid level in the stomach. APPENDIX: Unremarkable. Normal appendix. PERITONEUM: Unremarkable. No free fluid. No free air. LYMPH NODES: Unremarkable. No enlarged lymph nodes. BLADDER: The Ceron catheter can be seen within the bladder. The balloon tip is opacified with contrast material. The bladder is decompressed. REPRODUCTIVE: Unremarkable. BONES: No acute fracture. OTHER FINDINGS: None. IMPRESSION: No acute intra-abdominal findings. Ceron catheter within the urinary bladder.
[2018-06-22] MEDS: Insulin Regular 100 UNITS in Sodium Chloride 0.9% 99 ML IV PRN (15:00)
--- NOTE | 2018-06-22 15:05 | PN ---
DATE: 06/22/2018 REASON FOR CONSULTATION AND FOLLOWUP: SVT/atrial flutter with rapid ventricular rate. Patient converted to normal sinus. SUBJECTIVE: Patient denies any chest pain,shortness of breath or any palpitation. OBJECTIVE: GENERAL: Not in apparent distress. VITAL SIGNS: Temperature afebrile, heart rate 112 and blood pressure 110/63. HEENT: PERRLA. Extraocular muscles intact. NECK: Supple. No carotid bruit. No thyromegaly. CHEST: Clear to auscultation. HEART: S1 and S2 regular. ABDOMEN: Soft. EXTREMITIES: Clubbing and cyanosis negative. LABORATORY DATA: Blood workup: WBC 59.2, hemoglobin 16, hematocrit 51.7 and platelet count 154. Chemistry showed sodium 134, potassium 4.5, chloride 99, carbon dioxide 19, anion gap of 20, BUN 17 and creatinine 2. Troponin 0.23. IMPRESSION: This is a 57-year-old morbidly obese male more than 370 pound bed bound history of recurrent urinary tract infection, hypospadias, history of atrial fibrillation flutter, cerebral palsy, congestive heart failure, bed bound, asthma, cerebrovascular accident admitted yesterday with suprapubic cystostomy. Postop, patient went into atrial fibrillation flutter possibly sepsis septic shock and urinary tract infection. RECOMMENDATION: We will change to verapamil 40 mg 3 times a day broad spectrum antibiotic. Continue possibly this elevated WBC is secondary to septic, ID evaluation and followup. 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 Though troponin is positive most likely secondary to stress, patient had a heart rate of 150 yesterday for persistently plus patient has some underlying coronary artery disease. No plan for cardiac catheterization, this time we will treat medically. Patient is asymptomatic. The patient has a WBC jump from 15 to 59, sepsis with bandemia of 28, left shift severe bandemia, severe sepsis. We will treat medically at this time taking to the , but we will start Coumadin anticoagulation and we will put p.o. verapamil. Most likely, the troponin is secondary to underlying sepsis and septic and stress situation because patient heart rate is of 150. Patient is asymptomatic. We will get echo to assess LV function. We will start verapamil and discontinue Cardizem one hour after first dose p.o. verapamil. We will give 10 mg of Coumadin today, 10 mg tomorrow and then 5 mg from the day after. It is okay with Dr. Frazier. Yosef Del Toro MD
[2018-06-22] MEDS ORDERED: Sodium Chloride 0.9% 1,000 ML IV STA (15:35)
[2018-06-22 15:40] LABS: HEMOGLOBIN 15.4 g/dL (14.0-18.0)
--- NOTE | 2018-06-22 15:51 | CP.PCM.PN ---
Subjective - Date & Time of Evaluation Date of Evaluation: 06/22/18 Time of Evaluation: 15:46 - Subjective Subjective: Gastroenterology Fellow/PGY6 Patient seen and evaluated. 57 year old male with active treatment of sepsis 2/2 UTI, recent cystostomy tube placement, and atrial flutter with rapid rate. GI consultation for coffee-ground emesis. Patient notees to have recurrent vomiting since 6AM with concern for dark vomitus of 300cc around 230pm. No further episodes of vomiting. Denies abdominal pain. Rectal exam- yellow stool present. Repeat Hb 15.4 from 16.7. Continue PPI IV BID zofran PRN continue to trend H/H Discussed with GI attending. Discussed with ICU team. Please contact with changes to patient clinical status, questions, or concerns. Full consult to follow on 06/23/2018 Objective - Vital Signs/Intake and Output Vital Signs (last 24 hours): Temp Pulse Resp BP Pulse Ox 97.6 F 115 H 32 H 130/70 91 L 06/22/18 00:01 06/22/18 13:23 06/22/18 11:50 06/22/18 13:23 06/22/18 11:50 Intake and Output: 06/22/18 06/22/18 06:59 18:59 Intake Total 2480 Output Total 220 Balance 2260 - Medications Medications: Current Medications Dextrose (Dextrose 50% Inj) 0 ml IV STAT PRN; Protocol PRN Reason: Hypoglycemia Protocol Fentanyl (Fentanyl) 25 mcg IV Q5M PRN PRN Reason: Pain, moderate (4-7) Sodium Chloride (Sodium Chloride 0.9%) 1,000 mls @ 100 mls/hr IV .Q10H [facility] Last Admin: 06/22/18 07:33 Dose: 100 mls/hr Dextrose (Dextrose 5% In Water 1000 Ml) 1,000 mls @ 0 mls/hr IV .Q0M PRN; Protocol PRN Reason: Hypoglycemia Protocol Meropenem/Sodium Chloride (Merrem Iv 500 Mg/Ns 50 Ml) 500 mg in 50 mls @ 100 mls/hr IVPB Q12H [facility]; Protocol Stop: 06/27/18 12:05 Daptomycin 650 mg/ Sodium (Chloride) 100 mls @ 200 mls/hr IV Q24H [facility] Stop: 06/27/18 12:16 Insulin Human Regular 100 (units/ Sodium Chloride) 100 mls @ 2 mls/hr IV .Q24H PRN; Protocol PRN Reason: TITRATE PER MD ORDER Sodium Chloride (Sodium Chloride 0.9%) 1,000 mls @ 999 mls/hr IV .Q1H1M STA Stop: 06/22/18 16:35 Insulin Detemir (Levemir) 12 unit SC HS [facility] Levalbuterol HCl (Xopenex) 1.25 mg IH [id number] [facility] Last Admin: 06/22/18 08:02 Dose: Not Given Metoprolol Tartrate (Lopressor) 25 mg PO BID [facility] Last Admin: 06/22/18 05:44 Dose: 25 mg Nystatin (Mycostatin Cream) 0 ea TOP TID [facility] Ondansetron HCl (Zofran Inj) 4 mg IVP Q6H PRN PRN Reason: Nausea/Vomiting Oxycodone/Acetaminophen (Percocet 5/325 Mg Tab) 1 tab PO Q6H PRN PRN Reason: Pain, moderate (4-7) Stop: 06/24/18 16:35 Last Admin: 06/22/18 00:00 Dose: 1 tab Pantoprazole Sodium (Protonix Inj) 40 mg IVP Q12 [facility] Tiotropium [place] (Spiriva) 18 mcg IH DAILY [facility] Last Admin: 06/22/18 11:52 Dose: 18 mcg Verapamil HCl (Calan Tab) 40 mg PO TID [facility] Warfarin Sodium (Coumadin) 10 mg PO 1800 [facility]; Protocol Stop: 06/23/18 23:59 Warfarin Sodium (Coumadin) 6 mg PO 1800 [facility]; Protocol - Labs Labs: 06/22/18 15:30 06/22/18 06:15 PT 15.2 SECONDS (9.4-12.5) H 06/22/18 06:15 INR 1.31 06/22/18 06:15 APTT 34.3 Seconds (25.1-36.5) 06/21/18 10:20
--- NOTE | 2018-06-22 15:52 | CARD ---
APPROVED REPORT Date of service: 06/22/2018 EXAM: Two-dimensional and M-mode echocardiogram with Doppler and color Doppler. INDICATION Chest Pain STEMI/LVFX 2D DIMENSIONS Left Atrium (2D)3.3 (1.6-4.0cm)IVSd1.5 (0.7-1.1cm) LVDd4.5 (3.9-5.9cm)PWd1.5 (0.7-1.1cm) LVDs3.0 (2.5-4.0cm)FS (%) 31.8 % LVEF (%)60.0 (>50%) M-Mode DIMENSIONS Aortic Root3.30 (2.2-3.7cm)Aortic Cusp Exc.2.00 (1.5-2.0cm) Aortic Valve AoV Peak [id number]/Nikunj Peak GR.5mmHg Mitral Valve E/A ratio0.0 TDI E/Lateral E'0.0E/Medial E'0.0 Pulmonary Valve PV Peak Blulngkg39.9cm/sPV Peak Grad.3mmHg Tricuspid Valve TR Peak [id number] [id number] Peak Gr.24mmHg [id number] LEFT VENTRICLE The left ventricle is normal size. There is mild concentric left ventricular hypertrophy. The left ventricular function is normal.EF-60-65% There is normal LV segmental wall motion. Transmitral Doppler flow pattern is Grade III-reversible restrictive diastolic dysfunction. No left ventricle thrombus noted on this study. There is no ventricular septal defect visualized. There is no left ventricular aneurysm. There is no mass noted in the left ventricle. RIGHT VENTRICLE The right ventricle is normal size. There is normal right ventricular wall thickness. The right ventricular systolic function is normal. ATRIA The left atrium size is normal. The right atrium size is normal. The interatrial septum is intact with no evidence for an atrial septal defect. AORTIC VALVE The aortic valve is thickened but opens well. No aortic regurgitation is present. There is no aortic valvular stenosis. There is no aortic valvular vegetation. MITRAL VALVE The mitral valve is thickened but opens well. Mitral regurgitation is trace to mild. There is no mitral valve stenosis. There is no evidence of mitral valve prolapse. TRICUSPID VALVE The tricuspid valve leaflets are thickened , but open well. There is trace to mild tricuspid regurgitation.[id number] mmof hg. There is no tricuspid valve stenosis. There is no tricuspid valve prolapse or vegetation. PULMONIC VALVE The pulmonic valve is not well visualized. GREAT VESSELS The aortic root is normal in size. The ascending aorta is normal in size. The pulmonary artery is normal. The IVC is normal in size and collapses >50% with inspiration. PERICARDIAL EFFUSION There is no pleural effusion. There is a trace pericardial effusion. <Conclusion> Normal chamber size, LVH, EF-60-65% Mitral regurgitation is trace to mild. There is trace to mild tricuspid regurgitation.[id number] mmof hg. The IVC is normal in size and collapses >50% with inspiration. There is a trace pericardial effusion. No vegetation or thrombus noted.
[2018-06-22] MEDS ORDERED: Amikacin 500 MG in Dextrose 5% In Water 100 ML IVPB ONE (17:15)
[2018-06-22] MEDS: Nystatin 100,000 Units/gm Cream(15 gm) TOP SCH (19:01)
[2018-06-23] MEDS: Insulin Regular 100 UNITS in Sodium Chloride 0.9% 99 ML IV PRN (00:15)
[2018-06-23] MEDS: MEROPENEM 500 MG in NS 500 MG/50 ML BAG IVPB SCH ×2 (00:32→11:52)
--- NOTE | 2018-06-23 01:41 | PN ---
DATE: 06/22/2018 SUBJECTIVE: The patient is a 57-year-old male. The patient was seen and examined at the bedside on 06/22/2018. The patient is not a good historian, looking comfortable. As per ICU nurses, the patient had episode of vomiting this morning, kept n.p.o., started insulin drip, because sugar was more than 300. No headache. No dizziness. No chest pain. No palpitation. PHYSICAL EXAMINATION: VITAL SIGNS: Pulse 114, respiratory rate 18 , blood pressure 120/56, pulse oximetry 93. HEENT: Head is normocephalic, atraumatic. Eyes: PERRLA. Extraocular muscles are intact. Conjunctivae clear. Nose patent. Mucous membranes moist. NECK: Supple. No carotid bruit. No JVD or thyromegaly. CHEST: Bilaterally symmetrical. HEART: S1 and S2, positive. LUNGS: Clear to auscultation. ABDOMEN: Soft. Bowel sounds present. No organomegaly. EXTREMITIES: No edema. No cyanosis. NEUROLOGIC: The patient is awake and alert. Moving all 4 extremities. No focal deficit. MEDICATIONS: NS, meropenem, diltiazem, dextrose, insulin, Levemir, Xopenex, Lopressor, oxycodone, Protonix, Spiriva. LABORATORY DATA: Glucose 380. White blood cells 59.2, hemoglobin 16.7, hematocrit 51.7, platelets 154. Troponin 0.12. Sodium 136, potassium 3.8, BUN 11, creatinine 1.0, glucose 268. ASSESSMENT AND PLAN: Mr. Marcus Valdovinos is a 57-year-old male with multiple medical problems, has history of atrial fibrillation, is on Coumadin; diabetes mellitus type 2; urinary retention catheter; cerebral palsy; congestive heart failure; chronic obstructive pulmonary disease; obstructive sleep apnea syndrome; hypertension; asthma; cerebrovascular accident; inability to ambulate, spinal tumor; surgery of the back; morbid obesity; came with atrial flutter after insertion of the cystotomy tube and cystogram due to urinary retention, being admitted in intensive care unit for atrial flutter with rapid ventricular response, sepsis, and urinary tract infection. Continue Cardizem drip, Holding Coumadin plus aspirin due to hematuria and potential bleed from cystotomy site. Echocardiogram done, status post cystotomy with the urinary output and fluid intake. Continue with Spiriva and Xopenex. Pulmonary consult called for sleep apnea. The patient may need bilevel positive airway pressure or continuous positive airway pressure depending on pulmonary and sleep specialist. Oxygen saturation to maintain the arterial oxygen saturation more than 90 and partial pressure arterial oxygen more than 50. Continue Zofran. Urology team on the case. Deep venous thrombosis and gastrointestinal prophylaxis. Repeat labs. We will follow up. Thalia Frazier MD MTDFátima
[2018-06-23] MEDS: Levalbuterol 1.25 MG/3 ML Inhal Soln UD IH SCH ×4 (01:47→20:45)
[2018-06-23 08:57] LABS: BASO # 0.02 K/mm3 (0.0-2.0); GRAN # 41.09 (1.4-6.5); GRAN % 89.8 % (50.0-68.0); HEMOGLOBIN 13.8 g/dL (14.0-18.0); LYMPH # 1.3 (1.2-3.4); LYMPH % 2.7 % (22.0-35.0); MEAN CELL VOLUME 82.5 fl (80.0-105.0); MEAN CORPUSCULAR HEMOGLOBIN 26.8 pg (25.0-35.0); MEAN CORPUSCULAR HGB CONC 32.5 g/dl (31.0-37.0); MEAN PLATELET VOLUME 11.2 fl (7.0-11.0); MONO # 3.5 (0.1-0.6); MONO % 7.5 % (1.0-6.0); RBC 5.15 10^6/uL (3.5-6.1); RED CELL DISTRIBUTION WIDTH 15.3 % (11.5-14.5)
[2018-06-23 09:18] LABS: WHITE BLOOD COUNT 45.8 10^3/uL (4.5-11.0)
[2018-06-23] MEDS: Sodium Chloride 0.9% 1,000 ML IV SCH ×2 (09:30→23:15)
[2018-06-23] MEDS: Nystatin 100,000 Units/gm Cream(15 gm) TOP SCH ×3 (09:50→17:15)
[2018-06-23] MEDS: Tiotropium 18 mcg Cap For Inhalation IH SCH (09:50)
[2018-06-23 09:52] LABS: ALB/GLOB RATIO 0.9 (1.1-1.8); ALBUMIN 2.8 g/dL (3.0-4.8); CALCIUM 8.1 mg/dL (8.4-10.5)
--- NOTE | 2018-06-23 10:34 | PN ---
DATE: 06/23/2018 VISUAL MERCHANDISING COORDINATOR NOTE SUBJECTIVE: The patient is awake and alert. No complaints of any pain. The patient has insulin drip on at this time and is getting IV fluids because of hyperglycemia. No complaints of chest pain, increased shortness of breath, cough, wheezing or chest congestion. The patient does not have hematuria this morning. PHYSICAL EXAMINATION: VITAL SIGNS: His temperature is 97.9, pulse is 108, respirations of 22 and BP is 120/66. SKIN: Warm and dry. HEENT: Head atraumatic and normocephalic. Eyes reactive to light. Ear, nose and throat seemed to be within normal limits. NECK: Supple. No JVD. No thyroid enlargement or lymph nodes. HEART: Has regular rate and rhythm. Normal S1, S2, but tachycardic. LUNGS: Reveal decreased breath sounds at the bases. ABDOMEN: Soft and obese. Decreased bowel sounds. GENITALIA: Deferred. RECTAL: Deferred. MUSCULOSKELETAL: No joint deformities. EXTREMITIES: Reveal 1-2+ lower extremity edema. NEUROLOGIC: He seemed to be grossly intact. LABORATORY DATA: His white count is 59.2, hemoglobin is 16.7, hematocrit is 51.7 and platelets is 154,000. The patient's CMP is pending, but his glucose is 180. IMPRESSION: This patient presented with urinary retention and has Gram-negative sepsis at this time. He has hyperglycemia requiring insulin drip. The patient has a urinary tract infection status post hematuria. Has a history of atrial fibrillation, diabetes, cerebral palsy, congestive heart failure and chronic obstructive pulmonary disease. PLAN: We will continue with the insulin drip and IV fluids of normal saline and monitor his blood glucose closely. We will follow up on the CMP. The patient was getting verapamil as well as his Coumadin. He is on daptomycin, IV fluids of 0.9% normal saline, Lopressor as well as meropenem, Percocet, Protonix, Spiriva and Xopenex. We will continue to treat aggressively along with the other consultants and the primary care doctor. Vipin Galvez MD
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
--- NOTE | 2018-06-23 13:27 | CP.PCM.PN ---
Subjective - Date & Time of Evaluation Date of Evaluation: 06/23/18 Time of Evaluation: 12:30 - Subjective Subjective: Patient still feels weak but a little better, no fevers overnight, no diarrhea, no abdominal pain. Objective - Vital Signs/Intake and Output Vital Signs (last 24 hours): Temp Pulse Resp BP Pulse Ox 97.9 F 91 H 19 75/50 L 93 L 06/23/18 00:00 06/23/18 08:32 06/23/18 08:32 06/23/18 08:32 06/23/18 08:32 Intake and Output: 06/23/18 06/23/18 06:59 18:59 Intake Total 1218 34 Output Total 100 Balance 1118 34 - Medications Medications: Current Medications Dextrose (Dextrose 50% Inj) 0 ml IV STAT PRN; Protocol PRN Reason: Hypoglycemia Protocol Fentanyl (Fentanyl) 25 mcg IV Q5M PRN PRN Reason: Pain, moderate (4-7) Sodium Chloride (Sodium Chloride 0.9%) 1,000 mls @ 100 mls/hr IV .Q10H [facility] Last Admin: 06/22/18 22:30 Dose: 100 mls/hr Dextrose (Dextrose 5% In Water 1000 Ml) 1,000 mls @ 0 mls/hr IV .Q0M PRN; Protocol PRN Reason: Hypoglycemia Protocol Meropenem/Sodium Chloride (Merrem Iv 500 Mg/Ns 50 Ml) 500 mg in 50 mls @ 100 mls/hr IVPB Q12H [facility]; Protocol Stop: 06/27/18 12:05 Last Admin: 06/23/18 00:32 Dose: 100 mls/hr Daptomycin 650 mg/ Sodium (Chloride) 100 mls @ 200 mls/hr IV Q24H [facility] Stop: 06/27/18 12:16 Last Admin: 06/22/18 13:30 Dose: 200 mls/hr Insulin Human Regular 100 (units/ Sodium Chloride) 100 mls @ 2 mls/hr IV .Q24H PRN; Protocol PRN Reason: TITRATE PER MD ORDER Last Titration: 06/23/18 08:11 Dose: 4 units/hr, 4 mls/hr Insulin Detemir (Levemir) 12 unit SC [facility] Levalbuterol HCl (Xopenex) 1.25 mg IH [id number] [facility] Last Admin: 06/23/18 07:13 Dose: 1.25 mg Metoprolol Tartrate (Lopressor) 25 mg PO BID [facility] Last Admin: 06/22/18 19:00 Dose: 25 mg Nystatin (Mycostatin Cream) 0 ea TOP TID [facility] Last Admin: 06/22/18 19:01 Dose: 1 applic Ondansetron HCl (Zofran Inj) 4 mg IVP Q6H PRN PRN Reason: Nausea/Vomiting Last Admin: 06/23/18 00:44 Dose: 4 mg Oxycodone/Acetaminophen (Percocet 5/325 Mg Tab) 1 tab PO Q6H PRN PRN Reason: Pain, moderate (4-7) Stop: 06/24/18 16:35 Last Admin: 06/22/18 00:00 Dose: 1 tab Pantoprazole Sodium (Protonix Inj) 40 mg IVP Q12 [facility] Last Admin: 06/22/18 22:29 Dose: 40 mg Tiotropium [place] (Spiriva) 18 mcg IH DAILY [facility] Last Admin: 06/22/18 11:52 Dose: 18 mcg Verapamil HCl (Calan Tab) 40 mg PO TID [facility] Last Admin: 06/22/18 19:01 Dose: 40 mg Warfarin Sodium (Coumadin) 10 mg PO 1800 [facility]; Protocol Stop: 06/23/18 23:59 Last Admin: 06/22/18 18:59 Dose: 10 mg Warfarin Sodium (Coumadin) 6 mg PO 1800 [facility]; Protocol - Labs Labs: 06/23/18 08:50 06/22/18 06:15 PT 15.2 SECONDS (9.4-12.5) H 06/22/18 06:15 INR 1.31 06/22/18 06:15 APTT 34.3 Seconds (25.1-36.5) 06/21/18 10:20 - Constitutional Appears: No Acute Distress, Chronically Ill - Head Exam Head Exam: NORMAL INSPECTION - Neck Exam Neck Exam: absent: Meningismus - Respiratory Exam Respiratory Exam: Decreased Breath Sounds - Cardiovascular Exam Cardiovascular Exam: +S1, +S2 - GI/Abdominal Exam GI & Abdominal Exam: Soft. absent: Tenderness Assessment and Plan - Assessment and Plan (Free Text) Plan: Assessment SIRS and multiorgan dysfunction, R/O severe sepsis from right sided HCAP R/O bacteremia after urologic procedure history of sepsis due to complicated UTI associated with indwelling [place] catheter, with urine growing E. coli history of severe sepsis with acute renal failure due to probable complicated UTI associated with indwelling [place] catheter, grew ESBL-producing E. coli HTN DM morbid obesity with BMI 53 chronic montague catheter use typically changed every month chronic atrial fibrillation S/P laminectomy in 2014 Plan continue Daptomycin and Merrem pending final blood and urine cx results; will add Doxycycline (day 2 of antibiotics) will continue to monitor clinically reviewed CT A/P - no acute pathology
[2018-06-23] MEDS: Insulin Lispro (humaLOG) MEDIUM Coverage SC SCH ×2 (16:05→22:00)
[2018-06-23 20:41] LABS: HEMOGLOBIN 14.4 g/dL (14.0-18.0)
[2018-06-23] MEDS: Insulin Detemir 100 units/ml Vial (Levemir) SC SCH (22:00)
--- NOTE | 2018-06-23 23:19 | CON ---
DATE: 06/23/2018 PULMONARY CRITICAL CARE CONSULT REFERRING PHYSICIAN: Thalia Frazier MD REASON FOR CONSULTATION: Chronic lung disease, sleep apnea syndrome, admitted with sepsis. HISTORY OF PRESENT ILLNESS: This is a 57-year-old gentleman known to me from previous admission, has sleep apnea syndrome, indwelling catheter, recurrent UTIs, paraplegic secondary to a spinal cord tumor, congestive heart failure, hypertension, decubitus ulcer, chronic lung disease, history of CVA, bedridden, also has diabetes. The patient had a suprapubic catheter placed, postop has SVT with heart rate 150 with hypotension, admitted to Intensive Care Unit, presently feeling okay. He is on clear liquid diet. Has bloody urine. No hemoptysis. No hematemesis. Denies any abdominal pain. PAST MEDICAL HISTORY: As per history of present illness. ALLERGIES: TO PENICILLIN. SOCIAL HISTORY: Nonsmoker, nondrinker. FAMILY HISTORY: No significant cardiopulmonary disease reported. MEDICATIONS: The patient is on Calan 40 mg three times a day, Coumadin 10 mg daily, daptomycin mg every 24 hours, doxycycline 100 mg twice a day, insulin coverage, Levemir 12 units subcu at bedtime, metoprolol tartrate 25 mg twice a day, meropenem 500 mg every 12 hours, Percocet 5/325 one tablet 6 hours p.r.n., Protonix 40 mg twice a day, IV fluid normal saline 100 mL/hour, Spiriva inhaled once a day, Xopenex inhaled every 6 hours, Zofran p.r.n. basis. REVIEW OF SYSTEM: No headache. No rhinitis. Denies any cough. Admit to have snoring, daytime sleepy and tired. No chest pain. No nausea, no vomiting, no abdominal pain. Has some suprapubic area tenderness. Has a decubitus ulcer. Trace leg swelling. PHYSICAL EXAMINATION GENERAL: No acute distress. VITAL SIGNS: Temperature is 98, heart rate is 82, respiratory rate is 18, blood pressure 146/79, pulse of 95% nasal cannula. HEENT: Moist mucous membrane. Crowded airway. Mallampati score is 4. Short thick neck. LUNGS: Have a fair airflow with rhonchi. HEART: S1, S2. ABDOMEN: Soft, nontender, nondistended. Suprapubic catheter. EXTREMITIES: There is trace edema. Has a decubitus ulcer. NEUROLOGICAL: Awake, alert. He is paraplegic. LABORATORY DATA: Shows hemoglobin 14.4, hematocrit 44.6, WBC 46,000, platelet is 114. INR yesterday 1.31. Sodium 136, potassium 4.3, chloride 104, bicarbonate 24, BUN 37, creatinine 2.0, glucose 181, calcium is 8.1, AST 31, ALT 30, alk phos is 104, albumin is 2.8. Microbiology: Urine culture has gram-negative and gram-positive organism. Also blood culture has been negative. Has a CT of the abdomen and pelvis done which shows no acute intra-abdominal finding. Echocardiogram was done yesterday which shows right ventricle systolic pressure is 34, LV ejection fraction is 60-65. No significant valvular disease reported. EKG shows sinus tachycardia. IMPRESSION AND PLAN: Status post suprapubic catheter placement, ended up with SVT, heart rate up to 150, history of AFib and flutter, chronic lung disease, obstructive sleep apnea syndrome, paraplegia secondary to spinal cord tumor, decubitus ulcer, morbid obesity, bedridden, diabetes, chronic lung disease. Case discussed with Dr. Frazier. We will place him on BiPAP 12/8 with 35% oxygen while sleeping. Inhaled bronchodilator. Keep head at 45 degrees. Antibiotics as per Infectious Disease. Urology followup. Decubitus ulcer precaution. Wound care followup. Follow up labs the morning. Thank you and we will follow with you. Yosef Dunbar MD
[2018-06-24] MEDS: Sodium Chloride 0.9% 1,000 ML IV SCH ×3 (00:35→22:01)
[2018-06-24] MEDS: MEROPENEM 500 MG in NS 500 MG/50 ML BAG IVPB SCH (00:53)
[2018-06-24 02:38] LABS: HEMOGLOBIN 13.1 g/dL (14.0-18.0)
[2018-06-24] MEDS: Levalbuterol 1.25 MG/3 ML Inhal Soln UD IH SCH ×4 (02:50→22:22)
--- NOTE | 2018-06-24 04:48 | PN ---
DATE: 06/23/2018 SUBJECTIVE: The patient is a 57-year-old male. The patient was seen and examined at the bedside on 06/23/2018, looking comfortable. No fever, no chills, no hematuria or hematochezia. No swelling of the legs. No chest pain. No palpitation. No headache. No dizziness. Not a big change in the status, had some suprapubic area tenderness, had decubitus ulcer, trace swelling of the legs. PHYSICAL EXAMINATION: VITAL SIGNS: Temperature 98, heart rate 82, respiratory rate 18, blood pressure 140/70, and pulse oximetry 95% nasal cannula. HEENT: Head is normocephalic, atraumatic. Eyes: PERRLA. Extraocular muscles are intact. Conjunctivae clear. Nose patent. Mucous membranes moist. NECK: Supple. No carotid bruit. No JVD or thyromegaly. CHEST: Bilaterally symmetrical. HEART: S1 and S2, positive. LUNGS: Have fair airflow with rhonchi. ABDOMEN: Soft. Nontender. No organomegaly. Has suprapubic catheter. EXTREMITIES: There is a trace edema. Had decubitus ulcer. NEUROLOGIC: The patient is awake and alert. Follow simple commands. LABORATORY DATA: Hemoglobin 14.4, hematocrit 44.6, white blood cells 46,000, and platelets 114. Sodium 136, potassium 4.3, BUN 37, and creatinine 2. AST 31 and ALT 30. INR 1.31. ASSESSMENT AND PLAN: Mr. Marcus Valdovinos is a 57-year-old male with multiple medical problems, ended up with supraventricular tachycardia, heart rate 150, history of atrial fibrillation and flutter, on antibiotics, chronic lung disease, sleep apnea syndrome, paraplegia, secondary to spinal cord tumor, and accidental decubitus ulcer, morbid obesity, bedridden. PLAN: Discussion with Dr. Dunbar. He placed the patient on BiPAP. There is a history of rapid response. When the patient went for procedure, blood pressure dropped and heart rate increased. Antibiotics as per Infectious Disease. Urology followup. GI and DVT prophylaxis. Repeat labs. We will follow up. Thalia Frazier MD [facility] # [id number]
[2018-06-24 07:44] LABS: BASO # 0.01 K/mm3 (0.0-2.0); EOS # 0.1 (0.0-0.7); EOS % 0.4 % (1.5-5.0); GRAN # 22.26 (1.4-6.5); GRAN % 88.6 % (50.0-68.0); LYMPH # 1.2 (1.2-3.4); LYMPH % 4.7 % (22.0-35.0); MEAN CELL VOLUME 83.7 fl (80.0-105.0); MEAN CORPUSCULAR HEMOGLOBIN 26.8 pg (25.0-35.0); MEAN PLATELET VOLUME 11.5 fl (7.0-11.0); MONO # 1.6 (0.1-0.6); MONO % 6.3 % (1.0-6.0); RBC 4.85 10^6/uL (3.5-6.1); RED CELL DISTRIBUTION WIDTH 15.8 % (11.5-14.5)
[2018-06-24 07:46] LABS: WHITE BLOOD COUNT 25.1 10^3/uL (4.5-11.0)
[2018-06-24 08:05] LABS: ALB/GLOB RATIO 0.9 (1.1-1.8); ALBUMIN 2.8 g/dL (3.0-4.8); ALT/SGPT 35 U/L (7-56); AST/SGOT 20 U/L (17-59); BLOOD UREA NITROGEN 33 mg/dL (7-21); CALCIUM 8.3 mg/dL (8.4-10.5); GFR NON-AFRICAN AMERICAN 57
[2018-06-24] MEDS: Insulin Lispro (humaLOG) MEDIUM Coverage SC SCH ×4 (08:07→22:01)
[2018-06-24 08:20] LABS: INR 2.12; PARTIAL THROMBOPLASTIN TIME 33.2 Seconds (25.1-36.5); PROTHROMBIN TIME 24.7 SECONDS (9.4-12.5)
[2018-06-24] MEDS: Tiotropium 18 mcg Cap For Inhalation IH SCH (09:49)
[2018-06-24] MEDS ORDERED: Meropenem IV 1 gm in NS 1 GM/50 ML BAG IVPB SCH ×2 (10:15→22:00)
--- NOTE | 2018-06-24 11:16 | PCM.URO ---
Urology Progress Note - Subjective Other: pt now 2R -. plans: montague to sd//. spt to sd. the plans are to clamp the montague via the urethra tomorrow 06/25. and if the spt is working well we will remove the montague 06/26. Antibioitcs as per ID - Objective Lab Results Last 24 Hours: Laboratory Results - last 24 hr 06/23/18 06/23/18 06/23/18 11:07 12:16 15:48 WBC RBC Hgb Hct MCV MCH MCHC RDW Plt Count MPV Gran % Lymph % (Auto) [place] % (Auto) Eos % (Auto) Baso % (Auto) Gran # Lymph # (Auto) [place] # (Auto) Eos # (Auto) Baso # (Auto) PT INR APTT Sodium Potassium Chloride Carbon Dioxide Anion Gap BUN Creatinine Est GFR ( Amer) Est GFR (Non-Af Amer) POC Glucose (mg/dL) 176 H 171 H 182 H Random Glucose Calcium Phosphorus Magnesium Total Bilirubin AST ALT Alkaline Phosphatase Total Protein Albumin Globulin Albumin/Globulin Ratio 06/23/18 06/23/18 06/24/18 20:30 22:24 02:05 WBC RBC Hgb 14.4 13.1 L Hct 44.6 40.8 L MCV MCH MCHC RDW Plt Count MPV Gran % Lymph % (Auto) [place] % (Auto) Eos % (Auto) Baso % (Auto) Gran # Lymph # (Auto) [place] # (Auto) Eos # (Auto) Baso # (Auto) PT INR APTT Sodium Potassium Chloride Carbon Dioxide Anion Gap BUN Creatinine Est GFR ( Amer) Est GFR (Non-Af Amer) POC Glucose (mg/dL) 209 H Random Glucose Calcium Phosphorus Magnesium Total Bilirubin AST ALT Alkaline Phosphatase Total Protein Albumin Globulin Albumin/Globulin Ratio 06/24/18 06/24/18 06/24/18 07:16 07:35 07:35 WBC 25.1 H* D RBC 4.85 Hgb 13.0 L Hct 40.6 L MCV 83.7 MCH 26.8 MCHC 32.0 RDW 15.8 H Plt Count 126 MPV 11.5 H Gran % 88.6 H Lymph % (Auto) 4.7 L [place] % (Auto) 6.3 H Eos % (Auto) 0.4 L Baso % (Auto) 0.0 Gran # 22.26 H Lymph # (Auto) 1.2 [place] # (Auto) 1.6 H Eos # (Auto) 0.1 Baso # (Auto) 0.01 PT 24.7 H INR 2.12 APTT 33.2 Sodium Potassium Chloride Carbon Dioxide Anion Gap BUN Creatinine Est GFR ( Amer) Est GFR (Non-Af Amer) POC Glucose (mg/dL) 268 H Random Glucose Calcium Phosphorus Magnesium Total Bilirubin AST ALT Alkaline Phosphatase Total Protein Albumin Globulin Albumin/Globulin Ratio 06/24/18 07:35 WBC RBC Hgb Hct MCV MCH MCHC RDW Plt Count MPV Gran % Lymph % (Auto) [place] % (Auto) Eos % (Auto) Baso % (Auto) Gran # Lymph # (Auto) [place] # (Auto) Eos # (Auto) Baso # (Auto) PT INR APTT Sodium 137 Potassium 4.3 Chloride 105 Carbon Dioxide 27 Anion Gap 9 L BUN 33 H Creatinine 1.3 Est GFR ( Amer) > 60 Est GFR (Non-Af Amer) 57 POC Glucose (mg/dL) Random Glucose 254 H Calcium 8.3 L Phosphorus 2.5 Magnesium 2.1 Total Bilirubin 0.4 AST 20 ALT 35 Alkaline Phosphatase 124 Total Protein 5.8 Albumin 2.8 L Globulin 3.0 Albumin/Globulin Ratio 0.9 L Intake & Output: Intake & Output 06/23/18 06/24/18 06/24/18 18:59 06:59 18:59 Intake Total 2629 800 Output Total 290 900 Balance 2339 -100 Weight 383 lb Intake: IV 1309 800 IVF 1000 Left Antecubital 0 Left Thumb 800 antibiotics 250 Oral 1320 0 Tube Feeding 0 TPN/PPN 0 Blood Product 0 Lipid 0 Albumin 0 Output: Drainage 15 Suprapubic Cystostomy 15 Tube Urine 275 900 Urethral ([place]) 275 900 Stool 0 0 Urine/Stool Mix 0 Emesis 0 Oral Regurgitation 0 Other 0 Other: # Voids Urethral ([place]) 0 # Bowel Movements 1 Vital Signs: Vital Signs - 24 hr 06/23/18 06/23/18 06/23/18 11:30 12:00 12:30 Temperature Pulse Rate 82 84 84 Respiratory 17 18 17 Rate Blood Pressure 111/61 91/55 L 115/69 O2 Sat by Pulse 96 97 96 Oximetry 06/23/18 06/23/18 06/23/18 13:00 13:30 14:00 Temperature Pulse Rate 81 81 73 Respiratory 18 16 15 Rate Blood Pressure 113/63 126/74 114/56 L O2 Sat by Pulse 97 99 96 Oximetry 06/23/18 06/23/18 06/23/18 14:09 15:00 15:30 Temperature Pulse Rate 82 79 83 Respiratory 16 16 Rate Blood Pressure 114/56 L 127/64 136/87 O2 Sat by Pulse 90 L 97 Oximetry 06/23/18 06/23/18 06/23/18 16:00 16:31 17:00 Temperature Pulse Rate 84 85 86 Respiratory 14 15 22 Rate Blood Pressure 144/75 92/61 L O2 Sat by Pulse 94 L 94 L 86 L Oximetry 06/23/18 06/23/18 06/23/18 17:01 17:14 17:15 Temperature Pulse Rate 87 87 88 Respiratory 13 Rate Blood Pressure 112/73 112/73 112/73 O2 Sat by Pulse 98 Oximetry 06/23/18 06/23/18 06/23/18 17:30 18:00 18:30 Temperature Pulse Rate 86 82 82 Respiratory 14 15 15 Rate Blood Pressure 135/85 146/79 157/78 H O2 Sat by Pulse 95 90 L 91 L Oximetry 06/23/18 06/23/18 06/23/18 19:00 19:30 20:00 Temperature 98.6 F Pulse Rate 81 93 H 97 H Respiratory 15 25 H Rate Blood Pressure 129/79 126/50 L 146/107 H O2 Sat by Pulse 94 L 99 79 L Oximetry 06/23/18 06/23/18 06/23/18 21:00 22:00 23:00 Temperature Pulse Rate 93 H 89 87 Respiratory 15 15 7 L Rate Blood Pressure O2 Sat by Pulse 87 L 83 L Oximetry 06/24/18 06/24/18 06/24/18 00:33 02:00 02:37 Temperature 97.6 F Pulse Rate 82 81 81 Respiratory 19 Rate Blood Pressure 163/95 H O2 Sat by Pulse 96 Oximetry 06/24/18 06/24/18 06/24/18 06:00 09:46 09:49 Temperature 98.2 F Pulse Rate 86 82 82 Respiratory 19 Rate Blood Pressure 149/83 155/90 H 155/90 H O2 Sat by Pulse 96 Oximetry
[2018-06-24] MEDS: Nystatin 100,000 Units/gm Cream(15 gm) TOP SCH ×3 (11:37→17:44)
--- NOTE | 2018-06-24 12:14 | CP.PCM.PN ---
<Siri Mejia - Last Filed: 06/24/18 12:09> Subjective - Date & Time of Evaluation Date of Evaluation: 06/24/18 Time of Evaluation: 12:09 - Subjective Subjective: Gastroenterology Fellow/PGY6 Progress Note Patient resting comfortably. Tolerating liquid diet. No further episodes of vomiting. Having soft brown stools. A 12-point review of systems negative except for as above. Objective - Vital Signs/Intake and Output Vital Signs (last 24 hours): Temp Pulse Resp BP Pulse Ox 98.2 F 82 19 155/90 H 96 06/24/18 06:00 06/24/18 09:49 06/24/18 06:00 06/24/18 09:49 06/24/18 06:00 Intake and Output: 06/24/18 06/24/18 06:59 18:59 Intake Total 800 Output Total 900 Balance -100 - Medications Medications: Current Medications Dextrose (Dextrose 50% Inj) 0 ml IV STAT PRN; Protocol PRN Reason: Hypoglycemia Protocol Doxycycline Hyclate (Doryx) 100 mg PO Q12 [facility]; Protocol Fentanyl (Fentanyl) 25 mcg IV Q5M PRN PRN Reason: Pain, moderate (4-7) Sodium Chloride (Sodium Chloride 0.9%) 1,000 mls @ 100 mls/hr IV .Q10H [facility] Last Admin: 06/24/18 00:35 Dose: Not Given Dextrose (Dextrose 5% In Water 1000 Ml) 1,000 mls @ 0 mls/hr IV .Q0M PRN; Protocol PRN Reason: Hypoglycemia Protocol Daptomycin 650 mg/ Sodium (Chloride) 100 mls @ 200 mls/hr IV Q24H [facility] Stop: 06/27/18 12:16 Last Admin: 06/23/18 11:52 Dose: 200 mls/hr Insulin Human Regular 100 (units/ Sodium Chloride) 100 mls @ 2 mls/hr IV .Q24H PRN; Protocol PRN Reason: TITRATE PER MD ORDER Last Titration: 06/23/18 14:09 Dose: 0 units/hr, 0 mls/hr Meropenem (Merrem Iv 1 Gm Premix) 1 gm in 50 mls @ 100 mls/hr IVPB Q12 [facility]; Protocol Stop: 07/01/18 10:16 Last Admin: 06/24/18 11:36 Dose: 100 mls/hr Insulin Detemir (Levemir) 12 unit SC HS [facility] Last Admin: 06/23/18 22:00 Dose: 12 u Insulin Human Lispro (Humalog Med) 0 units SC ACHS [facility]; Protocol Last Admin: 06/24/18 11:36 Dose: 5 units Levalbuterol HCl (Xopenex) 1.25 mg IH [id number] [facility] Last Admin: 06/24/18 07:53 Dose: 1.25 mg Metoprolol Tartrate (Lopressor) 25 mg PO BID [facility] Last Admin: 06/24/18 09:46 Dose: 25 mg Nystatin (Mycostatin Cream) 0 ea TOP TID [facility] Last Admin: 06/24/18 11:37 Dose: 1 applic Ondansetron HCl (Zofran Inj) 4 mg IVP Q6H PRN PRN Reason: Nausea/Vomiting Last Admin: 06/23/18 20:21 Dose: 4 mg Oxycodone/Acetaminophen (Percocet 5/325 Mg Tab) 1 tab PO Q6H PRN PRN Reason: Pain, moderate (4-7) Stop: 06/24/18 16:35 Last Admin: 06/22/18 00:00 Dose: 1 tab Pantoprazole Sodium (Protonix Inj) 40 mg IVP Q12 [facility] Last Admin: 06/24/18 09:49 Dose: 40 mg Tiotropium [place] (Spiriva) 18 mcg IH DAILY [facility] Last Admin: 06/24/18 09:49 Dose: 18 mcg Verapamil HCl (Calan Tab) 40 mg PO TID [facility] Last Admin: 06/24/18 09:49 Dose: 40 mg Warfarin Sodium (Coumadin) 6 mg PO 1800 [facility]; Protocol - Labs Labs: 06/24/18 07:35 06/24/18 07:35 PT 24.7 SECONDS (9.4-12.5) H 06/24/18 07:35 INR 2.12 06/24/18 07:35 APTT 33.2 Seconds (25.1-36.5) 06/24/18 07:35 - Constitutional Appears: Non-toxic, No Acute Distress - Head Exam Head Exam: ATRAUMATIC, NORMOCEPHALIC - Eye Exam Eye Exam: EOMI, PERRL Pupil Exam: PERRL. absent: Miosis, Mydriatic - ENT Exam ENT Exam: Mucous Membranes Moist, Normal Oropharynx - Neck Exam Neck Exam: Full ROM, Normal Inspection - Respiratory Exam Respiratory Exam: Clear to Ausculation Bilateral. absent: Rales, Rhonchi, Wheezes - Cardiovascular Exam Cardiovascular Exam: RRR, +S1, +S2. absent: Gallop, Rubs - GI/Abdominal Exam GI & Abdominal Exam: Soft, Normal Bowel Sounds. absent: Distended, Firm, Guarding, Rigid, Tenderness, Organomegaly, Rebound - Extremities Exam Additional comments: B/L dependent edema - Neurological Exam Neurological Exam: Alert, Awake - Psychiatric Exam Psychiatric exam: Normal Affect, Normal Mood - Skin Skin Exam: Dry, Intact, Normal Color, Warm Assessment and Plan - Assessment and Plan (Free Text) Assessment: 57 year old male with PMH of cerebral palsy, paraplegia in setting of spinal cord tumor removal, urinary retention requiring indwelling catheter, paroxysmal Atrial fibrillation, CVA, COPD, HTN, Diabetes presenting for suprapubic cystostomy tube placement. Active treatment of sepsis 2/2 UTI with cystostomy tube placement on 06/21/17 complicated by atrial flutter with rapid ventricular rate. GI consultation for recurrent vomitus with concern for episode of coffee- ground emesis in setting of atrial flutter with rapid rate and sepsis 2/2 ESBL UTI . No prior colonoscopy. Plan: -vomiting resolved -H/H stable on trend -small blood loss with hematuria with recent suprapubic catheter placement -started on warfarin yesterday for atrial flutter -continue PPI ACB -monitor H/H -on liquid diet, advance as tolerated -will follow clinical course <Lj Hollis - Last Filed: 06/24/18 21:20> Objective - Vital Signs/Intake and Output Vital Signs (last 24 hours): Temp Pulse Resp BP Pulse Ox 97.5 F L 71 18 162/98 H 96 06/24/18 17:16 06/24/18 18:00 06/24/18 17:16 06/24/18 17:50 06/24/18 06:00 Intake and Output: 06/24/18 06/25/18 18:59 06:59 Intake Total 1380 1250 Output Total 1900 0 Balance -520 1250 - Medications Medications: Current Medications Dextrose (Dextrose 50% Inj) 0 ml IV STAT PRN; Protocol PRN Reason: Hypoglycemia Protocol Doxycycline Hyclate (Doryx) 100 mg PO Q12 [facility]; Protocol Fentanyl (Fentanyl) 25 mcg IV Q5M PRN PRN Reason: Pain, moderate (4-7) Sodium Chloride (Sodium Chloride 0.9%) 1,000 mls @ 100 mls/hr IV .Q10H [facility] Last Admin: 06/24/18 13:31 Dose: 100 mls/hr Dextrose (Dextrose 5% In Water 1000 Ml) 1,000 mls @ 0 mls/hr IV .Q0M PRN; Protocol PRN Reason: Hypoglycemia Protocol Daptomycin 650 mg/ Sodium (Chloride) 100 mls @ 200 mls/hr IV Q24H [facility] Stop: 06/27/18 12:16 Last Admin: 06/24/18 12:30 Dose: 200 mls/hr Insulin Human Regular 100 (units/ Sodium Chloride) 100 mls @ 2 mls/hr IV .Q24H PRN; Protocol PRN Reason: TITRATE PER MD ORDER Last Titration: 06/23/18 14:09 Dose: 0 units/hr, 0 mls/hr Meropenem (Merrem Iv 1 Gm Premix) 1 gm in 50 mls @ 100 mls/hr IVPB Q12 [facility]; Protocol Stop: 07/01/18 10:16 Last Admin: 06/24/18 11:36 Dose: 100 mls/hr Insulin Detemir (Levemir) 12 unit SC HS [facility] Last Admin: 06/23/18 22:00 Dose: 12 u Insulin Human Lispro (Humalog Med) 0 units SC ACHS [facility]; Protocol Last Admin: 06/24/18 17:49 Dose: 5 units Levalbuterol HCl (Xopenex) 1.25 mg IH [id number] [facility] Last Admin: 06/24/18 13:26 Dose: 1.25 mg Metoprolol Tartrate (Lopressor) 25 mg PO BID [facility] Last Admin: 06/24/18 17:50 Dose: 25 mg Nystatin (Mycostatin Cream) 0 ea TOP TID [facility] Last Admin: 06/24/18 17:44 Dose: 1 applic Ondansetron HCl (Zofran Inj) 4 mg IVP Q6H PRN PRN Reason: Nausea/Vomiting Last Admin: 06/23/18 20:21 Dose: 4 mg Pantoprazole Sodium (Protonix Inj) 40 mg IVP Q12 [facility] Last Admin: 06/24/18 09:49 Dose: 40 mg Tiotropium [place] (Spiriva) 18 mcg IH DAILY [facility] Last Admin: 06/24/18 09:49 Dose: 18 mcg Verapamil HCl (Calan Tab) 40 mg PO TID [facility] Last Admin: 06/24/18 17:48 Dose: 40 mg Warfarin Sodium (Coumadin) 6 mg PO 1800 [facility]; Protocol Last Admin: 06/24/18 17:48 Dose: 6 mg - Labs Labs: 06/24/18 19:45 06/24/18 07:35 PT 24.7 SECONDS (9.4-12.5) H 06/24/18 07:35 INR 2.12 06/24/18 07:35 APTT 33.2 Seconds (25.1-36.5) 06/24/18 07:35 Attending/Attestation - Attestation I have personally seen and examined this patient.: Yes I have fully participated in the care of the patient.: Yes I have reviewed all pertinent clinical information, including history, physical exam and plan: Yes Notes (Text): 06/24/18 21:18 The pt was seen and examined this am. Chart reviewed. Agree with the above findings, assessment and recommendations.
--- NOTE | 2018-06-24 12:56 | CP.PCM.PN ---
Subjective - Date & Time of Evaluation Date of Evaluation: 06/24/18 Time of Evaluation: 10:35 - Subjective Subjective: Patient is feeling a little better today, no fevers, not in distress, no abdominal pain, no diarrhea. Objective - Vital Signs/Intake and Output Vital Signs (last 24 hours): Temp Pulse Resp BP Pulse Ox 97.9 F 83 19 117/51 L 93 L 06/23/18 00:00 06/23/18 09:53 06/23/18 08:32 06/23/18 09:53 06/23/18 08:32 Intake and Output: 06/23/18 06/23/18 06:59 18:59 Intake Total 1218 47 Output Total 100 Balance 1118 47 - Medications Medications: Current Medications Dextrose (Dextrose 50% Inj) 0 ml IV STAT PRN; Protocol PRN Reason: Hypoglycemia Protocol Fentanyl (Fentanyl) 25 mcg IV Q5M PRN PRN Reason: Pain, moderate (4-7) Sodium Chloride (Sodium Chloride 0.9%) 1,000 mls @ 100 mls/hr IV .Q10H [facility] Last Admin: 06/23/18 09:30 Dose: 100 mls/hr Dextrose (Dextrose 5% In Water 1000 Ml) 1,000 mls @ 0 mls/hr IV .Q0M PRN; Protocol PRN Reason: Hypoglycemia Protocol Meropenem/Sodium Chloride (Merrem Iv 500 Mg/Ns 50 Ml) 500 mg in 50 mls @ 100 mls/hr IVPB Q12H [facility]; Protocol Stop: 06/27/18 12:05 Last Admin: 06/23/18 11:52 Dose: 100 mls/hr Daptomycin 650 mg/ Sodium (Chloride) 100 mls @ 200 mls/hr IV Q24H [facility] Stop: 06/27/18 12:16 Last Admin: 06/23/18 11:52 Dose: 200 mls/hr Insulin Human Regular 100 (units/ Sodium Chloride) 100 mls @ 2 mls/hr IV .Q24H PRN; Protocol PRN Reason: TITRATE PER MD ORDER Last Titration: 06/23/18 11:11 Dose: 4 units/hr, 4 mls/hr Doxycycline Hyclate 100 mg/ (Sodium Chloride) 100 mls @ 100 mls/hr IVPB Q12 [facility]; Protocol Last Admin: 06/23/18 09:55 Dose: 100 mls/hr Insulin Detemir (Levemir) 12 unit SC HS [facility] Insulin Human Lispro (Humalog Med) 0 units SC ACHS [facility]; Protocol Levalbuterol HCl (Xopenex) 1.25 mg IH [id number] [facility] Last Admin: 06/23/18 13:22 Dose: 1.25 mg Metoprolol Tartrate (Lopressor) 25 mg PO BID [facility] Last Admin: 06/23/18 09:53 Dose: 25 mg Nystatin (Mycostatin Cream) 0 ea TOP TID [facility] Last Admin: 06/23/18 09:50 Dose: 1 applic Ondansetron HCl (Zofran Inj) 4 mg IVP Q6H PRN PRN Reason: Nausea/Vomiting Last Admin: 06/23/18 00:44 Dose: 4 mg Oxycodone/Acetaminophen (Percocet 5/325 Mg Tab) 1 tab PO Q6H PRN PRN Reason: Pain, moderate (4-7) Stop: 06/24/18 16:35 Last Admin: 06/22/18 00:00 Dose: 1 tab Pantoprazole Sodium (Protonix Inj) 40 mg IVP Q12 [facility] Last Admin: 06/23/18 09:53 Dose: 40 mg Tiotropium [place] (Spiriva) 18 mcg IH DAILY [facility] Last Admin: 06/23/18 09:50 Dose: 18 mcg Verapamil HCl (Calan Tab) 40 mg PO TID [facility] Last Admin: 06/23/18 09:52 Dose: 40 mg Warfarin Sodium (Coumadin) 10 mg PO 1800 [facility]; Protocol Stop: 06/23/18 23:59 Last Admin: 06/22/18 18:59 Dose: 10 mg Warfarin Sodium (Coumadin) 6 mg PO 1800 [facility]; Protocol - Labs Labs: 06/23/18 08:50 06/23/18 08:50 PT 15.2 SECONDS (9.4-12.5) H 06/22/18 06:15 INR 1.31 06/22/18 06:15 APTT 34.3 Seconds (25.1-36.5) 06/21/18 10:20 - Constitutional Appears: Chronically Ill - Head Exam Head Exam: NORMAL INSPECTION - Respiratory Exam Respiratory Exam: Decreased Breath Sounds - Cardiovascular Exam Cardiovascular Exam: +S1, +S2 - GI/Abdominal Exam GI & Abdominal Exam: Soft. absent: Tenderness Assessment and Plan - Assessment and Plan (Free Text) Plan: Assessment severe sepsis from right sided HCAP and complicated UTI with E. faecalis and ESBL-producing E. coli in this patient who underwent a urologic procedure history of sepsis due to complicated UTI associated with indwelling [place] catheter, with urine growing E. coli history of severe sepsis with acute renal failure due to probable complicated U TI associated with indwelling [place] catheter, grew ESBL-producing E. coli HTN DM morbid obesity with BMI 53 chronic montague catheter use typically changed every month chronic atrial fibrillation S/P laminectomy in 2014 Plan continue Daptomycin and Merrem for now and will continue to monitor clinically , together with doxycycline (day 4 of antibiotics) will continue to monitor clinically reviewed CT A/P - no acute pathology
[2018-06-24 13:58] LABS: HEMOGLOBIN 13.4 g/dL (14.0-18.0)
[2018-06-24] MEDS: Insulin Detemir 100 units/ml Vial (Levemir) SC SCH (22:01)
--- NOTE | 2018-06-24 22:31 | PN ---
DATE: 06/24/2018 PULMONARY PROGRESS NOTE REFERRING PHYSICIAN: Thalia Frazier MD SUBJECTIVE: He is lying in the bed, feels better. No headache. No rhinitis. No cough. No nausea, no vomiting, no diarrhea. Still draining most of the urine from Ceron catheter, has a bloody small drainage from the suprapubic catheter. OBJECTIVE: GENERAL: In no acute distress. VITAL SIGNS: Temperature 98, heart rate is 83, respiratory rate is 18, blood pressure 174/96, pulse ox 96% on BiPAP this morning. HEENT: Moist mucous membrane. Crowded airway. Mallampati score is 4. NECK: Supple. No JVD. LUNGS: Have fair airflow with rhonchi. HEART: S1, S2. ABDOMEN: Soft, nontender, nondistended. Suprapubic area looks okay, catheter looks okay. EXTREMITIES: Trace edema. NEUROLOGIC: Awake, alert, follows simple command. MEDICATIONS: He is on verapamil 40 mg three times a day, Coumadin 6 mg will be given tonight, also daptomycin 650 mg every 24 hours, doxycycline 100 mg twice a day, fentanyl 25 mcg p.r.n. was given, insulin coverage, Levemir 12 units subcu at bedtime, metoprolol tartrate 25 mg three times a day, meropenem 1 g IV every 12 hours, nystatin at affected area three times a day, Protonix 40 mg every 12 hours, IV fluid normal saline 100 mL/hour, Spiriva inhaled daily, Xopenex inhaled every 6 hours, Zofran on a p.r.n. basis. LABORATORY DATA: Shows hemoglobin 13.4, hematocrit 42.0, WBC 25, platelet count is 126. INR 2.12. PTT is 33. Sodium 137, potassium 4.3, chloride 105, bicarbonate 27, BUN 33, creatinine 1.3, glucose 254, calcium is 8.3, phosphorus is 2.5, magnesium 2.1, total bilirubin 0.4, AST 20, ALT 35, alk phos is 124. Albumin is 2.8. Microbiology, urine culture has E. coli and Enterococcus faecalis. 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 Pulmonary point of view, doing okay. Encouraged BiPAP use. Keep head at 45 degrees. Bronchodilator, antibiotics as per Infectious Disease, IV fluid. Gastric prophylaxis, anticoagulation. Follow up labs in the morning. Thank you and we will follow with you. Yosef Dunbar MD
--- NOTE | 2018-06-24 23:48 | HP ---
DATE OF EXAM: 06/21/2018 UROLOGY ADMISSION HISTORY AND PHYSICAL REASON ADMISSION: Insertion of cystostomy tube. HISTORY OF PRESENT ILLNESS: Mr. Marcus Valdovinos is an extremely pleasant gentleman. He was in a snf. He has urinary retention and voiding dysfunction. He has a very difficulty body habitus. At this point, he is actually getting hypospadias from folic catheter plus changing of catheter is extremely difficult for the patient. difficult for me, I have to get people to help me to do it. That is secondary to his body habitus, in fact, sometimes when he comes to the emergency room I get phone calls that his suprapubic is not working, but it is not a suprapubic, it is a Ceron by the urethra and I am positive of this. I have been changing it on a regular basis. Now, we discussed options. He is 57 years old. There has been no major medical changes of late. We have to discuss options at length with the patient. He is here today for his cystos and discussing with his medical doctor, Dr. Frazier. Hopes are that we will be able to get a well working cystostomy tube in place, and then he will be able to live with a cystostomy tube rather than a Ceron, because it is becoming more and more difficult to change and because he has underlying hypospadias at this point. In the interim, he does not come to the office on a regular basis, he is very prone to sepsis. He has multiple admissions for sepsis. See below for multiple admissions for sepsis. Secondary to urinary sepsis and other sepsis still. He is essentially immobile. He is above 300 pounds, maybe even more. He has a lot of difficulty. He is well care for. He is very pleasant. REVIEW OF SYSTEMS: As listed above. No major constitutional complaints. He is bed bound, this is important to note. Also of note, he lives in a snf. He lives at [facility]. MEDICAL AND SURGICAL HISTORY: Listed on the chart. He is on Coumadin. They stopped it since Monday apparently according to the patient. He is here today for physical exam. MEDICATIONS: See chart. ALLERGIES: SEE CHART. PHYSICAL EXAMINATION: GENERAL: A well nourished male, in no apparent distress. Body habitus noted. VITAL SIGNS: Noted. LUNGS: Clear. HEART: Normal S1 and S2. ABDOMEN: Overall soft. Ceron catheter in place. He has a 22-Czech Ceron by the urethra with a little hypospadias noted. See the procedure note dictated separately through the addendum at the end of this note. DIAGNOSES: Urinary retention, voiding dysfunction, and gross hematuria. PLAN: The plan as above. Today, we are going to do a cystostomy tube and a cystogram. We have done multiple cystoscopes on the patient. There is no obvious reason. There is no major abnormality. There was a lot of debris in his bladder, but the plan is as follows today. 1. Antibiotic prophylaxis. 2. Change of cystostomy tube. 3. Cystogram to confirm . ADDENDUM: Postop patient started developing fever. As mentioned before, he is extremely at risk. He has had multiple admissions for sepsis, all related to changing Ceron catheter. Sometimes, if we do not change quick enough. So, we are going to admit the patient because I am worried for sepsis and we are going get in an admission actually to doctor. I spoke to Dr. Frazier. She wants him to be admitted to her service. We are going to get an Infectious Disease consult. We will also get Bettina Garcia's consult for breathing and other consults to follow. Urology will follow along. I do want to mention to see the operative note, procedure went extremely well. We were able to on the first step get into the bladder. First step, we got into bladder, right away we measured on the fluoroscopic imaging and we are definitely in good location. We emptied out clear yellow urine. In fact, my initial plan was to resume the Coumadin as quickly as possible. We will see how the patient does, and we will try to resume it as quickly as possible. Ankit Ly MD
--- NOTE | 2018-06-25 00:48 | PN ---
DATE: 06/21/2018 IMMEDIATE POSTOPERATIVE NOTE See the chart notes. This patient, through the operative note and history and physical, patient was admitted for insertion of cystostomy tube. Cystostomy tube was inserted without difficulty. One stab and we were able to insert the tube. In the postoperative period, the patient is developing fever. The urology plan as follows: The diagnoses is urinary retention and sepsis. The patient is now being admitted to the hospital to the intensive care unit. He will be monitored closely. See the below addendum, but I will mention now. ADDENDUM TO THE OPERATIVE REPORT Procedure itself went well. Ceron catheter is in good location, I can confirm this. The cystostomy tube was in good location, I can confirm this. The patient will be admitted to Dr. Frazier and brought to the ICU in close monitoring. Again the patient has previously had many bouts of sepsis. Despite the fact that we used antibiotic prophylaxis, he is just at strong risk for sepsis. I will give him antibiotics to make sure he is okay. Ankit Ly MD
--- NOTE | 2018-06-25 02:21 | PN ---
DATE: 06/24/2018 SUBJECTIVE: The patient is a 57-year-old male. The patient was seen and examined late evening on 06/24/2018, looking comfortable. Blood pressure is high, still having NS. I stopped the NS, gave a dose of clonidine. No fever. No chills. No hematuria or hematochezia. No headache or dizziness. No chest pain. No palpitation. PHYSICAL EXAMINATION: VITAL SIGNS: Temperature 98, heart rate 83, respiratory rate 18, blood pressure 170/96, pulse oximetry 98% on BiPAP. HEENT: Head: Normocephalic, atraumatic. Eyes: PERRLA. Extraocular muscles are intact. Conjunctivae clear. Nose patent. NECK: Supple. No carotid bruit. No JVD or thyromegaly. CHEST: Bilaterally symmetrical. HEART: S1 and S2, positive. LUNGS: Clear to auscultation. ABDOMEN: Soft. Bowel sounds present. No organomegaly. EXTREMITIES: No edema. No cyanosis. NEUROLOGIC: The patient is awake and alert. Follows simple commands. MEDICATIONS: Verapamil, Coumadin, daptomycin, doxycycline, fentanyl patch, Levemir, metoprolol, meropenem, Protonix, Spiriva, Xopenex, Zofran. LABORATORY DATA: Hemoglobin 13.4, hematocrit 42.0, white blood cells 25, platelets 126. INR is 2.12. Sodium 137, potassium 4.3, BUN 33, creatinine 1.3, glucose 254. ASSESSMENT AND PLAN: Mr. Marcus Valdovinos is a 57-year-old male with multiple medical problems, status post catheter placement; sepsis with urinary tract infection. The patient has atrial fibrillation with rapid ventricular response, on Coumadin; chronic lung disease; obstructive sleep apnea syndrome, getting bilevel positive airway pressure; paraplegia, secondary to spinal tumor, status post surgery; decubitus ulcer; morbid obesity; bedridden. Encourage bilevel positive airway pressure use. Keep head elevated at 45 degrees. Bronchodilator. Repeat labs. Gastrointestinal and deep venous thrombosis prophylaxis. Appreciated Dr. Ly, Dr. Dunbar, and Dr. Talib Cisneros's input. Thalia Frazier MD
[2018-06-25] MEDS: Levalbuterol 1.25 MG/3 ML Inhal Soln UD IH SCH ×4 (02:51→22:37)
[2018-06-25] MEDS: Pantoprazole 40 mg EC Tab PO SCH ×2 (05:20→17:38)
[2018-06-25 07:31] LABS: BASO # 0.01 K/mm3 (0.0-2.0); BASO % 0.1 % (0.0-3.0); EOS # 0.2 (0.0-0.7); EOS % 1.8 % (1.5-5.0); GRAN # 9.91 (1.4-6.5); GRAN % 82.6 % (50.0-68.0); HEMOGLOBIN 13.3 g/dL (14.0-18.0); LYMPH # 1.2 (1.2-3.4); LYMPH % 9.8 % (22.0-35.0); MEAN CELL VOLUME 83.9 fl (80.0-105.0); MEAN CORPUSCULAR HEMOGLOBIN 26.5 pg (25.0-35.0); MEAN CORPUSCULAR HGB CONC 31.6 g/dl (31.0-37.0); MEAN PLATELET VOLUME 11.7 fl (7.0-11.0); MONO # 0.7 (0.1-0.6); MONO % 5.7 % (1.0-6.0); RBC 5.02 10^6/uL (3.5-6.1); RED CELL DISTRIBUTION WIDTH 15.3 % (11.5-14.5)
[2018-06-25 07:45] LABS: PARTIAL THROMBOPLASTIN TIME 45.1 Seconds (25.1-36.5)
[2018-06-25] MEDS: Insulin Lispro (humaLOG) MEDIUM Coverage SC SCH ×4 (07:59→21:47)
[2018-06-25 08:00] LABS: INR 3.46; PROTHROMBIN TIME 40.8 SECONDS (9.4-12.5)
[2018-06-25 09:01] LABS: ALB/GLOB RATIO 0.9 (1.1-1.8); ALBUMIN 2.9 g/dL (3.0-4.8); ALT/SGPT 32 U/L (7-56); AST/SGOT 14 U/L (17-59); BLOOD UREA NITROGEN 15 mg/dL (7-21); CALCIUM 8.3 mg/dL (8.4-10.5); GFR NON-AFRICAN AMERICAN > 60
--- NOTE | 2018-06-25 09:11 | OP ---
PROCEDURE DATE: 06/21/2018 PREOPERATIVE DIAGNOSES: 1. Urinary retention. 2. Voiding dysfunction. 3. Hematuria. 4. Obesity. POSTOPERATIVE DIAGNOSES: 1. Urinary retention. 2. Voiding dysfunction. 3. Hematuria. 4. Obesity. PROCEDURE: New insertion of a cystotomy tube and a cystogram. COMPLICATIONS: There were no complications. INDICATIONS: See history and physical for further details. A very pleasant 57-year-old gentleman when he has a Ceron catheter that needs change. If they do not change, it will quickly become septic. He had many many admissions both here and [facility]. to change it on a very regular basis. When we change it, it is extremely difficult to change it. It takes many people. We sometimes even do it in the office for the patient's convenience because he prefers it. It is quickly done in the back(00:50) office when he stays on the stretcher and that goes well. When he does not get , he develops whopping sepsis. He is here today for the above listed procedure. PROCEDURE: Insertion of a cystostomy tube, a blind insertion, and a cystogram. BLOOD LOSS: Less than 10 mL. OPERATIVE FINDINGS: I just want to mention his findings: 1. Ceron catheter via urethra had been placed and draining well. 2. We were able to bladder nicely distended. It does not leak. 3. We were able to do a punch cystostomy. See the procedure detail. I used a finder needle, and then the rest went very very smoothly. No complications. No blood loss. DESCRIPTION OF PROCEDURE: After obtaining informed consent, the patient was placed on the table. Routine monitor was placed. Time-out was called to confirm the patient and positioning. We did it in supine position. An indwelling Ceron catheter was placed. We filled up the bladder. We did everything sterile as we can. At this point, we put a little contrast to confirm our positioning. Once we did this, we also saved these film. finder needle, I used an 18-gauge needle. I used it with a biplanar fluoroscopic imaging. Under fluoroscopic guidance and bilateral technique, we were able to identify exactly where the contrast is, and then, I drained out contrast with the finder needle. At this point, I measured the length of that needle because his body is extremely long. This would be helpful, and now, we did insertion of a punch cystostomy. We confirmed our position fluoroscopically. Again, by moving the camera around nicely, we really had a good look of what we had to. At this point, we removed the needle. We blew up the balloon. We removed the stylet and drained out the bladder well. When they did confirm it, I put a little contrast in the balloon just a little enough to confirm everything and a little air. Overall, at this point, I have two Foleys in the bladder; one in the urethra and one in the suprapubic area. They are both in and draining well. I secured in place using suture material. Applied dry sterile dressing. There were no complications. ADDENDUM: , I do this is an outpatient. Given the age, etc., the recurrence of sepsis, etc., we are going to bring him in to the hospital under the care of Dr. Frazier. He can go to the ICU and monitored. He seems to have more amount of sepsis. We do not want to run into any risk. Ankit Ly MD
--- NOTE | 2018-06-25 09:13 | PN ---
DATE: 06/22/2018 SUBJECTIVE: The patient is currently in the ICU with sepsis. See history and physical and operative note. The patient is a very pleasant 57-year-old gentleman, admitted with sepsis. After undergoing a new insertion of the cystostomy tube. procedure itself went uncomplicated. We did use prophylactic antibiotics. Prior to beginning the procedure, the patient received an antibiotic. We prepped everything sterilely . Please see previous admission history and physical for infection. Cultures are currently pending. The patient is now in the ICU. He is being monitored. He looks much better than from the last night's description. Overnight, I spoke to nurse several times. Fever, blood pressure, heart rate, etc., all monitored. The urine output is well monitored. PHYSICAL EXAMINATION: GENERAL: The patient is a well-developed, well-nourished male, in no apparent distress. Currently, he is resting comfortably in his bed. VITAL SIGNS: Noted. Body habitus is noted. Cystotomy tube in good location. I irrigated. It irrigates well, and mostly it irrigates in. Of course, it does not suck out, but it flushes well. I do not think it is obstructed, and the Ceron catheter had been placed and that does work reasonably well. DIAGNOSES: 1. Urosepsis. 2. Hematuria, urinary retention, voiding dysfunction. ASSESSMENT AND PLAN: In summary, a very pleasant gentleman. The plan will be antibiotics now. Multiple consultants are noted on the chart. Then, at some point, we are going to clamp the suprapubic tube. Then, we will clamp the Ceron catheter, and then, once we know that the suprapubic tube is working well, we will then remove the Ceron and then we just with the suprapubic catheter. I spoke to the nurse about the idea of irrigation that it is specifically spanning a little while explaining that the Ceron via the urethra. It is 22. We can use the 20 to 30 mL of irrigation and irrigation, but the bladder from above. The suprapubic catheter is only 12-Tongan, and it is a smaller catheter, and therefore, we have 10 mL and mostly flush it even not irrigated, but just flush it, make sure that is in at least in one direction. Further plans to follow. We are going to follow the patient closely. Ankit Ly MD
[2018-06-25] MEDS: Tiotropium 18 mcg Cap For Inhalation IH SCH (10:12)
[2018-06-25] MEDS: Vancomycin 1gm in NS 250ml 1 GM/250 ML BAG IVPB SCH ×2 (10:12→22:03)
[2018-06-25] MEDS: Nystatin 100,000 Units/gm Cream(15 gm) TOP SCH ×3 (10:28→17:24)
--- NOTE | 2018-06-25 10:32 | CP.PCM.PN ---
<Donald Marie - Last Filed: 06/25/18 13:20> Subjective - Date & Time of Evaluation Date of Evaluation: 06/25/18 Time of Evaluation: 07:15 - Subjective Subjective: ID Progress Note Patient seen and examined. Patient states he feels tired. Denies any recent chest pain, shortness of breath, fever, chills. Objective - Vital Signs/Intake and Output Vital Signs (last 24 hours): Temp Pulse Resp BP Pulse Ox 98.1 F 87 19 178/100 H 97 06/25/18 06:00 06/25/18 10:13 06/25/18 06:00 06/25/18 10:13 06/25/18 06:00 Intake and Output: 06/25/18 06/25/18 06:59 18:59 Intake Total 1850 Output Total 1755 Balance 95 - Medications Medications: Current Medications Dextrose (Dextrose 50% Inj) 0 ml IV STAT PRN; Protocol PRN Reason: Hypoglycemia Protocol Fentanyl (Fentanyl) 25 mcg IV Q5M PRN PRN Reason: Pain, moderate (4-7) Dextrose (Dextrose 5% In Water 1000 Ml) 1,000 mls @ 0 mls/hr IV .Q0M PRN; Protocol PRN Reason: Hypoglycemia Protocol Insulin Human Regular 100 (units/ Sodium Chloride) 100 mls @ 2 mls/hr IV .Q24H PRN; Protocol PRN Reason: TITRATE PER MD ORDER Last Titration: 06/23/18 14:09 Dose: 0 units/hr, 0 mls/hr Meropenem (Merrem Iv 1 Gm Premix) 1 gm in 50 mls @ 100 mls/hr IVPB Q8 GREG; Protocol Stop: 07/01/18 22:01 Vancomycin HCl (Vancomycin 1gm) 1 gm in 250 mls @ 167 mls/hr IVPB Q12H GREG; Protocol Last Admin: 06/25/18 10:12 Dose: 167 mls/hr Insulin Detemir (Levemir) 12 unit SC HS GREG Last Admin: 06/24/18 22:01 Dose: 12 u Insulin Human Lispro (Humalog Med) 0 units SC ACHS GREG; Protocol Last Admin: 06/25/18 07:59 Dose: 3 units Levalbuterol HCl (Xopenex) 1.25 mg IH [id number] GREG Last Admin: 06/25/18 08:10 Dose: 1.25 mg Metoprolol Tartrate (Lopressor) 25 mg PO BID [facility] Last Admin: 06/25/18 10:13 Dose: 25 mg Nystatin (Mycostatin Cream) 0 ea TOP TID [facility] Last Admin: 06/24/18 17:44 Dose: 1 applic Ondansetron HCl (Zofran Inj) 4 mg IVP Q6H PRN PRN Reason: Nausea/Vomiting Last Admin: 06/23/18 20:21 Dose: 4 mg Pantoprazole Sodium (Protonix Ec Tab) 40 mg PO Q12H [facility] Last Admin: 06/25/18 05:20 Dose: 40 mg Tiotropium Chapman (Spiriva) 18 mcg IH DAILY [facility] Last Admin: 06/25/18 10:12 Dose: 18 mcg Verapamil HCl (Calan Tab) 40 mg PO TID [facility] Last Admin: 06/25/18 10:12 Dose: 40 mg Warfarin Sodium (Coumadin) 6 mg PO 1800 [facility]; Protocol Last Admin: 06/24/18 17:48 Dose: 6 mg - Labs Labs: 06/25/18 07:20 06/25/18 08:30 PT 40.8 SECONDS (9.4-12.5) H 06/25/18 07:20 INR 3.46 06/25/18 07:20 APTT 45.1 Seconds (25.1-36.5) H 06/25/18 07:20 - Constitutional Appears: Non-toxic, No Acute Distress - Head Exam Head Exam: ATRAUMATIC, NORMAL INSPECTION, NORMOCEPHALIC - Respiratory Exam Respiratory Exam: Decreased Breath Sounds, NORMAL BREATHING PATTERN. absent: Rales, Rhonchi, Wheezes - Cardiovascular Exam Cardiovascular Exam: RRR, +S1, +S2 - GI/Abdominal Exam GI & Abdominal Exam: Soft, Normal Bowel Sounds. absent: Tenderness - Extremities Exam Extremities Exam: Pedal Edema (Trace b/l) - Neurological Exam Neurological Exam: Alert, Awake, Oriented x3 - Psychiatric Exam Psychiatric exam: Normal Affect, Normal Mood - Skin Skin Exam: Intact, Normal Color, Warm Assessment and Plan - Assessment and Plan (Free Text) Plan: severe sepsis from right sided HCAP and complicated UTI with E. faecalis and ESBL-producing E. coli s/p urologic procedure hx of sepsis due to complicated UTI associated with indwelling montague catheter, with urine growing E. coli hx of severe sepsis with acute renal failure due to probable complicated UTI associated with indwelling montague catheter, grew ESBL-producing E. coli hx of HTN hx of DM hx of morbid obesity with BMI 53 hx of chronic montague catheter use typically changed every month hx of chronic atrial fibrillation S/P laminectomy in 2014 Plan Improving leukocytosis, afebrile Continue Merrem and Vancomycin, day 5 Urine culture positive for ESBL producing E. coli and E.faecalis Will continue to monitor closely Cynthia, PGY-3 <Talib Cisneros S - Last Filed: 06/25/18 14:15> Objective - Vital Signs/Intake and Output Vital Signs (last 24 hours): Temp Pulse Resp BP Pulse Ox 97.4 F L 85 20 168/91 H 97 06/25/18 12:00 06/25/18 12:00 06/25/18 12:00 06/25/18 13:36 06/25/18 06:00 Intake and Output: 06/25/18 06/25/18 06:59 18:59 Intake Total 1850 Output Total 1755 Balance 95 - Medications Medications: Current Medications Dextrose (Dextrose 50% Inj) 0 ml IV STAT PRN; Protocol PRN Reason: Hypoglycemia Protocol Hydralazine HCl (Apresoline) 10 mg PO QID PRN PRN Reason: for sbp>170 Last Admin: 06/25/18 11:52 Dose: 10 mg Dextrose (Dextrose 5% In Water 1000 Ml) 1,000 mls @ 0 mls/hr IV .Q0M PRN; Protocol PRN Reason: Hypoglycemia Protocol Insulin Human Regular 100 (units/ Sodium Chloride) 100 mls @ 2 mls/hr IV .Q24H PRN; Protocol PRN Reason: TITRATE PER MD ORDER Last Titration: 06/23/18 14:09 Dose: 0 units/hr, 0 mls/hr Meropenem (Merrem Iv 1 Gm Premix) 1 gm in 50 mls @ 100 mls/hr IVPB Q8 GREG; Protocol Stop: 07/01/18 22:01 Last Admin: 06/25/18 13:14 Dose: 100 mls/hr Vancomycin HCl (Vancomycin 1gm) 1 gm in 250 mls @ 167 mls/hr IVPB Q12H GREG; Protocol Last Admin: 06/25/18 10:12 Dose: 167 mls/hr Insulin Detemir (Levemir) 12 unit SC HS [facility] Last Admin: 06/24/18 22:01 Dose: 12 u Insulin Human Lispro (Humalog Med) 0 units SC ACHS [facility]; Protocol Last Admin: 06/25/18 13:18 Dose: 5 units Levalbuterol HCl (Xopenex) 1.25 mg IH [id number] [facility] Last Admin: 06/25/18 13:24 Dose: 1.25 mg Magnesium Oxide (Mag-Ox) 400 mg PO BID [facility] Stop: 06/26/18 23:59 Metoprolol Tartrate (Lopressor) 25 mg PO BID [facility] Last Admin: 06/25/18 10:13 Dose: 25 mg Nystatin (Mycostatin Cream) 0 ea TOP TID [facility] Last Admin: 06/25/18 13:19 Dose: 1 applic Ondansetron HCl (Zofran Inj) 4 mg IVP Q6H PRN PRN Reason: Nausea/Vomiting Last Admin: 06/23/18 20:21 Dose: 4 mg Pantoprazole Sodium (Protonix Ec Tab) 40 mg PO Q12H [facility] Last Admin: 06/25/18 05:20 Dose: 40 mg Potassium Phos/Sodium Phos (Neutra-Phos) 1 pkt PO TID [facility] Stop: 06/26/18 23:00 Last Admin: 06/25/18 13:13 Dose: 1 pkt Tiotropium Chapman (Spiriva) 18 mcg IH DAILY [facility] Last Admin: 06/25/18 10:12 Dose: 18 mcg Verapamil HCl (Calan Sr Tab) 240 mg PO DAILY [facility] Warfarin Sodium (Coumadin) 6 mg PO 1800 [facility]; Protocol Last Admin: 06/24/18 17:48 Dose: 6 mg - Labs Labs: 06/25/18 07:20 06/25/18 08:30 PT 40.8 SECONDS (9.4-12.5) H 06/25/18 07:20 INR 3.46 06/25/18 07:20 APTT 45.1 Seconds (25.1-36.5) H 06/25/18 07:20 Assessment and Plan - Assessment and Plan (Free Text) Plan: Infectious diseases Attending Physician Attestation Patient seen and examined, discussed with biomedical equipment support specialist. I have reviewed the patient's history of present illness, past medical, social, personal and family histories, pertinent physical exam findings, course so far in this hospital admission, pertinent laboratory and imaging results. I agree with the above findings, assessment and plan. In addition, continue Merrem and Vancomycin for patient with severe sepsis from UTI with E. faecalis and ESBL E. coli, on top of right sided HCAP. Will continue to monitor clinically.
[2018-06-25] MEDS ORDERED: Verapamil 180 mg ER Tab PO STA (10:38)
--- NOTE | 2018-06-25 11:23 | CP.PCM.PCO ---
Assessment/Plan Progress Note - Assessment/Plan Assessment (Free Text): Braulio Zelaya DO, PGY-2: House Doctor I was asked to evaluate this patient because he had complained to the nurse of chest pain. He was sitting comfortably and sleeping at the time of my encounter. By speaking in a loud voice and patting on the patient's chest, he able to wake up. He reports that whenever the nurses change him and he lies on his side he get pain located in the left upper abdomen. He pointed to the pain in the left epigastrium, just below the left sternoclavicular joint. He reports the pain is a 6/10, characterized as sharp and stabbing; reports nothing has improved the pain aside from time. He is not short of breath or diaphoretic. He tolerated his breakfast without any difficulty. I do not believe the pain to be cardiac in nature, most likely GI or muscoloskeletal. Should the patient's pain persist or evolve, the house doctor or another qualified healthcare provider, should be called to re-assess the patient.
--- NOTE | 2018-06-25 11:23 | CP.PCM.PN ---
<ZacariasMatthewjeferson - Last Filed: 06/25/18 13:58> Subjective - Date & Time of Evaluation Date of Evaluation: 06/25/18 Time of Evaluation: 08:45 - Subjective Subjective: PGY-4 GI Fellow Prog Note Pt lying in bed when seen this AM. States he is doing OK. No further signs of N/V. States he is tolerating diet without problems. He denies bowel movement in last 24 hrs but he states that he often doesn't go everyday. 5 point ROS negative other than stated above Objective - Vital Signs/Intake and Output Vital Signs (last 24 hours): Temp Pulse Resp BP Pulse Ox 98.1 F 87 19 178/100 H 97 06/25/18 06:00 06/25/18 10:13 06/25/18 06:00 06/25/18 10:13 06/25/18 06:00 Intake and Output: 06/25/18 06/25/18 06:59 18:59 Intake Total 1850 Output Total 1755 Balance 95 - Medications Medications: Current Medications Dextrose (Dextrose 50% Inj) 0 ml IV STAT PRN; Protocol PRN Reason: Hypoglycemia Protocol Fentanyl (Fentanyl) 25 mcg IV Q5M PRN PRN Reason: Pain, moderate (4-7) Hydralazine HCl (Apresoline) 10 mg PO QID PRN PRN Reason: for sbp>170 Dextrose (Dextrose 5% In Water 1000 Ml) 1,000 mls @ 0 mls/hr IV .Q0M PRN; Protocol PRN Reason: Hypoglycemia Protocol Insulin Human Regular 100 (units/ Sodium Chloride) 100 mls @ 2 mls/hr IV .Q24H PRN; Protocol PRN Reason: TITRATE PER MD ORDER Last Titration: 06/23/18 14:09 Dose: 0 units/hr, 0 mls/hr Meropenem (Merrem Iv 1 Gm Premix) 1 gm in 50 mls @ 100 mls/hr IVPB Q8 [facility]; Protocol Stop: 07/01/18 22:01 Vancomycin HCl (Vancomycin 1gm) 1 gm in 250 mls @ 167 mls/hr IVPB Q12H [facility]; Protocol Last Admin: 06/25/18 10:12 Dose: 167 mls/hr Insulin Detemir (Levemir) 12 unit SC GREG Last Admin: 06/24/18 22:01 Dose: 12 u Insulin Human Lispro (Humalog Med) 0 units SC ACHS [facility]; Protocol Last Admin: 06/25/18 07:59 Dose: 3 units Levalbuterol HCl (Xopenex) 1.25 mg IH [id number] [facility] Last Admin: 06/25/18 08:10 Dose: 1.25 mg Metoprolol Tartrate (Lopressor) 25 mg PO BID [facility] Last Admin: 06/25/18 10:13 Dose: 25 mg Nystatin (Mycostatin Cream) 0 ea TOP TID [facility] Last Admin: 06/25/18 10:28 Dose: 1 applic Ondansetron HCl (Zofran Inj) 4 mg IVP Q6H PRN PRN Reason: Nausea/Vomiting Last Admin: 06/23/18 20:21 Dose: 4 mg Pantoprazole Sodium (Protonix Ec Tab) 40 mg PO Q12H [facility] Last Admin: 06/25/18 05:20 Dose: 40 mg Tiotropium Southmayd (Spiriva) 18 mcg IH DAILY [facility] Last Admin: 06/25/18 10:12 Dose: 18 mcg Verapamil HCl (Calan Sr Tab) 240 mg PO DAILY [facility] Warfarin Sodium (Coumadin) 6 mg PO 1800 [facility]; Protocol Last Admin: 06/24/18 17:48 Dose: 6 mg - Labs Labs: 06/25/18 07:20 06/25/18 08:30 PT 40.8 SECONDS (9.4-12.5) H 06/25/18 07:20 INR 3.46 06/25/18 07:20 APTT 45.1 Seconds (25.1-36.5) H 06/25/18 07:20 - Constitutional Appears: No Acute Distress, Chronically Ill - Head Exam Head Exam: ATRAUMATIC Additional comments: dry flakey skin - Eye Exam Eye Exam: EOMI. absent: Scleral icterus - ENT Exam ENT Exam: Mucous Membranes Moist. absent: Mucous Membranes Dry - Respiratory Exam Respiratory Exam: NORMAL BREATHING PATTERN. absent: Accessory Muscle Use, Respiratory Distress - GI/Abdominal Exam GI & Abdominal Exam: Distended, Soft, Normal Bowel Sounds. 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 Active treatment of sepsis 2/2 UTI with cystostomy tube placement on 06/21/17 complicated by atrial flutter with rapid ventricular rate. GI consultation for recurrent emesis with concern for episode of coffee- ground emesis in setting of atrial flutter with rapid rate and sepsis 2/2 ESBL UTI . No prior colonoscopy. Plan: - Continue PPI - Warfarin for atrial flutter per primary/cardiology - Advance as tolerated - Outpatient f/u for screening CSPY - Miralax PRN constipation Pt seen and examined with Dr. Patel; please see attestation for further recs/changes. <Abraham Patel - Last Filed: 06/25/18 14:13> Objective - Vital Signs/Intake and Output Vital Signs (last 24 hours): Temp Pulse Resp BP Pulse Ox 97.4 F L 85 20 168/91 H 97 06/25/18 12:00 06/25/18 12:00 06/25/18 12:00 06/25/18 13:36 06/25/18 06:00 Intake and Output: 06/25/18 06/25/18 06:59 18:59 Intake Total 1850 Output Total 1755 Balance 95 - Medications Medications: Current Medications Dextrose (Dextrose 50% Inj) 0 ml IV STAT PRN; Protocol PRN Reason: Hypoglycemia Protocol Hydralazine HCl (Apresoline) 10 mg PO QID PRN PRN Reason: for sbp>170 Last Admin: 06/25/18 11:52 Dose: 10 mg Dextrose (Dextrose 5% In Water 1000 Ml) 1,000 mls @ 0 mls/hr IV .Q0M PRN; Protocol PRN Reason: Hypoglycemia Protocol Insulin Human Regular 100 (units/ Sodium Chloride) 100 mls @ 2 mls/hr IV .Q24H PRN; Protocol PRN Reason: TITRATE PER MD ORDER Last Titration: 06/23/18 14:09 Dose: 0 units/hr, 0 mls/hr Meropenem (Merrem Iv 1 Gm Premix) 1 gm in 50 mls @ 100 mls/hr IVPB Q8 [facility]REG; Protocol Stop: 07/01/18 22:01 Last Admin: 06/25/18 13:14 Dose: 100 mls/hr Vancomycin HCl (Vancomycin 1gm) 1 gm in 250 mls @ 167 mls/hr IVPB Q12H [facility]; Protocol Last Admin: 06/25/18 10:12 Dose: 167 mls/hr Insulin Detemir (Levemir) 12 unit SC HS [facility] Last Admin: 06/24/18 22:01 Dose: 12 u Insulin Human Lispro (Humalog Med) 0 units SC ACHS [facility]; Protocol Last Admin: 06/25/18 13:18 Dose: 5 units Levalbuterol HCl (Xopenex) 1.25 mg IH [id number] [facility] Last Admin: 06/25/18 13:24 Dose: 1.25 mg Magnesium Oxide (Mag-Ox) 400 mg PO BID [facility] Stop: 06/26/18 23:59 Metoprolol Tartrate (Lopressor) 25 mg PO BID [facility] Last Admin: 06/25/18 10:13 Dose: 25 mg Nystatin (Mycostatin Cream) 0 ea TOP TID [facility] Last Admin: 06/25/18 13:19 Dose: 1 applic Ondansetron HCl (Zofran Inj) 4 mg IVP Q6H PRN PRN Reason: Nausea/Vomiting Last Admin: 06/23/18 20:21 Dose: 4 mg Pantoprazole Sodium (Protonix Ec Tab) 40 mg PO Q12H [facility] Last Admin: 06/25/18 05:20 Dose: 40 mg Potassium Phos/Sodium Phos (Neutra-Phos) 1 pkt PO TID [facility] Stop: 06/26/18 23:00 Last Admin: 06/25/18 13:13 Dose: 1 pkt Tiotropium Southmayd (Spiriva) 18 mcg IH DAILY [facility] Last Admin: 06/25/18 10:12 Dose: 18 mcg Verapamil HCl (Calan Sr Tab) 240 mg PO DAILY [facility] Warfarin Sodium (Coumadin) 6 mg PO 1800 [facility]; Protocol Last Admin: 06/24/18 17:48 Dose: 6 mg - Labs Labs: 06/25/18 07:20 06/25/18 08:30 PT 40.8 SECONDS (9.4-12.5) H 06/25/18 07:20 INR 3.46 06/25/18 07:20 APTT 45.1 Seconds (25.1-36.5) H 06/25/18 07:20 Attending/Attestation - Attestation I have personally seen and examined this patient.: Yes I have fully participated in the care of the patient.: Yes I have reviewed all pertinent clinical information, including history, physical exam and plan: Yes Notes (Text): 06/25/18 14:10 I have seen and examined patient with GI fellow. No acute events overnight. He reports mild epigastric discomfort but denies nausea, vomiting, fever/chills. Tolerating PO diet without difficulty. Review of vitals from today shows elevated BP. Cerebral palsy Paraplegia Paroxysmal atrial fibrillation COPD HTN DM UTI - Diet as tolerated - Continue with anti-biotic therapy as per medical team - Continue with PPI therapy - Anti-emetic therapy PRN - H/H stable, continue to monitor - No further planned GI interventions at this time, will sign off case. Please reconsult as necessary, thank you.
--- NOTE | 2018-06-25 12:32 | PN ---
DATE: 06/25/2018 REFERRING PHYSICIAN: Dr. Ly. SUBJECTIVE: The patient is lying in bed, asleep, easily arousable. No overnight events reported. Reports wearing BiPAP machine last night. No acute distress. No headache, rhinitis, cough, shortness of breath, chest pain, abdominal pain, nausea, vomiting, diarrhea, or leg pain or swelling reported. PHYSICAL EXAMINATION: VITAL SIGNS: Blood pressure 172/85, pulse 76, temperature 98, oxygen saturation 96. GENERAL: No acute distress. HEENT: Moist mucous membrane. Mallampati score is 4. Crowded airway. NECK: Supple. No JVD. LUNGS: Fair airflow bilaterally with few scattered rhonchi. CARDIOVASCULAR: S1, S2 audible. ABDOMEN: Soft, nontender, no distention. Indwelling catheter present. EXTREMITIES: Trace bilateral lower extremity edema. NEUROLOGICAL: Asleep, easily arousable, verbal. MEDICATIONS: Reviewed. Fentanyl 25 mcg p.r.n., hydralazine 10 mg four times a day p.r.n., Levemir 12 units subcu at bedtime, Humalog sliding scale before meal and at bedtime, Xopenex 1.25 mg inhalation every 6 hours, meropenem 1 g every 8 hours, metoprolol tartrate 25 mg twice a day, nystatin topically three times a day to affected area, Zofran 4 mg every 6 hours p.r.n., Protonix 40 mg every 12 hours, Spiriva 18 mcg daily, vancomycin 1 g every 12 hours, verapamil 240 mg daily, Coumadin 6 mg daily. LABORATORY DATA: Reviewed. WBC 12, RBC 5.02, hemoglobin 13.3, hematocrit 42.1, platelets 135. PT 40.8, INR 3.46, APTT 45.1. Sodium 135, potassium 4.1, chloride 102, carbon dioxide 20, anion gap 8, BUN 15, creatinine 0.8, GFR greater than 60, POC glucose 235, random glucose 229, calcium 8.3, phosphorus 1.9, magnesium 1.9, total bilirubin 0.6, AST 14, ALT 32, alkaline phosphatase 94, total protein 6.9, albumin 2.9, globulin 3.2, albumin-globulin ratio 0.9. Blood cultures preliminary no growth after three days. 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 Pulmonary point of view, continue to encourage bilevel positive airway pressure use at bedtime. Keep head elevated at 45 degrees. Sleep apnea precaution. Continue inhaled bronchodilators, antibiotics per Infectious Disease. Gastric prophylaxis. The patient currently on anticoagulation therapy. The patient seen and examined with Dr. Dunbar. Discussed assessment and plan as described above. Thank you for this consult. We will follow with you. Diego Barnes APN Yosef Dunbar MD
[2018-06-25] MEDS: Potassium & Sodium Phosphate PO SCH ×2 (13:13→17:23)
[2018-06-25] MEDS: Meropenem IV 1 gm in NS 1 GM/50 ML BAG IVPB SCH ×2 (13:14→23:15)
--- NOTE | 2018-06-25 13:33 | PN ---
DATE: 06/25/2018 REASON FOR CONSULTATION: SVT/atrial flutter with rapid rate converted to normal sinus, history of paroxysmal atrial fibrillation, sepsis possibly urosepsis. SUBJECTIVE: The patient denies any chest pain,shortness of breath or any palpitation. OBJECTIVE: GENERAL: Not in apparent distress. VITAL SIGNS: Temperature afebrile, heart rate 87 and blood pressure 178/100. HEENT: PERRLA. Extraocular muscles intact. NECK: Supple. No carotid bruit. No thyromegaly. CHEST: Clear to auscultation. HEART: S1 and S2 regular. ABDOMEN: Soft. EXTREMITIES: Clubbing and cyanosis negative. LABORATORY DATA: Blood workup as follows: WBC 12, hemoglobin 13.3, hematocrit 42.1 and platelet count 135. Chemistry showed sodium 135, potassium 4.5, chloride 102, carbon dioxide 29, anion gap of 8, BUN 15 and creatinine 0.8. Total protein 6.9, albumin 2.9, albumin-globulin ratio 0.9. INR 3.46. IMPRESSION: A 57-year-old morbidly obese male, bed bound, hypospadias, recurrent urinary tract infection, history of paroxysmal atrial fibrillation flutter, cerebral palsy, congestive heart failure, bed bound, asthma, cerebrovascular accident, questionable history of bilateral deep venous thrombosis questionable history, admitted for suprapubic cystostomy. Postop course complicated by atrial fibrillation flutter, septic shock. WBC went up to 50,000. The patient was treated with IV antibiotic Cardizem, now patient converted to normal sinus. Currently, he is on verapamil 40 mg 3 times daily, blood pressure still not controlled, we change to verapamil to 40 mg from tomorrow and give 180 mg extended relief today and put hydralazine 10 mg every 6 hours. INR was supratherapeutic 3.46, so we will hold Coumadin. Repeat INR tomorrow. If remained stable, we will discontinue telemetry. Continue in addition to metoprolol 25 mg p.o. twice daily. Discontinue IV fluid. If remained stable, we will discontinue telemetry. Thank you Dr. Frazier for providing us the opportunity in taking care of the patient, Marcus Valdovinos. Yosef Del Toro MD [facility] # [id number]
[2018-06-25] MEDS: Magnesium Oxide 400 mg Tab UD PO SCH (17:23)
[2018-06-25] MEDS: Insulin Detemir 100 units/ml Vial (Levemir) SC SCH (22:03)
--- NOTE | 2018-06-26 01:28 | PN ---
DATE: 06/25/2018 SUBJECTIVE: The patient was seen and examined at bedside 06/25/2018. Looking comfortable. No fever. No chills. No nausea, vomiting, hematuria or hematochezia. No headaches or dizziness. No chest pain or palpitations. PHYSICAL EXAMINATION: VITAL SIGNS: Blood pressure 117/80, pulse 76, temperature 98, and oxygen saturation 96%. HEENT: Head is normocephalic and atraumatic. Eyes PERRLA. Extraocular muscles are intact. Conjunctivae clear. Nose patent. Mucous membrane moist. NECK: Supple. No carotid bruits, JVD or thyromegaly. CHEST: Bilateral symmetrical. HEART: S1 and S2 positive. ABDOMEN: Soft. Bowel sounds present. No organomegaly. EXTREMITIES: Trace edema. No cyanosis. NEUROLOGIC: The patient awake and follow simple commands. MEDICATIONS: Fentanyl patch, hydralazine, Levemir, insulin, Xopenex, meropenem, metoprolol, nystatin, Zofran, Protonix, Spiriva, vancomycin and Coumadin. LABORATORY DATA: White blood cells 12, hemoglobin 13.3, hematocrit 42.1, and platelets 135. BUN 15, creatinine 0.8, AST 14, and ALT 32. ASSESSMENT AND PLAN: Mr. Marcus Valdovinos is a 57-year-old male, status post suprapubic catheter placement, sepsis, urinary tract infection, status post atrial fibrillation with rapid ventricular response, he is on Coumadin, obstructive sleep apnea syndrome, chronic obstructive lung disease, paraplegia, sacrospinal tumor, accidental penectomy, decubitus ulcer, diabetes mellitus, chronic obstructive pulmonary disease. The patient is bedridden, getting the Ceron catheter change on monthly basis from Dr. Ankit Ly. This time he has septic shock. Admitted to the unit. Started antibiotics, improving. Repeat labs. We will follow. Thalia Frazier MD
[2018-06-26] MEDS: Levalbuterol 1.25 MG/3 ML Inhal Soln UD IH SCH ×4 (03:27→20:00)
[2018-06-26] MEDS: Meropenem IV 1 gm in NS 1 GM/50 ML BAG IVPB SCH ×3 (06:07→21:02)
[2018-06-26] MEDS: Pantoprazole 40 mg EC Tab PO SCH ×2 (06:07→17:52)
[2018-06-26 07:07] LABS: BASO # 0.02 K/mm3 (0.0-2.0); BASO % 0.2 % (0.0-3.0); EOS # 0.3 (0.0-0.7); EOS % 3.4 % (1.5-5.0); GRAN # 6.69 (1.4-6.5); GRAN % 70.7 % (50.0-68.0); HEMOGLOBIN 13.2 g/dL (14.0-18.0); LYMPH # 1.7 (1.2-3.4); LYMPH % 18.3 % (22.0-35.0); MEAN CELL VOLUME 84.1 fl (80.0-105.0); MEAN CORPUSCULAR HEMOGLOBIN 26.5 pg (25.0-35.0); MEAN CORPUSCULAR HGB CONC 31.5 g/dl (31.0-37.0); MEAN PLATELET VOLUME 11.8 fl (7.0-11.0); MONO # 0.7 (0.1-0.6); MONO % 7.4 % (1.0-6.0); RBC 4.98 10^6/uL (3.5-6.1); RED CELL DISTRIBUTION WIDTH 15.1 % (11.5-14.5); WHITE BLOOD COUNT 9.5 10^3/uL (4.5-11.0)
[2018-06-26 07:12] LABS: PARTIAL THROMBOPLASTIN TIME 39.1 Seconds (25.1-36.5)
[2018-06-26 07:21] LABS: ALB/GLOB RATIO 0.9 (1.1-1.8); ALBUMIN 2.9 g/dL (3.0-4.8); ALT/SGPT 41 U/L (7-56); AST/SGOT 23 U/L (17-59); BLOOD UREA NITROGEN 9 mg/dL (7-21); CALCIUM 8.5 mg/dL (8.4-10.5); GFR NON-AFRICAN AMERICAN > 60
[2018-06-26 07:26] LABS: PROTHROMBIN TIME 51.3 SECONDS (9.4-12.5)
[2018-06-26 07:58] LABS: INR 4.33
[2018-06-26] MEDS: Magnesium Oxide 400 mg Tab UD PO SCH ×2 (09:04→17:22)
[2018-06-26] MEDS: Tiotropium 18 mcg Cap For Inhalation IH SCH (09:04)
[2018-06-26] MEDS: Insulin Lispro (humaLOG) MEDIUM Coverage SC SCH ×4 (09:04→21:27)
[2018-06-26] MEDS: Verapamil 240 mg ER Tab PO SCH (09:04)
[2018-06-26] MEDS: Potassium & Sodium Phosphate PO SCH ×3 (09:04→17:22)
[2018-06-26] MEDS: Nystatin 100,000 Units/gm Cream(15 gm) TOP SCH ×3 (09:05→17:24)
[2018-06-26] MEDS: Vancomycin 1gm in NS 250ml 1 GM/250 ML BAG IVPB SCH ×2 (09:53→21:27)
--- NOTE | 2018-06-26 11:25 | PN ---
DATE: 06/26/2018 REASON FOR CONSULTATION: Followup, SVT, flutter with rapid response converted to normal sinus, history of paroxysmal atrial fibrillation, sepsis, possibly urosepsis. SUBJECTIVE: The patient denied any chest pain, shortness of breath, any palpitation yesterday. Pain in the left upper quadrant of stomach, but no chest pain. OBJECTIVE: GENERAL: Lying flat in the bed, not in apparent distress. VITAL SIGNS: Temperature afebrile, heart rate 64, blood pressure 156/83. HEENT: PERRLA. Extraocular muscles are intact. NECK: Supple. No carotid bruits or thyromegaly. CHEST: Clear to auscultation. HEART: S1 and S2 regular. ABDOMEN: Soft. EXTREMITIES: Clubbing and cyanosis negative. LABORATORY DATA: WBC 9.5, hemoglobin , hematocrit 41.9, platelet count 141. Chemistry shows sodium 130, potassium 4, chloride 99, carbon dioxide 36, anion gap of 6, BUN 9, creatinine 0.8. IMPRESSION: A 57-year-old morbidly obese male, bed bound, history of hypospadias, recurrent urinary tract infection, history of paroxysmal atrial fibrillation, flutter, cerebral palsy, congestive heart failure, bed bound, asthma, cerebrovascular accident, questionable history of bilateral deep vein thrombosis, history of obstructive sleep apnea, admitted for suprapubic cystostomy. Postop course complicated by atrial fibrillation, flutter, septic shock. WBC went to 50,000; intravenous started antibiotic Cardizem, converted to normal sinus, currently on verapamil 40 mg 3 times a day, blood pressure changed yesterday from 40 to CD 180 and then start from this morning 240 mg, relatively stable heart rate. No chest pain. Yesterday complained of one episode of left lower quadrant pain, atypical. I started him on Coumadin as the patient was on Coumadin before. INR went to supratherapeutic 3.46, today is 4.33. Coumadin is on hold. RECOMMENDATION: Repeat Coumadin level tomorrow. Continue verapamil 240 mg daily. Coumadin on hold. Continue Lopressor 25 p.o. b.i.d., continue supplementing her. Yesterday, mag was low and phosphorus was low. Today, mag is 1.8, phosphorus improved to 2.5 after supplementation. We will repeat INR tomorrow and discontinue telemetry. We will repeat CBC, PT/INR tomorrow as well and SMA-7. The patient is okay from a cardiac point of view to be transferred back to the care home when cleared from urologist. We will hold Coumadin as mentioned and restart when INR becomes 2.5. Follow up PT/INR in the morning as well as SMA-7 and CBC. Thank you Dr. Frazier for providing us opportunity in taking care of the patient, Marcus Valdovinos. Yosef Del Toro MD
--- NOTE | 2018-06-26 12:41 | PN ---
DATE: 06/26/2018 PULMONARY PROGRESS NOTE REFERRING PHYSICIAN: Dr. Ly. SUBJECTIVE: The patient is lying in bed. No acute distress. Reports wearing BiPAP machine last night. Yesterday the patient had episode where he complained of chest pain. The patient was examined by branden AYON and it was determined to most likely be GI/musculoskeletal. Today the patient does not complain of chest pain, but reports having slight nose bleed this morning. No headache, rhinitis, shortness of breath, cough, chest pain, abdominal pain, nausea, vomiting, diarrhea or leg pain reported. OBJECTIVE: GENERAL: No acute distress. VITAL SIGNS: Blood pressure 156/83, pulse 64, temperature 97.9, oxygen saturation 98%. HEENT: Moist mucous membranes. Crowded airway. Mallampati score of 4. NECK: Supple. No JVD. LUNGS: Fair airflow bilaterally, scattered rhonchi. CARDIOVASCULAR: S1 and S2 audible. ABDOMEN: Soft and nontender. No distention. Indwelling catheter. EXTREMITIES: Trace bilateral lower extremity edema. NEUROLOGIC: Awake, alert and verbal. Follows commands. MEDICATIONS: Reviewed. Dextrose 5% in water 1000 mL p.r.n., hydralazine 10 mg 4 times a day p.r.n. for systolic blood pressure greater than 170, Levemir 12 units subcutaneously at bedtime, Humalog sliding scale a.c. and at bedtime, Xopenex 1.25 mg inhalation every 6 hours, magnesium oxide 400 mg twice a day, meropenem 1 g every 8 hours, metoprolol tartrate 25 mg twice a day, nystatin topically 3 times a day to affected area, Zofran 4 mg IV push every 6 hours p.r.n., Protonix 40 mg every 12 hours, Nutrophos one packet 3 times a day, Spiriva 18 mcg inhalation daily, vancomycin 1 g every 12 hours, verapamil 240 mg daily, Coumadin 6 mg daily. LABORATORY DATA: Reviewed. WBC 9.5, RBC 4.98, hemoglobin 13.2, hematocrit 41.9, and platelets 141. PT 51.3, INR 4.33, APTT 39.1. Sodium 137, potassium 4.0, chloride 99, carbon dioxide 36, anion gap 6, BUN 9, creatinine 0.8, GFR greater than 60, POC glucose 165, random glucose 174, calcium 8.5, phosphorus 2.5, magnesium 1.8, total bilirubin 0.8, AST 23, ALT 41, alkaline phosphatase 86, total protein 6, albumin 2.9, globulin 3.2, albumin-globulin ratio 0.9. 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 We will add Flonase and nasal saline. Continue gastric prophylaxis. The patient is currently on anticoagulation therapy which is on hold due to elevated INR, PT/INR to be repeated in the morning. Continue to encourage bilevel positive airway pressure use at bedtime. Sleep apnea precaution, head of bed elevated at 45 degrees. Continue inhaled bronchodilators, antibiotics per Infectious Disease. Pressure ulcer precautions. We will order EKG and cardiac enzymes to be done. The patient seen and examined with Dr. Dunbar. Discussed assessment and plan as described above. Thank you for this consult and we will follow with you. Diego Barnes APN Yosef Dunbar MD [facility]
[2018-06-26 13:15] LABS: TROPONIN I 0.01 ng/mL
--- NOTE | 2018-06-26 13:19 | CP.PCM.PN ---
Subjective - Date & Time of Evaluation Date of Evaluation: 06/25/18 Time of Evaluation: 11:55 - Subjective Subjective: Comfortable, not in distress, no abdominal pain, but having intermittent blockage of his urinary catheter. Objective - Vital Signs/Intake and Output Vital Signs (last 24 hours): Temp Pulse Resp BP Pulse Ox 97.7 F 78 18 155/90 H 96 06/24/18 12:00 06/24/18 12:00 06/24/18 12:00 06/24/18 09:49 06/24/18 06:00 Intake and Output: 06/24/18 06/24/18 06:59 18:59 Intake Total 800 Output Total 900 Balance -100 - Medications Medications: Current Medications Dextrose (Dextrose 50% Inj) 0 ml IV STAT PRN; Protocol PRN Reason: Hypoglycemia Protocol Doxycycline Hyclate (Doryx) 100 mg PO Q12 [facility]; Protocol Fentanyl (Fentanyl) 25 mcg IV Q5M PRN PRN Reason: Pain, moderate (4-7) Sodium Chloride (Sodium Chloride 0.9%) 1,000 mls @ 100 mls/hr IV .Q10H [facility] Last Admin: 06/24/18 00:35 Dose: Not Given Dextrose (Dextrose 5% In Water 1000 Ml) 1,000 mls @ 0 mls/hr IV .Q0M PRN; Protocol PRN Reason: Hypoglycemia Protocol Daptomycin 650 mg/ Sodium (Chloride) 100 mls @ 200 mls/hr IV Q24H [facility] Stop: 06/27/18 12:16 Last Admin: 06/23/18 11:52 Dose: 200 mls/hr Insulin Human Regular 100 (units/ Sodium Chloride) 100 mls @ 2 mls/hr IV .Q24H PRN; Protocol PRN Reason: TITRATE PER MD ORDER Last Titration: 06/23/18 14:09 Dose: 0 units/hr, 0 mls/hr Meropenem (Merrem Iv 1 Gm Premix) 1 gm in 50 mls @ 100 mls/hr IVPB Q12 [facility]; Protocol Stop: 07/01/18 10:16 Last Admin: 06/24/18 11:36 Dose: 100 mls/hr Insulin Detemir (Levemir) 12 unit SC HS [facility] Last Admin: 06/23/18 22:00 Dose: 12 u Insulin Human Lispro (Humalog Med) 0 units SC ACHS [facility]; Protocol Last Admin: 06/24/18 11:36 Dose: 5 units Levalbuterol HCl (Xopenex) 1.25 mg IH [id number] [facility] Last Admin: 06/24/18 07:53 Dose: 1.25 mg Metoprolol Tartrate (Lopressor) 25 mg PO BID [facility] Last Admin: 06/24/18 09:46 Dose: 25 mg Nystatin (Mycostatin Cream) 0 ea TOP TID [facility] Last Admin: 06/24/18 11:37 Dose: 1 applic Ondansetron HCl (Zofran Inj) 4 mg IVP Q6H PRN PRN Reason: Nausea/Vomiting Last Admin: 06/23/18 20:21 Dose: 4 mg Oxycodone/Acetaminophen (Percocet 5/325 Mg Tab) 1 tab PO Q6H PRN PRN Reason: Pain, moderate (4-7) Stop: 06/24/18 16:35 Last Admin: 06/22/18 00:00 Dose: 1 tab Pantoprazole Sodium (Protonix Inj) 40 mg IVP Q12 [facility] Last Admin: 06/24/18 09:49 Dose: 40 mg Tiotropium [place] (Spiriva) 18 mcg IH DAILY [facility] Last Admin: 06/24/18 09:49 Dose: 18 mcg Verapamil HCl (Calan Tab) 40 mg PO TID [facility] Last Admin: 06/24/18 09:49 Dose: 40 mg Warfarin Sodium (Coumadin) 6 mg PO 1800 [facility]; Protocol - Labs Labs: 06/24/18 07:35 06/24/18 07:35 PT 24.7 SECONDS (9.4-12.5) H 06/24/18 07:35 INR 2.12 06/24/18 07:35 APTT 33.2 Seconds (25.1-36.5) 06/24/18 07:35 - Constitutional Appears: Chronically Ill - Head Exam Head Exam: NORMAL INSPECTION - Respiratory Exam Respiratory Exam: Decreased Breath Sounds - Cardiovascular Exam Cardiovascular Exam: +S1, +S2 - GI/Abdominal Exam GI & Abdominal Exam: Soft. absent: Tenderness Assessment and Plan - Assessment and Plan (Free Text) Plan: Assessment severe sepsis from right sided HCAP and complicated UTI with E. faecalis and ESBL-producing E. coli in this patient who underwent a urologic procedure history of sepsis due to complicated UTI associated with indwelling montague catheter, with urine growing E. coli history of severe sepsis with acute renal failure due to probable complicated UTI associated with indwelling montague catheter, grew ESBL-producing E. coli HTN DM morbid obesity with BMI 53 chronic montague catheter use typically changed every month chronic atrial fibrillation S/P laminectomy in 2014 Plan continue Vancomycin and Merrem and will continue to monitor clinically (day 6 of 10-14) reviewed CT A/P - no acute pathology follow up further plans of Urology
--- NOTE | 2018-06-26 20:15 | CARD ---
APPROVED REPORT Date of service: 06/26/2018 EKG Measurement Heart [id number] <Conclusion> Normal sinus rhythm Poor R wave progression in Precordial leads Abnormal ECG
[2018-06-26] MEDS: Insulin Detemir 100 units/ml Vial (Levemir) SC SCH (21:27)
[2018-06-26] MEDS: Fluticasone Nasal 50 mcg/Spray NS SCH (23:25)
[2018-06-27] MEDS: Levalbuterol 1.25 MG/3 ML Inhal Soln UD IH SCH ×4 (01:54→19:39)
--- NOTE | 2018-06-27 04:42 | PN ---
DATE: 06/26/2018 SUBJECTIVE: The patient was seen and examined on the bedside 06/26/2018, and looking comfortable. No fever. No chills. No hematuria or hematochezia. No headache. No dizziness. No chest pain. No palpitations. PHYSICAL EXAMINATION: VITAL SIGNS: Blood pressure 150/80, pulse oximetry 64, temperature 97.9, oxygen saturation 98%. HEENT: Head normocephalic, atraumatic. Eyes PERRLA. Extraocular muscles intact. Conjunctivae clear. Nose patent. Mucous membrane moist. NECK: Supple. No carotid bruit. No JVD or thyromegaly. CHEST: Bilaterally symmetrical. HEART: S1, S2 positive. LUNGS: Clear to auscultation. ABDOMEN: Soft, nontender. No organomegaly. EXTREMITIES: Edema, bilateral lower extremities. NEUROLOGICAL: He is awake, alert, and moving all four extremities. No focal deficits. MEDICATIONS: Dextrose, hydralazine, Levemir, insulin, Xopenex, magnesium oxide, meropenem, Protonix, Neutra-Phos. LABORATORY DATA: White blood cell 9.5, hemoglobin 13.2, hematocrit 41.9, platelets 141. Sodium 137, potassium 4, glucose 155. ASSESSMENT AND PLAN: Mr. Marcus Valdovinos is a 57-year-old male with multiple medical problems, urinary tract infection, status post catheter replacement, sepsis from urinary tract infection, status post atrial fibrillation with rapid ventricular response. Resume Coumadin. Chronic obstructive pulmonary disease, paraplegia secondary to spinal tumor, decubitus ulcer, morbid obesity. The patient is bedridden. using nasal spray. Continue gastric and deep venous thrombosis prophylaxis. Repeat labs. We will follow up. Thalia Frazier MD MTDD
[2018-06-27] MEDS: Pantoprazole 40 mg EC Tab PO SCH ×2 (06:05→17:04)
[2018-06-27] MEDS: Meropenem IV 1 gm in NS 1 GM/50 ML BAG IVPB SCH ×3 (06:05→21:07)
[2018-06-27 07:17] LABS: BASO # 0.01 K/mm3 (0.0-2.0); BASO % 0.1 % (0.0-3.0); EOS # 0.3 (0.0-0.7); EOS % 3.1 % (1.5-5.0); GRAN # 8.08 (1.4-6.5); GRAN % 76.4 % (50.0-68.0); HEMOGLOBIN 13.1 g/dL (14.0-18.0); LYMPH # 1.2 (1.2-3.4); LYMPH % 11.4 % (22.0-35.0); MEAN CELL VOLUME 83.7 fl (80.0-105.0); MEAN CORPUSCULAR HEMOGLOBIN 26.3 pg (25.0-35.0); MEAN CORPUSCULAR HGB CONC 31.4 g/dl (31.0-37.0); MEAN PLATELET VOLUME 11.9 fl (7.0-11.0); RBC 4.98 10^6/uL (3.5-6.1); RED CELL DISTRIBUTION WIDTH 14.7 % (11.5-14.5); WHITE BLOOD COUNT 10.6 10^3/uL (4.5-11.0)
--- NOTE | 2018-06-27 07:21 | CP.PCM.PN ---
Subjective - Date & Time of Evaluation Date of Evaluation: 06/27/18 Time of Evaluation: 06:35 - Subjective Subjective: Awake, no distress Reason for consultation and follow up: Cardiac evaluation of SVT, history of atrial fibrillation, Seen and examined by me and Dr. Del Toro Objective - Vital Signs/Intake and Output Vital Signs (last 24 hours): Temp Pulse Resp BP Pulse Ox 98.4 F 71 18 142/86 98 06/26/18 23:02 06/26/18 23:02 06/26/18 23:02 06/26/18 23:02 06/26/18 23:02 Intake and Output: 06/27/18 06/27/18 06:59 18:59 Intake Total 1380 Output Total 1001 Balance 379 - Medications Medications: Current Medications Dextrose (Dextrose 50% Inj) 0 ml IV STAT PRN; Protocol PRN Reason: Hypoglycemia Protocol Fluticasone Propionate (Flonase) 1 actuation NS HS [facility] Last Admin: 06/26/18 23:25 Dose: 1 spray Hydralazine HCl (Apresoline) 10 mg PO QID PRN PRN Reason: for sbp>170 Last Admin: 06/26/18 12:19 Dose: 10 mg Dextrose (Dextrose 5% In Water 1000 Ml) 1,000 mls @ 0 mls/hr IV .Q0M PRN; Protocol PRN Reason: Hypoglycemia Protocol Meropenem (Merrem Iv 1 Gm Premix) 1 gm in 50 mls @ 100 mls/hr IVPB Q8 [facility]; Protocol Stop: 07/01/18 22:01 Last Admin: 06/27/18 06:05 Dose: 100 mls/hr Vancomycin HCl (Vancomycin 1gm) 1 gm in 250 mls @ 167 mls/hr IVPB Q12H [facility]; Pr otocol Last Admin: 06/26/18 21:27 Dose: 167 mls/hr Insulin Detemir (Levemir) 12 unit SC HS [facility] Last Admin: 06/26/18 21:27 Dose: 12 u Insulin Human Lispro (Humalog Med) 0 units SC [facility]; Protocol Last Admin: 06/26/18 21:27 Dose: Not Given Levalbuterol HCl (Xopenex) 1.25 mg IH [id number] Last Admin: 06/27/18 01:54 Dose: 1.25 mg Metoprolol Tartrate (Lopressor) 25 mg PO BID [facility] Last Admin: 06/26/18 17:22 Dose: 25 mg Nystatin (Mycostatin Cream) 0 ea TOP TID [facility] Last Admin: 06/26/18 17:24 Dose: 1 applic Ondansetron HCl (Zofran Inj) 4 mg IVP Q6H PRN PRN Reason: Nausea/Vomiting Last Admin: 06/23/18 20:21 Dose: 4 mg Pantoprazole Sodium (Protonix Ec Tab) 40 mg PO Q12H [facility] Last Admin: 06/27/18 06:05 Dose: 40 mg Sodium Chloride ([place] Nasal [place]) 0 ml NS Q4H [facility] Last Admin: 06/26/18 21:28 Dose: 2 spr Tiotropium [place] (Spiriva) 18 mcg IH DAILY [facility] Last Admin: 06/26/18 09:04 Dose: 18 mcg Verapamil HCl (Calan Sr Tab) 240 mg PO DAILY [facility] Last Admin: 06/26/18 09:04 Dose: 240 mg Warfarin Sodium (Coumadin) 6 mg PO 1800 [facility]; Protocol Last Admin: 06/24/18 17:48 Dose: 6 mg - Labs Labs: 06/26/18 06:15 06/26/18 06:15 PT 51.3 SECONDS (9.4-12.5) H 06/26/18 06:15 INR 4.33 H* 06/26/18 06:15 APTT 39.1 Seconds (25.1-36.5) H 06/26/18 06:15 - Constitutional Appears: Non-toxic, No Acute Distress - Head Exam Head Exam: NORMAL INSPECTION, NORMOCEPHALIC - Eye Exam Eye Exam: Normal appearance - ENT Exam ENT Exam: Mucous Membranes Moist - Cardiovascular Exam Cardiovascular Exam: +S1, +S2 - GI/Abdominal Exam GI & Abdominal Exam: Soft, Normal Bowel Sounds - Exam Additional comments: suprapubic catheter - Neurological Exam Neurological Exam: Alert, Awake, Oriented x3 - Psychiatric Exam Psychiatric exam: Normal Affect, Normal Mood - Skin Skin Exam: Dry, Normal Color, Warm Assessment and Plan - Assessment and Plan (Free Text) Assessment: A 57 year old morbidly obese male who was brought to the ER for suprapubic cystostomy. post op complicated by rapid rate atrial fibrillation/flutter, septic shock, elevated WBC. Adenosine was given but heart rate did not slow down and Verapamil,digoxin and Lopressor IV given. Hypotensive. Started on Cardizem drip and transferred to ICU for close monitoring. Heart rate eventually slowed down. Blood pressure stabilized.History of atrial fibrillation, diabetes, urinary retention s/p indwelling montague catheter, cerebral palsy, CHF, hypertension, asthma, COPD, CVA, inability to ambulate s/p accident and spinal tumor,bed bound, status post insertion of cystotomy tube and cystogram due to urinary retention.Now, Transferred to medical unit. stable. Coumadin restarted for atrial fibrillation. It was discontinued due to surgery. INR elevated so Coumadin on hold. Plan: Cardiac status stable Heart rate controlled Hold Coumadin today INR today 4.27,will repeat leve tomorrow Resume Coumadin once INR therapeutic On Hydralazine 10 mg PRN, Lopressor 25 mg BID Verapamil 240 mg daily, Coumadin 6 mg daily on hold continue IV antibiotics as ordered Cleared [facility] from cardiac standpoint Continue current treatment Continue current medications Will follow up Plan and treatment discussed with Dr. Del Toro
[2018-06-27 07:23] LABS: BLOOD UREA NITROGEN 6 mg/dL (7-21); CALCIUM 8.4 mg/dL (8.4-10.5); GFR NON-AFRICAN AMERICAN > 60
[2018-06-27 07:26] LABS: PROTHROMBIN TIME 48.3 SECONDS (9.4-12.5)
[2018-06-27 07:28] LABS: INR 4.27
[2018-06-27] MEDS: Insulin Lispro (humaLOG) MEDIUM Coverage SC SCH ×4 (10:26→21:23)
[2018-06-27] MEDS: Verapamil 240 mg ER Tab PO SCH (10:26)
[2018-06-27] MEDS: Vancomycin 1gm in NS 250ml 1 GM/250 ML BAG IVPB SCH ×2 (10:28→21:08)
--- NOTE | 2018-06-27 12:59 | CP.PCM.PN ---
<Donald Marie - Last Filed: 06/27/18 12:46> Subjective - Date & Time of Evaluation Date of Evaluation: 06/27/18 Time of Evaluation: 09:00 - Subjective Subjective: ID Progress Note Patient seen and examined. Patient with no complaints today. No fevers. Objective - Vital Signs/Intake and Output Vital Signs (last 24 hours): Temp Pulse Resp BP Pulse Ox 97.9 F 77 18 172/85 H 97 06/27/18 06:00 06/27/18 10:26 06/27/18 06:00 06/27/18 10:27 06/27/18 06:00 Intake and Output: 06/27/18 06/27/18 06:59 18:59 Intake Total 1380 Output Total 1001 Balance 379 - Medications Medications: Current Medications Dextrose (Dextrose 50% Inj) 0 ml IV STAT PRN; Protocol PRN Reason: Hypoglycemia Protocol Fluticasone Propionate (Flonase) 1 actuation NS HS [facility] Last Admin: 06/26/18 23:25 Dose: 1 spray Hydralazine HCl (Apresoline) 10 mg PO QID PRN PRN Reason: for sbp>170 Last Admin: 06/26/18 12:19 Dose: 10 mg Dextrose (Dextrose 5% In Water 1000 Ml) 1,000 mls @ 0 mls/hr IV .Q0M PRN; Protocol PRN Reason: Hypoglycemia Protocol Meropenem (Merrem Iv 1 Gm Premix) 1 gm in 50 mls @ 100 mls/hr IVPB Q8 [facility]; Protocol Stop: 07/01/18 22:01 Last Admin: 06/27/18 06:05 Dose: 100 mls/hr Vancomycin HCl (Vancomycin 1gm) 1 gm in 250 mls @ 167 mls/hr IVPB Q12H [facility]; Protocol Last Admin: 06/27/18 10:28 Dose: 167 mls/hr Insulin Detemir (Levemir) 12 unit SC HS [facility] Last Admin: 06/26/18 21:27 Dose: 12 u Insulin Human Lispro (Humalog Med) 0 units SC ACHS [facility]; Protocol Last Admin: 06/27/18 10:26 Dose: 1 units Levalbuterol HCl (Xopenex) 1.25 mg IH [id number] [facility] Last Admin: 06/27/18 08:25 Dose: 1.25 mg Metoprolol Tartrate (Lopressor) 25 mg PO BID [facility] Last Admin: 06/27/18 10:27 Dose: 25 mg Nystatin (Mycostatin Cream) 0 ea TOP TID [facility] Last Admin: 06/26/18 17:24 Dose: 1 applic Ondansetron HCl (Zofran Inj) 4 mg IVP Q6H PRN PRN Reason: Nausea/Vomiting Last Admin: 06/23/18 20:21 Dose: 4 mg Pantoprazole Sodium (Protonix Ec Tab) 40 mg PO Q12H [facility] Last Admin: 06/27/18 06:05 Dose: 40 mg Sodium Chloride ([place] Nasal [place]) 0 ml NS Q4H [facility] Last Admin: 06/27/18 10:28 Dose: 1 spr Tiotropium [place] (Spiriva) 18 mcg IH DAILY [facility] Last Admin: 06/26/18 09:04 Dose: 18 mcg Verapamil HCl (Calan Sr Tab) 240 mg PO DAILY [facility] Last Admin: 06/27/18 10:26 Dose: 240 mg Warfarin Sodium (Coumadin) 6 mg PO 1800 [facility]; Protocol Last Admin: 06/24/18 17:48 Dose: 6 mg - Labs Labs: 06/27/18 06:40 06/27/18 06:40 PT 48.3 SECONDS (9.4-12.5) H 06/27/18 06:40 INR 4.27 H* 06/27/18 06:40 APTT 39.1 Seconds (25.1-36.5) H 06/26/18 06:15 - Constitutional Appears: Non-toxic, No Acute Distress - Head Exam Head Exam: ATRAUMATIC, NORMAL INSPECTION, NORMOCEPHALIC - ENT Exam ENT Exam: Mucous Membranes Moist - Respiratory Exam Respiratory Exam: Decreased Breath Sounds, NORMAL BREATHING PATTERN - Cardiovascular Exam Cardiovascular Exam: RRR, +S1, +S2 - GI/Abdominal Exam GI & Abdominal Exam: Soft, Tenderness (Suprapubic), Normal Bowel Sounds - Neurological Exam Neurological Exam: Alert, Awake, Oriented x3 - Psychiatric Exam Psychiatric exam: Normal Affect, Normal Mood - Skin Skin Exam: Intact, Normal Color, Warm Assessment and Plan - Assessment and Plan (Free Text) Plan: severe sepsis from right sided HCAP and complicated UTI with E. faecalis and ESBL-producing E. coli in this patient who underwent a urologic procedure Hx of sepsis due to complicated UTI associated with indwelling montague catheter, with urine growing E. coli Hx of severe sepsis with acute renal failure due to probable complicated UTI associated with indwelling montague catheter, grew ESBL-producing E. coli Hx of HTN Hx of DM morbid obesity with BMI 53 chronic montague catheter use typically changed every month Hx of chronic atrial fibrillation S/P laminectomy in 2014 Plan Continue Vancomycin and Merrem day 12/09- Reviewed CT abdomen/pelvis Follow up with Urology recommendations Continue to monitor closely Cynthia, PGY-3 <Talib Cisneros S - Last Filed: 06/27/18 18:04> Objective - Vital Signs/Intake and Output Vital Signs (last 24 hours): Temp Pulse Resp BP Pulse Ox 97.9 F 81 18 175/95 H 97 06/27/18 06:00 06/27/18 16:59 06/27/18 06:00 06/27/18 16:59 06/27/18 06:00 Intake and Output: 06/27/18 06/27/18 06:59 18:59 Intake Total 1380 Output Total 1001 Balance 379 - Medications Medications: Current Medications Dextrose (Dextrose 50% Inj) 0 ml IV STAT PRN; Protocol PRN Reason: Hypoglycemia Protocol Fluticasone Propionate (Flonase) 1 actuation NS [facility] Last Admin: 06/26/18 23:25 Dose: 1 spray Hydralazine HCl (Apresoline) 10 mg PO QID PRN PRN Reason: for sbp>170 Last Admin: 06/27/18 15:48 Dose: 10 mg Dextrose (Dextrose 5% In Water 1000 Ml) 1,000 mls @ 0 mls/hr IV .Q0M PRN; Protocol PRN Reason: Hypoglycemia Protocol Meropenem (Merrem Iv 1 Gm Premix) 1 gm in 50 mls @ 100 mls/hr IVPB Q8 [facility]; Protocol Stop: 07/01/18 22:01 Last Admin: 06/27/18 13:32 Dose: 100 mls/hr Vancomycin HCl (Vancomycin 1gm) 1 gm in 250 mls @ 167 mls/hr IVPB Q12H [facility]; Protocol Last Admin: 06/27/18 10:28 Dose: 167 mls/hr Insulin Detemir (Levemir) 12 unit SC [facility] Last Admin: 06/26/18 21:27 Dose: 12 u Insulin Human Lispro (Humalog Med) 0 units SC ACHS [facility]; Protocol Last Admin: 06/27/18 16:58 Dose: 3 units Levalbuterol HCl (Xopenex) 1.25 mg IH [id number] [facility] Last Admin: 06/27/18 13:33 Dose: 1.25 mg Metoprolol Tartrate (Lopressor) 25 mg PO BID [facility] Last Admin: 06/27/18 16:59 Dose: 25 mg Nystatin (Mycostatin Cream) 0 ea TOP TID [facility] Last Admin: 06/27/18 13:35 Dose: 1 applic Ondansetron HCl (Zofran Inj) 4 mg IVP Q6H PRN PRN Reason: Nausea/Vomiting Last Admin: 06/23/18 20:21 Dose: 4 mg Pantoprazole Sodium (Protonix Ec Tab) 40 mg PO Q12H [facility] Last Admin: 06/27/18 17:04 Dose: 40 mg Sodium Chloride ([place] Nasal [place]) 0 ml NS Q4H [facility] Last Admin: 06/27/18 15:54 Dose: Not Given Tiotropium [place] (Spiriva) 18 mcg IH DAILY [facility] Last Admin: 06/27/18 13:32 Dose: 18 mcg Verapamil HCl (Calan Sr Tab) 240 mg PO DAILY [facility] Last Admin: 06/27/18 10:26 Dose: 240 mg Warfarin Sodium (Coumadin) 6 mg PO 1800 [facility]; Protocol Last Admin: 06/24/18 17:48 Dose: 6 mg - Labs Labs: 06/27/18 06:40 06/27/18 06:40 PT 48.3 SECONDS (9.4-12.5) H 06/27/18 06:40 INR 4.27 H* 06/27/18 06:40 APTT 39.1 Seconds (25.1-36.5) H 06/26/18 06:15 Assessment and Plan - Assessment and Plan (Free Text) Plan: Infectious diseases Attending Physician Attestation Patient seen and examined, discussed with biomedical engineer. I have reviewed the patient's history of present illness, past medical, social, personal and family histories, pertinent physical exam findings, course so far in this hospital admission, pertinent laboratory and imaging results. I agree with the above fin dings, assessment and plan. In addition, continue Vancomycin and Merrem for patient with ESBL E. coli and E. faecalis UTI with severe sepsis. Complete 10-14 days of therapy.
[2018-06-27] MEDS: Tiotropium 18 mcg Cap For Inhalation IH SCH (13:32)
[2018-06-27] MEDS: Nystatin 100,000 Units/gm Cream(15 gm) TOP SCH (13:35)
--- NOTE | 2018-06-27 14:46 | PN ---
DATE: 06/27/2018 PULMONARY PROGRESS NOTE REFERRING PHYSICIAN: Dr. Ly. SUBJECTIVE: The patient is sitting up in bed. No acute distress. No overnight events reported. The patient reports he did not use BiPAP machine last night. No headache, rhinitis, cough, shortness of breath, chest pain, abdominal pain, nausea, vomiting, diarrhea, leg pain, leg swelling reported. OBJECTIVE: GENERAL: No acute distress. VITAL SIGNS: Blood pressure 166/89, pulse 76, temperature 97.9, oxygen saturation 97% on room air. HEENT: Moist mucous membranes. Mallampati score of 4. Crowded airway. NECK: Supple. No JVD. LUNGS: Fair airflow bilaterally. CARDIOVASCULAR: S1, S2 audible. ABDOMEN: Soft, nontender. No distension. Indwelling catheter. EXTREMITIES: Trace bilateral lower extremity edema. NEUROLOGIC: Awake, alert, and verbal. Follows commands. MEDICATIONS: Reviewed. Flonase 1 spray nasally at bedtime, Apresoline 10 mg four times a day p.r.n. for systolic BP greater than 170, Levemir 12 units subcu at bedtime, Humalog sliding scale a.c. and at bedtime, Xopenex 1.25 mg inhalation every 6 hours, meropenem 1 g every 8 hours, metoprolol tartrate 25 mg twice a day, nystatin topically three times a day, Zofran 4 mg every 6 hours p.r.n., Protonix 40 mg every 12 hours, [place] nasal spray every 4 hours, Spiriva 18 mcg daily, vancomycin 1 g every 12 hours, verapamil 240 mg daily, Coumadin 6 mg daily. LABORATORY DATA: Reviewed. WBC 10.6, RBC 4.9, hemoglobin 13.1, hematocrit 41.7, platelets 155. PT 48.3, INR 4.27. Sodium 137, potassium 3.7, chloride 96, carbon dioxide 36, anion gap 9, BUN 6, creatinine 0.7. GFR greater than 60. POC glucose 242, random glucose 187. Calcium 8.4. Total creatinine kinase 23. Troponin 0.01. Electrocardiogram shows normal sinus rhythm. 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 The patient is bedridden. Continue gastric prophylaxis. Coumadin on hold. Repeat PT/INR in the morning due to elevated INR. Continued to encourage bilateral positive airway pressure use at bedtime, sleep apnea precaution, head of bed elevated at 45 degrees. Continue inhaled bronchodilators and antibiotic therapy per Infectious Disease. Follow up with Urology. The patient seems to be draining more urine from [place] catheter than suprapubic catheter. This patient was seen and examined with Dr. Dunbar. Discussed assessment and plan as described above. Thank you for this consult. We will follow with you. Diego Barnes APN Yosef Dunbar MD
--- NOTE | 2018-06-27 15:36 | PN ---
DATE: 06/27/2018 REASON FOR CONSULTATION AND FOLLOWUP: SVT, post suprapubic cystostomy, history of AFib, now converted to normal sinus, is stable. This note is in addition to dictated by nurse practitioner, Yumiko Degroot. SUBJECTIVE: The patient is stable, denies any chest pain, shortness of breath, any palpitation. EKG shows normal sinus rate of 86. IMPRESSION: In summary, 57-year-old morbidly obese male, bed bound, hypospadias, recurrent UTI, status post suprapubic cystostomy, history of atrial fibrillation paroxysmal, went into sepsis, septic shock, supraventricular tachycardia, now converted to normal sinus, now patient is stable, on Cardizem CD. RECOMMENDATION: Continue verapamil 240 mg daily, continue Coumadin. INR today is 4.27. Continue to hold Coumadin till the INR gets to 2.5. Repeat the lab in the morning for PT/INR to adjust the dose of Coumadin. Once it goes below 2.5, we will start Coumadin. Thank you Dr. Frazier for providing us the opportunity in taking care of the patient, Bonifacio. Yosef Del Toro MD
[2018-06-27] MEDS: Fluticasone Nasal 50 mcg/Spray NS SCH (21:08)
[2018-06-27] MEDS: Insulin Detemir 100 units/ml Vial (Levemir) SC SCH (21:24)
--- NOTE | 2018-06-27 22:15 | PN ---
DATE: 06/27/2018 SUBJECTIVE: The patient was seen and examined at the bedside 06/27/2018, looking comfortable. No fever. No chills. No hematuria. No hematochezia. No headache. No dizziness. No chest pain. No palpitations. PHYSICAL EXAMINATION: VITAL SIGNS: Blood pressure 150/80, pulse oximetry 76, temperature 97.6, oxygen saturation 97%. HEENT: Head is normocephalic, atraumatic. Eyes; PERRLA. Extraocular muscles intact. Conjunctivae clear. Nose patent. Mucous membranes moist. NECK: Supple. No carotid bruits. No JVD or thyromegaly. CHEST: Bilateral symmetrical. HEART: S1, S2 positive. LUNGS: Clear to auscultation. ABDOMEN: Soft. Bowel sounds present. No organomegaly. EXTREMITIES: No edema. No cyanosis. NEUROLOGIC: The patient is awake, alert, follow simple commands. MEDICATIONS: Flonase, hydralazine, Levemir, insulin, Xopenex, meropenem, nystatin, Zofran, Protonix. LABORATORY DATA: White blood cell 10.6, hemoglobin 4.9, hematocrit 31.1, platelets 155. Sodium 137 and potassium 3.7. ASSESSMENT AND PLAN: Mr. Bonifacio Velazquez is a 57-year-old male with multiple medical problems status post suprapubic catheter placement, sepsis, urinary tract infection, status post atrial fibrillation with rapid ventricular response, chronic obstructive lung disease, sleep apnea syndrome, history of paraplegia. Coumadin is on hold. Continue present treatment. Discussion done with Dr. Dunbar. Sleep apnea precautions. We will followup. Thalia Frazier MD
[2018-06-28] MEDS: Levalbuterol 1.25 MG/3 ML Inhal Soln UD IH SCH ×4 (01:51→20:10)
[2018-06-28] MEDS: Meropenem IV 1 gm in NS 1 GM/50 ML BAG IVPB SCH ×3 (05:17→21:12)
[2018-06-28] MEDS: Pantoprazole 40 mg EC Tab PO SCH ×2 (05:17→17:34)
--- NOTE | 2018-06-28 07:27 | CP.PCM.PN ---
Subjective - Date & Time of Evaluation Date of Evaluation: 06/28/18 Time of Evaluation: 06:55 - Subjective Subjective: Awake, no distress, feels okay Reason for consultation and follow up: Cardiac evaluation of SVT, history of atrial fibrillation, Seen and examined by me and Dr. Del Toro Objective - Vital Signs/Intake and Output Vital Signs (last 24 hours): Temp Pulse Resp BP Pulse Ox 98.4 F 74 18 167/89 H 97 06/27/18 23:19 06/28/18 05:23 06/27/18 23:19 06/28/18 05:23 06/27/18 23:19 Intake and Output: 06/28/18 06/28/18 06:59 18:59 Intake Total 240 Output Total 800 Balance -560 - Medications Medications: Current Medications Dextrose (Dextrose 50% Inj) 0 ml IV STAT PRN; Protocol PRN Reason: Hypoglycemia Protocol Fluticasone Propionate (Flonase) 1 actuation NS HS [facility] Last Admin: 06/27/18 21:08 Dose: 1 spray Hydralazine HCl (Apresoline) 10 mg PO QID PRN PRN Reason: for sbp>170 Last Admin: 06/28/18 05:23 Dose: 10 mg Dextrose (Dextrose 5% In Water 1000 Ml) 1,000 mls @ 0 mls/hr IV .Q0M PRN; Protocol PRN Reason: Hypoglycemia Protocol Meropenem (Merrem Iv 1 Gm Premix) 1 gm in 50 mls @ 100 mls/hr IVPB Q8 [facility]; Protocol Stop: 07/01/18 22:01 Last Admin: 06/28/18 05:17 Dose: 100 mls/hr Vancomycin HCl (Vancomycin 1gm) 1 gm in 250 mls @ 167 mls/hr IVPB Q12H [facility]; Protocol Last Admin: 06/27/18 21:08 Dose: 167 mls/hr Insulin Detemir (Levemir) 12 unit SC HS [facility] Last Admin: 06/27/18 21:24 Dose: 12 u Insulin Human Lispro (Humalog Med) 0 units SC ACHS [facility]; Protocol Last Admin: 06/27/18 21:23 Dose: 2 units Levalbuterol HCl (Xopenex) 1.25 mg IH [id number] [facility] Last Admin: 06/28/18 01:51 Dose: 1.25 mg Metoprolol Tartrate (Lopressor) 25 mg PO BID [facility] Last Admin: 06/27/18 16:59 Dose: 25 mg Nystatin (Mycostatin Cream) 0 ea TOP TID [facility] Last Admin: 06/27/18 13:35 Dose: 1 applic Ondansetron HCl (Zofran Inj) 4 mg IVP Q6H PRN PRN Reason: Nausea/Vomiting Last Admin: 06/23/18 20:21 Dose: 4 mg Pantoprazole Sodium (Protonix Ec Tab) 40 mg PO Q12H [facility] Last Admin: 06/28/18 05:17 Dose: 40 mg Sodium Chloride ([place] Nasal [place]) 0 ml NS Q4H [facility] Last Admin: 06/27/18 21:08 Dose: 1 spr Tiotropium [place] (Spiriva) 18 mcg IH DAILY [facility] Last Admin: 06/27/18 13:32 Dose: 18 mcg Verapamil HCl (Calan Sr Tab) 240 mg PO DAILY [facility] Last Admin: 06/27/18 10:26 Dose: 240 mg Warfarin Sodium (Coumadin) 6 mg PO 1800 [facility]; Protocol Last Admin: 06/24/18 17:48 Dose: 6 mg - Labs Labs: 06/27/18 06:40 06/27/18 06:40 PT 48.3 SECONDS (9.4-12.5) H 06/27/18 06:40 INR 4.27 H* 06/27/18 06:40 APTT 39.1 Seconds (25.1-36.5) H 06/26/18 06:15 - Constitutional Appears: Non-toxic, No Acute Distress - Head Exam Head Exam: NORMAL INSPECTION, NORMOCEPHALIC - Eye Exam Eye Exam: Normal appearance Pupil Exam: NORMAL ACCOMODATION - ENT Exam ENT Exam: Mucous Membranes Moist, Normal Exam - Respiratory Exam Respiratory Exam: Decreased Breath Sounds, NORMAL BREATHING PATTERN - Cardiovascular Exam Cardiovascular Exam: +S1, +S2 - GI/Abdominal Exam GI & Abdominal Exam: Soft, Normal Bowel Sounds - Exam Additional comments: suprapubic catheter - Neurological Exam Neurological Exam: Alert, Awake, Oriented x3 - Psychiatric Exam Psychiatric exam: Normal Affect, Normal Mood - Skin Skin Exam: Dry, Normal Color, Warm Assessment and Plan - Assessment and Plan (Free Text) Assessment: A 57 year old morbidly obese male who was brought to the ER for suprapubic cystostomy. post op complicated by rapid rate atrial fibrillation/flutter, septic shock, elevated WBC. Adenosine was given but heart rate did not slow down and Verapamil,digoxin and Lopressor IV given. Hypotensive. Started on Cardizem drip and transferred to ICU for close monitoring. Heart rate eventually slowed down. Blood pressure stabilized.History of atrial fibrillation, diabetes, urinary retention s/p indwelling montague catheter, cerebral palsy, CHF, hypertension, asthma, COPD, CVA, inability to ambulate s/p accident and spinal tumor,bed bound, status post insertion of cystotomy tube and cystogram due to urinary retention.Now, Transferred to medical unit. stable. Coumadin restarted for atrial fibrillation. It was discontinued due to surgery. INR elevated so Coumadin on hold. Plan: Contact isolation fro E. coli in urine Cardiac status stable Heart rate controlled Coumadin on hold due to elevated INR INR today pending On Hydralazine 10 mg PRN, Lopressor 25 mg BID Verapamil 240 mg daily, Coumadin 6 mg daily on hold Continue IV antibiotics as ordered by ID Continue current treatment Continue current medications Will follow up Plan and treatment discussed with Dr. Del Toro
[2018-06-28 07:34] LABS: INR 2.36; PROTHROMBIN TIME 26.7 SECONDS (9.4-12.5)
--- NOTE | 2018-06-28 08:23 | CP.PCM.PN ---
<Donald Marie - Last Filed: 06/28/18 12:48> Subjective - Date & Time of Evaluation Date of Evaluation: 06/28/18 Time of Evaluation: 07:00 - Subjective Subjective: ID Progress Note Patient seen and examined. Patient with mild abdominal pain. No fevers or acute events overnight. Objective - Vital Signs/Intake and Output Vital Signs (last 24 hours): Temp Pulse Resp BP Pulse Ox 98.4 F 74 18 167/89 H 97 06/27/18 23:19 06/28/18 05:23 06/27/18 23:19 06/28/18 05:23 06/27/18 23:19 Intake and Output: 06/28/18 06/28/18 06:59 18:59 Intake Total 240 Output Total 800 Balance -560 - Medications Medications: Current Medications Dextrose (Dextrose 50% Inj) 0 ml IV STAT PRN; Protocol PRN Reason: Hypoglycemia Protocol Fluticasone Propionate (Flonase) 1 actuation NS HS [facility] Last Admin: 06/27/18 21:08 Dose: 1 spray Hydralazine HCl (Apresoline) 10 mg PO QID PRN PRN Reason: for sbp>170 Last Admin: 06/28/18 05:23 Dose: 10 mg Dextrose (Dextrose 5% In Water 1000 Ml) 1,000 mls @ 0 mls/hr IV .Q0M PRN; Protocol PRN Reason: Hypoglycemia Protocol Meropenem (Merrem Iv 1 Gm Premix) 1 gm in 50 mls @ 100 mls/hr IVPB Q8 [facility]; Protocol Stop: 07/01/18 22:01 Last Admin: 06/28/18 05:17 Dose: 100 mls/hr Vancomycin HCl (Vancomycin 1gm) 1 gm in 250 mls @ 167 mls/hr IVPB Q12H [facility]; Protocol Last Admin: 06/27/18 21:08 Dose: 167 mls/hr Insulin Detemir (Levemir) 12 unit SC HS [facility] Last Admin: 06/27/18 21:24 Dose: 12 u Insulin Human Lispro (Humalog Med) 0 units SC [facility]; Protocol Last Admin: 06/27/18 21:23 Dose: 2 units Levalbuterol HCl (Xopenex) 1.25 mg IH [id number] [facility] Last Admin: 06/28/18 07:48 Dose: 1.25 mg Metoprolol Tartrate (Lopressor) 25 mg PO BID [facility] Last Admin: 06/27/18 16:59 Dose: 25 mg Nystatin (Mycostatin Cream) 0 ea TOP TID [facility] Last Admin: 06/27/18 13:35 Dose: 1 applic Ondansetron HCl (Zofran Inj) 4 mg IVP Q6H PRN PRN Reason: Nausea/Vomiting Last Admin: 06/23/18 20:21 Dose: 4 mg Pantoprazole Sodium (Protonix Ec Tab) 40 mg PO Q12H [facility] Last Admin: 06/28/18 05:17 Dose: 40 mg Sodium Chloride ([place] Nasal [place]) 0 ml NS Q4H [facility] Last Admin: 06/27/18 21:08 Dose: 1 spr Tiotropium [place] (Spiriva) 18 mcg IH DAILY [facility] Last Admin: 06/27/18 13:32 Dose: 18 mcg Verapamil HCl (Calan Sr Tab) 240 mg PO DAILY [facility] Last Admin: 06/27/18 10:26 Dose: 240 mg Warfarin Sodium (Coumadin) 6 mg PO 1800 [facility]; Protocol Last Admin: 06/24/18 17:48 Dose: 6 mg - Labs Labs: 06/27/18 06:40 06/27/18 06:40 PT 26.7 SECONDS (9.4-12.5) H 06/28/18 07:20 INR 2.36 06/28/18 07:20 APTT 39.1 Seconds (25.1-36.5) H 06/26/18 06:15 - Constitutional Appears: Non-toxic, Toxic - Head Exam Head Exam: ATRAUMATIC, NORMAL INSPECTION, NORMOCEPHALIC - ENT Exam ENT Exam: Mucous Membranes Moist - Respiratory Exam Respiratory Exam: Decreased Breath Sounds, NORMAL BREATHING PATTERN. absent: Rales, Rhonchi, Wheezes - Cardiovascular Exam Cardiovascular Exam: RRR, +S1, +S2 - GI/Abdominal Exam GI & Abdominal Exam: Soft, Normal Bowel Sounds. absent: Tenderness - Extremities Exam Extremities Exam: Pedal Edema (Trace b/l) - Neurological Exam Neurological Exam: Alert, Awake, Oriented x3 - Psychiatric Exam Psychiatric exam: Normal Affect, Normal Mood - Skin Skin Exam: Intact, Normal Color, Warm Assessment and Plan - Assessment and Plan (Free Text) Plan: Severe sepsis from right sided HCAP and complicated UTI with E. faecalis and ESBL-producing E. coli in this patient who underwent a urologic procedure Hx of sepsis due to complicated UTI associated with indwelling montague catheter, with urine growing E. coli Hx of severe sepsis with acute renal failure due to probable complicated UTI associated with indwelling montague catheter, grew ESBL-producing E. coli Hx of HTN Hx of DM morbid obesity with BMI 53 chronic montague catheter use typically changed every month Hx of chronic atrial fibrillation S/P laminectomy in 2014 Plan Continue Vancomycin and Merrem day 8/10 days Urine culture demonstrates ESBL-producing E.coli and E. faecalis Prior CT abdomen/pelvis reviewed Follow up with Urology recommendations Continue to monitor clinically Cynthia, PGY-3 <Talib Cisneros - Last Filed: 06/28/18 14:36> Objective - Vital Signs/Intake and Output Vital Signs (last 24 hours): Temp Pulse Resp BP Pulse Ox 97.7 F 75 15 167/89 H 94 L 06/28/18 06:00 06/28/18 10:21 06/28/18 06:00 06/28/18 10:21 06/28/18 06:00 Intake and Output: 06/28/18 06/28/18 06:59 18:59 Intake Total 240 Output Total 800 Balance -560 - Medications Medications: Current Medications Dextrose (Dextrose 50% Inj) 0 ml IV STAT PRN; Protocol PRN Reason: Hypoglycemia Protocol Fluticasone Propionate (Flonase) 1 actuation NS HS [facility] Last Admin: 06/27/18 21:08 Dose: 1 spray Hydralazine HCl (Apresoline) 10 mg PO QID PRN PRN Reason: for sbp>170 Last Admin: 06/28/18 05:23 Dose: 10 mg Dextrose (Dextrose 5% In Water 1000 Ml) 1,000 mls @ 0 mls/hr IV .Q0M PRN; Protocol PRN Reason: Hypoglycemia Protocol Meropenem (Merrem Iv 1 Gm Premix) 1 gm in 50 mls @ 100 mls/hr IVPB Q8 [facility]; Protocol Stop: 07/01/18 22:01 Last Admin: 06/28/18 13:30 Dose: 100 mls/hr Vancomycin HCl (Vancomycin 1gm) 1 gm in 250 mls @ 167 mls/hr IVPB Q12H [facility]; Protocol Last Admin: 06/28/18 10:24 Dose: 167 mls/hr Insulin Detemir (Levemir) 12 unit SC HS [facility] Last Admin: 06/27/18 21:24 Dose: 12 u Insulin Human Lispro (Humalog Med) 0 units SC ACHS [facility]; Protocol Last Admin: 06/28/18 13:29 Dose: 3 units Levalbuterol HCl (Xopenex) 1.25 mg IH [id number] [facility] Last Admin: 06/28/18 13:18 Dose: 1.25 mg Metoprolol Tartrate (Lopressor) 25 mg PO BID [facility] Last Admin: 06/28/18 10:21 Dose: 25 mg Nystatin (Mycostatin Cream) 0 ea TOP TID [facility] Last Admin: 06/28/18 13:31 Dose: Not Given Ondansetron HCl (Zofran Inj) 4 mg IVP Q6H PRN PRN Reason: Nausea/Vomiting Last Admin: 06/23/18 20:21 Dose: 4 mg Pantoprazole Sodium (Protonix Ec Tab) 40 mg PO Q12H [facility] Last Admin: 06/28/18 05:17 Dose: 40 mg Sodium Chloride ([place] Nasal [place]) 0 ml NS Q4H [facility] Last Admin: 06/28/18 13:30 Dose: 1 spr Tiotropium [place] (Spiriva) 18 mcg IH DAILY [facility] Last Admin: 06/28/18 10:22 Dose: 18 mcg Verapamil HCl (Calan Sr Tab) 240 mg PO DAILY [facility] Last Admin: 06/28/18 10:22 Dose: 240 mg Warfarin Sodium (Coumadin) 4 mg PO 1800 [facility]; Protocol - Labs Labs: 06/27/18 06:40 06/27/18 06:40 PT 26.7 SECONDS (9.4-12.5) H 06/28/18 07:20 INR 2.36 06/28/18 07:20 APTT 39.1 Seconds (25.1-36.5) H 06/26/18 06:15 Assessment and Plan - Assessment and Plan (Free Text) Plan: Infectious diseases Attending Physician Attestation Patient seen and examined, discussed with medical office worker. I have reviewed the patient's history of present illness, past medical, social, personal and family histories, pertinent physical exam findings, course so far in this hospital admission, pertinent laboratory and imaging results. I agree with the above findings, assessment and plan. In addition, continue IV Vancomycin and Merrem for patient with ESBL E. coli and E. faecalis complicated UTI with sepsis. Complete up to 10 days of antibiotics.
[2018-06-28] MEDS: Verapamil 240 mg ER Tab PO SCH (10:22)
[2018-06-28] MEDS: Insulin Lispro (humaLOG) MEDIUM Coverage SC SCH ×3 (10:22→16:36)
[2018-06-28] MEDS: Tiotropium 18 mcg Cap For Inhalation IH SCH (10:22)
[2018-06-28] MEDS: Vancomycin 1gm in NS 250ml 1 GM/250 ML BAG IVPB SCH ×2 (10:24→20:52)
[2018-06-28] MEDS: Nystatin 100,000 Units/gm Cream(15 gm) TOP SCH ×2 (10:26→13:31)
--- NOTE | 2018-06-28 13:10 | PN ---
DATE: 06/28/2018 PULMONARY PROGRESS NOTE REFERRING PHYSICIAN: Ankit Ly MD SUBJECTIVE: The patient is sitting up in bed. No acute distress. No overnight events reports. Reports wearing BiPAP machine last night. No headache, rhinitis, cough, shortness of breath, chest pain, abdominal pain, nausea, vomiting, diarrhea, leg pain, leg swelling reported. PHYSICAL EXAMINATION GENERAL: No acute distress. VITAL SIGNS: Blood pressure 167/89, pulse 75, temperature 97.7 and oxygen saturation 94%. HEENT: Moist mucous membrane. Mallampati score 4. Crowded airway. NECK: Supple. No JVD. LUNGS: Fair airflow bilaterally. CARDIOVASCULAR: S1 and S2 audible. ABDOMEN: Soft, nontender. No distention. No organomegaly. EXTREMITIES: Trace bilateral lower extremity edema. NEUROLOGIC: Awake, alert and verbal. Follows commands. MEDICATIONS: Reviewed. Flonase one spray nasally at bedtime, hydralazine 10 mg four times a day p.r.n. systolic BP greater than 170, Levemir 12 unit subcutaneously at bedtime, Humalog sliding scale a.c. and at bedtime, Xopenex 1.25 mg inhalation every 6 hours, meropenem 1 g every 8 hours, metoprolol titrate 25 mg twice a day, nystatin topically three times a day, Zofran 4 mg every 6 hours p.r.n., Protonix 40 mg every 12 hours, [place] nasal spray every 4 hours, Spiriva 80 mcg daily, vancomycin 1 g every 12 hours, verapamil 240 mg daily and Coumadin 6 mg daily. LABORATORY DATA: Reviewed. PT 26.7 and INR 2.36. POC glucose 243. IMPRESSION AND PLAN: Status post suprapubic catheter placement, sepsis with urinary tract infection, status post atrial fibrillation, rapid ventricular response, chronic lung disease, obstructive sleep apnea syndrome, paraplegia secondary spinal tumor, decubitus ulcers, moderate obesity, diabetes, chronic lung disease. The patient is bedridden, continue gastric prophylaxis, continue bilevel positive airway pressure use at bedtime, sleep apnea precautions, head of bed elevated at 45 degrees, continue inhaled bronchodilators and antibiotic therapy for Infectious Disease. Follow up with Urology, as suprapubic catheter is not draining as much as Ceron catheter. This patient was seen and examined with Dr. Dunbar. Discussed assessment and plan as described above. Thank you for this consult and we will follow with you. Diego Barnes APN Yosef Dunbar MD [place]
[2018-06-28] MEDS: Insulin Detemir 100 units/ml Vial (Levemir) SC SCH (21:12)
[2018-06-28] MEDS: Fluticasone Nasal 50 mcg/Spray NS SCH (21:30)
[2018-06-29] MEDS: Levalbuterol 1.25 MG/3 ML Inhal Soln UD IH SCH ×4 (02:31→21:25)
--- NOTE | 2018-06-29 04:02 | PN ---
DATE: 06/28/2018 SUBJECTIVE: The patient is a 57-year-old male. The patient was seen and examined at the bedside on 06/28/2018, looking comfortable. No change in the status. No headache. No dizziness. No chest pain. No palpitations. No fever. No chills. PHYSICAL EXAMINATION: VITAL SIGNS: Blood pressure 160/80, pulse oximetry 75, temperature 97.9, oxygen saturation 94%. HEENT: Head is normocephalic, atraumatic. Eyes PERRLA. Extraocular muscles intact. Conjunctivae clear. Nose patent. Mucous membranes are moist. NECK: Supple. No carotid bruits. No JVD or thyromegaly. CHEST: Bilaterally symmetrical. HEART: S1, S2 positive. LUNGS: Clear to auscultation. ABDOMEN: Soft. Bowel sounds present. No organomegaly. Has suprapubic catheter placed. EXTREMITIES: No edema. No cyanosis. NEUROLOGIC: The patient is awake, alert. Follow simple commands. MEDICATIONS: Flonase, hydralazine, Levemir, insulin, Xopenex, meropenem, metoprolol, Zofran, Protonix, and Spiriva. LABORATORY DATA: PT 26.7. INR 2.36. Glucose 243. ASSESSMENT AND PLAN: Mr. Marcus Valdovinos is a 57-year-old male with multiple problems, status post suprapubic catheter placement even is nonworking, now the patient has both indwelling Ceron catheter and suprapubic catheter. Dr. Ly is on the case. 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 Plan is to continue present treatment. Discussion done with nursing staff. Gastrointestinal and deep venous thrombosis prophylaxis. We will f/u Dr. Ly's plan. We will follow up. Thalia Frazier MD MTDFátima
[2018-06-29] MEDS: Meropenem IV 1 gm in NS 1 GM/50 ML BAG IVPB SCH ×3 (06:28→22:45)
[2018-06-29] MEDS: Pantoprazole 40 mg EC Tab PO SCH ×2 (06:28→17:52)
--- NOTE | 2018-06-29 06:30 | CP.PCM.PN ---
Subjective - Date & Time of Evaluation Date of Evaluation: 06/29/18 Time of Evaluation: 06:25 - Subjective Subjective: Lying in bed,awake, no distress Reason for consultation and follow up: Cardiac evaluation of SVT, history of atrial fibrillation, Seen and examined by me and Dr. Del Toro Objective - Vital Signs/Intake and Output Vital Signs (last 24 hours): Temp Pulse Resp BP Pulse Ox 98 F 74 18 122/60 96 06/28/18 23:25 06/28/18 23:25 06/28/18 23:25 06/28/18 23:25 06/28/18 23:25 Intake and Output: 06/28/18 06/29/18 18:59 06:59 Intake Total 360 Output Total 700 Balance -340 - Medications Medications: Current Medications Dextrose (Dextrose 50% Inj) 0 ml IV STAT PRN; Protocol PRN Reason: Hypoglycemia Protocol Fluticasone Propionate (Flonase) 1 actuation NS HS [facility] Last Admin: 06/28/18 21:30 Dose: 1 spray Hydralazine HCl (Apresoline) 10 mg PO QID PRN PRN Reason: for sbp>170 Last Admin: 06/28/18 05:23 Dose: 10 mg Dextrose (Dextrose 5% In Water 1000 Ml) 1,000 mls @ 0 mls/hr IV .Q0M PRN; Protocol PRN Reason: Hypoglycemia Protocol Meropenem (Merrem Iv 1 Gm Premix) 1 gm in 50 mls @ 100 mls/hr IVPB Q8 [facility]; Protocol Stop: 07/01/18 22:01 Last Admin: 06/28/18 21:12 Dose: 100 mls/hr Vancomycin HCl (Vancomycin 1gm) 1 gm in 250 mls @ 167 mls/hr IVPB Q12H [facility]; Protocol Last Admin: 06/28/18 20:52 Dose: 167 mls/hr Insulin Detemir (Levemir) 12 unit SC HS [facility] Last Admin: 06/28/18 21:12 Dose: 12 u Insulin Human Lispro (Humalog Med) 0 units SC ACHS [facility]; Protocol Last Admin: 06/28/18 16:36 Dose: 3 units Levalbuterol HCl (Xopenex) 1.25 mg IH [id number] [facility] Last Admin: 06/29/18 02:31 Dose: 1.25 mg Metoprolol Tartrate (Lopressor) 25 mg PO BID [facility] Last Admin: 06/28/18 17:33 Dose: 25 mg Nystatin (Mycostatin Cream) 0 ea TOP TID [facility] Last Admin: 06/28/18 13:31 Dose: Not Given Ondansetron HCl (Zofran Inj) 4 mg IVP Q6H PRN PRN Reason: Nausea/Vomiting Last Admin: 06/23/18 20:21 Dose: 4 mg Pantoprazole Sodium (Protonix Ec Tab) 40 mg PO Q12H [facility] Last Admin: 06/28/18 17:34 Dose: 40 mg Sodium Chloride ([place] Nasal [place]) 0 ml NS Q4H [facility] Last Admin: 06/28/18 21:30 Dose: 1 spr Tiotropium [place] (Spiriva) 18 mcg IH DAILY [facility] Last Admin: 06/28/18 10:22 Dose: 18 mcg Verapamil HCl ([place] Sr Tab) 240 mg PO DAILY [facility] Last Admin: 06/28/18 10:22 Dose: 240 mg Warfarin Sodium (Coumadin) 4 mg PO 1800 [facility]; Protocol Last Admin: 06/28/18 17:33 Dose: 4 mg - Labs Labs: 06/27/18 06:40 06/27/18 06:40 PT 26.7 SECONDS (9.4-12.5) H 06/28/18 07:20 INR 2.36 06/28/18 07:20 APTT 39.1 Seconds (25.1-36.5) H 06/26/18 06:15 - Constitutional Appears: Non-toxic, No Acute Distress - Head Exam Head Exam: NORMAL INSPECTION, NORMOCEPHALIC - Eye Exam Eye Exam: Normal appearance Pupil Exam: NORMAL ACCOMODATION - ENT Exam ENT Exam: Mucous Membranes Moist, Normal Exam - Respiratory Exam Respiratory Exam: Decreased Breath Sounds, NORMAL BREATHING PATTERN - Cardiovascular Exam Cardiovascular Exam: +S1, +S2 - GI/Abdominal Exam GI & Abdominal Exam: Soft, Normal Bowel Sounds - Exam Additional comments: suprapubic catheter montague catheter - Neurological Exam Neurological Exam: Alert, Awake, Oriented x3 - Psychiatric Exam Psychiatric exam: Normal Affect, Normal Mood - Skin Skin Exam: Dry, Normal Color, Warm Assessment and Plan - Assessment and Plan (Free Text) Assessment: A 57 year old morbidly obese male who was brought to the ER for suprapubic cystostomy. post op complicated by rapid rate atrial fibrillation/flutter, septic shock, elevated WBC. Adenosine was given but heart rate did not slow down and Verapamil,digoxin and Lopressor IV given. Hypotensive. Started on Cardizem drip and transferred to ICU for close monitoring. Heart rate eventually slowed down. Blood pressure stabilized.History of atrial fibrillation, diabetes, urinary retention s/p indwelling montague catheter, cerebral palsy, CHF, hypertension, asthma, COPD, CVA, inability to ambulate s/p accident and spinal tumor,bed bound, status post insertion of cystostomy tube and cystogram due to urinary retention. Transferred to medical unit. Stable. Coumadin restarted for atrial fibrillation. INR elevated so Coumadin on hold. INR yesterday 2.36 therapeutic and restarted at 4mg daily. Daily INR. Plan: Cardiac status stable Heart rate controlled Blood pressure controlled Contact isolation for E. coli in urine INR therapeutic, on Coumadin at 4 mg daily On Hydralazine 10 mg PRN, Lopressor 25 mg BID Verapamil 240 mg daily, Coumadin 4 mg daily Continue IV antibiotics as ordered by ID Continue current treatment Continue current medications Glucose control Will follow up Plan and treatment discussed with Dr. Del Toro
[2018-06-29] MEDS: Vancomycin 1gm in NS 250ml 1 GM/250 ML BAG IVPB SCH ×2 (09:44→20:44)
[2018-06-29] MEDS: Tiotropium 18 mcg Cap For Inhalation IH SCH (09:45)
[2018-06-29] MEDS: Nystatin 100,000 Units/gm Cream(15 gm) TOP SCH ×4 (09:45→18:03)
[2018-06-29] MEDS: Insulin Lispro (humaLOG) MEDIUM Coverage SC SCH ×4 (09:46→21:14)
[2018-06-29] MEDS: Verapamil 240 mg ER Tab PO SCH (09:46)
--- NOTE | 2018-06-29 10:54 | CP.PCM.PN ---
<Donald Marie - Last Filed: 06/29/18 13:21> Subjective - Date & Time of Evaluation Date of Evaluation: 06/29/18 Time of Evaluation: 10:45 - Subjective Subjective: ID Progress Note Patient seen and examined. Patient with no new complaints. No fevers overnight. Objective - Vital Signs/Intake and Output Vital Signs (last 24 hours): Temp Pulse Resp BP Pulse Ox 98 F 79 19 178/84 H 93 L 06/29/18 06:00 06/29/18 09:50 06/29/18 06:00 06/29/18 09:50 06/29/18 06:00 Intake and Output: 06/29/18 06/29/18 06:59 18:59 Intake Total 360 Output Total 700 Balance -340 - Medications Medications: Current Medications Dextrose (Dextrose 50% Inj) 0 ml IV STAT PRN; Protocol PRN Reason: Hypoglycemia Protocol Fluticasone Propionate (Flonase) 1 actuation NS HS [facility] Last Admin: 06/28/18 21:30 Dose: 1 spray Hydralazine HCl (Apresoline) 10 mg PO QID PRN PRN Reason: for sbp>170 Last Admin: 06/29/18 09:50 Dose: 10 mg Dextrose (Dextrose 5% In Water 1000 Ml) 1,000 mls @ 0 mls/hr IV .Q0M PRN; Protocol PRN Reason: Hypoglycemia Protocol Meropenem (Merrem Iv 1 Gm Premix) 1 gm in 50 mls @ 100 mls/hr IVPB Q8 [facility]; Protocol Stop: 07/01/18 22:01 Last Admin: 06/29/18 06:28 Dose: 100 mls/hr Vancomycin HCl (Vancomycin 1gm) 1 gm in 250 mls @ 167 mls/hr IVPB Q12H [facility]; Protocol Last Admin: 06/29/18 09:44 Dose: 167 mls/hr Insulin Detemir (Levemir) 12 unit SC HS [facility] Last Admin: 06/28/18 21:12 Dose: 12 u Insulin Human Lispro (Humalog Med) 0 units SC ACHS [facility]; Protocol Last Admin: 06/29/18 09:46 Dose: 5 units Levalbuterol HCl (Xopenex) 1.25 mg IH [id number] Last Admin: 06/29/18 07:40 Dose: 1.25 mg Metoprolol Tartrate (Lopressor) 25 mg PO BID [facility] Last Admin: 06/29/18 09:45 Dose: 25 mg Nystatin (Mycostatin Cream) 0 ea TOP TID [facility] Last Admin: 06/29/18 09:45 Dose: 1 applic Ondansetron HCl (Zofran Inj) 4 mg IVP Q6H PRN PRN Reason: Nausea/Vomiting Last Admin: 06/23/18 20:21 Dose: 4 mg Pantoprazole Sodium (Protonix Ec Tab) 40 mg PO Q12H [facility] Last Admin: 06/29/18 06:28 Dose: 40 mg Sodium Chloride ([place] Nasal [employer]) 0 ml NS Q4H [facility] Last Admin: 06/29/18 09:47 Dose: 2 spr Tiotropium [place] (Spiriva) 18 mcg IH DAILY [facility] Last Admin: 06/29/18 09:45 Dose: 18 mcg Verapamil HCl (Calan Sr Tab) 240 mg PO DAILY [facility] Last Admin: 06/29/18 09:46 Dose: 240 mg Warfarin Sodium (Coumadin) 4 mg PO 1800 [facility]; Protocol Last Admin: 06/28/18 17:33 Dose: 4 mg - Labs Labs: 06/27/18 06:40 06/27/18 06:40 PT 26.7 SECONDS (9.4-12.5) H 06/28/18 07:20 INR 2.36 06/28/18 07:20 APTT 39.1 Seconds (25.1-36.5) H 06/26/18 06:15 - Constitutional Appears: Non-toxic, No Acute Distress - Head Exam Head Exam: ATRAUMATIC, NORMAL INSPECTION, NORMOCEPHALIC - ENT Exam ENT Exam: Mucous Membranes Moist - Respiratory Exam Respiratory Exam: Clear to Ausculation Bilateral, NORMAL BREATHING PATTERN - Cardiovascular Exam Cardiovascular Exam: RRR, +S1, +S2 - GI/Abdominal Exam GI & Abdominal Exam: Soft, Normal Bowel Sounds. absent: Tenderness - Extremities Exam Extremities Exam: Pedal Edema (b/l trace) - Neurological Exam Neurological Exam: Alert, Awake, Oriented x3 - Psychiatric Exam Psychiatric exam: Normal Affect, Normal Mood - Skin Skin Exam: Intact, Normal Color, Warm Assessment and Plan - Assessment and Plan (Free Text) Plan: Severe sepsis from right sided HCAP and complicated UTI with E. faecalis and ESBL-producing E. coli in this patient who underwent a urologic procedure Hx of sepsis due to complicated UTI associated with indwelling montague catheter, with urine growing E. coli Hx of severe sepsis with acute renal failure due to probable complicated UTI associated with indwelling montague catheter, grew ESBL-producing E. coli Hx of HTN Hx of DM morbid obesity with BMI 53 chronic montague catheter use typically changed every month Hx of chronic atrial fibrillation S/P laminectomy in 2014 Plan Continue Vancomycin and Merrem day 9/10 days, complete full course Urine culture demonstrates ESBL-producing E.coli and E. faecalis Follow up with Cardiology and Urology recommendations Continue to monitor clinically Cynthia, PGY-3 <Talib Cisneros S - Last Filed: 06/29/18 14:23> Objective - Vital Signs/Intake and Output Vital Signs (last 24 hours): Temp Pulse Resp BP Pulse Ox 98 F 79 19 178/84 H 93 L 06/29/18 06:00 06/29/18 09:50 06/29/18 06:00 06/29/18 09:50 06/29/18 06:00 Intake and Output: 06/29/18 06/29/18 06:59 18:59 Intake Total 360 Output Total 700 Balance -340 - Medications Medications: Current Medications Dextrose (Dextrose 50% Inj) 0 ml IV STAT PRN; Protocol PRN Reason: Hypoglycemia Protocol Fluticasone Propionate (Flonase) 1 actuation NS HS [facility] Last Admin: 06/28/18 21:30 Dose: 1 spray Hydralazine HCl (Apresoline) 10 mg PO QID PRN PRN Reason: for sbp>170 Last Admin: 06/29/18 09:50 Dose: 10 mg Dextrose (Dextrose 5% In Water 1000 Ml) 1,000 mls @ 0 mls/hr IV .Q0M PRN; Protocol PRN Reason: Hypoglycemia Protocol Meropenem (Merrem Iv 1 Gm Premix) 1 gm in 50 mls @ 100 mls/hr IVPB Q8 [facility]; Protocol Stop: 07/01/18 22:01 Last Admin: 06/29/18 06:28 Dose: 100 mls/hr Vancomycin HCl (Vancomycin 1gm) 1 gm in 250 mls @ 167 mls/hr IVPB Q12H [facility]; Protocol Last Admin: 06/29/18 09:44 Dose: 167 mls/hr Insulin Detemir (Levemir) 12 unit SC HS [facility] Last Admin: 06/28/18 21:12 Dose: 12 u Insulin Human Lispro (Humalog Med) 0 units SC ACHS [facility]; Protocol Last Admin: 06/29/18 11:50 Dose: 3 units Levalbuterol HCl (Xopenex) 1.25 mg IH [id number] [facility] Last Admin: 06/29/18 13:45 Dose: 1.25 mg Metoprolol Tartrate (Lopressor) 25 mg PO BID [facility] Last Admin: 06/29/18 09:45 Dose: 25 mg Nystatin (Mycostatin Cream) 0 ea TOP TID [facility] Last Admin: 06/29/18 09:45 Dose: 1 applic Nystatin (Nystop Topical Powder) 0 gm TOP BID [facility] Ondansetron HCl (Zofran Inj) 4 mg IVP Q6H PRN PRN Reason: Nausea/Vomiting Last Admin: 06/23/18 20:21 Dose: 4 mg Pantoprazole Sodium (Protonix Ec Tab) 40 mg PO Q12H [facility] Last Admin: 06/29/18 06:28 Dose: 40 mg Sodium Chloride ([place] Nasal [employer]) 0 ml NS Q4H [facility] Last Admin: 06/29/18 09:47 Dose: 2 spr Tiotropium [place] (Spiriva) 18 mcg IH DAILY [facility] Last Admin: 06/29/18 09:45 Dose: 18 mcg Verapamil HCl (Calan Sr Tab) 240 mg PO DAILY [facility] Last Admin: 06/29/18 09:46 Dose: 240 mg Warfarin Sodium (Coumadin) 4 mg PO 1800 [facility]; Protocol Last Admin: 06/28/18 17:33 Dose: 4 mg - Labs Labs: 06/29/18 11:00 06/29/18 11:00 PT 26.7 SECONDS (9.4-12.5) H 06/28/18 07:20 INR 2.36 06/28/18 07:20 APTT 39.1 Seconds (25.1-36.5) H 06/26/18 06:15 Assessment and Plan - Assessment and Plan (Free Text) Plan: Infectious diseases Attending Physician Attestation Patient seen and examined, discussed with medical research assistant. I have reviewed the patient's history of present illness, past medical, social, personal and family histories, pertinent physical exam findings, course so far in this hospital admission, pertinent laboratory and imaging results. I agree with the above findings, assessment and plan. In addition, complete up to 10 days of Vancomycin and Merrem for patient with complicated UTI with ESBL E. coli and E.faecalis with severe sepsis, clinically improving (day 9 today).
[2018-06-29 11:21] LABS: BASO # 0.02 K/mm3 (0.0-2.0); BASO % 0.2 % (0.0-3.0); EOS # 0.3 (0.0-0.7); EOS % 2.5 % (1.5-5.0); HEMOGLOBIN 13.3 g/dL (14.0-18.0); LYMPH # 1.3 (1.2-3.4); LYMPH % 12.8 % (22.0-35.0); MEAN CELL VOLUME 83.5 fl (80.0-105.0); MEAN CORPUSCULAR HEMOGLOBIN 26.7 pg (25.0-35.0); MEAN PLATELET VOLUME 11.5 fl (7.0-11.0); MONO # 0.7 (0.1-0.6); MONO % 7.1 % (1.0-6.0); RBC 4.98 10^6/uL (3.5-6.1); RED CELL DISTRIBUTION WIDTH 14.4 % (11.5-14.5); WHITE BLOOD COUNT 10.2 10^3/uL (4.5-11.0)
[2018-06-29 11:31] LABS: ALB/GLOB RATIO 0.9 (1.1-1.8); ALT/SGPT 58 U/L (7-56); AST/SGOT 26 U/L (17-59); BLOOD UREA NITROGEN 8 mg/dL (7-21); CALCIUM 8.4 mg/dL (8.4-10.5); GFR NON-AFRICAN AMERICAN > 60
--- NOTE | 2018-06-29 12:10 | PN ---
DATE: 06/29/2018 PULMONARY PROGRESS NOTE REFERRING PHYSICIAN: Ankit Ly MD SUBJECTIVE: The patient is sitting in bed. No acute distress. No overnight events reported. The patient reports feeling well today. No headache, rhinitis, cough, shortness of breath, chest pain, abdominal pain, nausea, vomiting, diarrhea, leg pain or leg swelling reported. OBJECTIVE GENERAL: No acute distress. VITAL SIGNS: Blood pressure 178/84, pulse 79, temperature 98 and oxygen saturation 93%. HEENT: Moist mucous membranes. Crowded airway. Mallampati score 4. NECK: Supple. No JVD. LUNGS: Fair airflow bilaterally. CARDIOVASCULAR: S1 and S2 audible. ABDOMEN: Soft and nontender. No distention. No organomegaly. EXTREMITIES: Trace bilateral lower extremity edema. NEUROLOGIC: Awake, alert and verbal. Follows commands. MEDICATIONS: Reviewed. Flonase nasal spray at bedtime, hydralazine 10 mg 4 times a day p.r.n. for systolic blood pressure greater than 170, Levemir 12 units subcutaneously at bedtime, Humalog sliding scale a.c. and at bedtime, Xopenex 1.25 mg inhalation every 6 hours, meropenem 1 g every 8 hours, Lopressor 25 mg twice a day, nystatin topically 3 times a day to affected area, Zofran 4 mg every 6 hours p.r.n., Protonix 40 mg every 12 hours, [place] nasal spray every 4 hours, Spiriva 18 mcg daily, vancomycin 1 g every 12 hours, verapamil 240 mg p.o. daily and Coumadin 4 mg daily. LABORATORY DATA: Reviewed. POC glucose 251. 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 The patient is bedridden. Continue gastric prophylaxis. The patient reports using bilevel positive airway pressure last night, continue bilevel positive airway pressure use at bedtime, sleep apnea precaution, head of bed elevated at 45 degrees, continue inhaled bronchodilators. Discharge planning per urologist, need to address suprapubic functioning. Continue antibiotics as per Infectious Disease. This patient was seen and examined with Dr. Dunbar. Discussed assessment and plan as described above. Thank you for this consult and we will follow with you. Diego Barnes APN Yosef Dunbar MD
[2018-06-29] MEDS: Nystatin 100,000 Units/gm Topical Pow(15 gm) TOP SCH (17:54)
[2018-06-29] MEDS: Insulin Detemir 100 units/ml Vial (Levemir) SC SCH (21:09)
--- NOTE | 2018-06-30 02:13 | PN ---
DATE: 06/29/2018 SUBJECTIVE: The patient was seen and examined at the bedside on 06/29/2018, looking comfortable. No fever. No chills. No hematuria. No hematochezia. No shortness of breath. No headache. No dizziness. PHYSICAL EXAMINATION: VITAL SIGNS: Blood pressure 170/80, pulse 79, temperature 98, and oxygenation 93%. HEENT: Head; normocephalic and atraumatic. Eyes; PERRLA. Extraocular muscles intact. Conjunctivae clear. Nose patent. Mucous membranes are moist. NECK: Supple. No carotid bruits. No JVD or thyromegaly. CHEST: Bilaterally symmetrical. HEART: S1 and S2, positive. LUNGS: Clear to auscultation. ABDOMEN: Soft. Bowel sounds present. No organomegaly. EXTREMITIES: Trace edema. NEUROLOGIC: The patient is awake and alert. Follows simple commands. MEDICATIONS: Flonase, hydralazine, blood pressure medication, Levemir, Humalog, Xopenex, Lopressor, nystatin, Zofran, Protonix, and nasal spray. LABORATORY DATA: We do not have recent labs, but I reviewed old labs, glucose is 251. ASSESSMENT AND PLAN: Mr. Marcus Valdovinos is a 57-year-old male status post suprapubic catheter placement, sepsis with urinary tract infection, now the patient has both suprapubic and indwelling Ceron catheter status post atrial fibrillation with rapid ventricular response, getting Coumadin, chronic obstructive lung disease, sleep apnea syndrome, paraplegia secondary to spinal tumor and injury, decubitus ulcer, morbid obesity, diabetes mellitus. Needed medical readjustment for blood pressure. Gastrointestinal and deep venous thrombosis prophylaxis. Repeat laboratories. We will follow up. Thalia Frazier MD
[2018-06-30] MEDS: Levalbuterol 1.25 MG/3 ML Inhal Soln UD IH SCH ×4 (02:50→22:12)
--- NOTE | 2018-06-30 07:10 | CP.PCM.PN ---
Subjective - Date & Time of Evaluation Date of Evaluation: 06/30/18 Time of Evaluation: 06:40 - Subjective Subjective: No distress, Lying in bed, awake, Reason for consultation and follow up: Cardiac evaluation of SVT, history of atrial fibrillation, Seen and examined by me and Dr. Del Toro Objective - Vital Signs/Intake and Output Vital Signs (last 24 hours): Temp Pulse Resp BP Pulse Ox 98.4 F 76 18 145/89 96 06/29/18 22:00 06/30/18 02:50 06/29/18 22:00 06/29/18 17:52 06/29/18 22:00 Intake and Output: 06/30/18 06/30/18 06:59 18:59 Intake Total 240 Output Total 2200 Balance -1960 - Medications Medications: Current Medications Dextrose (Dextrose 50% Inj) 0 ml IV STAT PRN; Protocol PRN Reason: Hypoglycemia Protocol Fluticasone Propionate (Flonase) 1 actuation NS HS [facility] Last Admin: 06/28/18 21:30 Dose: 1 spray Hydralazine HCl (Apresoline) 10 mg PO QID PRN PRN Reason: for sbp>170 Last Admin: 06/29/18 09:50 Dose: 10 mg Dextrose (Dextrose 5% In Water 1000 Ml) 1,000 mls @ 0 mls/hr IV .Q0M PRN; Protocol PRN Reason: Hypoglycemia Protocol Meropenem (Merrem Iv 1 Gm Premix) 1 gm in 50 mls @ 100 mls/hr IVPB Q8 [facility]; Protocol Stop: 07/01/18 22:01 Last Admin: 06/29/18 22:45 Dose: 100 mls/hr Vancomycin HCl (Vancomycin 1gm) 1 gm in 250 mls @ 167 mls/hr IVPB Q12H [facility]; Protocol Last Admin: 06/29/18 20:44 Dose: 167 mls/hr Insulin Detemir (Levemir) 12 unit SC HS [facility] Last Admin: 06/29/18 21:09 Dose: 12 u Insulin Human Lispro (Humalog Med) 0 units SC [facility]; Protocol Last Admin: 06/29/18 21:14 Dose: Not Given Levalbuterol HCl (Xopenex) 1.25 mg IH [id number] [facility] Last Admin: 06/30/18 02:50 Dose: 1.25 mg Metoprolol Tartrate (Lopressor) 25 mg PO BID [facility] Last Admin: 06/29/18 17:52 Dose: 25 mg Nystatin (Mycostatin Cream) 0 ea TOP TID [facility] Last Admin: 06/29/18 18:03 Dose: Not Given Nystatin (Nystop Topical Powder) 0 gm TOP BID [facility] Last Admin: 06/29/18 17:54 Dose: 1 applic Ondansetron HCl (Zofran Inj) 4 mg IVP Q6H PRN PRN Reason: Nausea/Vomiting Last Admin: 06/23/18 20:21 Dose: 4 mg Pantoprazole Sodium (Protonix Ec Tab) 40 mg PO Q12H [facility] Last Admin: 06/29/18 17:52 Dose: 40 mg Sodium Chloride ([place] Nasal [employer]) 0 ml NS Q4H [facility] Last Admin: 06/29/18 17:54 Dose: Not Given Tiotropium [place] (Spiriva) 18 mcg IH DAILY [facility] Last Admin: 06/29/18 09:45 Dose: 18 mcg Verapamil HCl (Calan Sr Tab) 240 mg PO DAILY [facility] Last Admin: 06/29/18 09:46 Dose: 240 mg Warfarin Sodium (Coumadin) 4 mg PO 1800 [facility]; Protocol Last Admin: 06/29/18 17:53 Dose: 4 mg - Labs Labs: 06/29/18 11:00 06/29/18 11:00 PT 26.7 SECONDS (9.4-12.5) H 06/28/18 07:20 INR 2.36 06/28/18 07:20 APTT 39.1 Seconds (25.1-36.5) H 06/26/18 06:15 - Constitutional Appears: Non-toxic, No Acute Distress - Head Exam Head Exam: NORMAL INSPECTION, NORMOCEPHALIC - Eye Exam Eye Exam: Normal appearance - ENT Exam ENT Exam: Mucous Membranes Moist - Respiratory Exam Respiratory Exam: Decreased Breath Sounds, NORMAL BREATHING PATTERN - Cardiovascular Exam Cardiovascular Exam: +S1, +S2 - GI/Abdominal Exam GI & Abdominal Exam: Soft, Normal Bowel Sounds - Exam Additional comments: suprapubic and montague catheter - Neurological Exam Neurological Exam: Alert, Awake - Psychiatric Exam Psychiatric exam: Normal Affect, Normal Mood - Skin Skin Exam: Normal Color, Warm Assessment and Plan - Assessment and Plan (Free Text) Assessment: A 57 year old morbidly obese male who was brought to the ER for suprapubic cystostomy. post op complicated by rapid rate atrial fibrillation/flutter, septic shock, elevated WBC. Adenosine was given but heart rate did not slow down and Verapamil,digoxin and Lopressor IV given. Hypotensive. Started on Cardizem drip and transferred to ICU for close monitoring. Heart rate eventually slowed down. Blood pressure stabilized.History of atrial fibrillation, diabetes, urinary retention s/p indwelling montague catheter, cerebral palsy, CHF, hypertension, asthma, COPD, CVA, inability to ambulate s/p accident and spinal tumor,bed bound, status post insertion of cystostomy tube and cystogram due to urinary retention. Transferred to medical unit. Stable. Coumadin restarted for atrial fibrillation. INR elevated so Coumadin on hold. INR yesterday 2.36 therapeutic and restarted at 4mg daily. Daily INR. On antibiotics for urinary tract infection. Urine positive for E. Coli. On contact isolation. Plan: no distress On Contact isolation for E.coli in urine On IV antibiotics per ID Cardiac status stable Heart rate controlled Blood pressure controlled On Hydralazine 10 mg PRN, Lopressor 25 mg BID Verapamil 240 mg daily, Coumadin 4 mg daily Daily INR Continue IV antibiotics as ordered by ID Continue current treatment Continue current medications Glucose control Will follow up Plan and treatment discussed with Dr. De lToro
[2018-06-30 08:06] LABS: INR 1.65; PROTHROMBIN TIME 18.7 SECONDS (9.4-12.5)
[2018-06-30] MEDS: Insulin Lispro (humaLOG) MEDIUM Coverage SC SCH ×4 (08:31→22:00)
--- NOTE | 2018-06-30 10:01 | PN ---
DATE: 06/30/2018 PULMONARY PROGRESS NOTE REFERRING PHYSICIAN: Ankit Ly MD SUBJECTIVE: The patient is lying in bed. No acute distress. Reports wearing BiPAP machine last night. Reports feeling well today. No headache, rhinitis, cough, shortness of breath, chest pain, abdominal pain, nausea, vomiting, diarrhea, or leg pain reported. OBJECTIVE: GENERAL: No acute distress. VITAL SIGNS: Blood pressure 152/97, pulse 74, temperature 98.2 and oxygen saturation 96% on room air. HEENT: Moist mucous membranes. Mallampati score of 4. Crowded airway. NECK: Supple. No JVD. LUNGS: Fair airflow bilaterally. CARDIOVASCULAR: S1 and S2 audible. ABDOMEN: Soft and nontender. No distention. No organomegaly. EXTREMITIES: Trace bilateral lower extremity edema. NEUROLOGIC: Awake, alert, and verbal. Follows commands. MEDICATIONS: Reviewed. Flonase one spray nasally at bedtime, hydralazine 10 mg 4 times a day p.r.n., Levemir 12 units subcutaneously at bedtime, Humalog a.c. and at bedtime sliding scale, Xopenex 1.25 mg inhalation every 6 hours, meropenem 1 g every 8 hours, metoprolol titrate 25 mg twice a day, nystatin topically 3 times a day to affected area, Zofran 4 mg IV push every 6 hours p.r.n., Protonix 40 mg every 12 hours, [place] nasal spray every 4 hours, Spiriva 18 mcg inhalation, vancomycin 1 g every 12 hours, verapamil 240 mg daily, and Coumadin 4 mg daily. LABORATORY DATA: Reviewed. PT 18.7 and INR 1.65. POC glucose 253. 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 The patient is bedridden. Continue bilevel positive airway pressure use at bedtime, sleep apnea precaution, head of bed elevated at 45 degrees. Continue inhaled bronchodilators, gastric prophylaxis. The patient currently on anticoagulation therapy. Antibiotics as per Infectious Disease. Discharge planning per urologist. The patient would benefit from physical therapy, pressure ulcer precautions, aspiration precautions. The patient was seen and examined with Dr. Dunbar. Discussed assessment and plan as described above. Thank you for this consult. We will follow with you. Diego Barnes APN Yosef Dunbar MD
[2018-06-30] MEDS: Verapamil 240 mg ER Tab PO SCH (10:25)
[2018-06-30] MEDS: Tiotropium 18 mcg Cap For Inhalation IH SCH (10:25)
[2018-06-30] MEDS: Nystatin 100,000 Units/gm Cream(15 gm) TOP SCH ×3 (10:26→17:09)
[2018-06-30] MEDS: Nystatin 100,000 Units/gm Topical Pow(15 gm) TOP SCH ×2 (10:26→17:09)
[2018-06-30] MEDS: Vancomycin 1gm in NS 250ml 1 GM/250 ML BAG IVPB SCH ×2 (10:28→21:31)
[2018-06-30] MEDS: Meropenem IV 1 gm in NS 1 GM/50 ML BAG IVPB SCH ×2 (13:59→22:33)
[2018-06-30] MEDS: Pantoprazole 40 mg EC Tab PO SCH (17:08)
--- NOTE | 2018-06-30 17:20 | PN ---
DATE: 06/30/2018 SUBJECTIVE: The patient is in bed in no acute distress. PHYSICAL EXAMINATION VITAL SIGNS: With a temperature of 98, blood pressure is 159/90, respiratory of 18, heart rate of 74. HEENT: Unremarkable. NECK: Supple. LUNGS: Have decreased breath sounds. HEART: Normal S1, S2. ABDOMEN: Soft, nontender. LABORATORY EXAMINATION: Reveals a white count of 10,000, hemoglobin of 13, platelets of 236. BUN of 8, creatinine of 0.6. Microbiology reveals the urine culture, suprapubic culture is E. coli and Enterococcus. The E. coli is ESBL and the Enterococcus is sensitive to ampicillin and sensitive to penicillin. ASSESSMENT AND PLAN: This is a 57-year-old male who has super morbid obesity, body mass index 57, admitted with severe sepsis with right-sided healthcare-associated pneumonia and complicated urinary tract infection with Enterococcus coli faecalis and ESBL-producing Enterococcus coli. Underwent a urological procedure and diabetic, hypertensive. On day #10 of vancomycin, meropenem in a patient who is ALLERGIC TO PENICILLIN. Review of orders reveals the vancomycin and meropenem to be active. Noam Madden MD
[2018-06-30] MEDS: Fluticasone Nasal 50 mcg/Spray NS SCH (21:30)
--- NOTE | 2018-06-30 21:40 | CON ---
DATE: 06/21/2018 The patient was seen and examined at the bedside on 06/21/2018. REASON: Low blood pressure, abnormal heart rate. HISTORY OF PRESENT ILLNESS: Mr. Marcus Valdovinos is a 57-year-old male, my private patient, resident of [facility], history of penectomy, history of indwelling Ceron catheter, obesity, COPD, morbidly obese, atrial fibrillation, was brought to the hospital by Dr. Ankit Ly for suprapubic catheter. After procedure, the patient became unstable. Blood pressure dropped. Heart became irregular. Thus, the patient was admitted in the unit. Cardiology consult called with Dr. Del Toro. , There were rapid response. Rapid Response Team did good job. After that, the patient was wheeled to ICU. I saw the patient in ICU. PAST MEDICAL HISTORY: Urinary tract infection multiple times, atrial fibrillation, congestive heart failure, hypertension, morbid obesity, spinal tumor, bedridden, COPD. CURRENT MEDICATIONS: Reviewed by me. Coumadin, Levemir, Ecotrin, melatonin, acetaminophen, Milk of Magnesia, metoprolol, is actually home medications. ALLERGIES: THE PATIENT IS ALLERGIC TO PENICILLIN. HABITS: No smoking. No drugs. No ethanol. FAMILY HISTORY: Father and mother, noncontributory. REVIEW OF SYSTEMS: The patient was seen and examined at the bedside in the unit. The patient is cooperative. No fever. No headache. No dizziness. No chest pain. No palpitation, but looking little bit lethargic. PHYSICAL EXAMINATION: VITAL SIGNS: Heart rate 150, blood pressure 90/60, respiratory rate 18. The patient is afebrile. HEENT: Head: Normocephalic, atraumatic. Eyes: PERRLA. Extraocular muscles are intact. Conjunctivae clear. Nose patent. NECK: Supple. No carotid bruits. No JVD or thyromegaly. CHEST: Bilaterally symmetrical. HEART: S1 and S2 positive. LUNGS: Clear to auscultation. ABDOMEN: Soft. Bowel sounds present. No organomegaly. EXTREMITIES: Trace edema. NEUROLOGICAL: The patient is awake and alert. Follows simple commands. LABORATORY DATA: INR 3.6. Rest of the labs was in the process. ASSESSMENT AND PLAN: Mr. Marcus Valdovinos is a 57-year-old patient with history of multiple medical problems, having diabetes mellitus, hypertension, atrial fibrillation, hypercholesterolemia, bedridden, penectomy, obstructive sleep apnea syndrome, multiple times urinary tract infection, brought by Dr. Ly in the operating room for suprapubic cystotomy. Procedure was done. After that, the patient started heart rate 150, hypotension. Rapid response was done. The patient resuscitated, wheeled to intensive care unit. Cardiology consult called. Antibiotics given. Infectious Disease consult called. Discussion done with Dr. Ly, rule out sepsis, source is urinary tract infection. Repeat labs. We will follow up. Thalia Frazier MD [id number]
[2018-06-30] MEDS: Insulin Detemir 100 units/ml Vial (Levemir) SC SCH (22:33)
--- NOTE | 2018-07-01 00:59 | PN ---
DATE: 06/30/2018 SUBJECTIVE: The patient is 57 years old male. The patient was seen and examined at the bedside on 06/30/2018, looking comfortable, feeling better. No fever. No chills. No hematuria. No hematochezia. No headache. No dizziness. No chest pain. No palpitations. Having suprapubic Ceron catheter that is not working. PHYSICAL EXAMINATION VITAL SIGNS: Blood pressure 150/97, pulse 72, temperature 98.2, oxygenation 96%. HEENT: Head is normocephalic, atraumatic. Eyes; PERRLA. Extraocular muscles intact. Conjunctivae clear. Nose patent. Mucous membranes moist. NECK: Supple. No carotid bruits. No JVD. No thyromegaly. CHEST: Bilateral symmetrical. HEART: S1, S2 positive. LUNGS: Fair airflow bilaterally. ABDOMEN: Soft, nontender. No organomegaly. Having suprapubic catheter, even it is not working. EXTREMITIES: Trace edema bilaterally. NEUROLOGIC: The patient is awake and alert, follows simple commands. MEDICATIONS: Flonase, hydralazine, Levemir, Xopenex, meropenem, metoprolol, nystatin, Zofran, Protonix, vancomycin, verapamil, Coumadin. LABORATORY DATA: INR 1.65. Glucose 253. ASSESSMENT AND PLAN: Mr. Marcus Valdovinos is a 57-year-old male status post suprapubic catheter placement, sepsis, urinary tract infection, status post atrial fibrillation, rapid ventricular response, chronic lung disease, sleep apnea syndrome, paraplegia secondary to spinal tumor accident, decubitus ulcer, morbid obesity, diabetes mellitus, bedridden, penectomy due to accident, having indwelling Ceron catheter, and now this time, Dr. Ly did suprapubic catheter, it is not working very well. Urinary tract infection, getting antibiotics. Discharge planning depend on urologist, but he wants again another procedure or wants to remove the suprapubic catheter. We will discuss with Dr. Ly. Repeat labs. We will follow up. Thalia Frazier MD [facility] # [id number]
[2018-07-01] MEDS: Levalbuterol 1.25 MG/3 ML Inhal Soln UD IH SCH ×4 (01:14→19:50)
[2018-07-01] MEDS: Meropenem IV 1 gm in NS 1 GM/50 ML BAG IVPB SCH (06:26)
[2018-07-01] MEDS: Pantoprazole 40 mg EC Tab PO SCH ×2 (06:27→17:16)
--- NOTE | 2018-07-01 07:05 | CP.PCM.PN ---
Subjective - Date & Time of Evaluation Date of Evaluation: 07/01/18 Time of Evaluation: 06:35 - Subjective Subjective: No distress, awake Reason for consultation and follow up: Cardiac evaluation of SVT, history of atrial fibrillation, History of atrial fibrillation, diabetes, urinary retention s/p indwelling montague catheter, cerebral palsy, CHF, hypertension, asthma, COPD, CVA, inability to ambulate s/p accident and spinal tumor,bed bound. Seen and examined by me and Dr. Del Toro Objective - Vital Signs/Intake and Output Vital Signs (last 24 hours): Temp Pulse Resp BP Pulse Ox 98.8 F 61 18 159/95 H 98 06/30/18 22:02 06/30/18 22:02 06/30/18 22:02 06/30/18 22:02 06/30/18 22:02 Intake and Output: 07/01/18 07/01/18 06:59 18:59 Output Total 800 Balance -800 - Medications Medications: Current Medications Dextrose (Dextrose 50% Inj) 0 ml IV STAT PRN; Protocol PRN Reason: Hypoglycemia Protocol Fluticasone Propionate (Flonase) 1 actuation NS HS [facility] Last Admin: 06/30/18 21:30 Dose: 1 spray Hydralazine HCl (Apresoline) 10 mg PO QID PRN PRN Reason: for sbp>170 Last Admin: 06/29/18 09:50 Dose: 10 mg Dextrose (Dextrose 5% In Water 1000 Ml) 1,000 mls @ 0 mls/hr IV .Q0M PRN; Protocol PRN Reason: Hypoglycemia Protocol Meropenem (Merrem Iv 1 Gm Premix) 1 gm in 50 mls @ 100 mls/hr IVPB Q8 [facility]; Protocol Stop: 07/01/18 22:01 Last Admin: 07/01/18 06:26 Dose: 100 mls/hr Vancomycin HCl (Vancomycin 1gm) 1 gm in 250 mls @ 167 mls/hr IVPB Q12H [facility]; Protocol Last Admin: 06/30/18 21:31 Dose: 167 mls/hr Insulin Detemir (Levemir) 12 unit SC [facility] Last Admin: 06/30/18 22:33 Dose: 12 u Insulin Human Lispro (Humalog Med) 0 units SC [facility]; Protocol Last Admin: 06/30/18 22:00 Dose: Not Given Levalbuterol HCl (Xopenex) 1.25 mg IH [id number] [facility] Last Admin: 07/01/18 01:14 Dose: 1.25 mg Metoprolol Tartrate (Lopressor) 25 mg PO BID [facility] Last Admin: 06/30/18 17:08 Dose: 25 mg Nystatin (Mycostatin Cream) 0 ea TOP TID [facility] Last Admin: 06/30/18 17:09 Dose: 1 applic Nystatin (Nystop Topical Powder) 0 gm TOP BID [facility] Last Admin: 06/30/18 17:09 Dose: 1 applic Ondansetron HCl (Zofran Inj) 4 mg IVP Q6H PRN PRN Reason: Nausea/Vomiting Last Admin: 06/23/18 20:21 Dose: 4 mg Pantoprazole Sodium (Protonix Ec Tab) 40 mg PO Q12H [facility] Last Admin: 07/01/18 06:27 Dose: 40 mg Sodium Chloride ([place] Nasal [place]) 0 ml NS Q4H [facility] Last Admin: 07/01/18 06:27 Dose: 2 spr Tiotropium [place] (Spiriva) 18 mcg IH DAILY [facility] Last Admin: 06/30/18 10:25 Dose: 18 mcg Verapamil HCl (Calan Sr Tab) 240 mg PO DAILY [facility] Last Admin: 06/30/18 10:25 Dose: 240 mg Warfarin Sodium (Coumadin) 5 mg PO 1800 [facility]; Protocol Last Admin: 06/30/18 17:08 Dose: 5 mg - Labs Labs: 06/29/18 11:00 06/29/18 11:00 PT 18.7 SECONDS (9.4-12.5) H 06/30/18 07:30 INR 1.65 06/30/18 07:30 APTT 39.1 Seconds (25.1-36.5) H 06/26/18 06:15 - Constitutional Appears: Non-toxic, No Acute Distress - Head Exam Head Exam: NORMAL INSPECTION, NORMOCEPHALIC - Eye Exam Eye Exam: Normal appearance Pupil Exam: NORMAL ACCOMODATION - ENT Exam ENT Exam: Mucous Membranes Moist, Normal Exam - Respiratory Exam Respiratory Exam: Decreased Breath Sounds, NORMAL BREATHING PATTERN - Cardiovascular Exam Cardiovascular Exam: +S1, +S2 - GI/Abdominal Exam GI & Abdominal Exam: Soft, Normal Bowel Sounds - Exam Additional comments: suprapubic catheter montague catheter - Neurological Exam Neurological Exam: Alert, Awake - Psychiatric Exam Psychiatric exam: Normal Affect, Normal Mood - Skin Skin Exam: Dry, Normal Color, Warm Assessment and Plan - Assessment and Plan (Free Text) Assessment: A 57 year old morbidly obese male who was brought to the ER for suprapubic cystostomy. post op complicated by rapid rate atrial fibrillation/flutter, septic shock, elevated WBC. Adenosine was given but heart rate did not slow down and Verapamil,digoxin and Lopressor IV given. Hypotensive. Started on Cardizem drip and transferred to ICU for close monitoring. Heart rate eventually slowed down. Blood pressure stabilized.History of atrial fibrillation, diabetes, urinary retention s/p indwelling montague catheter, cerebral palsy, CHF, hypertension, asthma, COPD, CVA, inability to ambulate s/p accident and spinal tumor,bed bound, status post insertion of cystostomy tube and cystogram due to urinary retention. Transferred to medical unit. Stable. Coumadin restarted for atrial fibrillation. Daily INR. On antibiotics for urinary tract infection. Urine positive for E. Coli. On contact isolation. Plan: No distress Cardiac status stable Heart rate controlled Blood pressure controlled On Contact isolation for E.coli in urine On Hydralazine 10 mg PRN, Lopressor 25 mg BID Verapamil 240 mg daily, Coumadin 5 mg daily INR yesterday 1.65, increased to Coumadin 5 mg daily Daily INR, pending result Continue IV antibiotics as ordered by ID Continue current treatment Continue current medications Glucose control Will follow up Plan and treatment discussed with Dr. Del Toro
[2018-07-01 07:11] LABS: INR 1.77
[2018-07-01] MEDS: Insulin Lispro (humaLOG) MEDIUM Coverage SC SCH ×5 (08:26→23:15)
--- NOTE | 2018-07-01 09:11 | PN ---
DATE: 07/01/2018 PULMONARY PROGRESS NOTE REFERRING PHYSICIAN: Ankit Ly MD SUBJECTIVE: The patient is lying in bed. No acute distress. No overnight events reported. No headache, rhinitis, cough, shortness of breath, chest pain, abdominal pain, nausea, vomiting, diarrhea, leg pain or leg swelling reported. OBJECTIVE: GENERAL: No acute distress. VITAL SIGNS: Blood pressure 159/95, pulse 61, temperature 98.8 and oxygen saturation 98% on nasal cannula. HEENT: Moist mucous membranes. Crowded airway. Mallampati score of 4. NECK: Supple. No JVD. LUNGS: Fair airflow bilaterally. CARDIOVASCULAR: S1 and S2 audible. ABDOMEN: Soft and nontender. No distention. No organomegaly. EXTREMITIES: Trace bilateral lower extremity edema. NEUROLOGIC: Awake, alert, and verbal. Follows commands. MEDICATIONS: Reviewed. Flonase nasal spray at bedtime, hydralazine 10 mg 4 times a day p.r.n. for systolic blood pressure greater than 170, Levemir 12 units subcutaneously at bedtime, Humalog sliding scale a.c. and at bedtime, Xopenex 1.25 mg inhalation every 6 hours, meropenem 1 g every 8 hours, metoprolol titrate 25 mg twice a day, nystatin topically 3 times a day to affected area, Zofran 4 mg every 6 hours p.r.n., Protonix 40 mg every 12 hours, [place] nasal spray every 4 hours, Spiriva 18 mcg daily, vancomycin 1 g every 12 hours, verapamil 240 mg daily, and Coumadin 5 mg daily. LABORATORY DATA: Reviewed. PT 20 and INR 1.77. POC glucose 221. 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 The patient is bedridden. Continue inhaled bronchodilators, gastric prophylaxis, sleep apnea precaution, head of bed elevated at 45 degress. Continue bilevel positive airway pressure use at bedtime. The patient currently on anticoagulation therapy. Continue antibiotic therapy per Infectious Disease, pressure ulcer precautions, aspiration precautions. This patient will benefit from physical therapy, seen and examined with Dr. Dunbar. Discussed assessment and plan as described above. Thank you for this consult and we will follow with you. Diego Barnes APN Yosef Dunbar MD
[2018-07-01] MEDS: Vancomycin 1gm in NS 250ml 1 GM/250 ML BAG IVPB SCH (10:27)
[2018-07-01] MEDS: Tiotropium 18 mcg Cap For Inhalation IH SCH (10:27)
[2018-07-01] MEDS: Nystatin 100,000 Units/gm Cream(15 gm) TOP SCH ×3 (10:29→17:17)
[2018-07-01] MEDS: Verapamil 240 mg ER Tab PO SCH (10:29)
[2018-07-01] MEDS: Nystatin 100,000 Units/gm Topical Pow(15 gm) TOP SCH ×2 (10:30→17:17)
--- NOTE | 2018-07-01 19:27 | PN ---
DATE: 07/01/2018 SUBJECTIVE: The patient is seen earlier this morning, comfortable weight. PHYSICAL EXAMINATION: VITAL SIGNS: Temperature is 98, blood pressure is 160/90, respiratory rate of 20, heart rate of 61. HEENT: Unremarkable. NECK: Supple. LUNGS: Have decreased breath sounds. HEART: Normal S1, S2. ABDOMEN: Soft, nontender. LABORATORY DATA: Reveals a white count of 10,000, hemoglobin of 13. Chemistries reveals the BUN of 8, creatinine of 0.6. Microbiology is noted. ASSESSMENT/PLAN: This is a 57-year-old with super morbid obesity, BMI of 57, admitted with severe sepsis, right-sided healthcare-associated pneumonia and complicated urinary tract infection with Enterococcus faecalis and extended-spectrum beta-lactamase producing Escherichia coli underwent a urological procedure in a patient who is diabetic, hypertensive, has completed 10 days of antibiotics. THE PATIENT IS ALLERGIC TO PENICILLIN. On vanco, meropenem. We will discontinue the antibiotics. Noam Madden MD
--- NOTE | 2018-07-01 21:39 | PCM.URO ---
Urology Progress Note - Subjective Other: maintain montague to sd and spt to plug. pt cleared for discharge from gu standpoint. and will follow as outpt - Objective Lab Results Last 24 Hours: Laboratory Results - last 24 hr 06/30/18 06/30/18 07/01/18 15:58 21:07 06:00 PT 20.0 H INR 1.77 POC Glucose (mg/dL) 271 H 244 H 07/01/18 07/01/18 07/01/18 06:38 11:52 15:53 PT INR POC Glucose (mg/dL) 221 H 321 H 287 H Intake & Output: Intake & Output 07/01/18 07/01/18 07/02/18 06:59 18:59 06:59 Intake Total 510 1680 Output Total 800 1550 Balance -290 130 Intake: IV 450 Left Forearm 450 Oral 60 1680 Output: Urine 800 1550 Suprapubic 800 Urethral (Montague) 1550 Vital Signs: Vital Signs - 24 hr 06/30/18 07/01/18 07/01/18 22:02 09:05 10:29 Temperature 98.8 F 98 F Pulse Rate 61 76 75 Respiratory 18 20 Rate Blood Pressure 159/95 H 139/75 160/94 H O2 Sat by Pulse 98 96 Oximetry 07/01/18 07/01/18 07/01/18 14:13 17:16 20:50 Temperature 98.6 F 98 F Pulse Rate 82 82 71 Respiratory 22 18 Rate Blood Pressure 152/99 H 152/99 H 132/78 O2 Sat by Pulse 98 96 Oximetry
[2018-07-01] MEDS: Fluticasone Nasal 50 mcg/Spray NS SCH (23:08)
[2018-07-01] MEDS: Insulin Detemir 100 units/ml Vial (Levemir) SC SCH (23:13)
[2018-07-02] MEDS: Levalbuterol 1.25 MG/3 ML Inhal Soln UD IH SCH ×3 (01:06→13:51)
--- NOTE | 2018-07-02 03:02 | PN ---
DATE: 07/01/2018 SUBJECTIVE: The patient is a 57-year-old male. The patient was seen and examined at the bedside, looking comfortable. No fever. No chills. No hematuria or hematochezia. No swelling of the legs. No chest pain. No palpitation. Still suprapubic catheter is not draining. PHYSICAL EXAMINATION: VITAL SIGNS: Blood pressure 159/95, pulse 61, temperature 98.8, oxygen saturation 98% on nasal cannula. HEENT: Head: Normocephalic, atraumatic. Eyes: PERRLA. Extraocular muscles are intact. Conjunctivae clear. Nose patent. Mucous membranes moist. NECK: Supple. No carotid bruit. No JVD or thyromegaly. CHEST: Bilaterally symmetrical. HEART: S1 and S2, positive. LUNGS: Clear to auscultation. ABDOMEN: Soft. Bowel sounds present. No organomegaly. EXTREMITIES: No edema. No cyanosis. NEUROLOGICAL: The patient is awake and alert. Follows simples commands. MEDICATIONS: Flonase, hydralazine, Levemir, Xopenex, meropenem, metoprolol, Zofran, Protonix, Spiriva, Coumadin. LABORATORY DATA: We do not have recent labs today, but I reviewed old labs. PT 20, INR 1.77. Glucose 221. ASSESSMENT AND PLAN: Mr. Marcus Valdovinos is a 57-year-old male with multiple medical problems, comorbid obesity, status post suprapubic catheter placement. Length of time discussion done with Dr. Ly. According to him, he wants to continue indwelling Ceron catheter till suprapubic catheter place get maturation. Urinary tract infection, status post atrial fibrillation, on Coumadin with ventricular rapid response; chronic obstructive pulmonary disease; obstructive sleep apnea syndrome; paraplegia, secondary to spinal tumor; decubitus ulcer; morbid obesity; diabetes; chronic lung disease. The patient is bedridden. Gastrointestinal and deep venous thrombosis prophylaxis. Repeat labs. Reviewed Dr. Dunbar, nurse practitioner's notes, Dr. Madden's notes, and Dr. Ankit Ly's notes also. Dr. Ly will discharge the patient. Antibiotics course is completed today. Thalia Frazier MD [facility] # [id number] [place]
[2018-07-02 07:55] LABS: INR 1.81; PROTHROMBIN TIME 20.4 SECONDS (9.4-12.5)
[2018-07-02] MEDS: Insulin Lispro (humaLOG) MEDIUM Coverage SC SCH ×2 (08:27→12:08)
[2018-07-02] MEDS: Verapamil 240 mg ER Tab PO SCH (10:25)
[2018-07-02] MEDS: Tiotropium 18 mcg Cap For Inhalation IH SCH (10:25)
[2018-07-02] MEDS: Nystatin 100,000 Units/gm Topical Pow(15 gm) TOP SCH (10:26)
[2018-07-02] MEDS: Pantoprazole 40 mg EC Tab PO SCH (10:26)
[2018-07-02] MEDS: Nystatin 100,000 Units/gm Cream(15 gm) TOP SCH (10:27)
--- NOTE | 2018-07-02 12:55 | CP.PCM.PN ---
Subjective - Date & Time of Evaluation Date of Evaluation: 07/02/18 Time of Evaluation: 10:15 - Subjective Subjective: Comfortable in bed, non-toxic, no fevers. Objective - Vital Signs/Intake and Output Vital Signs (last 24 hours): Temp Pulse Resp BP Pulse Ox 97.6 F 77 18 133/78 98 07/02/18 06:00 07/02/18 10:25 07/02/18 06:00 07/02/18 10:25 07/02/18 06:00 Intake and Output: 07/02/18 07/02/18 06:59 18:59 Output Total 900 Balance -900 - Medications Medications: Current Medications Dextrose (Dextrose 50% Inj) 0 ml IV STAT PRN; Protocol PRN Reason: Hypoglycemia Protocol Fluticasone Propionate (Flonase) 1 actuation NS [facility] Last Admin: 07/01/18 23:08 Dose: 1 spray Hydralazine HCl (Apresoline) 10 mg PO QID PRN PRN Reason: for sbp>170 Last Admin: 06/29/18 09:50 Dose: 10 mg Dextrose (Dextrose 5% In Water 1000 Ml) 1,000 mls @ 0 mls/hr IV .Q0M PRN; Protocol PRN Reason: Hypoglycemia Protocol Insulin Detemir (Levemir) 12 unit SC [facility] Last Admin: 07/01/18 23:13 Dose: 12 u Insulin Human Lispro (Humalog Med) 0 units SC [facility]; Protocol Last Admin: 07/02/18 12:08 Dose: 5 units Levalbuterol HCl (Xopenex) 1.25 mg IH [id number] [facility] Last Admin: 07/02/18 07:48 Dose: 1.25 mg Metoprolol Tartrate (Lopressor) 25 mg PO BID [facility] Last Admin: 07/02/18 10:25 Dose: 25 mg Nystatin (Mycostatin Cream) 0 ea TOP TID [facility] Last Admin: 07/02/18 10:27 Dose: 1 applic Nystatin (Nystop Topical Powder) 0 gm TOP BID [facility] Last Admin: 07/02/18 10:26 Dose: 1 applic Ondansetron HCl (Zofran Inj) 4 mg IVP Q6H PRN PRN Reason: Nausea/Vomiting Last Admin: 06/23/18 20:21 Dose: 4 mg Pantoprazole Sodium (Protonix Ec Tab) 40 mg PO Q12H [facility] Last Admin: 07/02/18 10:26 Dose: 40 mg Sodium Chloride ([place] Nasal [place]) 0 ml NS Q4H [facility] Last Admin: 07/02/18 10:28 Dose: Not Given Tiotropium [place] (Spiriva) 18 mcg IH DAILY [facility] Last Admin: 07/02/18 10:25 Dose: 18 mcg Verapamil HCl (Calan Sr Tab) 240 mg PO DAILY [facility] Last Admin: 07/02/18 10:25 Dose: 240 mg Warfarin Sodium (Coumadin) 6 mg PO 1800 [facility]; Protocol Last Admin: 07/01/18 17:16 Dose: 6 mg - Labs Labs: 06/29/18 11:00 06/29/18 11:00 PT 20.4 SECONDS (9.4-12.5) H 07/02/18 07:40 INR 1.81 07/02/18 07:40 APTT 39.1 Seconds (25.1-36.5) H 06/26/18 06:15 - Constitutional Appears: Chronically Ill - Head Exam Head Exam: NORMAL INSPECTION - Respiratory Exam Respiratory Exam: Decreased Breath Sounds - Cardiovascular Exam Cardiovascular Exam: +S1, +S2 - GI/Abdominal Exam GI & Abdominal Exam: Soft. absent: Tenderness Assessment and Plan - Assessment and Plan (Free Text) Plan: Assessment S/P severe sepsis from right sided HCAP and complicated UTI with E. faecalis and ESBL-producing E. coli in this patient who underwent a urologic procedure history of sepsis due to complicated UTI associated with indwelling montague catheter, with urine growing E. coli history of severe sepsis with acute renal failure due to probable complicated UTI associated with indwelling montague catheter, grew ESBL-producing E. coli HTN DM morbid obesity with BMI 53 chronic montague catheter use typically changed every month chronic atrial fibrillation S/P laminectomy in 2014 Plan completed 10 day course of Vancomycin and Merrem will continue to monitor clinically off antibiotics since he is at risk for nosocomial infections
--- NOTE | 2018-07-02 13:59 | PN ---
DATE: 07/02/2018 PULMONARY PROGRESS NOTE REFERRING PHYSICIAN: Dr. Ly. SUBJECTIVE: The patient is lying in bed, reports feeling well today. He states he did not wear BiPAP machine last night, states he fell asleep. No headache, rhinitis, cough, shortness of breath, chest pain, abdominal pain, nausea, vomiting, diarrhea, leg pain or leg swelling reported. OBJECTIVE: VITAL SIGNS: Blood pressure 133/78, pulse 77, temperature 97.6, and oxygen saturation 98% nasal cannula. HEENT: Moist mucous membranes. Mallampati score of 4, crowded airway. NECK: Supple, no JVD. LUNGS: Fair airflow bilaterally. CARDIOVASCULAR: S1 and S2 audible. ABDOMEN: Soft, nontender. No distention and no organomegaly. EXTREMITIES: Trace bilateral lower extremity edema. NEUROLOGIC: Awake, alert, verbal. Follows commands. LABORATORY DATA: Reviewed. PT 20.4, INR 1.81, POC glucose 283. MEDICATIONS: Reviewed. Flonase nasal spray at bedtime, Apresoline 10 mg 4 times a day p.r.n. for systolic BP greater than 170, Levemir 12 units subcutaneously at bedtime, Humalog sliding scale breakfast and bedtime, Xopenex 1.25 mg inhalation every 6 hours, metoprolol tartrate 25 mg twice a day, nystatin topically 3 times a day to the affected area, Zofran 4 mg every 6 hours p.r.n., Protonix 40 mg every 12 hours, [place] nasal spray every 4 hours, Spiriva 18 mcg daily, verapamil 240 mg daily, and Coumadin 6 mg daily. 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 The patient is bedridden. Continue the bronchodilator. Gastric prophylaxis. Sleep apnea precaution. Head of bed elevated at 45 degrees. The patient is stable at this point from Pulmonary status. Urology notes appreciated. The patient is cleared by urologist. Continue BiPAP use at bedtime. Currently on anticoagulation therapy. The patient is no longer on antibiotic therapy. Pressure ulcer precautions. The patient is seen and examined with Dr. Dunbar. Discussed assessment and plan as described above. Thank you for this consult. We will follow with you. Diego Barnes APN Yosef Dunbar MD [facility] # [id number]
[2018-07-02 15:19] VITALS: BP 163/78; PULSE 84; RESP 20; TEMP 97.4; O2SAT 97
--- NOTE | 2018-07-02 19:10 | PN ---
DATE: 07/02/2018 REASON FOR CONSULTATION: Follow up SVT, status post suprapubic cystostomy, AFib, rapid ventricular rate, sepsis. Now the patient , lying comfortably. Denies any chest pain, shortness of breath, any palpitations. OBJECTIVE: GENERAL: Not in apparent distress. VITAL SIGNS: Temperature afebrile, heart rate 77 and blood pressure 133/78. HEENT: PERRLA. Extraocular muscles intact. NECK: Supple. No carotid bruit. No thyromegaly. CHEST: Clear to auscultation. HEART: S1 and S2 regular. ABDOMEN: Soft. EXTREMITIES: Clubbing and cyanosis negative. LABORATORY DATA: Blood workup as follows: WBC 13, hemoglobin 13.3, hematocrit 41.6 and platelet count 236. Chemistry as of 06/29/2018 showed 134 sodium, potassium 5.4, chloride , anion gap of 8, BUN 8 and creatinine 0.6. Coagulation profile INR 1.81. IMPRESSION: History of morbid obesity, history of paroxysmal atrial fibrillation on anticoagulation, admitted for suprapubic cystostomy. Postop course complicated by septic shock, atrial fibrillation with rapid ventricular rate and now the patient converted to normal sinus and no anticoagulation, was on Coumadin. Today INR is 1.8. The patient has supratherapeutic INR so Coumadin was cut to 4 and now was subtherapeutic now so back to 6 mg, now is 1.88. RECOMMENDATION: Continue verapamil and continue Coumadin 5 mg. Cerebrovascular accident status stable. Discharge planning. Thank you Dr. Frazier for providing us the opportunity in taking care of the patient, Marcus Valdovinos. Yosef Del Toro MD cc: Thalia Frazier MD
== END 2018-07-02 17:07 | DRG 871 ==
LOC: SDS 10:00 → OBSVTOIN 16:51 → SDAINP 16:51 → ICU 19:05 → 2RSO 06-23 23:56 → 5RSO 06-26 21:58
PROVIDERS: ADMIT Internal Medicine; ATTEND Urology
PROC: BT101ZZ Fluoroscopy of Bladder using Low Osmolar Contrast (ICD-10-PCS; 2018-06-21)
PROC: 3E0F7GC Introduction of Other Therapeutic Substance into Respiratory Tract, Via Natural or Artificial Opening (ICD-10-PCS; 2018-06-21)
PROC: 0T9B30Z Drainage of Bladder with Drainage Device, Percutaneous Approach (ICD-10-PCS; principal; 2018-06-21 12:30)
PROC: 5A09457 Assistance with Respiratory Ventilation, 24-96 Consecutive Hours, Continuous Positive Airway Pressure (ICD-10-PCS; 2018-06-24)
DX: A41.50 Gram-negative sepsis, unspecified (principal); R65.21 Severe sepsis with septic shock; J18.9 Pneumonia, unspecified organism; Z68.43 Body mass index [BMI] 50.0-59.9, adult; I48.92 Unspecified atrial flutter; N39.0 Urinary tract infection, site not specified; N17.9 Acute kidney failure, unspecified; I97.191 Other postprocedural cardiac functional disturbances following other surgery; G82.20 Paraplegia, unspecified; J44.0 Chronic obstructive pulmonary disease with (acute) lower respiratory infection; I47.1 Supraventricular tachycardia; R33.9 Retention of urine, unspecified; E66.01 Morbid (severe) obesity due to excess calories; I48.2 Chronic atrial fibrillation; E11.65 Type 2 diabetes mellitus with hyperglycemia; I25.10 Atherosclerotic heart disease of native coronary artery without angina pectoris; I11.0 Hypertensive heart disease with heart failure; I50.9 Heart failure, unspecified; I48.0 Paroxysmal atrial fibrillation; G47.33 Obstructive sleep apnea (adult) (pediatric); R79.1 Abnormal coagulation profile; E78.00 Pure hypercholesterolemia, unspecified; L89.90 Pressure ulcer of unspecified site, unspecified stage; Q54.9 Hypospadias, unspecified; Y95 Nosocomial condition; Y84.8 Other medical procedures as the cause of abnormal reaction of the patient, or of later complication, without mention of misadventure at the time of the procedure; Z74.01 Bed confinement status; Z79.01 Long term (current) use of anticoagulants; Z86.73 Personal history of transient ischemic attack (TIA), and cerebral infarction without residual deficits; Z88.0 Allergy status to penicillin; Z87.891 Personal history of nicotine dependence